=== PATIENT | male | born 1960 | race Caucasian/White ===

== ENCOUNTER 2016-08-26 02:27 | Emergency (ER) | payer BC ==
[~2016-08-26] VITALS: Ht 167.6 cm; Wt 76.9 kg
[~2016-08-26 02:27] MED LIST: ASPI81TA28 PO; BSP15 PO; CYAN1TAB2 PO; DIPH-416 PO; DTRSR/2 PO; DULO1CAP40 PO; FRCT/ PO; MELO7.5T5 PO; MGCCMP100 MT; MORP30TA PO; NRN800 PO; PRT/40 PO; RIZA1TAB11 PO; SRQ100 PO; SUCR1TAB29 PO; TADA5TAB11 PO; TEST1INJ2 INJ; WLLSR/200 PO
[2016-08-26 02:35] VITALS: TEMP 36.7; Ht 167.6 cm; Wt 76.9 kg
[2016-08-26] MEDS ORDERED: IBUPROFEN 600 MG TAB PO STA (03:01)
[2016-08-26] MEDS ORDERED: ACETAMINOPHEN 500 MG TAB PO STA (03:01)
[2016-08-26] MEDS ORDERED: BUPR200T2 PO (04:06)
[2016-08-26] MEDS ORDERED: AMPH20TA2 PO (04:07)
[2016-08-26] MEDS ORDERED: PRED20TA2 PO (04:14)
[2016-08-26] MEDS ORDERED: CYCL10TA6 PO (04:14)
[2016-08-26] MEDS ORDERED: FLEXERIL HOME PACK 10 MG VIAL PO ONE (04:15)
[2016-08-26 04:30] VITALS: BP 112/82; PULSE 67; O2SAT 97
--- NOTE | 2016-08-26 07:15 | DIAGNOSTIC IMAGING REPORT ---
C-SPINE ROUTINE 4 OR 5 VIEWS CLINICAL HISTORY: Fall. Neck pain. COMPARISON STUDY: Cervical spine radiographs June 19, [address] of the cervical spine March 29, 2016. FINDINGS: Visualization of the cervical spine is adequate. There is no acute fracture. Alignment is anatomic. Moderate multilevel degenerative disc disease and facet arthrosis is present. There is multilevel bony neural foraminal narrowing. Prevertebral soft tissues are unremarkable. IMPRESSION: 1. No acute cervical spine fracture or subluxation. 2. Moderate multilevel degenerative disc disease and facet arthrosis of the cervical spine. Electronically signed by: Brian Zepeda M.D. 08/26/2016 7:14 AM Dictated Date/Time: 08/26/2016 7:11 AM
--- NOTE | 2016-08-27 06:02 | EMERGENCY ROOM VISIT NOTE ---
History First contact with patient: 02:44 Chief Complaint: NECK PAIN Stated Complaint: NECK,SHOULDER AND BACK PAIN History of Present Illness The patient is a 56 year old male who presents to the Emergency Room with complaints of slowly worsening neck pain after a fall that occurred 3 days ago. The patient is well-known to the emergency department and today is the patient 's 24th visit in the past 12 months. He is typically seen for various pain related complaints after falling at home. The patient has chronic pain and takes daily morphine and oxycodone. He states that he was walking in his kitchen when he slipped on a fur rug, falling, and injuring himself. He was able to get up following the event without significant difficulty. He states that he had been doing well until this evening when he started to have more tightness in his neck. He does not have fever or chills. He is without lightheadedness or dizziness. He rates his discomfort a 9/10 and his at home medications are not helping his pain. Review of Systems More than 10 systems were reviewed and otherwise negative with the exception of history of present illness. Past Medical/Surgical History Medical Problems: (1) Altered mental status (2) Anemia (3) ANXIETY STATE NOS (4) Asthma (5) ATTN DEFIC NONHYPERACT (6) BENIGN HYPERTENSION (7) BIPOLAR DISORDER, UNSPECIFIED (8) Chronic back pain (9) Chronic low back pain (10) Chronic lumbar pain (11) Chronic pain syndrome (12) CHRONIC PEPTIC ULCER NOS (13) DEPRESSIVE DISORDER NEC (14) DIVERTICULOSIS COLON (W/O MENT OF HEMORRHAGE) (15) Elevated CPK (16) ESOPHAGEAL REFLUX (17) IDIOPATHIC TRANSVERSE MYELITIS (18) Low testosterone (19) MIGRAINE UNSPECIFIED W/O INTRACT MGRN W/O STATUS MIGRAINOSUS (20) Neuropathy (21) Tobacco abuse (22) Transverse myelitis (23) Urinary retention Surgical Problems: (1) S/P decompression of ulnar nerve at elbow Family History Anxiety disorder MOTHER Cancer Diabetes mellitus MOTHER FH: CAD (coronary artery disease) FATHER BROTHER FH: CHF (congestive heart failure) FATHER FH: HTN (hypertension) FH: dementia FATHER FH: diabetes mellitus FH: kidney failure Heart disease Hypertension MOTHER Kidney disease SISTER Social History Smoking Status: Current Every Day Smoker Alcohol Use: none Drug Use: none Marital Status: Housing Status: lives with significant other Occupation Status: disabled Current/Historical Medications Scheduled Amphetamine-Dextroamphetamine 20MG (Adderall 20MG), 20 MG PO BID Aspirin (Aspirin Ec), 81 MG PO DAILY Bupropion (Wellbutrin Sr), 200 MG PO BID Buspirone HCl (Buspirone HCl), 15 MG PO TID Cyanocobalamin (B-12), 100 MCG PO DAILY Cyclobenzaprine Hcl (Flexeril), 10 MG PO TID Duloxetine HCl (Duloxetine HCl), 60 MG PO DAILY Gabapentin (Gabapentin), 800 MG PO QID Meloxicam (Mobic), 7.5 MG PO BID Pantoprazole (Pantoprazole Sodium), 40 MG PO DAILY Prednisone (Prednisone Tab), 2 TAB PO DAILY Quetiapine Fumarate (Quetiapine Fumarate), 200 MG PO HS Sucralfate (Carafate), 1 GM PO ACHS Testosterone Cypionate (Testosterone Cypionate), 100 MG INJ 2XWK Tolterodine Tartrate (Detrol LA), 2 MG PO BID Scheduled PRN Acetamin/Butalbital/Caffeine (Fioricet), 1-2 TABS PO BID PRN for Headache Diphenoxylate/Atropine (Lomotil), 1 TAB PO UD PRN for Diarrhea Quetiapine Fumarate (Quetiapine Fumarate), 100 MG PO Q6 PRN for insomnia Rizatriptan Benzoate (Rizatriptan Benzoate), 10 MG PO UD PRN for Headache Tadalafil (Cialis), 5 MG PO UD PRN for erectile dysfunction Allergies Coded Allergies: Ciprofloxacin (Verified Allergy, Intermediate, RASH, 07/21/16) rash / urticaria proximal to IV site after infusion 04/07/15 Penicillins (Verified Allergy, Intermediate, RASH, 07/21/16) Physical Exam Vital Signs Date Time Temp Pulse Resp B/P Pulse Ox O2 Delivery O2 Flow Rate FiO2 08/26/16 04:30 67 20 112/82 97 08/26/16 02:35 36.7 86 20 127/75 96 Room Air Pain Rating (0-10): 10.0 Physical Exam VITALS: Vitals are noted on the nurse's note and reviewed by myself. Vital signs stable. GENERAL: Well-developed, well-nourished, white male, who is in no acute distress and resting comfortably. Patient is cooperative with the examination. HEAD: Normocephalic atraumatic. EARS: External ear normal. External auditory canals clear, tympanic membranes pearly chandler without erythema or effusion bilaterally. EYES: Pupils equal round and reactive to light and accommodation. Conjunctivae without injection, sclerae without icterus. Extraocular movements intact. NOSE: Patent, turbinates without inflammation or discharge. MOUTH: Mucous membranes moist. Tonsils are not enlarged. Pharynx without erythema, blood, or exudate. Uvula midline. Airway patent. NECK: Supple without nuchal rigidity. No lymphadenopathy. No thyromegaly. Cervical spine is nontender. HEART: Regular rate and rhythm without murmurs gallops or rubs. LUNGS: Clear to auscultation bilaterally without wheezes, rales or rhonchi. No retractions or accessory muscle use. ABDOMEN: Positive normal bowel sounds x 4. Soft, nontender, without masses or organomegaly. No guarding or rebound tenderness. MUSCULOSKELETAL: No muscle atrophy, erythema, or edema noted. Full range of motion without joint tenderness in all extremities. Medical Decision & Procedures ER Provider Diagnostic Interpretation: C-SPINE ROUTINE 4 OR 5 VIEWS CLINICAL HISTORY: Fall. Neck pain. COMPARISON STUDY: Cervical spine radiographs June 19, [address] of the cervical spine March 29, 2016. FINDINGS: Visualization of the cervical spine is adequate. There is no acute fracture. Alignment is anatomic. Moderate multilevel degenerative disc disease and facet arthrosis is present. There is multilevel bony neural foraminal narrowing. Prevertebral soft tissues are unremarkable. IMPRESSION: 1. No acute cervical spine fracture or subluxation. 2. Moderate multilevel degenerative disc disease and facet arthrosis of the cervical spine. Medications Administered Medications (Trade) Dose Ordered Sig/Gurpreet Route Start Time Stop Time Status Last Admin Dose Admin Acetaminophen (Tylenol Tab) 1,000 mg NOW STAT PO 08/26/16 03:01 08/26/16 03:02 DC 08/26/16 03:08 1,000 MG Ibuprofen (Motrin Tab) 600 mg NOW STAT PO 08/26/16 03:01 08/26/16 03:02 DC 08/26/16 03:09 600 MG Cyclobenzaprine HCl (FLEXERIL 10MG Home Pack) 1 homepack UD ONCE PO 08/26/16 04:15 08/26/16 04:16 DC 1/27/17 04:24 1 HOMEPACK Prednisone (PredniSONE TAB) 40 mg NOW STAT PO 08/26/16 04:12 08/26/16 04:13 DC 08/26/16 04:24 40 MG ED Course Physical exam and history were performed. Nursing notes and EMR were reviewed. Patient appears to have neck pain after falling a few days ago. He does not have distinct tenderness on palpation or significant physical exam findings. When questioned where his pain was, he replied "I guess on the left". The patient requested pain medication here in the department and was given ibuprofen and Tylenol. Plain films of the neck were performed, and do not show acute fracture or dislocation. Overall the patient does appear stable for discharge home. The case was discussed with my attending physician, Dr. Burton, who also independently evaluated the patient. I did not feel comfortable providing the patient additional pain medication as he has significant medication at home. I do have ongoing concerns that he has drug seeking behavior, and that he abuses his home medications. I will provide the patient a course of Flexeril and prednisone. He must follow with his primary care physician or painter foreman for ongoing care and evaluation. He was otherwise invited back to the ER with any new, worsening, or concerning symptoms. The chart was completed utilizing [employer] Speech Voice Recognition Software. Grammatical errors, random word insertions, pronoun errors, and incomplete sentences are an occasional consequence of this system due to software limitations, ambient noise, and hardware issues. Any formal questions or concerns about the content, text, or information contained within the body of this dictation should be directly addressed to the provider for clarification. . Medical Decision Differential diagnosis includes, but is not limited to: Sprain, strain, fracture , dislocation, subluxation, contusion, and others [place] Drug Monitoring [place] Search Results: patient reviewed within database, see additional documentation Impression Primary Impression: Fall Additional Impression: Neck pain Departure Information Dispostion Home / Self-Care Condition GOOD Prescriptions Cyclobenzaprine Hcl (FLEXERIL) 10 Mg Tab 10 MG PO TID for 5 Days, #15 TAB Prov: Alen Puga PA-C 08/26/16 Prednisone (Prednisone Tab) 20 Mg Tab 2 TAB PO DAILY for 4 Days, #8 TAB Prov: Alen Puga PA-C 08/26/16 Forms HOME CARE DOCUMENTATION FORM, IMPORTANT VISIT INFORMATION Patient Instructions My [facility] Additional Instructions You were seen and evaluated today on an emergency basis only. This is not a substitute for, or an effort to provide, complete comprehensive medical care. It is not possible to recognize and treat all injuries or illnesses in a single emergency department visit. For this reason it is recommended that you followup with your primary care physician in the next 2-3 days for recheck of your condition. For baseline pain relief you may alternate ibuprofen and acetaminophen every 4 hours for pain control. Take 600 mg ibuprofen (Advil) and then 4 hours later take 1000 mg acetaminophen (Tylenol). Do not take more than 3000 mg acetaminophen in a single day. Take prednisone 40 mg daily for the next 5 days. Flexeril 1 tablet up to 3 times a day as needed for muscle spasms. No driving, working, or alcohol use with Flexeril. Continue your other medications as prescribed You are welcome to return to the emergency department anytime with new, worsening, or concerning symptoms. Problem Qualifiers
[2016-11-24] MEDS ORDERED: CYCL10TA6 PO (22:37)
[2016-12-12] MEDS ORDERED: DXY100 PO (08:59)
[2016-12-12] MEDS ORDERED: NICO14DI9 TD (08:59)
[2017-04-07] MEDS ORDERED: PRED20TA2 PO ×2 (15:31→15:40)
[2017-04-07] MEDS ORDERED: ZTHM250 PO (15:31)
== END 2016-08-26 04:31 | disposition home or self-care (01) ==
LOC: C.EDB 02:30
DX: M54.2 Cervicalgia (principal); G89.29 Other chronic pain; J45.909 Unspecified asthma, uncomplicated; F31.9 Bipolar disorder, unspecified; K21.9 Gastro-esophageal reflux disease without esophagitis; I10 Essential (primary) hypertension; Z83.3 Family history of diabetes mellitus; Z82.49 Family history of ischemic heart disease and other diseases of the circulatory system; Z84.1 Family history of disorders of kidney and ureter; F17.200 Nicotine dependence, unspecified, uncomplicated; Z79.82 Long term (current) use of aspirin; W18.09XA Striking against other object with subsequent fall, initial encounter; Y93.01 Activity, walking, marching and hiking; Y92.010 Kitchen of single-family (private) house as the place of occurrence of the external cause; Y99.8 Other external cause status

== ENCOUNTER 2016-09-20 21:30 | Emergency (ER) | payer BC ==
[~2016-09-20] VITALS: Ht 167.6 cm; Wt 75.3 kg
[~2016-09-20 21:30] MED LIST changes: +AMPH20TA2 PO; +BUPR200T2 PO; -MGCCMP100 MT; -MORP30TA PO; -WLLSR/200 PO
[2016-09-20 21:41] VITALS: TEMP 37.3; Ht 167.6 cm; Wt 75.3 kg
[2016-09-20] MEDS ORDERED: WLLSR/200 PO (23:36)
[2016-09-20] MEDS ORDERED: KETOROLAC TROMETHAMINE 60 MG/2 ML VIAL IM STA (23:38)
--- NOTE | 2016-09-21 00:09 | EMERGENCY ROOM VISIT NOTE ---
History Report prepared by Brendan: Kenia Brink Under the Supervision of: Dr. Dayana Cha D.O. First contact with patient: 23:05 Chief Complaint: BACK PAIN Stated Complaint: SEVERE BACK PAIN, LOWER LEFT AND LOWER RIGHT History of Present Illness The patient is a 56 year old male who presents to the Emergency Room with complaints of persistent left low back pain that began two-three days ago. He currently rates his discomfort as a 10/10 in severity and describes his discomfort as a sharp pain. The patient states that he has chronic back pain, and states that he previously has been on oxycodone daily for his discomfort. He states that he has a diagnosis of lumbar stenosis. The patient states that today he is also experiencing intermittent sharp pain in the right side of his back today, but is not as concerned about that today. He states that three weeks ago he was prescribed 50 mg oxycodone tablets to take four times a day. The patient notes that his prescription is down from 180 mg tablets four times a day. He states that his doctor is in the process of transitioning to [facility]. The patient states that Dr. Gonzalez set up an appointment for the patient at [facility], but the patient states that he missed his initial appointment because he is lazy. Source of History: patient Onset: 2-3 days ago Position: back (lower, left) Symptom Intensity: 10/10 Quality: sharp Timing: other (persistent) Review of Systems See HPI for pertinent positives & negatives. A total of 10 systems reviewed and were otherwise negative. Past Medical & Surgical Medical Problems: (1) Altered mental status (2) Anemia (3) ANXIETY STATE NOS (4) Asthma (5) ATTN DEFIC NONHYPERACT (6) BENIGN HYPERTENSION (7) BIPOLAR DISORDER, UNSPECIFIED (8) Chronic back pain (9) Chronic low back pain (10) Chronic lumbar pain (11) Chronic pain syndrome (12) CHRONIC PEPTIC ULCER NOS (13) DEPRESSIVE DISORDER NEC (14) DIVERTICULOSIS COLON (W/O MENT OF HEMORRHAGE) (15) Elevated CPK (16) ESOPHAGEAL REFLUX (17) IDIOPATHIC TRANSVERSE MYELITIS (18) Low testosterone (19) MIGRAINE UNSPECIFIED W/O INTRACT MGRN W/O STATUS MIGRAINOSUS (20) Neuropathy (21) Tobacco abuse (22) Transverse myelitis (23) Urinary retention Surgical Problems: (1) S/P decompression of ulnar nerve at elbow Family History Anxiety disorder MOTHER Cancer Diabetes mellitus MOTHER FH: CAD (coronary artery disease) FATHER BROTHER FH: CHF (congestive heart failure) FATHER FH: HTN (hypertension) FH: dementia FATHER FH: diabetes mellitus FH: kidney failure Heart disease Hypertension MOTHER Kidney disease SISTER Social History Smoking Status: Current Every Day Smoker Alcohol Use: none Drug Use: none Marital Status: Housing Status: lives with significant other Occupation Status: disabled Current/Historical Medications Scheduled Amphetamine-Dextroamphetamine 20MG (Adderall 20MG), 20 MG PO BID Aspirin (Aspirin Ec), 81 MG PO DAILY Bupropion (Wellbutrin Sr), 200 MG PO BID Buspirone HCl (Buspirone HCl), 15 MG PO TID Cyanocobalamin (B-12), 100 MCG PO DAILY Duloxetine HCl (Duloxetine HCl), 60 MG PO DAILY Gabapentin (Gabapentin), 800 MG PO QID Meloxicam (Mobic), 7.5 MG PO BID Pantoprazole (Pantoprazole Sodium), 40 MG PO DAILY Quetiapine Fumarate (Quetiapine Fumarate), 200 MG PO HS Sucralfate (Carafate), 1 GM PO ACHS Testosterone Cypionate (Testosterone Cypionate), 100 MG INJ 2XWK Tolterodine Tartrate (Detrol LA), 2 MG PO BID Scheduled PRN Acetamin/Butalbital/Caffeine (Fioricet), 1-2 TABS PO BID PRN for Headache Diphenoxylate/Atropine (Lomotil), 1 TAB PO UD PRN for Diarrhea Quetiapine Fumarate (Quetiapine Fumarate), 100 MG PO Q6 PRN for insomnia Rizatriptan Benzoate (Rizatriptan Benzoate), 10 MG PO UD PRN for Headache Tadalafil (Cialis), 5 MG PO UD PRN for erectile dysfunction Allergies Coded Allergies: Ciprofloxacin (Verified Allergy, Intermediate, RASH, 09/20/16) rash / urticaria proximal to IV site after infusion 04/07/15 Penicillins (Verified Allergy, Intermediate, RASH, 09/20/16) Physical Exam Vital Signs Date Time Temp Pulse Resp B/P Pulse Ox O2 Delivery O2 Flow Rate FiO2 09/21/16 01:39 71 16 137/86 99 09/21/16 00:21 79 20 138/93 98 Room Air 09/20/16 21:41 37.3 78 18 145/93 99 Room Air Physical Exam HEENT: Head - normocephalic and atraumatic Pupils are equal, round, and reactive to light. Extraocular eye muscles are intact, and sclera are anicteric. Nose - moist nasal mucosa without discharge. Mouth - moist buccal mucosa. Oropharynx is nonerythematous and there is no tonsillar exudate or edema noted. Neck: Supple; no JVD, nuchal rigidity, cervical lymphadenopathy. Heart: Regular rate and rhythm. There is a normal S1 and S2 with no murmurs, clicks, or gallops appreciated. Lungs: Clear to auscultation bilaterally with no wheezes, rales, or rhonchi. Abdomen: Soft, completely nontender, nondistended, with good bowel sounds. There are no palpable pulsatile masses or hepatosplenomegaly. There is no guarding, rigidity, or rebound noted. Extremities: No evidence of cyanosis, clubbing, or edema. There are easily palpable peripheral pulses. Skin: warm and dry with good turgor and no rashes. Medical Decision & Procedures Medications Administered Medications (Trade) Dose Ordered Sig/Gurpreet Route Start Time Stop Time Status Last Admin Dose Admin Ketorolac Tromethamine (Toradol Inj) 60 mg NOW STAT IM 09/20/16 23:38 09/20/16 23:39 DC 09/20/16 23:44 60 MG Morphine Sulfate (MoRPHine SULFATE INJ) 6 mg NOW STAT IM 09/21/16 00:45 09/21/16 00:46 DC 09/21/16 00:53 6 MG Procedure The patient was treated with 60 mg IM Toradol Inj, 6 mg IM Morphine Sulfate. ED Course 2333: Past medical records reviewed. The patient was evaluated in room B10. A complete history and physical exam was performed. The PADMP was reviewed with regards to his narcotic prescriptions. 2338: Ordered Toradol Inj 60 mg IM. 0040: I reevaluated the patient and he is still in pain. 0045: Ordered Morphine Sulfate 6 mg IM. 0128: I reevaluated the patient and he states that his pain is a little bit better. He states that he typically receives 10 mg of Morphine instead of 6 mg. I discussed the treatment plan with him and he verbalized complete understanding and agreement. He is ready to go home. Medical Decision The patient is a 56 year old male who presents to the ED with back pain. Differential diagnosis includes exacerbation of low back pain, narcotic withdrawal, sciatica. The patient has a history of long-standing back pain for which he is followed by Dr. Gonzalez. The patient explains that he is being weaned off of his oxycodone. In fact, he believes that he ran out of them approximately 3-5 days ago. He was scheduled to see pain management but missed the appointment. I have provided the patient some pain medication here in the emergency department but did not feel comfortable prescribing anything outpatient. I have suggested that he contact Dr. Gonzalez to let him know that he missed the arranged [facility]. I have suggested that the patient go back to his PCP with regards to his chronic pain. I also recommended that he take every effort to avoid additional falls. [place] Drug [place] Search Results: patient reviewed within database, see additional documentation Drug Monitoring Findings: The patient was prescribed 165 30 mg tablets on the 23 of August. Impression Primary Impression: Low back pain Scribe Attestation The scribe's documentation has been prepared under my direction and personally reviewed by me in its entirety. I confirm that the note above accurately reflects all work, treatment, procedures, and medical decision making performed by me. Departure Information Dispostion Home / Self-Care Referrals Darren Flores M.D. (PCP) Forms HOME CARE DOCUMENTATION FORM, IMPORTANT VISIT INFORMATION Patient Instructions Back Pain - [facility], [facility] Additional Instructions Follow up with Dr. Gonzalez for referral to Pain Management Problem Qualifiers Primary Impression: Low back pain Chronicity: chronic
[2016-09-21] MEDS ORDERED: HYDROmorphone INJ 2 MG/ML SYR/VIAL IM STA (00:40)
[2016-09-21] MEDS ORDERED: MoRPHine SULFATE 10 MG/ML CARP/VIAL IM STA (00:45)
[2016-09-21 01:39] VITALS: BP 137/86; PULSE 71; O2SAT 99
[2016-11-24] MEDS ORDERED: CYCL10TA6 PO (22:37)
[2016-12-12] MEDS ORDERED: DXY100 PO (08:59)
[2016-12-12] MEDS ORDERED: NICO14DI9 TD (08:59)
[2017-04-07] MEDS ORDERED: ZTHM250 PO (15:31)
[2017-04-07] MEDS ORDERED: PRED20TA2 PO ×2 (15:31→15:40)
== END 2016-09-21 01:40 | disposition home or self-care (01) ==
LOC: C.EDB 21:31
DX: M54.5 Low back pain (principal); G89.29 Other chronic pain; I10 Essential (primary) hypertension; F32.9 Major depressive disorder, single episode, unspecified; K57.30 Diverticulosis of large intestine without perforation or abscess without bleeding; K21.9 Gastro-esophageal reflux disease without esophagitis; F31.9 Bipolar disorder, unspecified; J45.909 Unspecified asthma, uncomplicated; F90.9 Attention-deficit hyperactivity disorder, unspecified type; F41.9 Anxiety disorder, unspecified; F17.200 Nicotine dependence, unspecified, uncomplicated; Z87.11 Personal history of peptic ulcer disease; Z98.890 Other specified postprocedural states; Z79.82 Long term (current) use of aspirin; Z79.899 Other long term (current) drug therapy; Z88.0 Allergy status to penicillin; Z88.2 Allergy status to sulfonamides; Z83.3 Family history of diabetes mellitus; Z82.49 Family history of ischemic heart disease and other diseases of the circulatory system; Z84.1 Family history of disorders of kidney and ureter; Z80.9 Family history of malignant neoplasm, unspecified

== ENCOUNTER 2016-09-23 00:25 | Emergency (ER) | payer BC ==
[~2016-09-23] VITALS: Ht 167.6 cm; Wt 77.2 kg
[2016-09-23 00:35] VITALS: TEMP 37.3; Ht 167.6 cm; Wt 77.2 kg
[2016-09-23] MEDS ORDERED: SODIUM CHLORIDE 0.9% 1000ML 1,000 ML IV STA (01:04)
[2016-09-23] MEDS ORDERED: QUET1TAB10 PO (01:09)
[2016-09-23] MEDS ORDERED: CLIN150C PO (01:11)
[2016-09-23 01:36] LABS: BASO % 0.9 %; BASO ABS # 0.06 K/uL (0-0.2); COMPLETE YES; EOS % 2.2 %; HEMATOCRIT 36.9 % (42-52); IG% 0.2 %; LYMPH ABS # 2.42 K/uL (1.2-3.4); MEAN CELL VOLUME 86.6 fL (80-100); MEAN CORPUSCULAR HEMOGLOBIN 28.4 pg (25-34); MEAN CORPUSCULAR HGB CONC 32.8 g/dl (32-36); MEAN PLATELET VOLUME 10.4 fL (7.4-10.4); MONO % 8.6 %; NEUT % 50.1 %; PLATELET COUNT 294 K/uL (130-400); RED BLOOD COUNT 4.26 M/uL (4.7-6.1); WHITE BLOOD COUNT 6.37 K/uL (4.8-10.8)
[2016-09-23 01:53] LABS: ALT/SGPT 23 U/L (12-78); AST/SGOT 13 U/L (15-37); BLOOD UREA NITROGEN 17 mg/dl (7-18); BUN/CREATININE RATIO 15.7 (10-20); CARBON DIOXIDE 29 mmol/L (21-32); CHLORIDE 107 mmol/L (98-107); GLUCOSE 80 mg/dl (70-99); POTASSIUM 3.5 mmol/L (3.5-5.1); SODIUM 143 mmol/L (136-145)
[2016-09-23 01:56] LABS: ALKALINE PHOSPHATASE 80 U/L (45-117)
[2016-09-23] MEDS ORDERED: MoRPHine SULFATE 10 MG/ML CARP/VIAL IV STA (02:02)
[2016-09-23] MEDS ORDERED: PROCHLORPERAZINE 5 MG/ML 2 ML VIAL IV STA (02:02)
[2016-09-23 03:44] VITALS: BP 129/86; PULSE 71; O2SAT 95
[2016-09-23 03:59] LABS: URINE APPEARANCE CLEAR (CLEAR); URINE BILIRUBIN NEG (NEG); URINE COLOR YELLOW; URINE NITRITE NEG (NEG); URINE PH 6.5 (4.5-7.5); URINE SPECIFIC GRAVITY 1.017 (1.000-1.030); UROBILINOGEN NEG (NEG); ZZUR CULT IF INDIC CLEAN CATCH NO
[2016-09-23 04:00] LABS: MANUAL MICROSCOPIC REQUIRED? NO; REVIEW REQ? NO
--- NOTE | 2016-09-23 08:08 | EMERGENCY ROOM VISIT NOTE ---
History Report prepared by Brendan: Tita Bernal Under the Supervision of: Dr. Bakari Walker M.D. First contact with patient: 01:03 Chief Complaint: OTHER COMPLAINT Stated Complaint: RABOMYOLISIS SYMPTOMS History of Present Illness The patient is a 56 year old male who presents to the Emergency Room with complaints of worsened lower back pain over the past few days. He also complains of worsened lower extremity neuropathy, right worse than left. He states that his right leg also feels numb. His current overall discomfort is a 10/10 in severity. The patient has a history of rhabdomyolysis and believes that he is having a flare up. He has been hospitalized for rhabdomyolysis in the past, most recently this past May. He is unsure of the cause of his rhabdomyolysis. The patient was in the emergency room 3 days ago for back pain and was discharged feeling better after receiving a dose of pain medication. He denies any recent falls or injuries recently other than stumbling a few times yesterday. The patient is prescribed oxycodone from Dr. Gonzalez of Neurology, although he notes that he is being weaned off of the pain medication and he is currently out of pain medication. He notes that he is on Clindamycin for dental issues. Pt denies LOC, headache, fevers, chills, diaphoresis, visual changes, neck pain, chest pain, breathing difficulties, nausea, vomiting, abdominal pain , melena, hematochezia, urinary symptoms, weakness, lymphadenopathy, rash, or other complaints. Source of History: patient Onset: a few days ago Position: back (lower) Symptom Intensity: 10/10 Timing: worsening Associated Symptoms: + numbness (right leg) Note: Other symptoms: leg pain (neuropathy) Review of Systems See HPI for pertinent positives and negatives. A total of ten systems were reviewed and were otherwise negative. Past Medical & Surgical Medical Problems: (1) Altered mental status (2) Anemia (3) ANXIETY STATE NOS (4) Asthma (5) ATTN DEFIC NONHYPERACT (6) BENIGN HYPERTENSION (7) BIPOLAR DISORDER, UNSPECIFIED (8) Chronic back pain (9) Chronic low back pain (10) Chronic lumbar pain (11) Chronic pain syndrome (12) CHRONIC PEPTIC ULCER NOS (13) DEPRESSIVE DISORDER NEC (14) DIVERTICULOSIS COLON (W/O MENT OF HEMORRHAGE) (15) Elevated CPK (16) ESOPHAGEAL REFLUX (17) IDIOPATHIC TRANSVERSE MYELITIS (18) Low testosterone (19) MIGRAINE UNSPECIFIED W/O INTRACT MGRN W/O STATUS MIGRAINOSUS (20) Neuropathy (21) Tobacco abuse (22) Transverse myelitis (23) Urinary retention Surgical Problems: (1) S/P decompression of ulnar nerve at elbow Family History Anxiety disorder MOTHER Cancer Diabetes mellitus MOTHER FH: CAD (coronary artery disease) FATHER BROTHER FH: CHF (congestive heart failure) FATHER FH: HTN (hypertension) FH: dementia FATHER FH: diabetes mellitus FH: kidney failure Heart disease Hypertension MOTHER Kidney disease SISTER Social History Smoking Status: Current Every Day Smoker Alcohol Use: none Drug Use: none Marital Status: Housing Status: lives with significant other Occupation Status: disabled Current/Historical Medications Scheduled Amphetamine-Dextroamphetamine 20MG (Adderall 20MG), 20 MG PO BID Aspirin (Aspirin Ec), 81 MG PO DAILY Bupropion (Wellbutrin Sr), 200 MG PO BID Buspirone HCl (Buspirone HCl), 15 MG PO TID Clindamycin Hcl (Cleocin), 150 MG PO BID Duloxetine HCl (Duloxetine HCl), 60 MG PO DAILY Gabapentin (Gabapentin), 800 MG PO QID Pantoprazole (Pantoprazole Sodium), 40 MG PO DAILY Quetiapine Fumarate (Seroquel), 200 MG PO HS Sucralfate (Carafate), 1 GM PO ACHS Testosterone Cypionate (Testosterone Cypionate), 100 MG INJ 2XWK Tolterodine Tartrate (Detrol LA), 2 MG PO BID Scheduled PRN Acetamin/Butalbital/Caffeine (Fioricet), 1-2 TABS PO BID PRN for Headache Diphenoxylate/Atropine (Lomotil), 1 TAB PO UD PRN for Diarrhea Rizatriptan Benzoate (Rizatriptan Benzoate), 10 MG PO UD PRN for Headache Tadalafil (Cialis), 5 MG PO UD PRN for erectile dysfunction Allergies Coded Allergies: Ciprofloxacin (Verified Allergy, Intermediate, RASH, 09/23/16) rash / urticaria proximal to IV site after infusion 04/07/15 Penicillins (Verified Allergy, Intermediate, RASH, 09/23/16) Physical Exam Vital Signs Date Time Temp Pulse Resp B/P Pulse Ox O2 Delivery O2 Flow Rate FiO2 09/23/16 03:44 71 20 129/86 95 09/23/16 02:26 78 16 147/96 97 Room Air 09/23/16 01:29 78 09/23/16 00:35 37.3 83 18 161/92 100 Room Air Physical Exam GENERAL: Awake, alert, uncomfortable-appearing, in no distress HENT: Normocephalic, atraumatic. Oropharynx unremarkable. EYES: Normal conjunctiva. Sclera non-icteric. NECK: Supple. No nuchal rigidity. FROM. No JVD. RESPIRATORY: Clear to auscultation. CARDIAC: Regular rate, normal rhythm. Extremities warm and well perfused. Pulses equal. ABDOMEN: Soft, non-distended. No tenderness to palpation. No rebound or guarding. No masses. RECTAL: Deferred. MUSCULOSKELETAL: Chest examination reveals no tenderness. The back is symmetrical on inspection without obvious abnormality. There is no CVA tenderness to palpation. No joint edema. LOWER EXTREMITIES: Calves are equal size bilaterally and non-tender. No edema. No discoloration. NEURO: Normal sensorium. No sensory or motor deficits noted. Difficulty testing strength in the legs secondary to pain. No saddle anesthesias. Symmetric 2+ reflexes bilaterally. SKIN: No rash or jaundice noted. Medical Decision & Procedures Laboratory Results 09/23/16 01:21 Red Blood Count 4.26, Mean Corpuscular Volume 86.6, Mean Corpuscular Hemoglobin 28.4, Mean Corpuscular Hemoglobin Concent 32.8, Mean Platelet Volume 10.4, Neutrophils (%) (Auto) 50.1, Lymphocytes (%) (Auto) 38.0, Monocytes (%) (Auto) 8.6, Eosinophils (%) (Auto) 2.2, Basophils (%) (Auto) 0.9, Neutrophils # (Auto) 3.19, Lymphocytes # (Auto) 2.42, Monocytes # (Auto) 0.55, Eosinophils # (Auto) 0.14, Basophils # (Auto) 0.06 09/23/16 01:21 Test 09/23/16 01:21 09/23/16 03:30 White Blood Count 6.37 K/uL (4.8-10.8) Red Blood Count 4.26 M/uL (4.7-6.1) Hemoglobin 12.1 g/dL (14.0-18.0) Hematocrit 36.9 % (42-52) Mean Corpuscular Volume 86.6 fL (80-100) Mean Corpuscular Hemoglobin 28.4 pg (25-34) Mean Corpuscular Hemoglobin Concent 32.8 g/dl (32-36) Platelet Count 294 K/uL (130-400) Mean Platelet Volume 10.4 fL (7.4-10.4) Neutrophils (%) (Auto) 50.1 % Lymphocytes (%) (Auto) 38.0 % Monocytes (%) (Auto) 8.6 % Eosinophils (%) (Auto) 2.2 % Basophils (%) (Auto) 0.9 % Neutrophils # (Auto) 3.19 K/uL (1.4-6.5) Lymphocytes # (Auto) 2.42 K/uL (1.2-3.4) Monocytes # (Auto) 0.55 K/uL (0.11-0.59) Eosinophils # (Auto) 0.14 K/uL (0-0.5) Basophils # (Auto) 0.06 K/uL (0-0.2) RDW Standard Deviation 59.3 fL (36.4-46.3) RDW Coefficient of Variation 18.6 % (11.5-14.5) Immature Granulocyte % (Auto) 0.2 % Immature Granulocyte # (Auto) 0.01 K/uL (0.00-0.02) Anion Gap 7.0 mmol/L (3-11) Est Creatinine Clear Calc Drug Dose 75.1 ml/min Estimated GFR () 87.7 Estimated GFR (Non- 75.7 BUN/Creatinine Ratio 15.7 (10-20) Calcium Level 8.0 mg/dl (8.5-10.1) Total Bilirubin 0.1 mg/dl (0.2-1) Direct Bilirubin < 0.1 mg/dl (0-0.2) Aspartate Amino Transf (AST/SGOT) 13 U/L (15-37) Alanine Aminotransferase (ALT/SGPT) 23 U/L (12-78) Alkaline Phosphatase 80 U/L (45-117) Total Creatine Kinase 285 U/L (39-308) Total Protein 6.9 gm/dl (6.4-8.2) Albumin 4.0 gm/dl (3.4-5.0) Lipase 189 U/L (73-393) Urine Color YELLOW Urine Appearance CLEAR (CLEAR) Urine pH 6.5 (4.5-7.5) Urine Specific [place] 1.017 (1.000-1.030) Urine Protein NEG (NEG) Urine Glucose (UA) NEG (NEG) Urine Ketones NEG (NEG) Urine Occult Blood NEG (NEG) Urine Nitrite NEG (NEG) Urine Bilirubin NEG (NEG) Urine Urobilinogen NEG (NEG) Urine Leukocyte Esterase NEG (NEG) Laboratory results reviewed by me Medications Administered Medications (Trade) Dose Ordered Sig/Gurpreet Route Start Time Stop Time Status Last Admin Dose Admin Sodium Chloride (Nss 1000ml) 1,000 ml @ 999 mls/hr Q1H1M STAT IV 09/23/16 01:04 09/23/16 02:04 DC 09/23/16 01:26 999 MLS/HR Morphine Sulfate (MoRPHine SULFATE INJ) 8 mg NOW STAT IV 09/23/16 02:02 09/23/16 02:04 DC 09/23/16 02:26 8 MG Prochlorperazine Edisylate (Compazine Inj) 10 mg NOW STAT IV 09/23/16 02:02 09/23/16 02:04 DC 09/23/16 02:25 10 MG ED Course 0104: Ordered NSS 1000 ml @ 999 mls/hr IV. 0113: The patient was evaluated in room C3. A complete history and physical exam was performed. 0202: Ordered Compazine Inj 10 mg IV, Morphine Sulfate 8 mg IV. 0334: I reevaluated the patient. He was feeling better. Discussed results and discharge instructions: He verbalized understanding and agreement. The patient is ready for discharge. Medical Decision Triage Nursing notes reviewed. The patient's presentation and history were concerning for myalgias and back pain. Etiologies such as myalgias and myositis, rhabdomyolysis, narcotic withdrawal, lumbago, sciatica, cauda equina, epidural abscess, osteomyelitis, fracture, aortic disease, metastatic disease, infection, renal colic, gastrointestinal, as well as others were entertained. The patient was evaluated. He had no significant neurologic findings on examination. The patient has had numerous visits for similar complaints. Record review indicates he has had significant narcotic prescriptions recently. The patient is on a treatment plan here. Blood work was obtained. He had an unremarkable CBC and chemistry panel. His total CK was normal. The patient was hydrated. He was given morphine and Compazine 1. On reassessment he did feel better. I did outline the findings. He has myalgias but no evidence of rhabdomyolysis. The patient had an unremarkable urinalysis. I discussed conservative management with him. He has a pending appointment for follow-up regarding his pain prescriptions. Given the amount of pain medications he was producing taking anything there is a component of withdrawal. I did discuss this with him. Patient has had no new trauma to warrant imaging. By the evaluation outlined above other emergent etiologies such as those listed in the differential, as well as others, were deemed relatively unlikely. The patient was informed about the findings as listed above. All questions were answered and he was pleased with the treatment. Return instructions were outlined and the patient was discharged in stable condition. The patient was referred to his PCP and neurologist for follow-up for a recheck of the current condition. The chart was completed utilizing [employer] Speech voice recognition software. Grammatical errors, random word insertions, pronoun errors, and incomplete sentences are an occasional consequence of this system due to software limitations, ambient noise, and hardware issues. Any formal questions or concerns about the content, text, or information contained within the body of this dictation should be directly addressed to the physician for clarification. [place] Drug Monitoring Program Search Results: patient reviewed within database Impression Primary Impression: Myalgia Additional Impressions: Right leg numbness Back pain Scribe Attestation The scribe's documentation has been prepared under my direction and personally reviewed by me in its entirety. I confirm that the note above accurately reflects all work, treatment, procedures, and medical decision making performed by me. Departure Information Dispostion Home / Self-Care Referrals Darren Flores M.D. (PCP) Patient Instructions [facility] Additional Instructions DO NOT drive, drink alcohol, operate machinery, or perform dangerous activities today. You were given medications in the ER that can affect your ability to safely function or operate a vehicle. Follow-up with pain management as discussed. Ibuprofen(Motrin, Advil) may be used for fever or pain. Use 600mg every six hours as needed. Take with food. Avoid using more than 2400mg in a 24 hour period. Do not use 2400mg per day for more than three consecutive days without physician direction. Prolonged inappropriate use can lead to stomach upset or ulcers. This medication can be taken if you need to drive, work, or perform activities which may be dangerous when taking narcotic pain medication. (AND/OR) Acetaminophen(Tylenol) may be used for fever or pain. Use 1000mg every six hours as needed. Avoid using more than 4000mg in a 24 hour period. This medication can be taken if you need to drive, work, or perform activities which may be dangerous when taking narcotic pain medication. Rest and avoid heavy lifting until your symptoms resolve and then gradually return to full activity. A good rule of thumb is if it hurts your back to perform a certain activity, then it should be avoided until you are healthy again. A heating pad, warm compresses, or a hot shower may help with tight muscles and can be done several times a day as needed. Continue current medications. Return to the ER immediately for any numbness, tingling, severe pain, loss of control of your bowels or bladder, inability to walk, or as needed. Follow up with your primary care physician within one to 2 days for a recheck of your current condition. Problem Qualifiers
[2016-11-24] MEDS ORDERED: CYCL10TA6 PO (22:37)
[2016-12-12] MEDS ORDERED: NICO14DI9 TD (08:59)
[2016-12-12] MEDS ORDERED: DXY100 PO (08:59)
[2017-04-07] MEDS ORDERED: PRED20TA2 PO ×2 (15:31→15:40)
[2017-04-07] MEDS ORDERED: ZTHM250 PO (15:31)
== END 2016-09-23 03:45 | disposition home or self-care (01) ==
LOC: C.EDB 00:26 → C.EDC 03:45
DX: M79.1 Myalgia (principal); R20.0 Anesthesia of skin; M54.9 Dorsalgia, unspecified; J45.909 Unspecified asthma, uncomplicated; I10 Essential (primary) hypertension; F17.200 Nicotine dependence, unspecified, uncomplicated; F32.9 Major depressive disorder, single episode, unspecified; K21.9 Gastro-esophageal reflux disease without esophagitis; Z79.82 Long term (current) use of aspirin; Z88.0 Allergy status to penicillin; Z88.1 Allergy status to other antibiotic agents; Z84.1 Family history of disorders of kidney and ureter; Z81.8 Family history of other mental and behavioral disorders; Z83.3 Family history of diabetes mellitus; Z82.49 Family history of ischemic heart disease and other diseases of the circulatory system; Z80.9 Family history of malignant neoplasm, unspecified

== ENCOUNTER 2016-10-04 22:47 | Emergency (ER) | payer BC ==
[~2016-10-04] VITALS: Ht 167.6 cm; Wt 76.0 kg
[~2016-10-04 22:47] MED LIST changes: +CLIN150C PO; -CYAN1TAB2 PO; -MELO7.5T5 PO; +QUET1TAB10 PO; -SRQ100 PO
[2016-10-04 22:52] VITALS: TEMP 37.3; Ht 167.6 cm; Wt 76.0 kg
--- NOTE | 2016-10-04 23:15 | EMERGENCY ROOM VISIT NOTE ---
History Report prepared by Deborahibe: Gabriela Huang Under the Supervision of: Dr. Remigio Solis M.D. First contact with patient: 23:06 Chief Complaint: FALL Stated Complaint: FELL BACKWARDS INTO TUB, HIT HEAD AND BACK History of Present Illness The patient is a 56 year old male who presents to the Emergency Room with complaints of a fall that occurred approximately 2 hours prior to arrival. He is accompanied by his . He reports he was in the bathtub this evening when he lost his balance and fell backwards, hitting the back of his head and lower back. He rates his pain as a 10/10 in intensity. He reports Tylenol and Motrin have provided no relief. He denies any loss of consciousness after the fall. The patient is scheduled to see [facility] next week, as he has a history of chronic back and neck pain. He admits to numbness and tingling in his legs, but states this is chronic for him. 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 A total of 10 systems reviewed and were otherwise negative. Past Medical & Surgical Medical Problems: (1) Altered mental status (2) Anemia (3) ANXIETY STATE NOS (4) Asthma (5) ATTN DEFIC NONHYPERACT (6) BENIGN HYPERTENSION (7) BIPOLAR DISORDER, UNSPECIFIED (8) Chronic back pain (9) Chronic low back pain (10) Chronic lumbar pain (11) Chronic pain syndrome (12) CHRONIC PEPTIC ULCER NOS (13) DEPRESSIVE DISORDER NEC (14) DIVERTICULOSIS COLON (W/O MENT OF HEMORRHAGE) (15) Elevated CPK (16) ESOPHAGEAL REFLUX (17) IDIOPATHIC TRANSVERSE MYELITIS (18) Low testosterone (19) MIGRAINE UNSPECIFIED W/O INTRACT MGRN W/O STATUS MIGRAINOSUS (20) Neuropathy (21) Tobacco abuse (22) Transverse myelitis (23) Urinary retention Surgical Problems: (1) S/P decompression of ulnar nerve at elbow Family History Anxiety disorder MOTHER Cancer Diabetes mellitus MOTHER FH: CAD (coronary artery disease) FATHER BROTHER FH: CHF (congestive heart failure) FATHER FH: HTN (hypertension) FH: dementia FATHER FH: diabetes mellitus FH: kidney failure Heart disease Hypertension MOTHER Kidney disease SISTER Social History Smoking Status: Never Smoker Alcohol Use: none Drug Use: none Marital Status: Housing Status: lives with significant other Occupation Status: disabled Current/Historical Medications Scheduled Amphetamine-Dextroamphetamine 20MG (Adderall 20MG), 20 MG PO BID Aspirin (Aspirin Ec), 81 MG PO DAILY Bupropion (Wellbutrin Sr), 200 MG PO BID Buspirone HCl (Buspirone HCl), 15 MG PO TID Clindamycin Hcl (Cleocin), 150 MG PO BID Duloxetine HCl (Duloxetine HCl), 60 MG PO DAILY Gabapentin (Gabapentin), 800 MG PO QID Pantoprazole (Pantoprazole Sodium), 40 MG PO DAILY Quetiapine Fumarate (Seroquel), 200 MG PO HS Sucralfate (Carafate), 1 GM PO ACHS Testosterone Cypionate (Testosterone Cypionate), 100 MG INJ 2XWK Tolterodine Tartrate (Detrol LA), 2 MG PO BID Scheduled PRN Acetamin/Butalbital/Caffeine (Fioricet), 1-2 TABS PO BID PRN for Headache Diphenoxylate/Atropine (Lomotil), 1 TAB PO UD PRN for Diarrhea Rizatriptan Benzoate (Rizatriptan Benzoate), 10 MG PO UD PRN for Headache Tadalafil (Cialis), 5 MG PO UD PRN for erectile dysfunction Allergies Coded Allergies: Ciprofloxacin (Verified Allergy, Intermediate, RASH, 10/04/16) rash / urticaria proximal to IV site after infusion 04/07/15 Penicillins (Verified Allergy, Intermediate, RASH, 10/04/16) Physical Exam Vital Signs Date Time Temp Pulse Resp B/P Pulse Ox O2 Delivery O2 Flow Rate FiO2 10/05/16 01:13 77 18 140/93 99 10/05/16 00:27 80 18 158/101 97 Room Air 10/04/16 22:52 37.3 92 20 161/90 100 Room Air Physical Exam GENERAL: Patient is a healthy-appearing well-nourished 56 year old male. He can walk on his feet. HEAD: Normocephalic atraumatic EYES: Ocular movements intact pupils equal and react to light OROPHARYNX mucous membranes are moist no exudates present no erythema or edema present NECK: Supple no nuchal rigidity CHEST: Good equal expansion LUNGS: Clear and equal to auscultation CARDIAC: Normal S1 and S2 ABDOMEN: Soft nontender no guarding BACK: No CVA tenderness EXTREMITIES: No pain upon palpation normal muscle strength in all groups no clubbing cyanosis or edema. No evidence of saddle anesthesia. NEURO: Patient is following commands is answering questions appropriately. Alert and oriented x3 Cranial Nerves 2-12 grossly intact. Patient appears neurologically intact. Medical Decision & Procedures ER Provider Diagnostic Interpretation: This X-Ray was reviewed and interpreted by myself as we do not have a radiologist on staff overnight. X-RAY, L-SPINE, 4 VIEWS This X-Ray shows no evidence of fracture, dislocation or subluxation. Large amount of stool present. This CT scan was reviewed and interpreted by the radiologist and reviewed by myself. CT head No ICH, mass effect or edema. No skull fracture. Radiologist: Dr. Catrachito Ledesma MD Medications Administered Medications (Trade) Dose Ordered Sig/Gurpreet Route Start Time Stop Time Status Last Admin Dose Admin Morphine Sulfate (MoRPHine SULFATE INJ) 10 mg NOW STAT IM 10/04/16 23:16 10/04/16 23:18 DC 10/04/16 23:23 10 MG Ketorolac Tromethamine (Toradol Inj) 60 mg NOW STAT IM 10/04/16 23:16 10/04/16 23:18 DC 10/04/16 23:23 60 MG Morphine Sulfate (MoRPHine SULFATE INJ) 10 mg NOW STAT IM 10/05/16 00:54 10/05/16 00:55 DC 10/05/16 01:03 10 MG ED Course 2308: Past medical records reviewed. The patient was evaluated in room B12. A complete history and physical examination was performed. 2316: Toradol 60 mg IM, Morphine Sulfate 10 mg IM. 0052: I reevaluated the patient. He is feeling better. I discussed his results and discharge instructions and he verbalized complete understanding and agreement. 0054: Morphine Sulfate 10 mg IM. Medical Decision Prior records/ancillary studies reviewed. Triage Nursing notes reviewed. The patient's history was concerning for back pain. Differential diagnosis: Etiologies such as musculoskeletal, disc herniation, fracture, aortic disease, metastatic disease, cord compression, discitis, infection, renal colic, gastrointestinal, acute exacerbation of chronic back pain, sciatica, cauda equina, as well as others were entertained. This is a 56-year-old male who presents emergency department complaining of fall at home. Using shared medical decision making patient wishes that CAT scan of his head as well as x-rays of his lower back. He is requesting pain medication. He is on the narcotic treatment plan and has not had his shots yet this month. For this reason the patient was given both morphine and Toradol. I will note that the patient is able to walk normally and has not lost control of his bowel or his bladder. CAT scan does not show any evidence of acute fracture dislocation. X-rays were interpreted by me do not show any evidence of acute fracture dislocation or subluxation. I believe based on these findings at the patient is safe enough to be discharged home for follow-up with his orthopedic surgeon. He is to see pain management on Monday. Patient was in agreement with the treatment plan. Impression Primary Impression: Fall Additional Impressions: Head injury Back pain Scribe Attestation The scribe's documentation has been prepared under my direction and personally reviewed by me in its entirety. I confirm that the note above accurately reflects all work, treatment, procedures, and medical decision making performed by me. Departure Information Dispostion Home / Self-Care Referrals Darren Flores M.D. (PCP) Patient Instructions ED Back Care Tips, ED Head Injury Closed, ED Sprain Strain Lumbar, [facility] Additional Instructions Follow up with DR Gonzalez and Dr Ngo You received narcotic or benzodiazepene medication while in the emergency room today. Do not drive, operate heavy machinery, or drink alcohol under the influence of this medication. Radiographs and CTs will be reread by a radiologist in the morning. You have been examined and treated today on an emergency basis only. This is not a substitute for, or an effort to provide, complete comprehensive medical care. It is impossible to recognize and treat all injuries or illnesses in a single emergency department visit. It is therefore important that you follow up closely with Mark. Call as soon as possible for an appointment. Thank you for your time and consideration. I look forward to speaking with you again soon. Please don't hesitate to call us if you have any questions. Problem Qualifiers Primary Impression: Fall Encounter type: initial encounter Qualified Codes: W19.XXXA - Unspecified fall, initial encounter Additional Impressions: Head injury Encounter type: initial encounter Qualified Codes: S09.90XA - Unspecified injury of head, initial encounter Back pain Back pain location: low back pain Chronicity: acute Back pain laterality: midline Sciatica presence: without sciatica Qualified Codes: M54.5 - Low back pain
[2016-10-04] MEDS ORDERED: KETOROLAC TROMETHAMINE 60 MG/2 ML VIAL IM STA (23:16)
[2016-10-04] MEDS ORDERED: MoRPHine SULFATE 10 MG/ML CARP/VIAL IM STA (23:16)
[2016-10-05] MEDS ORDERED: MoRPHine SULFATE 10 MG/ML CARP/VIAL IM STA (00:54)
[2016-10-05 01:13] VITALS: BP 140/93; PULSE 77; O2SAT 99
--- NOTE | 2016-10-05 06:49 | DIAGNOSTIC IMAGING REPORT ---
L-SPINE MIN 4 VIEWS ROUTINE CLINICAL HISTORY: Low back pain COMPARISON STUDY: 06/19/2016 FINDINGS: There is a moderate amount stool within the colon. There is a mild L1 compression deformity which is likely old. There are degenerative changes with disc space narrowing most pronounced at the L2-3 level. IMPRESSION: 1. Old mild L1 compression deformity 2. No acute fractures or subluxations 3. Moderate fecal retention Electronically signed by: Dann Dalal M.D. 10/05/2016 6:47 AM Dictated Date/Time: 10/05/2016 6:45 AM
--- NOTE | 2016-10-05 07:13 | DIAGNOSTIC IMAGING REPORT ---
HEAD CT NONCONTRAST CT DOSE: 537.48 mGy.cm HISTORY: Pt c/o head injury TECHNIQUE: Multiaxial CT images of the head were performed without the use of intravenous contrast. Automated exposure control was utilized for this study. Comparison: Head CT 07/11/2016. Findings: The paranasal sinuses and mastoid air cells are clear. The calvarium and skull base are intact. The ventricles and sulci are within normal limits. There is no mass, hematoma, midline shift, or acute infarct. Age-indeterminate nasal bone fracture. Impression: No acute intracranial abnormality. Age-indeterminate nasal bone fracture. Electronically signed by: Liban Boyle M.D. 10/05/2016 7:12 AM Dictated Date/Time: 10/05/2016 7:09 AM
[2016-11-24] MEDS ORDERED: CYCL10TA6 PO (22:37)
[2016-12-12] MEDS ORDERED: NICO14DI9 TD (08:59)
[2016-12-12] MEDS ORDERED: DXY100 PO (08:59)
[2017-04-07] MEDS ORDERED: PRED20TA2 PO ×2 (15:31→15:40)
[2017-04-07] MEDS ORDERED: ZTHM250 PO (15:31)
== END 2016-10-05 01:15 | disposition home or self-care (01) ==
LOC: C.EDB 22:49
DX: S09.90XA Unspecified injury of head, initial encounter (principal); W19.XXXA Unspecified fall, initial encounter; Y92.019 Unspecified place in single-family (private) house as the place of occurrence of the external cause; J45.909 Unspecified asthma, uncomplicated; F31.9 Bipolar disorder, unspecified; I10 Essential (primary) hypertension; K57.30 Diverticulosis of large intestine without perforation or abscess without bleeding; G89.29 Other chronic pain; F41.9 Anxiety disorder, unspecified; F90.9 Attention-deficit hyperactivity disorder, unspecified type; K21.9 Gastro-esophageal reflux disease without esophagitis; D64.9 Anemia, unspecified; Z87.11 Personal history of peptic ulcer disease; Z79.82 Long term (current) use of aspirin; Z79.899 Other long term (current) drug therapy; Z88.0 Allergy status to penicillin; Z88.2 Allergy status to sulfonamides; Z82.49 Family history of ischemic heart disease and other diseases of the circulatory system; Z83.3 Family history of diabetes mellitus; Z84.1 Family history of disorders of kidney and ureter

== ENCOUNTER 2016-10-21 13:10 | Emergency (ER) | payer BC ==
[~2016-10-21] VITALS: Ht 167.6 cm; Wt 74.0 kg
[2016-10-21 13:16] VITALS: Ht 167.6 cm; Wt 74.0 kg
[2016-10-21] MEDS ORDERED: KETOROLAC TROMETHAMINE 60 MG/2 ML VIAL IM STA (14:02)
--- NOTE | 2016-10-21 14:10 | EMERGENCY ROOM VISIT NOTE ---
ED Visit Note First contact with patient: 13:23 I have seen and examined this patient with Jameson Avina and generally agree with the treatment plan as discussed. Problem List Medical Problems: (1) Anemia Status: Chronic (2) ANXIETY STATE NOS Status: Chronic (3) Asthma Status: Chronic (4) ATTN DEFIC NONHYPERACT Status: Chronic (5) BENIGN HYPERTENSION Status: Chronic (6) BIPOLAR DISORDER, UNSPECIFIED Status: Chronic (7) Chronic back pain Status: Chronic (8) Chronic low back pain Status: Chronic (9) Chronic lumbar pain Status: Chronic (10) Chronic pain syndrome Status: Chronic (11) CHRONIC PEPTIC ULCER NOS Status: Chronic (12) DEPRESSIVE DISORDER NEC Status: Chronic (13) DIVERTICULOSIS COLON (W/O MENT OF HEMORRHAGE) Status: Chronic (14) ESOPHAGEAL REFLUX Status: Chronic (15) IDIOPATHIC TRANSVERSE MYELITIS Status: Chronic (16) Low testosterone Status: Chronic (17) MIGRAINE UNSPECIFIED W/O INTRACT MGRN W/O STATUS MIGRAINOSUS Status: Chronic (18) Neuropathy Status: Chronic (19) Tobacco abuse Status: Chronic (20) Transverse myelitis Status: Chronic (21) Urinary retention Status: Chronic Surgical Problems: (1) S/P decompression of ulnar nerve at elbow Status: Resolved Current/Historical Medications Scheduled Amphetamine-Dextroamphetamine 20MG (Adderall 20MG), 20 MG PO BID Aspirin (Aspirin Ec), 81 MG PO DAILY Bupropion (Wellbutrin Sr), 200 MG PO BID Buspirone HCl (Buspirone HCl), 15 MG PO TID Clindamycin Hcl (Cleocin), 150 MG PO BID Duloxetine HCl (Duloxetine HCl), 60 MG PO DAILY Gabapentin (Gabapentin), 800 MG PO QID Pantoprazole (Pantoprazole Sodium), 40 MG PO DAILY Quetiapine Fumarate (Seroquel), 200 MG PO HS Sucralfate (Carafate), 1 GM PO ACHS Testosterone Cypionate (Testosterone Cypionate), 100 MG INJ 2XWK Tolterodine Tartrate (Detrol LA), 2 MG PO BID Scheduled PRN Acetamin/Butalbital/Caffeine (Fioricet), 1-2 TABS PO BID PRN for Headache Diphenoxylate/Atropine (Lomotil), 1 TAB PO UD PRN for Diarrhea Rizatriptan Benzoate (Rizatriptan Benzoate), 10 MG PO UD PRN for Headache Tadalafil (Cialis), 5 MG PO UD PRN for erectile dysfunction Allergies Coded Allergies: Ciprofloxacin (Verified Allergy, Intermediate, RASH, 10/04/16) rash / urticaria proximal to IV site after infusion 04/07/15 Penicillins (Verified Allergy, Intermediate, RASH, 10/04/16) Vital Signs Date Time Temp Pulse Resp B/P Pulse Ox O2 Delivery O2 Flow Rate FiO2 10/21/16 13:16 109 16 166/98 98 Laboratory Results Test 10/21/16 13:55 Departure Information Referrals Darren Flores M.D. (PCP) Patient Instructions [facility]
[2016-10-21 15:20] VITALS: BP 157/99; PULSE 88; O2SAT 98
--- NOTE | 2016-10-21 15:20 | EMERGENCY ROOM VISIT NOTE ---
History First contact with patient: 13:23 Chief Complaint: FALL Stated Complaint: FALL YESTERDAY; URINE GETTING DARKER, SENT [facility] PCP History of Present Illness Patient is a 56-year-old white male who presents to the emergency department for evaluation of possible rhabdo. He reports "my urine is dark and my doctor sent he be here for a total CK and a urinalysis." He reports that he has a history of rhabdomyolysis. He then also notes that he had a mechanical fall last evening. He has a history of frequent falls. He states that he slipped on dog hair on his hardwood floor and struck the left side of his head on the table, then fell to the ground landing on his left hand side. His fall has exacerbated his chronic neck, back and shoulder pain. He has oxycodone which is prescribed by his pain management physician, Dr. Ayon at [facility], which he states that he took. He reports that he was asked his endocrinology appointment this morning and mentioned to them that his urine was getting darker. He reports that the media arts professor spoke with his PCP, Dr. Flores, who directed him to the emergency department for the laboratory studies. The patient presently rates his pain a 10/10. He did not lose consciousness associated with the fall. He states that he was able to get up without difficulty, and other than being in increased pain, had no other complaints or concerns. He denies any vomiting. He has chronic difficulty with balance and coordination due to his chronic back pain and cord injury. He was seen here just a few weeks ago for a fall as well. Review of Systems Review of systems as per HPI. All other systems reviewed were negative. 10 systems reviewed. Past Medical/Surgical History Medical Problems: (1) Altered mental status (2) Anemia (3) ANXIETY STATE NOS (4) Asthma (5) ATTN DEFIC NONHYPERACT (6) BENIGN HYPERTENSION (7) BIPOLAR DISORDER, UNSPECIFIED (8) Chronic back pain (9) Chronic low back pain (10) Chronic lumbar pain (11) Chronic pain syndrome (12) CHRONIC PEPTIC ULCER NOS (13) DEPRESSIVE DISORDER NEC (14) DIVERTICULOSIS COLON (W/O MENT OF HEMORRHAGE) (15) Elevated CPK (16) ESOPHAGEAL REFLUX (17) IDIOPATHIC TRANSVERSE MYELITIS (18) Low testosterone (19) MIGRAINE UNSPECIFIED W/O INTRACT MGRN W/O STATUS MIGRAINOSUS (20) Neuropathy (21) Tobacco abuse (22) Transverse myelitis (23) Urinary retention Surgical Problems: (1) S/P decompression of ulnar nerve at elbow Electronic medical records are reviewed and summarized as above/below. See Problem List. Family History Anxiety disorder MOTHER Cancer Diabetes mellitus MOTHER FH: CAD (coronary artery disease) FATHER BROTHER FH: CHF (congestive heart failure) FATHER FH: HTN (hypertension) FH: dementia FATHER FH: diabetes mellitus FH: kidney failure Heart disease Hypertension MOTHER Kidney disease SISTER Social History Smoking Status: Current Every Day Smoker Alcohol Use: none Drug Use: none Marital Status: Housing Status: lives with significant other Occupation Status: disabled Current/Historical Medications Scheduled Amphetamine-Dextroamphetamine 20MG (Adderall 20MG), 20 MG PO BID Aspirin (Aspirin Ec), 81 MG PO DAILY Bupropion (Wellbutrin Sr), 200 MG PO BID Buspirone HCl (Buspirone HCl), 15 MG PO TID Clindamycin Hcl (Cleocin), 150 MG PO BID Duloxetine HCl (Duloxetine HCl), 60 MG PO DAILY Gabapentin (Gabapentin), 800 MG PO QID Pantoprazole (Pantoprazole Sodium), 40 MG PO DAILY Quetiapine Fumarate (Seroquel), 200 MG PO HS Sucralfate (Carafate), 1 GM PO ACHS Testosterone Cypionate (Testosterone Cypionate), 100 MG INJ 2XWK Tolterodine Tartrate (Detrol LA), 2 MG PO BID Scheduled PRN Acetamin/Butalbital/Caffeine (Fioricet), 1-2 TABS PO BID PRN for Headache Diphenoxylate/Atropine (Lomotil), 1 TAB PO UD PRN for Diarrhea Rizatriptan Benzoate (Rizatriptan Benzoate), 10 MG PO UD PRN for Headache Tadalafil (Cialis), 5 MG PO UD PRN for erectile dysfunction Allergies Coded Allergies: Ciprofloxacin (Verified Allergy, Intermediate, RASH, 10/04/16) rash / urticaria proximal to IV site after infusion 04/07/15 Penicillins (Verified Allergy, Intermediate, RASH, 10/04/16) Physical Exam Vital Signs Date Time Temp Pulse Resp B/P Pulse Ox O2 Delivery O2 Flow Rate FiO2 10/21/16 15:20 88 16 157/99 98 Room Air 10/21/16 13:16 109 16 166/98 98 Physical Exam GENERAL: Patient is a chronically ill-appearing 56-year-old white male who is awake and alert and laying on the gurney in mild distress due to his pain. He appears older than his stated age. HEENT: Head -left frontotemporal scalp swelling. No hematoma. No step-off deformity. Pupils are equal, round, and reactive to light. Extraocular eye muscles are intact and sclera are anicteric. Ears - bilaterally patent canals with no evidence of hemotympanum. Nose - moist nasal mucosa without evidence of trauma or discharge. Mouth - moist buccal mucosa with no trauma to the teeth or signs of malocclusion. Neck: The neck is supple and there is no pain to palpation over the posterior cervical spine and no obvious step-offs or deformities. There is no JVD or tracheal deviation. Chest: There are no signs of deformities, contusions or abrasions to the chest wall. There is no obvious crepitus or paradoxical chest rise. Heart: Regular rate, and regular rhythm. There is a normal S1 and S2 with no murmurs, clicks, or gallops appreciated. Lungs: Breath sounds equal and clear to auscultation without wheezes, rales, or rhonchi heard. Abdomen: Soft, completely nontender, nondistended, with good bowel sounds. There is no sign of trauma such as contusions, abrasions or penetrations. There are no palpable pulsatile masses or hepatosplenomegaly. There is no guarding, rigidity, or rebound noted. Pelvis: Stable to rock and compression. Extremities: No obvious trauma, deformities, contusions, or edema. There are easily palpable peripheral pulses. Examination of the left shoulder does not demonstrate obvious deformity. The patient has exquisite tenderness to just the slightest touch over the left shoulder, pain is generalized. Range of motion is diminished secondary to discomfort. Neuro: The patient is awake and alert and easily able to follow commands. Muscle strength is 5 out of 5 in all 4 extremities. Otherwise, neuro exam is unremarkable. Back: The entire thoracic, lumbar, and sacral spine were palpated. No discomfort over the thoracic spine, there is pain to palpation over the low lumbar spine. There are no obvious step-offs or deformities noted. There are no obvious signs of trauma such as contusions abrasions penetrations noted to the back. Medical Decision & Procedures Laboratory Results Test 10/21/16 13:55 Total Creatine Kinase 423 U/L (39-308) Medications Administered Medications (Trade) Dose Ordered Sig/Gurpreet Route Start Time Stop Time Status Last Admin Dose Admin Ketorolac Tromethamine (Toradol Inj) 60 mg NOW STAT IM 10/21/16 14:02 10/21/16 14:03 DC 10/21/16 14:17 60 MG ED Course The patient was seen and evaluated as above. His old records are reviewed. He is on a 2 narcotic injection per month restriction due to his chronic pain related complaints. When he was here on October 04 for a fall, he received 2 separate injections of IM morphine. The patient was reminded of this, and it was discussed that he could not receive any additional narcotics while in the emergency department as he previously had received both his injections for the month of September. The patient was offered Toradol which he agreed to. I did call and speak with Dr. Saldaña who was covering for Dr. Flores. She reports that he is out of town and has been out of town since yesterday. She did not find any documentation that the patient was directed to the emergency department for these laboratory studies. The endocrinology note from this morning was not completed. Total CK was drawn and was 423, which was slightly elevated, but certainly not consistent with rhabdo. Regarding the patient's fall, he has a slight left- sided scalp hematoma. He denies any loss of consciousness. He has a benign neurologic exam otherwise and appears at his baseline. His old records are reviewed and he has had 5 head CTs in the last year. Given this, and his lack of worrisome physical exam findings, I discussed with him that I did not feel that it was appropriate, nor necessary to perform a new head CT at this time. The patient expressed understanding of this and was agreeable. Worsening signs or symptoms of a head injury were reviewed with him at length prior to discharge. His physical exam is otherwise benign. The fall has exacerbated his chronic underlying pain, but he does not appear to have sustained any acute fracture and it was not felt that any plain radiographs would be of benefit. The patient expressed understanding of this. He was medicated with Toradol 60 mg IM. Patient history and presentation and ED workup were reviewed with attending physician. The patient was unable to provide a urine sample while in the emergency department. He was not concerned that he had a UTI as he reports that he was recently treated for 1 and therefore felt comfortable leaving without having the urinalysis performed. The patient was discharged to home. He rated his discomfort and 8/10 at discharge. Medical Decision See ED course. [place] Drug Monitoring Program Search Results: patient reviewed within database Drug Monitoring Findings: Patient was previously receiving regular narcotic prescriptions from neurology, most recently received an oxycodone prescription from Dr. Ayon as he admitted. Impression Primary Impression: Head injury Additional Impressions: History of rhabdomyolysis Chronic low back pain Departure Information Referrals Darren Flores M.D. (PCP) Patient Instructions My [facility] Additional Instructions Follow-up with your doctors as scheduled. Return to the emergency department as needed. Problem Qualifiers Primary Impression: Head injury Encounter type: initial encounter Qualified Codes: S09.90XA - Unspecified injury of head, initial encounter Additional Impressions: Chronic low back pain Back pain laterality: unspecified Sciatica presence: without sciatica Qualified Codes: M54.5 - Low back pain; G89.29 - Other chronic pain
[2016-11-24] MEDS ORDERED: CYCL10TA6 PO (22:37)
[2016-12-12] MEDS ORDERED: NICO14DI9 TD (08:59)
[2016-12-12] MEDS ORDERED: DXY100 PO (08:59)
[2017-04-07] MEDS ORDERED: ZTHM250 PO (15:31)
[2017-04-07] MEDS ORDERED: PRED20TA2 PO ×2 (15:31→15:40)
== END 2016-10-21 15:25 | disposition home or self-care (01) ==
LOC: C.EDB 13:12 → C.EDD 15:25
DX: S09.90XA Unspecified injury of head, initial encounter (principal); W01.0XXA Fall on same level from slipping, tripping and stumbling without subsequent striking against object, initial encounter; M54.5 Low back pain; G89.29 Other chronic pain; J45.909 Unspecified asthma, uncomplicated; F32.9 Major depressive disorder, single episode, unspecified; F41.9 Anxiety disorder, unspecified; K21.9 Gastro-esophageal reflux disease without esophagitis; F31.9 Bipolar disorder, unspecified; Z98.890 Other specified postprocedural states; F17.200 Nicotine dependence, unspecified, uncomplicated; Z79.82 Long term (current) use of aspirin; Z88.0 Allergy status to penicillin; Z88.1 Allergy status to other antibiotic agents; Z81.8 Family history of other mental and behavioral disorders; Z83.3 Family history of diabetes mellitus; Z82.49 Family history of ischemic heart disease and other diseases of the circulatory system; Z82.0 Family history of epilepsy and other diseases of the nervous system; Z84.1 Family history of disorders of kidney and ureter

== ENCOUNTER 2016-11-22 22:42 | Emergency (ER) | payer BC ==
[~2016-11-22] VITALS: Ht 167.6 cm; Wt 68.8 kg
[~2016-11-22 22:42] MED LIST changes: +PANT40TA2 PO; -PRT/40 PO
[2016-11-22 22:52] VITALS: TEMP 37.3; Ht 167.6 cm; Wt 68.8 kg
[2016-11-22] MEDS ORDERED: LORAZEPAM 2 MG/ML 1 ML VIAL IV STA (22:57)
[2016-11-22] MEDS ORDERED: KETOROLAC TROMETHAMINE 30 MG/ML VIAL IV STA (22:57)
[2016-11-22] MEDS ORDERED: ALBUT/IPRATROP 3MG/0.5MG NEB 3 ML VIAL INH ONE (23:00)
[2016-11-22] MEDS ORDERED: SODIUM CHLORIDE 0.9% 1000ML 1,000 ML IV ONE (23:00)
[2016-11-22] MEDS ORDERED: NITROGLYCERIN OINT 2% 1GM PACKET EXT ONE (23:00)
[2016-11-22 23:06] LABS: BASO ABS # 0.08 K/uL (0-0.2); COMPLETE YES; EOS % 1.8 %; HEMATOCRIT 39.8 % (42-52); IG% 0.3 %; LYMPH % 36.6 %; LYMPH ABS # 2.88 K/uL (1.2-3.4); MEAN CORPUSCULAR HEMOGLOBIN 28.1 pg (25-34); MEAN CORPUSCULAR HGB CONC 32.7 g/dl (32-36); MEAN PLATELET VOLUME 10.6 fL (7.4-10.4); MONO % 8.9 %; NEUT % 51.4 %; PLATELET COUNT 284 K/uL (130-400); RED BLOOD COUNT 4.63 M/uL (4.7-6.1); WHITE BLOOD COUNT 7.87 K/uL (4.8-10.8)
[2016-11-22] MEDS ORDERED: RXC30 PO (23:06)
[2016-11-22] MEDS ORDERED: VST25HP PO (23:07)
[2016-11-22 23:27] LABS: BUN/CREATININE RATIO 7.9 (10-20); CALCIUM 8.9 mg/dl (8.5-10.1); CREATININE 1.2 mg/dl (0.60-1.40); POTASSIUM 3.6 mmol/L (3.5-5.1)
[2016-11-22] MEDS ORDERED: OPTIRAY 320 IV PRN (23:30)
[2016-11-22 23:37] LABS: ALB/GLOB RATIO 1.3 (0.9-2); CKMB/CK RATIO 2.1 (0-3.0); THYROID STIMULATING HORMONE 1.14 uIu/ml (0.300-4.500)
--- NOTE | 2016-11-23 01:38 | EMERGENCY ROOM VISIT NOTE ---
ED Visit Note First contact with patient: 22:45 Patient evaluated by myself in conjunction with Alen Robles physician claims assistant. Patient's cardiac evaluation was essentially negative patient also received a CT angiogram was negative for pulmonary embolism repeat examination the patient 137 the patient's resting in no distress. I agree with the evaluation the patient will be discharged for follow-up Problem List Medical Problems: (1) Anemia Status: Chronic (2) ANXIETY STATE NOS Status: Chronic (3) Asthma Status: Chronic (4) ATTN DEFIC NONHYPERACT Status: Chronic (5) BENIGN HYPERTENSION Status: Chronic (6) BIPOLAR DISORDER, UNSPECIFIED Status: Chronic (7) Chronic back pain Status: Chronic (8) Chronic low back pain Status: Chronic (9) Chronic lumbar pain Status: Chronic (10) Chronic pain syndrome Status: Chronic (11) CHRONIC PEPTIC ULCER NOS Status: Chronic (12) DEPRESSIVE DISORDER NEC Status: Chronic (13) DIVERTICULOSIS COLON (W/O MENT OF HEMORRHAGE) Status: Chronic (14) ESOPHAGEAL REFLUX Status: Chronic (15) IDIOPATHIC TRANSVERSE MYELITIS Status: Chronic (16) Low testosterone Status: Chronic (17) MIGRAINE UNSPECIFIED W/O INTRACT MGRN W/O STATUS MIGRAINOSUS Status: Chronic (18) Neuropathy Status: Chronic (19) Tobacco abuse Status: Chronic (20) Transverse myelitis Status: Chronic (21) Urinary retention Status: Chronic Surgical Problems: (1) S/P decompression of ulnar nerve at elbow Status: Resolved Current/Historical Medications Scheduled Aspirin (Aspirin Ec), 81 MG PO DAILY Bupropion (Wellbutrin Sr), 200 MG PO BID Buspirone HCl (Buspirone HCl), 15 MG PO TID Clindamycin Hcl (Cleocin), 150 MG PO BID Duloxetine HCl (Duloxetine HCl), 60 MG PO DAILY Gabapentin (Gabapentin), 800 MG PO QID Pantoprazole (Pantoprazole Sodium), 40 MG PO DAILY Quetiapine Fumarate (Seroquel), 200 MG PO HS Sucralfate (Carafate), 1 GM PO ACHS Testosterone Cypionate (Testosterone Cypionate), 100 MG INJ 2XWK Tolterodine Tartrate (Detrol LA), 2 MG PO BID Scheduled PRN Acetamin/Butalbital/Caffeine (Fioricet), 1-2 TABS PO BID PRN for Headache Diphenoxylate/Atropine (Lomotil), 1 TAB PO UD PRN for Diarrhea Hydroxyzine HCl (Hydroxyzine Pamoate), 25 MG PO Q8 PRN for Anxiety Oxycodone HCl (Oxycodone HCl), 30 MG PO QID PRN for Pain Rizatriptan Benzoate (Rizatriptan Benzoate), 10 MG PO UD PRN for Headache Tadalafil (Cialis), 5 MG PO UD PRN for erectile dysfunction Allergies Coded Allergies: Ciprofloxacin (Verified Allergy, Intermediate, RASH, 11/22/16) rash / urticaria proximal to IV site after infusion 04/07/15 Penicillins (Verified Allergy, Intermediate, RASH, 11/22/16) Vital Signs Date Time Temp Pulse Resp B/P Pulse Ox O2 Delivery O2 Flow Rate FiO2 11/22/16 23:42 69 18 11/22/16 23:12 86 15 97 11/22/16 23:01 80 11/22/16 23:00 125/92 11/22/16 22:57 Room Air 11/22/16 22:52 37.3 81 24 120/83 100 Room Air 11/22/16 22:52 Room Air 11/22/16 22:48 120/83 Laboratory Results 11/22/16 22:47 Red Blood Count 4.63, Mean Corpuscular Volume 86.0, Mean Corpuscular Hemoglobin 28.1, Mean Corpuscular Hemoglobin Concent 32.7, Mean Platelet Volume 10.6, Neutrophils (%) (Auto) 51.4, Lymphocytes (%) (Auto) 36.6, Monocytes (%) (Auto) 8.9, Eosinophils (%) (Auto) 1.8, Basophils (%) (Auto) 1.0, Neutrophils # (Auto) 4.05, Lymphocytes # (Auto) 2.88, Monocytes # (Auto) 0.70, Eosinophils # (Auto) 0.14, Basophils # (Auto) 0.08 11/22/16 22:47 Test 11/22/16 22:47 11/22/16 22:52 11/23/16 01:13 White Blood Count 7.87 K/uL (4.8-10.8) Red Blood Count 4.63 M/uL (4.7-6.1) Hemoglobin 13.0 g/dL (14.0-18.0) Hematocrit 39.8 % (42-52) Mean Corpuscular Volume 86.0 fL (80-100) Mean Corpuscular Hemoglobin 28.1 pg (25-34) Mean Corpuscular Hemoglobin Concent 32.7 g/dl (32-36) Platelet Count 284 K/uL (130-400) Mean Platelet Volume 10.6 fL (7.4-10.4) Neutrophils (%) (Auto) 51.4 % Lymphocytes (%) (Auto) 36.6 % Monocytes (%) (Auto) 8.9 % Eosinophils (%) (Auto) 1.8 % Basophils (%) (Auto) 1.0 % Neutrophils # (Auto) 4.05 K/uL (1.4-6.5) Lymphocytes # (Auto) 2.88 K/uL (1.2-3.4) Monocytes # (Auto) 0.70 K/uL (0.11-0.59) Eosinophils # (Auto) 0.14 K/uL (0-0.5) Basophils # (Auto) 0.08 K/uL (0-0.2) RDW Standard Deviation 50.1 fL (36.4-46.3) RDW Coefficient of Variation 15.9 % (11.5-14.5) Immature Granulocyte % (Auto) 0.3 % Immature Granulocyte # (Auto) 0.02 K/uL (0.00-0.02) Anion Gap 8.0 mmol/L (3-11) Est Creatinine Clear Calc Drug Dose 63.5 ml/min Estimated GFR () 79.0 Estimated GFR (Non- 68.1 BUN/Creatinine Ratio 7.9 (10-20) Calcium Level 8.9 mg/dl (8.5-10.1) Total Bilirubin 0.4 mg/dl (0.2-1) Aspartate Amino Transf (AST/SGOT) 24 U/L (15-37) Alanine Aminotransferase (ALT/SGPT) 35 U/L (12-78) Alkaline Phosphatase 88 U/L (45-117) Total Creatine Kinase 459 U/L (39-308) Creatine Kinase MB 9.6 ng/ml (0.5-3.6) Creatine Kinase MB Ratio 2.1 (0-3.0) Total Protein 7.5 gm/dl (6.4-8.2) Albumin 4.3 gm/dl (3.4-5.0) Globulin 3.2 gm/dl (2.5-4.0) Albumin/Globulin Ratio 1.3 (0.9-2) Lipase 145 U/L (73-393) Thyroid Stimulating Hormone (TSH) 1.140 uIu/ml (0.300-4.500) Bedside D-Dimer > 450 ng/mlFEU (0-450) Bedside Troponin I 0.000 ng/ml (0-0.045) Medications Administered Medications (Trade) Dose Ordered Sig/Gurpreet Route Start Time Stop Time Status Last Admin Dose Admin Sodium Chloride (Nss 1000ml) 1,000 ml @ 999 mls/hr Q1H1M ONCE IV 11/22/16 23:00 11/23/16 00:00 DC 11/22/16 23:00 999 MLS/HR Nitroglycerin (Nitroglycerin 2% Oint) 1 inch NOW ONCE EXT 11/22/16 23:00 11/22/16 23:01 DC 11/22/16 23:00 1 INCH Albuterol/ Ipratropium (Duoneb) 3 ml NOW ONCE INH 11/22/16 23:00 11/22/16 23:01 DC 11/22/16 23:12 3 ML Lorazepam (Ativan Inj) 1 mg NOW STAT IV 11/22/16 22:57 11/22/16 22:59 DC 11/22/16 23:13 1 MG Ketorolac Tromethamine (Toradol Inj) 30 mg NOW STAT IV 11/22/16 22:57 11/22/16 22:59 DC 11/22/16 23:13 30 MG Departure Information Referrals Darren Flores M.D. (PCP) Patient Instructions My [facility]
[2016-11-23 01:59] VITALS: BP 121/86; PULSE 73; O2SAT 99
--- NOTE | 2016-11-23 04:49 | EMERGENCY ROOM VISIT NOTE ---
History First contact with patient: 22:45 Chief Complaint: CHEST PAIN Stated Complaint: CHEST PAIN, SOB Nursing Triage Summary: chest pain while sitting in the kitchen. 1 SL nitro given by EMS. Had adult aspirin today History of Present Illness The patient is a 56 year old male who presents to the Emergency Room with complaints of central chest pain that feels like a band across his chest that began about 1 hour prior to arrival. The patient states that he was standing in his kitchen when his symptoms began. He contacted EMS and was given 1 sublingual nitroglycerin without improvement of his discomfort. The patient does take aspirin on a daily basis. He does not report a personal history of cardiac disease, but states that his father from heart failure symptoms. The patient has not had recent fever or chills. He is without shortness of breath or dyspnea on exertion. The patient is well-known to the emergency department and today's 24th visit in the past 12 months for various complaints. He is on chronic high-dose narcotics for chronic back pain. He states he is taking these as prescribed. He does not have new medications or recent travel history. He does not have extremity pain or swelling. He was not doing anything abnormal at the time of onset of symptoms. He rates his discomfort a 9/10. Review of Systems More than 10 systems were reviewed and otherwise negative with the exception of history of present illness. Past Medical/Surgical History Medical Problems: (1) Altered mental status (2) Anemia (3) ANXIETY STATE NOS (4) Asthma (5) ATTN DEFIC NONHYPERACT (6) BENIGN HYPERTENSION (7) BIPOLAR DISORDER, UNSPECIFIED (8) Chronic back pain (9) Chronic low back pain (10) Chronic lumbar pain (11) Chronic pain syndrome (12) CHRONIC PEPTIC ULCER NOS (13) DEPRESSIVE DISORDER NEC (14) DIVERTICULOSIS COLON (W/O MENT OF HEMORRHAGE) (15) Elevated CPK (16) ESOPHAGEAL REFLUX (17) IDIOPATHIC TRANSVERSE MYELITIS (18) Low testosterone (19) MIGRAINE UNSPECIFIED W/O INTRACT MGRN W/O STATUS MIGRAINOSUS (20) Neuropathy (21) Tobacco abuse (22) Transverse myelitis (23) Urinary retention Surgical Problems: (1) S/P decompression of ulnar nerve at elbow Family History Anxiety disorder MOTHER Cancer Diabetes mellitus MOTHER FH: CAD (coronary artery disease) FATHER BROTHER FH: CHF (congestive heart failure) FATHER FH: HTN (hypertension) FH: dementia FATHER FH: diabetes mellitus FH: kidney failure Heart disease Hypertension MOTHER Kidney disease SISTER Social History Smoking Status: Current Every Day Smoker Alcohol Use: none Drug Use: none Marital Status: Housing Status: lives with significant other Occupation Status: disabled Current/Historical Medications Scheduled Aspirin (Aspirin Ec), 81 MG PO DAILY Bupropion (Wellbutrin Sr), 200 MG PO BID Buspirone HCl (Buspirone HCl), 15 MG PO TID Clindamycin Hcl (Cleocin), 150 MG PO BID Duloxetine HCl (Duloxetine HCl), 60 MG PO DAILY Gabapentin (Gabapentin), 800 MG PO QID Pantoprazole (Pantoprazole Sodium), 40 MG PO DAILY Quetiapine Fumarate (Seroquel), 200 MG PO HS Sucralfate (Carafate), 1 GM PO ACHS Testosterone Cypionate (Testosterone Cypionate), 100 MG INJ 2XWK Tolterodine Tartrate (Detrol LA), 2 MG PO BID Scheduled PRN Acetamin/Butalbital/Caffeine (Fioricet), 1-2 TABS PO BID PRN for Headache Diphenoxylate/Atropine (Lomotil), 1 TAB PO UD PRN for Diarrhea Hydroxyzine HCl (Hydroxyzine Pamoate), 25 MG PO Q8 PRN for Anxiety Oxycodone HCl (Oxycodone HCl), 30 MG PO QID PRN for Pain Rizatriptan Benzoate (Rizatriptan Benzoate), 10 MG PO UD PRN for Headache Tadalafil (Cialis), 5 MG PO UD PRN for erectile dysfunction Allergies Coded Allergies: Ciprofloxacin (Verified Allergy, Intermediate, RASH, 11/22/16) rash / urticaria proximal to IV site after infusion 04/07/15 Penicillins (Verified Allergy, Intermediate, RASH, 11/22/16) Physical Exam Vital Signs Date Time Temp Pulse Resp B/P Pulse Ox O2 Delivery O2 Flow Rate FiO2 11/23/16 01:59 73 16 121/86 99 11/22/16 23:42 69 18 11/22/16 23:12 86 15 97 11/22/16 23:01 80 11/22/16 23:00 125/92 11/22/16 22:57 Room Air 11/22/16 22:52 37.3 81 24 120/83 100 Room Air 11/22/16 22:52 Room Air 11/22/16 22:48 120/83 Pain Rating (0-10): 0 Physical Exam VITALS: Vitals are noted on the nurse's note and reviewed by myself. Vital signs stable. GENERAL: Well-developed, well-nourished, white male, who appears in no acute distress and is cooperative with the examination. HEAD: Normocephalic atraumatic. HEART: Regular rate and rhythm without murmurs gallops or rubs. LUNGS: Clear to auscultation bilaterally without wheezes, rales or rhonchi. No retractions or accessory muscle use. ABDOMEN: Positive normal bowel sounds x 4. Soft, nontender, without masses or organomegaly. No guarding or rebound tenderness. MUSCULOSKELETAL: No muscle atrophy, erythema, or edema noted. Full range of motion without joint tenderness in all extremities. NEURO: Patient was alert and oriented to person place and time. CN II through XII grossly intact. Medical Decision & Procedures Laboratory Results 11/22/16 22:47 Red Blood Count 4.63, Mean Corpuscular Volume 86.0, Mean Corpuscular Hemoglobin 28.1, Mean Corpuscular Hemoglobin Concent 32.7, Mean Platelet Volume 10.6, Neutrophils (%) (Auto) 51.4, Lymphocytes (%) (Auto) 36.6, Monocytes (%) (Auto) 8.9, Eosinophils (%) (Auto) 1.8, Basophils (%) (Auto) 1.0, Neutrophils # (Auto) 4.05, Lymphocytes # (Auto) 2.88, Monocytes # (Auto) 0.70, Eosinophils # (Auto) 0.14, Basophils # (Auto) 0.08 11/22/16 22:47 Test 11/22/16 22:47 11/22/16 22:52 11/23/16 01:13 White Blood Count 7.87 K/uL (4.8-10.8) Red Blood Count 4.63 M/uL (4.7-6.1) Hemoglobin 13.0 g/dL (14.0-18.0) Hematocrit 39.8 % (42-52) Mean Corpuscular Volume 86.0 fL (80-100) Mean Corpuscular Hemoglobin 28.1 pg (25-34) Mean Corpuscular Hemoglobin Concent 32.7 g/dl (32-36) Platelet Count 284 K/uL (130-400) Mean Platelet Volume 10.6 fL (7.4-10.4) Neutrophils (%) (Auto) 51.4 % Lymphocytes (%) (Auto) 36.6 % Monocytes (%) (Auto) 8.9 % Eosinophils (%) (Auto) 1.8 % Basophils (%) (Auto) 1.0 % Neutrophils # (Auto) 4.05 K/uL (1.4-6.5) Lymphocytes # (Auto) 2.88 K/uL (1.2-3.4) Monocytes # (Auto) 0.70 K/uL (0.11-0.59) Eosinophils # (Auto) 0.14 K/uL (0-0.5) Basophils # (Auto) 0.08 K/uL (0-0.2) RDW Standard Deviation 50.1 fL (36.4-46.3) RDW Coefficient of Variation 15.9 % (11.5-14.5) Immature Granulocyte % (Auto) 0.3 % Immature Granulocyte # (Auto) 0.02 K/uL (0.00-0.02) Anion Gap 8.0 mmol/L (3-11) Est Creatinine Clear Calc Drug Dose 63.5 ml/min Estimated GFR () 79.0 Estimated GFR (Non- 68.1 BUN/Creatinine Ratio 7.9 (10-20) Calcium Level 8.9 mg/dl (8.5-10.1) Total Bilirubin 0.4 mg/dl (0.2-1) Aspartate Amino Transf (AST/SGOT) 24 U/L (15-37) Alanine Aminotransferase (ALT/SGPT) 35 U/L (12-78) Alkaline Phosphatase 88 U/L (45-117) Total Creatine Kinase 459 U/L (39-308) Creatine Kinase MB 9.6 ng/ml (0.5-3.6) Creatine Kinase MB Ratio 2.1 (0-3.0) Total Protein 7.5 gm/dl (6.4-8.2) Albumin 4.3 gm/dl (3.4-5.0) Globulin 3.2 gm/dl (2.5-4.0) Albumin/Globulin Ratio 1.3 (0.9-2) Lipase 145 U/L (73-393) Thyroid Stimulating Hormone (TSH) 1.140 uIu/ml (0.300-4.500) Bedside D-Dimer > 450 ng/mlFEU (0-450) Bedside Troponin I 0.000 ng/ml (0-0.045) Medications Administered Medications (Trade) Dose Ordered Sig/Gurpreet Route Start Time Stop Time Status Last Admin Dose Admin Sodium Chloride (Nss 1000ml) 1,000 ml @ 999 mls/hr Q1H1M ONCE IV 11/22/16 23:00 11/23/16 00:00 DC 11/22/16 23:00 999 MLS/HR Nitroglycerin (Nitroglycerin 2% Oint) 1 inch NOW ONCE EXT 11/22/16 23:00 11/22/16 23:01 DC 11/22/16 23:00 1 INCH Albuterol/ Ipratropium (Duoneb) 3 ml NOW ONCE INH 11/22/16 23:00 11/22/16 23:01 DC 11/22/16 23:12 3 ML Lorazepam (Ativan Inj) 1 mg NOW STAT IV 11/22/16 22:57 11/22/16 22:59 DC 11/22/16 23:13 1 MG Ketorolac Tromethamine (Toradol Inj) 30 mg NOW STAT IV 11/22/16 22:57 11/22/16 22:59 DC 11/22/16 23:13 30 MG ED Course Physical exam and history were performed. Nursing notes and EMR were reviewed. Patient appears to have chest pain that began about 1 hour prior to arrival. EKG was performed and was normal sinus rhythm at 86 beats per minute without acute ST elevation or ectopy. EKG was unchanged from 07/04/2016. IV access was established and labs were obtained. The patient requested pain medication multiple times for his symptoms. He was treated here in the department with 1 inch Nitropaste, 30 mg IV Toradol, and 1 mg IV Ativan. He was placed on a playground monitor. Chest x-ray was performed. The patient's blood work is as above and was reviewed. The patient does not have a significantly elevated white blood cell count. He has some very mild anemia which appears chronic. He does not have a gross electrolyte imbalance. Chest x-ray was without obvious acute findings. His d-dimer was elevated and CT angiogram was performed and was negative for pulmonary embolism. Troponin 2 was negative. The patient did not have significant changes while on the playground monitor. On multiple re-evaluations the patient was found to be sleeping and difficult to arouse. When he was awoken he did request pain medication, but this did not appear reasonable as the patient is quite sedated. The case was discussed with my attending physician, Dr Kamara, who also independently evaluated the patient. Overall we feel the patient is stable for discharge home. He does not appear to have an acute cardiopulmonary process such as RI, PE, dissection, or other life-threatening etiology of his symptoms. The patient is to follow-up with his primary care physician in the next 1-2 days for recheck of his condition. He is to continue his home medications as prescribed. The patient will be discharged home under the care of his and was invited back to the ER anytime with any new, worsening, or concerning symptoms. The chart was completed utilizing [employer] Speech Voice Recognition Software. Grammatical errors, random word insertions, pronoun errors, and incomplete sentences are an occasional consequence of this system due to software limitations, ambient noise, and hardware issues. Any formal questions or concerns about the content, text, or information contained within the body of this dictation should be directly addressed to the provider for clarification. . Medical Decision Differential diagnosis includes, but is not limited to: Myocardial infarction, dysrhythmia, pericarditis, pneumothorax, aortic aneurysm/dissection, DVT/PE, anxiety, GERD, PUD, electrolyte imbalance, thyroid disorder, pneumonia, bronchitis, pancreatitis, and others Impression Primary Impression: Central chest pain Departure Information Dispostion Home / Self-Care Condition GOOD Forms HOME CARE DOCUMENTATION FORM, IMPORTANT VISIT INFORMATION Patient Instructions My [facility] Additional Instructions You were seen and evaluated today on an emergency basis only. This is not a substitute for, or an effort to provide, complete comprehensive medical care. It is not possible to recognize and treat all injuries or illnesses in a single emergency department visit. For this reason it is recommended that you followup with your primary care physician in the next 1-2 days for recheck. Continue your medications as prescribed. You are welcome to return to the emergency department anytime with new, worsening, or concerning symptoms.
--- NOTE | 2016-11-23 06:53 | DIAGNOSTIC IMAGING REPORT ---
CT ANGIOGRAM OF THE CHEST CLINICAL HISTORY: Atypical chest pain with elevated d-dimer COMPARISON STUDY: 08/25/2015 TECHNIQUE: Following the IV administration of 92 mL of Optiray-320, CT angiogram of the thorax was performed from the thoracic inlet to the lung bases utilizing the pulmonary embolus protocol. Images are reviewed in the axial, sagittal, and coronal planes. IV contrast was administered without complication. MIP imaging was performed. CT DOSE: 230.37 mGy.cm FINDINGS: No pathologically enlarged axillary mediastinal or hilar lymph nodes were visualized. There was no evidence of thoracic aortic dilatation. There were no pulmonary artery filling defects to indicate acute pulmonary embolism. No pleural effusions are visualized. Mildly limited secondary to respiratory motion artifact. There are bilateral dependent groundglass opacities. There is borderline esophageal wall thickening. The heart is mildly enlarged IMPRESSION: 1. No CT evidence of acute pulmonary embolism 2. Dependent groundglass opacities, likely atelectatic 3. Borderline esophageal wall thickening Electronically signed by: Dann Dalal M.D. 11/23/2016 6:51 AM Dictated Date/Time: 11/23/2016 6:48 AM
--- NOTE | 2016-11-23 07:16 | DIAGNOSTIC IMAGING REPORT ---
CHEST 2 VIEWS ROUTINE CLINICAL HISTORY: Atypical chest pain COMPARISON STUDY: No previous studies for comparison. FINDINGS: The cardiac and mediastinal contours are normal. There is no evidence of focal pulmonary consolidation. There is no evidence of failure. No pleural effusions are visualized.[ There is slight thickening of the basal interstitial markings. IMPRESSION: Subtle interstitial thickening. No evidence of focal pulmonary consolidation. No evidence of failure. Electronically signed by: Dann Dalal M.D. 11/23/2016 7:14 AM Dictated Date/Time: 11/23/2016 7:13 AM
[2016-11-24] MEDS ORDERED: CYCL10TA6 PO (22:37)
[2016-12-12] MEDS ORDERED: NICO14DI9 TD (08:59)
[2016-12-12] MEDS ORDERED: DXY100 PO (08:59)
[2017-04-07] MEDS ORDERED: PRED20TA2 PO ×2 (15:31→15:40)
[2017-04-07] MEDS ORDERED: AZIT-57 PO (15:31)
== END 2016-11-23 01:59 | disposition home or self-care (01) ==
LOC: EDBD 22:42 → C.EDC 22:43
DX: R07.9 Chest pain, unspecified (principal); F41.9 Anxiety disorder, unspecified; J45.909 Unspecified asthma, uncomplicated; F98.8 Other specified behavioral and emotional disorders with onset usually occurring in childhood and adolescence; I10 Essential (primary) hypertension; F31.9 Bipolar disorder, unspecified; K27.7 Chronic peptic ulcer, site unspecified, without hemorrhage or perforation; K21.9 Gastro-esophageal reflux disease without esophagitis; G37.3 Acute transverse myelitis in demyelinating disease of central nervous system; G43.909 Migraine, unspecified, not intractable, without status migrainosus; F17.210 Nicotine dependence, cigarettes, uncomplicated; Z80.9 Family history of malignant neoplasm, unspecified; Z83.3 Family history of diabetes mellitus; Z82.49 Family history of ischemic heart disease and other diseases of the circulatory system; Z84.1 Family history of disorders of kidney and ureter; Z79.82 Long term (current) use of aspirin; Z79.899 Other long term (current) drug therapy

== ENCOUNTER 2016-11-23 04:19 | Emergency (ER) | payer BC ==
[~2016-11-23] VITALS: Ht 167.6 cm; Wt 77.0 kg
[~2016-11-23 04:19] MED LIST changes: +RXC30 PO; +VST25HP PO
[2016-11-23 04:28] VITALS: BP 112/70; TEMP 36.8; O2SAT 100; Ht 167.6 cm; Wt 77.0 kg
[2016-11-23 04:33] VITALS: PULSE 88
[2016-11-23] MEDS ORDERED: ALBUT/IPRATROP 3MG/0.5MG NEB 3 ML VIAL INH ONE (05:00)
--- NOTE | 2016-11-23 05:20 | EMERGENCY ROOM VISIT NOTE ---
ED Visit Note First contact with patient: 04:29 Patient seen for the second emergency department visit this evening. Patient was evaluated by myself and physician clinical data assistant. I agree with his workup of repeating a troponin and EKG which both show no evidence of ischemia. Reexamination of this patient he is concerned about insomnia as well as his pain. We've discussed the evaluation with him and his at bedside. Patient has essentially been ruled out for cardiac as he's had 3 negative troponins over the course of 6 hours this evening. Problem List Medical Problems: (1) Anemia Status: Chronic (2) ANXIETY STATE NOS Status: Chronic (3) Asthma Status: Chronic (4) ATTN DEFIC NONHYPERACT Status: Chronic (5) BENIGN HYPERTENSION Status: Chronic (6) BIPOLAR DISORDER, UNSPECIFIED Status: Chronic (7) Chronic back pain Status: Chronic (8) Chronic low back pain Status: Chronic (9) Chronic lumbar pain Status: Chronic (10) Chronic pain syndrome Status: Chronic (11) CHRONIC PEPTIC ULCER NOS Status: Chronic (12) DEPRESSIVE DISORDER NEC Status: Chronic (13) DIVERTICULOSIS COLON (W/O MENT OF HEMORRHAGE) Status: Chronic (14) ESOPHAGEAL REFLUX Status: Chronic (15) IDIOPATHIC TRANSVERSE MYELITIS Status: Chronic (16) Low testosterone Status: Chronic (17) MIGRAINE UNSPECIFIED W/O INTRACT MGRN W/O STATUS MIGRAINOSUS Status: Chronic (18) Neuropathy Status: Chronic (19) Tobacco abuse Status: Chronic (20) Transverse myelitis Status: Chronic (21) Urinary retention Status: Chronic Surgical Problems: (1) S/P decompression of ulnar nerve at elbow Status: Resolved Current/Historical Medications Scheduled Aspirin (Aspirin Ec), 81 MG PO DAILY Bupropion (Wellbutrin Sr), 200 MG PO BID Buspirone HCl (Buspirone HCl), 15 MG PO TID Clindamycin Hcl (Cleocin), 150 MG PO BID Duloxetine HCl (Duloxetine HCl), 60 MG PO DAILY Gabapentin (Gabapentin), 800 MG PO QID Pantoprazole (Pantoprazole Sodium), 40 MG PO DAILY Quetiapine Fumarate (Seroquel), 200 MG PO HS Sucralfate (Carafate), 1 GM PO ACHS Testosterone Cypionate (Testosterone Cypionate), 100 MG INJ 2XWK Tolterodine Tartrate (Detrol LA), 2 MG PO BID Scheduled PRN Acetamin/Butalbital/Caffeine (Fioricet), 1-2 TABS PO BID PRN for Headache Diphenoxylate/Atropine (Lomotil), 1 TAB PO UD PRN for Diarrhea Hydroxyzine HCl (Hydroxyzine Pamoate), 25 MG PO Q8 PRN for Anxiety Oxycodone HCl (Oxycodone HCl), 30 MG PO QID PRN for Pain Rizatriptan Benzoate (Rizatriptan Benzoate), 10 MG PO UD PRN for Headache Tadalafil (Cialis), 5 MG PO UD PRN for erectile dysfunction Allergies Coded Allergies: Ciprofloxacin (Verified Allergy, Intermediate, RASH, 11/23/16) rash / urticaria proximal to IV site after infusion 04/07/15 Penicillins (Verified Allergy, Intermediate, RASH, 11/23/16) Vital Signs Date Time Temp Pulse Resp B/P Pulse Ox O2 Delivery O2 Flow Rate FiO2 11/23/16 04:33 88 11/23/16 04:28 100 Room Air 11/23/16 04:28 36.8 86 16 112/70 100 Room Air 11/23/16 04:28 100 Room Air Laboratory Results Test 11/23/16 04:47 Bedside Troponin I 0.000 ng/ml (0-0.045) Medications Administered Medications (Trade) Dose Ordered Sig/Gurpreet Route Start Time Stop Time Status Last Admin Dose Admin Albuterol/ Ipratropium (Duoneb) 3 ml NOW ONCE INH 11/23/16 05:00 11/23/16 05:01 DC 11/23/16 04:51 3 ML Departure Information Referrals Darren Flores M.D. (PCP) Patient Instructions My [facility]
--- NOTE | 2016-11-23 07:55 | EMERGENCY ROOM VISIT NOTE ---
History First contact with patient: 04:29 Chief Complaint: CARDIAC ASSESSMENT Stated Complaint: CHEST PAIN/SHORT OF BREATH Nursing Triage Summary: Patient arrived via ALS. EMS reports patient was discharged from the hospital ~90 minute prior to ems being called. Patient went home and ate, and developed 10/10 chest pain and sob. Patient reports increased pain on palpation and pain going into his right neck. History of Present Illness The patient is a 56 year old male who presents to the Emergency Room with complaints of chest pain and shortness of breath. The patient was seen and evaluated by myself at this facility approximately 2 hours ago for this identical complaint. The patient was feeling well at the time of discharge, but states that when he got home, he ate food, and developed 10/10 chest pain and shortness of breath. He does not have abdominal pain. The patient indicates his pain is identical to the pain he was experiencing a few hours ago. His pain from before was not relieved with aspirin or nitroglycerin. He was given IV Toradol at the last visit as well as 1 mg IV Ativan. The patient was very sedated following these interventions and ultimately felt much better. Patient has not had injury or fall. He is requesting pain medication and something to help him sleep. Review of Systems More than 10 systems were reviewed and otherwise negative with the exception of history of present illness. Past Medical/Surgical History Medical Problems: (1) Altered mental status (2) Anemia (3) ANXIETY STATE NOS (4) Asthma (5) ATTN DEFIC NONHYPERACT (6) BENIGN HYPERTENSION (7) BIPOLAR DISORDER, UNSPECIFIED (8) Chronic back pain (9) Chronic low back pain (10) Chronic lumbar pain (11) Chronic pain syndrome (12) CHRONIC PEPTIC ULCER NOS (13) DEPRESSIVE DISORDER NEC (14) DIVERTICULOSIS COLON (W/O MENT OF HEMORRHAGE) (15) Elevated CPK (16) ESOPHAGEAL REFLUX (17) IDIOPATHIC TRANSVERSE MYELITIS (18) Low testosterone (19) MIGRAINE UNSPECIFIED W/O INTRACT MGRN W/O STATUS MIGRAINOSUS (20) Neuropathy (21) Tobacco abuse (22) Transverse myelitis (23) Urinary retention Surgical Problems: (1) S/P decompression of ulnar nerve at elbow Family History Anxiety disorder MOTHER Cancer Diabetes mellitus MOTHER FH: CAD (coronary artery disease) FATHER BROTHER FH: CHF (congestive heart failure) FATHER FH: HTN (hypertension) FH: dementia FATHER FH: diabetes mellitus FH: kidney failure Heart disease Hypertension MOTHER Kidney disease SISTER Social History Smoking Status: Former Smoker Alcohol Use: none Drug Use: none Marital Status: Housing Status: lives with significant other Occupation Status: disabled Current/Historical Medications Scheduled Aspirin (Aspirin Ec), 81 MG PO DAILY Bupropion (Wellbutrin Sr), 200 MG PO BID Buspirone HCl (Buspirone HCl), 15 MG PO TID Clindamycin Hcl (Cleocin), 150 MG PO BID Duloxetine HCl (Duloxetine HCl), 60 MG PO DAILY Gabapentin (Gabapentin), 800 MG PO QID Pantoprazole (Pantoprazole Sodium), 40 MG PO DAILY Quetiapine Fumarate (Seroquel), 200 MG PO HS Sucralfate (Carafate), 1 GM PO ACHS Testosterone Cypionate (Testosterone Cypionate), 100 MG INJ 2XWK Tolterodine Tartrate (Detrol LA), 2 MG PO BID Scheduled PRN Acetamin/Butalbital/Caffeine (Fioricet), 1-2 TABS PO BID PRN for Headache Diphenoxylate/Atropine (Lomotil), 1 TAB PO UD PRN for Diarrhea Hydroxyzine HCl (Hydroxyzine Pamoate), 25 MG PO Q8 PRN for Anxiety Oxycodone HCl (Oxycodone HCl), 30 MG PO QID PRN for Pain Rizatriptan Benzoate (Rizatriptan Benzoate), 10 MG PO UD PRN for Headache Tadalafil (Cialis), 5 MG PO UD PRN for erectile dysfunction Allergies Coded Allergies: Ciprofloxacin (Verified Allergy, Intermediate, RASH, 11/23/16) rash / urticaria proximal to IV site after infusion 04/07/15 Penicillins (Verified Allergy, Intermediate, RASH, 11/23/16) Physical Exam Vital Signs Date Time Temp Pulse Resp B/P Pulse Ox O2 Delivery O2 Flow Rate FiO2 11/23/16 04:33 88 11/23/16 04:28 100 Room Air 11/23/16 04:28 36.8 86 16 112/70 100 Room Air 11/23/16 04:28 100 Room Air Pain Rating (0-10): 0 Physical Exam VITALS: Vitals are noted on the nurse's note and reviewed by myself. Vital signs stable. GENERAL: Well-developed, well-nourished, white male, who is in no acute distress and resting comfortably. Patient is cooperative with the examination. HEAD: Normocephalic atraumatic. HEART: Regular rate and rhythm without murmurs gallops or rubs. LUNGS: Clear to auscultation bilaterally without wheezes, rales or rhonchi. No retractions or accessory muscle use. ABDOMEN: Positive normal bowel sounds x 4. Soft, nontender, without masses or organomegaly. No guarding or rebound tenderness. MUSCULOSKELETAL: No muscle atrophy, erythema, or edema noted. Full range of motion without joint tenderness in all extremities. Medical Decision & Procedures Laboratory Results Test 11/23/16 04:47 Bedside Troponin I 0.000 ng/ml (0-0.045) Medications Administered Medications (Trade) Dose Ordered Sig/Gurpreet Route Start Time Stop Time Status Last Admin Dose Admin Albuterol/ Ipratropium (Duoneb) 3 ml NOW ONCE INH 11/23/16 05:00 11/23/16 05:01 DC 11/23/16 04:51 3 ML ED Course Physical exam and history were performed. Nursing notes and EMR were reviewed. Patient appears to have persistent chest pain and shortness of breath over the course of the past several hours. The patient was just discharged from this facility and now arrives again via ambulance. EKG was performed and was normal sinus rhythm at 86 beats per minute without ischemia or ectopy. EKG is unchanged from several hours ago. The case was discussed with my attending physician, Dr. Kamara, who remained closely involved in patient care and decision making. I had a very lengthy discussion with the patient regarding his return visit. He has had 2 negative troponins as well as a normal CT angiogram of his chest within the last several hours. The patient is very concerned about pain control and difficulty sleeping. At his last visit the patient was able to sleep comfortably here in the ER for several hours. He did receive IV Toradol at that visit, and it is too early to provide him an additional dose of Toradol. Review of the PDMP shows the patient is on 30 mg OxyIR four times daily. He has filled prescriptions for #185 30 mg oxycodone tablets in the past 29 days. He has been on chronic narcotics for years, and there has been concern in the past for medication abuse/misuse from providers at this facility. Because of this Dr Kamara and I do not feel comfortable providing the patient additional pain medication. The patient did consent to straight lab draw and a troponin was gathered. The troponin was 0, and this is the patient's third negative troponin over the course of 6 hours. The patient was also provided a DuoNeb here in the department, which did not significantly improve his symptoms. At this point the patient has had 2 negative EKGs, 3 negative troponins, and a normal CT angiogram of his chest. He does not appear to have an acute life- threatening process. Dr. Kamara and I spent a significant amount of time educating the patient regarding his symptoms and findings over the past 6 hours. The patient will be discharged home to follow up with his primary care physician. The patient was very dissatisfied with this decision and lack of pain medication. He began to express his displeasure in a very profane and inappropriate manner. The patient was very upset that we were not treating his pain, and felt that we were not doing anything for him. The patient began to act in an escalating fashion, and tore off his monitor leads as well as his blood pressure cuff. He dressed himself and left the emergency department prior to formal discharge. Overall I have considerable concern for the patient's visits today. I feel that he is exhibiting drug-seeking behavior. He is currently on a 2 shot treatment plan at this facility, and I feel this should be escalated to a no narcotic plan. The chart was completed utilizing [employer] Speech Voice Recognition Software. Grammatical errors, random word insertions, pronoun errors, and incomplete sentences are an occasional consequence of this system due to software limitations, ambient noise, and hardware issues. Any formal questions or concerns about the content, text, or information contained within the body of this dictation should be directly addressed to the provider for clarification. . Medical Decision Differential diagnosis includes, but is not limited to: Myocardial infarction, dysrhythmia, pericarditis, pneumothorax, aortic aneurysm/dissection, DVT/PE, anxiety, GERD, PUD, electrolyte imbalance, thyroid disorder, pneumonia, bronchitis, pancreatitis, and others [place] Drug Monitoring Program Search Results: patient reviewed within database Impression Primary Impression: Central chest pain Additional Impression: Drug-seeking behavior Departure Information Dispostion Home / Self-Care Condition GOOD Forms IMPORTANT VISIT INFORMATION Patient Instructions [facility] Additional Instructions You were seen and evaluated today on an emergency basis only. This is not a substitute for, or an effort to provide, complete comprehensive medical care. It is not possible to recognize and treat all injuries or illnesses in a single emergency department visit. For this reason it is recommended that you followup with your primary care physician in the next 1-2 days for recheck of your condition. You have had 3 normal troponins and 2 normal EKG's (heart tests) over 6 hours. The emergency department is not able to treat your pain. You have significant pain medication at home that you should be taking as prescribed. You are welcome to return to the emergency department anytime with new, worsening, or concerning symptoms. Problem Qualifiers
[2016-11-24] MEDS ORDERED: CYCL10TA6 PO (22:37)
[2016-12-12] MEDS ORDERED: NICO14DI9 TD (08:59)
[2016-12-12] MEDS ORDERED: DXY100 PO (08:59)
[2017-04-07] MEDS ORDERED: AZIT-57 PO (15:31)
[2017-04-07] MEDS ORDERED: PRED20TA2 PO ×2 (15:31→15:40)
== END 2016-11-23 05:24 | disposition home or self-care (01) ==
LOC: EDBD 04:19 → C.EDB 04:20
DX: R07.9 Chest pain, unspecified (principal); Z76.5 Malingerer [conscious simulation]; F41.9 Anxiety disorder, unspecified; J45.909 Unspecified asthma, uncomplicated; I10 Essential (primary) hypertension; F98.8 Other specified behavioral and emotional disorders with onset usually occurring in childhood and adolescence; F31.9 Bipolar disorder, unspecified; M54.9 Dorsalgia, unspecified; G89.4 Chronic pain syndrome; K27.7 Chronic peptic ulcer, site unspecified, without hemorrhage or perforation; F32.9 Major depressive disorder, single episode, unspecified; K57.90 Diverticulosis of intestine, part unspecified, without perforation or abscess without bleeding; K21.9 Gastro-esophageal reflux disease without esophagitis; G37.3 Acute transverse myelitis in demyelinating disease of central nervous system; G62.9 Polyneuropathy, unspecified; G43.909 Migraine, unspecified, not intractable, without status migrainosus; Z80.9 Family history of malignant neoplasm, unspecified; Z83.3 Family history of diabetes mellitus; Z82.49 Family history of ischemic heart disease and other diseases of the circulatory system; Z84.1 Family history of disorders of kidney and ureter; Z87.891 Personal history of nicotine dependence; Z79.82 Long term (current) use of aspirin; Z79.899 Other long term (current) drug therapy

== ENCOUNTER 2016-11-23 12:57 | Emergency (ER) | payer BC ==
[~2016-11-23] VITALS: Ht 167.6 cm; Wt 75.0 kg
[2016-11-23 13:00] VITALS: TEMP 36.6; Ht 167.6 cm; Wt 75.0 kg
[2016-11-23] MEDS ORDERED: ALBUT/IPRATROP 3MG/0.5MG NEB 3 ML VIAL INH STA (13:55)
[2016-11-23] MEDS ORDERED: KETOROLAC TROMETHAMINE 30 MG/ML VIAL IV STA (13:55)
[2016-11-23 14:09] LABS: BASO % 0.4 %; BASO ABS # 0.05 K/uL (0-0.2); COMPLETE YES; HEMATOCRIT 33.5 % (42-52); IG% 0.3 %; LYMPH % 16.2 %; LYMPH ABS # 1.92 K/uL (1.2-3.4); MEAN CELL VOLUME 85.7 fL (80-100); MEAN CORPUSCULAR HEMOGLOBIN 28.1 pg (25-34); MEAN CORPUSCULAR HGB CONC 32.8 g/dl (32-36); MEAN PLATELET VOLUME 11.1 fL (7.4-10.4); MONO % 6.7 %; NEUT % 75.4 %; PLATELET COUNT 250 K/uL (130-400); RED BLOOD COUNT 3.91 M/uL (4.7-6.1); WHITE BLOOD COUNT 11.88 K/uL (4.8-10.8)
[2016-11-23 14:18] LABS: ALT/SGPT 26 U/L (12-78); BLOOD UREA NITROGEN 12 mg/dl (7-18); CARBON DIOXIDE 22 mmol/L (21-32); CHLORIDE 108 mmol/L (98-107); GLUCOSE 100 mg/dl (70-99); POTASSIUM 3.3 mmol/L (3.5-5.1); SODIUM 141 mmol/L (136-145)
[2016-11-23 14:20] LABS: CALCIUM 8.5 mg/dl (8.5-10.1)
[2016-11-23 14:23] LABS: ALB/GLOB RATIO 1.4 (0.9-2); ALKALINE PHOSPHATASE 76 U/L (45-117); AST/SGOT 22 U/L (15-37); CKMB/CK RATIO 1.4 (0-3.0)
--- NOTE | 2016-11-23 15:05 | EMERGENCY ROOM VISIT NOTE ---
ED Visit Note First contact with patient: 13:23 I have personally seen and evaluated the patient with the physician resident assistant. I agree with the diagnostic/management decisions and have personally been involved in these decisions and agree with the diagnosis.
--- NOTE | 2016-11-23 16:28 | EMERGENCY ROOM VISIT NOTE ---
History First contact with patient: 13:23 Chief Complaint: SHORTNESS OF BREATH Stated Complaint: CHEST PAIN History of Present Illness The patient is a 56 year old male who presents to the Emergency Room with complaints of persistent chest pain and shortness of breath. The patient reports he has a pain across his chest and under the left breast. He states that he does not feel like he is taking a full inspiration. The pain started last night around 11 PM. He was seen here twice for the pain. He reports that he has not received any relief from previous treatments. He reports a dull ache in his left shoulder. He denies any cardiac history. The patient states he has taken his oxycodone at home without relief. He denies any fevers/chills or cough. Review of Systems A complete 10-point Review of Systems was discussed with the patient, with pertinent positives and negatives listed in the History of Present Illness. All remaining Review of Systems questions can be considered negative unless otherwise specified. Past Medical/Surgical History Medical Problems: (1) Altered mental status (2) Anemia (3) ANXIETY STATE NOS (4) Asthma (5) ATTN DEFIC NONHYPERACT (6) BENIGN HYPERTENSION (7) BIPOLAR DISORDER, UNSPECIFIED (8) Chronic back pain (9) Chronic low back pain (10) Chronic lumbar pain (11) Chronic pain syndrome (12) CHRONIC PEPTIC ULCER NOS (13) DEPRESSIVE DISORDER NEC (14) DIVERTICULOSIS COLON (W/O MENT OF HEMORRHAGE) (15) Elevated CPK (16) ESOPHAGEAL REFLUX (17) IDIOPATHIC TRANSVERSE MYELITIS (18) Low testosterone (19) MIGRAINE UNSPECIFIED W/O INTRACT MGRN W/O STATUS MIGRAINOSUS (20) Neuropathy (21) Tobacco abuse (22) Transverse myelitis (23) Urinary retention Surgical Problems: (1) S/P decompression of ulnar nerve at elbow Family History Anxiety disorder MOTHER Cancer Diabetes mellitus MOTHER FH: CAD (coronary artery disease) FATHER BROTHER FH: CHF (congestive heart failure) FATHER FH: HTN (hypertension) FH: dementia FATHER FH: diabetes mellitus FH: kidney failure Heart disease Hypertension MOTHER Kidney disease SISTER Social History Smoking Status: Current Every Day Smoker Alcohol Use: none Drug Use: none Marital Status: Housing Status: lives with significant other Occupation Status: disabled Current/Historical Medications Scheduled Aspirin (Aspirin Ec), 81 MG PO DAILY Bupropion (Wellbutrin Sr), 200 MG PO BID Buspirone HCl (Buspirone HCl), 15 MG PO TID Duloxetine HCl (Duloxetine HCl), 60 MG PO DAILY Gabapentin (Gabapentin), 800 MG PO QID Pantoprazole (Pantoprazole Sodium), 40 MG PO BID Sucralfate (Carafate), 1 GM PO ACHS Testosterone Cypionate (Testosterone Cypionate), 100 MG INJ 2XWK Tolterodine Tartrate (Detrol LA), 2 MG PO BID Scheduled PRN Acetamin/Butalbital/Caffeine (Fioricet), 1-2 TABS PO BID PRN for Headache Diphenoxylate/Atropine (Lomotil), 1 TAB PO UD PRN for Diarrhea Hydroxyzine HCl (Hydroxyzine Pamoate), 25 MG PO Q8 PRN for Anxiety Oxycodone HCl (Oxycodone HCl), 30 MG PO QID PRN for Pain Rizatriptan Benzoate (Rizatriptan Benzoate), 10 MG PO UD PRN for Headache Tadalafil (Cialis), 5 MG PO UD PRN for erectile dysfunction Allergies Coded Allergies: Ciprofloxacin (Verified Allergy, Intermediate, RASH, 11/23/16) rash / urticaria proximal to IV site after infusion 04/07/15 Penicillins (Verified Allergy, Intermediate, RASH, 11/23/16) Physical Exam Vital Signs Date Time Temp Pulse Resp B/P Pulse Ox O2 Delivery O2 Flow Rate FiO2 11/23/16 17:04 87 16 109/68 96 11/23/16 15:16 88 16 117/66 97 Room Air 11/23/16 14:52 90 20 116/64 95 Room Air 11/23/16 14:08 95 Room Air 11/23/16 13:00 36.6 99 18 111/65 98 Room Air Physical Exam VITALS: Vitals are noted on the nurse's note and reviewed by myself. Vital signs stable. GENERAL: This is a 56-year-old male, in no acute distress, nondiaphoretic, well- developed well-nourished. SKIN: Capillary reflex less than 2 seconds. HEENT: Normocephalic. PERRLA. EOMI. Nares patent. Mucous membranes moist. Neck is supple without nuchal rigidity. HEART: Regular rate and rhythm without murmurs gallops or rubs. LUNGS: Clear to auscultation bilaterally without wheezes, rales or rhonchi. No retractions or accessory muscle use. ABDOMEN: Positive bowel sounds x 4. Soft, nontender to palpation. MUSCULOSKELETAL: Reproducible tenderness to palpation just under the left breast. NEURO: Patient was alert and oriented to person place and time. Medical Decision & Procedures Laboratory Results 11/23/16 13:10 Red Blood Count 3.91, Mean Corpuscular Volume 85.7, Mean Corpuscular Hemoglobin 28.1, Mean Corpuscular Hemoglobin Concent 32.8, Mean Platelet Volume 11.1, Neutrophils (%) (Auto) 75.4, Lymphocytes (%) (Auto) 16.2, Monocytes (%) (Auto) 6.7, Eosinophils (%) (Auto) 1.0, Basophils (%) (Auto) 0.4, Neutrophils # (Auto) 8.96, Lymphocytes # (Auto) 1.92, Monocytes # (Auto) 0.80, Eosinophils # (Auto) 0.12, Basophils # (Auto) 0.05 11/23/16 13:10 Test 11/23/16 13:10 White Blood Count 11.88 K/uL (4.8-10.8) Red Blood Count 3.91 M/uL (4.7-6.1) Hemoglobin 11.0 g/dL (14.0-18.0) Hematocrit 33.5 % (42-52) Mean Corpuscular Volume 85.7 fL (80-100) Mean Corpuscular Hemoglobin 28.1 pg (25-34) Mean Corpuscular Hemoglobin Concent 32.8 g/dl (32-36) Platelet Count 250 K/uL (130-400) Mean Platelet Volume 11.1 fL (7.4-10.4) Neutrophils (%) (Auto) 75.4 % Lymphocytes (%) (Auto) 16.2 % Monocytes (%) (Auto) 6.7 % Eosinophils (%) (Auto) 1.0 % Basophils (%) (Auto) 0.4 % Neutrophils # (Auto) 8.96 K/uL (1.4-6.5) Lymphocytes # (Auto) 1.92 K/uL (1.2-3.4) Monocytes # (Auto) 0.80 K/uL (0.11-0.59) Eosinophils # (Auto) 0.12 K/uL (0-0.5) Basophils # (Auto) 0.05 K/uL (0-0.2) RDW Standard Deviation 51.1 fL (36.4-46.3) RDW Coefficient of Variation 16.1 % (11.5-14.5) Immature Granulocyte % (Auto) 0.3 % Immature Granulocyte # (Auto) 0.03 K/uL (0.00-0.02) Anion Gap 11.0 mmol/L (3-11) Est Creatinine Clear Calc Drug Dose 69.2 ml/min Estimated GFR () 87.7 Estimated GFR (Non- 75.7 BUN/Creatinine Ratio 11.0 (10-20) Calcium Level 8.5 mg/dl (8.5-10.1) Total Bilirubin 0.2 mg/dl (0.2-1) Aspartate Amino Transf (AST/SGOT) 22 U/L (15-37) Alanine Aminotransferase (ALT/SGPT) 26 U/L (12-78) Alkaline Phosphatase 76 U/L (45-117) Total Creatine Kinase 552 U/L (39-308) Creatine Kinase MB 7.8 ng/ml (0.5-3.6) Creatine Kinase MB Ratio 1.4 (0-3.0) Troponin I < 0.015 ng/ml (0-0.045) Total Protein 6.4 gm/dl (6.4-8.2) Albumin 3.7 gm/dl (3.4-5.0) Globulin 2.7 gm/dl (2.5-4.0) Albumin/Globulin Ratio 1.4 (0.9-2) Medications Administered Medications (Trade) Dose Ordered Sig/Gurpreet Route Start Time Stop Time Status Last Admin Dose Admin Albuterol/ Ipratropium (Duoneb) 3 ml NOW STAT INH 11/23/16 13:55 11/23/16 13:57 DC 11/23/16 14:15 3 ML Ketorolac Tromethamine (Toradol Inj) 30 mg NOW STAT IV 11/23/16 13:55 11/23/16 13:57 DC 11/23/16 14:16 30 MG Albuterol (Ventolin Hfa Inhaler) 2 puffs NOW ONCE INH 11/23/16 16:30 11/23/16 16:31 DC 11/23/16 16:57 2 PUFFS ECG Rate (beats per minute): 89 Rhythm: normal sinus Findings: RBBB (incomplete) Change: no significant change ED Course The patient was evaluated as above. Labs were drawn and IV access was obtained. Patient was medicated with 30 g Toradol IV and a DuoNeb treatment. Chest x-ray was performed and read by radiology as above. Patient was reevaluated and was asleep. I woke up the patient and he stated that he felt better. Findings were discussed with the patient. Patient's case was discussed with Dr. Flores's office. They will see him in follow-up this coming Monday. Discharge instructions were reviewed with the patient. The patient verbalized understanding of my assessment and treatment plan and was discharged home in good condition. Medical Decision Differential diagnosis includes acute coronary syndrome, pulmonary embolism, pneumothorax, pericarditis, myocarditis, endocarditis, anxiety, musculoskeletal pain, GERD, costochondritis, pneumonia, among others. The patient is a 56-year-old male who presents today complaining of chest pain or shortness of breath. Labs revealed and mild leukocytosis. There is a mild anemia which appears to be chronic for the patient. Troponin was not elevated. EKG was unchanged from previous. Previous records were reviewed. The patient was seen here twice overnight for the same symptoms. At this point, he has had 4 negative troponins, 3 negative EKGs and a negative CT angiogram of the chest. His vital signs are completely within normal limits and he is in no distress on examination. The patient stated that he felt better after Toradol. His chest pain was reproducible and I do not feel that it is cardiac in nature. Additionally, the patient did request morphine and was told that this is a respiratory depressant and will certainly not helping his shortness of breath. I did speak with the office of the patient's primary care provider and informed them of the extensive workup this patient has had. They agreed that the patient is stable for outpatient follow-up and scheduled him an appointment this coming Monday. I had a lengthy discussion with patient regarding his negative testing and my reasoning for his treatment today. He was concerned about what he should do if his symptoms returned and I instructed him to continue ibuprofen at home, as the Toradol gave him relief in the emergency department. The patient was independently evaluated by Dr. Sparrow, ED attending physician, who agreed with my assessment and treatment plan. Based on the patient's presentation and work up, I feel the patient is stable for outpatient treatment. The patient was educated to the emergency department for any worsening of their current condition or new/concerning symptoms. He will follow up with Dr. Flores. Impression Primary Impression: Left-sided chest wall pain Departure Information Dispostion Home / Self-Care Condition GOOD Referrals Darren Flores M.D. (PCP) Patient Instructions My [facility] Additional Instructions Continue the ibuprofen on a regular basis. Continue your own pain medication at home. Follow-up with Dr. Flores on Monday at 2:45 pm. Return for worsening pain or any other new/concerning symptoms.
[2016-11-23] MEDS ORDERED: ALBUTEROL HFA 8 GM INHALER INH ONE (16:30)
[2016-11-23 17:04] VITALS: BP 109/68; PULSE 87; O2SAT 96
[2016-11-24] MEDS ORDERED: CYCL10TA6 PO (22:37)
[2016-12-12] MEDS ORDERED: NICO14DI9 TD (08:59)
[2016-12-12] MEDS ORDERED: DXY100 PO (08:59)
[2017-04-07] MEDS ORDERED: AZIT-57 PO (15:31)
[2017-04-07] MEDS ORDERED: PRED20TA2 PO ×2 (15:31→15:40)
== END 2016-11-23 17:05 | disposition home or self-care (01) ==
LOC: C.EDB 12:59 → C.EDC 17:05
DX: R07.89 Other chest pain (principal); F41.9 Anxiety disorder, unspecified; J45.909 Unspecified asthma, uncomplicated; I10 Essential (primary) hypertension; F98.8 Other specified behavioral and emotional disorders with onset usually occurring in childhood and adolescence; F31.9 Bipolar disorder, unspecified; M54.5 Low back pain; G89.4 Chronic pain syndrome; K27.7 Chronic peptic ulcer, site unspecified, without hemorrhage or perforation; F32.9 Major depressive disorder, single episode, unspecified; K57.30 Diverticulosis of large intestine without perforation or abscess without bleeding; K21.9 Gastro-esophageal reflux disease without esophagitis; G37.3 Acute transverse myelitis in demyelinating disease of central nervous system; G43.909 Migraine, unspecified, not intractable, without status migrainosus; G62.9 Polyneuropathy, unspecified; Z80.9 Family history of malignant neoplasm, unspecified; Z83.3 Family history of diabetes mellitus; Z82.49 Family history of ischemic heart disease and other diseases of the circulatory system; Z84.1 Family history of disorders of kidney and ureter; F17.210 Nicotine dependence, cigarettes, uncomplicated; Z79.82 Long term (current) use of aspirin; Z79.899 Other long term (current) drug therapy

== ENCOUNTER 2016-11-25 23:25 | Emergency (ER) | payer BC ==
[~2016-11-25] VITALS: Ht 167.6 cm; Wt 75.5 kg
[~2016-11-25 23:25] MED LIST changes: -AMPH20TA2 PO; -CLIN150C PO; +CYCL10TA6 PO; -QUET1TAB10 PO
[2016-11-25 23:42] VITALS: BP 99/62; PULSE 79; TEMP 36.7; O2SAT 98; Ht 167.6 cm; Wt 75.5 kg
--- NOTE | 2016-11-26 00:56 | EMERGENCY ROOM VISIT NOTE ---
ED Visit Note First contact with patient: 00:21 Patient not seen by me as he had left the facility prior to my evaluation. Patient has been evaluated by myself and the physician assistant chief nursing officer over the past 2 nights. I've discussed the workup with the physician assistant chief nursing officer and agree with his assessment of the patient and current treatment
--- NOTE | 2016-11-26 02:28 | EMERGENCY ROOM VISIT NOTE ---
History First contact with patient: 00:21 Chief Complaint: RIB PAIN Stated Complaint: SHORTNESS OF BREATH, BRUISED RIBS History of Present Illness The patient is a 56 year old male who presents to the Emergency Room with complaints of persistent left-sided chest/rib pain for the past 4 or 5 days. The patient has been seen and evaluated several times this week with this complaint, and he states his pain is exactly as it has been on each of those visits. He rates the pain a 10/10 that worsens with deep inspiration. He has not had fever or chills. No nausea, vomiting, or abdominal pain. The patient has had several negative sets of cardiac enzymes as well as a negative CT angiogram of his chest this week. He has also followed with his primary care physician, who started him on steroids. The patient takes chronic narcotics for pain, and is prescribed 30 mg oxycodone 4 times daily. The patient states that he has had falls this week. He states that his last fall was "I don't know...one...maybe two or three days ago". The patient is accompanied by his who is acting as the shag truck driver. Review of Systems More than 10 systems were reviewed and otherwise negative with the exception of history of present illness. Past Medical/Surgical History Medical Problems: (1) Altered mental status (2) Anemia (3) ANXIETY STATE NOS (4) Asthma (5) ATTN DEFIC NONHYPERACT (6) BENIGN HYPERTENSION (7) BIPOLAR DISORDER, UNSPECIFIED (8) Chronic back pain (9) Chronic low back pain (10) Chronic lumbar pain (11) Chronic pain syndrome (12) CHRONIC PEPTIC ULCER NOS (13) DEPRESSIVE DISORDER NEC (14) DIVERTICULOSIS COLON (W/O MENT OF HEMORRHAGE) (15) Elevated CPK (16) ESOPHAGEAL REFLUX (17) IDIOPATHIC TRANSVERSE MYELITIS (18) Low testosterone (19) MIGRAINE UNSPECIFIED W/O INTRACT MGRN W/O STATUS MIGRAINOSUS (20) Neuropathy (21) Tobacco abuse (22) Transverse myelitis (23) Urinary retention Surgical Problems: (1) S/P decompression of ulnar nerve at elbow Family History Anxiety disorder MOTHER Cancer Diabetes mellitus MOTHER FH: CAD (coronary artery disease) FATHER BROTHER FH: CHF (congestive heart failure) FATHER FH: HTN (hypertension) FH: dementia FATHER FH: diabetes mellitus FH: kidney failure Heart disease Hypertension MOTHER Kidney disease SISTER Social History Smoking Status: Current Every Day Smoker Alcohol Use: none Drug Use: none Marital Status: Housing Status: lives with significant other Occupation Status: disabled Current/Historical Medications Scheduled Aspirin (Aspirin Ec), 81 MG PO DAILY Bupropion (Wellbutrin Sr), 200 MG PO BID Buspirone HCl (Buspirone HCl), 15 MG PO TID Duloxetine HCl (Duloxetine HCl), 60 MG PO DAILY Gabapentin (Gabapentin), 800 MG PO QID Pantoprazole (Pantoprazole Sodium), 40 MG PO BID Sucralfate (Carafate), 1 GM PO ACHS Testosterone Cypionate (Testosterone Cypionate), 100 MG INJ 2XWK Tolterodine Tartrate (Detrol LA), 2 MG PO BID Scheduled PRN Acetamin/Butalbital/Caffeine (Fioricet), 1-2 TABS PO BID PRN for Headache Cyclobenzaprine Hcl (Flexeril), 10 MG PO TID PRN for Muscle Spasms Diphenoxylate/Atropine (Lomotil), 1 TAB PO UD PRN for Diarrhea Hydroxyzine HCl (Hydroxyzine Pamoate), 25 MG PO Q8 PRN for Anxiety Oxycodone HCl (Oxycodone HCl), 30 MG PO QID PRN for Pain Rizatriptan Benzoate (Rizatriptan Benzoate), 10 MG PO UD PRN for Headache Tadalafil (Cialis), 5 MG PO UD PRN for erectile dysfunction Allergies Coded Allergies: Ciprofloxacin (Verified Allergy, Intermediate, RASH, 11/24/16) rash / urticaria proximal to IV site after infusion 04/07/15 Penicillins (Verified Allergy, Intermediate, RASH, 11/24/16) Physical Exam Vital Signs Date Time Temp Pulse Resp B/P Pulse Ox O2 Delivery O2 Flow Rate FiO2 11/25/16 23:42 36.7 79 20 99/62 98 Room Air Pain Rating (0-10): 0 Physical Exam VITALS: Vitals are noted on the nurse's note and reviewed by myself. Vital signs stable. GENERAL: White male who is in no acute distress and resting comfortably. Patient is cooperative with the examination. HEAD: Normocephalic atraumatic. EARS: External ear normal. External auditory canals clear, tympanic membranes pearly chandler without erythema or effusion bilaterally. EYES: Pupils equal round and reactive to light and accommodation. Conjunctivae without injection, sclerae without icterus. Extraocular movements intact. NOSE: Patent, turbinates without inflammation or discharge. MOUTH: Mucous membranes moist. Tonsils are not enlarged. Pharynx without erythema, blood, or exudate. Uvula midline. Airway patent. NECK: Supple without nuchal rigidity. No lymphadenopathy. No thyromegaly. Cervical spine is nontender. HEART: Regular rate and rhythm without murmurs gallops or rubs. LUNGS: Clear to auscultation bilaterally without wheezes, rales or rhonchi. No retractions or accessory muscle use. CHEST WALL: Mild left sided chest wall discomfort without rash or lesion. No obvious ecchymosis or bruising. No evidence of trauma. ABDOMEN: Positive normal bowel sounds x 4. Soft, nontender, without masses or organomegaly. No guarding or rebound tenderness. Medical Decision & Procedures ED Course Physical exam and history were performed. Nursing notes and EMR were reviewed. Patient appears to have ongoing left-sided chest wall pain for the past several days. This is the patient's fifth visit to the emergency department in 4 days with this complaint. I have seen him several times during this interval, and the patient admits that his pain today is no different from previous visits. He is unable to distinctly answer if he has a new fall, injury, or trauma. I discussed options of care at length with the patient. I did offer cardiac and pulmonary testing modalities to better rule out an acute life-threatening process. Throughout this conversation the patient was very fixated on receiving pain medication, specifically wanting narcotics and Toradol. I did explained to the patient that he would not be receiving narcotics at this facility, and that I was wary to give him Toradol as he has had several doses of this over the past few days. The patient was fixiated on this and would not further discuss his presenting complaint until he got pain medication. He further would deny any and all intervention to evaluate his symptoms until he was assured that he would be getting narcotics. I had a very martina conversation with the patient and his , and expressed my concern for opioid dependence, abuse, and drug seeking behavior. I offered health social work professor and mental health services to the patient. I feel the patient is abusing his medication at home, but he denies this. The patient does not feel that he is dependent on opiates despite being on them for greater than 12 years. He denies that he is drug seeking. The patient declines all interventions unless he will be offered opioids, which again I stated is not appropriate. The case was discussed with my attending physician, Dr. Kamara, who also has seen the patient several times this week independently and in conjunction with myself. After discussing the case feel the patient is stable for discharge to follow with his primary care physician and specialists. The patient and were thoroughly educated they are welcome to return to the ER with concerning symptoms. I did give verbal discharge instructions, however the patient eloped from the department prior to receiving written instructions. The chart was completed utilizing [employer] Speech Voice Recognition Software. Grammatical errors, random word insertions, pronoun errors, and incomplete sentences are an occasional consequence of this system due to software limitations, ambient noise, and hardware issues. Any formal questions or concerns about the content, text, or information contained within the body of this dictation should be directly addressed to the provider for clarification. . Medical Decision Differential diagnosis includes, but is not limited to: Drug seeking behavior, myocardial infarction, dysrhythmia, pericarditis, pneumothorax, aortic aneurysm/ dissection, DVT/PE, anxiety, GERD, PUD, electrolyte imbalance, thyroid disorder , pneumonia, bronchitis, pancreatitis, and others Impression Primary Impression: Drug-seeking behavior Additional Impression: Left-sided chest wall pain Departure Information Dispostion Home / Self-Care Condition GOOD Referrals Darren Flores M.D. (PCP) Forms HOME CARE DOCUMENTATION FORM, IMPORTANT VISIT INFORMATION Patient Instructions My [facility] Additional Instructions You were seen and evaluated today on an emergency basis only. This is not a substitute for, or an effort to provide, complete comprehensive medical care. It is not possible to recognize and treat all injuries or illnesses in a single emergency department visit. For this reason it is recommended that you followup with your primary care physician for ongoing care and evaluation. The emergency department is unable to provide treatment for ongoing and chronic pain. These services are provided through your specialists or your primary care physician. We have concern for your opioid dependence. We have offered you health social work professor , which you have declined. If you change your mind you are invited back to establish these in the future. You are welcome to return to the emergency department anytime with new, worsening, or concerning symptoms. Problem Qualifiers
[2016-12-12] MEDS ORDERED: NICO14DI9 TD (08:59)
[2016-12-12] MEDS ORDERED: DXY100 PO (08:59)
[2017-04-07] MEDS ORDERED: PRED20TA2 PO ×2 (15:31→15:40)
[2017-04-07] MEDS ORDERED: AZIT-57 PO (15:31)
== END 2016-11-26 00:56 | disposition home or self-care (01) ==
LOC: C.EDB 23:27 → C.EDA 11-26 00:56
DX: Z76.5 Malingerer [conscious simulation] (principal); R07.89 Other chest pain; Z91.81 History of falling; J45.909 Unspecified asthma, uncomplicated; I10 Essential (primary) hypertension; Z98.890 Other specified postprocedural states; F32.9 Major depressive disorder, single episode, unspecified; F41.9 Anxiety disorder, unspecified; K27.7 Chronic peptic ulcer, site unspecified, without hemorrhage or perforation; K21.9 Gastro-esophageal reflux disease without esophagitis; F17.200 Nicotine dependence, unspecified, uncomplicated; Z81.8 Family history of other mental and behavioral disorders; Z82.49 Family history of ischemic heart disease and other diseases of the circulatory system; Z83.3 Family history of diabetes mellitus; Z84.2 Family history of other diseases of the genitourinary system; Z79.82 Long term (current) use of aspirin; Z79.899 Other long term (current) drug therapy

== ENCOUNTER 2016-12-09 07:37 | Inpatient (IN) | payer BC, OTHER ==
[2016-12-09] VITALS (7 sets, daily range): BP systolic 100–123; BP diastolic 64–81; PULSE 70–90; TEMP 36.4–36.9; O2SAT 93–97; Ht 167.6 cm; Wt 72.7 kg
[~2016-12-09] VITALS: Ht 167.6 cm; Wt 72.7 kg
[~2016-12-09 07:37] MED LIST changes: -CYCL10TA6 PO
[2016-12-09] MEDS ORDERED: SODIUM CHLORIDE 0.9% 1000ML 1,000 ML IV STA (07:58)
[2016-12-09] MEDS ORDERED: ACETAMINOPHEN 500 MG TAB PO STA (07:58)
[2016-12-09 08:39] LABS: BASO % 0.2 %; BASO ABS # 0.03 K/uL (0-0.2); COMPLETE YES; EOS % 0.4 %; HEMATOCRIT 30.2 % (42-52); IG% 0.3 %; LYMPH % 4.6 %; LYMPH ABS # 0.72 K/uL (1.2-3.4); MEAN CELL VOLUME 85.1 fL (80-100); MEAN CORPUSCULAR HEMOGLOBIN 28.2 pg (25-34); MEAN CORPUSCULAR HGB CONC 33.1 g/dl (32-36); MEAN PLATELET VOLUME 9.6 fL (7.4-10.4); MONO % 7.2 %; NEUT % 87.3 %; PLATELET COUNT 276 K/uL (130-400); RED BLOOD COUNT 3.55 M/uL (4.7-6.1)
[2016-12-09 08:47] LABS: PARTIAL THROMBOPLASTIN RATIO 1.4; PROTHROMBIN TIME (PATIENT) 10.7 SECONDS (9.0-12.0)
[2016-12-09 08:57] LABS: BLOOD UREA NITROGEN 13 mg/dl (7-18); BUN/CREATININE RATIO 14.6 (10-20); CARBON DIOXIDE 28 mmol/L (21-32); CHLORIDE 98 mmol/L (98-107); CREATININE 0.91 mg/dl (0.60-1.40); GLUCOSE 128 mg/dl (70-99); POTASSIUM 3.6 mmol/L (3.5-5.1); SODIUM 133 mmol/L (136-145)
[2016-12-09] MEDS ORDERED: IBUPROFEN 600 MG TAB PO STA (09:04)
--- NOTE | 2016-12-09 09:06 | DIAGNOSTIC IMAGING REPORT ---
CHEST 2 VIEWS ROUTINE CLINICAL HISTORY: couth, fever dyspnea COMPARISON STUDY: 11/22/2016 FINDINGS: Bibasilar parenchymal infiltrates versus atypical pulmonary edema. Pulmonary apices are clear. Diaphragms are smooth. IMPRESSION: Bilateral parenchymal infiltrates versus atypical pulmonary edema. Electronically signed by: Augustin Peres M.D. 12/09/2016 9:05 AM Dictated Date/Time: 12/09/2016 9:04 AM
[2016-12-09] MEDS ORDERED: AZTREONAM IV 2,000 MG in DEXTROSE 5% 100ML 100 ML IV SCH (09:15)
[2016-12-09 09:35] LABS: CALCIUM 8.9 mg/dl (8.5-10.1)
[2016-12-09] MEDS ORDERED: ONDANSETRON INJ 2 MG/ML 2 ML VIAL IV PRN (09:45)
[2016-12-09] MEDS ORDERED: ACETAMINOPHEN 325 MG TAB PO PRN (09:45)
--- NOTE | 2016-12-09 09:55 | History and Physical ---
History & Physical Date & Time of Service: December 09, 2016 at 09:55 Chief Complaint: Fever, Can't Breathe, Can't Stop Coughing Primary Care Physician: Darren Flores M.D. History of Present Illness Source: patient, family, clinic records, hospital records Patient seen and examined. 56 year old male with PMHx of transverse myelitis, multiple episodes of rhabdomyolysis, Anxiety, depression, urinary retention, and tobacco abuse presents to the ED complaining of fever since last night. Patient reports he has felt feverish, and has had a dry nonproductive cough. He reports associated mild SOB. He states his chest hurts when he coughs. He reports his throat feels "scratchy." Prior to last evening he reports he has been feeling at baseline. He states he has recently been smoking more than normal for no particular reason. He denies sick contacts and has not been taking anything for his symptoms. He denies chest pain, palpitations, nausea, vomiting, diarrhea, dysuria, calf pain and edema. In the ED patient is febrile and tachycardic. WBC count is 15K, lactate is normal. CXR shows bilateral infiltrates. He received aztreonam. He will be admitted for further workup and treatment. Past Medical/Surgical History Medical Problems: (1) Anemia Status: Chronic (2) ANXIETY STATE NOS Status: Chronic (3) Asthma Status: Chronic (4) BENIGN HYPERTENSION Status: Chronic (5) BIPOLAR DISORDER, UNSPECIFIED Status: Chronic (6) Chronic back pain Status: Chronic (7) Chronic low back pain Status: Chronic (8) CHRONIC PEPTIC ULCER NOS Status: Chronic (9) DEPRESSIVE DISORDER NEC Status: Chronic (10) DIVERTICULOSIS COLON (W/O MENT OF HEMORRHAGE) Status: Chronic (11) ESOPHAGEAL REFLUX Status: Chronic (12) IDIOPATHIC TRANSVERSE MYELITIS Status: Chronic (13) Low testosterone Status: Chronic (14) MIGRAINE UNSPECIFIED W/O INTRACT MGRN W/O STATUS MIGRAINOSUS Status: Chronic (15) Neuropathy Status: Chronic (16) Tobacco abuse Status: Chronic (17) Urinary retention Status: Chronic Surgical Problems: (1) S/P decompression of ulnar nerve at elbow Status: Resolved Family History Anxiety disorder MOTHER Cancer Diabetes mellitus MOTHER FH: CAD (coronary artery disease) FATHER BROTHER FH: CHF (congestive heart failure) FATHER FH: HTN (hypertension) FH: dementia FATHER FH: diabetes mellitus FH: kidney failure Heart disease Hypertension MOTHER Kidney disease SISTER Social History Smoking Status: Current Every Day Smoker Alcohol Use: none Drug Use: none Marital Status: Housing status: lives with family Occupational Status: disabled Immunizations History of Influenza Vaccine: No History of Tetanus Vaccine?: Yes History of Pneumococcal: No History of Hepatitis B Vaccine: No Multi-Drug Resistant Organisms History of MDRO: No Allergies Coded Allergies: Ciprofloxacin (Verified Allergy, Intermediate, RASH, 12/09/16) rash / urticaria proximal to IV site after infusion 04/07/15 Penicillins (Verified Allergy, Intermediate, RASH, 12/09/16) Home Medications Scheduled Aspirin (Aspirin Ec), 81 MG PO DAILY Bupropion (Wellbutrin Sr), 200 MG PO BID Buspirone HCl (Buspirone HCl), 15 MG PO TID Duloxetine HCl (Duloxetine HCl), 60 MG PO DAILY Gabapentin (Gabapentin), 800 MG PO QID Pantoprazole (Pantoprazole Sodium), 40 MG PO BID Sucralfate (Carafate), 1 GM PO ACHS Testosterone Cypionate (Testosterone Cypionate), 100 MG INJ 2XWK Tolterodine Tartrate (Detrol LA), 2 MG PO BID Scheduled PRN Acetamin/Butalbital/Caffeine (Fioricet), 1-2 TABS PO BID PRN for Headache Diphenoxylate/Atropine (Lomotil), 1 TAB PO UD PRN for Diarrhea Hydroxyzine HCl (Hydroxyzine Pamoate), 25 MG PO Q8 PRN for Anxiety Oxycodone HCl (Oxycodone HCl), 30 MG PO QID PRN for Pain Rizatriptan Benzoate (Rizatriptan Benzoate), 10 MG PO UD PRN for Headache Tadalafil (Cialis), 5 MG PO UD PRN for erectile dysfunction Review of Systems Constitutional: + chills, + fever Eyes: No worsening of vision ENT: + sore throat, No nasal symptoms Respiratory: + cough, + shortness of breath, No sputum Cardiovascular: No chest pain, No edema, No palpitations Abdomen: No GI bleeding, No constipation, No diarrhea, No nausea, No pain, No vomiting Musculoskeletal: No calf pain, No swelling Genitourinary - Male: No dysuria Neurologic: No numbness/tingling, No vertigo Psychiatric: No anxiety Endocrine: No fatigue Hematologic / Lymphatic: No abnormal bleeding/bruising, No clotting problems Integumentary: No itch, No rash Allergic / Immunologic: No environmental allergies Physical Exam Vital Signs Date Time Temp Pulse Resp B/P Pulse Ox O2 Delivery O2 Flow Rate FiO2 12/09/16 09:05 39.0 112 24 128/72 95 Room Air 12/09/16 07:57 116 12/09/16 07:52 94 Room Air 12/09/16 07:45 38.3 118 20 101/61 92 Room Air General Appearance: + pertinent finding (WD/WN 56 year old male nontoxic appearing, sitting in bed in NAD with at bedside ) Head: normocephalic, atraumatic Eyes: PERRL, EOMI, sclerae normal ENT: hearing grossly normal, pharynx normal Neck: supple, no JVD, trachea midline Respiratory/Chest: normal breath sounds, no respiratory distress, no accessory muscle use, + crackles (BL bases ), + pertinent finding (chest tender to palpation ) Cardiovascular: no edema, no gallop, no JVD, no murmur, normal peripheral pulses, + tachycardia (110s, regular ) Abdomen/GI: normal bowel sounds, non tender, soft Back: normal inspection, no muscle spasm Extremities/Musculoskelatal: no calf tenderness, normal capillary refill, no pedal edema Neurologic/Psych: alert, oriented x 3, + pertinent finding (nonfocal on gross exam ) Skin: normal color, warm/dry, no rash Lymphatic: no adenopathy Diagnostics Laboratory Results Results Past 24 Hours Test 12/09/16 08:10 12/09/16 08:25 12/09/16 08:34 Range/Units Influenza Type A Antigen Neg for Influ A NEG Influenza Type B Antigen Neg for Influ B NEG White Blood Count 15.70 4.8-10.8 K/uL Red Blood Count 3.55 4.7-6.1 M/uL Hemoglobin 10.0 14.0-18.0 g/dL Hematocrit 30.2 42-52 % Mean Corpuscular Volume 85.1 80-100 fL Mean Corpuscular Hemoglobin 28.2 25-34 pg Mean Corpuscular Hemoglobin Concent 33.1 32-36 g/dl Platelet Count 276 130-400 K/uL Mean Platelet Volume 9.6 7.4-10.4 fL Neutrophils (%) (Auto) 87.3 % Lymphocytes (%) (Auto) 4.6 % Monocytes (%) (Auto) 7.2 % Eosinophils (%) (Auto) 0.4 % Basophils (%) (Auto) 0.2 % Neutrophils # (Auto) 13.71 1.4-6.5 K/uL Lymphocytes # (Auto) 0.72 1.2-3.4 K/uL Monocytes # (Auto) 1.13 0.11-0.59 K/uL Eosinophils # (Auto) 0.07 0-0.5 K/uL Basophils # (Auto) 0.03 0-0.2 K/uL RDW Standard Deviation 49.8 36.4-46.3 fL RDW Coefficient of Variation 16.1 11.5-14.5 % Immature Granulocyte % (Auto) 0.3 % Immature Granulocyte # (Auto) 0.04 0.00-0.02 K/uL Prothrombin Time 10.7 9.0-12.0 SECONDS Prothromb Time International Ratio 1.0 0.9-1.1 Activated Partial Thromboplast Time 35.2 21.0-31.0 SECONDS Partial Thromboplastin Ratio 1.4 Sodium Level 133 136-145 mmol/L Potassium Level 3.6 3.5-5.1 mmol/L Chloride Level 98 98-107 mmol/L Carbon Dioxide Level 28 21-32 mmol/L Anion Gap 7.0 3-11 mmol/L Blood Urea Nitrogen 13 7-18 mg/dl Creatinine 0.91 0.60-1.40 mg/dl Estimated GFR () 110.3 Estimated GFR (Non- 95.2 BUN/Creatinine Ratio 14.6 10-20 Random Glucose 128 70-99 mg/dl Lactic Acid Level 0.8 0.4-2.0 mmol/L Calcium Level 8.9 8.5-10.1 mg/dl Bedside D-Dimer 313 0-450 ng/mlFEU Microbiology Results 12/09/16 Blood Culture, Received Pending 12/09/16 Blood Culture, Received Pending Diagnostic Radiology CXR Per radiologist read: IMPRESSION: Bilateral parenchymal infiltrates versus atypical pulmonary edema. EKG Sinus Tachycardia 112 BPM, Qtc 431 Impression Assessment and Plan 56 year old male presents to the ED complaining of fever, and cough since last night. CXR with BL infiltrates. Reports he has been smoking "a lot" lately COMMUNITY ACQUIRED PNEUMONIA -Admit to tele -Presents with fever 39, WBC 15K, tachycardia, Lactate <2, flu negative, Ddimer negative -Blood cultures obtained -Empirically started on Aztreonam in ED secondary to allergies, will change to Azithromycin and Rocephin - discussed with pharmacy risk of penicillin cross reaction is low in 3rd generation cephalosporins -IVF hydration -Tylenol prn fever, will try to avoid NSAIDs if possible as patient has history of PUD -sputum cultures if cough becomes productive -CBC, PRP, Mg in AM SYSTEMIC INFLAMMATORY RESPONSE SYNDROME -Presents with Fever, Tachycardia, Leukocytosis -Likely secondary to pneumonia -management as above -will monitor in tele for now H/O RHABDOMYOLYSIS -multiple admission for this -check CK -IVF hydration ANXIETY/DEPRESSION -follows with Dr. Diaz -continue Buspirone, Wellbutrin, Cymbalta CHRONIC LEFT SHOULDER PAIN -continue Oxycodone, Gabapentin H/O MIGRAINES -continue Fioricet H/O TRANSVERSE MYELITIS URINARY RETENTION -continue Detrol ANEMIA - chronic -Hgb 10 today -follow H&H TOBACCO ABUSE -Cessation counseling given -Nicotine patch ordered GERD/PUD -continue PPI, Carafate DVT PROPHYLAXIS: Sq Lovenox CODE STATUS: FULL CODE DISPO:In my clinical judgment this beneficiary meets acute admission criteria, established by [facility], that includes being hospitalized through two midnights. Patient seen in collaboration with Dr. Lamar Attending Addendum: The patient was seen and examined Has been having respiratory symptoms for a few weeks Condition got worse today with fever and chills O/E Minimal SOB at rest Sweating a lot Chest:bilateral Basal coarse crackles ,right >>left Heart-regular,no murmur Abdomen-benign,no masses, Extremities: Multiple injuries especially around right knee of deferent ages Labs and Imaging studies were reviewed Has CAP Agree with the assessment and plan. Dr Ronaldo Lamar VTE Prophylaxis VTE Risk Assessment Done? Y/N: Yes Risk Level: Moderate
[2016-12-09] MEDS ORDERED: BUTALBITAL/ACETAMIN/CAFFEINE TAB PO PRN (10:00)
[2016-12-09] MEDS ORDERED: hydrOXYzine HCL 25 MG TAB PO PRN (10:00)
[2016-12-09] MEDS: SODIUM CHLORIDE 0.9% 1000ML 1,000 ML IV SCH ×2 (11:48→20:16)
[2016-12-09] MEDS: ENOXAPARIN 40 MG/0.4 ML SYR SC SCH (12:30)
[2016-12-09] MEDS: CEFTRIAXONE SOD INJ 1 GM in DEXTROSE 5% ADD-VANTAGE 50ML 50 ML IV SCH (12:30)
[2016-12-09] MEDS: AZITHROMYCIN IV 500 MG in DEXTROSE 5% 250ML 250 ML IV SCH (12:30)
[2016-12-09] MEDS: BusPIRone 15 MG TAB PO SCH ×2 (12:31→20:17)
[2016-12-09] MEDS: GABAPENTIN 800 MG TAB PO SCH ×3 (12:31→20:20)
[2016-12-09] MEDS: OXYCODONE HCL IR 30 MG TAB (IMMEDIATE RELEASE) PO PRN ×2 (14:00→20:16)
[2016-12-09 15:20] LABS: URINE APPEARANCE CLEAR (CLEAR); URINE COLOR DK YELLOW; URINE EPITHELIAL CELL AUTO >30 /lpf (0-5); URINE NITRITE NEG (NEG); URINE SPECIFIC GRAVITY 1.025 (1.000-1.030); UROBILINOGEN NEG (NEG); ZZUR CULT IF INDIC CLEAN CATCH NO
[2016-12-09 15:57] LABS: MANUAL MICROSCOPIC REQUIRED? NO; REVIEW REQ? YES; URINE BILIRUBIN NEG (NEG)
[2016-12-09 16:15] LABS: URINE MUCUS PRESENT (NONE PRSENT)
[2016-12-09] MEDS: SUCRALFATE 1 GM TAB PO SCH ×2 (17:38→20:20)
[2016-12-09] MEDS: BuPROPion SR 100 MG TABCR PO SCH (20:17)
[2016-12-09] MEDS: PANTOprazole SOD 40 MG TAB PO SCH (20:18)
[2016-12-09] MEDS: TOLTERODINE TARTRATE LA 2 MG CAPCR PO SCH (20:19)
[2016-12-10] VITALS (8 sets, daily range): BP systolic 105–128; BP diastolic 55–78; PULSE 65–87; TEMP 36.7–37.2; O2SAT 95–99
[2016-12-10] MEDS: SODIUM CHLORIDE 0.9% 1000ML 1,000 ML IV SCH ×3 (02:51→21:19)
[2016-12-10] MEDS: OXYCODONE HCL IR 30 MG TAB (IMMEDIATE RELEASE) PO PRN ×4 (03:35→21:49)
[2016-12-10 06:13] LABS: HEMATOCRIT 29.6 % (42-52); MEAN CELL VOLUME 87.1 fL (80-100); MEAN CORPUSCULAR HEMOGLOBIN 27.9 pg (25-34); MEAN CORPUSCULAR HGB CONC 32.1 g/dl (32-36); MEAN PLATELET VOLUME 9.9 fL (7.4-10.4); PLATELET COUNT 271 K/uL (130-400); WHITE BLOOD COUNT 8.58 K/uL (4.8-10.8)
[2016-12-10] MEDS: SUCRALFATE 1 GM TAB PO SCH ×4 (06:14→21:20)
[2016-12-10 06:48] LABS: BUN/CREATININE RATIO 12.1 (10-20); CREATININE 0.72 mg/dl (0.60-1.40); MAGNESIUM 2.7 mg/dl (1.8-2.4)
[2016-12-10] MEDS: NICOTINE 14 MG/24 HR TDSY TD SCH (08:05)
[2016-12-10] MEDS: BusPIRone 15 MG TAB PO SCH ×3 (08:06→21:21)
[2016-12-10] MEDS: ENOXAPARIN 40 MG/0.4 ML SYR SC SCH (08:06)
[2016-12-10] MEDS: DULOXETINE HCL 60 MG CAP PO SCH (08:06)
[2016-12-10] MEDS: ASPIRIN 81 MG ECTAB PO SCH (08:06)
[2016-12-10] MEDS: BuPROPion SR 100 MG TABCR PO SCH ×2 (08:06→21:21)
[2016-12-10] MEDS: PANTOprazole SOD 40 MG TAB PO SCH ×2 (08:07→21:21)
[2016-12-10] MEDS: TOLTERODINE TARTRATE LA 2 MG CAPCR PO SCH ×2 (08:07→21:21)
[2016-12-10] MEDS: GABAPENTIN 800 MG TAB PO SCH ×4 (08:07→21:20)
[2016-12-10] MEDS: AZITHROMYCIN IV 500 MG in DEXTROSE 5% 250ML 250 ML IV SCH (08:11)
[2016-12-10] MEDS: CEFTRIAXONE SOD INJ 1 GM in DEXTROSE 5% ADD-VANTAGE 50ML 50 ML IV SCH (12:23)
--- NOTE | 2016-12-10 15:39 | Progress Note ---
Subjective Date of Service: December 10, 2016. Subjective Pt evaluation today including: conversation w/ patient, conversation w/ family , physical exam, lab review, review of studies, review of inpatient medication list Saw/examined the patient in room 286 He presented to the ER with fever, cough, shortness of breath, weakness States he feels slightly better today, though cough is bothering him Problem List Medical Problems: (1) Acute delirium Status: Acute (2) Back pain Status: Acute (3) Back pain Status: Acute (4) Back pain Status: Acute (5) Central chest pain Status: Acute (6) Change in mental status Status: Acute (7) Chronic back pain Status: Chronic (8) Chronic back pain Status: Acute (9) Chronic low back pain Status: Acute (10) Contusion of multiple sites Status: Acute (11) Dehydration Status: Acute (12) Dehydration Status: Acute (13) Dehydration Status: Acute (14) Dehydration Status: Acute (15) Fall Status: Acute (16) Fall Status: Acute (17) Frequent falls Status: Acute (18) Headache Status: Acute (19) History of rhabdomyolysis Status: Acute (20) Hypoglycemia Status: Acute (21) Left hip pain Status: Acute (22) Left shoulder pain Status: Acute (23) Leg weakness Status: Acute (24) Low back pain Status: Acute (25) Lower back pain Status: Acute (26) Neck pain Status: Acute (27) Rhabdomyolysis Status: Acute (28) Rhabdomyolysis Status: Acute (29) Rib pain on left side Status: Acute (30) Tachycardia Status: Acute Review of Systems Constitutional: + fever, + weakness, No chills, No weight loss Respiratory: + cough, + shortness of breath (improving), + sputum Cardiac: No chest pain Abdomen: No diarrhea, No nausea, No pain, No vomiting Musculoskeletal: + joint pain (chronic) Heme: No abnormal bleeding/bruising Medications Current Inpatient Medications Medications (Trade) Dose Ordered Sig/Gurpreet Route Start Time Stop Time Status Last Admin Dose Admin Enoxaparin Sodium (Lovenox Inj) 40 mg QAM SC 12/09/16 12:30 01/08/17 12:29 12/10/16 08:06 40 MG Acetaminophen (Tylenol Tab) 650 mg Q4H PRN PO 12/09/16 09:45 01/08/17 09:44 Ondansetron HCl 4 mg 4 mg Q6H PRN IV 12/09/16 09:45 01/08/17 09:44 Sodium Chloride (Nss 1000ml) 1,000 ml @ 125 mls/hr Q8H IV 12/09/16 12:00 01/08/17 11:59 12/10/16 12:25 125 MLS/HR Acetaminophen/ Butalbital/ Caffeine (Fioricet Tab) 1 tab BID PRN PO 12/09/16 10:00 01/08/17 09:59 12/10/16 09:07 1 TAB Aspirin (Ecotrin Tab) 81 mg DAILY PO 12/10/16 09:00 01/09/17 08:59 12/10/16 08:06 81 MG Bupropion HCl (Wellbutrin-Sr Tab) 200 mg BID PO 12/09/16 21:00 01/08/17 20:59 12/10/16 08:06 200 MG Buspirone HCl (BusPAR TAB) 15 mg TID PO 12/09/16 14:00 01/08/17 13:59 12/10/16 12:25 15 MG Duloxetine HCl (Cymbalta Cap) 60 mg DAILY PO 12/10/16 09:00 01/09/17 08:59 12/10/16 08:06 60 MG Gabapentin (Neurontin Tab) 800 mg QID PO 12/09/16 13:00 01/08/17 12:59 12/10/16 12:25 800 MG Oxycodone HCl (Roxicodone Immediate Rel Tab) 30 mg QID PRN PO 12/09/16 10:00 12/23/16 09:59 12/10/16 10:48 30 MG Pantoprazole Sodium (Protonix Tab) 40 mg BID PO 12/09/16 21:00 01/08/17 20:59 12/10/16 08:07 40 MG Sucralfate (Carafate Tab) 1 gm ACHS PO 12/09/16 16:30 01/08/17 16:29 12/10/16 10:48 1 GM Tolterodine Tartrate (Detrol LA Cap) 2 mg BID PO 12/09/16 21:00 01/08/17 20:59 12/10/16 08:07 2 MG Hydroxyzine HCl 25 mg 25 mg Q8 PRN PO 12/09/16 10:00 01/08/17 09:59 Ceftriaxone Sodium 1 gm/ Dextrose 50 ml @ 100 mls/hr Q24H IV 12/09/16 12:00 12/16/16 11:59 12/10/16 12:23 100 MLS/HR Azithromycin/ Dextrose (Zithromax IV/D5 250ml) 255 ml @ 125 mls/hr DAILY IV 12/09/16 12:00 12/16/16 11:59 12/10/16 08:11 125 MLS/HR Nicotine (Nicoderm Cq 14MG Patch) 1 patch QAM TD 12/10/16 09:00 01/09/17 08:59 12/10/16 08:05 1 PATCH Miscellaneous (Remove Nicoderm Patch) 1 ea HS N/A 12/10/16 21:00 01/09/17 20:59 Objective Vital Signs Date Time Temp Pulse Resp B/P Pulse Ox O2 Delivery O2 Flow Rate FiO2 12/10/16 12:09 37.0 87 18 128/55 95 12/10/16 12:01 97 Nasal Cannula 2.0 12/10/16 08:33 36.8 71 18 111/73 97 12/10/16 08:00 97 Nasal Cannula 2.0 12/10/16 04:34 37.2 87 20 121/78 97 2.0 12/10/16 04:00 Nasal Cannula 2.0 12/10/16 00:00 Nasal Cannula 2.0 12/09/16 23:25 36.7 79 20 110/68 93 Room Air 12/09/16 20:01 97 Nasal Cannula 2.0 12/09/16 19:27 36.4 70 18 123/81 95 Room Air 12/09/16 16:10 97 Nasal Cannula 2.0 Physical Exam General Appearance: no apparent distress Respiratory/Chest: chest non-tender, no respiratory distress, no accessory muscle use, + decreased breath sounds Cardiovascular: regular rate, rhythm, no edema, no murmur Extremities: normal inspection, no pedal edema Neurologic/Psychiatric: no motor/sensory deficits, alert, normal mood/affect Laboratory Results Last 24 Hours Test 12/10/16 05:54 White Blood Count 8.58 K/uL Red Blood Count 3.40 M/uL Hemoglobin 9.5 g/dL Hematocrit 29.6 % Mean Corpuscular Volume 87.1 fL Mean Corpuscular Hemoglobin 27.9 pg Mean Corpuscular Hemoglobin Concent 32.1 g/dl RDW Standard Deviation 52.7 fL RDW Coefficient of Variation 16.7 % Platelet Count 271 K/uL Mean Platelet Volume 9.9 fL Sodium Level 139 mmol/L Potassium Level 4.0 mmol/L Chloride Level 106 mmol/L Carbon Dioxide Level 28 mmol/L Anion Gap 5.0 mmol/L Blood Urea Nitrogen 9 mg/dl Creatinine 0.72 mg/dl Est Creatinine Clear Calc Drug Dose 105.8 ml/min Estimated GFR () 122.6 Estimated GFR (Non- 105.8 BUN/Creatinine Ratio 12.1 Random Glucose 107 mg/dl Calcium Level 8.0 mg/dl Magnesium Level 2.7 mg/dl Total Creatine Kinase 484 U/L Assessment and Plan This is a 56 year old male with a PMH of transverse myelitis, depression/anxiety , recurrent rhabdomyolysis, long-term narcotic use, urinary retention presents with fever, cough, shortness of breath - found to have bilateral pneumonia Community Acquired Pneumonia CXR shows bilateral parenchymal infiltrates he presented with cough, shortness of breath +fever, mild leukocytosis, no lactic acid elevation started on Rocephin + Azithromycin WBC has normalized continue IV abx for 1-2 days and then transition to PO prior to discharge 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 of Migraines Fioricet as needed Urinary Retention cont. Detrol Chronic Anemia H/H stable Tobacco Use Disorder nicotine patch counseled patient to stop smoking GERD/PUD continue PPI and Carafate DVT ppx Lovenox FULL CODE
[2016-12-10] MEDS: BENZONATATE 100MG CAP PO SCH (21:20)
[2016-12-11] VITALS (10 sets, daily range): BP systolic 96–135; BP diastolic 62–85; PULSE 52–72; TEMP 36.4–37.2; O2SAT 94–99
[2016-12-11] MEDS: SODIUM CHLORIDE 0.9% 1000ML 1,000 ML IV SCH (03:17)
[2016-12-11 05:54] LABS: HEMATOCRIT 30.4 % (42-52); MEAN CELL VOLUME 87.6 fL (80-100); MEAN CORPUSCULAR HEMOGLOBIN 27.7 pg (25-34); MEAN CORPUSCULAR HGB CONC 31.6 g/dl (32-36); MEAN PLATELET VOLUME 9.6 fL (7.4-10.4); PLATELET COUNT 289 K/uL (130-400); RED BLOOD COUNT 3.47 M/uL (4.7-6.1); WHITE BLOOD COUNT 5.65 K/uL (4.8-10.8)
[2016-12-11] MEDS: SUCRALFATE 1 GM TAB PO SCH ×4 (06:01→21:42)
[2016-12-11 06:45] LABS: BUN/CREATININE RATIO 9.2 (10-20); CALCIUM 8.4 mg/dl (8.5-10.1); CREATININE 0.73 mg/dl (0.60-1.40); MAGNESIUM 2.6 mg/dl (1.8-2.4); POTASSIUM 4.1 mmol/L (3.5-5.1)
[2016-12-11] MEDS: TOLTERODINE TARTRATE LA 2 MG CAPCR PO SCH ×2 (07:53→21:42)
[2016-12-11] MEDS: PANTOprazole SOD 40 MG TAB PO SCH ×2 (07:53→21:41)
[2016-12-11] MEDS: GABAPENTIN 800 MG TAB PO SCH ×4 (07:53→21:42)
[2016-12-11] MEDS: NICOTINE 14 MG/24 HR TDSY TD SCH (07:53)
[2016-12-11] MEDS: ASPIRIN 81 MG ECTAB PO SCH (07:53)
[2016-12-11] MEDS: BusPIRone 15 MG TAB PO SCH ×3 (07:54→21:41)
[2016-12-11] MEDS: BuPROPion SR 100 MG TABCR PO SCH ×2 (07:54→21:40)
[2016-12-11] MEDS: DULOXETINE HCL 60 MG CAP PO SCH (07:54)
[2016-12-11] MEDS: ENOXAPARIN 40 MG/0.4 ML SYR SC SCH (07:55)
[2016-12-11] MEDS: BENZONATATE 100MG CAP PO SCH ×3 (07:55→21:43)
[2016-12-11] MEDS: OXYCODONE HCL IR 30 MG TAB (IMMEDIATE RELEASE) PO PRN ×3 (08:00→21:40)
--- NOTE | 2016-12-11 08:48 | Progress Note ---
Subjective Date of Service: December 11, 2016. Subjective Pt evaluation today including: conversation w/ patient, physical exam, lab review, review of studies, review of inpatient medication list Saw/examined the patient in room 286 Doing much better today, cough is improving No significant shortness of breath, denies chest pain; no fevers/chills, no nausea/vomiting Problem List Medical Problems: (1) Acute delirium Status: Acute (2) Back pain Status: Acute (3) Back pain Status: Acute (4) Back pain Status: Acute (5) Central chest pain Status: Acute (6) Change in mental status Status: Acute (7) Chronic back pain Status: Chronic (8) Chronic back pain Status: Acute (9) Chronic low back pain Status: Acute (10) Contusion of multiple sites Status: Acute (11) Dehydration Status: Acute (12) Dehydration Status: Acute (13) Dehydration Status: Acute (14) Dehydration Status: Acute (15) Fall Status: Acute (16) Fall Status: Acute (17) Frequent falls Status: Acute (18) Headache Status: Acute (19) History of rhabdomyolysis Status: Acute (20) Hypoglycemia Status: Acute (21) Left hip pain Status: Acute (22) Left shoulder pain Status: Acute (23) Leg weakness Status: Acute (24) Low back pain Status: Acute (25) Lower back pain Status: Acute (26) Neck pain Status: Acute (27) Rhabdomyolysis Status: Acute (28) Rhabdomyolysis Status: Acute (29) Rib pain on left side Status: Acute (30) Tachycardia Status: Acute Review of Systems Constitutional: No chills, No fever Respiratory: + cough, + sputum, No dyspnea on exertion, No shortness of breath , No wheezing Cardiac: No chest pain, No edema, No palpitations Abdomen: No diarrhea, No nausea, No pain, No vomiting Medications Current Inpatient Medications Medications (Trade) Dose Ordered Sig/Gurpreet Route Start Time Stop Time Status Last Admin Dose Admin Enoxaparin Sodium (Lovenox Inj) 40 mg QAM SC 12/09/16 12:30 01/08/17 12:29 12/11/16 07:55 40 MG Acetaminophen (Tylenol Tab) 650 mg Q4H PRN PO 12/09/16 09:45 01/08/17 09:44 Ondansetron HCl (Zofran Inj) 4 mg Q6H PRN IV 12/09/16 09:45 01/08/17 09:44 Acetaminophen/ Butalbital/ Caffeine (Fioricet Tab) 1 tab BID PRN PO 12/09/16 10:00 01/08/17 09:59 12/10/16 09:07 1 TAB Aspirin (Ecotrin Tab) 81 mg DAILY PO 12/10/16 09:00 01/09/17 08:59 12/11/16 07:53 81 MG Bupropion HCl (Wellbutrin-Sr Tab) 200 mg BID PO 12/09/16 21:00 01/08/17 20:59 12/11/16 07:54 200 MG Buspirone HCl (BusPAR TAB) 15 mg TID PO 12/09/16 14:00 01/08/17 13:59 12/11/16 07:54 15 MG Duloxetine HCl (Cymbalta Cap) 60 mg DAILY PO 12/10/16 09:00 01/09/17 08:59 12/11/16 07:54 60 MG Gabapentin (Neurontin Tab) 800 mg QID PO 12/09/16 13:00 01/08/17 12:59 12/11/16 07:53 800 MG Oxycodone HCl (Roxicodone Immediate Rel Tab) 30 mg QID PRN PO 12/09/16 10:00 12/23/16 09:59 12/11/16 08:00 30 MG Pantoprazole Sodium (Protonix Tab) 40 mg BID PO 12/09/16 21:00 01/08/17 20:59 12/11/16 07:53 40 MG Sucralfate (Carafate Tab) 1 gm ACHS PO 12/09/16 16:30 01/08/17 16:29 12/11/16 06:01 1 GM Tolterodine Tartrate (Detrol LA Cap) 2 mg BID PO 12/09/16 21:00 01/08/17 20:59 12/11/16 07:53 2 MG Hydroxyzine HCl (Vistaril Tab) 25 mg Q8 PRN PO 12/09/16 10:00 01/08/17 09:59 Nicotine (Nicoderm Cq 14MG Patch) 1 patch QAM TD 12/10/16 09:00 01/09/17 08:59 12/11/16 07:53 1 PATCH Miscellaneous (Remove Nicoderm Patch) 1 ea HS N/A 12/10/16 21:00 01/09/17 20:59 12/10/16 21:19 1 EA Benzonatate (Tessalon Perles Cap) 100 mg TID PO 12/10/16 21:00 01/09/17 20:59 12/11/16 07:55 100 MG Doxycycline Hyclate (Vibramycin Cap) 100 mg BID PO 12/11/16 09:00 12/16/16 08:59 Objective Vital Signs Date Time Temp Pulse Resp B/P Pulse Ox O2 Delivery O2 Flow Rate FiO2 12/11/16 08:01 97 Room Air 12/11/16 07:28 36.7 52 22 103/67 Room Air 97.0 12/11/16 04:46 Nasal Cannula 2.0 12/11/16 00:12 36.4 66 18 96/62 97 2.0 12/11/16 00:00 Nasal Cannula 2.0 12/10/16 20:09 37.0 70 18 105/67 99 Room Air 12/10/16 20:09 97 Nasal Cannula 2.0 12/10/16 16:10 97 Nasal Cannula 2.0 12/10/16 15:31 36.7 65 18 118/76 99 12/10/16 12:09 37.0 87 18 128/55 95 12/10/16 12:01 97 Nasal Cannula 2.0 Physical Exam General Appearance: no apparent distress Respiratory/Chest: lungs clear, normal breath sounds, no respiratory distress, no accessory muscle use Cardiovascular: regular rate, rhythm, no edema, no murmur Extremities: normal inspection, no pedal edema Laboratory Results Last 24 Hours Test 12/11/16 05:45 White Blood Count 5.65 K/uL Red Blood Count 3.47 M/uL Hemoglobin 9.6 g/dL Hematocrit 30.4 % Mean Corpuscular Volume 87.6 fL Mean Corpuscular Hemoglobin 27.7 pg Mean Corpuscular Hemoglobin Concent 31.6 g/dl RDW Standard Deviation 53.9 fL RDW Coefficient of Variation 17.1 % Platelet Count 289 K/uL Mean Platelet Volume 9.6 fL Sodium Level 146 mmol/L Potassium Level 4.1 mmol/L Chloride Level 112 mmol/L Carbon Dioxide Level 27 mmol/L Anion Gap 7.0 mmol/L Blood Urea Nitrogen 7 mg/dl Creatinine 0.73 mg/dl Est Creatinine Clear Calc Drug Dose 104.3 ml/min Estimated GFR () 121.9 Estimated GFR (Non- 105.2 BUN/Creatinine Ratio 9.2 Random Glucose 104 mg/dl Calcium Level 8.4 mg/dl Magnesium Level 2.6 mg/dl Assessment and Plan This is a 56 year old male with a PMH of transverse myelitis, depression/anxiety , recurrent rhabdomyolysis, long-term narcotic use, urinary retention presents with fever, cough, shortness of breath - found to have bilateral pneumonia Community Acquired Pneumonia 12/11 patient is doing better clinically afebrile, leukocytosis resolved will switch from IV Rocephin and Azithro to PO Doxycycline 100mg BID x5 days tentative discharge plan for 12/12 12/10 CXR shows bilateral parenchymal infiltrates he presented with cough, shortness of breath +fever, mild leukocytosis, no lactic acid elevation started on Rocephin + Azithromycin WBC has normalized continue IV abx for 1-2 days and then transition to PO prior to discharge 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 of Migraines Fioricet as needed Urinary Retention cont. Detrol Chronic Anemia H/H stable Tobacco Use Disorder nicotine patch counseled patient to stop smoking GERD/PUD continue PPI and Carafate DVT ppx Lovenox FULL CODE
[2016-12-11] MEDS: DOXYCYCLINE HYCLATE 100 MG CAP PO SCH ×2 (09:14→21:43)
[2016-12-12 04:03] VITALS: BP 110/74; PULSE 67; TEMP 36.9; O2SAT 96
[2016-12-12 06:01] LABS: HEMATOCRIT 31.1 % (42-52); MEAN CELL VOLUME 89.4 fL (80-100); MEAN CORPUSCULAR HEMOGLOBIN 28.4 pg (25-34); MEAN CORPUSCULAR HGB CONC 31.8 g/dl (32-36); MEAN PLATELET VOLUME 10.3 fL (7.4-10.4); PLATELET COUNT 304 K/uL (130-400); RED BLOOD COUNT 3.48 M/uL (4.7-6.1); WHITE BLOOD COUNT 9.24 K/uL (4.8-10.8)
[2016-12-12 06:28] LABS: BUN/CREATININE RATIO 8.4 (10-20); CALCIUM 8.3 mg/dl (8.5-10.1); CREATININE 0.93 mg/dl (0.60-1.40); POTASSIUM 3.8 mmol/L (3.5-5.1)
[2016-12-12 06:55] VITALS: BP 91/63; PULSE 67; TEMP 36.8; O2SAT 94
[2016-12-12] MEDS: BusPIRone 15 MG TAB PO SCH (07:45)
[2016-12-12] MEDS: TOLTERODINE TARTRATE LA 2 MG CAPCR PO SCH (07:45)
[2016-12-12] MEDS: PANTOprazole SOD 40 MG TAB PO SCH (07:45)
[2016-12-12] MEDS: ASPIRIN 81 MG ECTAB PO SCH (07:45)
[2016-12-12] MEDS: DOXYCYCLINE HYCLATE 100 MG CAP PO SCH (07:46)
[2016-12-12] MEDS: BuPROPion SR 100 MG TABCR PO SCH (07:46)
[2016-12-12] MEDS: GABAPENTIN 800 MG TAB PO SCH (07:46)
[2016-12-12] MEDS: DULOXETINE HCL 60 MG CAP PO SCH (07:46)
[2016-12-12] MEDS: BENZONATATE 100MG CAP PO SCH (07:47)
[2016-12-12] MEDS: SUCRALFATE 1 GM TAB PO SCH (07:47)
[2016-12-12] MEDS: ENOXAPARIN 40 MG/0.4 ML SYR SC SCH (07:48)
[2016-12-12] MEDS: NICOTINE 14 MG/24 HR TDSY TD SCH (07:48)
[2016-12-12] MEDS: OXYCODONE HCL IR 30 MG TAB (IMMEDIATE RELEASE) PO PRN (08:11)
--- NOTE | 2016-12-12 08:56 | Progress Note ---
Subjective Date of Service: December 12, 2016. Subjective Pt evaluation today including: conversation w/ patient, physical exam, lab review, review of studies, review of inpatient medication list Saw/examined the patient in room 286 Cough is much improved, no shortness of breath, no chest pain back pain persists, which is chronic Problem List Medical Problems: (1) Acute delirium Status: Acute (2) Back pain Status: Acute (3) Back pain Status: Acute (4) Back pain Status: Acute (5) Central chest pain Status: Acute (6) Change in mental status Status: Acute (7) Chronic back pain Status: Chronic (8) Chronic back pain Status: Acute (9) Chronic low back pain Status: Acute (10) Contusion of multiple sites Status: Acute (11) Dehydration Status: Acute (12) Dehydration Status: Acute (13) Dehydration Status: Acute (14) Dehydration Status: Acute (15) Fall Status: Acute (16) Fall Status: Acute (17) Frequent falls Status: Acute (18) Headache Status: Acute (19) History of rhabdomyolysis Status: Acute (20) Hypoglycemia Status: Acute (21) Left hip pain Status: Acute (22) Left shoulder pain Status: Acute (23) Leg weakness Status: Acute (24) Low back pain Status: Acute (25) Lower back pain Status: Acute (26) Neck pain Status: Acute (27) Rhabdomyolysis Status: Acute (28) Rhabdomyolysis Status: Acute (29) Rib pain on left side Status: Acute (30) Tachycardia Status: Acute Review of Systems Constitutional: No chills, No fever Respiratory: + cough (improving), + sputum, No dyspnea at rest, No dyspnea on exertion, No hemoptysis, No shortness of breath, No wheezing Cardiac: No chest pain, No edema, No palpitations Medications Current Inpatient Medications Medications (Trade) Dose Ordered Sig/Gurpreet Route Start Time Stop Time Status Last Admin Dose Admin Enoxaparin Sodium (Lovenox Inj) 40 mg QAM SC 12/09/16 12:30 01/08/17 12:29 12/12/16 07:48 40 MG Acetaminophen (Tylenol Tab) 650 mg Q4H PRN PO 12/09/16 09:45 01/08/17 09:44 Ondansetron HCl (Zofran Inj) 4 mg Q6H PRN IV 12/09/16 09:45 01/08/17 09:44 Acetaminophen/ Butalbital/ Caffeine (Fioricet Tab) 1 tab BID PRN PO 12/09/16 10:00 01/08/17 09:59 12/10/16 09:07 1 TAB Aspirin (Ecotrin Tab) 81 mg DAILY PO 12/10/16 09:00 01/09/17 08:59 12/12/16 07:45 81 MG Bupropion HCl (Wellbutrin-Sr Tab) 200 mg BID PO 12/09/16 21:00 01/08/17 20:59 12/12/16 07:46 200 MG Buspirone HCl (BusPAR TAB) 15 mg TID PO 12/09/16 14:00 01/08/17 13:59 12/12/16 07:45 15 MG Duloxetine HCl (Cymbalta Cap) 60 mg DAILY PO 12/10/16 09:00 01/09/17 08:59 12/12/16 07:46 60 MG Gabapentin (Neurontin Tab) 800 mg QID PO 12/09/16 13:00 01/08/17 12:59 12/12/16 07:46 800 MG Oxycodone HCl (Roxicodone Immediate Rel Tab) 30 mg QID PRN PO 12/09/16 10:00 12/23/16 09:59 12/12/16 08:11 30 MG Pantoprazole Sodium (Protonix Tab) 40 mg BID PO 12/09/16 21:00 01/08/17 20:59 12/12/16 07:45 40 MG Sucralfate (Carafate Tab) 1 gm ACHS PO 12/09/16 16:30 01/08/17 16:29 12/12/16 07:47 1 GM Tolterodine Tartrate (Detrol LA Cap) 2 mg BID PO 12/09/16 21:00 01/08/17 20:59 12/12/16 07:45 2 MG Hydroxyzine HCl (Vistaril Tab) 25 mg Q8 PRN PO 12/09/16 10:00 01/08/17 09:59 Nicotine (Nicoderm Cq 14MG Patch) 1 patch QAM TD 12/10/16 09:00 01/09/17 08:59 12/12/16 07:48 1 PATCH Miscellaneous (Remove Nicoderm Patch) 1 ea HS N/A 12/10/16 21:00 01/09/17 20:59 12/11/16 21:40 1 EA Benzonatate (Tessalon Perles Cap) 100 mg TID PO 12/10/16 21:00 01/09/17 20:59 12/12/16 07:47 100 MG Doxycycline Hyclate (Vibramycin Cap) 100 mg BID PO 12/11/16 09:00 12/16/16 08:59 12/12/16 07:46 100 MG Objective Vital Signs Date Time Temp Pulse Resp B/P Pulse Ox O2 Delivery O2 Flow Rate FiO2 12/12/16 06:55 36.8 67 18 91/63 94 Room Air 12/12/16 04:03 36.9 67 16 110/74 96 Room Air 12/12/16 04:00 Room Air 12/11/16 23:59 Room Air 12/11/16 23:51 37.2 72 20 129/85 96 Room Air 12/11/16 20:02 97 Room Air 12/11/16 19:12 36.7 68 18 125/78 98 Room Air 12/11/16 16:10 97 Room Air 12/11/16 15:00 36.6 62 20 135/82 99 Room Air 12/11/16 12:01 97 Room Air 12/11/16 11:48 36.5 65 16 106/66 94 Room Air Physical Exam General Appearance: no apparent distress Respiratory/Chest: lungs clear, normal breath sounds, no respiratory distress, no accessory muscle use Cardiovascular: regular rate, rhythm, no edema, no murmur Laboratory Results Last 24 Hours Test 12/12/16 05:16 White Blood Count 9.24 K/uL Red Blood Count 3.48 M/uL Hemoglobin 9.9 g/dL Hematocrit 31.1 % Mean Corpuscular Volume 89.4 fL Mean Corpuscular Hemoglobin 28.4 pg Mean Corpuscular Hemoglobin Concent 31.8 g/dl RDW Standard Deviation 56.8 fL RDW Coefficient of Variation 17.4 % Platelet Count 304 K/uL Mean Platelet Volume 10.3 fL Sodium Level 142 mmol/L Potassium Level 3.8 mmol/L Chloride Level 108 mmol/L Carbon Dioxide Level 31 mmol/L Anion Gap 3.0 mmol/L Blood Urea Nitrogen 8 mg/dl Creatinine 0.93 mg/dl Est Creatinine Clear Calc Drug Dose 81.9 ml/min Estimated GFR () 107.5 Estimated GFR (Non- 92.7 BUN/Creatinine Ratio 8.4 Random Glucose 110 mg/dl Calcium Level 8.3 mg/dl Assessment and Plan This is a 56 year old male with a PMH of transverse myelitis, depression/anxiety , recurrent rhabdomyolysis, long-term narcotic use, urinary retention presents with fever, cough, shortness of breath - found to have bilateral pneumonia Community Acquired Pneumonia 12/12 plan is to discharge patient home today I'll discharge with Doxycycline 100mg BID for 4 more days outpatient PCP follow-up 12/11 patient is doing better clinically afebrile, leukocytosis resolved will switch from IV Rocephin and Azithro to PO Doxycycline 100mg BID x5 days tentative discharge plan for 12/12 12/10 CXR shows bilateral parenchymal infiltrates he presented with cough, shortness of breath +fever, mild leukocytosis, no lactic acid elevation started on Rocephin + Azithromycin WBC has normalized continue IV abx for 1-2 days and then transition to PO prior to discharge 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 of Migraines Fioricet as needed Urinary Retention cont. Detrol Chronic Anemia H/H stable Tobacco Use Disorder nicotine patch counseled patient to stop smoking GERD/PUD continue PPI and Carafate DVT ppx Lovenox FULL CODE
[2016-12-12] MEDS ORDERED: NICO14DI9 TD (08:59)
[2016-12-12] MEDS ORDERED: DXY100 PO (08:59)
--- NOTE | 2016-12-12 09:14 | Discharge Instructions ---
Discharge Instructions Date of Service December 12, 2016. Admission Reason for Admission: Community Acquired Pneumonia Discharge Discharge Diagnosis / Problem: Community Acquired Pneumonia Discharge Goals Goal(s): Decrease discomfort, Improve function Activity Recommendations Activity Limitations: resume your previous activity . Instructions / Follow-Up Instructions / Follow-Up Please follow-up with Dr. Huang (covering for Dr. Flores) on December 14 @ 10:45AM * You will be given doxycycline (antibiotic) - take this twice a day for the next four days * You will be prescribed nicotine patches - please speak to primary care doctor about tobacco cessation Current Hospital Diet Patient's current hospital diet: AHA Diet (Heart Healthy) Discharge Diet Recommended Diet: AHA Diet (Heart Healthy) Pending Studies Studies pending at discharge: no Medical Emergencies . Who to Call and When: Medical Emergencies: If at any time you feel your situation is an emergency, please call 911 immediately. . Non-Emergent Contact Non-Emergency issues call your: Primary Care Provider . . "Provider Documentation" section prepared by Tulio Noyola. . VTE Core Measure Inpt VTE Proph given/why not?: Enoxaparin (Lovenox)SQ
--- NOTE | 2016-12-12 09:15 | Discharge Summary ---
Discharge Summary Date of Service December 12, 2016. Discharge Summary Admission Date: December 09, 2016 at 09:47 Discharge Date: December 12, 2016 Discharge Disposition: Home Principal Diagnosis: Community Acquired Pneumonia Medication Reconciliation New Medications: Doxycycline Hyclate (Doxycycline Hyclate) 100 Mg Cap 100 MG PO BID for 4 Days, #8 CAP Nicotine (Nicotine) 14 Mg/24 Hr Dis 14 MG TD QAM for 30 Days, #1 BOX Continued Medications: Acetamin/Butalbital/Caffeine (Fioricet) 1 Ea Tab 1-2 TABS PO BID PRN for Headache Aspirin (Aspirin Ec) 81 Mg Tab 81 MG PO DAILY Bupropion (Wellbutrin Sr) 200 Mg Ertab 200 MG PO BID, TAB Buspirone HCl (Buspirone HCl) 15 Mg Tab 15 MG PO TID Diphenoxylate/Atropine (Lomotil) Tab 1 TAB PO UD PRN for Diarrhea, TAB TAKE 2 TABLETS AT ONSET OF DIARRHEA THEN 1 TABLET AFTER EACH EPISODE. MAXIMUM 8 TABLETS PER DAY. Duloxetine HCl (Duloxetine HCl) 60 Mg Cap 60 MG PO DAILY Gabapentin (Gabapentin) 800 Mg Tab 800 MG PO QID Hydroxyzine HCl (Hydroxyzine Pamoate) 25 Mg Tab 25 MG PO Q8 PRN for Anxiety, #90 Oxycodone HCl (Oxycodone HCl) 30 Mg Tab 30 MG PO QID PRN for Pain Pantoprazole (Pantoprazole Sodium) 40 Mg Tab 40 MG PO BID Rizatriptan Benzoate (Rizatriptan Benzoate) 10 Mg Tab 10 MG PO UD PRN for Headache TAKE 1 TABLET AT ONSET OF HEADACHE MAY REPEAT EVERY 2 HOURS IF NEEDED, MAXIMUM 2 TABLETS IN 24 HOURS Sucralfate (Carafate) 1 Gm Tab 1 GM PO ACHS, TAB Tadalafil (Cialis) 5 Mg Tab 5 MG PO UD PRN for erectile dysfunction, TAB Testosterone Cypionate (Testosterone Cypionate) 200 Mg/Ml Inj 100 MG INJ 2XWK Tolterodine Tartrate (Detrol LA) 2 Mg Capcr 2 MG PO BID, CAP Admission Information HPI (per Admitting provider): Patient seen and examined. 56 year old male with PMHx of transverse myelitis, multiple episodes of rhabdomyolysis, Anxiety, depression, urinary retention, and tobacco abuse presents to the ED complaining of fever since last night. Patient reports he has felt feverish, and has had a dry nonproductive cough. He reports associated mild SOB. He states his chest hurts when he coughs. He reports his throat feels "scratchy." Prior to last evening he reports he has been feeling at baseline. He states he has recently been smoking more than normal for no particular reason. He denies sick contacts and has not been taking anything for his symptoms. He denies chest pain, palpitations, nausea, vomiting, diarrhea, dysuria, calf pain and edema. In the ED patient is febrile and tachycardic. WBC count is 15K, lactate is normal. CXR shows bilateral infiltrates. He received aztreonam. He will be admitted for further workup and treatment. Physical Exam (per Admitting): General Appearance: + pertinent finding (WD/WN 56 year old male nontoxic appearing, sitting in bed in NAD with at bedside ) Head: normocephalic, atraumatic Eyes: PERRL, EOMI, sclerae normal ENT: hearing grossly normal, pharynx normal Neck: supple, no JVD, trachea midline Respiratory/Chest: normal breath sounds, no respiratory distress, no accessory muscle use, + crackles (BL bases ), + pertinent finding (chest tender to palpation ) Cardiovascular: no edema, no gallop, no JVD, no murmur, normal peripheral pulses, + tachycardia (110s, regular ) Abdomen/GI: normal bowel sounds, non tender, soft Back: normal inspection, no muscle spasm Extremities/Musculoskelatal: no calf tenderness, normal capillary refill, no pedal edema Neurologic/Psych: alert, oriented x 3, + pertinent finding (nonfocal on gross exam ) Skin: normal color, warm/dry, no rash Lymphatic: no adenopathy Hospital Course This is a 56 year old male with a PMH of transverse myelitis, depression/anxiety , recurrent rhabdomyolysis, long-term narcotic use, urinary retention presents with fever, cough, shortness of breath - found to have bilateral pneumonia Community Acquired Pneumonia 12/12 plan is to discharge patient home today I'll discharge with Doxycycline 100mg BID for 4 more days outpatient PCP follow-up 12/11 patient is doing better clinically afebrile, leukocytosis resolved will switch from IV Rocephin and Azithro to PO Doxycycline 100mg BID x5 days tentative discharge plan for 12/12 12/10 CXR shows bilateral parenchymal infiltrates he presented with cough, shortness of breath +fever, mild leukocytosis, no lactic acid elevation started on Rocephin + Azithromycin WBC has normalized continue IV abx for 1-2 days and then transition to PO prior to discharge 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 of Migraines Fioricet as needed Urinary Retention cont. Detrol Chronic Anemia H/H stable Tobacco Use Disorder nicotine patch counseled patient to stop smoking GERD/PUD continue PPI and Carafate DVT ppx Lovenox FULL CODE Total time spent on discharge = 40 minutes This includes examination of the patient, discharge planning, medication reconciliation, and communication with other providers. Discharge Instructions Please follow-up with Dr. Huang (covering for Dr. Flores) on December 14 @ 10:45AM * You will be given doxycycline (antibiotic) - take this twice a day for the next four days * You will be prescribed nicotine patches - please speak to primary care doctor about tobacco cessation
[2016-12-12 10:14] VITALS: BP 91/63; PULSE 67; TEMP 36.8; O2SAT 94
[2016-12-12 11:46] VITALS: BP 108/63; PULSE 59; TEMP 36.9; O2SAT 95
[2017-04-07] MEDS ORDERED: PRED20TA2 PO ×2 (15:31→15:40)
[2017-04-07] MEDS ORDERED: AZIT-57 PO (15:31)
== END 2016-12-12 11:16 | disposition home or self-care (01) | DRG 195 ==
LOC: ENRESERVDT → ENRESERVTM → C.EDB 07:41 → C.MED 09:47
PROVIDERS: ADMIT Family Medicine; ATTEND Family Medicine
DX: J18.9 Pneumonia, unspecified organism (principal); F41.9 Anxiety disorder, unspecified; J45.909 Unspecified asthma, uncomplicated; I10 Essential (primary) hypertension; G89.29 Other chronic pain; M54.9 Dorsalgia, unspecified; K21.9 Gastro-esophageal reflux disease without esophagitis; M25.512 Pain in left shoulder; R33.9 Retention of urine, unspecified; D64.9 Anemia, unspecified; F17.200 Nicotine dependence, unspecified, uncomplicated; F32.9 Major depressive disorder, single episode, unspecified; Z79.82 Long term (current) use of aspirin; Z87.11 Personal history of peptic ulcer disease

== ENCOUNTER 2016-12-21 02:46 | Emergency (ER) | payer BC, OTHER ==
[~2016-12-21] VITALS: Ht 167.6 cm; Wt 72.4 kg
[~2016-12-21 02:46] MED LIST changes: +DXY100 PO; +NICO14DI9 TD
[2016-12-21 02:52] VITALS: TEMP 36.8; Ht 167.6 cm; Wt 72.4 kg
[2016-12-21] MEDS ORDERED: SODIUM CHLORIDE 0.9% 1000ML 1,000 ML IV ONE ×2 (03:15)
[2016-12-21 03:50] LABS: BASO % 1.3 %; BASO ABS # 0.08 K/uL (0-0.2); COMPLETE YES; EOS % 3.1 %; HEMATOCRIT 35.8 % (42-52); IG% 0.2 %; LYMPH % 36.7 %; LYMPH ABS # 2.26 K/uL (1.2-3.4); MEAN CELL VOLUME 85.6 fL (80-100); MEAN CORPUSCULAR HEMOGLOBIN 27.3 pg (25-34); MEAN CORPUSCULAR HGB CONC 31.8 g/dl (32-36); MEAN PLATELET VOLUME 10.1 fL (7.4-10.4); MONO % 6.7 %; PLATELET COUNT 345 K/uL (130-400); RED BLOOD COUNT 4.18 M/uL (4.7-6.1); WHITE BLOOD COUNT 6.15 K/uL (4.8-10.8)
[2016-12-21 04:08] LABS: BUN/CREATININE RATIO 17.1 (10-20); CALCIUM 7.9 mg/dl (8.5-10.1); CREATININE 0.97 mg/dl (0.60-1.40); POTASSIUM 3.6 mmol/L (3.5-5.1)
[2016-12-21 04:10] LABS: ALB/GLOB RATIO 1.2 (0.9-2)
[2016-12-21 05:09] VITALS: BP 132/87; PULSE 73; O2SAT 99
[2016-12-21 05:26] LABS: URINE APPEARANCE CLEAR (CLEAR); URINE BILIRUBIN NEG (NEG); URINE COLOR YELLOW; URINE EPITHELIAL CELL AUTO 0-5 /lpf (0-5); URINE NITRITE NEG (NEG); URINE PH 6.5 (4.5-7.5); URINE SPECIFIC GRAVITY 1.012 (1.000-1.030); UROBILINOGEN NEG (NEG); ZZURINE CULT IF INDIC CATH NO
[2016-12-21 05:28] LABS: MANUAL MICROSCOPIC REQUIRED? NO; REVIEW REQ? NO
--- NOTE | 2016-12-21 05:53 | EMERGENCY ROOM VISIT NOTE ---
History First contact with patient: 02:56 Chief Complaint: URINARY SYMPTOMS Stated Complaint: DARK URINE, TROUBLE WALKING, POSSIBLE RABDOMIOLISI Nursing Triage Summary: "I think I'm in rhabdo." "I woke up with a full bladder, cathed myself and my urine was really dark." Denies pain or discomfort related to complaint. Denies fever, n/v/d. Reports food & fluid intake are WNL. Unable to provide estimates on PO intake. Baseline the patient has difficulty voiding with dribbling & occasional incontinence. Self caths prn. Patient is drowsy & speech is slow. History of Present Illness The patient is a 56 year old male who presents to the Emergency Room with complaints of dark urine times one episode tonight. The patient is concerned for rhabdomyolysis. He has a history of this in the past. He does not report recent fall or injury. No fever, chills, nausea, vomiting, or diarrhea. He has been eating and drinking as normal. He rates his discomfort an 8/10. Review of Systems More than 10 systems were reviewed and otherwise negative with the exception of history of present illness. 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 (14) Low testosterone (15) MIGRAINE UNSPECIFIED W/O INTRACT MGRN W/O STATUS MIGRAINOSUS (16) Neuropathy (17) Tobacco abuse (18) Urinary retention Surgical Problems: (1) S/P decompression of ulnar nerve at elbow Family History Anxiety disorder MOTHER Cancer Diabetes mellitus MOTHER FH: CAD (coronary artery disease) FATHER BROTHER FH: CHF (congestive heart failure) FATHER FH: HTN (hypertension) FH: dementia FATHER FH: diabetes mellitus FH: kidney failure Heart disease Hypertension MOTHER Kidney disease SISTER Social History Smoking Status: Current Every Day Smoker Alcohol Use: none Drug Use: none Marital Status: Housing Status: lives with significant other Occupation Status: disabled Current/Historical Medications Scheduled Aspirin (Aspirin Ec), 81 MG PO DAILY Bupropion (Wellbutrin Sr), 200 MG PO BID Buspirone HCl (Buspirone HCl), 15 MG PO TID Doxycycline Hyclate (Doxycycline Hyclate), 100 MG PO BID Duloxetine HCl (Duloxetine HCl), 60 MG PO DAILY Gabapentin (Gabapentin), 800 MG PO QID Nicotine (Nicotine), 14 MG TD QAM Pantoprazole (Pantoprazole Sodium), 40 MG PO BID Sucralfate (Carafate), 1 GM PO ACHS Testosterone Cypionate (Testosterone Cypionate), 100 MG INJ 2XWK Tolterodine Tartrate (Detrol LA), 2 MG PO BID Scheduled PRN Acetamin/Butalbital/Caffeine (Fioricet), 1-2 TABS PO BID PRN for Headache Diphenoxylate/Atropine (Lomotil), 1 TAB PO UD PRN for Diarrhea Hydroxyzine HCl (Hydroxyzine Pamoate), 25 MG PO Q8 PRN for Anxiety Oxycodone HCl (Oxycodone HCl), 30 MG PO QID PRN for Pain Rizatriptan Benzoate (Rizatriptan Benzoate), 10 MG PO UD PRN for Headache Tadalafil (Cialis), 5 MG PO UD PRN for erectile dysfunction Allergies Coded Allergies: Ciprofloxacin (Verified Allergy, Intermediate, RASH, 12/21/16) rash / urticaria proximal to IV site after infusion 04/07/15 Penicillins (Verified Allergy, Intermediate, RASH, 12/21/16) Physical Exam Vital Signs Date Time Temp Pulse Resp B/P Pulse Ox O2 Delivery O2 Flow Rate FiO2 12/21/16 05:09 73 16 132/87 99 Room Air 12/21/16 02:52 36.8 88 19 119/72 99 Room Air Pain Rating (0-10): 8.0 Physical Exam VITALS: Vitals are noted on the nurse's note and reviewed by myself. Vital signs stable. GENERAL: Well-developed, well-nourished, white male, who is in no acute distress and resting comfortably. Patient is cooperative with the examination. HEAD: Normocephalic atraumatic. HEART: Regular rate and rhythm without murmurs gallops or rubs. LUNGS: Clear to auscultation bilaterally without wheezes, rales or rhonchi. No retractions or accessory muscle use. ABDOMEN: Positive normal bowel sounds x 4. Soft, nontender, without masses or organomegaly. No guarding or rebound tenderness. No CVA tenderness. MUSCULOSKELETAL: No muscle atrophy, erythema, or edema noted. Full range of motion without joint tenderness in all extremities. Medical Decision & Procedures Laboratory Results 12/21/16 03:35 Red Blood Count 4.18, Mean Corpuscular Volume 85.6, Mean Corpuscular Hemoglobin 27.3, Mean Corpuscular Hemoglobin Concent 31.8, Mean Platelet Volume 10.1, Neutrophils (%) (Auto) 52.0, Lymphocytes (%) (Auto) 36.7, Monocytes (%) (Auto) 6.7, Eosinophils (%) (Auto) 3.1, Basophils (%) (Auto) 1.3, Neutrophils # (Auto) 3.20, Lymphocytes # (Auto) 2.26, Monocytes # (Auto) 0.41, Eosinophils # (Auto) 0.19, Basophils # (Auto) 0.08 12/21/16 03:35 Test 12/21/16 03:35 12/21/16 05:02 White Blood Count 6.15 K/uL (4.8-10.8) Red Blood Count 4.18 M/uL (4.7-6.1) Hemoglobin 11.4 g/dL (14.0-18.0) Hematocrit 35.8 % (42-52) Mean Corpuscular Volume 85.6 fL (80-100) Mean Corpuscular Hemoglobin 27.3 pg (25-34) Mean Corpuscular Hemoglobin Concent 31.8 g/dl (32-36) Platelet Count 345 K/uL (130-400) Mean Platelet Volume 10.1 fL (7.4-10.4) Neutrophils (%) (Auto) 52.0 % Lymphocytes (%) (Auto) 36.7 % Monocytes (%) (Auto) 6.7 % Eosinophils (%) (Auto) 3.1 % Basophils (%) (Auto) 1.3 % Neutrophils # (Auto) 3.20 K/uL (1.4-6.5) Lymphocytes # (Auto) 2.26 K/uL (1.2-3.4) Monocytes # (Auto) 0.41 K/uL (0.11-0.59) Eosinophils # (Auto) 0.19 K/uL (0-0.5) Basophils # (Auto) 0.08 K/uL (0-0.2) RDW Standard Deviation 50.0 fL (36.4-46.3) RDW Coefficient of Variation 16.0 % (11.5-14.5) Immature Granulocyte % (Auto) 0.2 % Immature Granulocyte # (Auto) 0.01 K/uL (0.00-0.02) Erythrocyte Sedimentation Rate 14 mm/hr (0-14) Anion Gap 8.0 mmol/L (3-11) Est Creatinine Clear Calc Drug Dose 78.5 ml/min Estimated GFR () 102.2 Estimated GFR (Non- 88.1 BUN/Creatinine Ratio 17.1 (10-20) Calcium Level 7.9 mg/dl (8.5-10.1) Total Bilirubin 0.2 mg/dl (0.2-1) Aspartate Amino Transf (AST/SGOT) 12 U/L (15-37) Alanine Aminotransferase (ALT/SGPT) 29 U/L (12-78) Alkaline Phosphatase 141 U/L (45-117) Total Creatine Kinase 176 U/L (39-308) Total Protein 6.5 gm/dl (6.4-8.2) Albumin 3.5 gm/dl (3.4-5.0) Globulin 3.0 gm/dl (2.5-4.0) Albumin/Globulin Ratio 1.2 (0.9-2) Urine Color YELLOW Urine Appearance CLEAR (CLEAR) Urine pH 6.5 (4.5-7.5) Urine Specific Lillian 1.012 (1.000-1.030) Urine Protein NEG (NEG) Urine Glucose (UA) NEG (NEG) Urine Ketones NEG (NEG) Urine Occult Blood NEG (NEG) Urine Nitrite NEG (NEG) Urine Bilirubin NEG (NEG) Urine Urobilinogen NEG (NEG) Urine Leukocyte Esterase NEG (NEG) Urine WBC (Auto) 0 /hpf (0-5) Urine RBC (Auto) 0-4 /hpf (0-4) Urine Hyaline Casts (Auto) 0 /lpf (0-5) Urine Epithelial Cells (Auto) 0-5 /lpf (0-5) Urine Bacteria (Auto) NEG (NEG) Medications Administered Medications (Trade) Dose Ordered Sig/Gurpreet Route Start Time Stop Time Status Last Admin Dose Admin Sodium Chloride 1,000 ml @ 999 mls/hr Q1H1M ONCE IV 12/21/16 03:15 12/21/16 04:15 DC 12/21/16 03:30 999 MLS/HR Sodium Chloride (Nss 1000ml) 1,000 ml @ 999 mls/hr Q1H1M ONCE IV 12/21/16 03:15 12/21/16 04:15 DC 12/21/16 03:30 999 MLS/HR ED Course Physical exam and history were performed. Nursing notes and EMR were reviewed. Patient appears to have complaints of possible rhabdomyolysis. He has an extensive history of this in the past. The patient is well-known to the emergency department and this is his seventh visit to the ER in the past 30 days. IV access was established and labs were obtained. He was hydrated with 2 L normal saline. The patient's blood work is as above and was reviewed. He does not have a significantly elevated white blood cell count, significant anemia, bandemia, or gross electrolyte imbalance. Lipase and transaminases are nondiagnostic. The patient's CK level was normal. Urine is without evidence of infection. Overall the patient appears stable for discharge home. He does not appear to have a UTI or rhabdomyolysis as was his primary concern. At the end of his visit the patient requested pain medication. I reminded the patient that he is on a no narcotic treatment plan at this facility. He is to follow with his primary care physician for ongoing care and evaluation and was otherwise invited back to the ER with any new, worsening, or concerning symptoms. The chart was completed utilizing [employer] Voice Recognition Software. Grammatical errors, random word insertions, pronoun errors, and incomplete sentences are an occasional consequence of this system due to software limitations, ambient noise, and hardware issues. Any formal questions or concerns about the content, text, or information contained within the body of this dictation should be directly addressed to the provider for clarification. . Medical Decision Differential diagnosis includes, but is not limited to: Urinary tract infection , rhabdomyolysis, electrolyte imbalance, drug-seeking, and others Impression Primary Impression: Symptoms involving urinary system Departure Information Dispostion Home / Self-Care Condition GOOD Referrals Darren Flores M.D. (PCP) Forms HOME CARE DOCUMENTATION FORM, IMPORTANT VISIT INFORMATION Patient Instructions My [facility] Additional Instructions You were seen and evaluated today on an emergency basis only. This is not a substitute for, or an effort to provide, complete comprehensive medical care. It is not possible to recognize and treat all injuries or illnesses in a single emergency department visit. For this reason it is recommended that you followup with your primary care physician for ongoing care and evaluation. You are welcome to return to the emergency department anytime with new, worsening, or concerning symptoms.
--- NOTE | 2016-12-21 06:24 | EMERGENCY ROOM VISIT NOTE ---
ED Visit Note First contact with patient: 02:56 I have personally evaluated and examined this patient. I agree with assessment and plan of Alen Puga PA-C. 56 yr old male feels that he has rhabdo. GIOVANI craig.
[2017-04-07] MEDS ORDERED: AZIT-57 PO (15:31)
[2017-04-07] MEDS ORDERED: PRED20TA2 PO ×2 (15:31→15:40)
== END 2016-12-21 05:19 | disposition home or self-care (01) ==
LOC: C.EDB 02:48
DX: R82.90 Unspecified abnormal findings in urine (principal); I10 Essential (primary) hypertension; F41.9 Anxiety disorder, unspecified; F31.9 Bipolar disorder, unspecified; K21.9 Gastro-esophageal reflux disease without esophagitis; K57.30 Diverticulosis of large intestine without perforation or abscess without bleeding; D64.9 Anemia, unspecified; G89.29 Other chronic pain; F17.200 Nicotine dependence, unspecified, uncomplicated; Z87.11 Personal history of peptic ulcer disease; Z79.82 Long term (current) use of aspirin; Z79.899 Other long term (current) drug therapy; Z80.9 Family history of malignant neoplasm, unspecified; Z83.3 Family history of diabetes mellitus; Z82.49 Family history of ischemic heart disease and other diseases of the circulatory system; Z84.1 Family history of disorders of kidney and ureter; Z88.0 Allergy status to penicillin; Z88.2 Allergy status to sulfonamides

== ENCOUNTER 2017-01-09 21:41 | Emergency (ER) | payer BC ==
[~2017-01-09] VITALS: Ht 167.6 cm; Wt 75.6 kg
[2017-01-09 21:44] VITALS: TEMP 37; Ht 167.6 cm; Wt 75.6 kg
[2017-01-09] MEDS ORDERED: SODIUM CHLORIDE 0.9% 500ML 500 ML IV STA (21:58)
[2017-01-09] MEDS ORDERED: ONDANSETRON INJ 2 MG/ML 2 ML VIAL IV STA (21:58)
[2017-01-09] MEDS ORDERED: ONDA4TAB46 PO (22:30)
[2017-01-09] MEDS ORDERED: SULF800T23 PO (22:32)
[2017-01-09] MEDS ORDERED: OXYM1TAB PO (22:35)
[2017-01-09 22:40] LABS: BASO % 0.8 %; BASO ABS # 0.08 K/uL (0-0.2); COMPLETE YES; EOS % 3.5 %; HEMATOCRIT 35.7 % (42-52); IG% 0.4 %; LYMPH % 25.2 %; LYMPH ABS # 2.37 K/uL (1.2-3.4); MEAN CELL VOLUME 81.5 fL (80-100); MEAN CORPUSCULAR HEMOGLOBIN 28.5 pg (25-34); MEAN PLATELET VOLUME 9.5 fL (7.4-10.4); MONO % 7.2 %; NEUT % 62.9 %; PLATELET COUNT 243 K/uL (130-400); RED BLOOD COUNT 4.38 M/uL (4.7-6.1); WHITE BLOOD COUNT 9.42 K/uL (4.8-10.8)
[2017-01-09 22:43] LABS: ISTAT CREATININE 1.1 mg/dl (0.6-1.3); ISTAT IONIZED CALCIUM 1.14 mmol/l (1.12-1.32)
[2017-01-09] MEDS ORDERED: OPTIRAY 320 IV PRN (23:00)
[2017-01-09 23:04] LABS: BUN/CREATININE RATIO 14.2 (10-20); CREATININE 1.3 mg/dl (0.60-1.40); POTASSIUM 4.1 mmol/L (3.5-5.1)
--- NOTE | 2017-01-09 23:09 | DIAGNOSTIC IMAGING REPORT ---
ADDENDUM Addendum: A 1.1 cm hypervascular right hepatic dome lesion has been shown on prior imaging studies and is suggestive of a hemangioma. This is benign given stability. Electronically signed by: Brian Zepeda M.D. 01/09/2017 11:14 PM Dictated Date/Time: 01/09/2017 11:[address] OF THE ABDOMEN AND PELVIS WITH CONTRAST CLINICAL HISTORY: Right lower quadrant abdominal pain. COMPARISON STUDY: CT of the abdomen and pelvis June 01, 2016. TECHNIQUE: Following IV administration of 115 mL of Optiray-320, axial images of the abdomen and pelvis were obtained from the lung bases to the proximal femurs. Images were reviewed in the axial, sagittal, and coronal planes. IV contrast was administered without complication. CT DOSE: 348.05 mGy.cm FINDINGS: Visualized portions of the lower chest demonstrate multiple subacute to chronic rib fractures. Diffuse tiny hypodense hepatic lesions are too small to characterize. These are subcentimeter. These are likely benign given stability. The spleen, adrenal glands, kidneys and pancreas are normal. There is no hydronephrosis. The caliber and wall thickness of small and large bowel are normal. The appendix is normal. There is a moderate amount of stool within the colon. No pneumatosis, free air or portal venous gas is present. No suspicious osseous lesions are identified. There is mild distention of the bladder. IMPRESSION: 1. No acute process within the abdomen or pelvis. Normal appendix. 2. Moderate to large amount of stool within the colon. 3. Numerous subacute to chronic healing bilateral rib fractures. Electronically signed by: Brian Zepeda M.D. 01/09/2017 11:08 PM Dictated Date/Time: 01/09/2017 11:02 PM
[2017-01-09 23:52] LABS: URINE APPEARANCE CLEAR (CLEAR); URINE BILIRUBIN NEG (NEG); URINE COLOR DK YELLOW; URINE EPITHELIAL CELL AUTO 20-30 /lpf (0-5); URINE NITRITE POS (NEG); URINE PH 7.5 (4.5-7.5); UROBILINOGEN NEG (NEG); ZZURINE CULT IF INDIC CATH NO
[2017-01-09 23:53] LABS: MANUAL MICROSCOPIC REQUIRED? NO; REVIEW REQ? NO
[2017-01-10 00:17] VITALS: BP 116/85; PULSE 91; O2SAT 95
--- NOTE | 2017-01-10 01:08 | EMERGENCY ROOM VISIT NOTE ---
History Report prepared by Brendan: Rosemary Brunner Under the Supervision of: Dr. Vincent Fowler D.O. First contact with patient: 21:52 Chief Complaint: ABDOMINAL PAIN Stated Complaint: LOWER RIGHT ABD. PAIN. DR SAID TO COME TO ER History of Present Illness The patient is a 56 year old male who presents to the Emergency Room with complaints of worsening right lower abdominal pain starting 2 hours ago. He reports that he was trying to insert his catheter today and had some difficulty. He had to use more force than usual to get it in. 2 hours ago, he started having a dull pain in his right lower abdomen. It has been worsening since then. He intermittently gets a sharp pain up into his abdomen. He is concerned about appendicitis. He denies any nausea, vomiting, or fever. He denies any bladder discomfort. His last bowel movement was earlier today and it was normal. He has been on Bactrim for UTI since 3 days ago. He denies any history of abdominal surgeries. He still has his gallbladder and appendix. Source of History: patient Onset: 2 hours ago Position: abdomen (RLQ) Quality: dull Timing: worsening Associated Symptoms: No fevers, No nausea, No vomiting Review of Systems See HPI for pertinent positives & negatives. A total of 10 systems reviewed and were otherwise negative. 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 (14) Low testosterone (15) MIGRAINE UNSPECIFIED W/O INTRACT MGRN W/O STATUS MIGRAINOSUS (16) Neuropathy (17) Tobacco abuse (18) Urinary retention Surgical Problems: (1) S/P decompression of ulnar nerve at elbow Family History Anxiety disorder MOTHER Cancer Diabetes mellitus MOTHER FH: CAD (coronary artery disease) FATHER BROTHER FH: CHF (congestive heart failure) FATHER FH: HTN (hypertension) FH: dementia FATHER FH: diabetes mellitus FH: kidney failure Heart disease Hypertension MOTHER Kidney disease SISTER Social History Smoking Status: Current Every Day Smoker Alcohol Use: none Drug Use: none Marital Status: Housing Status: lives with significant other Occupation Status: disabled Current/Historical Medications Scheduled Aspirin (Aspirin Ec), 81 MG PO DAILY Bupropion (Wellbutrin Sr), 200 MG PO BID Buspirone HCl (Buspirone HCl), 15 MG PO TID Doxycycline Hyclate (Doxycycline Hyclate), 100 MG PO BID Duloxetine HCl (Duloxetine HCl), 60 MG PO DAILY Gabapentin (Gabapentin), 800 MG PO QID Nicotine (Nicotine), 14 MG TD QAM Pantoprazole (Pantoprazole Sodium), 40 MG PO BID Sucralfate (Carafate), 1 GM PO ACHS Sulfa/Trimethoprim (Bactrim Ds 800MG/160MG), 1 TAB PO BID Testosterone Cypionate (Testosterone Cypionate), 100 MG INJ 2XWK Tolterodine Tartrate (Detrol LA), 2 MG PO BID Scheduled PRN Acetamin/Butalbital/Caffeine (Fioricet), 1-2 TABS PO BID PRN for Headache Diphenoxylate/Atropine (Lomotil), 1 TAB PO UD PRN for Diarrhea Hydroxyzine HCl (Hydroxyzine Pamoate), 25 MG PO Q8 PRN for Anxiety Ondansetron Hcl (Zofran), 4 MG PO Q8 PRN for Nausea Oxycodone HCl (Oxycodone HCl), 30 MG PO QID PRN for Pain Oxymorphone Hcl (Oxymorphone Hydrochloride), 15 MG PO QID PRN for Pain Rizatriptan Benzoate (Rizatriptan Benzoate), 10 MG PO UD PRN for Headache Tadalafil (Cialis), 5 MG PO UD PRN for erectile dysfunction Allergies Coded Allergies: Ciprofloxacin (Verified Allergy, Intermediate, RASH, 12/21/16) rash / urticaria proximal to IV site after infusion 04/07/15 Penicillins (Verified Allergy, Intermediate, RASH, 12/21/16) Physical Exam Vital Signs Date Time Temp Pulse Resp B/P (MAP) Pulse Ox O2 Delivery O2 Flow Rate FiO2 01/10/17 00:17 91 18 116/85 95 01/09/17 23:44 88 18 137/88 96 Room Air 01/09/17 21:44 37.0 108 18 166/84 98 Room Air Physical Exam GENERAL: sitting up in bed, disheveled, no acute distress, nontoxic EYE EXAM: normal conjunctiva OROPHARYNX: no exudate, no erythema, lips, buccal mucosa, and tongue normal and mucous membranes are moist NECK: supple, no nuchal rigidity, no adenopathy, non-tender LUNGS: Clear to auscultation. Normal chest wall mechanics HEART: no murmurs, S1 normal and S2 normal ABDOMEN: abdomen soft, faint diffuse tenderness slightly worse in the RLQ, normo -active bowel sounds, no masses, no rebound or guarding. BACK: Back is symmetrical on inspection and there is no deformity, no midline tenderness, no CVA tenderness. SKIN: no rashes and no bruising UPPER EXTREMITIES: upper extremities are grossly normal. LOWER EXTREMITIES: No pitting edema. NEURO EXAM: Normal sensorium Medical Decision & Procedures ER Provider Diagnostic Interpretation: Radiology results as stated below per my review and the radiologist's interpretation: ADDENDUM Addendum: A 1.1 cm hypervascular right hepatic dome lesion has been shown on prior imaging studies and is suggestive of a hemangioma. This is benign given stability. Electronically signed by: Brian Zepeda M.D. 01/09/2017 11:14 PM Dictated Date/Time: 01/09/2017 11:[address] OF THE ABDOMEN AND PELVIS WITH CONTRAST CLINICAL HISTORY: Right lower quadrant abdominal pain. COMPARISON STUDY: CT of the abdomen and pelvis June 01, 2016. TECHNIQUE: Following IV administration of 115 mL of Optiray-320, axial images of the abdomen and pelvis were obtained from the lung bases to the proximal femurs. Images were reviewed in the axial, sagittal, and coronal planes. IV contrast was administered without complication. CT DOSE: 348.05 mGy.cm FINDINGS: Visualized portions of the lower chest demonstrate multiple subacute to chronic rib fractures. Diffuse tiny hypodense hepatic lesions are too small to characterize. These are subcentimeter. These are likely benign given stability. The spleen, adrenal glands, kidneys and pancreas are normal. There is no hydronephrosis. The caliber and wall thickness of small and large bowel are normal. The appendix is normal. There is a moderate amount of stool within the colon. No pneumatosis, free air or portal venous gas is present. No suspicious osseous lesions are identified. There is mild distention of the bladder. IMPRESSION: 1. No acute process within the abdomen or pelvis. Normal appendix. 2. Moderate to large amount of stool within the colon. 3. Numerous subacute to chronic healing bilateral rib fractures. Electronically signed by: Brian Zepeda M.D. 01/09/2017 11:08 PM Dictated Date/Time: 01/09/2017 11:02 PM Laboratory Results 01/09/17 22:20 Red Blood Count 4.38, Mean Corpuscular Volume 81.5, Mean Corpuscular Hemoglobin 28.5, Mean Corpuscular Hemoglobin Concent 35.0, Mean Platelet Volume 9.5, Neutrophils (%) (Auto) 62.9, Lymphocytes (%) (Auto) 25.2, Monocytes (%) (Auto) 7.2, Eosinophils (%) (Auto) 3.5, Basophils (%) (Auto) 0.8, Neutrophils # (Auto) 5.92, Lymphocytes # (Auto) 2.37, Monocytes # (Auto) 0.68, Eosinophils # (Auto) 0.33, Basophils # (Auto) 0.08 01/09/17 22:20 Test 01/09/17 22:20 01/09/17 22:29 01/09/17 23:36 White Blood Count 9.42 K/uL (4.8-10.8) Red Blood Count 4.38 M/uL (4.7-6.1) Hemoglobin 12.5 g/dL (14.0-18.0) Hematocrit 35.7 % (42-52) Mean Corpuscular Volume 81.5 fL (80-100) Mean Corpuscular Hemoglobin 28.5 pg (25-34) Mean Corpuscular Hemoglobin Concent 35.0 g/dl (32-36) Platelet Count 243 K/uL (130-400) Mean Platelet Volume 9.5 fL (7.4-10.4) Neutrophils (%) (Auto) 62.9 % Lymphocytes (%) (Auto) 25.2 % Monocytes (%) (Auto) 7.2 % Eosinophils (%) (Auto) 3.5 % Basophils (%) (Auto) 0.8 % Neutrophils # (Auto) 5.92 K/uL (1.4-6.5) Lymphocytes # (Auto) 2.37 K/uL (1.2-3.4) Monocytes # (Auto) 0.68 K/uL (0.11-0.59) Eosinophils # (Auto) 0.33 K/uL (0-0.5) Basophils # (Auto) 0.08 K/uL (0-0.2) RDW Standard Deviation 48.1 fL (36.4-46.3) RDW Coefficient of Variation 16.1 % (11.5-14.5) Immature Granulocyte % (Auto) 0.4 % Immature Granulocyte # (Auto) 0.04 K/uL (0.00-0.02) Est Creatinine Clear Calc Drug Dose 58.6 ml/min Estimated GFR () 71.7 Estimated GFR (Non- 61.9 BUN/Creatinine Ratio 14.2 (10-20) Calcium Level 9.0 mg/dl (8.5-10.1) Total Bilirubin 0.2 mg/dl (0.2-1) Direct Bilirubin 0.1 mg/dl (0-0.2) Aspartate Amino Transf (AST/SGOT) 24 U/L (15-37) Alanine Aminotransferase (ALT/SGPT) 34 U/L (12-78) Alkaline Phosphatase 119 U/L (45-117) Total Protein 7.4 gm/dl (6.4-8.2) Albumin 4.4 gm/dl (3.4-5.0) Lipase 264 U/L (73-393) Bedside Hemoglobin 15.0 g/dl (14.0-18.0) Bedside Hematocrit 44 % (42-52) Bedside Sodium 132 mEq/L (135-144) Bedside Potassium 4.2 mEq/L (3.3-5.0) Bedside Chloride 95 mEq/L (101-112) Bedside Total CO2 25 mEq/l (24-31) Anion Gap 18.0 mmol/L (16-25) Bedside Blood Urea Nitrogen 20 mg/dl (7-18) Bedside Creatinine 1.1 mg/dl (0.6-1.3) Bedside Glucose (other) 96 mg/dl (70-99) Bedside Ionized Calcium (Jasiel) 1.14 mmol/l (1.12-1.32) Urine Color DK YELLOW Urine Appearance CLEAR (CLEAR) Urine pH 7.5 (4.5-7.5) Urine Specific [place] 1.040 (1.000-1.030) Urine Protein NEG (NEG) Urine Glucose (UA) NEG (NEG) Urine Ketones NEG (NEG) Urine Occult Blood NEG (NEG) Urine Nitrite POS (NEG) Urine Bilirubin NEG (NEG) Urine Urobilinogen NEG (NEG) Urine Leukocyte Esterase SMALL (NEG) Urine WBC (Auto) 1-5 /hpf (0-5) Urine RBC (Auto) 0-4 /hpf (0-4) Urine Hyaline Casts (Auto) 0 /lpf (0-5) Urine Epithelial Cells (Auto) 20-30 /lpf (0-5) Urine Bacteria (Auto) NEG (NEG) Laboratory results per my review. Medications Administered Medications (Trade) Dose Ordered Sig/Gurpreet Route Start Time Stop Time Status Last Admin Dose Admin Sodium Chloride 500 ml @ 999 mls/hr Q31M STAT IV 01/09/17 21:58 01/09/17 22:28 DC 01/09/17 22:37 999 MLS/HR ED Course ED COURSE: Vital signs were reviewed and showed hypertension, tachycardia. The patients medical record was reviewed The above diagnostic studies were performed and reviewed. ED treatments and interventions as stated above. 2154: The patient was evaluated in room B10. A complete history and physical examination was performed. 2158: Zofran Inj 4 mg IV, NSS 500 ml @ 999 mls/hr IV. 2334: I reevaluated the patient. I updated him on the results. 0006: Upon reevaluation, the patient is resting comfortably.I discussed my findings with the patient and he understands and agrees with the treatment plan. Based on the patients age, coexisting illnesses, exam and lab findings the decision to treat as an outpatient was made. The patient remained stable while under my care. The patient appeared well at the time of discharge. Medical Decision Differential diagnoses includes but is not limited to gastritis, peptic ulcer disease, GERD, gallbladder disease, pancreatitis, small bowel obstruction, acute coronary syndrome, pericarditis, ischemic bowel, irritable bowel disease, irritable bowel syndrome, appendicitis, diverticulitis, malignancy, hernia, urinary tract infection, torsion, perforation, trauma, infectious. Medication Reconciliation: I attest that I have personally reviewed the patient' s current medication list. Blood pressure screening: Patient was found to have an elevated blood pressure and was referred to their primary doctor for recheck and further treatment. Patient is a 56-year-old male who presents the ER for right lower quadrant abdominal pain which started earlier today. Labs show no significant leukocytosis or anemia. BMP along with LFTs, bilirubin and lipase are unremarkable. UA has nitrates, leuks and 30 epithelial cells. Patient is currently on Bactrim and Pyridium. CT of abdomen and pelvis was negative. Stable hemangioma. Patient was discharged follow with his PCP and continue Bactrim for his UTI. Discussed with Pt concerning signs and symptoms to watch out for. Pt was instructed to follow up with their PCP and discussed with the patient their option to return to the ED at anytime for persistent or worsening symptoms. The appropriate anticipatory guidance and out-patient management, including indications for return to the emergency department, were explained at length to the patient and understood. Impression Primary Impression: RLQ abdominal pain Additional Impression: UTI (urinary tract infection) Scribe Attestation The scribe's documentation has been prepared under my direction and personally reviewed by me in its entirety. I confirm that the note above accurately reflects all work, treatment, procedures, and medical decision making performed by me. Departure Information Dispostion Home / Self-Care Referrals Darren Flores M.D. (PCP) Forms Call Back Authorization, HOME CARE DOCUMENTATION FORM, IMPORTANT VISIT INFORMATION Patient Instructions Abdominal Pain - [facility], [facility] Additional Instructions Please follow up with your primary care doctor with in the next 24 hours. Any worsening of your symptoms, please return to the ED immediately. This includes fevers greater than 100.4, worsening pain, passing out, bloody stool, vomiting blood, or any other concerning signs or symptoms from your standpoint. Please take antibiotic as previously prescribed. Problem Qualifiers Additional Impression: UTI (urinary tract infection) Urinary tract infection type: site unspecified Hematuria presence: with hematuria Qualified Codes: N39.0 - Urinary tract infection, site not specified ; R31.9 - Hematuria, unspecified
[2017-04-07] MEDS ORDERED: PRED20TA2 PO ×2 (15:31→15:40)
[2017-04-07] MEDS ORDERED: AZIT-57 PO (15:31)
== END 2017-01-10 00:17 | disposition home or self-care (01) ==
LOC: C.EDB 21:42
DX: R10.31 Right lower quadrant pain (principal); N39.0 Urinary tract infection, site not specified; R31.9 Hematuria, unspecified; F32.9 Major depressive disorder, single episode, unspecified; J45.909 Unspecified asthma, uncomplicated; F41.9 Anxiety disorder, unspecified; I10 Essential (primary) hypertension; K27.7 Chronic peptic ulcer, site unspecified, without hemorrhage or perforation; K21.9 Gastro-esophageal reflux disease without esophagitis; F17.200 Nicotine dependence, unspecified, uncomplicated; Z87.01 Personal history of pneumonia (recurrent); Z98.890 Other specified postprocedural states; Z81.8 Family history of other mental and behavioral disorders; Z83.3 Family history of diabetes mellitus; Z82.49 Family history of ischemic heart disease and other diseases of the circulatory system; Z84.1 Family history of disorders of kidney and ureter; Z79.82 Long term (current) use of aspirin; Z79.899 Other long term (current) drug therapy

== ENCOUNTER 2017-01-28 00:37 | Emergency (ER) | payer BC ==
[~2017-01-28] VITALS: Ht 167.6 cm; Wt 76.1 kg
[~2017-01-28 00:37] MED LIST changes: +ONDA4TAB46 PO; +OXYM1TAB PO; -PANT40TA2 PO; +PRT/40 PO; +SULF800T23 PO
[2017-01-28 00:40] VITALS: TEMP 36.9; Ht 167.6 cm; Wt 76.1 kg
[2017-01-28] MEDS ORDERED: SODIUM CHLORIDE 0.9% 1000ML 1,000 ML IV STA (00:54)
--- NOTE | 2017-01-28 01:07 | EMERGENCY ROOM VISIT NOTE ---
History Report prepared by Brendan: Celso Manzo Under the Supervision of: Dr. Dayana Cha D.O. First contact with patient: 00:46 Chief Complaint: WEAKNESS Stated Complaint: DARK URINE,TROUBLE WALKING History of Present Illness The patient is a 56 year old male who presents to the Emergency Room with complaints of dark urine and weakness that the patient first started to notice a few days ago. He denies any burning with urination or abdominal pain. The patient notes that he also started to experience severe left sided lower back pain a few days ago and is concerned that he currently has Rhabdo. He states that his Rhabdo commonly onsets with severe lower back pain. He also complains of having a poor appetite lately, but notes that he is taking Zofran. He has also been prescribed Oxycodone 4 times per day and was recently switched from Oxymorphone. Source of History: patient Onset: A few days [employer] Position: other (Genitourinary) Quality: other (Dark urine) Associated Symptoms: + back pain, + weakness, No abdominal pain Review of Systems See HPI for pertinent positives & negatives. A total of 10 systems reviewed and were otherwise negative. 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 (14) Low testosterone (15) MIGRAINE UNSPECIFIED W/O INTRACT MGRN W/O STATUS MIGRAINOSUS (16) Neuropathy (17) Tobacco abuse (18) Urinary retention Surgical Problems: (1) S/P decompression of ulnar nerve at elbow Family History Anxiety disorder MOTHER Cancer Diabetes mellitus MOTHER FH: CAD (coronary artery disease) FATHER BROTHER FH: CHF (congestive heart failure) FATHER FH: HTN (hypertension) FH: dementia FATHER FH: diabetes mellitus FH: kidney failure Heart disease Hypertension MOTHER Kidney disease SISTER Social History Smoking Status: Current Every Day Smoker Alcohol Use: none Drug Use: none Marital Status: Housing Status: lives with significant other Occupation Status: disabled Current/Historical Medications Scheduled Aspirin (Aspirin Ec), 81 MG PO DAILY Bupropion (Wellbutrin Sr), 200 MG PO BID Buspirone Hcl (Buspirone Hcl), 30 MG PO TID Duloxetine HCl (Duloxetine HCl), 60 MG PO DAILY Gabapentin (Gabapentin), 800 MG PO QID Meloxicam (Mobic), 7.5 MG PO BID Pantoprazole (Pantoprazole Sodium), 40 MG PO BID Sucralfate (Carafate), 1 GM PO ACHS Testosterone Cypionate (Testosterone Cypionate), 100 MG INJ 2XWK Tolterodine Tartrate (Detrol LA), 2 MG PO BID Scheduled PRN Acetamin/Butalbital/Caffeine (Fioricet), 1-2 TABS PO BID PRN for Headache Cyclobenzaprine HCl (Cyclobenzaprine HCl), 10 MG PO TID PRN for Muscle Spasms Diphenoxylate/Atropine (Lomotil), 1 TAB PO UD PRN for Diarrhea Hydroxyzine HCl (Hydroxyzine Pamoate), 25 MG PO Q8 PRN for Anxiety Ondansetron Hcl (Zofran), 4 MG PO Q8 PRN for Nausea Oxycodone Hcl (Oxycodone Hcl), 20 MG PO QID PRN for Pain Rizatriptan Benzoate (Rizatriptan Benzoate), 10 MG PO UD PRN for Headache Tadalafil (Cialis), 5 MG PO UD PRN for erectile dysfunction Allergies Coded Allergies: Ciprofloxacin (Verified Allergy, Intermediate, RASH, 01/28/17) rash / urticaria proximal to IV site after infusion 04/07/15 Penicillins (Verified Allergy, Intermediate, RASH, 01/28/17) Physical Exam Vital Signs Date Time Temp Pulse Resp B/P (MAP) Pulse Ox O2 Delivery O2 Flow Rate FiO2 01/28/17 02:15 82 18 111/65 95 01/28/17 00:40 36.9 107 18 111/71 96 Room Air Physical Exam General: The patient appears uncomfortable on exam. He kept his eyes closed during my questioning. HEENT: Head - normocephalic and atraumatic Pupils are equal, round, and reactive to light. Extraocular eye muscles are intact, and sclera are anicteric. Nose - moist nasal mucosa without discharge. Mouth - moist buccal mucosa. Oropharynx is nonerythematous and there is no tonsillar exudate or edema noted. Neck: Supple; no JVD, nuchal rigidity, cervical lymphadenopathy. Heart: Regular rate and rhythm. There is a normal S1 and S2 with no murmurs, clicks, or gallops appreciated. Lungs: Clear to auscultation bilaterally with no wheezes, rales, or rhonchi. Abdomen: Soft, completely nontender, nondistended, with good bowel sounds. There are no palpable pulsatile masses or hepatosplenomegaly. There is no guarding, rigidity, or rebound noted. Extremities: There is a skin abrasion to the left elbow. No evidence of cyanosis , clubbing, or edema. There are easily palpable peripheral pulses. Skin: warm and dry. Poor turgor and no rashes. There is an abrasion to the left elbow. Medical Decision & Procedures Laboratory Results 01/28/17 01:09 Red Blood Count 4.20, Mean Corpuscular Volume 83.1, Mean Corpuscular Hemoglobin 27.1, Mean Corpuscular Hemoglobin Concent 32.7, Mean Platelet Volume 10.2, Neutrophils (%) (Auto) 49.6, Lymphocytes (%) (Auto) 36.6, Monocytes (%) (Auto) 10.6, Eosinophils (%) (Auto) 2.3, Basophils (%) (Auto) 0.6, Neutrophils # (Auto ) 3.22, Lymphocytes # (Auto) 2.38, Monocytes # (Auto) 0.69, Eosinophils # (Auto ) 0.15, Basophils # (Auto) 0.04 01/28/17 01:09 Test 01/28/17 01:09 White Blood Count 6.50 K/uL (4.8-10.8) Red Blood Count 4.20 M/uL (4.7-6.1) Hemoglobin 11.4 g/dL (14.0-18.0) Hematocrit 34.9 % (42-52) Mean Corpuscular Volume 83.1 fL (80-100) Mean Corpuscular Hemoglobin 27.1 pg (25-34) Mean Corpuscular Hemoglobin Concent 32.7 g/dl (32-36) Platelet Count 300 K/uL (130-400) Mean Platelet Volume 10.2 fL (7.4-10.4) Neutrophils (%) (Auto) 49.6 % Lymphocytes (%) (Auto) 36.6 % Monocytes (%) (Auto) 10.6 % Eosinophils (%) (Auto) 2.3 % Basophils (%) (Auto) 0.6 % Neutrophils # (Auto) 3.22 K/uL (1.4-6.5) Lymphocytes # (Auto) 2.38 K/uL (1.2-3.4) Monocytes # (Auto) 0.69 K/uL (0.11-0.59) Eosinophils # (Auto) 0.15 K/uL (0-0.5) Basophils # (Auto) 0.04 K/uL (0-0.2) RDW Standard Deviation 49.5 fL (36.4-46.3) RDW Coefficient of Variation 16.4 % (11.5-14.5) Immature Granulocyte % (Auto) 0.3 % Immature Granulocyte # (Auto) 0.02 K/uL (0.00-0.02) Anion Gap 6.0 mmol/L (3-11) Est Creatinine Clear Calc Drug Dose 69.2 ml/min Estimated GFR () 87.7 Estimated GFR (Non- 75.7 BUN/Creatinine Ratio 12.3 (10-20) Calcium Level 8.6 mg/dl (8.5-10.1) Total Bilirubin 0.3 mg/dl (0.2-1) Direct Bilirubin 0.1 mg/dl (0-0.2) Aspartate Amino Transf (AST/SGOT) 16 U/L (15-37) Alanine Aminotransferase (ALT/SGPT) 22 U/L (12-78) Alkaline Phosphatase 80 U/L (45-117) Total Creatine Kinase 383 U/L (39-308) Total Protein 6.7 gm/dl (6.4-8.2) Albumin 3.7 gm/dl (3.4-5.0) Laboratory results per my review. Medications Administered Medications (Trade) Dose Ordered Sig/Gurpreet Route Start Time Stop Time Status Last Admin Dose Admin Sodium Chloride 1,000 ml @ 999 mls/hr Q1H1M STAT IV 01/28/17 00:54 01/28/17 01:54 DC 01/28/17 01:12 999 MLS/HR Procedure Medications Ordered: Sodium Chloride. ED Course 0049: Past medical records reviewed. The patient was evaluated in room B7. A complete history and physical exam was performed. An IV lock was initiated and labs were drawn as above. 0054: Ordered Sodium Chloride 1000 mL @ 999 mL/hr IV. 0155: I reevaluated the patient at this time and discussed his results. The patient is in agreement with the treatment plan and is ready to be discharged home. Medical Decision The patient is a 56 year old male who presents to the Emergency Department for dark urine, weakness, and back pain. Differential Diagnosis include; rhabdomyolysis, dehydration, trauma secondary to falls. Laboratory Studies were reviewed and show; No leukocytosis, mild anemia with hemoglobin of 11.4, normal renal function, Glucose of 101, LFTs normal, Total CKA is slightly elevated at 383. I attest that I have personally reviewed the patient's current medication list. Patient was found to have normal blood pressure on screening and does not require follow-up. The patient presented here with left-sided low back pain, weakness and dark urine. He was concerned for the possibility of rhabdomyolysis as he has a history of this. His rhabdo often times presents with low back pain. Total CPK was only slightly elevated. Certainly not concerning for rhabdomyolysis. The patient was satisfied with his results and insisted on discharge home. I encouraged him to keep himself well-hydrated and avoid falls as much as possible. Impression Primary Impression: Low back pain Additional Impression: Weakness Scribe Attestation The scribe's documentation has been prepared under my direction and personally reviewed by me in its entirety. I confirm that the note above accurately reflects all work, treatment, procedures, and medical decision making performed by me. Departure Information Dispostion Home / Self-Care Referrals Darren Flores M.D. (PCP) Forms HOME CARE DOCUMENTATION FORM, IMPORTANT VISIT INFORMATION Patient Instructions My [facility] Additional Instructions Rest. Increase your fluid intake Problem Qualifiers Primary Impression: Low back pain Chronicity: acute Back pain laterality: left
[2017-01-28 01:19] LABS: BASO % 0.6 %; BASO ABS # 0.04 K/uL (0-0.2); COMPLETE YES; EOS % 2.3 %; HEMATOCRIT 34.9 % (42-52); IG% 0.3 %; LYMPH % 36.6 %; LYMPH ABS # 2.38 K/uL (1.2-3.4); MEAN CELL VOLUME 83.1 fL (80-100); MEAN CORPUSCULAR HEMOGLOBIN 27.1 pg (25-34); MEAN CORPUSCULAR HGB CONC 32.7 g/dl (32-36); MEAN PLATELET VOLUME 10.2 fL (7.4-10.4); MONO % 10.6 %; NEUT % 49.6 %; PLATELET COUNT 300 K/uL (130-400)
[2017-01-28 01:39] LABS: BUN/CREATININE RATIO 12.3 (10-20); CALCIUM 8.6 mg/dl (8.5-10.1); CREATININE 1.1 mg/dl (0.60-1.40); POTASSIUM 3.9 mmol/L (3.5-5.1)
[2017-01-28] MEDS ORDERED: CYCL10TA7 PO (01:50)
[2017-01-28] MEDS ORDERED: OXYC20TA32 PO (01:50)
[2017-01-28] MEDS ORDERED: BUSP30TA2 PO (01:50)
[2017-01-28] MEDS ORDERED: MELO7.5T5 PO (01:50)
[2017-01-28 02:15] VITALS: BP 111/65; PULSE 82; O2SAT 95
[2017-04-07] MEDS ORDERED: PRED20TA2 PO ×2 (15:31→15:40)
[2017-04-07] MEDS ORDERED: ZTHM250 PO (15:31)
== END 2017-01-28 02:09 | disposition home or self-care (01) ==
LOC: C.EDB 00:39
DX: M54.5 Low back pain (principal); R53.1 Weakness; D64.9 Anemia, unspecified; J45.909 Unspecified asthma, uncomplicated; I10 Essential (primary) hypertension; F31.9 Bipolar disorder, unspecified; K57.90 Diverticulosis of intestine, part unspecified, without perforation or abscess without bleeding; K21.9 Gastro-esophageal reflux disease without esophagitis; Z83.3 Family history of diabetes mellitus; Z82.49 Family history of ischemic heart disease and other diseases of the circulatory system; F17.200 Nicotine dependence, unspecified, uncomplicated; Z79.82 Long term (current) use of aspirin

== ENCOUNTER 2017-04-01 15:10 | Inpatient (IN) | payer BC, OTHER ==
[~2017-04-01] VITALS: Ht 167.6 cm; Wt 76.7 kg
[~2017-04-01 15:10] MED LIST changes: -BSP15 PO; +BUSP30TA2 PO; +CYCL10TA7 PO; -DXY100 PO; +MELO7.5T5 PO; -NICO14DI9 TD; +OXYC20TA32 PO; -OXYM1TAB PO; -RXC30 PO; -SULF800T23 PO
[2017-04-01] MEDS ORDERED: SODIUM CHLORIDE 0.9% 1000ML 1,000 ML IV SCH (15:30)
[2017-04-01 15:39] LABS: BASO % 0.2 %; BASO ABS # 0.02 K/uL (0-0.2); COMPLETE YES; EOS % 0.4 %; HEMATOCRIT 31.5 % (42-52); IG% 0.2 %; LYMPH % 6.5 %; LYMPH ABS # 0.85 K/uL (1.2-3.4); MEAN CELL VOLUME 85.1 fL (80-100); MEAN CORPUSCULAR HEMOGLOBIN 27.6 pg (25-34); MEAN CORPUSCULAR HGB CONC 32.4 g/dl (32-36); MEAN PLATELET VOLUME 10.2 fL (7.4-10.4); MONO % 7.5 %; NEUT % 85.2 %; PLATELET COUNT 239 K/uL (130-400); WHITE BLOOD COUNT 13.16 K/uL (4.8-10.8)
[2017-04-01 15:51] LABS: ALT/SGPT 58 U/L (12-78); BLOOD UREA NITROGEN 16 mg/dl (7-18); BUN/CREATININE RATIO 16.4 (10-20); CALCIUM 8.6 mg/dl (8.5-10.1); CARBON DIOXIDE 26 mmol/L (21-32); CHLORIDE 96 mmol/L (98-107); GLUCOSE 109 mg/dl (70-99); POTASSIUM 3.9 mmol/L (3.5-5.1); SODIUM 131 mmol/L (136-145)
[2017-04-01 15:53] LABS: PARTIAL THROMBOPLASTIN RATIO 1.2; PROTHROMBIN TIME (PATIENT) 10.4 SECONDS (9.0-12.0)
[2017-04-01] MEDS ORDERED: SULF1TAB92 PO (15:58)
[2017-04-01] MEDS ORDERED: AMPH20TA2 PO (15:58)
[2017-04-01] MEDS ORDERED: METH500T37 PO (15:58)
[2017-04-01] MEDS ORDERED: MIRT15TA2 PO (15:58)
[2017-04-01 16:06] LABS: ALB/GLOB RATIO 0.8 (0.9-2); ALKALINE PHOSPHATASE 123 U/L (45-117); AST/SGOT 82 U/L (15-37)
--- NOTE | 2017-04-01 16:06 | DIAGNOSTIC IMAGING REPORT ---
CHEST ONE VIEW PORTABLE HISTORY: 57 years-old Male cough, fever acute cough and fever COMPARISON: Chest radiographs 12/09/2016 and 11/22/2016. TECHNIQUE: Portable upright AP view of the chest FINDINGS: Cardiac silhouette is within normal limits. Multifocal mixed interstitial and alveolar opacities are present within the bilateral lungs with focus of alveolar opacities within the left lower lobe. No pneumothorax or pleural effusion. There is also mild bronchial wall thickening suggesting a component of bronchitis. The bones are grossly intact. IMPRESSION: Multifocal multilobar mixed interstitial and alveolar opacities with airspace consolidation greatest at the left lower lobe suggests pneumonia. The above report was generated using voice recognition software. It may contain grammatical, syntax or spelling errors. Electronically signed by: Alfie Petty M.D. 04/01/2017 4:04 PM Dictated Date/Time: 04/01/2017 4:02 PM
[2017-04-01] MEDS ORDERED: CEFTRIAXONE SOD INJ 1 GM ADDVIAL IV STA (16:12)
[2017-04-01] MEDS ORDERED: DOXYCYCLINE IV 100 MG in DEXTROSE 5% 100ML 100 ML IV STA (16:12)
[2017-04-01 17:00] LABS: URINE APPEARANCE CLEAR (CLEAR); URINE COLOR DK YELLOW; URINE EPITHELIAL CELL AUTO 20-30 /lpf (0-5); URINE NITRITE NEG (NEG); URINE SPECIFIC GRAVITY 1.027 (1.000-1.030); UROBILINOGEN NEG (NEG)
[2017-04-01 17:01] LABS: MANUAL MICROSCOPIC REQUIRED? NO; REVIEW REQ? NO
[2017-04-01 17:02] LABS: URINE BILIRUBIN NEG (NEG)
--- NOTE | 2017-04-01 17:08 | EMERGENCY ROOM VISIT NOTE ---
ED Visit Note First contact with patient: 15:12 Resident Physician Supervision Note: I interviewed and examined the patient. Discussed with Dr. Tolentino and agree with findings and plan as documented in the note. Documented By: Remigio Solis Problem List Medical Problems: (1) Anemia Status: Chronic (2) ANXIETY STATE NOS Status: Chronic (3) Asthma Status: Chronic (4) BENIGN HYPERTENSION Status: Chronic (5) BIPOLAR DISORDER, UNSPECIFIED Status: Chronic (6) Chronic back pain Status: Chronic (7) Chronic low back pain Status: Chronic (8) CHRONIC PEPTIC ULCER NOS Status: Chronic (9) DEPRESSIVE DISORDER NEC Status: Chronic (10) DIVERTICULOSIS COLON (W/O MENT OF HEMORRHAGE) Status: Chronic (11) ESOPHAGEAL REFLUX Status: Chronic (12) IDIOPATHIC TRANSVERSE MYELITIS Status: Chronic (13) Low testosterone Status: Chronic (14) MIGRAINE UNSPECIFIED W/O INTRACT MGRN W/O STATUS MIGRAINOSUS Status: Chronic (15) Neuropathy Status: Chronic (16) Tobacco abuse Status: Chronic (17) Urinary retention Status: Chronic Surgical Problems: (1) S/P decompression of ulnar nerve at elbow Status: Resolved Current/Historical Medications Scheduled Amphetamine-Dextroamphetamine 20MG (Adderall 20MG), 20 MG PO DAILY Aspirin (Aspirin Ec), 81 MG PO DAILY Bupropion (Wellbutrin Sr), 200 MG PO BID Buspirone Hcl (Buspirone Hcl), 30 MG PO TID Duloxetine HCl (Duloxetine HCl), 60 MG PO DAILY Gabapentin (Gabapentin), 800 MG PO QID Meloxicam (Mobic), 7.5 MG PO BID Methocarbamol (Robaxin), 500 MG PO TID Mirtazapine Soltab (Remeron Soltab), 15 MG PO HS Pantoprazole (Pantoprazole Sodium), 40 MG PO BID Testosterone Cypionate (Testosterone Cypionate), 100 MG INJ WK Tolterodine Tartrate (Detrol LA), 2 MG PO BID Trimethoprim/Sulfamethoxazole (Bactrim 400MG/80MG), Unknown Dose PO Q12H Scheduled PRN Acetamin/Butalbital/Caffeine (Fioricet), 1-2 TABS PO BID PRN for Headache Diphenoxylate/Atropine (Lomotil), 1 TAB PO UD PRN for Diarrhea Hydroxyzine HCl (Hydroxyzine Pamoate), 25 MG PO Q8 PRN for Anxiety Ondansetron Hcl (Zofran), 4 MG PO Q8 PRN for Nausea Oxycodone Hcl (Oxycodone Hcl), 20 MG PO QID PRN for Pain Rizatriptan Benzoate (Rizatriptan Benzoate), 10 MG PO UD PRN for Headache Tadalafil (Cialis), 5 MG PO UD PRN for erectile dysfunction Allergies Coded Allergies: Ciprofloxacin (Verified Allergy, Intermediate, RASH, 04/01/17) rash / urticaria proximal to IV site after infusion 04/07/15 Penicillins (Verified Allergy, Intermediate, RASH, 04/01/17) Vital Signs Date Time Temp Pulse Resp B/P (MAP) Pulse Ox O2 Delivery O2 Flow Rate FiO2 04/01/17 16:41 78 20 116/71 96 Nasal Cannula 2.0 04/01/17 15:21 106 04/01/17 15:15 97 Nasal Cannula 2.0 04/01/17 15:15 97 Nasal Cannula 2.0 04/01/17 15:15 37.6 109 20 130/76 89 Room Air 04/01/17 15:15 89 Room Air Laboratory Results 04/01/17 15:20 Red Blood Count 3.70, Mean Corpuscular Volume 85.1, Mean Corpuscular Hemoglobin 27.6, Mean Corpuscular Hemoglobin Concent 32.4, Mean Platelet Volume 10.2, Neutrophils (%) (Auto) 85.2, Lymphocytes (%) (Auto) 6.5, Monocytes (%) (Auto) 7.5, Eosinophils (%) (Auto) 0.4, Basophils (%) (Auto) 0.2, Neutrophils # (Auto) 11.22, Lymphocytes # (Auto) 0.85, Monocytes # (Auto) 0.99, Eosinophils # (Auto) 0.05, Basophils # (Auto) 0.02 04/01/17 15:20 Test 04/01/17 15:20 04/01/17 16:50 White Blood Count 13.16 K/uL (4.8-10.8) Red Blood Count 3.70 M/uL (4.7-6.1) Hemoglobin 10.2 g/dL (14.0-18.0) Hematocrit 31.5 % (42-52) Mean Corpuscular Volume 85.1 fL (80-100) Mean Corpuscular Hemoglobin 27.6 pg (25-34) Mean Corpuscular Hemoglobin Concent 32.4 g/dl (32-36) Platelet Count 239 K/uL (130-400) Mean Platelet Volume 10.2 fL (7.4-10.4) Neutrophils (%) (Auto) 85.2 % Lymphocytes (%) (Auto) 6.5 % Monocytes (%) (Auto) 7.5 % Eosinophils (%) (Auto) 0.4 % Basophils (%) (Auto) 0.2 % Neutrophils # (Auto) 11.22 K/uL (1.4-6.5) Lymphocytes # (Auto) 0.85 K/uL (1.2-3.4) Monocytes # (Auto) 0.99 K/uL (0.11-0.59) Eosinophils # (Auto) 0.05 K/uL (0-0.5) Basophils # (Auto) 0.02 K/uL (0-0.2) RDW Standard Deviation 49.5 fL (36.4-46.3) RDW Coefficient of Variation 15.9 % (11.5-14.5) Immature Granulocyte % (Auto) 0.2 % Immature Granulocyte # (Auto) 0.03 K/uL (0.00-0.02) Prothrombin Time 10.4 SECONDS (9.0-12.0) Prothromb Time International Ratio 1.0 (0.9-1.1) Activated Partial Thromboplast Time 32.3 SECONDS (21.0-31.0) Partial Thromboplastin Ratio 1.2 Anion Gap 9.0 mmol/L (3-11) Est Creatinine Clear Calc Drug Dose 82.3 ml/min Estimated GFR () 97.8 Estimated GFR (Non- 84.4 BUN/Creatinine Ratio 16.4 (10-20) Calcium Level 8.6 mg/dl (8.5-10.1) Total Bilirubin 0.6 mg/dl (0.2-1) Aspartate Amino Transf (AST/SGOT) 82 U/L (15-37) Alanine Aminotransferase (ALT/SGPT) 58 U/L (12-78) Alkaline Phosphatase 123 U/L (45-117) Total Creatine Kinase 1516 U/L (39-308) Troponin I < 0.015 ng/ml (0-0.045) Total Protein 7.4 gm/dl (6.4-8.2) Albumin 3.3 gm/dl (3.4-5.0) Globulin 4.1 gm/dl (2.5-4.0) Albumin/Globulin Ratio 0.8 (0.9-2) Urine Color DK YELLOW Urine Appearance CLEAR (CLEAR) Urine pH 6.0 (4.5-7.5) Urine Specific [place] 1.027 (1.000-1.030) Urine Protein 2+ (NEG) Urine Glucose (UA) NEG (NEG) Urine Ketones 2+ (NEG) Urine Occult Blood NEG (NEG) Urine Nitrite NEG (NEG) Urine Bilirubin NEG (NEG) Urine Urobilinogen NEG (NEG) Urine Leukocyte Esterase NEG (NEG) Urine WBC (Auto) 1-5 /hpf (0-5) Urine RBC (Auto) 5-10 /hpf (0-4) Urine Hyaline Casts (Auto) 5-10 /lpf (0-5) Urine Epithelial Cells (Auto) 20-30 /lpf (0-5) Urine Bacteria (Auto) NEG (NEG) Medications Administered Medications (Trade) Dose Ordered Sig/Gurpreet Route Start Time Stop Time Status Last Admin Dose Admin Sodium Chloride 1,000 ml @ 999 mls/hr Q1H1M IV 04/01/17 15:30 05/01/17 15:29 04/01/17 15:46 999 MLS/HR Ceftriaxone Sodium (Rocephin Inj) 1 gm NOW STAT IV 04/01/17 16:12 04/01/17 16:17 DC 04/01/17 16:24 1 GM Departure Information Referrals Darren Flores M.D. (PCP) Patient Instructions My [facility]
[2017-04-01 17:40] VITALS: O2SAT 96; Ht 167.6 cm; Wt 76.7 kg
[2017-04-01] MEDS ORDERED: ONDANSETRON INJ 2 MG/ML 2 ML VIAL IV PRN (18:30)
[2017-04-01] MEDS ORDERED: POLYETHYLENE (MIRALAX) 17 GM PACK PO PRN (18:30)
[2017-04-01] MEDS ORDERED: ACETAMINOPHEN 325 MG TAB PO PRN (18:30)
[2017-04-01] MEDS ORDERED: BUTALBITAL/ACETAMIN/CAFFEINE TAB PO PRN (19:00)
[2017-04-01] MEDS ORDERED: hydrOXYzine HCL 25 MG TAB PO PRN (19:00)
[2017-04-01] MEDS ORDERED: ONDANSETRON 4 MG TAB PO PRN (19:00)
[2017-04-01] MEDS ORDERED: RIZATRIPTAN BENZ (MAXALT-MLT) 10 MG TAB PO PRN (19:00)
--- NOTE | 2017-04-01 19:04 | EMERGENCY ROOM VISIT NOTE ---
History First contact with patient: 15:12 Chief Complaint: COUGH Stated Complaint: SOB Nursing Triage Summary: Patient arrived to [facility] via ALS from home. Patient states "Since last night, I have had a cough, shortness of breath with exertion, pain in the center of my back, achiness in the center of my chest and a low grade fever. I am occassionally coughing stuff up but haven't looked at the color of it." Patient is 89% on room air upon arrival to the ED. Patient uses a cane for ambulation at home. History of Present Illness The patient is a 57 year old male who presents to the Emergency Room with complaints of cough, shortness of breath, low grade fever and back pain. His symptoms started last night. He has some back and chest pain worse on palpation and coughing. His cough is non productive. He was brought in by EMS and desaturated to 88% on ambulation. He was recently admitted in November 2016 for community acquired pneumonia. He has had multiple ER admissions since then. 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) Integumentary: No rash, No itch 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 (14) Low testosterone (15) MIGRAINE UNSPECIFIED W/O INTRACT MGRN W/O STATUS MIGRAINOSUS (16) Neuropathy (17) Tobacco abuse (18) Urinary retention Surgical Problems: (1) S/P decompression of ulnar nerve at elbow Family History Anxiety disorder MOTHER Cancer Diabetes mellitus MOTHER FH: CAD (coronary artery disease) FATHER BROTHER FH: CHF (congestive heart failure) FATHER FH: HTN (hypertension) FH: dementia FATHER FH: diabetes mellitus FH: kidney failure Heart disease Hypertension MOTHER Kidney disease SISTER Social History Smoking Status: Current Every Day Smoker Alcohol Use: none Drug Use: none Marital Status: Housing Status: lives with significant other Occupation Status: disabled Current/Historical Medications Scheduled Amphetamine-Dextroamphetamine 20MG (Adderall 20MG), 20 MG PO DAILY Aspirin (Aspirin Ec), 81 MG PO DAILY Bupropion (Wellbutrin Sr), 200 MG PO BID Buspirone Hcl (Buspirone Hcl), 30 MG PO TID Duloxetine HCl (Duloxetine HCl), 60 MG PO DAILY Gabapentin (Gabapentin), 800 MG PO QID Meloxicam (Mobic), 7.5 MG PO BID Methocarbamol (Robaxin), 500 MG PO TID Mirtazapine Soltab (Remeron Soltab), 15 MG PO HS Pantoprazole (Pantoprazole Sodium), 40 MG PO BID Testosterone Cypionate (Testosterone Cypionate), 100 MG INJ WK Tolterodine Tartrate (Detrol LA), 2 MG PO BID Trimethoprim/Sulfamethoxazole (Bactrim 400MG/80MG), Unknown Dose PO Q12H Scheduled PRN Acetamin/Butalbital/Caffeine (Fioricet), 1-2 TABS PO BID PRN for Headache Diphenoxylate/Atropine (Lomotil), 1 TAB PO UD PRN for Diarrhea Hydroxyzine HCl (Hydroxyzine Pamoate), 25 MG PO Q8 PRN for Anxiety Ondansetron Hcl (Zofran), 4 MG PO Q8 PRN for Nausea Oxycodone Hcl (Oxycodone Hcl), 20 MG PO QID PRN for Pain Rizatriptan Benzoate (Rizatriptan Benzoate), 10 MG PO UD PRN for Headache Tadalafil (Cialis), 5 MG PO UD PRN for erectile dysfunction Physical Exam Vital Signs Date Time Temp Pulse Resp B/P (MAP) Pulse Ox O2 Delivery O2 Flow Rate FiO2 04/01/17 17:59 100 20 103/62 96 Nasal Cannula 2.0 04/01/17 17:40 96 Nasal Cannula 2.0 04/01/17 16:41 78 20 116/71 96 Nasal Cannula 2.0 04/01/17 15:21 106 04/01/17 15:15 97 Nasal Cannula 2.0 04/01/17 15:15 97 Nasal Cannula 2.0 04/01/17 15:15 37.6 109 20 130/76 89 Room Air 04/01/17 15:15 89 Room Air Physical Exam General Appearance: no apparent distress, + pertinent finding (well developed) Eyes: normal inspection (pupils equal) Neck: supple, no JVD, trachea midline Respiratory/Chest: chest non-tender, no respiratory distress, no accessory muscle use, + crackles (bilateral faint crackles posteriorly, clear anteriorly) Cardiovascular: regular rate, rhythm, no edema, no murmur, normal peripheral pulses Abdomen / GI: normal bowel sounds, soft, + tenderness (mild generalized tenderness only on palpation) Back: no CVA tenderness Extremities: normal capillary refill, + calf tenderness (bilateral -> patient reports chronic, no worse than usual, reduced sensation on right leg) Neurologic/Psych: alert, oriented x 3 Medical Decision & Procedures ER Provider Diagnostic Interpretation: CHEST ONE VIEW PORTABLE HISTORY: 57 years-old Male cough, fever acute cough and fever COMPARISON: Chest radiographs 12/09/2016 and 11/22/2016. TECHNIQUE: Portable upright AP view of the chest FINDINGS: Cardiac silhouette is within normal limits. Multifocal mixed interstitial and alveolar opacities are present within the bilateral lungs with focus of alveolar opacities within the left lower lobe. No pneumothorax or pleural effusion. There is also mild bronchial wall thickening suggesting a component of bronchitis. The bones are grossly intact. IMPRESSION: Multifocal multilobar mixed interstitial and alveolar opacities with airspace consolidation greatest at the left lower lobe suggests pneumonia. The above report was generated using voice recognition software. It may contain grammatical, syntax or spelling errors. Electronically signed by: Alfie Petty M.D. 04/01/2017 4:04 PM Dictated Date/Time: 04/01/2017 4:02 PM Laboratory Results 04/01/17 15:20 Red Blood Count 3.70, Mean Corpuscular Volume 85.1, Mean Corpuscular Hemoglobin 27.6, Mean Corpuscular Hemoglobin Concent 32.4, Mean Platelet Volume 10.2, Neutrophils (%) (Auto) 85.2, Lymphocytes (%) (Auto) 6.5, Monocytes (%) (Auto) 7.5, Eosinophils (%) (Auto) 0.4, Basophils (%) (Auto) 0.2, Neutrophils # (Auto) 11.22, Lymphocytes # (Auto) 0.85, Monocytes # (Auto) 0.99, Eosinophils # (Auto) 0.05, Basophils # (Auto) 0.02 04/01/17 15:20 Test 04/01/17 15:20 04/01/17 16:50 White Blood Count 13.16 K/uL (4.8-10.8) Red Blood Count 3.70 M/uL (4.7-6.1) Hemoglobin 10.2 g/dL (14.0-18.0) Hematocrit 31.5 % (42-52) Mean Corpuscular Volume 85.1 fL (80-100) Mean Corpuscular Hemoglobin 27.6 pg (25-34) Mean Corpuscular Hemoglobin Concent 32.4 g/dl (32-36) Platelet Count 239 K/uL (130-400) Mean Platelet Volume 10.2 fL (7.4-10.4) Neutrophils (%) (Auto) 85.2 % Lymphocytes (%) (Auto) 6.5 % Monocytes (%) (Auto) 7.5 % Eosinophils (%) (Auto) 0.4 % Basophils (%) (Auto) 0.2 % Neutrophils # (Auto) 11.22 K/uL (1.4-6.5) Lymphocytes # (Auto) 0.85 K/uL (1.2-3.4) Monocytes # (Auto) 0.99 K/uL (0.11-0.59) Eosinophils # (Auto) 0.05 K/uL (0-0.5) Basophils # (Auto) 0.02 K/uL (0-0.2) RDW Standard Deviation 49.5 fL (36.4-46.3) RDW Coefficient of Variation 15.9 % (11.5-14.5) Immature Granulocyte % (Auto) 0.2 % Immature Granulocyte # (Auto) 0.03 K/uL (0.00-0.02) Prothrombin Time 10.4 SECONDS (9.0-12.0) Prothromb Time International Ratio 1.0 (0.9-1.1) Activated Partial Thromboplast Time 32.3 SECONDS (21.0-31.0) Partial Thromboplastin Ratio 1.2 Anion Gap 9.0 mmol/L (3-11) Est Creatinine Clear Calc Drug Dose 82.3 ml/min Estimated GFR () 97.8 Estimated GFR (Non- 84.4 BUN/Creatinine Ratio 16.4 (10-20) Calcium Level 8.6 mg/dl (8.5-10.1) Total Bilirubin 0.6 mg/dl (0.2-1) Aspartate Amino Transf (AST/SGOT) 82 U/L (15-37) Alanine Aminotransferase (ALT/SGPT) 58 U/L (12-78) Alkaline Phosphatase 123 U/L (45-117) Total Creatine Kinase 1516 U/L (39-308) Troponin I < 0.015 ng/ml (0-0.045) Total Protein 7.4 gm/dl (6.4-8.2) Albumin 3.3 gm/dl (3.4-5.0) Globulin 4.1 gm/dl (2.5-4.0) Albumin/Globulin Ratio 0.8 (0.9-2) Urine Color DK YELLOW Urine Appearance CLEAR (CLEAR) Urine pH 6.0 (4.5-7.5) Urine Specific [place] 1.027 (1.000-1.030) Urine Protein 2+ (NEG) Urine Glucose (UA) NEG (NEG) Urine Ketones 2+ (NEG) Urine Occult Blood NEG (NEG) Urine Nitrite NEG (NEG) Urine Bilirubin NEG (NEG) Urine Urobilinogen NEG (NEG) Urine Leukocyte Esterase NEG (NEG) Urine WBC (Auto) 1-5 /hpf (0-5) Urine RBC (Auto) 5-10 /hpf (0-4) Urine Hyaline Casts (Auto) 5-10 /lpf (0-5) Urine Epithelial Cells (Auto) 20-30 /lpf (0-5) Urine Bacteria (Auto) NEG (NEG) Medications Administered Medications (Trade) Dose Ordered Sig/Gurpreet Route Start Time Stop Time Status Last Admin Dose Admin Sodium Chloride 1,000 ml @ 999 mls/hr Q1H1M IV 04/01/17 15:30 05/01/17 15:29 04/01/17 15:46 999 MLS/HR Ceftriaxone Sodium (Rocephin Inj) 1 gm NOW STAT IV 04/01/17 16:12 04/01/17 16:17 DC 04/01/17 16:24 1 GM Doxycycline Hyclate 100 mg/ Dextrose 110 ml @ 50 mls/hr ONE STAT IV 04/01/17 16:12 04/01/17 18:23 DC 04/01/17 17:13 50 MLS/HR ECG Indication: chest pain, back/shoulder pain Rhythm: sinus tachycardia Findings: no acute ischemic change Change: no significant change (09 Dec 2016) ED Course 15:25 Complete history and physical was performed by myself 15:35 Patient was discussed with Dr Solis who added blood culture to labs 16:10 Reviewed labs and CXR with the patient, discussed with the [facility] Hospitalist to evaluate patient for admission to hospital. Medical Decision Prior records/ancillary studies reviewed. Triage Nursing notes reviewed. Additional history obtained from patient. The patient's history was concerning for pneumonia. Differential diagnosis: Etiologies such as cardiac ischemia, aortic dissection, pulmonary embolism, pneumonia, pneumothorax, musculoskeletal, infections, pericarditis, myocarditis , esophageal rupture, gastrointestinal, as well as others were entertained. Physical examination: As above. bilateral faint crackles ER treatment provided: Ceftriaxone 1g IV Doxycycline 100mg IV NSS 1L bolus On reassessment the patient felt better. Diagnostic interpretation by me: The electrocardiogram was negative for pathologic change. The labs revealed elevated WBC Imaging studies: Chest x-ray as above He was diagnosed with multifocal pneumonia and hypoxia. Consultation: A consultation was placed with the [facility] hospitalist. The case was discussed and diagnostics were reviewed. The patient was evaluated in the ER for further treatment. By the evaluation outlined above emergent etiologies such as cardiac ischemia, aortic dissection, pulmonary embolism, pneumothorax, infections, pericarditis, myocarditis, gastrointestinal, as well as others were deemed relatively unlikely. The patient informed about the findings as listed above. All questions were answered and he pleased with the treatment. Return instructions were outlined and the patient was discharged in stable condition. Medication Reconcilliation Current Medication List: was personally reviewed by me Impression Primary Impression: Multifocal pneumonia Additional Impression: Hypoxia Departure Information Dispostion Being Evaluated By Hospitalist Condition GOOD Referrals Darren Flores M.D. (PCP) Patient Instructions My [facility] Resident Tracking Resident Involvement: Resident Care Provided Care Provided: Adult ED Problem Qualifiers
[2017-04-01] MEDS: SODIUM CHLORIDE 0.9% 1000ML 1,000 ML IV SCH (19:47)
[2017-04-01 20:13] VITALS: BP 114/73; PULSE 94; TEMP 36.7; O2SAT 94
--- NOTE | 2017-04-01 20:35 | History and Physical ---
History & Physical Date & Time of Service: Apr 01, 2017 at 19:02 Chief Complaint: SOB Primary Care Physician: Darren Flores M.D. History of Present Illness Source: patient, spouse, clinic records, hospital records Patient is a 57 yo male who presented to the ER today for complaints of SOB, malaise, and coughing since last night. He is accompanied by his who is able to provide much of the information as the patient states he is having some difficulty recalling things and cannot find the words he wants to say to answer questions. They patient was also said to be confused yesterday but that has improved today per the and patient. The patient reports his cough is semi- productive but does not know what it looks like. He also reports that he was on bactrim for a urinary tract infection and took the last dose yesterday. He complains of pain in his upper back related to coughing as well. He had fevers overnight and this morning his temp was ~101 F. He denies any urinary symptoms, denies blood in the stool or urine, denies diarrhea, but complains of some mild abdominal discomfort and constipation for 3 days which is not uncommon for him. He is diaphoretic during the interview. He denies feeling SOB but his oxygen saturation drops into the high 80's when he takes his nasal cannula off. He denies any CP or palpitations. He denies any fall today but states he does fall on occasion due to pain and also his LLE. He denies any PIERRE, dizziness, lightheadedness, or ENT symptoms. No recent medication changes noted. No recent travel. No sick contacts. Past Medical/Surgical History Medical Problems: (1) Anemia Status: Chronic (2) ANXIETY STATE NOS Status: Chronic (3) Asthma Status: Chronic (4) BENIGN HYPERTENSION Status: Chronic (5) BIPOLAR DISORDER, UNSPECIFIED Status: Chronic (6) Chronic back pain Status: Chronic (7) Chronic low back pain Status: Chronic (8) CHRONIC PEPTIC ULCER NOS Status: Chronic (9) DEPRESSIVE DISORDER NEC Status: Chronic (10) DIVERTICULOSIS COLON (W/O MENT OF HEMORRHAGE) Status: Chronic (11) ESOPHAGEAL REFLUX Status: Chronic (12) IDIOPATHIC TRANSVERSE MYELITIS Status: Chronic (13) Low testosterone Status: Chronic (14) MIGRAINE UNSPECIFIED W/O INTRACT MGRN W/O STATUS MIGRAINOSUS Status: Chronic (15) Neuropathy Status: Chronic (16) Tobacco abuse Status: Chronic (17) Urinary retention Status: Chronic Surgical Problems: (1) S/P decompression of ulnar nerve at elbow Status: Resolved Family History Anxiety disorder MOTHER Cancer Diabetes mellitus MOTHER FH: CAD (coronary artery disease) FATHER BROTHER FH: CHF (congestive heart failure) FATHER FH: HTN (hypertension) FH: dementia FATHER FH: diabetes mellitus FH: kidney failure Heart disease Hypertension MOTHER Kidney disease SISTER Social History Smoking Status: Current Every Day Smoker (upwards of 1 ppd) Alcohol Use: none Drug Use: none Marital Status: Housing status: lives with family Occupational Status: disabled Immunizations History of Influenza Vaccine: No History of Tetanus Vaccine?: Yes History of Pneumococcal: No History of Hepatitis B Vaccine: No Multi-Drug Resistant Organisms History of MDRO: No Allergies Coded Allergies: Ciprofloxacin (Verified Allergy, Intermediate, RASH, 04/01/17) rash / urticaria proximal to IV site after infusion 04/07/15 Penicillins (Verified Allergy, Intermediate, RASH, 04/01/17) Home Medications Scheduled Amphetamine-Dextroamphetamine 20MG (Adderall 20MG), 20 MG PO DAILY Aspirin (Aspirin Ec), 81 MG PO DAILY Bupropion (Wellbutrin Sr), 200 MG PO BID Buspirone Hcl (Buspirone Hcl), 30 MG PO TID Duloxetine HCl (Duloxetine HCl), 60 MG PO DAILY Gabapentin (Gabapentin), 800 MG PO QID Meloxicam (Mobic), 7.5 MG PO BID Methocarbamol (Robaxin), 500 MG PO TID Mirtazapine Soltab (Remeron Soltab), 15 MG PO HS Pantoprazole (Pantoprazole Sodium), 40 MG PO BID Testosterone Cypionate (Testosterone Cypionate), 100 MG INJ WK Tolterodine Tartrate (Detrol LA), 2 MG PO BID Trimethoprim/Sulfamethoxazole (Bactrim 400MG/80MG), Unknown Dose PO Q12H Scheduled PRN Acetamin/Butalbital/Caffeine (Fioricet), 1-2 TABS PO BID PRN for Headache Diphenoxylate/Atropine (Lomotil), 1 TAB PO UD PRN for Diarrhea Hydroxyzine HCl (Hydroxyzine Pamoate), 25 MG PO Q8 PRN for Anxiety Ondansetron Hcl (Zofran), 4 MG PO Q8 PRN for Nausea Oxycodone Hcl (Oxycodone Hcl), 20 MG PO QID PRN for Pain Rizatriptan Benzoate (Rizatriptan Benzoate), 10 MG PO UD PRN for Headache Tadalafil (Cialis), 5 MG PO UD PRN for erectile dysfunction Review of Systems ROS as per HPI above; all other ROS reviewed and were negative. Physical Exam Vital Signs Date Time Temp Pulse Resp B/P (MAP) Pulse Ox O2 Delivery O2 Flow Rate FiO2 04/01/17 18:51 100 20 96 04/01/17 17:59 100 20 103/62 96 Nasal Cannula 2.0 04/01/17 17:40 96 Nasal Cannula 2.0 04/01/17 16:41 78 20 116/71 96 Nasal Cannula 2.0 04/01/17 15:21 106 04/01/17 15:15 97 Nasal Cannula 2.0 04/01/17 15:15 97 Nasal Cannula 2.0 04/01/17 15:15 37.6 109 20 130/76 89 Room Air 04/01/17 15:15 89 Room Air General Appearance: WD/WN, no apparent distress, + pertinent finding ( diaphoretic) Head: normocephalic, atraumatic Eyes: PERRL, EOMI, sclerae normal ENT: hearing grossly normal, pharynx normal Neck: supple, no JVD, no carotid bruits, trachea midline Respiratory/Chest: chest non-tender, no respiratory distress, no accessory muscle use Cardiovascular: no edema, no gallop, no JVD Abdomen/GI: normal bowel sounds, non tender, no organomegaly, + distended Back: no CVA tenderness, + decreased range of motion Extremities/Musculoskelatal: no calf tenderness, normal capillary refill, + pedal edema Neurologic/Psych: no motor/sensory deficits, alert, normal mood/affect Skin: normal color, warm/dry, no rash Diagnostics Laboratory Results Results Past 24 Hours Test 04/01/17 15:20 04/01/17 16:50 Range/Units White Blood Count 13.16 4.8-10.8 K/uL Red Blood Count 3.70 4.7-6.1 M/uL Hemoglobin 10.2 14.0-18.0 g/dL Hematocrit 31.5 42-52 % Mean Corpuscular Volume 85.1 80-100 fL Mean Corpuscular Hemoglobin 27.6 25-34 pg Mean Corpuscular Hemoglobin Concent 32.4 32-36 g/dl Platelet Count 239 130-400 K/uL Mean Platelet Volume 10.2 7.4-10.4 fL Neutrophils (%) (Auto) 85.2 % Lymphocytes (%) (Auto) 6.5 % Monocytes (%) (Auto) 7.5 % Eosinophils (%) (Auto) 0.4 % Basophils (%) (Auto) 0.2 % Neutrophils # (Auto) 11.22 1.4-6.5 K/uL Lymphocytes # (Auto) 0.85 1.2-3.4 K/uL Monocytes # (Auto) 0.99 0.11-0.59 K/uL Eosinophils # (Auto) 0.05 0-0.5 K/uL Basophils # (Auto) 0.02 0-0.2 K/uL RDW Standard Deviation 49.5 36.4-46.3 fL RDW Coefficient of Variation 15.9 11.5-14.5 % Immature Granulocyte % (Auto) 0.2 % Immature Granulocyte # (Auto) 0.03 0.00-0.02 K/uL Prothrombin Time 10.4 9.0-12.0 SECONDS Prothromb Time International Ratio 1.0 0.9-1.1 Activated Partial Thromboplast Time 32.3 21.0-31.0 SECONDS Partial Thromboplastin Ratio 1.2 Sodium Level 131 136-145 mmol/L Potassium Level 3.9 3.5-5.1 mmol/L Chloride Level 96 98-107 mmol/L Carbon Dioxide Level 26 21-32 mmol/L Anion Gap 9.0 3-11 mmol/L Blood Urea Nitrogen 16 7-18 mg/dl Creatinine 1.00 0.60-1.40 mg/dl Est Creatinine Clear Calc Drug Dose 82.3 ml/min Estimated GFR () 97.8 Estimated GFR (Non- 84.4 BUN/Creatinine Ratio 16.4 10-20 Random Glucose 109 70-99 mg/dl Calcium Level 8.6 8.5-10.1 mg/dl Total Bilirubin 0.6 0.2-1 mg/dl Aspartate Amino Transf (AST/SGOT) 82 15-37 U/L Alanine Aminotransferase (ALT/SGPT) 58 12-78 U/L Alkaline Phosphatase 123 45-117 U/L Total Creatine Kinase 1516 39-308 U/L Troponin I < 0.015 0-0.045 ng/ml Total Protein 7.4 6.4-8.2 gm/dl Albumin 3.3 3.4-5.0 gm/dl Globulin 4.1 2.5-4.0 gm/dl Albumin/Globulin Ratio 0.8 0.9-2 Urine Color DK YELLOW Urine Appearance CLEAR CLEAR Urine pH 6.0 4.5-7.5 Urine Specific [place] 1.027 1.000-1.030 Urine Protein 2+ NEG Urine Glucose (UA) NEG NEG Urine Ketones 2+ NEG Urine Occult Blood NEG NEG Urine Nitrite NEG NEG Urine Bilirubin NEG NEG Urine Urobilinogen NEG NEG Urine Leukocyte Esterase NEG NEG Urine WBC (Auto) 1-5 0-5 /hpf Urine RBC (Auto) 5-10 0-4 /hpf Urine Hyaline Casts (Auto) 5-10 0-5 /lpf Urine Epithelial Cells (Auto) 20-30 0-5 /lpf Urine Bacteria (Auto) NEG NEG Microbiology Results 04/01/17 Blood Culture, Received Pending 04/01/17 Blood Culture, Received Pending Impression Assessment and Plan PNEUMONIA: likely CAP -meets some SIRS criteria with mild fever 37.6, WBC 13, tachycardia -lactate ordered -Blood cultures obtained -sputum cultures ordered -empirically started on ceftriaxone and doxycycline which will be continued ( patient tolerated cephalosporins previously despite PCN allergy) -IVF hydration -tessalon perles PRN cough -CXR: reports mentions multifocal multilobar mixed interstitial and alveolar opacities, and airspace consolidation greatest at the LLL suggests pneumonia. MILD HYPONATREMIA: -repeat labs in AM after hydration with IV fluids RHABDOMYOLYSIS: -has a history of multiple admissions for this in the past -CPK 1500's -recheck after IV fluid hydration ANXIETY/DEPRESSION/BIPOLAR: -follows with Psych as outpatient -stable -continue Buspirone, Wellbutrin, Cymbalta, and Remeron CHRONIC PAIN: -left shoulder and back -continue Oxycodone, Gabapentin MIGRAINES: -continue Fioricet PRN -rizatriptan PRN Hx of TRANSVERSE MYELITIS: -no new complaints related to this -on methocarbamol for muscle spasms; will continue this URINARY RETENTION: -straight caths -continue Detrol CHRONIC ANEMIA: -Hb 10.2, at baseline -monitor TOBACCO ABUSE -smoking cessation counseling -Nicotine patch GERD/PUD -continue PPI Advanced Directives Existing Living Will: No Existing Power of Apprentice Lineman Third Step: No VTE Prophylaxis VTE Risk Assessment Done? Y/N: Yes Risk Level: Moderate
[2017-04-01] MEDS: NICOTINE 21 MG/24 HR TDSY TD SCH (20:38)
[2017-04-01] MEDS: BuPROPion SR 100 MG TABCR PO SCH (20:42)
[2017-04-01] MEDS: GABAPENTIN 800 MG TAB PO SCH (20:42)
[2017-04-01] MEDS: PANTOprazole SOD 40 MG TAB PO SCH (20:44)
[2017-04-01] MEDS: MELOXICAM 7.5 MG TAB PO SCH (20:44)
[2017-04-01] MEDS: TOLTERODINE TARTRATE LA 2 MG CAPCR PO SCH (20:44)
[2017-04-01] MEDS: METHOCARBAMOL 500 MG TAB PO SCH (20:45)
[2017-04-01] MEDS: MIRTAZAPINE TAB 15 MG TAB PO SCH (20:46)
[2017-04-01] MEDS: HEPARIN SOD 5000 UNIT/0.5 ML CARP SQ SCH (20:49)
[2017-04-01] MEDS: BusPIRone 15 MG TAB PO SCH (20:52)
[2017-04-01] MEDS ORDERED: SODIUM CHLORIDE 0.65% NA SOLN 45 ML (OCEAN) PRN (21:45)
[2017-04-01 23:08] LABS: BENZODIAZEPINE, URINE POS (NEG); COCAINE,URINE NEG (NEG); PHENCYCLIDINE, URINE NEG (NEG)
[2017-04-01 23:36] VITALS: BP 110/72; PULSE 100; TEMP 36.6; O2SAT 91
[2017-04-01] MEDS: OXYCODONE HCL IR 5 MG TAB (IMMEDIATE RELEASE) PO PRN (23:44)
[2017-04-02] VITALS (10 sets, daily range): BP systolic 108–159; BP diastolic 66–84; PULSE 98–109; TEMP 36.9–37.6; O2SAT 76–98
[2017-04-02] MEDS: SODIUM CHLORIDE 0.9% 1000ML 1,000 ML IV SCH (05:14)
[2017-04-02] MEDS: DOXYCYCLINE IV 100 MG in DEXTROSE 5% 100ML 100 ML IV SCH ×2 (06:11→18:16)
[2017-04-02 07:04] LABS: HEMATOCRIT 28.8 % (42-52); MEAN CORPUSCULAR HEMOGLOBIN 28.3 pg (25-34); MEAN CORPUSCULAR HGB CONC 33.3 g/dl (32-36); MEAN PLATELET VOLUME 9.8 fL (7.4-10.4); PLATELET COUNT 222 K/uL (130-400); RED BLOOD COUNT 3.39 M/uL (4.7-6.1)
[2017-04-02 07:39] LABS: BUN/CREATININE RATIO 14.3 (10-20); CALCIUM 8.2 mg/dl (8.5-10.1); CREATININE 0.9 mg/dl (0.60-1.40); MAGNESIUM 2.2 mg/dl (1.8-2.4); POTASSIUM 3.9 mmol/L (3.5-5.1)
[2017-04-02 07:42] LABS: PHOSPHORUS 1.6 mg/dl (2.5-4.9)
[2017-04-02] MEDS ORDERED: SODIUM PHOSPHATE 3 MMOL/1 ML INFUSION IV STA (07:47)
[2017-04-02] MEDS ORDERED: ASPIRIN 81 MG ECTAB PO SCH (08:00)
[2017-04-02] MEDS ORDERED: SODIUM PHOSPHATE INJ 15 MMOL in SODIUM CHLORIDE 0.9% 250ML 250 ML IV SCH (08:15)
[2017-04-02] MEDS: BusPIRone 15 MG TAB PO SCH ×3 (08:33→21:15)
[2017-04-02] MEDS: OXYCODONE HCL IR 5 MG TAB (IMMEDIATE RELEASE) PO PRN ×2 (08:34→13:40)
[2017-04-02] MEDS: METHOCARBAMOL 500 MG TAB PO SCH ×3 (08:34→21:15)
[2017-04-02] MEDS: NICOTINE 21 MG/24 HR TDSY TD SCH (08:34)
[2017-04-02] MEDS: DULOXETINE HCL 60 MG CAP PO SCH (08:34)
[2017-04-02] MEDS: GABAPENTIN 800 MG TAB PO SCH ×4 (08:35→21:12)
[2017-04-02] MEDS: BuPROPion SR 100 MG TABCR PO SCH ×2 (08:35→21:13)
[2017-04-02] MEDS: MELOXICAM 7.5 MG TAB PO SCH ×2 (08:35→18:15)
[2017-04-02] MEDS: TOLTERODINE TARTRATE LA 2 MG CAPCR PO SCH ×2 (08:35→21:15)
[2017-04-02] MEDS: PANTOprazole SOD 40 MG TAB PO SCH ×2 (08:35→21:13)
[2017-04-02] MEDS: HEPARIN SOD 5000 UNIT/0.5 ML CARP SQ SCH (08:41)
[2017-04-02] MEDS: AMPHETAMINE ASP/SULF/DEXTRAMPH 20 MG TAB PO SCH (08:49)
[2017-04-02] MEDS ORDERED: DOCUSATE SODIUM 100 MG CAP PO ONE (12:30)
[2017-04-02] MEDS: SENNA 8.6 MG TAB PO SCH (13:19)
[2017-04-02] MEDS ORDERED: NURSING VERBAL MED ORDER ONE ×2 (13:30)
--- NOTE | 2017-04-02 13:43 | Progress Note ---
Subjective Date of Service: Apr 02, 2017. Subjective Pt evaluation today including: conversation w/ patient, physical exam, lab review, review of studies, review of inpatient medication list Saw/examined the patient in room 405 +constipation today states he came in due to shortness of breath/cough/fevers c/o pain generalized Problem List Medical Problems: (1) Abdominal pain Status: Acute (2) Acute delirium Status: Acute (3) Back pain Status: Acute (4) Back pain Status: Acute (5) Back pain Status: Acute (6) Central chest pain Status: Acute (7) Change in mental status Status: Acute (8) Chronic back pain Status: Chronic (9) Chronic back pain Status: Acute (10) Chronic low back pain Status: Acute (11) Contusion of multiple sites Status: Acute (12) Dehydration Status: Acute (13) Dehydration Status: Acute (14) Dehydration Status: Acute (15) Dehydration Status: Acute (16) Fall Status: Acute (17) Fall Status: Acute (18) Frequent falls Status: Acute (19) Headache Status: Acute (20) History of rhabdomyolysis Status: Acute (21) Hypoglycemia Status: Acute (22) Hypoxia Status: Acute (23) Left hip pain Status: Acute (24) Left shoulder pain Status: Acute (25) Leg weakness Status: Acute (26) Low back pain Status: Acute (27) Low back pain Status: Acute (28) Lower back pain Status: Acute (29) Multifocal pneumonia Status: Acute (30) Neck pain Status: Acute (31) Rhabdomyolysis Status: Acute (32) Rhabdomyolysis Status: Acute (33) Rib pain on left side Status: Acute (34) Symptoms involving urinary system Status: Acute (35) Tachycardia Status: Acute (36) Weakness Status: Acute Review of Systems Constitutional: + fever, + chills, + weakness Respiratory: + cough, + sputum, + shortness of breath, No wheezing, No dyspnea on exertion, No dyspnea at rest, No hemoptysis Abdomen: + constipation, No pain, No nausea, No vomiting, No diarrhea Medications Current Inpatient Medications Medications (Trade) Dose Ordered Sig/Gurpreet Route Start Time Stop Time Status Last Admin Dose Admin Acetaminophen (Tylenol Tab) 650 mg Q4H PRN PO 04/01/17 18:30 05/01/17 18:29 Polyethylene (Miralax Powder Packet) 17 gm DAILY PRN PO 04/01/17 18:30 10/2/17 18:29 04/02/17 10:37 17 GM Ondansetron HCl (Zofran Inj) 4 mg Q6H PRN IV 04/01/17 18:30 05/01/17 18:29 Heparin Sodium (Porcine) (Heparin Sq 5000 Unit/0.5ml) 5,000 unit Q12 SQ 04/01/17 21:00 05/01/17 20:59 04/02/17 08:41 5,000 UNIT Ceftriaxone Sodium 1 gm/ Dextrose 50 ml @ 100 mls/hr DAILY@1600 IV 04/02/17 16:00 04/08/17 15:59 Doxycycline Hyclate 100 mg/ Dextrose 110 ml @ 50 mls/hr Q12H IV 04/02/17 06:00 04/08/17 05:59 04/02/17 06:11 50 MLS/HR Nicotine (Nicoderm Cq 21MG Patch) 1 patch DAILY TD 04/01/17 18:45 05/01/17 18:44 04/02/17 08:34 1 PATCH Sodium Chloride 1,000 ml @ 100 mls/hr Q10H IV 04/01/17 18:45 04/02/17 18:44 04/02/17 05:14 100 MLS/HR Acetaminophen/ Butalbital/ Caffeine (Fioricet Tab) 1 tab BID PRN PO 04/01/17 19:00 05/01/17 18:59 Amphetamine Aspartate/ Amphetam Sulf (Amphetamine Aspartate/Amph Sulf/Dextramphet) 20 mg DAILY PO 04/02/17 08:00 04/16/17 08:59 04/02/17 08:49 20 MG Aspirin (Ecotrin Tab) 81 mg DAILY PO 04/02/17 08:00 05/02/17 08:59 04/02/17 08:34 81 MG Bupropion HCl (Wellbutrin-Sr Tab) 200 mg BID PO 04/01/17 20:00 05/01/17 20:59 04/02/17 08:35 200 MG Diphenoxylate HCl/ Atropine (Lomotil Tab) 1 tab UD PRN PO 04/01/17 19:00 05/01/17 18:59 Duloxetine HCl (Cymbalta Cap) 60 mg DAILY PO 04/02/17 08:00 05/02/17 08:59 04/02/17 08:34 60 MG Gabapentin (Neurontin Tab) 800 mg QID PO 04/01/17 20:00 05/01/17 20:59 04/02/17 11:58 800 MG Meloxicam (Mobic Tab) 7.5 mg BIDM PO 04/01/17 20:00 05/01/17 19:59 04/02/17 08:35 7.5 MG Methocarbamol (Robaxin Tab) 500 mg TID PO 04/01/17 20:00 05/01/17 20:59 04/02/17 13:19 500 MG Ondansetron HCl (Zofran Tab) 4 mg Q8 PRN PO 04/01/17 19:00 05/01/17 18:59 Pantoprazole Sodium (Protonix Tab) 40 mg BID PO 04/01/17 20:00 05/01/17 20:59 04/02/17 08:35 40 MG Tolterodine Tartrate (Detrol LA Cap) 2 mg BID PO 04/01/17 20:00 05/01/17 20:59 04/02/17 08:35 2 MG Buspirone HCl (BusPAR TAB) 30 mg TID PO 04/01/17 20:00 05/01/17 20:59 04/02/17 13:19 30 MG Mirtazapine (Remeron Tab) 15 mg HS PO 04/01/17 21:00 05/01/17 20:59 04/01/17 20:46 15 MG Rizatriptan Benzoate (Rizatriptan Benzoate Odt) 10 mg UD PRN PO 04/01/17 19:00 05/01/17 18:59 Hydroxyzine HCl (Vistaril Tab) 25 mg Q8 PRN PO 04/01/17 19:00 05/01/17 18:59 Oxycodone HCl (Roxicodone Immediate Rel Tab) 20 mg QID PRN PO 04/01/17 19:00 04/15/17 18:59 04/02/17 08:34 20 MG Sodium Chloride ([place] Nasal [place]) 1 sprays PRN PRN NA 04/01/17 21:45 05/01/17 21:44 04/02/17 00:50 1 SPRAYS Senna (Senokot Tab) 8.6 mg QAM PO 04/02/17 13:00 05/02/17 12:59 04/02/17 13:19 8.6 MG Docusate Sodium (coLACE CAP) 100 mg BID PO 04/02/17 20:00 05/02/17 19:59 Miscellaneous Information (Nursing Verbal Med Order) 1 ea ONE ONCE N/A 04/02/17 13:30 04/02/17 13:31 UNV Miscellaneous Information (Nursing Verbal Med Order) 1 ea ONE ONCE N/A 04/02/17 13:30 04/02/17 13:31 UNV Objective Vital Signs Date Time Temp Pulse Resp B/P (MAP) Pulse Ox O2 Delivery O2 Flow Rate FiO2 04/02/17 10:30 98 Nasal Cannula 2.0 04/02/17 10:01 37.5 04/02/17 08:14 37.6 109 20 125/74 (91) 97 Nasal Cannula 2.0 04/02/17 08:00 97 Nasal Cannula 2.0 04/02/17 00:00 Nasal Cannula 2.0 04/01/17 23:36 36.6 100 20 110/72 (85) 91 04/01/17 20:13 36.7 94 20 114/73 (87) 94 Nasal Cannula 2.0 04/01/17 18:51 100 20 96 04/01/17 17:59 100 20 103/62 96 Nasal Cannula 2.0 04/01/17 17:40 96 Nasal Cannula 2.0 04/01/17 16:41 78 20 116/71 96 Nasal Cannula 2.0 04/01/17 15:21 106 04/01/17 15:15 97 Nasal Cannula 2.0 04/01/17 15:15 97 Nasal Cannula 2.0 04/01/17 15:15 37.6 109 20 130/76 89 Room Air 04/01/17 15:15 89 Room Air Physical Exam General Appearance: + mild distress Respiratory/Chest: no respiratory distress, no accessory muscle use, + decreased breath sounds, + crackles Abdomen: + abnormal bowel sounds (hypoactive bowel sounds), + distended Extremities: normal inspection, no pedal edema Laboratory Results Last 24 Hours Test 04/01/17 15:20 04/01/17 16:50 04/01/17 20:44 04/02/17 06:39 White Blood Count 13.16 K/uL 12.50 K/uL Red Blood Count 3.70 M/uL 3.39 M/uL Hemoglobin 10.2 g/dL 9.6 g/dL Hematocrit 31.5 % 28.8 % Mean Corpuscular Volume 85.1 fL 85.0 fL Mean Corpuscular Hemoglobin 27.6 pg 28.3 pg Mean Corpuscular Hemoglobin Concent 32.4 g/dl 33.3 g/dl Platelet Count 239 K/uL 222 K/uL Mean Platelet Volume 10.2 fL 9.8 fL Neutrophils (%) (Auto) 85.2 % Lymphocytes (%) (Auto) 6.5 % Monocytes (%) (Auto) 7.5 % Eosinophils (%) (Auto) 0.4 % Basophils (%) (Auto) 0.2 % Neutrophils # (Auto) 11.22 K/uL Lymphocytes # (Auto) 0.85 K/uL Monocytes # (Auto) 0.99 K/uL Eosinophils # (Auto) 0.05 K/uL Basophils # (Auto) 0.02 K/uL RDW Standard Deviation 49.5 fL 50.1 fL RDW Coefficient of Variation 15.9 % 16.1 % Immature Granulocyte % (Auto) 0.2 % Immature Granulocyte # (Auto) 0.03 K/uL Prothrombin Time 10.4 SECONDS Prothromb Time International Ratio 1.0 Activated Partial Thromboplast Time 32.3 SECONDS Partial Thromboplastin Ratio 1.2 Sodium Level 131 mmol/L 134 mmol/L Potassium Level 3.9 mmol/L 3.9 mmol/L Chloride Level 96 mmol/L 100 mmol/L Carbon Dioxide Level 26 mmol/L 23 mmol/L Anion Gap 9.0 mmol/L 11.0 mmol/L Blood Urea Nitrogen 16 mg/dl 13 mg/dl Creatinine 1.00 mg/dl 0.90 mg/dl Est Creatinine Clear Calc Drug Dose 82.3 ml/min 83.6 ml/min Estimated GFR () 97.8 111.0 Estimated GFR (Non- 84.4 95.8 BUN/Creatinine Ratio 16.4 14.3 Random Glucose 109 mg/dl 99 mg/dl Calcium Level 8.6 mg/dl 8.2 mg/dl Total Bilirubin 0.6 mg/dl Aspartate Amino Transf (AST/SGOT) 82 U/L Alanine Aminotransferase (ALT/SGPT) 58 U/L Alkaline Phosphatase 123 U/L Total Creatine Kinase 1516 U/L 991 U/L Troponin I < 0.015 ng/ml Total Protein 7.4 gm/dl Albumin 3.3 gm/dl Globulin 4.1 gm/dl Albumin/Globulin Ratio 0.8 Urine Color DK YELLOW Urine Appearance CLEAR Urine pH 6.0 Urine Specific [place] 1.027 Urine Protein 2+ Urine Glucose (UA) NEG Urine Ketones 2+ Urine Occult Blood NEG Urine Nitrite NEG Urine Bilirubin NEG Urine Urobilinogen NEG Urine Leukocyte Esterase NEG Urine WBC (Auto) 1-5 /hpf Urine RBC (Auto) 5-10 /hpf Urine Hyaline Casts (Auto) 5-10 /lpf Urine Epithelial Cells (Auto) 20-30 /lpf Urine Bacteria (Auto) NEG Urine Opiates Screen POS Urine Methadone, Qualitative NEG Urine Barbiturates NEG Urine Phencyclidine (PCP) Level NEG Ur Amphetamine/Methamphetamine NEG MDMA (Ecstasy) Screen POS Urine Benzodiazepines Screen POS Urine Cocaine Metabolite NEG Urine Marijuana (THC) NEG Lactic Acid Level 1.1 mmol/L Phosphorus Level 1.6 mg/dl Magnesium Level 2.2 mg/dl Assessment and Plan This is a 57 year old male with a PMH of transverse myelitis, depression/anxiety , recurrent rhabdomyolysis, long-term narcotic use, urinary retention presents with fever, cough, shortness of breath - found to have pneumonia Sepsis secondary to CAP patient presented with WBC and fevers as well as tachycardia CXR suggests LL lobe Pneumonia started on Rocephin and Doxycycline white count is improving, he feels slightly better still has some shortness of breath today will stop IVFs Constipation patient's abdomen is distended decreased bowel sounds will give senna, Colace and Miralax patient has had issues with this in the past due to narcotic use Transverse Myelitis Chronic Narcotic Use continue home narcotic use at this point, patient is requesting stronger medications, but I do not believe we should change it Depression/Anxiety continue home medications DVT ppx subq heparin FULL CODE
[2017-04-02] MEDS ORDERED: CEFTRIAXONE SOD INJ 1 GM in DEXTROSE 5% ADD-VANTAGE 50ML 50 ML IV SCH (16:00)
[2017-04-02] MEDS ORDERED: hydrOXYzine HCL 25 MG TAB PO STA (20:01)
[2017-04-02] MEDS ORDERED: LEVALBUTEROL/IPRATROPIUM NEB INH STA (20:05)
[2017-04-02] MEDS ORDERED: BENZONATATE 100MG CAP PO PRN (20:15)
[2017-04-02] MEDS ORDERED: POTASSIUM PHOS 3 MMOL/1 ML INFUSION IV ONE (20:15)
[2017-04-02] MEDS ORDERED: LEVALBUTEROL/IPRATROPIUM NEB INH PRN (20:15)
[2017-04-02 20:25] LABS: HEMATOCRIT 30.1 % (42-52); MEAN CELL VOLUME 84.8 fL (80-100); MEAN CORPUSCULAR HEMOGLOBIN 28.7 pg (25-34); MEAN PLATELET VOLUME 9.8 fL (7.4-10.4); PLATELET COUNT 247 K/uL (130-400); RED BLOOD COUNT 3.55 M/uL (4.7-6.1); WHITE BLOOD COUNT 14.53 K/uL (4.8-10.8)
[2017-04-02 20:26] LABS: MEAN CORPUSCULAR HGB CONC 33.9 g/dl (32-36)
[2017-04-02] MEDS ORDERED: METHYLPREDNISOLONE IV 20 MG in SYRINGE 0 ML IV STA (20:27)
[2017-04-02] MEDS ORDERED: POTASSIUM PHOSPHATE INJ 30 MMOL in SODIUM CHLORIDE 0.9% 500ML 500 ML IV ONE (20:30)
[2017-04-02 20:44] LABS: ARTERIAL BLD GAS O2 SATURATION 89.2 % (90-95); ARTERIAL BLOOD GAS BASE EXCESS -0.1 mEq/L (-9-1.8); ARTERIAL BLOOD GAS HCO3 24 mmol/L (19-24); ARTERIAL BLOOD GAS PO2 59 mm/Hg (80-95); ARTERIAL BLOOD GAS pH 7.46 (7.35-7.45)
[2017-04-02 20:45] LABS: ALLEN TEST POS (POS); O2 ADMINISTRATION 3.5L
--- NOTE | 2017-04-02 20:56 | DIAGNOSTIC IMAGING REPORT ---
CHEST ONE VIEW PORTABLE HISTORY: hemoptysis COMPARISON: Chest 04/01/2017. FINDINGS: Progressive bilateral consolidative airspace opacities. This results in near complete opacification of the lungs, left greater than right. The heart remains mildly enlarged. No pneumothorax. No pleural effusions. IMPRESSION: Progressive multifocal bilateral consolidative airspace opacities. Electronically signed by: Liban Boyle M.D. 04/02/2017 8:54 PM Dictated Date/Time: 04/02/2017 8:53 PM
[2017-04-02] MEDS ORDERED: NSS + 20MEQ KCL 1000ML 1,000 ML IV ONE (21:00)
--- NOTE | 2017-04-02 21:12 | Progress Note ---
Internal Med Progress Note Date of Service: Apr 02, 2017. Provider Documentation: SUBJECTIVE: Made aware by RN of patient complaint of increasing shortness of breath. Chest pain from coughing. Patient admits to coughing with meals and water if he is not careful. OBJECTIVE: Vital Signs-as noted below Exam: General- anxious, resp distress SKIN : Pallor HEENT -pale palp conjunctivae, dry buccal mucosa, O2 mask on Neck-supple Lungs-decreased breath sounds, scattered rales Heart- RRR Abdomen-distended , non- tenderness Extremities min LE edema, no tenderness NE coherent CXR : Worsening bilateral pneumonia ABG 7.46/34/59/89 on 3.5L ASSESSMENT & PLAN: Worsening hypoxemic respiratory failure secondary to bilateral pneumonia Possible aspiration Possible ARDS Rule out pulmonary embolism with chest pain and hemoptysis symptoms PCU transfer NRBM, May need BiPAP Broaden antibiotic coverage to Imipenem and Vancomycin Nebs, steroids Aspiration precautions, swallow eval CT chest PE study Pulmo-consult in a.m. RE resp failure Px and updated of plan of care. Total critical care time was 40 minutes. Vital Signs: Date Time Temp Pulse Resp B/P (MAP) Pulse Ox O2 Delivery O2 Flow Rate FiO2 04/03/17 04:00 Non-Rebreather 15.0 04/03/17 03:59 37.8 50 20 119/83 (95) 94 Non-Rebreather 04/03/17 01:48 102 24 93 Non-Rebreather 15.0 04/03/17 00:00 91 Non-Rebreather 15.0 04/02/17 22:24 37.3 106 25 159/84 (109) 76 Nasal Cannula 3.0 04/02/17 22:23 36.9 105 16 93 3.5 04/02/17 21:40 105 16 93 Nasal Cannula 3.5 04/02/17 17:00 97 Nasal Cannula 3.0 98 04/02/17 15:08 36.9 98 20 108/66 (80) 97 Nasal Cannula 3.0 04/02/17 13:25 100 98 04/02/17 10:30 98 Nasal Cannula 2.0 04/02/17 10:01 37.5 04/02/17 08:14 37.6 109 20 125/74 (91) 97 Nasal Cannula 2.0 04/02/17 08:00 97 Nasal Cannula 2.0 Lab Results: Results Past 24 Hours Test 04/02/17 06:39 04/02/17 20:03 04/02/17 20:08 04/02/17 20:20 Range/Units White Blood Count 12.50 14.53 4.8-10.8 K/uL Red Blood Count 3.39 3.55 4.7-6.1 M/uL Hemoglobin 9.6 10.2 14.0-18.0 g/dL Hematocrit 28.8 30.1 42-52 % Mean Corpuscular Volume 85.0 84.8 80-100 fL Mean Corpuscular Hemoglobin 28.3 28.7 25-34 pg Mean Corpuscular Hemoglobin Concent 33.3 33.9 32-36 g/dl RDW Standard Deviation 50.1 49.8 36.4-46.3 fL RDW Coefficient of Variation 16.1 16.1 11.5-14.5 % Platelet Count 222 247 130-400 K/uL Mean Platelet Volume 9.8 9.8 7.4-10.4 fL Sodium Level 134 136-145 mmol/L Potassium Level 3.9 3.5-5.1 mmol/L Chloride Level 100 98-107 mmol/L Carbon Dioxide Level 23 21-32 mmol/L Anion Gap 11.0 3-11 mmol/L Blood Urea Nitrogen 13 7-18 mg/dl Creatinine 0.90 0.60-1.40 mg/dl Est Creatinine Clear Calc Drug Dose 83.6 ml/min Estimated GFR () 111.0 Estimated GFR (Non- 95.8 BUN/Creatinine Ratio 14.3 10-20 Random Glucose 99 70-99 mg/dl Calcium Level 8.2 8.5-10.1 mg/dl Phosphorus Level 1.6 2.5-4.9 mg/dl Magnesium Level 2.2 1.8-2.4 mg/dl Total Creatine Kinase 991 39-308 U/L Troponin I < 0.015 0-0.045 ng/ml Arterial Blood pH 7.46 7.35-7.45 Arterial Blood Partial Pressure CO2 34 35-46 mmHg Arterial Blood Partial Pressure O2 59 80-95 mm/Hg Arterial Blood HCO3 24 19-24 mmol/L Arterial Blood Oxygen Saturation 89.2 90-95 % Arterial Blood Base Excess -0.1 -9-1.8 mEq/L Arterial Blood Gas Delivery 3.5L [place] Test POS POS Test 04/03/17 04:44 04/03/17 04:53 Range/Units
[2017-04-02] MEDS: MIRTAZAPINE TAB 15 MG TAB PO SCH (21:14)
[2017-04-02] MEDS: GUAIFENESIN 600 MG TABCR PO SCH (21:14)
[2017-04-02] MEDS: DOCUSATE SODIUM 100 MG CAP PO SCH (21:14)
[2017-04-02] MEDS ORDERED: ACETAMINOPHEN 325 MG TAB PO PRN (21:15)
[2017-04-02] MEDS ORDERED: METHYLPREDNISOLONE IV 20 MG in SYRINGE 0 ML IV ONE (21:30)
[2017-04-02] MEDS ORDERED: SODIUM CHLORIDE 0.9% IV STA (21:37)
[2017-04-02] MEDS ORDERED: VANCOMYCIN IV STA (21:37)
[2017-04-02] MEDS: IPRATROPIUM BROMIDE NEB SOLN 0.02% 2.5 ML VIAL INH SCH (21:39)
[2017-04-02] MEDS: LEVALBUTEROL 1.25MG/0.5ML NEB INH SCH (21:39)
[2017-04-02] MEDS ORDERED: IMIPENEM/CILASTATIN CONSULT ACTIVE PRN (22:00)
[2017-04-02] MEDS ORDERED: IMIPENEM-CILASTATIN 500 MG in DEXTROSE 5% 100ML 100 ML IV SCH (22:00)
[2017-04-02] MEDS ORDERED: VANCOMYCIN CONSULT ACTIVE PRN (22:00)
[2017-04-02] MEDS: IMIPENEM-CILASTATIN 500 MG in DEXTROSE 5% 100ML 100 ML IV SCH (23:04)
[2017-04-03] VITALS (10 sets, daily range): BP systolic 119–144; BP diastolic 80–84; PULSE 50–103; TEMP 36.4–37.8; O2SAT 90–98
[2017-04-03] MEDS: LEVALBUTEROL 1.25MG/0.5ML NEB INH SCH ×4 (01:48→19:57)
[2017-04-03] MEDS: IPRATROPIUM BROMIDE NEB SOLN 0.02% 2.5 ML VIAL INH SCH ×4 (01:48→19:57)
[2017-04-03] MEDS: OXYCODONE HCL IR 5 MG TAB (IMMEDIATE RELEASE) PO PRN ×3 (02:52→16:11)
[2017-04-03] MEDS ORDERED: LEVALBUTEROL/IPRATROPIUM NEB INH SCH (03:00)
[2017-04-03] MEDS: hydrOXYzine HCL 25 MG TAB PO PRN ×2 (03:05→18:12)
[2017-04-03] MEDS ORDERED: IMIPENEM-CILASTATIN 500 MG in DEXTROSE 5% 100ML 100 ML IV SCH (04:00)
[2017-04-03] MEDS ORDERED: ACETAMINOPHEN 325 MG TAB PO ONE (04:03)
[2017-04-03] MEDS: IMIPENEM-CILASTATIN 500 MG in DEXTROSE 5% 100ML 100 ML IV SCH ×4 (04:55→22:35)
--- NOTE | 2017-04-03 06:12 | Pharmacy Progress Note ---
Pharmacy Abx Initial Consult Date of Service Apr 03, 2017. Pharmacy Dosing Scope Date of Consult: 04/02/17 Consultation requested by: Pharmacy is consulted to initiate Vancomycin and Primixin IV dosing therapy, order appropriate labs and adjust drug dose/frequency. Subjective The patient is a 57 year old male admitted on Apr 01, 2017 at 18:27. Tonight Dr. Sánchez was called for patient complaining of SOB and coughing. He has been coughing when eating and drinking often. He has been on Rocephin and Doxycycline IV. His chest xray showed infiltrates and Dr. Sánchez consulted pharmacy to dose Vancomycin and Primaxin for possible aspiration PNX. Objective Height (Feet): 5 Height (Inches): 6.00 Weight (Kilograms): 75.500 Vital Signs (Past 12Hrs) Vital Signs Past 12 Hours Date Time Temp Pulse Resp B/P (MAP) Pulse Ox O2 Delivery O2 Flow Rate FiO2 04/03/17 04:00 Non-Rebreather 15.0 04/03/17 03:59 37.8 50 20 119/83 (95) 94 Non-Rebreather 04/03/17 01:48 102 24 93 Non-Rebreather 15.0 04/03/17 00:00 91 Non-Rebreather 15.0 04/02/17 22:24 37.3 106 25 159/84 (109) 76 Nasal Cannula 3.0 04/02/17 22:23 36.9 105 16 93 3.5 04/02/17 21:40 105 16 93 Nasal Cannula 3.5 Lab Results (24Hrs) Laboratory Tests (24 Hours) Test 04/03/17 05:55 Micro Results Date/Time Source Procedure Growth Status 04/01/17 15:45 Blood Blood Culture Pending Received 04/01/17 15:45 Blood Blood Culture Pending Received Risk Factors for Resistance * Antimicrobial use within the last 90 days; before this he was on Rocephin and Doxy IV Assessment & Plan Assessment 57 year old male with possible aspiration PNX Plan Vancomycin and Primaxin for treatment of aspiration pnx Vancomycin IV * Loading dose: 1750 mg (23 mg/kg) * Maintenance dose: Vancomyicn 1250mg IV (16.5 mg/kg) every 12 hours * Goal trough level for aspiration pnx : 15-20 mcg/mL * Trough level ordered prior to midnight dose on 04/05/17 * I estimated patients half life at around 9.3 hours and I will order MRSA swab Primaxin 500mg IV q6h ok for CRCL>50ml/min Pharmacy will continue to follow and will adjust dose/frequency as necessary. Thank you.
[2017-04-03 06:24] LABS: HEMATOCRIT 29.8 % (42-52); MEAN CELL VOLUME 84.4 fL (80-100); MEAN CORPUSCULAR HEMOGLOBIN 27.8 pg (25-34); MEAN CORPUSCULAR HGB CONC 32.9 g/dl (32-36); MEAN PLATELET VOLUME 9.7 fL (7.4-10.4); PLATELET COUNT 272 K/uL (130-400); RED BLOOD COUNT 3.53 M/uL (4.7-6.1); WHITE BLOOD COUNT 15.01 K/uL (4.8-10.8)
[2017-04-03 06:52] LABS: BUN/CREATININE RATIO 12.2 (10-20); CREATININE 0.68 mg/dl (0.60-1.40); MAGNESIUM 2.3 mg/dl (1.8-2.4)
[2017-04-03 06:59] LABS: PHOSPHORUS 3.1 mg/dl (2.5-4.9)
[2017-04-03 07:06] LABS: THYROID STIMULATING HORMONE 0.303 uIu/ml (0.300-4.500)
[2017-04-03] MEDS: BuPROPion SR 100 MG TABCR PO SCH ×2 (07:44→21:11)
[2017-04-03] MEDS: METHOCARBAMOL 500 MG TAB PO SCH ×3 (07:44→21:11)
[2017-04-03] MEDS: MELOXICAM 7.5 MG TAB PO SCH ×2 (07:44→16:12)
[2017-04-03] MEDS: PANTOprazole SOD 40 MG TAB PO SCH ×2 (07:44→21:12)
[2017-04-03] MEDS: SENNA 8.6 MG TAB PO SCH (07:44)
[2017-04-03] MEDS: DOCUSATE SODIUM 100 MG CAP PO SCH ×2 (07:45→21:09)
[2017-04-03] MEDS: GUAIFENESIN 600 MG TABCR PO SCH ×2 (07:45→21:18)
[2017-04-03] MEDS: BusPIRone 15 MG TAB PO SCH ×3 (07:45→21:10)
[2017-04-03] MEDS: TOLTERODINE TARTRATE LA 2 MG CAPCR PO SCH ×2 (07:45→21:10)
[2017-04-03] MEDS: GABAPENTIN 800 MG TAB PO SCH ×4 (07:45→21:10)
[2017-04-03] MEDS: NICOTINE 21 MG/24 HR TDSY TD SCH (07:45)
[2017-04-03] MEDS: DULOXETINE HCL 60 MG CAP PO SCH (07:45)
[2017-04-03] MEDS ORDERED: FUROSEMIDE INJ 20 MG in SYRINGE 0 ML IV ONE (08:00)
--- NOTE | 2017-04-03 08:44 | DIAGNOSTIC IMAGING REPORT ---
(CHEST FOR PE) ANGIO WITH CT DOSE: 328.50 mGy.cm HISTORY: 57 years-old Male presents with acute chest pain and hemoptysis. Fever and cough. Follow-up pneumonia. TECHNIQUE: Multiple CTA images of the chest were obtained after the intravenous administration of 93 ml Optiray 320. Coronal and sagittal MIPS were obtained from the axial data set and were submitted for review. A dose lowering technique was utilized adhering to the principles of ALARA. COMPARISON: Chest radiograph 04/02/2017, CTA chest 11/22/2016. FINDINGS: CTA: There is adequate opacification of the pulmonary arteries to the level of the subsegmental branches without convincing evidence of acute pulmonary embolism. No aortic dissection or aneurysm.Heart size is normal. Evaluation of the pulmonary arterial subsegmental branches is mildly limited secondary to respiratory motion. CT CHEST: No dominant thyroid nodule identified. Mild subcarinal, AP window and right hilar adenopathy is noted, likely reactive. Nodes measure up to approximately 1.1 cm in short axis. Small bilateral pleural effusions are present. There is no pneumothorax. Multilobar distribution of bronchial wall thickening is present in conjunction with patchy multifocal multilobar groundglass and consolidative opacities with interlobular septal thickening. Confluent airspace opacities are seen most prominently within the lower lobes. These findings appear stable from comparison chest radiograph. Imaged upper abdominal structures demonstrate no acute abnormality. Bones appear intact. IMPRESSION: 1. No acute pathology or evidence of pulmonary thromboembolic disease. Evaluation of the subsegmental branches however is mildly limited secondary to respiratory motion. 2. Small bilateral pleural effusions with multifocal multilobar distribution of groundglass and consolidative opacities with interlobular septal thickening suggests multifocal pneumonia with recent history of cough and pneumonia. Pulmonary edema however may have a similar appearance. These findings appear stable from comparison chest radiograph. 3. Mild mediastinal and hilar adenopathy, likely reactive. The above report was generated using voice recognition software. It may contain grammatical, syntax or spelling errors. Electronically signed by: Alfie Ptety M.D. 04/03/2017 8:43 AM Dictated Date/Time: 04/03/2017 8:31 AM
[2017-04-03] MEDS ORDERED: LORAZEPAM 2 MG/ML 1 ML VIAL IV STA (09:36)
--- NOTE | 2017-04-03 09:58 | Progress Note ---
Subjective Date of Service: Apr 03, 2017. Subjective Pt evaluation today including: conversation w/ patient, physical exam, lab review, review of studies, review of inpatient medication list Saw/examined the patient in room 241-1 He had a bad night last night; became short of breath - excessive coughing CXR showed worsening multifocal pneumonia ABGs suggested hypoxia even with O2 on was transferred to [facility] and placed on a NRB, abx. expanded for broader coverage I saw him this morning; and he is more concerned about his anxiety and pain medications; would like things through the IV; I let him know that his pain medications should remain the same. He has mild respiratory distress; but denies fevers/chills, states he has pain all over including chest; but when asked further, he states he has some chest tightness when he is coughing, but none when he is not. Problem List Medical Problems: (1) Abdominal pain Status: Acute (2) Acute delirium Status: Acute (3) Back pain Status: Acute (4) Back pain Status: Acute (5) Back pain Status: Acute (6) Central chest pain Status: Acute (7) Change in mental status Status: Acute (8) Chronic back pain Status: Chronic (9) Chronic back pain Status: Acute (10) Chronic low back pain Status: Acute (11) Contusion of multiple sites Status: Acute (12) Dehydration Status: Acute (13) Dehydration Status: Acute (14) Dehydration Status: Acute (15) Dehydration Status: Acute (16) Fall Status: Acute (17) Fall Status: Acute (18) Frequent falls Status: Acute (19) Headache Status: Acute (20) History of rhabdomyolysis Status: Acute (21) Hypoglycemia Status: Acute (22) Hypoxia Status: Acute (23) Left hip pain Status: Acute (24) Left shoulder pain Status: Acute (25) Leg weakness Status: Acute (26) Low back pain Status: Acute (27) Low back pain Status: Acute (28) Lower back pain Status: Acute (29) Multifocal pneumonia Status: Acute (30) Neck pain Status: Acute (31) Rhabdomyolysis Status: Acute (32) Rhabdomyolysis Status: Acute (33) Rib pain on left side Status: Acute (34) Symptoms involving urinary system Status: Acute (35) Tachycardia Status: Acute (36) Weakness Status: Acute Review of Systems Constitutional: No fever, No chills Respiratory: + cough, + sputum, + shortness of breath Cardiac: No chest pain, No edema, No palpitations Psychiatric: + depression symptoms, + anxiety, No insomnia Medications Current Inpatient Medications Medications (Trade) Dose Ordered Sig/Gurpreet Route Start Time Stop Time Status Last Admin Dose Admin Polyethylene (Miralax Powder Packet) 17 gm DAILY PRN PO 04/01/17 18:30 05/01/17 18:29 04/02/17 10:37 17 GM Ondansetron HCl (Zofran Inj) 4 mg Q6H PRN IV 04/01/17 18:30 05/01/17 18:29 Nicotine (Nicoderm Cq 21MG Patch) 1 patch DAILY TD 04/01/17 18:45 05/01/17 18:44 04/03/17 07:45 1 PATCH Acetaminophen/ Butalbital/ Caffeine (Fioricet Tab) 1 tab BID PRN PO 04/01/17 19:00 05/01/17 18:59 Amphetamine Aspartate/ Amphetam Sulf (Amphetamine Aspartate/Amph Sulf/Dextramphet) 20 mg DAILY PO 04/02/17 08:00 04/16/17 08:59 04/02/17 08:49 20 MG Bupropion HCl (Wellbutrin-Sr Tab) 200 mg BID PO 04/01/17 20:00 05/01/17 20:59 04/03/17 07:44 200 MG Diphenoxylate HCl/ Atropine (Lomotil Tab) 1 tab UD PRN PO 04/01/17 19:00 05/01/17 18:59 Duloxetine HCl (Cymbalta Cap) 60 mg DAILY PO 04/02/17 08:00 05/02/17 08:59 04/03/17 07:45 60 MG Gabapentin (Neurontin Tab) 800 mg QID PO 04/01/17 20:00 05/01/17 20:59 04/03/17 07:45 800 MG Meloxicam (Mobic Tab) 7.5 mg BIDM PO 04/01/17 20:00 05/01/17 19:59 04/03/17 07:44 7.5 MG Methocarbamol (Robaxin Tab) 500 mg TID PO 04/01/17 20:00 05/01/17 20:59 04/03/17 07:44 500 MG Ondansetron HCl (Zofran Tab) 4 mg Q8 PRN PO 04/01/17 19:00 05/01/17 18:59 Pantoprazole Sodium (Protonix Tab) 40 mg BID PO 04/01/17 20:00 05/01/17 20:59 04/03/17 07:44 40 MG Tolterodine Tartrate (Detrol LA Cap) 2 mg BID PO 04/01/17 20:00 05/01/17 20:59 04/03/17 07:45 2 MG Buspirone HCl (BusPAR TAB) 30 mg TID PO 04/01/17 20:00 05/01/17 20:59 04/03/17 07:45 30 MG Mirtazapine (Remeron Tab) 15 mg HS PO 04/01/17 21:00 05/01/17 20:59 04/02/17 21:14 15 MG Rizatriptan Benzoate (Rizatriptan Benzoate Odt) 10 mg UD PRN PO 04/01/17 19:00 05/01/17 18:59 Oxycodone HCl (Roxicodone Immediate Rel Tab) 20 mg QID PRN PO 04/01/17 19:00 04/15/17 18:59 04/03/17 07:54 20 MG Sodium Chloride ([place] Nasal [place]) 1 sprays PRN PRN NA 04/01/17 21:45 05/01/17 21:44 04/02/17 00:50 1 SPRAYS Senna (Senokot Tab) 8.6 mg QAM PO 04/02/17 13:00 05/02/17 12:59 04/03/17 07:44 8.6 MG Docusate Sodium (coLACE CAP) 100 mg BID PO 04/02/17 20:00 05/02/17 19:59 04/03/17 07:45 100 MG Hydroxyzine HCl (Vistaril Tab) 25 mg Q6H PRN PO 04/03/17 02:00 05/01/17 18:59 04/03/17 03:05 25 MG Benzonatate (Tessalon Perles Cap) 100 mg TID PRN PO 04/02/17 20:15 05/02/17 20:14 Guaifenesin (Mucinex Contr Rel Tab) 600 mg Q12 PO 04/02/17 21:00 05/02/17 20:59 04/03/17 07:45 600 MG Ipratropium [place] (Atrovent 0.02% 0.5MG/2.5ML Neb) 0.5 mg Q6R INH 04/02/17 21:00 05/02/17 20:59 04/03/17 07:22 0.5 MG Levalbuterol (Xopenex 1.25MG/ 0.5ML Neb) 1.25 mg Q6R INH 04/02/17 21:00 05/02/17 20:59 04/03/17 07:22 1.25 MG Acetaminophen (Tylenol Tab) 650 mg Q4H PRN PO 04/02/17 21:15 05/02/17 21:14 Imipenem/ Cilastatin Sodium (Consult) 1 ea UD PRN N/A 04/02/17 22:00 05/02/17 21:59 Vancomycin HCl (Consult) 1 ea UD PRN N/A 04/02/17 22:00 05/02/17 21:59 Imipenem/ Cilastatin Sodium 500 mg/Dextrose 120 ml @ 100 mls/hr Q6H IV 04/03/17 04:00 04/09/17 21:59 04/03/17 09:19 100 MLS/HR Prednisone (PredniSONE TAB) 40 mg DAILY PO 04/03/17 09:00 04/08/17 08:59 04/03/17 07:45 40 MG Vancomycin HCl 1250 mg/Sodium Chloride 275 ml @ 125 mls/hr Q12H IV 04/03/17 12:00 04/10/17 11:59 Lorazepam (Ativan Inj) 0.5 mg NOW STAT IV 04/03/17 09:36 04/03/17 09:37 UNV Objective Vital Signs Date Time Temp Pulse Resp B/P (MAP) Pulse Ox O2 Delivery O2 Flow Rate FiO2 04/03/17 08:00 Oxymask 6.0 04/03/17 07:47 36.8 98 24 134/81 (98) 98 Non-Rebreather 15.0 04/03/17 07:22 97 22 98 Non-Rebreather 15.0 04/03/17 04:00 Non-Rebreather 15.0 04/03/17 03:59 37.8 50 20 119/83 (95) 94 Non-Rebreather 04/03/17 01:48 102 24 93 Non-Rebreather 15.0 04/03/17 00:00 91 Non-Rebreather 15.0 04/02/17 22:24 37.3 106 25 159/84 (109) 76 Nasal Cannula 3.0 04/02/17 22:23 36.9 105 16 93 3.5 04/02/17 21:40 105 16 93 Nasal Cannula 3.5 04/02/17 17:00 97 Nasal Cannula 3.0 98 04/02/17 15:08 36.9 98 20 108/66 (80) 97 Nasal Cannula 3.0 04/02/17 13:25 100 98 04/02/17 10:30 98 Nasal Cannula 2.0 04/02/17 10:01 37.5 Physical Exam General Appearance: + mild distress (mild respiratory distress) Respiratory/Chest: + respiratory distress, + decreased breath sounds Cardiovascular: no murmur, + tachycardia Abdomen: non tender, soft, + hernia (ventral hernia, reducible) Extremities: normal range of motion, non-tender, normal inspection, no pedal edema, no calf tenderness Neurologic/Psychiatric: alert, + motor weakness (chronic motor weakness) Laboratory Results Last 24 Hours Test 04/02/17 20:03 04/02/17 20:08 04/02/17 20:20 04/03/17 05:55 White Blood Count 14.53 K/uL 15.01 K/uL Red Blood Count 3.55 M/uL 3.53 M/uL Hemoglobin 10.2 g/dL 9.8 g/dL Hematocrit 30.1 % 29.8 % Mean Corpuscular Volume 84.8 fL 84.4 fL Mean Corpuscular Hemoglobin 28.7 pg 27.8 pg Mean Corpuscular Hemoglobin Concent 33.9 g/dl 32.9 g/dl RDW Standard Deviation 49.8 fL 50.7 fL RDW Coefficient of Variation 16.1 % 16.4 % Platelet Count 247 K/uL 272 K/uL Mean Platelet Volume 9.8 fL 9.7 fL Troponin I < 0.015 ng/ml Arterial Blood pH 7.46 Arterial Blood Partial Pressure CO2 34 mmHg Arterial Blood Partial Pressure O2 59 mm/Hg Arterial Blood HCO3 24 mmol/L Arterial Blood Oxygen Saturation 89.2 % Arterial Blood Base Excess -0.1 mEq/L Arterial Blood Gas Delivery 3.5L Crispin Test POS Sodium Level 135 mmol/L Potassium Level 4.0 mmol/L Chloride Level 103 mmol/L Carbon Dioxide Level 24 mmol/L Anion Gap 8.0 mmol/L Blood Urea Nitrogen 8 mg/dl Creatinine 0.68 mg/dl Est Creatinine Clear Calc Drug Dose 122.7 ml/min Estimated GFR () 124.6 Estimated GFR (Non- 107.5 BUN/Creatinine Ratio 12.2 Random Glucose 141 mg/dl Calcium Level 8.0 mg/dl Phosphorus Level 3.1 mg/dl Magnesium Level 2.3 mg/dl Total Creatine Kinase 707 U/L Pro-B-Type Natriuretic Peptide 2831 pg/ml Thyroid Stimulating Hormone (TSH) 0.303 uIu/ml Assessment and Plan This is a 57 year old male with a PMH of transverse myelitis, depression/anxiety , recurrent rhabdomyolysis, long-term narcotic use, urinary retention presents with fever, cough, shortness of breath - found to have pneumonia Sepsis secondary to CAP 04/03 worsening condition overnight CXR suggested worsening multifocal pneumonia ABGs with low PaO2 patient transferred to tele antibiotics expanded to Vanco and Primaxin BNP was elevated, so he was given IV Lasix x1 currently on a NRB - nebs PRN Bipap ordered if condition worsens echo pending pulmonary consultation pending for further input 04/02 patient presented with WBC and fevers as well as tachycardia CXR suggests LL lobe Pneumonia started on Rocephin and Doxycycline white count is improving, he feels slightly better still has some shortness of breath today will stop IVFs Constipation patient's abdomen is distended decreased bowel sounds will give senna, Colace and Miralax patient has had issues with this in the past due to narcotic use Transverse Myelitis Chronic Narcotic Use continue home narcotic use at this point, patient is requesting stronger medications, but I do not believe we should change it Depression/Anxiety continue home medications given one dose of IV Ativan due to anxiety DVT ppx subq heparin FULL CODE
--- NOTE | 2017-04-03 11:36 | ECHOCARDIOGRAM REPORT ---
*NOTICE TO RECEIVING DEMOCRAT AGENCY This information is strictly Confidential and protected under [place] law. [place] law prohibits you from making any further disclosure of this information unless further disclosure is expressly permitted by the written consent of the person to whom it pertains or is authorized by law. A general authorization for the release of medical or other information is not sufficient for this purpose. Hospital accepts no responsibility if the information is made available to any other person, INCLUDING THE PATIENT. Interpretation Summary * Name: ROBYN YODER Study Date: 04/03/2017 10:03 AM BP: 134/81 mmHg * Patient Location: C.2T\S\S241\S\1 HR: 99 * : 1960 (M/d/yyyy) Gender: Male Height: 66 in * Age: 57 yrs Ethnicity: CA Weight: 178 lb * Ordering Physician: Bright Sánchez * Referring Physician: Self, Referred * Performed By: Yessy Lewis RCS * * Reason For Study: SOB * BSA: 1.9 m2 * -- Conclusions -- * The left ventricle is normal in size. * There is borderline concentric left ventricular hypertrophy. * Left ventricular systolic function is normal. * The left ventricular wall motion is normal. * Ejection Fraction = 60-65%. * Grade I diastolic dysfunction, (abnormal relaxation pattern). Procedure Details * A complete two-dimensional transthoracic echocardiogram was performed (2D, M-mode, Doppler and color flow Doppler). Left Ventricle * The left ventricle is normal in size. * There is borderline concentric left ventricular hypertrophy. * Left ventricular systolic function is normal. * Ejection Fraction = 60-65%. * The left ventricular wall motion is normal. Right Ventricle * The right ventricle is normal in size and function. Atria * The left atrial size is normal. * Right atrial size is normal. * No ASD detected; PFO is not assessed. Mitral Valve * The mitral valve is normal. * There is no mitral valve stenosis. * There is trace mitral regurgitation. Tricuspid Valve * The tricuspid valve is normal. * There is no tricuspid stenosis. * There is mild tricuspid regurgitation. Aortic Valve * The aortic valve is trileaflet. * No hemodynamically significant valvular aortic stenosis. * No aortic regurgitation is present. Pulmonic Valve * The pulmonic valve is not well visualized. Great Vessels * The aortic root is normal size. Pericardium/Pleural * There is no pericardial effusion. Great Vessels * Normal inferior vena cava diameter and respiratory variation suggests normal central venous pressure. Left Ventricular Diastolic Function * Grade I diastolic dysfunction, (abnormal relaxation pattern). MMode 2D Measurements and Calculations IVSd 1.2 cm IVSs 1.3 cm LVIDd 3.8 cm LVIDs 2.4 cm LVPWd 1.2 cm LVPWs 1.3 cm IVS/LVPW 0.99 FS 36.8 % EDV(Teich) 62.6 ml ESV(Teich) 20.4 ml EF(Teich) 67.4 % EDV(cubed) 55.6 ml ESV(cubed) 14.1 ml EF(cubed) 74.7 % % IVS thick 16.0 % % LVPW thick 12.9 % LV mass(C)d 147.2 grams LV mass(C)dI 77.3 grams/m\S\2 LV mass(C)s 97.7 grams LV mass(C)sI 51.3 grams/m\S\2 SV(Teich) 42.2 ml SI(Teich) 22.2 ml/m\S\2 SV(cubed) 41.6 ml SI(cubed) 21.8 ml/m\S\2 Ao root diam 3.0 cm Ao root area 7.0 cm\S\2 LA dimension 3.6 cm LA/Ao 1.2 LVOT diam 2.0 cm LVOT area 3.2 cm\S\2 Doppler Measurements and Calculations MV E max palmira 77.6 cm/sec MV A max palmira 106.2 cm/sec MV E/A 0.73 MV P1/2t max palmira 97.7 cm/sec MV P1/2t 57.6 msec MVA(P1/2t) 3.8 cm\S\2 MV dec slope 496.4 cm/sec\S\2 MV dec time 0.25 sec Ao V2 max 158.8 cm/sec Ao max PG 10.1 mmHg Ao max PG (full) 3.8 mmHg LETY(V,A) 2.5 cm\S\2 LETY(V,D) 2.5 cm\S\2 LV V1 max PG 6.3 mmHg LV V1 max 125.6 cm/sec PA V2 max 116.5 cm/sec PA max PG 5.4 mmHg PI max palmira 186.0 cm/sec PI max PG 13.8 mmHg PI dec slope 326.9 cm/sec\S\2 PI P1/2t 166.6 msec TR max palmira 263.7 cm/sec
[2017-04-03] MEDS: AMPHETAMINE ASP/SULF/DEXTRAMPH 20 MG TAB PO SCH ×2 (12:16→12:18)
[2017-04-03] MEDS: VANCOMYCIN INJ 1,250 MG in SODIUM CHLORIDE 0.9% 250ML 250 ML IV SCH (12:21)
--- NOTE | 2017-04-03 12:30 | Pulmonary Consultation ---
History General Date of Service: Apr 03, 2017. Stated Complaint: CC: Hypoxemia/SOB, Cough< Abnormal CT Thorax HPI The patient is a 57 year old male who presents to [facility] with complaints of Community Acquired Pneumonia. The patient's primary care provider is Darren Flores M.D.. HPI: 57-year-old male admitted through the [facility] Emergency room for shortness of breath, abnormal chest x-ray, semi- productive cough and altered mental status. Patient has past medical history significant for: Transverse myelitis (chronic spasticity/quadriparesis), chronic tobacco use, ADD, chronic pain, peptic ulcer/ GERD, Prior to his admission the patient was treated for urinary tract infection with Bactrim ending the day prior to his admission. During today's examination the patient still notes dyspnea at rest. Denies: Chest pain, palpitation, headache, dizziness, lightheadedness, recent travel, sick contacts, productive cough, classic cardiac chest pain Current workup: EKG: Sinus rhythm rate of 96 in no signs of acute ischemia WBC: 13K15K H/H: 05/29 PLT: [id number] INR: 1.0 aPTT: 32.3 Na: 970164 Ca: 8.68.0 CK: 7684344 Phos: 1.63.1 BNP: 2831 (H) ABG( 04/02/17) 7.46/34/59/24 (3.5L) Aa: 103 PaO2/FiO2: 197 Urine tox: Benzodiazepines, MDMA (Ecstasy), Opiates Pending: Urine Legionella antigen Radiology CXR 04/01/2017 compared to 12/09/2016 RUL infiltrate and LLL with peribronchial cuffing, cephalization Improvement of the right lower lobe and left lower lobe infiltrate CXR 017 compared to 04/01/2017 Increased RLL, RUL, left hemithorax opacifications Lucency in the left lower lobe CTA 04/03/[address] angiogram 11/22/2016 Mediastinal and hilar adenopathy Increased Mosaic attenuation greatest in the lower and mid lobe Cardiac Echo 04/03/17) LV: EF=60-65%, grade 1 diastolic dysfunction RV: WNL Atria: WNL No ASD noted Valves: IVC: Normal sniff variation Current treatment: 1. Vancomycin 2. Prednisone 40 milligrams daily 3. Imipenem/cilastatin 4. Guaifenesin 5. Xopenex/ipratropium Previous Work-Up: PFT (05/18/2009) Spirometry: WNL Bronchodilator: No significant response Lung volumes: Within normal limits Diffusion: Within normal limits Interpretation: Normal pulmonary function studies Microbiology: Right arm 03/21/2014: MSSA, Corynebacterium Species, Pasteurella Multocida Right elbow 05/02/2014: Corynebacterium x2 species Urine 12/07/2014: Coag-negative staph penicillin sensitive Urine 04/05/2015: Corynebacterium Urine 08/24/2015: Coag-negative staph (oxacillin resistant) Blood 08/25/2015: Coag-negative staph x1 Urine 10/20/2015: Coag-negative staph (oxacillin resistant) Urine 05/10/2016: Enterococcus faecalis Right knee 06/03/2016: MSSA, Corynebacterium Echocardiogram 08/27/2015 LV: EF=60-65%, RV: TAPSE > 1.5cm Atria: WNL Valves: trace TR Historian: patient, EMS Review of Systems Constitutional: reports: malaise, weakness Eyes: reports: no symptoms ENT: reports: no symptoms Cardiovascular: reports: as stated in HPI Respiratory: reports: as stated in HPI Gastrointestinal: reports: constipation Genitourinary - Male: reports: no symptoms Musculoskeletal: reports: no symptoms Integumentary: reports: no symptoms Neurologic: reports: paresthesia Psychiatric: reports: no symptoms Endocrine: no symptoms Hematologic / Lymphatic: no symptoms Allergic / Immunologic: poor healing Past Medical History Past Medical History: ADD (attention deficit disorder) without hyperactivity Anxiety Asthma Benign hypertension Biceps tendon tear Bipolar disorder Chronic pain Cervical radiculopathy at C8 Chronic pain Chronic peptic ulcer GERD Tobacco abuse Depressive disorder Diverticulosis Esophageal reflux Myositis Neurogenic bladder Neuropathy, ulnar nerve Complete Tear Of Left Rotator Cuff Tendon Polyneuropathy Prepatellar bursitis Quadriplegia, functional Sacral radiculopathy Testicular hypofunction Transverse myelitis (mid cervical spine August 2005) Chronic spasticity Quadriparesis Past Surgical History: Arthrocentesis Injection Of Subacromial Bursa Dental Surgery Decompression of the ulnar nerve at the elbow Family History Anxiety disorder MOTHER Cancer Diabetes mellitus MOTHER FH: CAD (coronary artery disease) FATHER BROTHER FH: CHF (congestive heart failure) FATHER FH: HTN (hypertension) FH: dementia FATHER FH: diabetes mellitus FH: kidney failure Heart disease Hypertension MOTHER Kidney disease SISTER Mother Hypertension Father Heart Disease Sister Allergy kidney disease Brother Allergy Family History Heart Disease Hypertension Social History Current Smoker Denied: History of Drug Use Marital History - Currently Unemployed Previous notes positive history of drug use Hx Tobacco Use In Past Year?: Yes Smoking Status: Current Every Day Smoker (upwards of 1 ppd) Marital status: Housing status: lives with family Occupational Status: disabled Immunizations History of Influenza Vaccine: No History of Tetanus Vaccine?: Yes History of Pneumococcal: No History of Hepatitis B Vaccine: No History of MDRO History of MDRO: No Allergies Coded Allergies: Ciprofloxacin (Verified Allergy, Intermediate, RASH, 04/01/17) rash / urticaria proximal to IV site after infusion 04/07/15 Penicillins (Verified Allergy, Intermediate, RASH, 04/01/17) Current Medications Reported Home Medications Medications Dose Route/Sig Max Daily Dose Days Date Category Dose Instructions Adderall 20MG (Amphetamine-Dextroamphetamine 20MG) 1 Tab Tab 20 Mg PO DAILY 04/01/17 Reported Bactrim 400MG/80MG (Trimethoprim/Sulfamethoxazole) Tab Unknown Dose PO Q12H 04/01/17 Reported Robaxin (Methocarbamol) 500 Mg Tab 500 Mg PO TID 04/01/17 Reported Remeron Soltab (Mirtazapine) 15 Mg Soltab 15 Mg PO HS 04/01/17 Reported Buspirone Hcl 30 Mg Tab 30 Mg PO TID 01/28/17 Reported Mobic (Meloxicam) 7.5 Mg Tab 7.5 Mg PO BID 01/28/17 Reported Oxycodone Hcl 20 Mg Tab 20 Mg PO QID PRN 01/28/17 Reported Zofran (Ondansetron HCl) 4 Mg Tab 4 Mg PO Q8 PRN 01/09/17 Reported Hydroxyzine Pamoate (Hydroxyzine HCl) 25 Mg Tab 25 Mg PO Q8 PRN 11/22/16 Reported Wellbutrin Sr (Bupropion HCl) 200 Mg Ertab 200 Mg PO BID 08/26/16 Reported Aspirin Ec (Aspirin) 81 Mg Tab 81 Mg PO DAILY 05/26/16 Reported Testosterone Cypionate 200 Mg/Ml Inj 100 Mg INJ WK 05/26/16 Reported Rizatriptan Benzoate 10 Mg Tab 10 Mg PO UD PRN 05/26/16 Reported TAKE 1 TABLET AT ONSET OF HEADACHE MAY REPEAT EVERY 2 HOURS IF NEEDED, MAXIMUM 2 TABLETS IN 24 HOURS Detrol LA (Tolterodine Tartrate) 2 Mg Capcr 2 Mg PO BID 02/08/16 Reported Cialis (Tadalafil) 5 Mg Tab 5 Mg PO UD PRN 02/08/16 Reported Lomotil (Diphenoxylate HCl/Atropine) Tab 1 Tab PO UD PRN 07/14/15 Reported TAKE 2 TABLETS AT ONSET OF DIARRHEA THEN 1 TABLET AFTER EACH EPISODE. MAXIMUM 8 TABLETS PER DAY. Duloxetine HCl 60 Mg Cap 60 Mg PO DAILY 02/05/15 Reported Pantoprazole Sodium (Pantoprazole) 40 Mg Tab 40 Mg PO BID 05/02/14 Reported Gabapentin 800 Mg Tab 800 Mg PO QID 05/02/14 Reported Fioricet (Acetaminophen/Butalbital/Caffeine) 1 Ea Tab 1-2 Tabs PO BID PRN 02/16/14 Reported Physical Physical Exam Vital Signs: Date Time Temp Pulse Resp B/P (MAP) Pulse Ox O2 Delivery O2 Flow Rate FiO2 04/03/17 12:04 37.0 94 20 135/84 (101) 90 Oxymask 9.0 04/03/17 08:00 Oxymask 6.0 04/03/17 07:47 36.8 98 24 134/81 (98) 98 Non-Rebreather 15.0 04/03/17 07:22 97 22 98 Non-Rebreather 15.0 04/03/17 04:00 Non-Rebreather 15.0 04/03/17 03:59 37.8 50 20 119/83 (95) 94 Non-Rebreather 04/03/17 01:48 102 24 93 Non-Rebreather 15.0 04/03/17 00:00 91 Non-Rebreather 15.0 04/02/17 22:24 37.3 106 25 159/84 (109) 76 Nasal Cannula 3.0 04/02/17 22:23 36.9 105 16 93 3.5 04/02/17 21:40 105 16 93 Nasal Cannula 3.5 04/02/17 17:00 97 Nasal Cannula 3.0 98 04/02/17 15:08 36.9 98 20 108/66 (80) 97 Nasal Cannula 3.0 04/02/17 13:25 100 98 General Appearance: moderate distress Head: NORMOCEPHALIC, ATRAUMATIC Eyes: PERRLA, NO DISCHARGE, EOMI, other ENT: NORMAL EAR EXAM, NORMAL NASAL EXAM, NORMAL MOUTH EXAM, other (Dry mucous membranes) Neck: NORMAL RANGE OF MOTION, NO TENDERNESS, TRACHEA MIDLINE, NO STRIDOR Respiratory: other (Rhonchi bilaterally greatest in the anterior left upper and middle right lower hemithoraces) Cardiovasular: REGULAR RATE/RHYTHM, NORMAL S1S2, NO M/G/R, NO MURMUR, NO GALLOP Abdomen: NON TENDER, NORMAL BOWEL SOUNDS, NO REBOUND, NO MASSES, NO GUARDING Genitourinary - Male: EXTERNAL GENITALIA NORMAL Back: NORMAL INSPECTION, NO MIDLINE TENDERNESS, NO CVA TENDERNESS, NO PARAVERTEBRAL TTP Upper Extremities: other (Bilateral upper extremity healing scars with right index finger and left index finger small ulcerations) Lower Extremities: other (Bilateral lower extremities healing scars with healing wound over the right tibial tuberosity) Pulses: carotid (R) (2+), carotid (L) (2+), posterior tibial (R), posterior tibial (L) (2+) Neuro: ALERT, ORIENTED x 3, global weakness, other (Notable decreased strength especially in the left upper extremity at 4-5) Reflexes: biceps (R) (1+), bicpes (L) (2+), achilles (R) (1+), achilles (L) (1+ ) Babinski Testing: right (downgoing), left (equivocal) Psychiatric: flat affect Diagnostics Labs Results Past 24 Hours Test 04/02/17 20:03 04/02/17 20:08 04/02/17 20:20 04/03/17 05:55 Range/Units White Blood Count 14.53 15.01 4.8-10.8 K/uL Red Blood Count 3.55 3.53 4.7-6.1 M/uL Hemoglobin 10.2 9.8 14.0-18.0 g/dL Hematocrit 30.1 29.8 42-52 % Mean Corpuscular Volume 84.8 84.4 80-100 fL Mean Corpuscular Hemoglobin 28.7 27.8 25-34 pg Mean Corpuscular Hemoglobin Concent 33.9 32.9 32-36 g/dl RDW Standard Deviation 49.8 50.7 36.4-46.3 fL RDW Coefficient of Variation 16.1 16.4 11.5-14.5 % Platelet Count 247 272 130-400 K/uL Mean Platelet Volume 9.8 9.7 7.4-10.4 fL Troponin I < 0.015 0-0.045 ng/ml Arterial Blood pH 7.46 7.35-7.45 Arterial Blood Partial Pressure CO2 34 35-46 mmHg Arterial Blood Partial Pressure O2 59 80-95 mm/Hg Arterial Blood HCO3 24 19-24 mmol/L Arterial Blood Oxygen Saturation 89.2 90-95 % Arterial Blood Base Excess -0.1 -9-1.8 mEq/L Arterial Blood Gas Delivery 3.5L Crispin Test POS POS Sodium Level 135 136-145 mmol/L Potassium Level 4.0 3.5-5.1 mmol/L Chloride Level 103 98-107 mmol/L Carbon Dioxide Level 24 21-32 mmol/L Anion Gap 8.0 3-11 mmol/L Blood Urea Nitrogen 8 7-18 mg/dl Creatinine 0.68 0.60-1.40 mg/dl Est Creatinine Clear Calc Drug Dose 122.7 ml/min Estimated GFR () 124.6 Estimated GFR (Non- 107.5 BUN/Creatinine Ratio 12.2 10-20 Random Glucose 141 70-99 mg/dl Calcium Level 8.0 8.5-10.1 mg/dl Phosphorus Level 3.1 2.5-4.9 mg/dl Magnesium Level 2.3 1.8-2.4 mg/dl Total Creatine Kinase 707 39-308 U/L Pro-B-Type Natriuretic Peptide 2831 0-900 pg/ml Thyroid Stimulating Hormone (TSH) 0.303 0.300-4.500 uIu/ml Microbiology Results 04/03/17 MRSA DNA Surveillance Screen - Final, Complete Specimen Negative for MRSA by DNA Probe Diagnostic Radiology CXR 04/01/2017 compared to 12/09/2016 RUL infiltrate and LLL with peribronchial cuffing, cephalization Improvement of the right lower lobe and left lower lobe infiltrate CXR 017 compared to 04/01/2017 Increased RLL, RUL, left hemithorax opacifications Lucency in the left lower lobe CTA 04/03/[address] angiogram 11/22/2016 Mediastinal and hilar adenopathy Increased Mosaic attenuation greatest in the lower and mid lobe EKG Sinus rhythm rate of 96 in no signs of acute ischemia Impression Assessment and Plan 57-year-old gentleman consult on for abnormal CT of the thorax with hypoxemia associated shortness breath: 1. Shortness of breath: At this time will switch the patient over to a high- flow system to increase his oxygen delivery as he is showing no signs of CO2 retention initiation of BiPAP is not warranted at this time. 2. Abnormal CT/Hypoxia: Patient's CT scan is a diffuse mosaic pattern bilaterally with no signs of vascular oligemia suggesting chronic thromboembolic pulmonary hypertension. At this time the most likely diagnosis would be bronchiolitis obliterans, chronic eosinophilic pneumonitis, hypersensitivity pneumonitis or cryptogenic organizing pneumonia. Due to this we will send off a rheumatologic and vascular workup along with EDILMA studies for Strongyloides in paragon my executive assistant coccidioidomycosis evaluation. As this patient is not showing any signs of acute infection I do believe continuation of his current prednisone dose at 0.5 mg/kg is appropriate. The patient does require a bronchoscopy for evaluation of BAL eosinophils as well as transbronchial biopsy at this time but is too hypoxic to undergo this procedure. 3. ID: I agree with current antibiotic treatment with vancomycin as well as Imipenem/cilastatin S he has had multiple atypical infections with pasteurella, corynebacterium, MSSA, coag-negative staph and Enterococcus faecalis for multiple different origins. Echocardiogram performed today showed no signs of valvular involvement but if this patient does not showed improvement with current therapy suggest we perform transesophageal echocardiogram for definitive rule out. Also patient has agreed to perform HIV study.
[2017-04-03] MEDS: AZITHROMYCIN IV 500 MG in DEXTROSE 5% 250ML 250 ML IV SCH (16:53)
[2017-04-03] MEDS ORDERED: NURSING VERBAL MED ORDER ONE (18:30)
[2017-04-03] MEDS ORDERED: LORAZEPAM 2 MG/ML 1 ML VIAL IV ONE (19:00)
--- NOTE | 2017-04-03 19:09 | Medical Consult ---
Consultation Date of Consultation: Apr 03, 2017. 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 He came to the emergency department worries found to have bilateral infiltrates on chest x-ray, as well as elevated CPK and liver enzyme levels. He has been started empirically on combination of vancomycin and imipenem. Cultures thus far are pending. Patient was hospitalized in November for pneumonia, without obvious pathogen identified, and has had several admissions for altered mental status as well as elevations of CPK. No other significant travel or exposure history. Past Medical/Surgical History Medical Problems: (1) Abdominal pain Status: Acute (2) Acute delirium Status: Acute (3) Back pain Status: Acute (4) Back pain Status: Acute (5) Back pain Status: Acute (6) Central chest pain Status: Acute (7) Change in mental status Status: Acute (8) Chronic back pain Status: Chronic (9) Chronic back pain Status: Acute (10) Chronic low back pain Status: Acute (11) Contusion of multiple sites Status: Acute (12) Dehydration Status: Acute (13) Dehydration Status: Acute (14) Dehydration Status: Acute (15) Dehydration Status: Acute (16) Fall Status: Acute (17) Fall Status: Acute (18) Frequent falls Status: Acute (19) Headache Status: Acute (20) History of rhabdomyolysis Status: Acute (21) Hypoglycemia Status: Acute (22) Hypoxia Status: Acute (23) Left hip pain Status: Acute (24) Left shoulder pain Status: Acute (25) Leg weakness Status: Acute (26) Low back pain Status: Acute (27) Low back pain Status: Acute (28) Lower back pain Status: Acute (29) Multifocal pneumonia Status: Acute (30) Neck pain Status: Acute (31) Rhabdomyolysis Status: Acute (32) Rhabdomyolysis Status: Acute (33) Rib pain on left side Status: Acute (34) Symptoms involving urinary system Status: Acute (35) Tachycardia Status: Acute (36) Weakness Status: Acute Medical Problems: (1) Anemia (2) ANXIETY STATE NOS (3) Asthma (4) BENIGN HYPERTENSION (5) BIPOLAR DISORDER, UNSPECIFIED (6) Chronic back pain (7) Chronic low back pain (8) CHRONIC PEPTIC ULCER NOS (9) Community acquired pneumonia (10) DEPRESSIVE DISORDER NEC (11) DIVERTICULOSIS COLON (W/O MENT OF HEMORRHAGE) (12) ESOPHAGEAL REFLUX (13) IDIOPATHIC TRANSVERSE MYELITIS (14) Low testosterone (15) MIGRAINE UNSPECIFIED W/O INTRACT MGRN W/O STATUS MIGRAINOSUS (16) Neuropathy (17) Tobacco abuse (18) Urinary retention Surgical Problems: (1) S/P decompression of ulnar nerve at elbow Family History Anxiety disorder MOTHER Cancer Diabetes mellitus MOTHER FH: CAD (coronary artery disease) FATHER BROTHER FH: CHF (congestive heart failure) FATHER FH: HTN (hypertension) FH: dementia FATHER FH: diabetes mellitus FH: kidney failure Heart disease Hypertension MOTHER Kidney disease SISTER Social History Smoking Status: Current Every Day Smoker (upwards of 1 ppd) Alcohol Use: none Drug Use: none Marital Status: Housing Status: lives with significant other Occupation Status: disabled Allergies Coded Allergies: Ciprofloxacin (Verified Allergy, Intermediate, RASH, 04/01/17) rash / urticaria proximal to IV site after infusion 04/07/15 Penicillins (Verified Allergy, Intermediate, RASH, 04/01/17) Current Inpatient Medications Current Inpatient Medications Medications (Trade) Dose Ordered Sig/Gurpreet Route Start Time Stop Time Status Last Admin Dose Admin Polyethylene (Miralax Powder Packet) 17 gm DAILY PRN PO 04/01/17 18:30 05/01/17 18:29 04/02/17 10:37 17 GM Ondansetron HCl (Zofran Inj) 4 mg Q6H PRN IV 04/01/17 18:30 05/01/17 18:29 Nicotine (Nicoderm Cq 21MG Patch) 1 patch DAILY TD 04/01/17 18:45 05/01/17 18:44 04/03/17 07:45 1 PATCH Acetaminophen/ Butalbital/ Caffeine (Fioricet Tab) 1 tab BID PRN PO 04/01/17 19:00 05/01/17 18:59 Amphetamine Aspartate/ Amphetam Sulf (Amphetamine Aspartate/Amph Sulf/Dextramphet) 20 mg DAILY PO 04/02/17 08:00 04/16/17 08:59 04/02/17 08:49 20 MG Bupropion HCl (Wellbutrin-Sr Tab) 200 mg BID PO 04/01/17 20:00 05/01/17 20:59 04/03/17 07:44 200 MG Diphenoxylate HCl/ Atropine (Lomotil Tab) 1 tab UD PRN PO 04/01/17 19:00 05/01/17 18:59 Duloxetine HCl (Cymbalta Cap) 60 mg DAILY PO 04/02/17 08:00 05/02/17 08:59 04/03/17 07:45 60 MG Gabapentin (Neurontin Tab) 800 mg QID PO 04/01/17 20:00 05/01/17 20:59 04/03/17 16:13 800 MG Meloxicam (Mobic Tab) 7.5 mg BIDM PO 04/01/17 20:00 05/01/17 19:59 04/03/17 16:12 7.5 MG Methocarbamol (Robaxin Tab) 500 mg TID PO 04/01/17 20:00 05/01/17 20:59 04/03/17 12:16 500 MG Ondansetron HCl (Zofran Tab) 4 mg Q8 PRN PO 04/01/17 19:00 05/01/17 18:59 Pantoprazole Sodium (Protonix Tab) 40 mg BID PO 04/01/17 20:00 05/01/17 20:59 04/03/17 07:44 40 MG Tolterodine Tartrate (Detrol LA Cap) 2 mg BID PO 04/01/17 20:00 05/01/17 20:59 04/03/17 07:45 2 MG Buspirone HCl (BusPAR TAB) 30 mg TID PO 04/01/17 20:00 05/01/17 20:59 04/03/17 12:16 30 MG Mirtazapine (Remeron Tab) 15 mg HS PO 04/01/17 21:00 05/01/17 20:59 04/02/17 21:14 15 MG Rizatriptan Benzoate (Rizatriptan Benzoate Odt) 10 mg UD PRN PO 04/01/17 19:00 05/01/17 18:59 Oxycodone HCl (Roxicodone Immediate Rel Tab) 20 mg QID PRN PO 04/01/17 19:00 04/15/17 18:59 04/03/17 16:11 20 MG Sodium Chloride ([place] Nasal Vader) 1 sprays PRN PRN NA 04/01/17 21:45 05/01/17 21:44 04/02/17 00:50 1 SPRAYS Senna (Senokot Tab) 8.6 mg QAM PO 04/02/17 13:00 05/02/17 12:59 04/03/17 07:44 8.6 MG Docusate Sodium (coLACE CAP) 100 mg BID PO 04/02/17 20:00 05/02/17 19:59 04/03/17 07:45 100 MG Hydroxyzine HCl (Vistaril Tab) 25 mg Q6H PRN PO 04/03/17 02:00 05/01/17 18:59 04/03/17 18:12 25 MG Benzonatate (Tessalon Perles Cap) 100 mg TID PRN PO 04/02/17 20:15 05/02/17 20:14 Guaifenesin (Mucinex Contr Rel Tab) 600 mg Q12 PO 04/02/17 21:00 05/02/17 20:59 04/03/17 07:45 600 MG Ipratropium [place] (Atrovent 0.02% 0.5MG/2.5ML Neb) 0.5 mg Q6R INH 04/02/17 21:00 05/02/17 20:59 04/03/17 14:22 0.5 MG Levalbuterol (Xopenex 1.25MG/ 0.5ML Neb) 1.25 mg Q6R INH 04/02/17 21:00 05/02/17 20:59 04/03/17 14:22 1.25 MG Acetaminophen (Tylenol Tab) 650 mg Q4H PRN PO 04/02/17 21:15 05/02/17 21:14 Imipenem/ Cilastatin Sodium (Consult) 1 ea UD PRN N/A 04/02/17 22:00 05/02/17 21:59 Vancomycin HCl (Consult) 1 ea UD PRN N/A 04/02/17 22:00 05/02/17 21:59 Imipenem/ Cilastatin Sodium 500 mg/Dextrose 120 ml @ 100 mls/hr Q6H IV 04/03/17 04:00 04/09/17 21:59 04/03/17 16:13 100 MLS/HR Prednisone (PredniSONE TAB) 40 mg DAILY PO 04/03/17 09:00 04/08/17 08:59 04/03/17 07:45 40 MG Vancomycin HCl 1250 mg/Sodium Chloride 275 ml @ 125 mls/hr Q12H IV 04/03/17 12:00 04/10/17 11:59 04/03/17 12:21 125 MLS/HR Azithromycin 500 mg/Dextrose 255 ml @ 125 mls/hr Q24H IV 04/03/17 18:00 04/10/17 17:59 04/03/17 16:53 125 MLS/HR Lorazepam (Ativan Inj) 0.5 mg 1900 ONCE IV 04/03/17 19:00 04/03/17 19:01 Review of Systems Constitutional: + fever, + weakness Eyes: No problem reported ENT: No problem reported Respiratory: + cough, + sputum, + shortness of breath Cardiovascular: No problem reported Abdomen: No problem reported Musculoskeletal: + joint pain, + muscle pain, + problem reported Genitourinary - Male: + problem reported ( See HPI) Neurologic: + problem reported ( see H) Psychiatric: No problem reported Endocrine: No problem reported Hematologic / Lymphatic: No problem reported Integumentary: No problem reported Allergic / Immunologic: No problem reported Physical Exam Date Time Temp Pulse Resp B/P (MAP) Pulse Ox O2 Delivery O2 Flow Rate FiO2 04/03/17 16:00 Oxymask 6.0 04/03/17 15:22 36.4 103 22 144/81 (102) 91 Nasal Cannula 6.0 04/03/17 14:22 97 18 97 Mask 13.0 04/03/17 12:04 37.0 94 20 135/84 (101) 90 Oxymask 9.0 04/03/17 12:00 Oxymask 6.0 04/03/17 08:00 Oxymask 6.0 04/03/17 07:47 36.8 98 24 134/81 (98) 98 Non-Rebreather 15.0 04/03/17 07:22 97 22 98 Non-Rebreather 15.0 04/03/17 04:00 Non-Rebreather 15.0 04/03/17 03:59 37.8 50 20 119/83 (95) 94 Non-Rebreather 04/03/17 01:48 102 24 93 Non-Rebreather 15.0 04/03/17 00:00 91 Non-Rebreather 15.0 04/02/17 22:24 37.3 106 25 159/84 (109) 76 Nasal Cannula 3.0 04/02/17 22:23 36.9 105 16 93 3.5 04/02/17 21:40 105 16 93 Nasal Cannula 3.5 General Appearance: WD/WN, + moderate distress Head: normocephalic, atraumatic Eyes: normal inspection, EOMI ENT: normal ENT inspection, pharynx normal Neck: supple, no adenopathy, thyroid normal Respiratory/Chest: chest non-tender, + respiratory distress, + accessory muscle use, + rhonchi Cardiovascular: regular rate, rhythm, no gallop, no murmur Abdomen/GI: normal bowel sounds, non tender, soft, no organomegaly Back: normal inspection, no CVA tenderness Extremities/Musculoskelatal: normal inspection, no calf tenderness, non-tender Neurologic/Psych: alert, oriented x 3 Skin: normal color, no rash ( the) Lymphatic: no adenopathy Laboratory Results a Date/Time Source Procedure Growth Status 04/03/17 00:00 Nasal MRSA DNA Surveillance Screen - Final Specimen Negative for MRSA by DNA Probe Complete Last 24 Hours Test 04/02/17 20:03 04/02/17 20:08 04/02/17 20:20 04/03/17 05:55 White Blood Count 14.53 K/uL 15.01 K/uL Red Blood Count 3.55 M/uL 3.53 M/uL Hemoglobin 10.2 g/dL 9.8 g/dL Hematocrit 30.1 % 29.8 % Mean Corpuscular Volume 84.8 fL 84.4 fL Mean Corpuscular Hemoglobin 28.7 pg 27.8 pg Mean Corpuscular Hemoglobin Concent 33.9 g/dl 32.9 g/dl RDW Standard Deviation 49.8 fL 50.7 fL RDW Coefficient of Variation 16.1 % 16.4 % Platelet Count 247 K/uL 272 K/uL Mean Platelet Volume 9.8 fL 9.7 fL Troponin I < 0.015 ng/ml Arterial Blood pH 7.46 Arterial Blood Partial Pressure CO2 34 mmHg Arterial Blood Partial Pressure O2 59 mm/Hg Arterial Blood HCO3 24 mmol/L Arterial Blood Oxygen Saturation 89.2 % Arterial Blood Base Excess -0.1 mEq/L Arterial Blood Gas Delivery 3.5L [place] Test POS Sodium Level 135 mmol/L Potassium Level 4.0 mmol/L Chloride Level 103 mmol/L Carbon Dioxide Level 24 mmol/L Anion Gap 8.0 mmol/L Blood Urea Nitrogen 8 mg/dl Creatinine 0.68 mg/dl Est Creatinine Clear Calc Drug Dose 122.7 ml/min Estimated GFR () 124.6 Estimated GFR (Non- 107.5 BUN/Creatinine Ratio 12.2 Random Glucose 141 mg/dl Calcium Level 8.0 mg/dl Phosphorus Level 3.1 mg/dl Magnesium Level 2.3 mg/dl Total Creatine Kinase 707 U/L Pro-B-Type Natriuretic Peptide 2831 pg/ml Thyroid Stimulating Hormone (TSH) 0.303 uIu/ml Test 04/03/17 13:34 04/03/17 13:44 Erythrocyte Sedimentation Rate > 90 mm/hr Rheumatoid Factor < 10.0 U/mL Cyclic Citrullinated Peptide IgG Ab < 0.40 U/mL Patient Name: ROBYN YODER Unit Number: [id number] Dictated: 04/03/17830 Transcribed: 04/03/17830 [facility] Printed Date/Time: [~ rep prt dt]/[~ rep prt tm] [~ rep ct labl] - [~ rep ct ivnm] [facility] Radiology Department [place], [place] [id number] Dictated: 04/03/17830 Transcribed: 04/03/17830 [facility] Printed Date/Time: [~ rep prt dt]/[~ rep prt tm] [~ rep ct labl] - [~ rep ct ivnm] [~ rep ct add3]] (CHEST FOR PE) ANGIO WITH CT DOSE: 328.50 mGy.cm HISTORY: 57 years-old Male presents with acute chest pain and hemoptysis. Fever and cough. Follow-up pneumonia. TECHNIQUE: Multiple CTA images of the chest were obtained after the intravenous administration of 93 ml Optiray 320. Coronal and sagittal MIPS were obtained from the axial data set and were submitted for review. A dose lowering technique was utilized adhering to the principles of ALARA. COMPARISON: Chest radiograph 04/02/2017, CTA chest 11/22/2016. FINDINGS: CTA: There is adequate opacification of the pulmonary arteries to the level of the subsegmental branches without convincing evidence of acute pulmonary embolism. No aortic dissection or aneurysm.Heart size is normal. Evaluation of the pulmonary arterial subsegmental branches is mildly limited secondary to respiratory motion. CT CHEST: No dominant thyroid nodule identified. Mild subcarinal, AP window and right hilar adenopathy is noted, likely reactive. Nodes measure up to approximately 1.1 cm in short axis. Small bilateral pleural effusions are present. There is no pneumothorax. Multilobar distribution of bronchial wall thickening is present in conjunction with patchy multifocal multilobar groundglass and consolidative opacities with interlobular septal thickening. Confluent airspace opacities are seen most prominently within the lower lobes. These findings appear stable from comparison chest radiograph. Imaged upper abdominal structures demonstrate no acute abnormality. Bones appear intact. IMPRESSION: 1. No acute pathology or evidence of pulmonary thromboembolic disease. Evaluation of the subsegmental branches however is mildly limited secondary to respiratory motion. 2. Small bilateral pleural effusions with multifocal multilobar distribution of groundglass and consolidative opacities with interlobular septal thickening suggests multifocal pneumonia with recent history of cough and pneumonia. Pulmonary edema however may have a similar appearance. These findings appear stable from comparison chest radiograph. 3. Mild mediastinal and hilar adenopathy, likely reactive. The above report was generated using voice recognition software. It may contain grammatical, syntax or spelling errors. Electronically signed by: Alfie Petty M.D. 04/03/2017 8:43 AM Dictated Date/Time: 04/03/2017 8:31 AM The status of this report is Signed. Draft = Not yet reviewed or approved by Radiologist. Signed = Reviewed and approved by Radiologist. <AttendingPhy>Tulio Noyola DO</AttendingPhy> <FamilyPhy>Darren Flores M.D. </FamilyPhy> <PrimaryPhy>Darren Flores M.D.</PrimaryPhy> <UnitNumber>[id number]< /UnitNumber> <VisitNumber>[id number]</VisitNumber> <PatientName>ROBYN YODER</PatientName> <DateOfBirth>1960</DateOfBirth> <Location>C.[facility]</Location> <ServiceDate>04/01/17</ServiceDate> <MNE>ESINDI</MNE> <OrderingPhy>Bright Sánchez M.D.</OrderingPhy> <OrderingPhyMNE>f rep ord dr calvin</OrderingPhyMNE> < DictatingPhyMNE>f rep dict dr calvin</DictatingPhyMNE> <CCListMNE>f rep ct mne</ CCListMNE> <AdmittingPhyMNE>f pt admit dr calvin</AdmittingPhyMNE> <AttendingPhyMNE >f pt attend dr calvin</AttendingPhyMNE> <ConsultingPhyMNE>f pt consult dr calvin</ConsultingPhyMNE> <FamilyPhyMNE>f pt fam dr calvin</FamilyPhyMNE> <OtherPhyMNE>f pt other dr calvin</OtherPhyMNE> < PrimaryPhyMNE>f pt prim care dr calvin</PrimaryPhyMNE> <ReferringPhyMNE>f pt referring dr calvin</ReferringPhyMNE> Assessment & Plan 57-year-old male with history of elevations of CPK in the past, hospitalization for pneumonia in November, now presents with relatively acute onset of respiratory distress with chest x-ray showing bilateral pulmonary infiltrates. I agree with pulmonary that this could be secondary to noninfectious process, but pending further culture results and studies, would continue patient on broad-spectrum antibiotic therapy with vancomycin and imipenem, and I have added azithromycin for possibility of atypical process, especially legionnaires disease given elevations of CPK level. Agree that bronchoscopy may be needed for definitive diagnosis. HIV studies are pending. Will follow.
[2017-04-03] MEDS: MIRTAZAPINE TAB 15 MG TAB PO SCH (21:12)
[2017-04-03] MEDS ORDERED: LORAZEPAM 2 MG/ML 1 ML VIAL ONE (22:30)
[2017-04-04] VITALS (14 sets, daily range): BP systolic 122–138; BP diastolic 72–83; PULSE 83–108; TEMP 36.5–37.9; O2SAT 92–100
[2017-04-04] MEDS: LEVALBUTEROL 1.25MG/0.5ML NEB INH SCH ×4 (01:46→19:36)
[2017-04-04] MEDS: IPRATROPIUM BROMIDE NEB SOLN 0.02% 2.5 ML VIAL INH SCH ×4 (01:46→19:36)
[2017-04-04] MEDS: hydrOXYzine HCL 25 MG TAB PO PRN ×2 (03:21→22:30)
[2017-04-04] MEDS: IMIPENEM-CILASTATIN 500 MG in DEXTROSE 5% 100ML 100 ML IV SCH ×4 (03:22→22:13)
[2017-04-04] MEDS ORDERED: LEVALBUTEROL/IPRATROPIUM NEB INH STA (04:42)
[2017-04-04] MEDS ORDERED: METHYLPREDNISOLONE IV 40 MG in SYRINGE 0 ML IV STA (04:49)
[2017-04-04] MEDS ORDERED: IPRATROPIUM BROMIDE NEB SOLN 0.02% 2.5 ML VIAL INH STA (04:50)
[2017-04-04] MEDS ORDERED: LEVALBUTEROL 1.25MG/0.5ML NEB INH STA (04:50)
[2017-04-04] MEDS ORDERED: FUROSEMIDE INJ 20 MG in SYRINGE 0 ML IV STA (04:53)
[2017-04-04 05:02] LABS: ARTERIAL BLOOD GAS HCO3 23 mmol/L (19-24); ARTERIAL BLOOD GAS PO2 64 mm/Hg (80-95)
[2017-04-04 05:03] LABS: ALLEN TEST POS (POS)
[2017-04-04 05:11] LABS: BASO % 0.1 %; BASO ABS # 0.01 K/uL (0-0.2); COMPLETE YES; EOS % 0.6 %; HEMATOCRIT 28.1 % (42-52); IG% 0.4 %; LYMPH % 3.4 %; LYMPH ABS # 0.65 K/uL (1.2-3.4); MEAN CELL VOLUME 82.6 fL (80-100); MEAN CORPUSCULAR HEMOGLOBIN 27.9 pg (25-34); MEAN CORPUSCULAR HGB CONC 33.8 g/dl (32-36); MEAN PLATELET VOLUME 9.7 fL (7.4-10.4); NEUT % 90.5 %; PLATELET COUNT 282 K/uL (130-400)
[2017-04-04 05:31] LABS: CREATININE 0.8 mg/dl (0.60-1.40); MAGNESIUM 2.4 mg/dl (1.8-2.4); POTASSIUM 3.2 mmol/L (3.5-5.1)
[2017-04-04] MEDS ORDERED: POTASSIUM CHLORIDE 10 MEQ TABCR PO STA (05:49)
[2017-04-04] MEDS: OXYCODONE HCL IR 5 MG TAB (IMMEDIATE RELEASE) PO PRN ×3 (05:58→20:48)
[2017-04-04] MEDS ORDERED: hydrOXYzine HCL 25 MG TAB PO STA (06:37)
--- NOTE | 2017-04-04 07:37 | DIAGNOSTIC IMAGING REPORT ---
CHEST ONE VIEW PORTABLE CLINICAL HISTORY: Shortness of breath. COMPARISON STUDY: Chest radiograph April 02, [address] April 03, 2017. FINDINGS: There is no pneumothorax. There are trace bilateral pleural effusions. Extensive bilateral airspace opacities persist. Cardiomediastinal silhouette is stable. IMPRESSION: 1. No significant change in extensive bilateral airspace opacities. Extensive pneumonia is favored however pulmonary edema or ARDS could appear similar. 2. Trace bilateral pleural effusions. Electronically signed by: Brian Zepeda M.D. 04/04/2017 7:35 AM Dictated Date/Time: 04/04/2017 7:33 AM
[2017-04-04] MEDS: AMPHETAMINE ASP/SULF/DEXTRAMPH 20 MG TAB PO SCH (08:14)
[2017-04-04] MEDS: GABAPENTIN 800 MG TAB PO SCH ×4 (08:16→20:49)
[2017-04-04] MEDS: METHOCARBAMOL 500 MG TAB PO SCH ×3 (08:16→20:49)
[2017-04-04] MEDS: PANTOprazole SOD 40 MG TAB PO SCH ×2 (08:17→20:51)
[2017-04-04] MEDS: GUAIFENESIN 600 MG TABCR PO SCH ×2 (08:17→20:51)
[2017-04-04] MEDS: BuPROPion SR 100 MG TABCR PO SCH ×2 (08:17→20:51)
[2017-04-04] MEDS: DOCUSATE SODIUM 100 MG CAP PO SCH ×2 (08:18→20:51)
[2017-04-04] MEDS: MELOXICAM 7.5 MG TAB PO SCH ×2 (08:18→16:40)
[2017-04-04] MEDS: NICOTINE 21 MG/24 HR TDSY TD SCH (08:18)
[2017-04-04] MEDS: BusPIRone 15 MG TAB PO SCH ×3 (08:18→20:50)
[2017-04-04] MEDS: TOLTERODINE TARTRATE LA 2 MG CAPCR PO SCH ×2 (08:18→20:49)
[2017-04-04] MEDS: DULOXETINE HCL 60 MG CAP PO SCH (08:18)
[2017-04-04] MEDS: SENNA 8.6 MG TAB PO SCH (08:19)
[2017-04-04] MEDS: VANCOMYCIN INJ 1,250 MG in SODIUM CHLORIDE 0.9% 250ML 250 ML IV SCH ×3 (11:02)
--- NOTE | 2017-04-04 12:46 | PULMONARY PROGRESS NOTE ---
DATE: 04/04/2017 TIME: 12:00 noon. SUBJECTIVE: The patient is sitting on his bed. He is wearing high flow nasal oxygen at 50%. He was difficult to get a history from. He states he thinks he might feel a little better. He indicates that he has no appetite at all. He states he is coughing some green sputum, but he has not been able to put any in a cup. The cup is available at his bedside. The patient has been having intermittent fevers since admission. He relates that he was hospitalized in November of this year with pneumonia. Indeed, he was hospitalized from December 09 through December 12. During that stay, he was found to have fairly significant bilateral lung infiltrates at that time. I did not find evidence of a followup chest x-ray being done. However, he had a CAT scan of the abdomen done 01/09/2017 that showed the lower lung abarca at least to be clear, but multiple rib fractures were seen. OBJECTIVE: GENERAL: The patient did not look in acute distress. VITAL SIGNS: His temperature is 37.9. HEENT: His pupils were somewhat dilated. They did react. He has high flow nasal in place. Mouth exam was unremarkable. NECK: No lymphadenopathy was palpable. HEART: Rate was 108 per minute. The rhythm was regular. The blood pressure is 133/78. LUNGS: Auscultation of his lung abarca revealed diminished breath sounds. Mild rales were heard bilaterally. His oxygen saturation is 100%, currently on the high flow nasal. There was no accessory muscle use. ABDOMEN: Soft and nontender. Bowel sounds were present. EXTREMITIES: Showed no cyanosis, clubbing or edema. LABORATORY AND IMAGING DATA: White count today is elevated at 18.9. Hemoglobin is 9.5. Platelets are 282,000. Blood gas done this morning showed a pH of 7.50 with a pCO2 of 30 and a pO2 of 64. Apparently that was on 57% oxygen. The patient was found to be desaturating during the night. Nursing reported he was taking his oxygen off. He was tried on BiPAP, which he did not tolerate at all. Electrolytes show sodium 136, potassium 3.2, chloride 104, bicarb 25. BUN 11 with a creatinine of 0.8. Blood sugar is 155. Calcium is 8. The ProBNP was elevated at 2831. Rheumatoid factor was negative. Cyclic citrullinated peptide IgG was normal. The ANCA levels are pending. Echo done yesterday reports grade 1 diastolic dysfunction with an abnormal relaxation pattern. ASSESSMENT: 1. Acute hypoxic respiratory failure. 2. Diffuse bilateral lung infiltrates, uncertain etiology. COMMENTS AND RECOMMENDATIONS: The patient did have a markedly abnormal back in November. It appears to have likely cleared after treatment. It seems unusual that he now have such diffuse bilateral infiltrates that is more progressive than before. This makes me less likely to think this is an acute bacterial infection, but more likely noninfectious causes. I agree with Dr. Lim's consult, stating that ideally bronchoscopy should be done. However, he is too hypoxic to do this at the present time. He is currently on azithromycin, vancomycin, imipenem/cilastatin. He is also on prednisone 40 mg daily. Would continue the supportive care for now. If the patient worsens, he would need to go to the ICU.
[2017-04-04] MEDS: AZITHROMYCIN IV 500 MG in DEXTROSE 5% 250ML 250 ML IV SCH (17:47)
--- NOTE | 2017-04-04 18:49 | Progress Note ---
Internal Med Progress Note Date of Service: Apr 04, 2017. Provider Documentation: SUBJECTIVE: remains SOB with ongoing respiratory distress requiring high flow 02 Fo02 80 % OBJECTIVE: Vital Signs-as noted below Exam: General-chronically ill appearing Eyes-sclera non icteric Neck-no JVD Lungs-diminished , + wheeze Heart-regular Abdomen-soft, Extremities-no edema Neuro- no focal deficit Lab data as noted below. ASSESSMENT & PLAN: Sepsis secondary to Pneumonia /acute respiratory failure : CXR suggested worsening multifocal pneumonia/bilateral diffuse infiltrate / edema concern for ARDS pulmonology consulted ,appreciate input will possible need bronchoscopy for further eval at present too hypoxic for the procedure patient presented with WBC and fevers as well as tachycardia CXR suggests LL lobe Pneumonia antibiotics expanded to Vanco and Primaxin for worsening of respiratory status ID following HX of Transverse Myelitis Chronic Narcotic Use continue home narcotic use hold for sedation Depression/Anxiety continue home medications DVT ppx subq heparin FULL CODE DISPOSITION to be determined monitor in tele for ongoing respiratory distress low threshold to transfer to ICU for any change in status , Vital Signs: Date Time Temp Pulse Resp B/P (MAP) Pulse Ox O2 Delivery O2 Flow Rate FiO2 04/05/17 08:01 96 High Flow Oxygen 50.0 50 04/05/17 07:47 37.0 84 28 136/79 (98) 96 High Flow Oxygen 50.0 50 84 04/05/17 06:57 83 15 98 Nasal Cannula 50.0 70 04/05/17 04:07 37.3 91 20 142/80 (100) 96 High Flow Oxygen 91 04/05/17 04:00 95 High Flow Oxygen 50.0 60 04/05/17 02:27 88 18 100 Nasal Cannula 50.0 70 04/05/17 00:04 37.2 83 21 123/76 (92) 97 High Flow Oxygen 83 04/05/17 00:00 95 High Flow Oxygen 50.0 70 04/04/17 20:00 95 High Flow Oxygen 50.0 80 04/04/17 19:50 36.8 101 20 122/72 (89) 92 High Flow Oxygen 04/04/17 19:36 91 18 95 Nasal Cannula 50.0 80 04/04/17 16:11 37.0 83 20 132/78 (96) 99 High Flow Oxygen 04/04/17 16:00 99 Nasal Cannula 50.0 80 04/04/17 14:13 86 20 95 Nasal Cannula 50.0 80 04/04/17 12:41 37.5 86 28 132/82 (99) 100 High Flow Oxygen 50.0 50 86 04/04/17 12:00 High Flow Oxygen 50.0 80 Lab Results: Results Past 24 Hours Test 04/04/17 23:05 Range/Units Vancomycin Level Trough 10.5 SEE COMMENT mcg/ml
[2017-04-04] MEDS: MIRTAZAPINE TAB 15 MG TAB PO SCH (20:48)
[2017-04-04] MEDS ORDERED: VANCOMYCIN TROUGH SCH (23:30)
[2017-04-05] VITALS (21 sets, daily range): BP systolic 111–142; BP diastolic 50–86; PULSE 67–91; TEMP 36.5–37.3; O2SAT 89–100
[2017-04-05] MEDS: VANCOMYCIN INJ 1,250 MG in SODIUM CHLORIDE 0.9% 250ML 250 ML IV SCH (00:04)
[2017-04-05] MEDS: IPRATROPIUM BROMIDE NEB SOLN 0.02% 2.5 ML VIAL INH SCH ×4 (02:08→19:43)
[2017-04-05] MEDS: LEVALBUTEROL 1.25MG/0.5ML NEB INH SCH ×4 (02:08→19:43)
[2017-04-05] MEDS: OXYCODONE HCL IR 5 MG TAB (IMMEDIATE RELEASE) PO PRN ×4 (03:09→23:39)
[2017-04-05] MEDS: IMIPENEM-CILASTATIN 500 MG in DEXTROSE 5% 100ML 100 ML IV SCH ×4 (04:17→22:12)
[2017-04-05] MEDS: DOCUSATE SODIUM 100 MG CAP PO SCH ×2 (07:22→20:24)
[2017-04-05] MEDS: GUAIFENESIN 600 MG TABCR PO SCH ×2 (07:22→20:24)
[2017-04-05] MEDS: MELOXICAM 7.5 MG TAB PO SCH ×2 (07:22→16:33)
[2017-04-05] MEDS: BuPROPion SR 100 MG TABCR PO SCH ×2 (07:22→20:24)
[2017-04-05] MEDS: BusPIRone 15 MG TAB PO SCH ×3 (07:22→20:24)
[2017-04-05] MEDS: DULOXETINE HCL 60 MG CAP PO SCH (07:22)
[2017-04-05] MEDS: TOLTERODINE TARTRATE LA 2 MG CAPCR PO SCH ×2 (07:22→20:24)
[2017-04-05] MEDS: PANTOprazole SOD 40 MG TAB PO SCH ×2 (07:22→20:24)
[2017-04-05] MEDS: METHOCARBAMOL 500 MG TAB PO SCH ×3 (07:22→20:24)
[2017-04-05] MEDS: SENNA 8.6 MG TAB PO SCH (07:22)
[2017-04-05] MEDS: NICOTINE 21 MG/24 HR TDSY TD SCH (07:23)
[2017-04-05] MEDS: hydrOXYzine HCL 25 MG TAB PO PRN (07:25)
[2017-04-05] MEDS: GABAPENTIN 800 MG TAB PO SCH ×4 (07:29→20:22)
--- NOTE | 2017-04-05 08:37 | Pharmacy Progress Note ---
Pharmacy Abx Dose Short Note Date of Service Apr 05, 2017. Assessment & Plan Assessment 57 year old male receiving vancomycin/primaxin/azithromycin for treatment of pneumonia Day # 4 of antimicrobial therapy. Discussed with Dr. Richey on 04/04- MRSA swab negative, continuing vancomycin as patient still requiring high FiO2, mild fever. Plan Vancomycin * Trough level of 10.5 mcg/mL is subtherapeutic * Change to 1000 mg IV every 8 hours * Goal trough level for pna :15-20 mcg/mL * Trough level ordered for 04/06 @ 0730 Primaxin: Continue current dose of 500 mg q6H Pharmacy will continue to follow and will adjust dose/frequency as necessary. Thank you.
[2017-04-05] MEDS: AMPHETAMINE ASP/SULF/DEXTRAMPH 20 MG TAB PO SCH (09:00)
[2017-04-05] MEDS ORDERED: VANCOMYCIN INJ 1,000 MG in SODIUM CHLORIDE 0.9% 250ML 250 ML IV SCH (09:00)
--- NOTE | 2017-04-05 12:39 | DIAGNOSTIC IMAGING REPORT ---
CHEST ONE VIEW PORTABLE HISTORY: 57 years-old Male SOB /pneumonia acute shortness of breath with clinical concern for pneumonia. COMPARISON: Chest radiograph 04/04/2017 TECHNIQUE: Portable upright AP view of the chest FINDINGS: Cardiac silhouette is moderately enlarged, unchanged. There is no pneumothorax. Trace bilateral pleural effusions persist. Extensive bilateral mixed interstitial and alveolar opacities are again seen without significant change from comparison. Bones are grossly intact. IMPRESSION: 1. Stable appearance of the extensive bilateral mixed interstitial and alveolar opacities suggesting multifocal pneumonia or pulmonary edema from cardiogenic or noncardiogenic source. 2. Trace bilateral pleural effusions. The above report was generated using voice recognition software. It may contain grammatical, syntax or spelling errors. Electronically signed by: Alfie Petty M.D. 04/05/2017 12:38 PM Dictated Date/Time: 04/05/2017 12:37 PM
[2017-04-05 12:41] LABS: HEMATOCRIT 29.4 % (42-52); MEAN CELL VOLUME 83.5 fL (80-100); MEAN PLATELET VOLUME 9.7 fL (7.4-10.4); PLATELET COUNT 261 K/uL (130-400); RED BLOOD COUNT 3.52 M/uL (4.7-6.1); WHITE BLOOD COUNT 12.55 K/uL (4.8-10.8)
[2017-04-05 12:45] LABS: MEAN CORPUSCULAR HGB CONC 34.7 g/dl (32-36)
--- NOTE | 2017-04-05 13:46 | PROGRESS NOTE ---
DATE: 04/05/2017 DATE: 04/05/2017 He is seen in room 241, bed 1. PROBLEM LIST: Includes: 1. Acute hypoxic respiratory failure. 2. Diffuse bilateral lung infiltrates of uncertain etiology. SUBJECTIVE: The patient reports that he is feeling much better today. He is actually on nasal cannula at 2 liters and is saturating in the low 90% range. He states that he feels better today. He states that his breathing is easier He states that he did provide a sputum sample, but he is not sure what happened to it. He reports that he still is coughing, a little bit less than before. He states his chest feels heavy. He denies any chest pain. He has not had any palpitations. He has not had any other significant breathing problems. No significant wheezing. No other difficulties. He has been on the oxygen at 2 liters most of the morning. He states his abdomen is doing okay. He has not had any abdominal pain. No nausea or vomiting. He still has some lack of appetite. He was diuresed significantly and has had a negative 2400 mL balance since April 04. No swelling in his legs. He is voiding well. OBJECTIVE: GENERAL: The patient is a 57-year-old male lying in bed in no acute distress, no respiratory distress. No accessory muscle use. He is interactive and cooperative. VITAL SIGNS: Temp 36.9, pulse 78, respiration 20, blood pressure is 137/86, pulse ox when I was in the room was about 92-94% on 2 liters via nasal cannula. HEAD, EYES, EARS, NOSE, AND THROAT: Normocephalic, atraumatic. Pupils equal, round and reactive to light and accommodation. Extraocular movements are intact. [place] moist gingival and buccal mucosa. NECK: Supple. No mass. No adenopathy. No bruits noted. CHEST: Diminished breath sounds bilaterally. No appreciated wheezing at this time. No rale or rhonchi noted. CARDIOVASCULAR: Regular rate and rhythm. No murmurs, gallops or rubs. ABDOMEN: Bowel sounds present. Abdomen soft, nontender. No guarding, rigidity or organomegaly. EXTREMITIES: No erythema or edema. LABORATORY DATA: Shows white count down to 12,000, H&H 10.2 and 29.4, platelet count 261,000. ANCA is pending. Urine legionella is pending. Chest x-ray showed continued interstitial aveolar opacities. Chest x-ray was done on 04/05/2017. IMPRESSION: The patient is a 57-year-old male who presented with acute hypoxic respiratory failure, diffuse bilateral lung infiltrates, unsure of the etiology at this time. Clinically the patient is showing improvement. His oxygen demand has decreased, he is on 2 liters via nasal cannula and saturating in the low 90% range. At this point recommend to continue supportive care. He is showing slow improvement, see if we can get a sputum culture. Continue prednisone 40 mg. Continue current antibiotic and will see how he does over the next 24 hours.
--- NOTE | 2017-04-05 14:13 | Infectious Disease Progress Nt ---
Progress Note Date of Service Apr 05, 2017. Subjective Pt evaluation today including: conversation w/ patient, physical exam, chart review, lab review, review of studies, conversation w/ sap portal consultant, review of inpatient medication list Patient feeling better today with less shortness of breath and cough. No fever. No new complaints. All Other Systems: Reviewed and Negative Medications Current Inpatient Medications Medications (Trade) Dose Ordered Sig/Gurpreet Route Start Time Stop Time Status Last Admin Dose Admin Polyethylene (Miralax Powder Packet) 17 gm DAILY PRN PO 04/01/17 18:30 05/01/17 18:29 04/02/17 10:37 17 GM Ondansetron HCl (Zofran Inj) 4 mg Q6H PRN IV 04/01/17 18:30 05/01/17 18:29 Nicotine (Nicoderm Cq 21MG Patch) 1 patch DAILY TD 04/01/17 18:45 05/01/17 18:44 04/05/17 07:23 1 PATCH Acetaminophen/ Butalbital/ Caffeine (Fioricet Tab) 1 tab BID PRN PO 04/01/17 19:00 05/01/17 18:59 04/04/17 16:39 1 TAB Amphetamine Aspartate/ Amphetam Sulf (Amphetamine Aspartate/Amph Sulf/Dextramphet) 20 mg DAILY PO 04/02/17 08:00 04/16/17 08:59 04/02/17 08:49 20 MG Bupropion HCl (Wellbutrin-Sr Tab) 200 mg BID PO 04/01/17 20:00 05/01/17 20:59 04/05/17 07:22 200 MG Diphenoxylate HCl/ Atropine (Lomotil Tab) 1 tab UD PRN PO 04/01/17 19:00 05/01/17 18:59 Duloxetine HCl (Cymbalta Cap) 60 mg DAILY PO 04/02/17 08:00 05/02/17 08:59 04/05/17 07:22 60 MG Gabapentin (Neurontin Tab) 800 mg QID PO 04/01/17 20:00 05/01/17 20:59 04/05/17 11:49 800 MG Meloxicam (Mobic Tab) 7.5 mg BIDM PO 04/01/17 20:00 05/01/17 19:59 04/05/17 07:22 7.5 MG Methocarbamol (Robaxin Tab) 500 mg TID PO 04/01/17 20:00 05/01/17 20:59 04/05/17 11:49 500 MG Ondansetron HCl (Zofran Tab) 4 mg Q8 PRN PO 04/01/17 19:00 05/01/17 18:59 04/05/17 02:15 4 MG Pantoprazole Sodium (Protonix Tab) 40 mg BID PO 04/01/17 20:00 05/01/17 20:59 04/05/17 07:22 40 MG Tolterodine Tartrate (Detrol LA Cap) 2 mg BID PO 04/01/17 20:00 05/01/17 20:59 04/05/17 07:22 2 MG Buspirone HCl (BusPAR TAB) 30 mg TID PO 04/01/17 20:00 05/01/17 20:59 04/05/17 11:49 30 MG Mirtazapine (Remeron Tab) 15 mg HS PO 04/01/17 21:00 05/01/17 20:59 04/04/17 20:48 15 MG Rizatriptan Benzoate (Rizatriptan Benzoate Odt) 10 mg UD PRN PO 04/01/17 19:00 05/01/17 18:59 Oxycodone HCl (Roxicodone Immediate Rel Tab) 20 mg QID PRN PO 04/01/17 19:00 04/15/17 18:59 04/05/17 10:09 20 MG Sodium Chloride (Combined [place] Nasal [place]) 1 sprays PRN PRN NA 04/01/17 21:45 05/01/17 21:44 04/02/17 00:50 1 SPRAYS Senna (Senokot Tab) 8.6 mg QAM PO 04/02/17 13:00 05/02/17 12:59 04/05/17 07:22 8.6 MG Docusate Sodium (coLACE CAP) 100 mg BID PO 04/02/17 20:00 05/02/17 19:59 04/05/17 07:22 100 MG Hydroxyzine HCl (Vistaril Tab) 25 mg Q6H PRN PO 04/03/17 02:00 05/01/17 18:59 04/05/17 07:25 25 MG Benzonatate (Tessalon Perles Cap) 100 mg TID PRN PO 04/02/17 20:15 05/02/17 20:14 Guaifenesin (Mucinex Contr Rel Tab) 600 mg Q12 PO 04/02/17 21:00 05/02/17 20:59 04/05/17 07:22 600 MG Ipratropium [place] (Atrovent 0.02% 0.5MG/2.5ML Neb) 0.5 mg Q6R INH 04/02/17 21:00 05/02/17 20:59 04/05/17 06:57 0.5 MG Levalbuterol (Xopenex 1.25MG/ 0.5ML Neb) 1.25 mg Q6R INH 04/02/17 21:00 05/02/17 20:59 04/05/17 06:57 1.25 MG Acetaminophen (Tylenol Tab) 650 mg Q4H PRN PO 04/02/17 21:15 05/02/17 21:14 04/04/17 08:21 650 MG Imipenem/ Cilastatin Sodium (Consult) 1 ea UD PRN N/A 04/02/17 22:00 05/02/17 21:59 Imipenem/ Cilastatin Sodium 500 mg/Dextrose 120 ml @ 100 mls/hr Q6H IV 04/03/17 04:00 04/09/17 21:59 04/05/17 11:49 100 MLS/HR Prednisone (PredniSONE TAB) 40 mg DAILY PO 04/05/17 09:00 04/10/17 08:59 04/05/17 07:29 40 MG Azithromycin (Zithromax Tab) 500 mg QAM PO 04/05/17 15:00 04/10/17 08:59 Objective Vital Signs Date Time Temp Pulse Resp B/P (MAP) Pulse Ox O2 Delivery O2 Flow Rate FiO2 04/05/17 12:22 36.9 78 20 137/86 (103) 100 High Flow Oxygen 50.0 50 78 04/05/17 12:16 99 Nasal Cannula 3.0 04/05/17 08:01 96 High Flow Oxygen 50.0 50 04/05/17 07:47 37.0 84 28 136/79 (98) 96 High Flow Oxygen 50.0 50 84 04/05/17 06:57 83 15 98 Nasal Cannula 50.0 70 04/05/17 04:07 37.3 91 20 142/80 (100) 96 High Flow Oxygen 91 04/05/17 04:00 95 High Flow Oxygen 50.0 60 04/05/17 02:27 88 18 100 Nasal Cannula 50.0 70 04/05/17 00:04 37.2 83 21 123/76 (92) 97 High Flow Oxygen 83 04/05/17 00:00 95 High Flow Oxygen 50.0 70 04/04/17 20:00 95 High Flow Oxygen 50.0 80 04/04/17 19:50 36.8 101 20 122/72 (89) 92 High Flow Oxygen 04/04/17 19:36 91 18 95 Nasal Cannula 50.0 80 04/04/17 16:11 37.0 83 20 132/78 (96) 99 High Flow Oxygen 04/04/17 16:00 99 Nasal Cannula 50.0 80 04/04/17 14:13 86 20 95 Nasal Cannula 50.0 80 Physical Exam General Appearance: WD/WN, no apparent distress Eyes: normal inspection, sclerae normal ENT: hearing grossly normal, pharynx normal Neck: supple, no adenopathy, trachea midline Respiratory/Chest: chest non-tender, lungs clear, normal breath sounds, no respiratory distress Cardiovascular: regular rate, rhythm, no gallop, no murmur Abdomen: normal bowel sounds, non tender, soft, no organomegaly Extremities: non-tender, no calf tenderness Neurologic/Psychiatric: alert, oriented x 3 Skin: normal color, no rash Lymphatic: no adenopathy Laboratory Results RUN DATE: 04/03/[address] [facility] LAB PAGE 1 RUN TIME: 708 Specimen Inquiry PATIENT: ROBYN YODER LOC: [facility] U # : [id number] AGE/SX: 57/M ROOM: [facility] REG : 04/01/[address]: Tulio Noyola DO : 1960 BED: 1 DIS : STATUS: ADM IN TLOC: SPEC #: [id number] QUYEN: 04/01/17 STATUS: RES REQ #: [id number] RECD: 04/01/17-[address]: Remigio Solis MD SOURCE: BLOOD ENTR: 04/01/17-[address]: Darren Flores M.D. [facility]: ORDERED: BLOOD CULTURE Procedure Result Verified Site BLD CULT Preliminary 04/03/17 NO GROWTH TO DATE. Last 24 Hours Test 04/04/17 23:05 04/05/17 12:28 Vancomycin Level Trough 10.5 mcg/ml White Blood Count 12.55 K/uL Red Blood Count 3.52 M/uL Hemoglobin 10.2 g/dL Hematocrit 29.4 % Mean Corpuscular Volume 83.5 fL Mean Corpuscular Hemoglobin 29.0 pg Mean Corpuscular Hemoglobin Concent 34.7 g/dl RDW Standard Deviation 51.7 fL RDW Coefficient of Variation 17.0 % Platelet Count 261 K/uL Mean Platelet Volume 9.7 fL Patient Name: ROBYN YODER Unit Number: [id number] Dictated: 04/05/[id number] Transcribed: 04/05/17 123 JRB Printed Date/Time: [~ rep prt dt]/[~ rep prt tm] [~ rep ct labl] - [~ rep ct ivnm] [facility] Radiology [place] [address] Dictated: 04/05/[id number] Transcribed: 04/05/17 1237 JRB Printed Date/Time: [~ rep prt dt]/[~ rep prt tm] [~ rep ct labl] - [~ rep ct ivnm] CHEST ONE VIEW PORTABLE HISTORY: 57 years-old Male SOB /pneumonia acute shortness of breath with clinical concern for pneumonia. COMPARISON: Chest radiograph 04/04/2017 TECHNIQUE: Portable upright AP view of the chest FINDINGS: Cardiac silhouette is moderately enlarged, unchanged. There is no pneumothorax. Trace bilateral pleural effusions persist. Extensive bilateral mixed interstitial and alveolar opacities are again seen without significant change from comparison. Bones are grossly intact. IMPRESSION: 1. Stable appearance of the extensive bilateral mixed interstitial and alveolar opacities suggesting multifocal pneumonia or pulmonary edema from cardiogenic or noncardiogenic source. 2. Trace bilateral pleural effusions. The above report was generated using voice recognition software. It may contain grammatical, syntax or spelling errors. Electronically signed by: Alfie Petty M.D. 04/05/2017 12:38 PM Dictated Date/Time: 04/05/2017 12:37 PM The status of this report is Signed. Draft = Not yet reviewed or approved by Radiologist. Signed = Reviewed and approved by Radiologist. <AttendingPhy>Lucy Richey M.D.</AttendingPhy> <FamilyPhy>Darren Flores M.D. </FamilyPhy> <PrimaryPhy>Darren Flores M.D.</PrimaryPhy> <UnitNumber>[id number]< /UnitNumber> <VisitNumber>[id number]</VisitNumber> <PatientName>BEBA,ROBYN Genevieve</PatientName> <DateOfBirth>1960</DateOfBirth> <Location>C.2T</Location> <ServiceDate>04/01/17</ServiceDate> <MNE>ESINDI</MNE> <OrderingPhy>Lucy Richey MD</OrderingPhy> <OrderingPhyMNE>f rep ord dr calvin</OrderingPhyMNE> < DictatingPhyMNE>f rep dict dr calvin</DictatingPhyMNE> <CCListMNE>f rep ct aminahe</ CCListMNE> <AdmittingPhyMNE>f pt admit dr calvin</AdmittingPhyMNE> <AttendingPhyMNE >f pt attend dr calvin</AttendingPhyMNE> <ConsultingPhyMNE>f pt consult dr calvin</ConsultingPhyMNE> <FamilyPhyMNE>f pt fam dr calvin</FamilyPhyMNE> <OtherPhyMNE>f pt other dr calvin</OtherPhyMNE> < PrimaryPhyMNE>f pt prim care dr calvin</PrimaryPhyMNE> <ReferringPhyMNE>f pt referring dr calvin</ReferringPhyMNE> Assessment and Plan 57-year-old male with history of elevations of CPK in the past, hospitalization for pneumonia in November, now presents with relatively acute onset of respiratory distress with chest x-ray showing bilateral pulmonary infiltrates. Differential diagnosis is diffuse infectious process including atypical infection versus autoimmune/vasculitic process. Studies for legionnaires disease and autoimmune disease are pending. Continue antibiotics for now. Will follow.
[2017-04-05] MEDS: AZITHROMYCIN 250 MG TAB PO SCH (15:15)
--- NOTE | 2017-04-05 16:16 | Progress Note ---
Internal Med Progress Note Date of Service: Apr 05, 2017. Provider Documentation: SUBJECTIVE: breathing much improved today weaned off High flow 02 remain in High 90's Spo2 with 2 L 02 via nasal canula denies of any SOB still having cough with sputum no fever or chills OBJECTIVE: Vital Signs-as noted below Exam: General-chronically ill appearing Eyes-sclera non icteric Neck-no JVD Lungs-diminished , no audible wheeze Heart-regular Abdomen-soft, Extremities-no edema Neuro- no focal deficit Lab data as noted below. ASSESSMENT & PLAN: Sepsis secondary to Pneumonia /acute respiratory failure : CXR suggested worsening multifocal pneumonia/bilateral diffuse infiltrate / edema concern for ARDS clinically improving , transitioned to 2 L 02 via nasal canula today maintaining adequate 02 saturation cont broad spectrum Abx and respiratory support with Neb tx pulmonology consulted ,appreciate input Iv Vancomycin D/jeevan ( MRSA screen negative ; respiratory status improving ) on Primaxin , Zithromax ( changed to oral ) will continue to de escalate Abx as pt continued to improve HX of Transverse Myelitis Chronic Narcotic Use continue home narcotic use hold for sedation Depression/Anxiety continue home medications DVT ppx subq heparin FULL CODE DISPOSITION clinically improved cont tele monitoring PT/OT eval requested plan to discharge home when medically stable Medicine follow up with Dr Padilla will need out pt pulmonology follow up , Vital Signs: Date Time Temp Pulse Resp B/P (MAP) Pulse Ox O2 Delivery O2 Flow Rate FiO2 04/05/17 18:25 98 Nasal Cannula 4.0 04/05/17 17:15 98 Nasal Cannula 4.0 04/05/17 16:17 96 Nasal Cannula 4.0 04/05/17 16:15 89 Nasal Cannula 4.0 04/05/17 15:35 100 Nasal Cannula 4.0 04/05/17 15:32 36.8 74 18 130/81 (97) 100 High Flow Oxygen 04/05/17 14:35 67 18 95 Nasal Cannula 3.5 04/05/17 12:22 36.9 78 20 137/86 (103) 100 High Flow Oxygen 50.0 50 78 04/05/17 12:16 99 Nasal Cannula 3.0 04/05/17 08:01 96 High Flow Oxygen 50.0 50 04/05/17 07:47 37.0 84 28 136/79 (98) 96 High Flow Oxygen 50.0 50 84 04/05/17 06:57 83 15 98 Nasal Cannula 50.0 70 04/05/17 04:07 37.3 91 20 142/80 (100) 96 High Flow Oxygen 91 04/05/17 04:00 95 High Flow Oxygen 50.0 60 04/05/17 02:27 88 18 100 Nasal Cannula 50.0 70 04/05/17 00:04 37.2 83 21 123/76 (92) 97 High Flow Oxygen 83 04/05/17 00:00 95 High Flow Oxygen 50.0 70 04/04/17 20:00 95 High Flow Oxygen 50.0 80 04/04/17 19:50 36.8 101 20 122/72 (89) 92 High Flow Oxygen 04/04/17 19:36 91 18 95 Nasal Cannula 50.0 80 Lab Results: Results Past 24 Hours Test 04/04/17 23:05 04/05/17 12:28 Range/Units Vancomycin Level Trough 10.5 SEE COMMENT mcg/ml White Blood Count 12.55 4.8-10.8 K/uL Red Blood Count 3.52 4.7-6.1 M/uL Hemoglobin 10.2 14.0-18.0 g/dL Hematocrit 29.4 42-52 % Mean Corpuscular Volume 83.5 80-100 fL Mean Corpuscular Hemoglobin 29.0 25-34 pg Mean Corpuscular Hemoglobin Concent 34.7 32-36 g/dl RDW Standard Deviation 51.7 36.4-46.3 fL RDW Coefficient of Variation 17.0 11.5-14.5 % Platelet Count 261 130-400 K/uL Mean Platelet Volume 9.7 7.4-10.4 fL
[2017-04-05] MEDS: MIRTAZAPINE TAB 15 MG TAB PO SCH (20:24)
[2017-04-06] VITALS (9 sets, daily range): BP systolic 138–149; BP diastolic 81–89; PULSE 70–83; TEMP 36.5–37.4; O2SAT 96–100
[2017-04-06] MEDS: LEVALBUTEROL 1.25MG/0.5ML NEB INH SCH ×3 (02:23→14:17)
[2017-04-06] MEDS: IPRATROPIUM BROMIDE NEB SOLN 0.02% 2.5 ML VIAL INH SCH ×3 (02:23→14:17)
[2017-04-06] MEDS: IMIPENEM-CILASTATIN 500 MG in DEXTROSE 5% 100ML 100 ML IV SCH ×3 (04:01→15:57)
[2017-04-06] MEDS: OXYCODONE HCL IR 5 MG TAB (IMMEDIATE RELEASE) PO PRN ×3 (06:27→19:16)
[2017-04-06 07:14] LABS: HEMATOCRIT 28.3 % (42-52); MEAN CELL VOLUME 83.2 fL (80-100); MEAN CORPUSCULAR HEMOGLOBIN 27.1 pg (25-34); MEAN CORPUSCULAR HGB CONC 32.5 g/dl (32-36); MEAN PLATELET VOLUME 10.2 fL (7.4-10.4); PLATELET COUNT 295 K/uL (130-400); WHITE BLOOD COUNT 13.27 K/uL (4.8-10.8)
[2017-04-06] MEDS ORDERED: VANCOMYCIN TROUGH ONE (07:30)
[2017-04-06 07:49] LABS: BUN/CREATININE RATIO 13.7 (10-20); CALCIUM 8.5 mg/dl (8.5-10.1); CREATININE 0.81 mg/dl (0.60-1.40); POTASSIUM 3.3 mmol/L (3.5-5.1)
[2017-04-06] MEDS: AMPHETAMINE ASP/SULF/DEXTRAMPH 20 MG TAB PO SCH (08:44)
[2017-04-06] MEDS: PANTOprazole SOD 40 MG TAB PO SCH ×2 (08:44→20:47)
[2017-04-06] MEDS: DULOXETINE HCL 60 MG CAP PO SCH (08:45)
[2017-04-06] MEDS: AZITHROMYCIN 250 MG TAB PO SCH (08:45)
[2017-04-06] MEDS: DOCUSATE SODIUM 100 MG CAP PO SCH (08:45)
[2017-04-06] MEDS: BuPROPion SR 100 MG TABCR PO SCH ×2 (08:45→20:45)
[2017-04-06] MEDS: GUAIFENESIN 600 MG TABCR PO SCH ×2 (08:45→20:38)
[2017-04-06] MEDS: METHOCARBAMOL 500 MG TAB PO SCH ×3 (08:45→20:46)
[2017-04-06] MEDS: SENNA 8.6 MG TAB PO SCH (08:46)
[2017-04-06] MEDS: TOLTERODINE TARTRATE LA 2 MG CAPCR PO SCH ×2 (08:46→20:45)
[2017-04-06] MEDS: BusPIRone 15 MG TAB PO SCH ×3 (08:46→20:45)
[2017-04-06] MEDS: NICOTINE 21 MG/24 HR TDSY TD SCH (08:47)
[2017-04-06] MEDS: MELOXICAM 7.5 MG TAB PO SCH ×2 (08:47→15:58)
[2017-04-06] MEDS: GABAPENTIN 800 MG TAB PO SCH ×4 (08:47→20:46)
[2017-04-06 12:12] LABS: LEGIONELLA ANTIGEN NOT DETECTED (NOT DETECTED)
--- NOTE | 2017-04-06 12:33 | PROGRESS NOTE ---
DATE: 04/06/2017 DATE: 04/06/2017 PROBLEM LIST: Includes: 1. Acute hypoxic respiratory failure. 2. Diffuse bilateral lung infiltrates of uncertain etiology. SUBJECTIVE: The patient reports again today that he is doing better. Still has oxygen on ranged from 2-4 liters per minute. He states that the cough may be slightly improved as well. He has not noted any wheezing, no chest congestion or tightness. No chest heaviness. He states that he is not bringing up as much mucus when he coughs. No chest pain, no painful respirations. No fever or chills, no sweats. He has not had any GI symptoms. No nausea or vomiting, no abdominal pain, no difficulty with his bowels. No difficulty voiding. He does have catheter in place. He had a negative balance of 1499 yesterday and negative balance of 900 today so far. OBJECTIVE: GENERAL: The patient is a 57-year-old male sitting in bed in no acute distress. Mood and affect are flat. VITAL SIGNS: Temperature 37.4, pulse 76, respirations 20, blood pressure is 143/85, pulse ox 97%. Chart has room air listed but patient was on nasal cannula at 2 liters. HEAD, EYES, EARS, NOSE, AND THROAT: Normocephalic, atraumatic. Pupils equal, round and react to light and accommodation. Extraocular movements are intact. [place] and moist gingival and buccal mucosa. NECK: Supple. There is no mass. No adenopathy, no bruit. CHEST: Diminished breath sounds bilaterally. I do not appreciate any wheeze, rales or rhonchi at this time. CARDIOVASCULAR: Regular rate and rhythm. No murmurs, gallops or rubs. ABDOMEN: Obese, soft, nondistended, no tenderness to palpation. EXTREMITIES: No erythema, no edema. NEUROLOGIC: Cranial nerves II through XII are intact. No focal deficit noted. LABORATORY DATA: Show white count 13,000 and H&H 9.2 and 28.3, platelet count 295,000. No new imaging data. IMPRESSION: This is a 57-year-old male with an acute hypoxic respiratory failure, diffuse bilateral lung infiltrates. Unfortunately we are unsure of the etiology. Infectious disease is seeing him and recommending continued antibiotics. The patient has been on steroids during hospitalization. We did discuss the case with Dr. Lim yesterday. In his previous note he mentioned about the possibility of doing a bronchoscopic evaluation; however, with the patient showing improvement and being on the steroids the testing that he was planning on doing would be altered by the steroids that he was on. So at this point, it does not appear that we will be doing bronchoscopic evaluation as an inpatient. We will need to follow up with the patient as an outpatient and consider down the road. Currently recommend to continue prednisone 40 mg daily. Continue current antibiotic as recommended by infectious disease. Will continue to follow through hospitalization.
[2017-04-06] MEDS: DIPHENOXYLATE/ATROPINE 2.5/0.025MG TAB PO PRN ×2 (13:03→13:04)
[2017-04-06] MEDS ORDERED: POTASSIUM CHLORIDE 10 MEQ TABCR PO STA (18:15)
--- NOTE | 2017-04-06 18:38 | Progress Note ---
Internal Med Progress Note Date of Service: Apr 06, 2017. Provider Documentation: SUBJECTIVE: breathing much better on 2 L 02 via nasal canula Spo2 > 95 % no complain of SOB , has non productive cough OBJECTIVE: Vital Signs-as noted below Exam: General-chronically ill appearing Eyes-sclera non icteric Neck-no JVD Lungs-diminished , no audible wheeze Heart-regular Abdomen-soft, Extremities-no edema Neuro- no focal deficit Lab data as noted below. ASSESSMENT & PLAN: Sepsis secondary to Pneumonia /acute respiratory failure : resolved respiratory status improved markedly on 02 via nasal canula leukocytosis has improved will D/c Primaxin cont oral Zithromax for total 10 days tx pulmonology consulted ,appreciate input will need out pt pulmonology follow up 2 step pulse oximetry prior to discharge home HX of Transverse Myelitis Chronic Narcotic Use continue home narcotic use hold for sedation Depression/Anxiety continue home medications DVT ppx subq heparin FULL CODE DISPOSITION stable to transfer to medical floor Medicine follow up with Dr Padilla will need out pt pulmonology follow up , Vital Signs: Date Time Temp Pulse Resp B/P (MAP) Pulse Ox O2 Delivery O2 Flow Rate FiO2 04/06/17 16:03 36.5 81 16 142/81 (101) 96 Nasal Cannula 4.0 04/06/17 16:00 Nasal Cannula 4.0 04/06/17 14:18 71 14 99 Nasal Cannula 4.0 04/06/17 12:00 Nasal Cannula 4.0 04/06/17 11:54 37.2 71 22 144/86 (105) 97 Nasal Cannula 4.0 04/06/17 08:13 37.4 76 20 143/85 (104) 97 Room Air 04/06/17 08:00 Nasal Cannula 3.0 04/06/17 07:22 70 14 100 Nasal Cannula 4.0 04/06/17 04:00 36.8 76 18 138/81 (100) 98 Nasal Cannula 4.0 04/06/17 04:00 96 Nasal Cannula 4.0 04/06/17 02:23 78 14 98 Nasal Cannula 4.0 04/06/17 00:00 96 Nasal Cannula 4.0 04/05/17 23:27 36.9 77 18 121/50 (73) 96 Nasal Cannula 4.0 04/05/17 20:13 36.5 73 20 111/68 (82) 94 Room Air 9/6/17 20:00 96 Nasal Cannula 4.0 04/05/17 19:44 67 16 96 Nasal Cannula 4.0 Lab Results: Results Past 24 Hours Test 04/06/17 06:56 Range/Units White Blood Count 13.27 4.8-10.8 K/uL Red Blood Count 3.40 4.7-6.1 M/uL Hemoglobin 9.2 14.0-18.0 g/dL Hematocrit 28.3 42-52 % Mean Corpuscular Volume 83.2 80-100 fL Mean Corpuscular Hemoglobin 27.1 25-34 pg Mean Corpuscular Hemoglobin Concent 32.5 32-36 g/dl RDW Standard Deviation 50.7 36.4-46.3 fL RDW Coefficient of Variation 16.9 11.5-14.5 % Platelet Count 295 130-400 K/uL Mean Platelet Volume 10.2 7.4-10.4 fL Sodium Level 136 136-145 mmol/L Potassium Level 3.3 3.5-5.1 mmol/L Chloride Level 103 98-107 mmol/L Carbon Dioxide Level 26 21-32 mmol/L Anion Gap 7.0 3-11 mmol/L Blood Urea Nitrogen 11 7-18 mg/dl Creatinine 0.81 0.60-1.40 mg/dl Est Creatinine Clear Calc Drug Dose 100.5 ml/min Estimated GFR () 116.0 Estimated GFR (Non- 100.1 BUN/Creatinine Ratio 13.7 10-20 Random Glucose 119 70-99 mg/dl Calcium Level 8.5 8.5-10.1 mg/dl
--- NOTE | 2017-04-06 19:40 | Infectious Disease Progress Nt ---
Progress Note Date of Service Apr 06, 2017. Subjective Pt evaluation today including: conversation w/ patient, physical exam, chart review, lab review, review of studies, conversation w/ hearing consultant, review of inpatient medication list Patient continues to improve with less shortness of breath and cough. No fever. Continues to tolerate antibiotics without apparent difficulty. All Other Systems: Reviewed and Negative Medications Current Inpatient Medications Medications (Trade) Dose Ordered Sig/Gurpreet Route Start Time Stop Time Status Last Admin Dose Admin Polyethylene (Miralax Powder Packet) 17 gm DAILY PRN PO 04/01/17 18:30 05/01/17 18:29 04/02/17 10:37 17 GM Ondansetron HCl (Zofran Inj) 4 mg Q6H PRN IV 04/01/17 18:30 05/01/17 18:29 Nicotine (Nicoderm Cq 21MG Patch) 1 patch DAILY TD 04/01/17 18:45 05/01/17 18:44 04/06/17 08:47 1 PATCH Acetaminophen/ Butalbital/ Caffeine (Fioricet Tab) 1 tab BID PRN PO 04/01/17 19:00 05/01/17 18:59 04/04/17 16:39 1 TAB Amphetamine Aspartate/ Amphetam Sulf (Amphetamine Aspartate/Amph Sulf/Dextramphet) 20 mg DAILY PO 04/02/17 08:00 04/16/17 08:59 04/06/17 08:44 20 MG Bupropion HCl (Wellbutrin-Sr Tab) 200 mg BID PO 04/01/17 20:00 05/01/17 20:59 04/06/17 08:45 200 MG Diphenoxylate HCl/ Atropine (Lomotil Tab) 1 tab UD PRN PO 04/01/17 19:00 05/01/17 18:59 04/06/17 13:04 1 TAB Duloxetine HCl (Cymbalta Cap) 60 mg DAILY PO 04/02/17 08:00 05/02/17 08:59 04/06/17 08:45 60 MG Gabapentin (Neurontin Tab) 800 mg QID PO 04/01/17 20:00 05/01/17 20:59 04/06/17 15:58 800 MG Meloxicam (Mobic Tab) 7.5 mg BIDM PO 04/01/17 20:00 05/01/17 19:59 04/06/17 15:58 7.5 MG Methocarbamol (Robaxin Tab) 500 mg TID PO 04/01/17 20:00 05/01/17 20:59 04/06/17 13:04 500 MG Ondansetron HCl (Zofran Tab) 4 mg Q8 PRN PO 04/01/17 19:00 05/01/17 18:59 04/05/17 02:15 4 MG Pantoprazole Sodium (Protonix Tab) 40 mg BID PO 04/01/17 20:00 05/01/17 20:59 04/06/17 08:44 40 MG Tolterodine Tartrate (Detrol LA Cap) 2 mg BID PO 04/01/17 20:00 05/01/17 20:59 04/06/17 08:46 2 MG Buspirone HCl (BusPAR TAB) 30 mg TID PO 04/01/17 20:00 05/01/17 20:59 04/06/17 13:04 30 MG Mirtazapine (Remeron Tab) 15 mg HS PO 04/01/17 21:00 05/01/17 20:59 04/05/17 20:24 15 MG Rizatriptan Benzoate (Rizatriptan Benzoate Odt) 10 mg UD PRN PO 04/01/17 19:00 05/01/17 18:59 Oxycodone HCl (Roxicodone Immediate Rel Tab) 20 mg QID PRN PO 04/01/17 19:00 04/15/17 18:59 04/06/17 19:16 20 MG Sodium Chloride ([place] Nasal [place]) 1 sprays PRN PRN NA 04/01/17 21:45 05/01/17 21:44 04/02/17 00:50 1 SPRAYS Senna (Senokot Tab) 8.6 mg QAM PO 04/02/17 13:00 05/02/17 12:59 04/06/17 08:46 8.6 MG Docusate Sodium (coLACE CAP) 100 mg BID PO 04/02/17 20:00 05/02/17 19:59 04/06/17 08:45 100 MG Hydroxyzine HCl (Vistaril Tab) 25 mg Q6H PRN PO 04/03/17 02:00 05/01/17 18:59 04/05/17 07:25 25 MG Benzonatate (Tessalon Perles Cap) 100 mg TID PRN PO 04/02/17 20:15 05/02/17 20:14 Guaifenesin (Mucinex Contr Rel Tab) 600 mg Q12 PO 04/02/17 21:00 05/02/17 20:59 04/06/17 08:45 600 MG Acetaminophen (Tylenol Tab) 650 mg Q4H PRN PO 04/02/17 21:15 05/02/17 21:14 04/04/17 08:21 650 MG Prednisone (PredniSONE TAB) 40 mg DAILY PO 04/05/17 09:00 04/10/17 08:59 04/06/17 08:44 40 MG Azithromycin (Zithromax Tab) 500 mg QAM PO 04/05/17 15:00 04/10/17 08:59 04/06/17 08:45 500 MG Ipratropium [place] (Atrovent 0.02% 0.5MG/2.5ML Neb) 0.5 mg Q6R PRN INH 04/06/17 21:00 05/02/17 20:59 Levalbuterol (Xopenex 1.25MG/ 0.5ML Neb) 1.25 mg Q6R PRN INH 04/06/17 21:00 05/02/17 20:59 Objective Vital Signs Date Time Temp Pulse Resp B/P (MAP) Pulse Ox O2 Delivery O2 Flow Rate FiO2 04/06/17 16:03 36.5 81 16 142/81 (101) 96 Nasal Cannula 4.0 04/06/17 16:00 Nasal Cannula 4.0 04/06/17 14:18 71 14 99 Nasal Cannula 4.0 04/06/17 12:00 Nasal Cannula 4.0 04/06/17 11:54 37.2 71 22 144/86 (105) 97 Nasal Cannula 4.0 04/06/17 08:13 37.4 76 20 143/85 (104) 97 Room Air 04/06/17 08:00 Nasal Cannula 3.0 04/06/17 07:22 70 14 100 Nasal Cannula 4.0 04/06/17 04:00 36.8 76 18 138/81 (100) 98 Nasal Cannula 4.0 04/06/17 04:00 96 Nasal Cannula 4.0 04/06/17 02:23 78 14 98 Nasal Cannula 4.0 04/06/17 00:00 96 Nasal Cannula 4.0 04/05/17 23:27 36.9 77 18 121/50 (73) 96 Nasal Cannula 4.0 04/05/17 20:13 36.5 73 20 111/68 (82) 94 Room Air 04/05/17 20:00 96 Nasal Cannula 4.0 04/05/17 19:44 67 16 96 Nasal Cannula 4.0 Physical Exam General Appearance: WD/WN, no apparent distress Eyes: normal inspection, sclerae normal ENT: normal ENT inspection, pharynx normal Neck: supple, no adenopathy, trachea midline Respiratory/Chest: chest non-tender, lungs clear, normal breath sounds, no respiratory distress Cardiovascular: regular rate, rhythm, no gallop, no murmur Abdomen: normal bowel sounds, non tender, soft, no organomegaly Extremities: non-tender, no calf tenderness Neurologic/Psychiatric: alert, oriented x 3 Skin: normal color, no rash Lymphatic: no adenopathy Laboratory Results Last 24 Hours Test 04/06/17 06:56 White Blood Count 13.27 K/uL Red Blood Count 3.40 M/uL Hemoglobin 9.2 g/dL Hematocrit 28.3 % Mean Corpuscular Volume 83.2 fL Mean Corpuscular Hemoglobin 27.1 pg Mean Corpuscular Hemoglobin Concent 32.5 g/dl RDW Standard Deviation 50.7 fL RDW Coefficient of Variation 16.9 % Platelet Count 295 K/uL Mean Platelet Volume 10.2 fL Sodium Level 136 mmol/L Potassium Level 3.3 mmol/L Chloride Level 103 mmol/L Carbon Dioxide Level 26 mmol/L Anion Gap 7.0 mmol/L Blood Urea Nitrogen 11 mg/dl Creatinine 0.81 mg/dl Est Creatinine Clear Calc Drug Dose 100.5 ml/min Estimated GFR () 116.0 Estimated GFR (Non- 100.1 BUN/Creatinine Ratio 13.7 Random Glucose 119 mg/dl Calcium Level 8.5 mg/dl Assessment and Plan 57-year-old male with history of elevations of CPK in the past, hospitalization for pneumonia in November, now presents with relatively acute onset of respiratory distress with chest x-ray showing bilateral pulmonary infiltrates. Differential diagnosis is diffuse infectious process including atypical infection versus autoimmune/vasculitic process. Studies for legionnaires disease and autoimmune disease are pending. Patient will be continued on azithromycin pending final culture and serology results.
[2017-04-06] MEDS: MIRTAZAPINE TAB 15 MG TAB PO SCH (20:38)
[2017-04-06] MEDS ORDERED: LEVALBUTEROL 1.25MG/0.5ML NEB INH PRN (21:00)
[2017-04-06] MEDS ORDERED: IPRATROPIUM BROMIDE NEB SOLN 0.02% 2.5 ML VIAL INH PRN (21:00)
[2017-04-07 00:18] VITALS: BP 117/71; PULSE 76; TEMP 36.9; O2SAT 95
[2017-04-07] MEDS: OXYCODONE HCL IR 5 MG TAB (IMMEDIATE RELEASE) PO PRN (04:42)
[2017-04-07 07:31] VITALS: BP 112/66; PULSE 80; TEMP 36.8; O2SAT 98
[2017-04-07 07:35] LABS: COD UR NEGATIVE NG/ML (CUTOFF=50); HYDROCOD UR NEGATIVE NG/ML (CUTOFF=50); HYDROMOR UR NEGATIVE NG/ML (CUTOFF=50); HYDROXYETHYLFLURAZEPAM CONF NEGATIVE NG/ML (CUTOFF=50); HYDROXYMIDAZOLAM NEGATIVE NG/ML (CUTOFF=50); HYDROXYTRIAZOLAM CONF NEGATIVE NG/ML (CUTOFF=50); MORPHINE UR NEGATIVE NG/ML (CUTOFF=50); NORHYDROCODONE CONF UR NEGATIVE NG/ML (CUTOFF=50); OXYMORPH UR 2350 NG/ML (CUTOFF=50); TEMAZEPAM CONF NEGATIVE NG/ML (CUTOFF=50)
[2017-04-07 07:37] LABS: HEMATOCRIT 30.1 % (42-52); MEAN CELL VOLUME 84.1 fL (80-100); MEAN CORPUSCULAR HEMOGLOBIN 27.7 pg (25-34); MEAN CORPUSCULAR HGB CONC 32.9 g/dl (32-36); MEAN PLATELET VOLUME 9.5 fL (7.4-10.4); PLATELET COUNT 262 K/uL (130-400); RED BLOOD COUNT 3.58 M/uL (4.7-6.1); WHITE BLOOD COUNT 13.19 K/uL (4.8-10.8)
[2017-04-07] MEDS: MELOXICAM 7.5 MG TAB PO SCH ×2 (07:44→17:10)
[2017-04-07 08:12] LABS: CREATININE 0.84 mg/dl (0.60-1.40)
[2017-04-07] MEDS: GUAIFENESIN 600 MG TABCR PO SCH (09:21)
[2017-04-07] MEDS: AZITHROMYCIN 250 MG TAB PO SCH (09:21)
[2017-04-07] MEDS: BuPROPion SR 100 MG TABCR PO SCH (09:22)
[2017-04-07] MEDS: DULOXETINE HCL 60 MG CAP PO SCH (09:22)
[2017-04-07] MEDS: DOCUSATE SODIUM 100 MG CAP PO SCH (09:22)
[2017-04-07] MEDS: SENNA 8.6 MG TAB PO SCH (09:22)
[2017-04-07] MEDS: TOLTERODINE TARTRATE LA 2 MG CAPCR PO SCH (09:23)
[2017-04-07] MEDS: PANTOprazole SOD 40 MG TAB PO SCH (09:23)
[2017-04-07] MEDS: METHOCARBAMOL 500 MG TAB PO SCH ×2 (09:23→14:10)
[2017-04-07] MEDS: NICOTINE 21 MG/24 HR TDSY TD SCH (09:24)
[2017-04-07] MEDS: BusPIRone 15 MG TAB PO SCH ×2 (09:24→14:10)
[2017-04-07] MEDS: AMPHETAMINE ASP/SULF/DEXTRAMPH 20 MG TAB PO SCH ×2 (09:51→09:52)
[2017-04-07] MEDS: GABAPENTIN 800 MG TAB PO SCH ×2 (12:59→17:09)
--- NOTE | 2017-04-07 13:41 | PROGRESS NOTE ---
DATE: 04/07/2017 DATE: 04/07/2017 PROBLEM LIST: Includes: 1. Acute hypoxic respiratory failure. 2. Diffuse bilateral lung infiltrates of uncertain etiology. SUBJECTIVE: The patient reports that he is doing well today. He was actually off oxygen for a while this morning. He was up to the bathroom and did not really have any difficulty. States that he put the oxygen back on more for comfort than anything else. He states that he feels more comfortable and can rest a little bit easier when he has the oxygen on. He states that he is not really having much cough at this time. He is not having any mucus production when he does cough. No wheezing, no chest heaviness or tightness. Denies any fever or chills, no sweats. No GI symptoms. No difficulty with his bowels. He reports that he would like to go home today. He states he feels well and feels that he will be able to rest a little bit easier at home than he does here in the hospital. He denies any other concerns. OBJECTIVE: GENERAL: The patient is a 57-year-old male, sitting in bed in no acute distress. He is alert and oriented x3. Mood and affect are actually a little bit brighter today. He is a little bit more conversant today. Did not exhibit any signs of respiratory difficulty with conversation. VITAL SIGNS: Temp 36.8, pulse 80, respirations 20, blood pressure 112/66, pulse ox 98% on 3 liters. HEAD, EYES, EARS, NOSE, AND THROAT: Normocephalic, atraumatic. Pupils equal, round, reactive to light and accommodation. Extraocular movements are intact. [place] moist gingival and buccal mucosa. NECK: Supple. There is no mass. No adenopathy. No bruit. CHEST: Diminished. There is no wheeze, rale or rhonchi noted. CARDIOVASCULAR: Regular rate and rhythm. No murmurs, gallops or rubs. ABDOMEN: Slightly obese. Bowel sounds present. Abdomen soft, nontender. No guarding, rigidity or organomegaly. EXTREMITIES: No erythema or edema. NEUROLOGIC: Cranial nerves II through XII are intact. No focal deficit noted. LABORATORY DATA: Shows a white count down to 13,000, H&H 9.9 and 30.1, platelet count 262,000. Creatinine 0.84, legionella antigens are negative. ANCA is still pending. No new imaging data. IMPRESSION: The patient is a 57-year-old male who presented with acute hypoxic respiratory failure as well as some diffuse bilateral lung infiltrates. At this time still unsure of the etiology, although patient is showing clinical and radiological evidence of improvement. His oxygen demand is diminished and he is actually having periods of time where he is off oxygen. At this time. I would recommend 2-step to be done to see if he qualifies for oxygen at home. If he does not qualify on a 2-step he may benefit from a nocturnal oximeter at home. At this point in regards to patient's request to be discharged today from a pulmonary standpoint I do not see that that would be a problem. The patient is doing well. His lung sounds are improved. I did discuss with him the need for close pulmonary followup and that he would need an appointment in 1-2 weeks. He was agreeable to this. Would recommend that he stay on 40 mg of prednisone until he comes into the office and then we can discuss tapering, otherwise everything the same at this point. Continue antibiotics as per infectious disease. We will continue to follow patient though hospitalization.
[2017-04-07 14:08] VITALS: PULSE 75; O2SAT 96
[2017-04-07] MEDS ORDERED: ZTHM250 PO (15:31)
[2017-04-07] MEDS ORDERED: PRED20TA2 PO ×2 (15:31→15:40)
--- NOTE | 2017-04-07 15:32 | Discharge Instructions ---
Discharge Instructions Date of Service Apr 07, 2017. Admission Reason for Admission: Community Acquired Pneumonia Discharge Discharge Diagnosis / Problem: SEPSIS /PNEUMONIA Discharge Goals Goal(s): Decrease discomfort, Improve disease control, Diagnostic testing, Therapeutic intervention Activity Recommendations Activity Limitations: resume your previous activity Driving or Machine Use: no limitations . Instructions / Follow-Up Instructions / Follow-Up HOSPITAL FOLLOW UP :04/11/2017 10:30 AM Katelynn Cain DO [facility] NEED CHEST XRAY TO ASSESS BILATERAL INFILTRATION IN 1 WEEK PULMONOLOGY FOLLOW UP WITH DANIELLA TREVINO PA-C IN 1-2 WEEKS Current Hospital Diet Patient's current hospital diet: Regular Diet Discharge Diet Recommended Diet: Regular Diet Pending Studies Studies pending at discharge: no Medical Emergencies . Who to Call and When: Medical Emergencies: If at any time you feel your situation is an emergency, please call 911 immediately. . Non-Emergent Contact Non-Emergency issues call your: Primary Care Provider . . "Provider Documentation" section prepared by Lucy Richey. . VTE Core Measure Inpt VTE Proph given/why not?: Unfractionated heparin SQ
--- NOTE | 2017-04-07 16:19 | Progress Note ---
Internal Med Progress Note Date of Service: Apr 07, 2017. Provider Documentation: SUBJECTIVE: no complain of SOB or chest discomfort spo2 96 % in RA having hypoxia /desaturation on walking 2 step exercise shows pt requiring 3 L 02 via nasal canula on ambulation , no 02 requirement at rest evaluated by pulmonology this AM stable to be discharged home OBJECTIVE: Vital Signs-as noted below Exam: General-chronically ill appearing Eyes-sclera non icteric Neck-no JVD Lungs-diminished , no audible wheeze Heart-regular Abdomen-soft, Extremities-no edema Neuro- no focal deficit Lab data as noted below. ASSESSMENT & PLAN: Sepsis secondary to Pneumonia /acute respiratory failure : resolved ; no fever or chills , vital remains stable respiratory status improved markedly no 02 requirement at rest cont oral Zithromax for total 10 days tx pulmonology consulted ,appreciate input will need out pt pulmonology follow up in 1-2 weeks cont Prednisone 40 mg daily till seen by Pulmonology 2 step pulse oximetry done -pt requires 3 L 02 on ambulation script given to CM , arrangements made for home 02 HX of Transverse Myelitis Chronic Narcotic Use continue home narcotic use Depression/Anxiety continue home medications DVT ppx subq heparin FULL CODE DISPOSITION stable to be discharged pt home today Vital Signs: Date Time Temp Pulse Resp B/P (MAP) Pulse Ox O2 Delivery O2 Flow Rate FiO2 04/07/17 14:08 75 96 Room Air 04/07/17 12:24 Nasal Cannula 3.0 04/07/17 07:31 36.8 80 20 112/66 (81) 98 4.0 04/07/17 00:18 36.9 76 18 117/71 (86) 95 Nasal Cannula 4.0 04/07/17 00:10 Nasal Cannula 4.0 04/06/17 20:52 36.5 83 20 149/89 (109) 96 Nasal Cannula 4.0 Lab Results: Results Past 24 Hours Test 04/07/17 07:13 Range/Units White Blood Count 13.19 4.8-10.8 K/uL Red Blood Count 3.58 4.7-6.1 M/uL Hemoglobin 9.9 14.0-18.0 g/dL Hematocrit 30.1 42-52 % Mean Corpuscular Volume 84.1 80-100 fL Mean Corpuscular Hemoglobin 27.7 25-34 pg Mean Corpuscular Hemoglobin Concent 32.9 32-36 g/dl RDW Standard Deviation 52.8 36.4-46.3 fL RDW Coefficient of Variation 17.2 11.5-14.5 % Platelet Count 262 130-400 K/uL Mean Platelet Volume 9.5 7.4-10.4 fL Creatinine 0.84 0.60-1.40 mg/dl Est Creatinine Clear Calc Drug Dose 96.9 ml/min Estimated GFR () 114.2 Estimated GFR (Non- 98.6
--- NOTE | 2017-04-07 16:21 | Discharge Summary ---
Discharge Summary Date of Service Apr 07, 2017. Discharge Summary Admission Date: Apr 01, 2017 at 18:27 Discharge Date: Apr 07, 2017 Discharge Disposition: Home Principal Diagnosis: SEPSIS /PNEUMONIA Procedures: ECHO : Left Ventricle The left ventricle is normal in size. There is borderline concentric left ventricular hypertrophy. Left ventricular systolic function is normal. Ejection Fraction = 60-65%. The left ventricular wall motion is normal. CTA OF CHEST: IMPRESSION: 1. No acute pathology or evidence of pulmonary thromboembolic disease. Evaluation of the subsegmental branches however is mildly limited secondary to respiratory motion. 2. Small bilateral pleural effusions with multifocal multilobar distribution of groundglass and consolidative opacities with interlobular septal thickening suggests multifocal pneumonia with recent history of cough and pneumonia. Pulmonary edema however may have a similar appearance. These findings appear stable from comparison chest radiograph. 3. Mild mediastinal and hilar adenopathy, likely reactive. Consultations: PULMONOLOGY Medication Reconciliation New Medications: Prednisone (Prednisone Tab) 20 Mg Tab 40 MG PO DAILY for 14 Days, #30 TAB 2 Refills Azithromycin (Azithromycin) 250 Mg Tab 500 MG PO QAM for 4 Days, #4 TAB Continued Medications: Acetamin/Butalbital/Caffeine (Fioricet) 1 Ea Tab 1-2 TABS PO BID PRN for Headache Amphetamine-Dextroamphetamine 20MG (Adderall 20MG) 1 Tab Tab 20 MG PO DAILY, TAB Aspirin (Aspirin Ec) 81 Mg Tab 81 MG PO DAILY Bupropion (Wellbutrin Sr) 200 Mg Ertab 200 MG PO BID, TAB Buspirone Hcl (Buspirone Hcl) 30 Mg Tab 30 MG PO TID Diphenoxylate/Atropine (Lomotil) Tab 1 TAB PO UD PRN for Diarrhea, TAB TAKE 2 TABLETS AT ONSET OF DIARRHEA THEN 1 TABLET AFTER EACH EPISODE. MAXIMUM 8 TABLETS PER DAY. Duloxetine HCl (Duloxetine HCl) 60 Mg Cap 60 MG PO DAILY Gabapentin (Gabapentin) 800 Mg Tab 800 MG PO QID Hydroxyzine HCl (Hydroxyzine Pamoate) 25 Mg Tab 25 MG PO Q8 PRN for Anxiety, #90 Meloxicam (Mobic) 7.5 Mg Tab 7.5 MG PO BID Methocarbamol (Robaxin) 500 Mg Tab 500 MG PO TID, TAB Mirtazapine Soltab (Remeron Soltab) 15 Mg Soltab 15 MG PO HS, TAB Ondansetron Hcl (Zofran) 4 Mg Tab 4 MG PO Q8 PRN for Nausea, TAB Oxycodone Hcl (Oxycodone Hcl) 20 Mg Tab 20 MG PO QID PRN for Pain Pantoprazole (Pantoprazole Sodium) 40 Mg Tab 40 MG PO BID Rizatriptan Benzoate (Rizatriptan Benzoate) 10 Mg Tab 10 MG PO UD PRN for Headache TAKE 1 TABLET AT ONSET OF HEADACHE MAY REPEAT EVERY 2 HOURS IF NEEDED, MAXIMUM 2 TABLETS IN 24 HOURS Tadalafil (Cialis) 5 Mg Tab 5 MG PO UD PRN for erectile dysfunction, TAB Testosterone Cypionate (Testosterone Cypionate) 200 Mg/Ml Inj 100 MG INJ WK Tolterodine Tartrate (Detrol LA) 2 Mg Capcr 2 MG PO BID, CAP Discontinued Medications: Trimethoprim/Sulfamethoxazole (Bactrim 400MG/80MG) Tab Unknown Dose PO Q12H, TAB Referrals At Discharge Follow up Referrals: Web Operations Specialist Referral - Within 1-2 Weeks with Daniella Lewis PA-C Admission Information HPI (per Admitting provider): Patient is a 57 yo male who presented to the ER today for complaints of SOB, malaise, and coughing since last night. He is accompanied by his who is able to provide much of the information as the patient states he is having some difficulty recalling things and cannot find the words he wants to say to answer questions. They patient was also said to be confused yesterday but that has improved today per the and patient. The patient reports his cough is semi- productive but does not know what it looks like. He also reports that he was on bactrim for a urinary tract infection and took the last dose yesterday. He complains of pain in his upper back related to coughing as well. He had fevers overnight and this morning his temp was ~101 F. He denies any urinary symptoms, denies blood in the stool or urine, denies diarrhea, but complains of some mild abdominal discomfort and constipation for 3 days which is not uncommon for him. He is diaphoretic during the interview. He denies feeling SOB but his oxygen saturation drops into the high 80's when he takes his nasal cannula off. He denies any CP or palpitations. He denies any fall today but states he does fall on occasion due to pain and also his LLE. He denies any PIERRE, dizziness, lightheadedness, or ENT symptoms. No recent medication changes noted. No recent travel. No sick contacts. Physical Exam (per Admitting): General Appearance: WD/WN, no apparent distress, + pertinent finding ( diaphoretic) Head: normocephalic, atraumatic Eyes: PERRL, EOMI, sclerae normal ENT: hearing grossly normal, pharynx normal Neck: supple, no JVD, no carotid bruits, trachea midline Respiratory/Chest: chest non-tender, no respiratory distress, no accessory muscle use Cardiovascular: no edema, no gallop, no JVD Abdomen/GI: normal bowel sounds, non tender, no organomegaly, + distended Back: no CVA tenderness, + decreased range of motion Extremities/Musculoskelatal: no calf tenderness, normal capillary refill, + pedal edema Neurologic/Psych: no motor/sensory deficits, alert, normal mood/affect Skin: normal color, warm/dry, no rash Hospital Course Sepsis secondary to Pneumonia /acute respiratory failure : resolved ; no fever or chills , vital remains stable respiratory status improved markedly no 02 requirement at rest cont oral Zithromax for total 10 days tx pulmonology consulted ,appreciate input will need out pt pulmonology follow up in 1-2 weeks cont Prednisone 40 mg daily till seen by Pulmonology 2 step pulse oximetry done -pt requires 3 L 02 on ambulation script given to CM , arrangements made for home 02 HX of Transverse Myelitis Chronic Narcotic Use continue home narcotic use Depression/Anxiety continue home medications DVT ppx subq heparin FULL CODE DISPOSITION stable to be discharged pt home today Total time spent on discharge = 40 MINS This includes examination of the patient, discharge planning, medication reconciliation, and communication with other providers. Discharge Instructions Discharge Instructions Date of Service Apr 07, 2017. Admission Reason for Admission: Community Acquired Pneumonia Discharge Discharge Diagnosis / Problem: SEPSIS /PNEUMONIA Discharge Goals Goal(s): Decrease discomfort, Improve disease control, Diagnostic testing, Therapeutic intervention Activity Recommendations Activity Limitations: resume your previous activity Driving or Machine Use: no limitations . Instructions / Follow-Up Instructions / Follow-Up HOSPITAL FOLLOW UP :04/11/2017 10:30 AM Katelynn Cain DO [facility] NEED CHEST XRAY TO ASSESS BILATERAL INFILTRATION IN 1 WEEK PULMONOLOGY FOLLOW UP WITH DANIELLA LEWIS PA-C IN 1-2 WEEKS Current Hospital Diet Patient's current hospital diet: Regular Diet Discharge Diet Recommended Diet: Regular Diet Pending Studies Studies pending at discharge: no Medical Emergencies . Who to Call and When: Medical Emergencies: If at any time you feel your situation is an emergency, please call 911 immediately. . Non-Emergent Contact Non-Emergency issues call your: Primary Care Provider . . "Provider Documentation" section prepared by Lucy Richey. . VTE Core Measure Inpt VTE Proph given/why not?: Unfractionated heparin SQ Additional Copies To Darren Flores M.D.
[2017-04-07 17:24] VITALS: BP 112/66; PULSE 75; TEMP 36.8; O2SAT 96
[2017-04-08 18:10] LABS: REFERENCE QUEST TEST REPORT
[2017-04-09 22:31] LABS: MYELOPEROXIDASE AB <1.0 AI (<1.0)
== END 2017-04-07 18:42 | disposition home or self-care (01) | DRG 871 ==
LOC: EDBD 15:10 → C.EDC 15:12 → C.4E 18:27 → ENRESERV 18:42 → C.2T 04-02 22:17 → ENRESERV 04-06 19:12 → C.MS4W 04-06 20:02
PROVIDERS: ADMIT Internal Medicine; ATTEND Hospitalist
DX: A41.9 Sepsis, unspecified organism (principal); J18.9 Pneumonia, unspecified organism; J96.01 Acute respiratory failure with hypoxia; E87.1 Hypo-osmolality and hyponatremia; M62.82 Rhabdomyolysis; G37.3 Acute transverse myelitis in demyelinating disease of central nervous system; K59.00 Constipation, unspecified; J45.909 Unspecified asthma, uncomplicated; F41.9 Anxiety disorder, unspecified; I10 Essential (primary) hypertension; F31.9 Bipolar disorder, unspecified; R33.9 Retention of urine, unspecified; D64.9 Anemia, unspecified; K21.9 Gastro-esophageal reflux disease without esophagitis; G89.29 Other chronic pain; M54.5 Low back pain; M25.512 Pain in left shoulder; G43.909 Migraine, unspecified, not intractable, without status migrainosus; G62.9 Polyneuropathy, unspecified; F17.200 Nicotine dependence, unspecified, uncomplicated; Z51.81 Encounter for therapeutic drug level monitoring; Z79.899 Other long term (current) drug therapy; Z79.82 Long term (current) use of aspirin; Z79.1 Long term (current) use of non-steroidal anti-inflammatories (NSAID); Z87.440 Personal history of urinary (tract) infections; Z83.3 Family history of diabetes mellitus; Z82.49 Family history of ischemic heart disease and other diseases of the circulatory system; Z81.8 Family history of other mental and behavioral disorders; Z84.1 Family history of disorders of kidney and ureter

== ENCOUNTER 2017-04-13 20:58 | Emergency (ER) | payer BC, OTHER ==
[~2017-04-13] VITALS: Ht 167.6 cm; Wt 72.2 kg
[~2017-04-13 20:58] MED LIST changes: +AMPH20TA2 PO; -CYCL10TA7 PO; +METH500T37 PO; +MIRT15TA2 PO; +PRED20TA2 PO; -SUCR1TAB29 PO; +ZTHM250 PO
[2017-04-13 21:02] VITALS: TEMP 37; Ht 167.6 cm; Wt 72.2 kg
[2017-04-13 21:18] VITALS: O2SAT 95
--- NOTE | 2017-04-13 21:42 | DIAGNOSTIC IMAGING REPORT ---
CHEST ONE VIEW PORTABLE CLINICAL HISTORY: Left-sided chest pain COMPARISON STUDY: 04/05/2017 FINDINGS: The heart appears smaller than the prior study. There are resolving bilateral airspace opacities. There is been resolution of the trace pleural effusions. There is no focal pulmonary consolidation.[ IMPRESSION: Resolving bilateral airspace opacities, likely secondary to resolving pulmonary edema Electronically signed by: Dann Dalal M.D. 04/13/2017 9:41 PM Dictated Date/Time: 04/13/2017 9:40 PM
--- NOTE | 2017-04-13 21:54 | EMERGENCY ROOM VISIT NOTE ---
History Report prepared by Brendan: Bob yang Under the Supervision of: Dr. Remigio Solis M.D. First contact with patient: 21:26 Chief Complaint: CHEST PAIN Stated Complaint: CHEST PAIN ON LEFT SIDE Nursing Triage Summary: Pt had pnx and was to go for a f/u cxr. Pt missied appt for xray. Pt developed some mild left sided cp with mild sob. Pt states he needs a new cxr for his appt tomorrow. History of Present Illness The patient is a 57 year old male who presents to the Emergency Room with complaints of constant chest pain that started a couple of days ago. He rates his pain as an 8/10 in severity. The patient states that the pain is located on the left side of his chest. The patient also reports that he has been fatigued recently. He admits that he was recently here in the ED and diagnosed with pneumonia. The patient states that he was supposed go to his appointment two days ago for a follow up x-ray. He reports that he missed his appointment because "I did not know it was so soon". The patient states that he has an appointment tomorrow with Dr. Lim and would like an x-ray to give them. Source of History: patient Onset: a couple of days ago Position: chest (left) Symptom Intensity: 8/10 Timing: constant Associated Symptoms: + fatigue Review of Systems See HPI for pertinent positives & negatives. A total of 10 systems reviewed and were otherwise negative. 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 (14) Low testosterone (15) MIGRAINE UNSPECIFIED W/O INTRACT MGRN W/O STATUS MIGRAINOSUS (16) Neuropathy (17) Tobacco abuse (18) Urinary retention Surgical Problems: (1) S/P decompression of ulnar nerve at elbow Family History Anxiety disorder MOTHER Cancer Diabetes mellitus MOTHER FH: CAD (coronary artery disease) FATHER BROTHER FH: CHF (congestive heart failure) FATHER FH: HTN (hypertension) FH: dementia FATHER FH: diabetes mellitus FH: kidney failure Heart disease Hypertension MOTHER Kidney disease SISTER Social History Smoking Status: Former Smoker Alcohol Use: none Drug Use: none Marital Status: Housing Status: lives with significant other Occupation Status: disabled Current/Historical Medications Scheduled Amphetamine-Dextroamphetamine 20MG (Adderall 20MG), 20 MG PO DAILY Aspirin (Aspirin Ec), 81 MG PO DAILY Bupropion (Wellbutrin Sr), 200 MG PO BID Buspirone Hcl (Buspirone Hcl), 30 MG PO TID Duloxetine HCl (Duloxetine HCl), 60 MG PO DAILY Gabapentin (Gabapentin), 800 MG PO QID Meloxicam (Mobic), 7.5 MG PO BID Methocarbamol (Robaxin), 500 MG PO TID Mirtazapine Soltab (Remeron Soltab), 15 MG PO HS Pantoprazole (Pantoprazole Sodium), 40 MG PO BID Prednisone (Prednisone Tab), 40 MG PO DAILY Testosterone Cypionate (Testosterone Cypionate), 100 MG INJ WK Tolterodine Tartrate (Detrol LA), 2 MG PO BID Scheduled PRN Acetamin/Butalbital/Caffeine (Fioricet), 1-2 TABS PO BID PRN for Headache Diphenoxylate/Atropine (Lomotil), 1 TAB PO UD PRN for Diarrhea Hydroxyzine HCl (Hydroxyzine Pamoate), 50 MG PO Q8 PRN for Anxiety Ondansetron Hcl (Zofran), 4 MG PO Q8 PRN for Nausea Oxycodone Hcl (Oxycodone Hcl), 20 MG PO QID PRN for Pain Rizatriptan Benzoate (Rizatriptan Benzoate), 10 MG PO UD PRN for Headache Tadalafil (Cialis), 5 MG PO UD PRN for erectile dysfunction Allergies Coded Allergies: Ciprofloxacin (Verified Allergy, Intermediate, RASH, 04/13/17) rash / urticaria proximal to IV site after infusion 04/07/15 Penicillins (Verified Allergy, Intermediate, RASH, 04/13/17) Physical Exam Vital Signs Date Time Temp Pulse Resp B/P (MAP) Pulse Ox O2 Delivery O2 Flow Rate FiO2 04/13/17 22:31 94 18 110/74 97 Room Air 04/13/17 21:19 99 04/13/17 21:18 95 Room Air 04/13/17 21:16 Room Air 04/13/17 21:02 37.0 114 18 131/86 97 Room Air Physical Exam GENERAL: Patient is a healthy-appearing well-nourished 57 year old male. HEAD: Normocephalic atraumatic EYES: Ocular movements intact pupils equal and react to light OROPHARYNX mucous membranes are moist no exudates present no erythema or edema present NECK: Supple no nuchal rigidity CHEST: Good equal expansion LUNGS: Clear and equal to auscultation CARDIAC: Normal S1 and S2 ABDOMEN: Soft nontender no guarding BACK: No CVA tenderness EXTREMITIES: No pain upon palpation normal muscle strength in all groups no clubbing cyanosis or edema NEURO: Patient is following commands and answering questions appropriately. Alert and oriented x3 Cranial Nerves 2-12 grossly intact Medical Decision & Procedures ER Provider Diagnostic Interpretation: X-ray results as stated below per interpretation by me and the radiologist: CHEST ONE VIEW PORTABLE CLINICAL HISTORY: Left-sided chest pain COMPARISON STUDY: 04/05/2017 FINDINGS: The heart appears smaller than the prior study. There are resolving bilateral airspace opacities. There is been resolution of the trace pleural effusions. There is no focal pulmonary consolidation.[ IMPRESSION: Resolving bilateral airspace opacities, likely secondary to resolving pulmonary edema Electronically signed by: Dann Dalal M.D. 04/13/2017 9:41 PM Dictated Date/Time: 04/13/2017 9:40 PM ED Course 2226: Past medical records reviewed. The patient was evaluated in room B02. A complete history and physical examination was performed. 2235: Upon reexamination the patient is doing well. I discussed results and treatment plan with the patient. He verbalizes agreement and understanding. The patient is ready for discharge. Medical Decision The differential diagnosis includes etiologies such as cardiac ischemia, aortic dissection, pulmonary embolism, pneumonia, pneumothorax, musculoskeletal, infections, pericarditis, myocarditis, esophageal rupture, gastrointestinal, as well as others were entertained. This is a 57-year-old male who presents emergency department for a repeat chest x-ray. The patient missed his appointment over repeat chest x-ray on Monday therefore he is here for a chest x-ray. The chest x-ray shows improvement in the patient. He does have a follow -up appointment with Dr. Lim tomorrow which I stressed he should not miss. Medication Reconcilliation Current Medication List: was personally reviewed by me Blood Pressure Screening Patient's blood pressure: Elevated blood pressure Blood pressure disposition: Elevated BP felt to be situational Impression Primary Impression: Normal chest x-ray Scribe Attestation The scribe's documentation has been prepared under my direction and personally reviewed by me in its entirety. I confirm that the note above accurately reflects all work, treatment, procedures, and medical decision making performed by me. Departure Information Dispostion Home / Self-Care Referrals Darren Flores M.D. (PCP) Forms Call Back Authorization, HOME CARE DOCUMENTATION FORM, IMPORTANT VISIT INFORMATION Patient Instructions My [facility] Additional Instructions Follow up with Dr Lim's office You have been examined and treated today on an emergency basis only. This is not a substitute for, or an effort to provide, complete comprehensive medical care. It is impossible to recognize and treat all injuries or illnesses in a single emergency department visit. It is therefore important that you follow up closely with Dr Flores. Call as soon as possible for an appointment. Thank you for your time and consideration. I look forward to speaking with you again soon. Please don't hesitate to call us if you have any questions.
[2017-04-13 22:31] VITALS: BP 110/74; PULSE 94; O2SAT 97
== END 2017-04-13 22:38 | disposition home or self-care (01) ==
LOC: C.EDB 21:01
DX: R07.89 Other chest pain (principal); I10 Essential (primary) hypertension; F31.9 Bipolar disorder, unspecified; J45.909 Unspecified asthma, uncomplicated; F41.9 Anxiety disorder, unspecified; K57.30 Diverticulosis of large intestine without perforation or abscess without bleeding; K21.9 Gastro-esophageal reflux disease without esophagitis; G89.29 Other chronic pain; M54.5 Low back pain; Z87.11 Personal history of peptic ulcer disease; Z87.891 Personal history of nicotine dependence; Z79.82 Long term (current) use of aspirin; Z79.899 Other long term (current) drug therapy; Z88.0 Allergy status to penicillin; Z88.2 Allergy status to sulfonamides; Z83.3 Family history of diabetes mellitus; Z82.49 Family history of ischemic heart disease and other diseases of the circulatory system; Z84.1 Family history of disorders of kidney and ureter; Z80.9 Family history of malignant neoplasm, unspecified; Z81.8 Family history of other mental and behavioral disorders

== ENCOUNTER 2017-04-21 00:52 | Emergency (ER) | payer BC ==
[~2017-04-21] VITALS: Ht 167.6 cm; Wt 75.9 kg
[~2017-04-21 00:52] MED LIST changes: -ZTHM250 PO
[2017-04-21 01:00] VITALS: TEMP 37.3; Ht 167.6 cm; Wt 75.9 kg
[2017-04-21] MEDS ORDERED: SODIUM CHLORIDE 0.9% 1000ML 1,000 ML IV STA (02:21)
[2017-04-21 02:47] LABS: BASO % 0.3 %; BASO ABS # 0.03 K/uL (0-0.2); COMPLETE YES; EOS % 1.1 %; HEMATOCRIT 30.4 % (42-52); IG% 0.4 %; LYMPH % 34.7 %; LYMPH ABS # 3.43 K/uL (1.2-3.4); MEAN CELL VOLUME 86.9 fL (80-100); MEAN CORPUSCULAR HGB CONC 32.2 g/dl (32-36); MEAN PLATELET VOLUME 8.7 fL (7.4-10.4); MONO % 6.7 %; NEUT % 56.8 %; PLATELET COUNT 520 K/uL (130-400); WHITE BLOOD COUNT 9.88 K/uL (4.8-10.8)
[2017-04-21 03:05] LABS: CREATININE 1.1 mg/dl (0.60-1.40)
[2017-04-21 03:06] LABS: BUN/CREATININE RATIO 20.6 (10-20); CALCIUM 8.2 mg/dl (8.5-10.1); POTASSIUM 3.7 mmol/L (3.5-5.1)
[2017-04-21 03:08] LABS: ALB/GLOB RATIO 1.1 (0.9-2)
[2017-04-21 04:29] LABS: URINE APPEARANCE CLEAR (CLEAR); URINE BILIRUBIN NEG (NEG); URINE COLOR DK YELLOW; URINE EPITHELIAL CELL AUTO >30 /lpf (0-5); URINE NITRITE NEG (NEG); URINE SPECIFIC GRAVITY 1.038 (1.000-1.030); UROBILINOGEN NEG (NEG); ZZURINE CULT IF INDIC CATH NO
[2017-04-21 04:48] LABS: MANUAL MICROSCOPIC REQUIRED? NO; REVIEW REQ? YES; SULFASALICYLIC ACID NEG (NEG)
[2017-04-21 05:08] LABS: BENZODIAZEPINE, URINE POS (NEG); COCAINE,URINE NEG (NEG); PHENCYCLIDINE, URINE NEG (NEG)
--- NOTE | 2017-04-21 05:27 | EMERGENCY ROOM VISIT NOTE ---
ED Visit Note First contact with patient: 02:05 I saw this patient in conjunction with Aishwarya Tavarez PA-C. I agree with her decision making and treatment plan. The patient appears to be significantly lethargic during my interaction with him. We discussed his current medications and his tox screen.
--- NOTE | 2017-04-21 06:34 | EMERGENCY ROOM VISIT NOTE ---
History First contact with patient: 02:05 Chief Complaint: URINARY SYMPTOMS Stated Complaint: BROWN URINE,NEED TO BE CHECKED FOR RABDO Nursing Triage Summary: pt c/o brown urine that "I just noticed tonight." is concerned about rhabdo. denies pain. pt self caths. abd soft, non tender. bowel sounds WNL. History of Present Illness The patient is a 57 year old male who presents to the Emergency Room with complaints of brown urine. The patient states that he noticed that his urine was brown when he was cathing himself tonight. He would like to be checked for rhabdomyolysis. He states he has had rhabdo in the past. He does have some muscle aches but states this is chronic for the patient. The patient was recently in the hospital for pneumonia. He has been wearing 3 L of oxygen at home at all times since then. He denies any recent drug use. He denies chest pain, shortness of breath, fevers/chills or abdominal pain. Review of Systems A complete 10 point review of systems was reviewed with the patient with pertinent positives and negatives as per history of present illness. All else were negative. 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 (14) Low testosterone (15) MIGRAINE UNSPECIFIED W/O INTRACT MGRN W/O STATUS MIGRAINOSUS (16) Neuropathy (17) Tobacco abuse (18) Urinary retention Surgical Problems: (1) S/P decompression of ulnar nerve at elbow Family History Anxiety disorder MOTHER Cancer Diabetes mellitus MOTHER FH: CAD (coronary artery disease) FATHER BROTHER FH: CHF (congestive heart failure) FATHER FH: HTN (hypertension) FH: dementia FATHER FH: diabetes mellitus FH: kidney failure Heart disease Hypertension MOTHER Kidney disease SISTER Social History Smoking Status: Current Every Day Smoker Alcohol Use: none Drug Use: none Marital Status: Housing Status: lives with significant other Occupation Status: disabled Current/Historical Medications Scheduled Amphetamine-Dextroamphetamine 20MG (Adderall 20MG), 20 MG PO DAILY Aspirin (Aspirin Ec), 81 MG PO DAILY Bupropion (Wellbutrin Sr), 200 MG PO BID Buspirone Hcl (Buspirone Hcl), 30 MG PO TID Duloxetine HCl (Duloxetine HCl), 60 MG PO DAILY Gabapentin (Gabapentin), 800 MG PO QID Meloxicam (Mobic), 7.5 MG PO BID Methocarbamol (Robaxin), 500 MG PO TID Mirtazapine Soltab (Remeron Soltab), 15 MG PO HS Pantoprazole (Pantoprazole Sodium), 40 MG PO BID Prednisone (Prednisone Tab), 40 MG PO DAILY Testosterone Cypionate (Testosterone Cypionate), 100 MG INJ WK Tolterodine Tartrate (Detrol LA), 2 MG PO BID Scheduled PRN Acetamin/Butalbital/Caffeine (Fioricet), 1-2 TABS PO BID PRN for Headache Diphenoxylate/Atropine (Lomotil), 1 TAB PO UD PRN for Diarrhea Hydroxyzine HCl (Hydroxyzine Pamoate), 50 MG PO Q8 PRN for Anxiety Ondansetron Hcl (Zofran), 4 MG PO Q8 PRN for Nausea Oxycodone Hcl (Oxycodone Hcl), 20 MG PO 5XD PRN for Pain Rizatriptan Benzoate (Rizatriptan Benzoate), 10 MG PO UD PRN for Headache Tadalafil (Cialis), 5 MG PO UD PRN for erectile dysfunction Physical Exam Vital Signs Date Time Temp Pulse Resp B/P (MAP) Pulse Ox O2 Delivery O2 Flow Rate FiO2 04/21/17 09:07 68 18 127/82 100 Room Air 04/21/17 08:28 66 22 106/72 99 Nasal Cannula 4.0 04/21/17 07:10 69 20 111/71 99 Nasal Cannula 4.0 04/21/17 05:46 74 18 107/75 98 Nasal Cannula 3.0 04/21/17 04:16 71 18 109/69 99 Nasal Cannula 3.0 04/21/17 02:46 83 18 101/54 98 Nasal Cannula 3.0 04/21/17 01:00 37.3 97 18 121/66 97 Room Air Physical Exam VITALS: Vitals are noted on the nurse's note and reviewed by myself. Vital signs stable. GENERAL: This is a 57-year-old male, in no acute distress, nondiaphoretic, well- developed well-nourished. SKIN: The skin was without rashes, erythema, edema, or bruising. HEAD: Normocephalic atraumatic. EARS: External auditory canals clear, tympanic membranes pearly chandler without erythema or effusion bilaterally. EYES: Pupils equal round and reactive to light and accommodation. Conjunctivae without injection, sclerae without icterus. MOUTH: Mucous membranes moist. Tonsils are not enlarged. Pharynx without erythema or exudate. NECK: Supple without nuchal rigidity. No lymphadenopathy. HEART: Regular rate and rhythm without murmurs gallops or rubs. LUNGS: Clear to auscultation bilaterally without wheezes, rales or rhonchi. ABDOMEN: Soft, nontender to palpation. NEURO: Patient's speech is slurred and he falls asleep easily. Patient is arousable to verbal stimuli. Medical Decision & Procedures ER Provider Diagnostic Interpretation: CHEST X-RAY: No acute process. Laboratory Results 04/21/17 02:28 Red Blood Count 3.50, Mean Corpuscular Volume 86.9, Mean Corpuscular Hemoglobin 28.0, Mean Corpuscular Hemoglobin Concent 32.2, Mean Platelet Volume 8.7, Neutrophils (%) (Auto) 56.8, Lymphocytes (%) (Auto) 34.7, Monocytes (%) (Auto) 6.7, Eosinophils (%) (Auto) 1.1, Basophils (%) (Auto) 0.3, Neutrophils # (Auto) 5.61, Lymphocytes # (Auto) 3.43, Monocytes # (Auto) 0.66, Eosinophils # (Auto) 0.11, Basophils # (Auto) 0.03 04/21/17 02:28 Test 04/21/17 02:28 04/21/17 04:10 White Blood Count 9.88 K/uL (4.8-10.8) Red Blood Count 3.50 M/uL (4.7-6.1) Hemoglobin 9.8 g/dL (14.0-18.0) Hematocrit 30.4 % (42-52) Mean Corpuscular Volume 86.9 fL (80-100) Mean Corpuscular Hemoglobin 28.0 pg (25-34) Mean Corpuscular Hemoglobin Concent 32.2 g/dl (32-36) Platelet Count 520 K/uL (130-400) Mean Platelet Volume 8.7 fL (7.4-10.4) Neutrophils (%) (Auto) 56.8 % Lymphocytes (%) (Auto) 34.7 % Monocytes (%) (Auto) 6.7 % Eosinophils (%) (Auto) 1.1 % Basophils (%) (Auto) 0.3 % Neutrophils # (Auto) 5.61 K/uL (1.4-6.5) Lymphocytes # (Auto) 3.43 K/uL (1.2-3.4) Monocytes # (Auto) 0.66 K/uL (0.11-0.59) Eosinophils # (Auto) 0.11 K/uL (0-0.5) Basophils # (Auto) 0.03 K/uL (0-0.2) RDW Standard Deviation 54.4 fL (36.4-46.3) RDW Coefficient of Variation 17.2 % (11.5-14.5) Immature Granulocyte % (Auto) 0.4 % Immature Granulocyte # (Auto) 0.04 K/uL (0.00-0.02) Anion Gap 5.0 mmol/L (3-11) Est Creatinine Clear Calc Drug Dose 68.4 ml/min Estimated GFR () 87.1 Estimated GFR (Non- 75.2 BUN/Creatinine Ratio 20.6 (10-20) Calcium Level 8.2 mg/dl (8.5-10.1) Total Bilirubin 0.2 mg/dl (0.2-1) Aspartate Amino Transf (AST/SGOT) 18 U/L (15-37) Alanine Aminotransferase (ALT/SGPT) 39 U/L (12-78) Alkaline Phosphatase 94 U/L (45-117) Total Creatine Kinase 193 U/L (39-308) Total Protein 5.9 gm/dl (6.4-8.2) Albumin 3.1 gm/dl (3.4-5.0) Globulin 2.8 gm/dl (2.5-4.0) Albumin/Globulin Ratio 1.1 (0.9-2) Urine Color DK YELLOW Urine Appearance CLEAR (CLEAR) Urine pH 8.0 (4.5-7.5) Urine Specific Lexa 1.038 (1.000-1.030) Urine Protein NEG (NEG) Urine Glucose (UA) NEG (NEG) Urine Ketones TRACE (NEG) Urine Occult Blood NEG (NEG) Urine Nitrite NEG (NEG) Urine Bilirubin NEG (NEG) Urine Urobilinogen NEG (NEG) Urine Leukocyte Esterase TRACE (NEG) Urine WBC (Auto) 1-5 /hpf (0-5) Urine RBC (Auto) 0-4 /hpf (0-4) Urine Hyaline Casts (Auto) 1-5 /lpf (0-5) Urine Epithelial Cells (Auto) >30 /lpf (0-5) Urine Bacteria (Auto) NEG (NEG) Urine Renal Epithelial Cells /lpf (0-5) Urine Opiates Screen NEG (NEG) Urine Methadone, Qualitative NEG (NEG) Urine Barbiturates POS (NEG) Urine Phencyclidine (PCP) Level NEG (NEG) Ur Amphetamine/Methamphetamine NEG (NEG) MDMA (Ecstasy) Screen POS (NEG) Urine Benzodiazepines Screen POS (NEG) Urine Cocaine Metabolite NEG (NEG) Urine Marijuana (THC) NEG (NEG) Medications Administered Medications (Trade) Dose Ordered Sig/Gurpreet Route Start Time Stop Time Status Last Admin Dose Admin Sodium Chloride 1,000 ml @ 999 mls/hr Q1H1M STAT IV 04/21/17 02:21 04/21/17 03:21 DC 04/21/17 02:46 999 MLS/HR ED Course The patient was evaluated as above. Labs were drawn and IV access was obtained. Patient was medicated with 1 L normal saline solution. Patient was reevaluated and findings were discussed with the patient. At this time, the patient appeared to be very sedated and had trouble staying awake while talking to me. The patient was advised that he will need to find a ride or someone to ride home with him in a taxi before he is discharged. The patient did become slightly agitated and security was called to the room. Patient was agreeable to lay back in bed and rested for a few hours until he was less sedated. Discharge instructions were reviewed with the patient. The patient verbalized understanding of my assessment and treatment plan and was discharged home in good condition. Medical Decision Differential diagnosis includes rhabdomyolysis, urinary tract infection, drug intoxication, among others. The patient is a 57-year-old male who presents today complaining of dark- colored urine. The patient does have a history of rhabdomyolysis. CK was elevated and was found to be within normal limits. Labs were otherwise unremarkable. Patient has a stable anemia. Urinalysis was not suggestive of infection. Chest x-ray was obtained due to recent history of pneumonia and appears unchanged from previous. The patient is well-known to this emergency department and appears to be more sedated than usual on today's visit. A urine drug screen was obtained and was positive for barbiturates, benzodiazepines and MDMA. Of note, urine drug screen is not positive for opioids, which the patient is prescribed. I questioned the patient regarding this and he stated that he does take Valium and is prescribed this. I informed him that he had not received a prescription for Valium in over one year. He states that he was prescribed a long time ago and still has some left. I was not comfortable with the patient being discharged home with this amount of sedation. He was monitored in the emergency room for several hours until he was awake, alert and able to be discharged safely. The patient was independently evaluated by Dr. Cha, ED attending physician, who agreed with my assessment and treatment plan. Medication Reconcilliation Current Medication List: was personally reviewed by me Blood Pressure Screening Patient's blood pressure: Normal blood pressure Impression Primary Impression: Symptoms involving urinary system Departure Information Dispostion Home / Self-Care Condition FAIR Referrals Darren Flores M.D. (PCP) Patient Instructions My [facility] Additional Instructions Rest and drink fluids. Follow-up with your primary care provider. Call them today for appointment. Return to the emergency department with any worsening or new/concerning symptoms.
--- NOTE | 2017-04-21 07:20 | DIAGNOSTIC IMAGING REPORT ---
CHEST ONE VIEW PORTABLE CLINICAL HISTORY: Recent pneumonia. COMPARISON STUDY: Chest CT April 03, 2017 and chest radiograph April 13, 2017. FINDINGS: No pneumothorax or pleural effusion is present. Cardiomediastinal silhouette is normal. Mild interstitial thickening and bilateral opacities has slightly increased. IMPRESSION: Slight increase in interstitial thickening and bilateral opacities, greater within the right lung. The findings may reflect an infectious process or pulmonary edema. Electronically signed by: Brian Zepeda M.D. 04/21/2017 7:19 AM Dictated Date/Time: 04/21/2017 7:15 AM
[2017-04-21 09:07] VITALS: BP 127/82; PULSE 68; O2SAT 100
[2017-04-27 09:31] LABS: HYDROXYETHYLFLURAZEPAM CONF NEGATIVE NG/ML (CUTOFF=50); HYDROXYMIDAZOLAM NEGATIVE NG/ML (CUTOFF=50); HYDROXYTRIAZOLAM CONF NEGATIVE NG/ML (CUTOFF=50); TEMAZEPAM CONF NEGATIVE NG/ML (CUTOFF=50)
== END 2017-04-21 09:30 | disposition home or self-care (01) ==
LOC: C.EDB 00:55
DX: R39.89 Other symptoms and signs involving the genitourinary system (principal); J45.909 Unspecified asthma, uncomplicated; I10 Essential (primary) hypertension; K21.9 Gastro-esophageal reflux disease without esophagitis; F17.200 Nicotine dependence, unspecified, uncomplicated; F32.9 Major depressive disorder, single episode, unspecified; Z87.01 Personal history of pneumonia (recurrent); Z98.890 Other specified postprocedural states; Z81.8 Family history of other mental and behavioral disorders; Z83.3 Family history of diabetes mellitus; Z82.49 Family history of ischemic heart disease and other diseases of the circulatory system; Z84.2 Family history of other diseases of the genitourinary system; Z79.82 Long term (current) use of aspirin; Z79.899 Other long term (current) drug therapy

== ENCOUNTER 2017-04-26 00:29 | Emergency (ER) | payer BC ==
[~2017-04-26] VITALS: Ht 167.6 cm; Wt 75.9 kg
[2017-04-26 00:40] VITALS: TEMP 36.6; Ht 167.6 cm; Wt 75.9 kg
[2017-04-26 00:52] VITALS: O2SAT 95
[2017-04-26] MEDS ORDERED: AZIT250T PO (01:43)
[2017-04-26] MEDS ORDERED: AZITHROMYCIN 250 MG TAB PO ONE (01:45)
[2017-04-26 01:48] VITALS: BP 122/83; PULSE 93; O2SAT 95
--- NOTE | 2017-04-26 06:37 | DIAGNOSTIC IMAGING REPORT ---
CHEST 2 VIEWS ROUTINE HISTORY: 57 years-old Male Cough. Chest discomfort. Acute cough. Initial exam. COMPARISON: Chest radiograph 04/21/2017 and 04/13/2017. TECHNIQUE: Frontal and lateral views of the chest. FINDINGS: Cardiac silhouette is within normal limits. There is no pneumothorax or pleural effusion. Minimal background interstitial opacities are again noted without focal lobar airspace consolidation. There is improved aeration in the lung bases. The bones are grossly intact. IMPRESSION: Improved aeration of the lung bases with persistent mild background interstitial coarsening favoring chronic changes. No lobar airspace consolidation. The above report was generated using voice recognition software. It may contain grammatical, syntax or spelling errors. Electronically signed by: Alfie Petty M.D. 04/26/2017 6:35 AM Dictated Date/Time: 04/26/2017 6:33 AM
--- NOTE | 2017-04-26 22:33 | EMERGENCY ROOM VISIT NOTE ---
History First contact with patient: 00:44 Chief Complaint: CHEST PAIN Stated Complaint: CHEST DISCOMFORT AND TIGHTNESS, FRONT AND REAR LEF Nursing Triage Summary: c/o left sided chest soreness started tonight. History of Present Illness The patient is a 57 year old male who presents to the Emergency Room with complaints of bilateral chest pain for the past several hours. The patient has a history of chronic chest discomfort and is well-known to the emergency department. He states that he is concerned that he may have pneumonia, as he was diagnosed with this earlier in the month and admitted for sepsis. The patient has not had fever or chills. He has an intermittent cough. He does not report other symptoms and rates his discomfort an 8/10. Review of Systems More than 10 systems were reviewed and otherwise negative with the exception of history of present illness. 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 (14) Low testosterone (15) MIGRAINE UNSPECIFIED W/O INTRACT MGRN W/O STATUS MIGRAINOSUS (16) Neuropathy (17) Tobacco abuse (18) Urinary retention Surgical Problems: (1) S/P decompression of ulnar nerve at elbow Family History Anxiety disorder MOTHER Cancer Diabetes mellitus MOTHER FH: CAD (coronary artery disease) FATHER BROTHER FH: CHF (congestive heart failure) FATHER FH: HTN (hypertension) FH: dementia FATHER FH: diabetes mellitus FH: kidney failure Heart disease Hypertension MOTHER Kidney disease SISTER Social History Smoking Status: Current Every Day Smoker Alcohol Use: none Drug Use: none Marital Status: Housing Status: lives with significant other Occupation Status: disabled Current/Historical Medications Scheduled Amphetamine-Dextroamphetamine 20MG (Adderall 20MG), 20 MG PO DAILY Aspirin (Aspirin Ec), 81 MG PO DAILY Azithromycin (Zithromax), 250 MG PO DAILY Bupropion (Wellbutrin Sr), 200 MG PO BID Buspirone Hcl (Buspirone Hcl), 30 MG PO TID Duloxetine HCl (Duloxetine HCl), 60 MG PO DAILY Gabapentin (Gabapentin), 800 MG PO QID Meloxicam (Mobic), 7.5 MG PO BID Methocarbamol (Robaxin), 500 MG PO TID Mirtazapine Soltab (Remeron Soltab), 15 MG PO HS Pantoprazole (Pantoprazole Sodium), 40 MG PO BID Testosterone Cypionate (Testosterone Cypionate), 100 MG INJ WK Tolterodine Tartrate (Detrol LA), 2 MG PO BID Scheduled PRN Acetamin/Butalbital/Caffeine (Fioricet), 1-2 TABS PO BID PRN for Headache Diphenoxylate/Atropine (Lomotil), 1 TAB PO UD PRN for Diarrhea Hydroxyzine HCl (Hydroxyzine Pamoate), 50 MG PO Q8 PRN for Anxiety Ondansetron Hcl (Zofran), 4 MG PO Q8 PRN for Nausea Oxycodone Hcl (Oxycodone Hcl), 20 MG PO 5XD PRN for Pain Rizatriptan Benzoate (Rizatriptan Benzoate), 10 MG PO UD PRN for Headache Tadalafil (Cialis), 5 MG PO UD PRN for erectile dysfunction Physical Exam Vital Signs Date Time Temp Pulse Resp B/P (MAP) Pulse Ox O2 Delivery O2 Flow Rate FiO2 04/26/17 01:48 93 18 122/83 95 Room Air 04/26/17 00:53 93 04/26/17 00:52 103 18 142/91 95 Room Air 04/26/17 00:52 95 Room Air 04/26/17 00:50 95 Room Air 04/26/17 00:40 36.6 99 20 132/83 96 Room Air Physical Exam VITALS: Vitals are noted on the nurse's note and reviewed by myself. Vital signs stable. GENERAL: Well-developed, well-nourished, white male, who is in no acute distress and resting comfortably. Patient is cooperative with the examination. HEAD: Normocephalic atraumatic. HEART: Regular rate and rhythm without murmurs gallops or rubs. LUNGS: Clear to auscultation bilaterally without wheezes, rales or rhonchi. No retractions or accessory muscle use. CHEST WALL: Mild tenderness appreciated throughout the anterior chest wall and right lateral chest wall. No crepitus or flail chest. No significant rash or lesion. ABDOMEN: Positive normal bowel sounds x 4. Soft, nontender, without masses or organomegaly. No guarding or rebound tenderness. MUSCULOSKELETAL: No muscle atrophy, erythema, or edema noted. Full range of motion without joint tenderness in all extremities. Medical Decision & Procedures ER Provider Diagnostic Interpretation: CHEST 2 VIEWS ROUTINE HISTORY: 57 years-old Male Cough. Chest discomfort. Acute cough. Initial exam. COMPARISON: Chest radiograph 04/21/2017 and 04/13/2017. TECHNIQUE: Frontal and lateral views of the chest. FINDINGS: Cardiac silhouette is within normal limits. There is no pneumothorax or pleural effusion. Minimal background interstitial opacities are again noted without focal lobar airspace consolidation. There is improved aeration in the lung bases. The bones are grossly intact. IMPRESSION: Improved aeration of the lung bases with persistent mild background interstitial coarsening favoring chronic changes. No lobar airspace consolidation. Medications Administered Medications (Trade) Dose Ordered Sig/Gurpreet Route Start Time Stop Time Status Last Admin Dose Admin Azithromycin (Zithromax Tab) 500 mg NOW ONCE PO 04/26/17 01:45 04/26/17 01:46 DC 04/26/17 01:39 500 MG ECG Change: Poor data quality, interpretation may be adversely affected Normal sinus rhythm Possible Left atrial enlargement Borderline ECG When compared with ECG of 13-APR-2017 21:13, No significant change was found Confirmed by SUSANNE HURT ([id number]) on 04/26/2017 2:20:42 PM ED Course Physical exam and history were performed. Nursing notes, EMR, and Medication List were personally reviewed. Patient appears to have vague chest pain for the past half day. The patient is well-known to the emergency department. He believes that he has a pneumonia causing his symptoms. EKG was performed and is unchanged from previous. Chest x-ray did not show significant findings to suggest a distinct infectious process. I discussed options of care with the patient, and after reviewing his admission earlier this month will start him on Zithromax as this was recommended by infectious disease. The patient is to have close follow-up with his primary care physician for further management. He was otherwise invited back to the ER with any new, worsening, or concerning symptoms. The chart was completed utilizing [employer] Voice Recognition Software. Grammatical errors, random word insertions, pronoun errors, and incomplete sentences are an occasional consequence of this system due to software limitations, ambient noise, and hardware issues. Any formal questions or concerns about the content, text, or information contained within the body of this dictation should be directly addressed to the provider for clarification. . Medical Decision Differential diagnosis includes, but is not limited to: Myocardial infarction, dysrhythmia, pericarditis, pneumothorax, aortic aneurysm/dissection, DVT/PE, anxiety, GERD, PUD, electrolyte imbalance, thyroid disorder, pneumonia, bronchitis, pancreatitis, and others Impression Primary Impression: Nonspecific chest pain Departure Information Dispostion Home / Self-Care Condition GOOD Prescriptions Azithromycin (Zithromax) 250 Mg Tab 250 MG PO DAILY for 4 Days, #4 TAB Prov: Alen Puga PA-C 04/26/17 Forms Call Back Authorization, HOME CARE DOCUMENTATION FORM, IMPORTANT VISIT INFORMATION Patient Instructions My [facility] Additional Instructions You were seen and evaluated today on an emergency basis only. This is not a substitute for, or an effort to provide, complete comprehensive medical care. It is not possible to recognize and treat all injuries or illnesses in a single emergency department visit. For this reason it is recommended that you followup with your primary care physician this week for ongoing care and evaluation. Take Zithromax 200 mg daily for the next 4 days. You are welcome to return to the emergency department anytime with new, worsening, or concerning symptoms.
== END 2017-04-26 01:55 | disposition home or self-care (01) ==
LOC: C.EDB 00:31
DX: R07.9 Chest pain, unspecified (principal); I10 Essential (primary) hypertension; F41.9 Anxiety disorder, unspecified; F31.9 Bipolar disorder, unspecified; K57.30 Diverticulosis of large intestine without perforation or abscess without bleeding; K21.9 Gastro-esophageal reflux disease without esophagitis; G89.29 Other chronic pain; J45.909 Unspecified asthma, uncomplicated; D64.9 Anemia, unspecified; F17.200 Nicotine dependence, unspecified, uncomplicated; Z87.11 Personal history of peptic ulcer disease; Z87.01 Personal history of pneumonia (recurrent); Z98.890 Other specified postprocedural states; Z79.82 Long term (current) use of aspirin; Z79.899 Other long term (current) drug therapy; Z83.3 Family history of diabetes mellitus; Z82.49 Family history of ischemic heart disease and other diseases of the circulatory system; Z84.1 Family history of disorders of kidney and ureter; Z81.8 Family history of other mental and behavioral disorders

== ENCOUNTER → 2017-05-03 | Outpatient (CLI) | payer BC ==
[~2017-05-03] MED LIST changes: -PRED20TA2 PO; -VST25HP PO
[2017-05-03 19:16] LABS: INR 0.9 (0.9-1.1); PARTIAL THROMBOPLASTIN RATIO 1.2; PROTHROMBIN TIME (PATIENT) 9.6 SECONDS (9.0-12.0)
[2017-05-03 19:23] LABS: BASO % 0.3 %; BASO ABS # 0.03 K/uL (0-0.2); COMPLETE YES; EOS % 2.7 %; HEMATOCRIT 37.9 % (42-52); IG% 0.2 %; LYMPH % 23.1 %; LYMPH ABS # 2.45 K/uL (1.2-3.4); MEAN CELL VOLUME 87.9 fL (80-100); MEAN CORPUSCULAR HEMOGLOBIN 28.3 pg (25-34); MEAN CORPUSCULAR HGB CONC 32.2 g/dl (32-36); MEAN PLATELET VOLUME 9.8 fL (7.4-10.4); NEUT % 63.7 %; PLATELET COUNT 269 K/uL (130-400); RED BLOOD COUNT 4.31 M/uL (4.7-6.1); WHITE BLOOD COUNT 10.61 K/uL (4.8-10.8)
[2017-05-03 19:30] LABS: ALT/SGPT 51 U/L (12-78); AST/SGOT 58 U/L (15-37); BLOOD UREA NITROGEN 21 mg/dl (7-18); BUN/CREATININE RATIO 16.1 (10-20); CALCIUM 9.3 mg/dl (8.5-10.1); CARBON DIOXIDE 29 mmol/L (21-32); CHLORIDE 102 mmol/L (98-107); GLUCOSE 94 mg/dl (70-99); SODIUM 139 mmol/L (136-145)
[2017-05-03 19:33] LABS: ALB/GLOB RATIO 1.2 (0.9-2); ALKALINE PHOSPHATASE 140 U/L (45-117)
== END | disposition home or self-care (01) ==
LOC: C.LAB 18:24
PROVIDERS: ATTEND Internal Medicine Critical Care Medicine
DX: J45.909 Unspecified asthma, uncomplicated (principal); R91.8 Other nonspecific abnormal finding of lung field

== ENCOUNTER 2017-05-09 10:54 | Day surgery (SDC) | payer BC ==
[2017-05-02 15:23] VITALS: BMI 26.0
[2017-05-04 09:05] VITALS: BMI 26.0
[~2017-05-09] VITALS: Ht 167.6 cm; Wt 72.7 kg
--- NOTE | 2017-05-09 06:58 | History and Physical ---
History & Physical Date May 09, 2017. Chief Complaint Abnormal CT with diffuse bilateral infiltrative changes and mediastinal fullness History of Present Illness The patient is a 57 year old male with complaints of Abnormal CT with diffuse bilateral infiltrative changes and mediastinal fullness: 57-year-old male here for EBUS and flexible bronchoscopy Patient was admitted to the [facility] between April 01 and April 07, 2017 for pneumonia with associated sepsis. He has a PmHx: Significant for transverse myelitis with associated neurological dysfunction. He was initially worked up by myself the hospital and thought to have diffuse inflammation secondary to atypical infection but on reviewing his records it did note a diffuse bilateral infiltrative change seen on a CT angio 08/25/2015. Going further back a CT of the abdomen and pelvis performed 12/07/2014 showed the lower lobes within normal limits. The patient presents today notes he is back to his baseline pulmonary status in no longer requires oxygen supplementation. He currently denies: Fever, chills, productive cough, hemoptysis, pleurisy or classic cardiac chest pain. Serum studies Legionella antigen: not detected Rheumatoid factor: within normal limits CCP: Within normal limits GERARDO screen: Negative Anti proteinase 3: Undetected Anti myeloperoxidase: Detected ANCA: Negative Tox screen: Positive: Opiate, MDMA, alprazolam, benzodiazepine, nor oxycodone, oxycodone, Oxy more phone ProBNP: 2831 Radiology CXR 04/01/2017 compared to 12/09/2016 o RUL infiltrate and LLL with peribronchial cuffing, cephalization o Improvement of the right lower lobe and left lower lobe infiltrate CXR 017 compared to 04/01/2017 o Increased RLL, RUL, left hemithorax opacifications o Lucency in the left lower lobe CTA 04/03/[address] angiogram 11/22/2016 o Mediastinal and hilar adenopathy o Increased Mosaic attenuation greatest in the lower and mid lobe CTA 08/25/2015 o Diffuse bilateral patchy infiltrate CT abdomen pelvis 12/07/2014 o The visualized lung windows within normal limits Cardiac Echo (04/03/17) LV: EF=60-65%, grade 1 diastolic dysfunction RV: WNL Atria: WNL No ASD noted Valves: IVC: Normal sniff variation Previous Work-Up: PFT (05/18/2009) Spirometry: WNL Bronchodilator: No significant response Lung volumes: Within normal limits Diffusion: Within normal limits Interpretation: Normal pulmonary function studies Microbiology: Right arm 03/21/2014: MSSA, Corynebacterium Species, Pasteurella Multocida Right elbow 05/02/2014: Corynebacterium x2 species Urine 12/07/2014: Coag-negative staph penicillin sensitive Urine 04/05/2015: Corynebacterium Urine 08/24/2015: Coag-negative staph (oxacillin resistant) Blood 08/25/2015: Coag-negative staph x1 Urine 10/20/2015: Coag-negative staph (oxacillin resistant) Urine 05/10/2016: Enterococcus faecalis Right knee 06/03/2016: MSSA, Corynebacterium Echocardiogram 08/27/2015 LV: EF=60-65%, RV: TAPSE > 1.5cm Atria: WNL Valves: trace TR [id number] PmHx: 1. ADD (attention deficit disorder) without hyperactivity 2. Anxiety 3. Asthma 4. Benign hypertension 5. Biceps tendon tear 6. Bipolar disorder 7. Cervical radiculopathy at C8 8. Chronic pain 9. Chronic peptic ulcer 10. Depressive disorder 11. Diverticulosis 12. Esophageal reflux 13. Left arm weakness 14. Lesion of brachial plexus 15. Myositis 16. Neurogenic bladder 17. Neuropathy, ulnar nerve 18. Polyneuropathy 19. Prepatellar bursitis 20. Quadriplegia, functional 21. Right leg weakness 22. Sacral radiculopathy 23. Spastic gait 24. Testicular hypofunction 25. Left rotator cuff tendon tear 26. Transverse myelitis Surgical History 1. History of Arthrocentesis Injection Of Subacromial Bursa 2. History of Dental Surgery Family History 1. Family history of Hypertension 2. Family history of Heart Disease 3. Family history of Allergy 4. Family history of kidney disease 5. Family history of Allergy 6. Family history of Heart Disease 7. Family history of Hypertension Social History Current Smoker Denied: History of Drug Use Marital History - Currently Unemployed Current Meds 1. DULoxetine HCl - 60 MG Oral Capsule Delayed Release Particles; TAKE 1 CAPSULE Daily 2. Gabapentin 800 MG Oral Tablet; TAKE 1 TABLET BY MOUTH 4 TIMES A DAY 3. OxyCODONE HCl - 30 MG Oral Tablet; TAKE 1 TABLET 4 TIMES DAILY 4. [id number] 50-325-40 MG Oral Tablet; TAKE 1 TO 2 TABLETS BY MOUTH TWICE A DAY NEEDED 5. Rizatriptan Benzoate 10 MG Oral Tablet Disintegrating; TAKE 1 TABLET AT ONSET OF HEADACHE. MAY REPEAT EVERY 2 HOURS NEEDED. MAXIMUM 3 TABLETS IN 24 HOURS 6. Aspirin Low Dose 81 MG TABS; one tab PO QD 7. BusPIRone HCl - 15 MG Oral Tablet; TAKE 1 TABLET Every twelve hours 8. Tolterodine Tartrate 2 MG Oral Tablet; Take 1 tablet twice daily 9. Adderall 20 MG Oral Tablet; TAKE 1 TABLET Twice daily PRN 10. Arginine 500 MG Oral Tablet; 500-1000 mg PO Q DAY 11. BuPROPion HCl - 100 MG Oral Tablet; TAKE 1 TABLET TWICE DAILY 12. Cialis 5 MG Oral Tablet; TAKE 1 TABLET DAILY 1 HOUR BEFORE NEEDED 13. Cyclobenzaprine HCl - 10 MG Oral Tablet; TAKE 1 TABLET 3 times daily 14. DHEA CAPS; 50mg per day 15. Lomotil TABS; 1 tab PO UD PRN diarrhea 2 tabs at onset 16. Protonix 40 MG Oral Tablet Delayed Release; Take 1 tablet twice daily 17. Remeron 15 MG Oral Tablet; TAKE 1 TABLET AT BEDTIME 18. Testosterone Propionate 3% in petrolatum(compounded at pharmacy); 1 ml every week 19. Vitamin D TABS; TAKE 5000 UNIT Daily Allergies 1. Penicillins 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 (14) Low testosterone (15) MIGRAINE UNSPECIFIED W/O INTRACT MGRN W/O STATUS MIGRAINOSUS (16) Neuropathy (17) Tobacco abuse (18) Urinary retention Surgical Problems: (1) S/P decompression of ulnar nerve at elbow Additional History Hepatic Disease: No Endocrine Disorder: No Kidney Disease: No Hypertension: No Heart Disease: No Bleeding Tendencies: No Infectious Diseases: No Allergies Coded Allergies: Ciprofloxacin (Verified Allergy, Intermediate, RASH, 05/04/17) rash / urticaria proximal to IV site after infusion 04/07/15 Penicillins (Verified Allergy, Intermediate, RASH, 05/04/17) Home Medications Scheduled Aspirin (Aspirin Ec), 81 MG PO QAM Bupropion (Wellbutrin Sr), 200 MG PO BID Buspirone Hcl (Buspirone Hcl), 30 MG PO TID Duloxetine HCl (Duloxetine HCl), 60 MG PO QAM Gabapentin (Gabapentin), 800 MG PO QID Meloxicam (Mobic), 7.5 MG PO BID Mirtazapine Soltab (Remeron Soltab), 30 MG PO HS Pantoprazole (Pantoprazole Sodium), 40 MG PO BID Testosterone Cypionate (Testosterone Cypionate), 100 MG INJ WK Tolterodine Tartrate (Detrol LA), 2 MG PO BID Scheduled PRN Acetamin/Butalbital/Caffeine (Fioricet), 1-2 TABS PO BID PRN for Headache Amphetamine-Dextroamphetamine 20MG (Adderall 20MG), 20 MG PO BID PRN for ADHD Diphenoxylate/Atropine (Lomotil), 1 TAB PO UD PRN for Diarrhea Methocarbamol (Robaxin), 500 MG PO TID PRN for MUSCLE SPASMS Ondansetron Hcl (Zofran), 4 MG PO Q8 PRN for Nausea Oxycodone Hcl (Oxycodone Hcl), 20 MG PO 5XD PRN for Pain Rizatriptan Benzoate (Rizatriptan Benzoate), 10 MG PO UD PRN for Headache Tadalafil (Cialis), 5 MG PO UD PRN for erectile dysfunction Physical Examination Skin: warm/dry, no rash Eyes: normal inspection, EOMI, sclerae normal ENT: normal ENT inspection, pharynx normal Head: normocephalic, atraumatic Neck: supple, no adenopathy, trachea midline Respiratory/Chest: lungs clear, normal breath sounds, no respiratory distress Cardiovascular: regular rate, rhythm, no edema, no murmur Abdomen / GI: normal bowel sounds, non tender Back: normal inspection Extremities: normal inspection, normal range of motion Neurologic/Psych: no motor/sensory deficits, alert, normal reflexes, oriented x [address] with diffuse bilateral infiltrative changes and mediastinal fullness ASA Classification: ASA Class III Plan of Treatment EBUS,Flexible bronchoscopy with TTNA, TBNA, BAL and Tbbx
[~2017-05-09 10:54] MED LIST changes: +ATROPINE SULFATE 0.1 MG/ML 5ML SYR IV PRN; +EpHEDrine SULFATE INJ 50 MG/ML AMP IV PRN; +FENTANYL CITRATE INJ 50 MCG/1 ML 2 ML VIAL IV PRN; +HYDROmorphone INJ 1 MG/ML SYR IV PRN; +LABETALOL HCL IV 5 MG/ML 20ML IV PRN; +LACTATED RINGER'S 1000ML 1,000 ML IV SCH; +MEPERIDINE HCL 25 MG/ML CARP IV PRN; +ONDANSETRON INJ 2 MG/ML 2 ML VIAL IV PRN
[2017-05-09 11:16] VITALS: BP 134/77; PULSE 100; TEMP 37.1; O2SAT 96; Ht 167.6 cm; Wt 72.7 kg
[2017-05-09] MEDS ORDERED: MIDAZOLAM HCL 1 MG/ML 2ML VIAL ONE (12:05)
[2017-05-09] MEDS ORDERED: PROPOFOL IV EMULSION 10 MG/ML 20 ML VIAL IV ONE (12:05)
[2017-05-09] MEDS ORDERED: LIDOCAINE HCL 2% 2 ML VIAL (20MG/ML) ONE (12:05)
[2017-05-09] MEDS ORDERED: ONDANSETRON INJ 2 MG/ML 2 ML VIAL ONE (12:05)
[2017-05-09] MEDS ORDERED: DEXAMETHASONE SOD INJ 4 MG/ML VIAL ONE (12:05)
[2017-05-09] MEDS ORDERED: FENTANYL CITRATE INJ 50 MCG/1 ML 2 ML VIAL ONE (12:05)
--- NOTE | 2017-05-09 12:19 | History & Physical Bridge Note ---
H&P Re-Evaluation Bridge Note: I have examined the patient, reviewed the History & Physical and in the interval since the performance of the History & Physical I have noted the following changes of clinical significance: No changes noted
--- NOTE | 2017-05-09 14:33 | Bronchoscopy Procedure Note ---
Bronchoscopy Procedure Note Procedure: Flexible-Bronchoscopy, EBUS, Tbbx, GETA Consent: Obtained through the patient placed into the chart Pre-Procedural Dx: Diffuse alveolar changes, abnormal CT of the chest, mediastinal adenopathy Post-Procedural Dx: Diffuse alveolar changes, mediastinal adenopathy Analgesia: GETA Sedation: GETA Procedure: The Olympus video bronchoscope and EBUS scope were used for this procedure Initially the flexible bronchoscope was used for evaluation of the airways. The ET tube was notably cm above the level of the lisa. Trachea: Visualized portion of the trachea was anatomically within normal limits Lisa: Anatomically within normal limits Right bronchial tree: Right mainstem bronchus: Anatomically within normal limits Right upper lobe: Anatomically within normal limits Bronchus intermedius: Anatomically within normal limits Right middle lobe: Anatomically within normal limits Right lower lobe: Anatomically within normal limits Findings: No significant findings noted Left bronchial tree: Left mainstem bronchus: Anatomically within normal limits Left upper lobe: Anatomically within normal limits Lingula: Anatomically within normal limits Left lower lobe: Anatomically within normal limits Findings: No significant findings noted EBUS/ANTONI: Tbbx Emily Stations: 7: # of passes 3 4R: # of passes 3 10R: # of passes 3 BAL: Left lower lobe EBL: 2 cc Complications: None Follow-up: [facility]
--- NOTE | 2017-05-09 14:37 | Discharge Instructions ---
Discharge Instructions Date of Service May 09, 2017. Admission Reason for Admission: Abnormal Ct Scan, Asthma Discharge Discharge Diagnosis / Problem: diffuse alveolar changes of mediastinal lymphadenopathy Discharge Goals Goal(s): Diagnostic testing Activity Recommendations Activity Limitations: resume your previous activity . Instructions / Follow-Up Instructions / Follow-Up Follow-up amount [facility] Current Hospital Diet Patient's current hospital diet: Discharge Diet Recommended Diet: Regular Diet Procedures Procedures Performed: Flexible bronchoscopy, Endobronchial Ultrasound Guided Biopsy, Fine needle aspiration, Bronchial/alveolar lavage Pending Studies Studies pending at discharge: no Medical Emergencies . Who to Call and When: Medical Emergencies: If at any time you feel your situation is an emergency, please call 911 immediately. . Non-Emergent Contact Non-Emergency issues call your: Ultrasound Tester . . "Provider Documentation" section prepared by Erik Lim. . VTE Core Measure Inpt VTE Proph given/why not?: Treatment not indicated
--- NOTE | 2017-05-09 15:07 | Anesthesiology Progress Note ---
Anesthesia Post Op Note Date & Time May 09, 2017 at 15:07 Vital Signs Pain Intensity: 0 Vital Signs Past 12 Hours Date Time Temp Pulse Resp B/P (MAP) Pulse Ox O2 Delivery O2 Flow Rate FiO2 05/09/17 15:00 91 16 121/75 96 Oxymask 10 05/09/17 14:50 84 16 123/80 96 Oxymask 10 05/09/17 14:42 36.5 85 16 131/82 96 Oxymask 10 05/09/17 11:16 37.1 100 18 134/77 (96) 96 Room Air Notes Mental Status: alert / awake / arousable, participated in evaluation Pt Amnestic to Procedure: Yes Nausea / Vomiting: adequately controlled Pain: adequately controlled Airway Patency, RR, SpO2: stable & adequate BP & HR: stable & adequate Hydration State: stable & adequate Anesthetic Complications: no major complications apparent
[2017-05-09 15:25] VITALS: BP 113/70; PULSE 87; TEMP 37.2; O2SAT 93; O2SAT 98
[2017-05-09 15:55] VITALS: BP 131/77; PULSE 85; TEMP 37.3; O2SAT 97
[2017-05-09 16:25] VITALS: BP 138/74; PULSE 85; TEMP 37.2; O2SAT 97
== END 2017-05-09 16:53 | disposition home or self-care (01) ==
LOC: C.ACU 10:54
PROVIDERS: ATTEND Internal Medicine Critical Care Medicine
DX: R59.0 Localized enlarged lymph nodes (principal); R94.2 Abnormal results of pulmonary function studies; J45.909 Unspecified asthma, uncomplicated; I10 Essential (primary) hypertension; K21.9 Gastro-esophageal reflux disease without esophagitis; F17.200 Nicotine dependence, unspecified, uncomplicated; M60.9 Myositis, unspecified; G82.50 Quadriplegia, unspecified; G37.3 Acute transverse myelitis in demyelinating disease of central nervous system; F90.9 Attention-deficit hyperactivity disorder, unspecified type; F31.9 Bipolar disorder, unspecified; N31.9 Neuromuscular dysfunction of bladder, unspecified; G62.9 Polyneuropathy, unspecified; Z87.01 Personal history of pneumonia (recurrent); Z82.49 Family history of ischemic heart disease and other diseases of the circulatory system; Z84.1 Family history of disorders of kidney and ureter

== ENCOUNTER 2017-06-24 01:43 | Emergency (ER) | payer BC ==
[~2017-06-24] VITALS: Ht 167.6 cm; Wt 81.5 kg
[~2017-06-24 01:43] MED LIST changes: -ATROPINE SULFATE 0.1 MG/ML 5ML SYR IV PRN; -EpHEDrine SULFATE INJ 50 MG/ML AMP IV PRN; -FENTANYL CITRATE INJ 50 MCG/1 ML 2 ML VIAL IV PRN; -HYDROmorphone INJ 1 MG/ML SYR IV PRN; -LABETALOL HCL IV 5 MG/ML 20ML IV PRN; -LACTATED RINGER'S 1000ML 1,000 ML IV SCH; -MEPERIDINE HCL 25 MG/ML CARP IV PRN; -ONDANSETRON INJ 2 MG/ML 2 ML VIAL IV PRN; +PANT40TA2 PO; -PRT/40 PO
[2017-06-24 01:51] VITALS: TEMP 37.3; Ht 167.6 cm; Wt 81.5 kg
[2017-06-24] MEDS ORDERED: SULF800T23 PO (02:17)
[2017-06-24] MEDS ORDERED: ALPR1TAB3 PO (02:17)
--- NOTE | 2017-06-24 05:27 | EMERGENCY ROOM VISIT NOTE ---
History First contact with patient: 02:29 Chief Complaint: FALL Stated Complaint: FELL DOWN CONCRETE STEPS,RT SHOULDER,CATHETER History of Present Illness The patient is a 57 year old male who presents to the Emergency Room with complaints of right shoulder pain after a fall. The patient states that he tripped and fell down a few steps this evening. He states that he landed onto his right shoulder. He reports pain from his right shoulder radiating down the arm. He believes he may have bumped his head, but denies any headache or neck pain. He does not take any anticoagulants. The patient denies any other injuries. He does report he has had some leg weakness recently but this has resolved. He attributes this to taking Flexeril, as when he stopped taking this his leg weakness resolved. The patient states that he self catheterizes and he had difficulty cathing himself tonight. He denies any other urinary symptoms. Review of Systems A complete 10 point review of systems was reviewed with the patient with pertinent positives and negatives as per history of present illness. All else were negative. 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 (14) Low testosterone (15) MIGRAINE UNSPECIFIED W/O INTRACT MGRN W/O STATUS MIGRAINOSUS (16) Neuropathy (17) Tobacco abuse (18) Urinary retention Surgical Problems: (1) S/P decompression of ulnar nerve at elbow Family History Anxiety disorder MOTHER Cancer Diabetes mellitus MOTHER FH: CAD (coronary artery disease) FATHER BROTHER FH: CHF (congestive heart failure) FATHER FH: HTN (hypertension) FH: dementia FATHER FH: diabetes mellitus FH: kidney failure Heart disease Hypertension MOTHER Kidney disease SISTER Social History Smoking Status: Current Every Day Smoker Alcohol Use: none Drug Use: none Marital Status: Housing Status: lives with significant other Occupation Status: disabled Current/Historical Medications Scheduled Aspirin (Aspirin Ec), 81 MG PO QAM Bupropion (Wellbutrin Sr), 200 MG PO BID Buspirone Hcl (Buspirone Hcl), 30 MG PO TID Duloxetine HCl (Duloxetine HCl), 60 MG PO QAM Gabapentin (Gabapentin), 800 MG PO QID Meloxicam (Mobic), 7.5 MG PO BID Mirtazapine Soltab (Remeron Soltab), 30 MG PO HS Pantoprazole (Pantoprazole Sodium), 40 MG PO BID Sulfa/Trimethoprim (Bactrim Ds 800MG/160MG), 1 TAB PO BID Testosterone Cypionate (Testosterone Cypionate), 100 MG INJ WK Tolterodine Tartrate (Detrol LA), 2 MG PO BID Scheduled PRN Acetamin/Butalbital/Caffeine (Fioricet), 1-2 TABS PO BID PRN for Headache Alprazolam (Xanax), 1 MG PO TID PRN for Anxiety/Agitation Amphetamine-Dextroamphetamine 20MG (Adderall 20MG), 20 MG PO BID PRN for ADHD Diphenoxylate/Atropine (Lomotil), 1 TAB PO UD PRN for Diarrhea Ondansetron Hcl (Zofran), 4 MG PO Q8 PRN for Nausea Rizatriptan Benzoate (Rizatriptan Benzoate), 10 MG PO UD PRN for Headache Tadalafil (Cialis), 5 MG PO UD PRN for erectile dysfunction Physical Exam Vital Signs Date Time Temp Pulse Resp B/P (MAP) Pulse Ox O2 Delivery O2 Flow Rate FiO2 06/24/17 05:58 94 18 136/81 95 06/24/17 01:51 37.3 119 20 145/81 95 Room Air Physical Exam VITALS: Vitals are noted on the nurse's note and reviewed by myself. Vital signs stable. GENERAL: This is a 57-year-old male, in no acute distress, nondiaphoretic, well- developed well-nourished. SKIN: The skin was without erythema, edema, or bruising. HEAD: Normocephalic atraumatic. EARS: External auditory canals clear, tympanic membranes pearly chandler without erythema or effusion bilaterally. EYES: Pupils equal round and reactive to light and accommodation. Extraocular movements intact. MOUTH: Mucous membranes moist. NECK: Supple without nuchal rigidity. Cervical spine is nontender. HEART: Regular rate and rhythm without murmurs gallops or rubs. LUNGS: Clear to auscultation bilaterally without wheezes, rales or rhonchi. MUSCULOSKELETAL: Patient has no significant tenderness to the right shoulder, however does report pain with active and passive range of motion. Limited active range of motion of the shoulder. No deformities noted. There is also mild tenderness of the distal right forearm and right thumb. Netsuite Developer strength 5/5. NEURO: Patient was alert and oriented to person place and time. Normal sensation to light and sharp touch. Medical Decision & Procedures ER Provider Diagnostic Interpretation: RIGHT SHOULDER: Arthritis without acute fracture or dislocation. RIGHT FOREARM: No acute fractures or dislocations. FINGER: No fracture or dislocation. Medical Decision Differential diagnosis includes fracture, contusion, dislocation, among others. The patient was evaluated as above. He had a mechanical fall this morning. He complains of right shoulder and forearm pain. X-rays were reviewed by myself and do not show any acute fractures or dislocations. Bladder scan was performed , however patient refused catheterization here and prefers to cath himself. He was advised to follow up with his PCP. He verbalized understanding of my assessment and treatment plan and was discharged home in good condition. Medication Reconcilliation Current Medication List: was personally reviewed by me Blood Pressure Screening Patient's blood pressure: Elevated blood pressure Blood pressure disposition: Elevated BP felt to be situational Impression Primary Impression: Fall Additional Impression: Contusion of multiple sites Departure Information Dispostion Home / Self-Care Condition GOOD Referrals Darren Flores M.D. (PCP) Patient Instructions My [facility] Additional Instructions For pain control, you can use the following [id number] medicines (if >12 yo): - Regular strength (325mg/tab) Tylenol (acetaminophen) 2 tabs every 4-6 hours as needed. Do not exceed 12 tablets in a 24 hour period. Avoid taking more than 4 grams (4000 mg) of Tylenol per day. This includes any other sources of acetaminophen you may take on a regular basis. - Regular strength (200 mg/tab) Advil (ibuprofen) 1-2 tabs every 4-6 hours as needed. Do not exceed a dose of 3200 mg per day. Follow-up with your primary care provider and orthopedist this week for further evaluation. Return to the emergency department with any worsening or new/concerning symptoms. Problem Qualifiers Primary Impression: Fall Encounter type: initial encounter Qualified Codes: W19.XXXA - Unspecified fall, initial encounter
[2017-06-24 05:58] VITALS: BP 136/81; PULSE 94; O2SAT 95
--- NOTE | 2017-06-24 09:52 | DIAGNOSTIC IMAGING REPORT ---
R SHOULDER MIN 2 VIEWS ROUTINE CLINICAL HISTORY: Right shoulder pain following fall. COMPARISON: Right shoulder radiographs November 01, 2014. FINDINGS: Alignment of the right shoulder is anatomic. No acute fracture is identified. An elliptical 2.6 cm ossific/calcific density along the medial proximal shaft of the right humerus is unchanged since exam of November 01, 2014. Mild to moderate osteoarthritis of the acromioclavicular and glenohumeral joints is noted. IMPRESSION: 1. No acute fracture or dislocation of the right shoulder. 2. Mild to moderate osteoarthritis of the right acromioclavicular and glenohumeral joints. Electronically signed by: Brian Zepeda M.D. 06/24/2017 9:51 AM Dictated Date/Time: 06/24/2017 9:49 AM
--- NOTE | 2017-06-24 09:54 | DIAGNOSTIC IMAGING REPORT ---
R FOREARM 2 VIEWS ROUTINE CLINICAL HISTORY: Right arm pain following fall to COMPARISON: Right forearm radiographs July 20, 2015. FINDINGS: A tiny ossific density along the ulnar styloid is unchanged since exam of July 20, 2015. There is no acute fracture of the right radius or ulna. IMPRESSION: No acute fracture of the right radius or ulna. Electronically signed by: Brian Zepeda M.D. 06/24/2017 9:52 AM Dictated Date/Time: 06/24/2017 9:51 AM
--- NOTE | 2017-06-24 10:00 | DIAGNOSTIC IMAGING REPORT ---
R HAND MIN 3 VIEWS ROUTINE CLINICAL HISTORY: Right hand pain following fall. COMPARISON: Right hand radiographs July 20, 2015. FINDINGS: Evaluation was somewhat difficult due to difficulty positioning. However, no acute fracture is identified. A tiny ossific density along the ulnar styloid is unchanged. IMPRESSION: No acute fracture or dislocation within the right hand. Electronically signed by: Brian Zepeda M.D. 06/24/2017 9:59 AM Dictated Date/Time: 06/24/2017 9:58 AM
== END 2017-06-24 06:05 | disposition home or self-care (01) ==
LOC: C.EDB 01:45
DX: T14.8XXA Other injury of unspecified body region, initial encounter (principal); W10.9XXA Fall (on) (from) unspecified stairs and steps, initial encounter; W22.8XXA Striking against or struck by other objects, initial encounter; J45.909 Unspecified asthma, uncomplicated; I10 Essential (primary) hypertension; F32.9 Major depressive disorder, single episode, unspecified; F41.9 Anxiety disorder, unspecified; K21.9 Gastro-esophageal reflux disease without esophagitis; F17.200 Nicotine dependence, unspecified, uncomplicated; Z87.01 Personal history of pneumonia (recurrent); Z98.890 Other specified postprocedural states; Z81.8 Family history of other mental and behavioral disorders; Z83.3 Family history of diabetes mellitus; Z82.49 Family history of ischemic heart disease and other diseases of the circulatory system; Z79.82 Long term (current) use of aspirin; Z79.899 Other long term (current) drug therapy

== ENCOUNTER 2017-07-27 20:14 | Emergency (ER) | payer BC ==
[~2017-07-27] VITALS: Ht 167.6 cm; Wt 82.3 kg
[~2017-07-27 20:14] MED LIST changes: -AMPH20TA2 PO; -ASPI81TA28 PO; -BUPR200T2 PO; -BUSP30TA2 PO; -DIPH-416 PO; -DTRSR/2 PO; -DULO1CAP40 PO; -FRCT/ PO; -METH500T37 PO; -NRN800 PO; -ONDA4TAB46 PO; -OXYC20TA32 PO; -PANT40TA2 PO; -RIZA1TAB11 PO; +SULF800T23 PO; -TADA5TAB11 PO; -TEST1INJ2 INJ
[2017-07-27 20:17] VITALS: TEMP 36.8; Ht 167.6 cm; Wt 82.3 kg
--- NOTE | 2017-07-27 20:43 | EMERGENCY ROOM VISIT NOTE ---
ED Visit Note First contact with patient: 20:26 Chief Complaint: Right thumb Laceration History of Present Illness: This patient is a 57-year-old male who presents to the Emergency Department for evaluation of their right thumb laceration. Patient sustained the laceration while sharpening a knife, states he slipped and caught the top of his thumb. They report a moderate amount of bleeding initially. They deny any numbness or tingling into the distal extremity. They report no decreased range of motion of the affected digit. They have tried nothing for the pain. Patient rates his current discomfort as a 3/10. Patient denies any other injury. Patient's Tetanus status is currently up-to-date. He is right-hand dominant Medications: Reviewed in chart Allergies: Reviewed in chart PMH: Reviewed in chart SHx: Lives at home. Current every day smoker. ROS: All pertinent positive and negative review of systems are appropriately documented in the History of Present Illness. Physical Exam: VITAL SIGNS - Vital signs and nursing notes were reviewed. GENERAL - Pleasant and cooperative, in no acute distress. Communicates well with provider and answers questions appropriately. SKIN - There is a 1 cm long laceration noted on the dorsal aspect of the right thumb, superficial. The edges do not gape apart with traction. No foreign bodies appreciated. Upon further examination there are no deep structures including vessel, tendon, or bony structures appreciated. There is no active bleeding noted. MUSCULOSKELETAL - Laceration as described above. +5/5 strength appreciated of the affected digit. Full range of motion of the affected digit. NEUROLOGIC - No sensory defects of the right thumb were appreciated utilizing light touch for evaluation. VASCULAR - Capillary refill was brisk. ED Course: I examined the patient. Verbal consent was obtained to perform the procedure. The right thumb laceration was copiously irrigated with sterile saline, and cleaned with Betadine and sterile saline. There was no bleeding. The edges of the laceration were approximated and secured with 3 layers of Dermabond glue with good wound approximation. The patient tolerated the procedure well. The patient was placed in a metal splint for immobilization and comfort, neurovascularly intact after splint placement. The patient was instructed wound care, as well as worrisome symptoms for follow up/return precautions, he verbalized understanding. The patient was discharged home in stable condition and ambulatory. Problem List Medical Problems: (1) Anemia Status: Chronic (2) ANXIETY STATE NOS Status: Chronic (3) Asthma Status: Chronic (4) BENIGN HYPERTENSION Status: Chronic (5) BIPOLAR DISORDER, UNSPECIFIED Status: Chronic (6) Chronic back pain Status: Chronic (7) Chronic low back pain Status: Chronic (8) CHRONIC PEPTIC ULCER NOS Status: Chronic (9) DEPRESSIVE DISORDER NEC Status: Chronic (10) DIVERTICULOSIS COLON (W/O MENT OF HEMORRHAGE) Status: Chronic (11) ESOPHAGEAL REFLUX Status: Chronic (12) IDIOPATHIC TRANSVERSE MYELITIS Status: Chronic (13) Low testosterone Status: Chronic (14) MIGRAINE UNSPECIFIED W/O INTRACT MGRN W/O STATUS MIGRAINOSUS Status: Chronic (15) Neuropathy Status: Chronic (16) Tobacco abuse Status: Chronic (17) Urinary retention Status: Chronic Surgical Problems: (1) S/P decompression of ulnar nerve at elbow Status: Resolved Current/Historical Medications Scheduled Aripiprazole (Abilify), 5 MG PO DAILY Aspirin (Aspirin Ec), 81 MG PO QAM Bupropion (Wellbutrin Sr), 200 MG PO BID Buspirone Hcl (Buspirone Hcl), 30 MG PO TID Duloxetine HCl (Duloxetine HCl), 60 MG PO QAM Gabapentin (Gabapentin), 800 MG PO QID Meloxicam (Mobic), 7.5 MG PO BID Mirtazapine Soltab (Remeron Soltab), 30 MG PO HS Pantoprazole (Pantoprazole Sodium), 40 MG PO BID Sucralfate (Carafate), 1 GM PO QID Testosterone Cypionate (Testosterone Cypionate), 100 MG INJ WK Tolterodine Tartrate (Detrol LA), 2 MG PO BID Scheduled PRN Acetamin/Butalbital/Caffeine (Fioricet), 1-2 TABS PO BID PRN for Headache Alprazolam (Xanax), 1 MG PO TID PRN for Anxiety/Agitation Amphetamine-Dextroamphetamine 20MG (Adderall 20MG), 20 MG PO BID PRN for ADHD Gbzlqkb-Kcumzibdsmvbb-Dpeyqwvk (Excedrin Migraine), 2 TAB PO DAILY PRN for Migraine Diphenoxylate/Atropine (Lomotil), 1 TAB PO UD PRN for Diarrhea Ibuprofen (Advil), 800 MG PO TID PRN for Pain or Fever Ondansetron Hcl (Zofran), 4 MG PO Q8 PRN for Nausea Rizatriptan Benzoate (Rizatriptan Benzoate), 10 MG PO UD PRN for Headache Tadalafil (Cialis), 5 MG PO UD PRN for erectile dysfunction Allergies Coded Allergies: Ciprofloxacin (Verified Allergy, Intermediate, RASH, 07/27/17) rash / urticaria proximal to IV site after infusion 04/07/15 Penicillins (Verified Allergy, Intermediate, RASH, 07/27/17) Vital Signs Date Time Temp Pulse Resp B/P (MAP) Pulse Ox O2 Delivery O2 Flow Rate FiO2 07/27/17 22:00 97 16 141/82 98 07/27/17 20:17 36.8 95 18 163/92 99 Room Air Departure Information Impression Primary Impression: Laceration of right thumb Dispostion Home / Self-Care Condition GOOD Referrals Darren Flores M.D. (PCP) Patient Instructions ED Laceration Ext Skin Glue, ED Laceration Hand, [facility] Additional Instructions Keep the wound clean and dry. Do not apply lotion or ointment over the glue, as this may cause it to dissolve too early. The glue should fall off naturally in 5-7 days as the wound heals. Please wear the splint for comfort until the wound is fully healed (in about a week). You may take Ibuprofen 600 mg and/or Tylenol 1000 mg every 8 hours as needed for pain. As with any laceration you may have received nerve damage to the surrounding tissues. This damage may or may not be permanent. Please follow up with your primary care provider in the next week for follow up. Look for signs of infection of the wound including: increased pain, swelling, foul discharge, streaking, or increased temperature. If any of these are noticed you should return to the Emergency Department for further assessment and treatment. Work Instructions Return To Work: 1 day Problem Qualifiers Primary Impression: Laceration of right thumb Encounter type: initial encounter Damage to nail status: without damage Foreign body presence: without foreign body Qualified Codes: S61.011A - Laceration without foreign body of right thumb without damage to nail, initial encounter
[2017-07-27] MEDS ORDERED: LIDOCAINE 1% BUFFERED INJ 20 ML VIAL INFIL ONE (20:45)
[2017-07-27] MEDS ORDERED: SUCR1TAB29 PO (20:50)
[2017-07-27 22:00] VITALS: BP 141/82; PULSE 97; O2SAT 98
[2017-11-16] MEDS ORDERED: BUSP30TA2 PO (01:50)
[2017-11-16] MEDS ORDERED: ALPR1TAB3 PO (02:17)
[2017-11-16] MEDS ORDERED: BUPR200T2 PO (04:06)
[2017-11-16] MEDS ORDERED: TADA5TAB11 PO (06:21)
[2017-11-16] MEDS ORDERED: DTRSR/2 PO (06:25)
[2018-01-05] MEDS ORDERED: NITR-5 PO (13:13)
[2018-01-27] MEDS ORDERED: OXYC-57 PO (09:04)
== END 2017-07-27 22:02 | disposition home or self-care (01) ==
LOC: C.EDB 20:15 → C.EDD 22:02
DX: S61.011A Laceration without foreign body of right thumb without damage to nail, initial encounter (principal); W26.0XXA Contact with knife, initial encounter; D64.9 Anemia, unspecified; F41.9 Anxiety disorder, unspecified; J45.909 Unspecified asthma, uncomplicated; I10 Essential (primary) hypertension; F32.9 Major depressive disorder, single episode, unspecified; K57.90 Diverticulosis of intestine, part unspecified, without perforation or abscess without bleeding; K21.9 Gastro-esophageal reflux disease without esophagitis; Z79.82 Long term (current) use of aspirin

== ENCOUNTER → 2017-08-08 | Outpatient (CLI) | payer BC ==
[~2017-08-08] MED LIST changes: +ABL/5 PO; +ALPR1TAB3 PO; +AMPH20TA2 PO; +ASPI-390 PO; +ASPI81TA28 PO; +BUPR200T2 PO; +BUSP30TA2 PO; +DIPH-416 PO; +DTRSR/2 PO; +DULO1CAP40 PO; +FRCT/ PO; +IBUP-1050 PO; +NRN800 PO; +ONDA4TAB46 PO; +PANT40TA2 PO; +RIZA1TAB11 PO; +SUCR1TAB29 PO; -SULF800T23 PO; +TADA5TAB11 PO; +TEST1INJ2 INJ
--- NOTE | 2017-08-08 15:33 | DIAGNOSTIC IMAGING REPORT ---
(CHEST) THORAX WITHOUT CT DOSE: 378.95 mGy.cm HISTORY: Dyspnea R91.8 Nonspecific abnormal findings on radiological and other ex TECHNIQUE: Multiaxial CT images of the chest were performed without contrast. A dose lowering technique was utilized adhering to the principles of ALARA. COMPARISON: Chest series 04/26/2017 CT chest 04/03/2017 FINDINGS: Study is acquired with patient in the prone as well as supine position. Lungs currently are considered clear. The interstitial changes described previously. However as well. Minimal basilar dependent atelectatic changes present. There are no focal infiltrative changes. There is no significant hilar or mediastinal adenopathy of significance. Minimal apical fibrotic change. IMPRESSION: 1. Improved exam with the lungs now considered clear. 2. Minimal dependent basilar atelectatic change with minimal apical chronic fibrotic change. 3. Interstitial changes described previously have resolved. 4. No evidence currently for significant mediastinal or hilar adenopathy. The above report was generated using voice recognition software. It may contain grammatical, syntax or spelling errors. Electronically signed by: Augustin Peres M.D. 08/08/2017 3:32 PM Dictated Date/Time: 08/08/2017 3:28 PM
== END | disposition home or self-care (01) ==
LOC: C.CTS 15:00
PROVIDERS: ATTEND Internal Medicine Critical Care Medicine
DX: R91.8 Other nonspecific abnormal finding of lung field (principal)

== ENCOUNTER → 2017-08-22 | Outpatient (CLI) | payer BC | END | disposition home or self-care (01) | LOC: C.LAB1850 14:13 | PROVIDERS: ATTEND Urology | DX: N40.0 Benign prostatic hyperplasia without lower urinary tract symptoms (principal) ==

== ENCOUNTER 2017-11-16 14:42 | Emergency (ER) | payer BC ==
[~2017-11-16] VITALS: Ht 170.2 cm; Wt 86.6 kg
[~2017-11-16 14:42] MED LIST changes: -ABL/5 PO; -AMPH20TA2 PO; -ASPI-390 PO; -ASPI81TA28 PO; -DIPH-416 PO; -DULO1CAP40 PO; -FRCT/ PO; -IBUP-1050 PO; -NRN800 PO; -ONDA4TAB46 PO; -PANT40TA2 PO; -RIZA1TAB11 PO; -TEST1INJ2 INJ
[2017-11-16 14:50] VITALS: TEMP 36.6; Ht 170.2 cm; Wt 86.6 kg
[2017-11-16] MEDS ORDERED: FRCT/ PO (15:46)
[2017-11-16] MEDS ORDERED: AMPH20TA2 PO (15:58)
[2017-11-16] MEDS ORDERED: SODIUM CHLORIDE 0.9% 1000ML 1,000 ML IV STA (16:46)
[2017-11-16] MEDS ORDERED: DULO1CAP40 PO (17:05)
[2017-11-16] MEDS ORDERED: NRN800 PO (17:16)
[2017-11-16] MEDS ORDERED: PANT40TA2 PO (17:21)
[2017-11-16] MEDS ORDERED: VALA1TAB31 PO (17:35)
[2017-11-16] MEDS ORDERED: MELO-83 PO (17:35)
[2017-11-16 17:59] LABS: BASO % 0.5 %; BASO ABS # 0.04 K/uL (0-0.2); EOS % 3.1 %; EOS ABS # 0.26 K/uL (0-0.5); HEMATOCRIT 35.7 % (42-52); HEMOGLOBIN 11.3 g/dL (14.0-18.0); IG# 0.02 K/uL (0.00-0.02); LYMPH % 24.7 %; LYMPH ABS # 2.06 K/uL (1.2-3.4); MEAN CELL VOLUME 79.7 fL (80-100); MEAN CORPUSCULAR HEMOGLOBIN 25.2 pg (25-34); MEAN CORPUSCULAR HGB CONC 31.7 g/dl (32-36); MEAN PLATELET VOLUME 9.9 fL (7.4-10.4); MONO % 7.8 %; MONO ABS # 0.65 K/uL (0.11-0.59); NEUT % 63.7 %; NEUT ABS # 5.32 K/uL (1.4-6.5); PLATELET COUNT 302 K/uL (130-400); RED CELL DISTRIBUTION WIDTH CV 18.8 % (11.5-14.5); RED CELL DISTRIBUTION WIDTH SD 54.6 fL (36.4-46.3); WHITE BLOOD COUNT 8.35 K/uL (4.8-10.8)
[2017-11-16 18:17] LABS: AST/SGOT 25 U/L (15-37); BLOOD UREA NITROGEN 20 mg/dl (7-18); CALCIUM 8.8 mg/dl (8.5-10.1); CARBON DIOXIDE 25 mmol/L (21-32); CREATININE 1.32 mg/dl (0.60-1.40); GLUCOSE 92 mg/dl (70-99); LIPASE 136 U/L (73-393); POTASSIUM 3.9 mmol/L (3.5-5.1); SODIUM 137 mmol/L (136-145)
[2017-11-16 18:20] LABS: ALKALINE PHOSPHATASE 83 U/L (45-117); ALT/SGPT 35 U/L (12-78); TOTAL PROTEIN 7.1 gm/dl (6.4-8.2)
--- NOTE | 2017-11-16 19:25 | DIAGNOSTIC IMAGING REPORT ---
(RENAL)RETROPERITON COMP HISTORY: 57 years-old Male hematuria acute hematuria COMPARISON: CT abdomen and pelvis 01/09/2017 TECHNIQUE: Multiple real-time sonographic images of the kidneys and urinary bladder were obtained assessing grayscale appearance and color flow FINDINGS: The right kidney measures 10.9 x 5.8 x 5.8 cm and is unremarkable without renal calculi, hydronephrosis or focal renal mass lesions. Left kidney measures 11.4 x 5.7 x 6.0 cm and is also unremarkable without hydronephrosis, renal calculi or focal renal mass lesions. Urinary bladder is mostly decompressed with ureteral jets not identified. IMPRESSION: 1. Unremarkable sonographic appearance of the bilateral kidneys without renal calculi or hydronephrosis. 2. Decompressed urinary bladder lumen. The above report was generated using voice recognition software. It may contain grammatical, syntax or spelling errors. Electronically signed by: Alfie Petty M.D. 11/16/2017 7:24 PM Dictated Date/Time: 11/16/2017 7:22 PM
[2017-11-16] MEDS ORDERED: SULFAMETHOXAZOLE/TRIMETHOPRIM DS 800/160MG TAB PO STA (19:32)
[2017-11-16] MEDS ORDERED: SULF800T23 PO (19:34)
[2017-11-16 19:40] VITALS: BP 125/78; PULSE 71; O2SAT 95
[2017-11-16] MEDS ORDERED: ASPI-390 PO (20:42)
[2017-11-16] MEDS ORDERED: ABL/5 PO (20:48)
[2017-11-16] MEDS ORDERED: IBUP-1050 PO (20:52)
[2017-11-16] MEDS ORDERED: DIPH-416 PO (21:27)
--- NOTE | 2017-11-16 21:54 | EMERGENCY ROOM VISIT NOTE ---
History Report prepared by Brendan: Celso Manzo Under the Supervision of: Dr. Vincent Fowler D.O. First contact with patient: 16:39 Chief Complaint: HEMATURIA Stated Complaint: BLOOD IN URINE, A LOT Nursing Triage Summary: Pt ambulatory to triage with cane for eval of hematuria that started last night. Denies pain. Reports dark blood. Pt states self-cath. Pt states, "I think it started because I have the catheter with the bent tip. It's happened before, but never this bad." History of Present Illness The patient is a 57 year old male who presents to the Emergency Room with complaints of blood in his urine that he first noticed last night. The patient states that he has to self-catheter at baseline, secondary to a spinal injury. The patient denies any penile pain, but does feel some "pressure" and "irritation" in his bladder. The patient notes that he has had the catheter go in "sideways" in the past which has caused hematuria, but he has never had this much "dark red" blood. He is not on any blood thinners. He denies headache, change in vision, fevers, chest pain, shortness of breath, nausea, vomiting, diarrhea, and melena. Source of History: patient Onset: Last night Position: other (Genitourinary) Quality: other (Hematuria) Timing: other (Hematuria with intermittent catheterization) Associated Symptoms: + urinary symptoms, No chest pain, No SOB, No nausea Note: No penile pain. Review of Systems See HPI for pertinent positives & negatives. A total of 10 systems reviewed and were otherwise negative. 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 (14) Low testosterone (15) MIGRAINE UNSPECIFIED W/O INTRACT MGRN W/O STATUS MIGRAINOSUS (16) Neuropathy (17) Tobacco abuse (18) Urinary retention Surgical Problems: (1) S/P decompression of ulnar nerve at elbow Family History Anxiety disorder MOTHER Cancer Diabetes mellitus MOTHER FH: CAD (coronary artery disease) FATHER BROTHER FH: CHF (congestive heart failure) FATHER FH: HTN (hypertension) FH: dementia FATHER FH: diabetes mellitus FH: kidney failure Heart disease Hypertension MOTHER Kidney disease SISTER Social History Smoking Status: Current Every Day Smoker Alcohol Use: none Drug Use: none Marital Status: Housing Status: lives with significant other Occupation Status: disabled Current/Historical Medications Scheduled Aripiprazole (Abilify), 5 MG PO DAILY Aspirin (Aspirin Ec), 81 MG PO QAM Bupropion (Wellbutrin Sr), 200 MG PO BID Buspirone Hcl (Buspirone Hcl), 30 MG PO TID Duloxetine HCl (Duloxetine HCl), 60 MG PO QAM Gabapentin (Gabapentin), 800 MG PO QID Meloxicam (Meloxicam), 15 MG PO DAILY Pantoprazole (Pantoprazole Sodium), 40 MG PO BID Sulfa/Trimethoprim (Bactrim Ds 800MG/160MG), 1 TAB PO BID Testosterone Cypionate (Testosterone Cypionate), 100 MG INJ WK Tolterodine Tartrate (Detrol LA), 2 MG PO BID Valacyclovir Hcl (Valtrex), 1 TAB PO TID Scheduled PRN Acetamin/Butalbital/Caffeine (Fioricet), 1-2 TABS PO BID PRN for Headache Alprazolam (Xanax), 1 MG PO TID PRN for Anxiety/Agitation Amphetamine-Dextroamphetamine 20MG (Adderall 20MG), 20 MG PO BID PRN for ADHD Qzawfht-Zguwqrknpqbge-Exkglyhk (Excedrin Migraine), 2 TAB PO DAILY PRN for Migraine Diphenoxylate/Atropine (Lomotil), 1 TAB PO UD PRN for Diarrhea Ibuprofen (Advil), 800 MG PO TID PRN for Pain or Fever Ondansetron Hcl (Zofran), 4 MG PO Q8 PRN for Nausea Rizatriptan Benzoate (Rizatriptan Benzoate), 10 MG PO UD PRN for Headache Tadalafil (Cialis), 5 MG PO UD PRN for erectile dysfunction Allergies Coded Allergies: Ciprofloxacin (Verified Allergy, Intermediate, RASH, 07/27/17) rash / urticaria proximal to IV site after infusion 04/07/15 Penicillins (Verified Allergy, Intermediate, RASH, 07/27/17) Physical Exam Vital Signs Date Time Temp Pulse Resp B/P (MAP) Pulse Ox O2 Delivery O2 Flow Rate FiO2 11/16/17 19:40 71 18 125/78 95 Room Air 11/16/17 18:09 76 20 117/71 98 Room Air 11/16/17 16:39 89 16 97/61 95 Room Air 11/16/17 14:50 36.6 88 18 144/87 96 Room Air Physical Exam GENERAL: Sitting up in bed, alert, well appearing, well nourished, no distress, non-toxic EYE EXAM: normal conjunctiva. OROPHARYNX: no exudate, no erythema, lips, buccal mucosa, and tongue normal and mucous membranes are moist NECK: supple, no nuchal rigidity, no adenopathy, non-tender LUNGS: Clear to auscultation. Normal chest wall mechanics HEART: no murmurs, S1 normal and S2 normal ABDOMEN: abdomen soft, non-tender, normo-active bowel sounds, no masses, no rebound or guarding. BACK: Back is symmetrical on inspection and there is no deformity, no midline tenderness, no CVA tenderness. SKIN: no rashes and no bruising UPPER EXTREMITIES: upper extremities are grossly normal. LOWER EXTREMITIES: No pitting edema. NEURO EXAM: Normal sensorium, cranial nerves II-XII grossly intact, normal speech, no gross weakness of arms. Medical Decision & Procedures ER Provider Diagnostic Interpretation: Radiology results as stated below per my review and the radiologist's interpretation: (RENAL)RETROPERITON COMP HISTORY: 57 years-old Male hematuria acute hematuria COMPARISON: CT abdomen and pelvis 01/09/2017 TECHNIQUE: Multiple real-time sonographic images of the kidneys and urinary bladder were obtained assessing grayscale appearance and color flow FINDINGS: The right kidney measures 10.9 x 5.8 x 5.8 cm and is unremarkable without renal calculi, hydronephrosis or focal renal mass lesions. Left kidney measures 11.4 x 5.7 x 6.0 cm and is also unremarkable without hydronephrosis, renal calculi or focal renal mass lesions. Urinary bladder is mostly decompressed with ureteral jets not identified. IMPRESSION: 1. Unremarkable sonographic appearance of the bilateral kidneys without renal calculi or hydronephrosis. 2. Decompressed urinary bladder lumen. The above report was generated using voice recognition software. It may contain grammatical, syntax or spelling errors. Electronically signed by: Alfie Petty M.D. 11/16/2017 7:24 PM Dictated Date/Time: 11/16/2017 7:22 PM Laboratory Results 11/16/17 17:40 Red Blood Count 4.48, Mean Corpuscular Volume 79.7, Mean Corpuscular Hemoglobin 25.2, Mean Corpuscular Hemoglobin Concent 31.7, Mean Platelet Volume 9.9, Neutrophils (%) (Auto) 63.7, Lymphocytes (%) (Auto) 24.7, Monocytes (%) (Auto) 7.8, Eosinophils (%) (Auto) 3.1, Basophils (%) (Auto) 0.5, Neutrophils # (Auto) 5.32, Lymphocytes # (Auto) 2.06, Monocytes # (Auto) 0.65, Eosinophils # (Auto) 0.26, Basophils # (Auto) 0.04 11/16/17 17:40 Test 11/16/17 17:15 11/16/17 17:40 Urine Color BROWN Urine Appearance CLOUDY (CLEAR) Urine pH (4.5-7.5) Urine Specific Rock 1.034 (1.000-1.030) Urine Protein (NEG) Urine Glucose (UA) (NEG) Urine Ketones (NEG) Urine Occult Blood (NEG) Urine Nitrite (NEG) Urine Bilirubin (NEG) Urine Urobilinogen (NEG) Urine Leukocyte Esterase (NEG) Urine RBC >30 /hpf (0-4) Urine WBC >30 /hpf (0-5) Urine Epithelial Cells 0-5 /lpf (0-5) Urine Amorphous Sediment PRESENT (NONE PRSENT) Urine Bacteria 2+ (NEG) White Blood Count 8.35 K/uL (4.8-10.8) Red Blood Count 4.48 M/uL (4.7-6.1) Hemoglobin 11.3 g/dL (14.0-18.0) Hematocrit 35.7 % (42-52) Mean Corpuscular Volume 79.7 fL (80-100) Mean Corpuscular Hemoglobin 25.2 pg (25-34) Mean Corpuscular Hemoglobin Concent 31.7 g/dl (32-36) Platelet Count 302 K/uL (130-400) Mean Platelet Volume 9.9 fL (7.4-10.4) Neutrophils (%) (Auto) 63.7 % Lymphocytes (%) (Auto) 24.7 % Monocytes (%) (Auto) 7.8 % Eosinophils (%) (Auto) 3.1 % Basophils (%) (Auto) 0.5 % Neutrophils # (Auto) 5.32 K/uL (1.4-6.5) Lymphocytes # (Auto) 2.06 K/uL (1.2-3.4) Monocytes # (Auto) 0.65 K/uL (0.11-0.59) Eosinophils # (Auto) 0.26 K/uL (0-0.5) Basophils # (Auto) 0.04 K/uL (0-0.2) RDW Standard Deviation 54.6 fL (36.4-46.3) RDW Coefficient of Variation 18.8 % (11.5-14.5) Immature Granulocyte % (Auto) 0.2 % Immature Granulocyte # (Auto) 0.02 K/uL (0.00-0.02) Anion Gap 7.0 mmol/L (3-11) Est Creatinine Clear Calc Drug Dose 66.5 ml/min Estimated GFR () 69.9 Estimated GFR (Non- 60.3 BUN/Creatinine Ratio 15.2 (10-20) Calcium Level 8.8 mg/dl (8.5-10.1) Total Bilirubin 0.3 mg/dl (0.2-1) Direct Bilirubin < 0.1 mg/dl (0-0.2) Aspartate Amino Transf (AST/SGOT) 25 U/L (15-37) Alanine Aminotransferase (ALT/SGPT) 35 U/L (12-78) Alkaline Phosphatase 83 U/L (45-117) Total Protein 7.1 gm/dl (6.4-8.2) Albumin 4.0 gm/dl (3.4-5.0) Lipase 136 U/L (73-393) Laboratory results per my review. Medications Administered Medications (Trade) Dose Ordered Sig/Gurpreet Route Start Time Stop Time Status Last Admin Dose Admin Sodium Chloride 1,000 ml @ 999 mls/hr Q1H1M STAT IV 11/16/17 16:46 11/16/17 17:46 DC 11/16/17 16:46 999 MLS/HR Trimethoprim/ Sulfamethoxazole (Septra Ds 800/ 160MG Tab) 1 tab NOW STAT PO 11/16/17 19:32 11/16/17 19:33 DC 11/16/17 19:40 1 TAB ED Course ED COURSE: Vital signs were reviewed and showed situationally hypertensive vitals. The patients medical record was reviewed The above diagnostic studies were performed and reviewed. ED treatments and interventions as stated above. 1642: The patient was evaluated in room C4. A complete history and physical examination was performed. 1645: Ordered Sodium Chloride 1000 mL @ 999 mL/hr IV. 1821: The patient was over at [facility]. 1931: Ordered Trimethoprim/Sulfamethoxazole 1 tablet PO. 1934: Upon reevaluation, the patient is sleeping in bed.I woke him up and discussed my findings with the patient and he understands and agrees with the treatment plan. Based on the patients age, coexisting illnesses, exam and lab findings the decision to treat as an outpatient was made. The patient remained stable while under my care. The patient appeared well at the time of discharge. Medical Decision Differential Diagnosis includes but is not limited to dehydration, stroke, anemia, hypoglycemia, hyponatremia, hypernatremia, urinary tract infection, pneumonia, bronchitis, sepsis, gastroenteritis, additional abdominal pathology, metabolic abnormalities and infections. Patient is a 57-year-old male who presents the ER for hematuria. He self caths and thinks that he inserted properly and since then has had bleeding. CBC along with BMP, LFTs, bilirubin and lipase was remarkable for a mild anemia. UA did show weights and bacteria without epithelial cells. Based on this with him cathing I did elect to treat with Bactrim after review of previous cultures. Patient has no fevers. No leukocytosis. Not tachycardic. Ultrasound of the kidney was unremarkable. Patient was given a dose of Bactrim and discharged follow-up with PCP as an outpatient. Discussed with Pt concerning signs and symptoms to watch out for. Pt was instructed to follow up with their PCP and discussed with the patient their option to return to the ED at anytime for persistent or worsening symptoms. The appropriate anticipatory guidance and out-patient management, including indications for return to the emergency department, were explained at length to the patient and understood. Medication Reconcilliation Current Medication List: was personally reviewed by me Blood Pressure Screening Patient's blood pressure: Elevated blood pressure Blood pressure disposition: Elevated BP felt to be situational Impression Primary Impression: Hematuria Additional Impression: UTI (urinary tract infection) Scribe Attestation The scribe's documentation has been prepared under my direction and personally reviewed by me in its entirety. I confirm that the note above accurately reflects all work, treatment, procedures, and medical decision making performed by me. Departure Information Dispostion Home / Self-Care Prescriptions Sulfa/Trimethoprim (Bactrim Ds 800MG/160MG) Tab 1 TAB PO BID, #20 TAB Prov: Vincent Fowler, DO 11/16/17 Referrals Darren Flores M.D. (PCP) Forms HOME CARE DOCUMENTATION FORM, IMPORTANT VISIT INFORMATION, WORK / SCHOOL INSTRUCTIONS Patient Instructions My [facility] Additional Instructions Please follow up with your primary care doctor with in the next 24 hours. Any worsening of your symptoms, please return to the ED immediately. This includes any fevers greater than 100.4, worsening pain, chest pain, shortness breath, persistent nausea, vomiting, unable to eat or drink, or any other concerning signs or symptoms from your standpoint. Please take antibiotics as prescribed. Problem Qualifiers Primary Impression: Hematuria Hematuria type: unspecified type Qualified Codes: R31.9 - Hematuria, unspecified Additional Impression: UTI (urinary tract infection) Urinary tract infection type: acute cystitis Hematuria presence: with hematuria Qualified Codes: N30.01 - Acute cystitis with hematuria
[2017-11-16] MEDS ORDERED: ONDA4TAB46 PO (22:30)
[2017-11-16] MEDS ORDERED: ASPI81TA28 PO (23:03)
[2017-11-16] MEDS ORDERED: RIZA1TAB11 PO (23:03)
[2017-11-16] MEDS ORDERED: TEST1INJ2 INJ (23:03)
== END 2017-11-16 19:47 | disposition home or self-care (01) ==
LOC: C.EDB 14:43 → C.EDC 19:47
DX: N39.0 Urinary tract infection, site not specified (principal); J45.909 Unspecified asthma, uncomplicated; I10 Essential (primary) hypertension; F41.8 Other specified anxiety disorders; M54.9 Dorsalgia, unspecified; G89.29 Other chronic pain; F17.200 Nicotine dependence, unspecified, uncomplicated; Z96.0 Presence of urogenital implants; Z79.82 Long term (current) use of aspirin; Z79.899 Other long term (current) drug therapy; Z88.1 Allergy status to other antibiotic agents; Z88.0 Allergy status to penicillin; Z81.8 Family history of other mental and behavioral disorders; Z83.3 Family history of diabetes mellitus; Z82.49 Family history of ischemic heart disease and other diseases of the circulatory system; Z82.0 Family history of epilepsy and other diseases of the nervous system; Z84.1 Family history of disorders of kidney and ureter

== ENCOUNTER → 2017-11-27 | Outpatient (CLI) | payer BC ==
[~2017-11-27] MED LIST changes: +ABL/5 PO; +AMPH20TA2 PO; +ASPI-390 PO; +ASPI81TA28 PO; +DIPH-416 PO; +DULO1CAP40 PO; +FRCT/ PO; +IBUP-1050 PO; +MELO-83 PO; -MELO7.5T5 PO; -MIRT15TA2 PO; +NRN800 PO; +ONDA4TAB46 PO; +PANT40TA2 PO; +RIZA1TAB11 PO; -SUCR1TAB29 PO; +SULF800T23 PO; +TEST1INJ2 INJ; +VALA1TAB31 PO
--- NOTE | 2017-11-27 16:47 | DIAGNOSTIC IMAGING REPORT ---
THORACIC SPINE WITHOUT CT DOSE: HISTORY: Pain. Neuropathy. NEUROGENIC BLADDER,SPASTIC GAIT,SACRAL RADICU TECHNIQUE: Multiaxial CT images of the thoracic spine were performed and reformatted in the sagittal and coronal plane without the use of contrast. A dose lowering technique was utilized adhering to the principles of ALARA. COMPARISON: None. FINDINGS: No fractures. No subluxation. Paraspinal soft tissues are unremarkable. There are findings of mild degenerative disc change throughout. There are findings of mild osteophytic narrowing of the bulk of the neuroforamina bilaterally. The study specifically negative for significant component of spinal or foraminal stenosis. There are no abnormal paravertebral soft tissue masses. IMPRESSION: Mild/moderate degenerative disc change throughout the entire thoracic region. 2. Mild narrowing of multiple neural foramina bilaterally. 3. No evidence for a significant component of spinal or foraminal stenosis. The above report was generated using voice recognition software. It may contain grammatical, syntax or spelling errors. Electronically signed by: Augustin Peres M.D. 11/27/2017 4:46 PM Dictated Date/Time: 11/27/2017 4:42 PM
--- NOTE | 2017-11-27 17:51 | DIAGNOSTIC IMAGING REPORT ---
CT SCAN OF THE LUMBAR SPINE WITHOUT IV CONTRAST CLINICAL HISTORY: Neurogenic bladder. Spastic gait. Reported history of transverse myelitis. COMPARISON STUDY: CT scan of the lumbar spine dated 03/29/2016. TECHNIQUE: CT scan of the lumbar spine is performed from the lower thoracic spine to the sacrum. Images were reviewed in the axial, sagittal, and coronal planes. IV contrast was not administered for this examination. A dose lowering technique was utilized adhering to the principles of ALARA. CT DOSE: 1548.80 mGy.cm FINDINGS: The skeletal structures are well mineralized. There is no evidence of fracture or malalignment. Tiny anterior osteophytes are seen throughout. There is a minimal chronic compression deformity of L1 with a Schmorl's node seen in the superior endplate of L1. Vertebral body height is otherwise maintained throughout the lumbar spine. Alignment is preserved. The transverse and spinous processes are intact. There is no spondylolysis. No lytic or blastic lesion is identified. There is no significant facet arthropathy. The intervertebral disc spaces are preserved. There is no evidence of large disc herniation or acquired compromise of the central canal. Tiny posterior disc bulges are noted at L2-L3, L4-L5, and L5-S1. There is a right lateral disc bulge at L3-L4 which may impinge on the exiting right L3 nerve root. The remaining neural foramina are clear as visualized. The visualized sacrum and bony pelvis are intact. The paraspinous soft tissues are normal as imaged. The visualized retroperitoneal structures are grossly unremarkable but incompletely evaluated. IMPRESSION: 1. No acute bony abnormality is identified involving the lumbar spine. 2. There is no evidence of large disc herniation or high-grade central canal stenosis by CT. 3. A right lateral disc bulge at L3-L4 may impinge on the exiting right L3 nerve root. Dictated: 11/27/2017 4:36 PM Transcribed: 11/27/2017 5:51 PM [email or web address] Electronically signed by: Esau Ybarra M.D. 11/27/2017 5:52 PM Dictated Date/Time: 11/27/2017 4:36 PM
== END | disposition home or self-care (01) ==
LOC: C.CTS 16:14
PROVIDERS: ATTEND Psychiatry & Neurology Neurology
DX: N31.9 Neuromuscular dysfunction of bladder, unspecified (principal); R26.1 Paralytic gait; G37.3 Acute transverse myelitis in demyelinating disease of central nervous system; M54.18 Radiculopathy, sacral and sacrococcygeal region

== ENCOUNTER 2018-12-02 15:37 | Inpatient (IN) ==
[2018-12-02 16:18] LABS: Basophils # (auto) 0.04 K/uL (0-0.2); Basophils % (auto) 0.3 %; Eosinophils # (auto) 0.05 K/uL (0-0.5); Eosinophils % (auto) 0.4 %; Hematocrit (blood only) 40.3 % (42-52); Hemoglobin 13.7 g/dL (14.0-18.0); Immature Granulocytes # (auto) 0.03 K/uL (0.00-0.02); Immature Granulocytes % (auto) 0.3 %; Lymphocytes # (auto) 1.58 K/uL (1.2-3.4); Lymphocytes % (auto) 13.7 %; Mean Corpuscular Volume 82.4 fL (80-100); Mean Platelet Volume 10.2 fL (7.4-10.4); Monocytes # (auto) 0.93 K/uL (0.11-0.59); Monocytes % (auto) 8.1 %; Neutrophils % (auto) 77.2 %; Platelet Count 268 K/uL (130-400); RDW Coefficient of Variation 16.3 % (11.5-14.5); RDW Standard Deviation 48.1 fL (36.4-46.3); Red Blood Count 4.89 M/uL (4.7-6.1); White Blood Count 11.53 K/uL (4.8-10.8)
[2018-12-02 16:34] LABS: Blood Urea Nitrogen 20 mg/dl (7-18); Carbon Dioxide 20 mmol/L (21-32); Chloride 105 mmol/L (98-107); Est GFR (African American) 60.9; Est GFR (Non-African American) 52.6; Potassium 3.7 mmol/L (3.5-5.1); Sodium 140 mmol/L (136-145)
[2018-12-02 16:35] LABS: Alanine Aminotransferase 65 U/L (12-78); Albumin Level 4.6 gm/dl (3.4-5.0); Aspartate Aminotransferase 93 U/L (15-37); BUN Creatinine Ratio 13.4 (10-20); Calcium 9.3 mg/dl (8.5-10.1); Glucose 81 mg/dl (70-99)
[2018-12-02 16:46] LABS: Acetaminophen < 2 ug/ml (10-30)
[2018-12-02 16:47] LABS: Albumin Globulin Ratio 1.3 (0.9-2); Alkaline Phosphatase 107 U/L (45-117); Bilirubin,Total 0.7 mg/dl (0.2-1); Globulin 3.5 gm/dl (2.5-4.0); Salicylate 3.2 mg/dl (2.8-20); Total Protein 8.1 gm/dl (6.4-8.2)
[2018-12-02 16:53] LABS: Appearance Urine Clear (Clear); Bilirubin Urine Negative (Negative); Blood Urine Negative (Negative); Color Urine Yellow; Glucose Urine UA Negative (Negative); Ketones Urine 1+ (Negative); Leukocyte Esterase Urine Negative (Negative); Nitrite Urine Negative (Negative); Protein Urine Negative (Negative); Specific Gravity Urine 1.017 (1.000-1.030); Urobilinogen Urine Negative (Negative); pH Urine 5.5 (4.5-7.5)
[2018-12-02] MEDS ORDERED: LORazepam 1 MG TAB SL STA (17:20)
[2018-12-02 17:23] LABS: Amphetamines+Metham, Urine Pos (Neg); Barbiturates, Urine Neg (Neg); Benzodiazepine, Urine Neg (Neg); Cocaine, Urine Neg (Neg); MDMA (Ecstacy), Urine Pos (Neg); Methadone, Urine Neg (Neg); Opiate, Urine Neg (Neg); Phencyclidine, Urine Neg (Neg)
--- NOTE | 2018-12-02 17:46 | XRay Report ---
LUMBAR SPINE 3 VIEWS CLINICAL HISTORY: Low back pain. FINDINGS: AP, lateral, and cone-down views of the lumbar spine are compared to study dated 10/04/2016 a nd correlated with lumbar spine CT dated 11/27/2017. The skeletal structures are well mineralized. The re is no radiographic evidence of fracture or malalignment. There is a mild chronic superior endplate compression deformity of L1. Vertebral body height is otherwise maintained. Alignment is preserved. There is straightening of the lumbar lordosis. Small anterior osteophytes are seen throughout. The tr ansverse and spinous processes are intact. Mild multilevel disc space narrowing is noted. The visuali zed bony pelvis appears intact. There is a nonobstructed abdominal bowel gas pattern. Clonic fecal re tention is noted. There is a healed right 11th rib fracture. IMPRESSION: No acute bony abnormality is seen involving the lumbosacral spine. Electronically signed by: Esau Ybarra M.D. 12/02/2018 5:44 PM
--- NOTE | 2018-12-02 17:47 | Emergency Department Note ---
Entered by Gabriela Huang acting as a scribe for History of Present Illness General Chief complaint: Mental Health Evaluation Stated complaint: PYSCH EPISODE Time Seen by Provider: 12/02/18 15:46 Source: patient Mode of arrival: ambulatory Limitations: no limitations History of Present Illness Onset (ago): day(s) 2 Location: head Radiation: non-radiation Pain Consistency: + constant Maximum Pain Intensity: 10 Relieved By: + none Exacerbated By: + none Associated symptoms: + other (+left low back pain, +constipation, -abdominal pain, -pain or swelling in the legs); no nausea/vomiting The patient is a 58 year old white male w/ PMHx of ADHD, anxiety, depression and previous spinal cord injury who presents to the ED w/ CC of needing a mental health evaluation. He states he has experienced disorganized thinking and speech for the past 24 hours. His admits to similar episodes previously. The patient has been taking his medications as prescribed. He denies any SI or HI. He complains of some left lower back pain. He recently started medical marijuana for the pain. He has been urinating normally but admits to some constipation. He denies any recent trauma or injuries to his back. He notes he has not slept in 2 days. The patient denies any alcohol or tobacco use. He denies any recent nausea, vomiting or abdominal pain. He denies any pain or swelling in his legs. Home Medications Home Medications Medication Instructions Recorded Confirmed Type alprazolam 1 mg PO TID PRN 05/25/18 12/02/18 History aripiprazole [Abilify] 15 mg PO QAM 05/25/18 12/02/18 History bupropion HCl [Wellbutrin SR] 200 mg PO BID 05/25/18 12/02/18 History gjjyucptky-kcwdumgbbmcrl-[id number] 1 - 2 tab PO BID PRN 05/25/18 12/02/18 History [Fioricet] dextroamphetamine-amphetamine 20 mg PO BID PRN 05/25/18 12/02/18 History [Adderall] diphenoxylate-atropine [Lomotil] 1 tab PO Q8H PRN 05/25/18 12/02/18 History gabapentin 800 mg PO QID 05/25/18 12/02/18 History pantoprazole 40 mg PO BID 05/25/18 12/02/18 History rizatriptan 10 mg PO DIRECTED PRN 05/25/18 12/02/18 History tadalafil [Cialis] 5 mg PO DAILY PRN 05/25/18 12/02/18 History tolterodine [Detrol] 2 mg PO BID 06/12/18 12/02/18 History aspirin [Ecotrin Low Strength] 81 mg PO BID #84 tab 06/13/18 12/02/18 Rx Allergies Allergy/AdvReac Type Severity Reaction Status Date / Time Cipro Allergy Intermediate RASH Verified 01/05/18 13:07 ciprofloxacin Allergy Intermediate RASH Verified 08/06/18 23:01 Penicillins Allergy Intermediate RASH Verified 08/06/18 23:01 Past Med/Surg History Medical History Hypogonadism BPH (benign prostatic hyperplasia) Sepsis due to pneumonia Admitted @ [facility] 03/2017, had subsequent pulm w/u and f/u for persistently declining diffusion capacity on PFTs Abnormal PFTs "low but consistent decline in his pulmonary function/diffusion capacity since 2008." Transverse myelitis H/O in 2005. 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 Urinary retention (Chronic) Low testosterone (Chronic) Tobacco abuse (Chronic) Anxiety Attention deficit disorder (ADD) Depression GERD (gastroesophageal reflux disease) History of urinary incontinence pt self-caths at home Migraine Need for prophylaxis against urinary tract infection Social History Preferred Language: Senegalese Communication Ability: Effective Visual Impairment: No Limitations Beliefs That Will Affect Care: None Current Living Situation: Spouse Feels Safe at Home: Yes Smoking Status: Never smoker Tobacco Type: cigarettes Cigarettes Per Day: 1 PACK PER DAY x 20+ Hx Alcohol Use: No Hx Substance Use: No Review of Systems See HPI for pertinent positives & negatives. and A total of 10 systems reviewed and were otherwise negative Physical Exam Vital Signs Vital Signs - 24 hr 12/02/18 15:41 12/02/18 17:39 Temperature 36.9 C Temperature Source Oral Sepsis Recent Fever Within 48 Hours No Sepsis New/Unexplained Change in Mental Status No Sepsis Action Taken by Nursing No Action Required Pulse Rate 112 H Pulse Rate [Finger] 96 H Respiratory Rate 20 18 Respiratory Effort / Characteristics Non-Labored Spontaneous Respiratory Depth Normal Blood Pressure 136/77 Blood Pressure [Left Arm] 155/79 H Blood Pressure Mean 96 Blood Pressure Mean [Left Arm] 104 Blood Pressure Position Sitting Pulse Oximetry 95 98 Oxygen Delivery Method Room Air GENERAL: Well appearing, well nourished, wearing glasses, NAD, non-toxic. EYE EXAM: Normal conjunctiva. PERRL, no anisocoria and EOM's grossly intact w/o pain. OROPHARYNX: Moist mucus membranes. Grossly normal dentition. NECK: Supple, no nuchal rigidity, no adenopathy, non-tender. No signs of meningismus. LUNGS: Clear to auscultation. Normal chest wall mechanics. HEART: NSR, no MRG. ABDOMEN: Abdomen soft, non-tender, normo-active bowel sounds, no masses, no rebound or guarding. BACK: No CVA TTP. Mild left paraspinal lumbar pain. No midline step-offs. SKIN: No rashes and no bruising. UPPER EXTREMITIES: Upper extremities are grossly normal. LOWER EXTREMITIES: No pitting edema. No calf pain. NEURO EXAM: A&O x3, cranial nerves II-XII grossly intact, normal speech, moves all 4 extremities on command w/o issue. No saddle anesthesia. PSYCHIATRIC: Patient avoids eye contact, pressured speech, no SI or HI. No AVH. Course 1549: The patient was evaluated in room A6 and a complete history and physical were performed. Administered Medications Discontinued Medications Lorazepam (Ativan) 1 mg SL NOW STA Stop: 12/02/18 17:21 Last Admin: 12/02/18 17:39 Dose: 1 mg Documented by: [id number] Medical Decision Making Medical Records Attestation: I reviewed the patient's medical records. Home Medications Current Medication List: was personally reviewed by nm Laboratory Data Attestation: I reviewed the patient's lab results. Result diagrams: 12/02/18 15:57 12/02/18 15:57 Lab Results 12/02/18 12/02/18 12/02/18 Range/Units 15:57 15:57 15:57 WBC 11.53 H (4.8-10.8) K/uL RBC 4.89 (4.7-6.1) M/uL Hgb 13.7 L (14.0-18.0) g/dL Hct 40.3 L (42-52) % MCV 82.4 (80-100) fL MCH 28.0 (25-34) pg MCHC 34.0 (32-36) g/dL RDW Std Deviation 48.1 H (36.4-46.3) fL RDW Coeff of Regis 16.3 H (11.5-14.5) % Plt Count 268 (130-400) K/uL MPV 10.2 (7.4-10.4) fL Immature Gran % (Auto) 0.3 % Neut % (Auto) 77.2 % Lymph % (Auto) 13.7 % [place] % (Auto) 8.1 % Eos % (Auto) 0.4 % Baso % (Auto) 0.3 % Immature Gran # (Auto) 0.03 H (0.00-0.02) K/uL Neut # (Auto) 8.90 H (1.4-6.5) K/uL Lymph # (Auto) 1.58 (1.2-3.4) K/uL [place] # (Auto) 0.93 H (0.11-0.59) K/uL Eos # (Auto) 0.05 (0-0.5) K/uL Baso # (Auto) 0.04 (0-0.2) K/uL Sodium 140 (136-145) mmol/L Potassium 3.7 (3.5-5.1) mmol/L Chloride 105 (98-107) mmol/L Carbon Dioxide 20 L (21-32) mmol/L Anion Gap 15.0 H (3-11) BUN 20 H (7-18) mg/dl Creatinine 1.47 H (0.6-1.4) mg/dl Est Cr Clr Drug Dosing Not Reportable Est GFR ( Amer) 60.9 Est GFR (Non-Af Amer) 52.6 BUN/Creatinine Ratio 13.4 (10-20) Glucose 81 (70-99) mg/dl Calcium 9.3 (8.5-10.1) mg/dl Total Bilirubin 0.7 (0.2-1) mg/dl AST 93 H (15-37) U/L ALT 65 (12-78) U/L Alkaline Phosphatase 107 (45-117) U/L Total Protein 8.1 (6.4-8.2) gm/dl Albumin 4.6 (3.4-5.0) gm/dl Globulin 3.5 (2.5-4.0) gm/dl Albumin/Globulin Ratio 1.3 (0.9-2) TSH 1.330 (0.300-4.500) uIu/ml Urine Color Urine Appearance (Clear) Urine pH (4.5-7.5) Ur Specific [place] (1.000-1.030) Urine Protein (Negative) Urine Glucose (UA) (Negative) Urine Ketones (Negative) Urine Blood (Negative) Urine Nitrite (Negative) Urine Bilirubin (Negative) Urine Urobilinogen (Negative) Ur Leukocyte Esterase (Negative) Salicylates 3.2 (2.8-20) mg/dl Urine Opiates Screen (Neg) Ur Methadone, Qual (Neg) Acetaminophen < 2 L (10-30) ug/ml Urine Barbiturates (Neg) Ur Phencyclidine (PCP) (Neg) U Amphetamin/Meth Scrn (Neg) MDMA (Ecstasy) Screen (Neg) U Benzodiazepines Scrn (Neg) Ur Cocaine Metabolite (Neg) U Marijuana (THC) Screen (Neg) Ethyl Alcohol mg/dL (0-3) mg/dl 12/02/18 12/02/18 12/02/18 Range/Units 15:57 16:34 16:34 WBC (4.8-10.8) K/uL RBC (4.7-6.1) M/uL Hgb (14.0-18.0) g/dL Hct (42-52) % MCV (80-100) fL MCH (25-34) pg MCHC (32-36) g/dL RDW Std Deviation (36.4-46.3) fL RDW Coeff of Regis (11.5-14.5) % Plt Count (130-400) K/uL MPV (7.4-10.4) fL Immature Gran % (Auto) % Neut % (Auto) % Lymph % (Auto) % [place] % (Auto) % Eos % (Auto) % Baso % (Auto) % Immature Gran # (Auto) (0.00-0.02) K/uL Neut # (Auto) (1.4-6.5) K/uL Lymph # (Auto) (1.2-3.4) K/uL [place] # (Auto) (0.11-0.59) K/uL Eos # (Auto) (0-0.5) K/uL Baso # (Auto) (0-0.2) K/uL Sodium (136-145) mmol/L Potassium (3.5-5.1) mmol/L Chloride (98-107) mmol/L Carbon Dioxide (21-32) mmol/L Anion Gap (3-11) BUN (7-18) mg/dl Creatinine (0.6-1.4) mg/dl Est Cr Clr Drug Dosing Est GFR ( Amer) Est GFR (Non-Af Amer) BUN/Creatinine Ratio (10-20) Glucose (70-99) mg/dl Calcium (8.5-10.1) mg/dl Total Bilirubin (0.2-1) mg/dl AST (15-37) U/L ALT (12-78) U/L Alkaline Phosphatase (45-117) U/L Total Protein (6.4-8.2) gm/dl Albumin (3.4-5.0) gm/dl Globulin (2.5-4.0) gm/dl Albumin/Globulin Ratio (0.9-2) TSH (0.300-4.500) uIu/ml Urine Color Yellow Urine Appearance Clear (Clear) Urine pH 5.5 (4.5-7.5) Ur Specific [place] 1.017 (1.000-1.030) Urine Protein Negative (Negative) Urine Glucose (UA) Negative (Negative) Urine Ketones 1+ H (Negative) Urine Blood Negative (Negative) Urine Nitrite Negative (Negative) Urine Bilirubin Negative (Negative) Urine Urobilinogen Negative (Negative) Ur Leukocyte Esterase Negative (Negative) Salicylates (2.8-20) mg/dl Urine Opiates Screen Neg (Neg) Ur Methadone, Qual Neg (Neg) Acetaminophen (10-30) ug/ml Urine Barbiturates Neg (Neg) Ur Phencyclidine (PCP) Neg (Neg) U Amphetamin/Meth Scrn Pos H (Neg) MDMA (Ecstasy) Screen Pos H (Neg) U Benzodiazepines Scrn Neg (Neg) Ur Cocaine Metabolite Neg (Neg) U Marijuana (THC) Screen Pos H (Neg) Ethyl Alcohol mg/dL < 3.0 (0-3) mg/dl Imaging Data Radiologist's Impression: LUMBAR SPINE 3 VIEWS CLINICAL HISTORY: Low back pain. FINDINGS: AP, lateral, and cone-down views of the lumbar spine are compared to study dated 10/04/2016 and correlated with lumbar spine CT dated 11/27/2017. The skeletal structures are well mineralized. There is no radiographic evidence of fracture or malalignment. There is a mild chronic superior endplate compression deformity of L1. Vertebral body height is otherwise maintained. Alignment is preserved. There is straightening of the lumbar lordosis. Small anterior osteophytes are seen throughout. The transverse and spinous processes are intact. Mild multilevel disc space narrowing is noted. The visualized bony pelvis appears intact. There is a nonobstructed abdominal bowel gas pattern. Clonic fecal retention is noted. There is a healed right 11th rib fracture. IMPRESSION: No acute bony abnormality is seen involving the lumbosacral spine. Electronically signed by: Esau Ybarra M.D. 12/02/2018 5:44 PM Dictated: 12/02/181741 Transcribed: 12/02/181741 ECG Data Attestation: I personally reviewed and interpreted this ECG as follows: Indication: tachycardia Rate (beats per minute): 101 Rhythm: sinus tachycardia Findings: + T-wave inversion (TWI in lead 3, not in contiguous leads) Additional Comments: Normal intervals, normal axis, no STS changes. Blood Pressure Blood Pressure Findings: Elevated blood pressure Blood Pressure Disposition: elevated BP felt to be situational MDM Narrative Ancillary records reviewed/Prior records reviewed. Triage nursing summary reviewed. The patient is a 58 year old white male w/ PMHx of BPH and previous spinal cord injury who presents to the ED w/ CC of needing a mental health evaluation. Differential: Mood Disorder, Overdose, Infectious, Electrolyte Abnormality, Cardiac, Hepatic, Endocrine, Toxicologic, Neurologic, amongst other pathologies Entertained. Patient was seen and evaluated the bedside. The patient was reportedly having some increasing claudia as psychosis and auditory hallucinations. Patient states he has been taking his medications as prescribed. The patient recently had been started on medical marijuana. The patient denies SI or HI. The patient is not willing to stay inpatient. The patient did have blood work completed which is fairly unremarkable. The patient does have a mild elevation in AST which has been somewhat elevated in the past and is nonspecific. The patient does not complain of any right upper quadrant pain. Patient is not acutely intoxicated has a negative tox screen. The patient does have mild change in his kidney function but is not grossly elevated. The patient was given Geodon and Ativan. Did have a conversation with the and the was initially hoping for medical admission but the patient does not meet acute criteria for medical admission if her only concern is his lack of sleep and decreased eating. She states that the patient would not be a voluntary admission and the patient is willing to commit the patient and signed a 302. This was signed. The patient was pending inpatient psychiatric treatment. Patient was medically cleared. Patient was signed out to Dr. Sparrow pending placement. Impression & Plan Acute psychosis, Auditory hallucination Discharge Plan Visit Data Chief Complaint: Mental Health Evaluation Stated Complaint: PYSCH EPISODE ED Provider: Keenan Hung Discharge Problem: Acute psychosis, Auditory hallucination Forms Stand Alone Forms: [facility] Prescriptions Prescriptions: No Action [id number] [Fioricet] 50-300-40 mg Capsule 1 - 2 tab PO BID PRN (Reason: Headache) RF: 0 alprazolam 1 mg Tablet 1 mg PO TID PRN (Reason: Anxiety) RF: 0 dextroamphetamine-amphetamine [Adderall] 20 mg Tablet 20 mg PO BID PRN (Reason: Anxiety) RF: 0 aripiprazole [Abilify] 15 mg Tablet 15 mg PO QAM RF: 0 diphenoxylate-atropine [Lomotil] 2.5-0.025 mg Tablet 1 tab PO Q8H PRN (Reason: Diarrhea) RF: 0 bupropion HCl [Wellbutrin SR] 200 mg Tablet Sustained-Release 12 Hr 200 mg PO BID RF: 0 gabapentin 400 mg Capsule 800 mg PO QID RF: 0 pantoprazole 40 mg Tablet,Delayed Release (Dr/Ec) 40 mg PO BID RF: 0 rizatriptan 10 mg Tablet 10 mg PO DIRECTED PRN (Reason: Headache) RF: 0 tadalafil [Cialis] 5 mg Tablet 5 mg PO DAILY PRN (Reason: SEXUAL DYSFUNCTION) RF: 0 tolterodine [Detrol] 2 mg Tablet 2 mg PO BID RF: 0 aspirin [Ecotrin Low Strength] 81 mg Tablet,Delayed Release (Dr/Ec) 81 mg PO BID Qty: 84 RF: 0 The scribe's documentation has been prepared under my direction and personally reviewed by me in its entirety. I confirm that the note above accurately reflects all work, treatment, procedures, and medical decision making performed by me.
[2018-12-02] MEDS ORDERED: RIZATRIPTAN BENZOATE 10 MG TAB PO PRN (19:32)
[2018-12-02] MEDS ORDERED: ALPRAZolam 0.5 MG TABLET PO PRN (19:32)
[2018-12-02] MEDS ORDERED: NON-FORMULARY MEDICATION (Tadalafil [Cialis] 5 MG) PO PRN (19:32)
[2018-12-02] MEDS ORDERED: BUTALBITAL ACETAMINOPHEN CAFF PO PRN (19:32)
[2018-12-02] MEDS ORDERED: DIPHENOXYLATE/ATROPINE 2.5/0.025MG TAB PO PRN (19:32)
[2018-12-02] MEDS ORDERED: AMPHETAMINE ASP/SULF/DEXTRAMPH 20 MG TAB PO PRN (19:32)
--- NOTE | 2018-12-02 20:55 | CT Scan Report ---
CT SCAN OF THE BRAIN WITHOUT IV CONTRAST CLINICAL HISTORY: Headache. COMPARISON STUDY: CT of the brain dated 10/05/2016. TECHNIQUE: Unenhanced axial CT scan of the brain is performed from the vertex to the skull base. A d ose lowering technique was utilized adhering to the principles of ALARA. CT DOSE: 537.48 mGy.cm FINDINGS: Brain parenchyma: The brain parenchyma is normal in appearance. There is no hemorrhage, mass effect, or evidence of acute territorial ischemia by CT criteria. Mello-white matter differentiation is preser dave. No extra-axial fluid collection is seen. Ventricles, sulci, cisterns: Normal in configuration. Intracranial vasculature: The visualized intracranial vasculature at the skull base is normal in appe arance. Calvarium: Unremarkable. Sinuses and mastoids: The visualized paranasal sinuses are clear. The mastoid air cells are well pneu matized. Orbits: The bony orbits are grossly intact. IMPRESSION: No acute intracranial abnormality. Electronically signed by: Esau Ybarra M.D. 12/02/2018 8:54 PM
[2018-12-02] MEDS ORDERED: PANTOprazole 40 MG TAB PO SCH (21:00)
[2018-12-02] MEDS ORDERED: GABAPENTIN 400 MG CAP PO SCH (21:00)
[2018-12-02] MEDS ORDERED: BuPROPion SR 100 MG TABCR PO SCH (21:00)
[2018-12-02] MEDS ORDERED: TOLTERODINE TARTRATE 2 MG TAB PO SCH (21:00)
[2018-12-02] MEDS ORDERED: ASPIRIN 81 MG ECTAB PO SCH (21:00)
[2018-12-02] MEDS ORDERED: SODIUM CHLORIDE 0.65% NA SOLN 45 ML (OCEAN) PRN (21:57)
[2018-12-02] MEDS ORDERED: BISMUTH SUBSALICYLATE PER ML OMNICELL CHARGE PO PRN (21:57)
[2018-12-02] MEDS ORDERED: ALUMINUM/MAGNESIUM SUSP 30 ML UDC PO PRN (21:57)
[2018-12-02] MEDS ORDERED: MAGNESIUM HYDROXIDE SUSP 30 ML UDC PO PRN (21:57)
[2018-12-02] MEDS ORDERED: ACETAMINOPHEN 325 MG TAB PO PRN (21:57)
--- NOTE | 2018-12-02 22:37 | Emergency Department Note ---
ED Visit Note The patient was admitted to [address] .
[2018-12-03] MEDS: GABAPENTIN 800 MG TAB PO SCH ×2 (08:51→13:26)
[2018-12-03] MEDS ORDERED: TOLTERODINE TARTRATE 1 MG TAB PO SCH (09:00)
[2018-12-03] MEDS ORDERED: PANTOprazole 40 MG TAB PO SCH ×2 (09:00→10:15)
[2018-12-03] MEDS ORDERED: ARIPiprazole 5 MG TAB PO SCH (09:00)
[2018-12-03] MEDS ORDERED: ASPIRIN 81 MG ECTAB PO SCH (09:00)
[2018-12-03] MEDS ORDERED: ARIPiprazole 15 MG TAB PO SCH (09:00)
[2018-12-03] MEDS ORDERED: RIZATRIPTAN BENZOATE 10 MG TAB PO PRN (10:04)
[2018-12-03] MEDS ORDERED: LORazepam 1 MG TAB PO PRN (10:05)
--- NOTE | 2018-12-03 10:05 | History & Physical ---
Date of Service December 03, 2018 Impression / Recommendations Impression 58-year-old white male with a history of transverse myelitis, impaired pulmonary function, migraine, BPH, ADHD, depression or bipolar disorder who presents with acute change in mental status over the 24-48 hours prior to admission, with confusion, disorientation, hallucinations, paranoia, and agitation. His drug screen was positive for amphetamine/methamphetamine, MDMA, and marijuana, and he reported starting medicinal marijuana within the past week for chronic pain. He has been hospitalized multiple times in the past for delirium due to medications, and is prescribed numerous controlled substances, including alprazolam, Adderall, Fioricet, and now medicinal marijuana. The differential includes delirium due to substances/medications, substance-induced psychosis, and psychotic mood disorder. He is admitted on a 302 involuntary commitment. (1) Acute psychosis: 12/03 -patient reports auditory and visual hallucinations and paranoia in the context of starting medicinal marijuana this past week. His psychotic symptoms are largely cleared this morning, and we discussed the risks of cannabis use, including psychosis, and the recommendations that he not use THC products for his chronic pain. -We will need to coordinate care with Dr. Hernandez, his outpatient physician. -Encephalopathy may be multifactorial, as admission labs also show impaired renal function with elevated BUN and creatinine. Will recheck those today, as well as creatinine kinase and AST, which was significantly elevated. AST has gone up further 120, and total creatinine kinase is elevated at 4458. Creatinine has come down and is 1.36, but BUN is 22. Will consult hospitalist service for assistance. Present on Admission?: Yes (2) Mood disorder: 5/6 -historical diagnosis of bipolar disorder, but patient denies a history of manic episodes. He does think aripiprazole is helpful for mood, so will continue his home dose. Bupropion, buspirone, and Adderall are being held due to altered mental status. -Order fasting lipid profile and glucose for monitoring on an atypical antipsychotic. -Coordinate care with outpatient psychiatrist, and send records. -Patient informed that he is admitted on a 302 involuntary commitment, and that that means he cannot legally own, purchase, or possess firearms in the [facility]. We will need to confirm with his that there are no guns in the home. Present on Admission?: Yes (3) Cannabis abuse: 5/6 -patient reports he recently started medicinal marijuana for pain. Will discontinue alprazolam due to potential interactions, hold Fioricet, and coordinate care with his outpatient physician as above. He appears very sensitive to elevate and psychosis from hallucinogens, so would recommend he not use THC products. Present on Admission?: Yes (4) Transverse myelitis: Follow up with outpatient neurologist, send records to coordinate care. Continue gabapentin. Present on Admission?: Yes (5) Urinary retention: Continue self-catheterization. Present on Admission?: Yes (6) Tobacco abuse: 12/03 -offer nicotine gum and patch as needed for cravings, smoking cessation education, and outpatient follow-up with PCP. Present on Admission?: Yes (7) BPH (benign prostatic hyperplasia): Continue home dose of Detrol. Present on Admission?: Yes (8) Migraine: Continue home dose of triptan, and follow-up with neurologist. Hold Fioricet due to altered mental status. Present on Admission?: Yes Inventory Assets Strengths: Stable housing, supportive Needs: Decrease polypharmacy due to risk of delirium, avoidance of hallucinogens Risk Factors Assessment Male: Yes : Yes Do You Have Access To A Gun?: No (Patient denies, but he and previously reported there were guns in the home. ) Health Problems: Yes Mental Health Diagnoses: Yes Substance Use Disorders: No (But on multiple controlled substances) Previous Attempt: No Family History of Suicide: No Previous Psychiatric Hospitalization: No Hopelessness: No Smoker: Yes Protective Factors Assessment : Yes Responsible for Young Children: No Employed: No Supportive Family: Yes Psychiatric History Identifying Data ROBYN YODER is a 58-year-old M who currently lives in [place] with his , has a history of multiple medical problems including transverse myelitis, impaired pulmonary function, migraine, BPH, ADHD, depression or bipolar disorder (both listed in the record), and was admitted on 12/02/18 21:58 on a 302 involuntary commitment for psychosis. Chief Complaint "I was becoming confused". History of Present Illness Information was obtained from the patient, the 302 petition, and the medical r ecord. He has a history of numerous medical hospitalizations, was seen by the psychiatric consult service multiple times in 2015, presented to the emergency room yesterday (12/02/2018) afternoon for mental health evaluation. His reported that he had been disorganized for the past 24 hours, was agitated, and delusional. She completed a 302 petition stating that he had not eaten or slept for almost 2 full days, was becoming increasingly anxious, paranoid, angry, delusional, and agitated. His external medication history also lists alprazolam 1 mg 3 times daily as needed, dextroamphetamine/amphetamine, and Fioricet. He was a limited historian, answering with short, sarcastic statements. His reported he has been disabled since 2005, has chronic neuropathic pain, and recently started vaping marijuana for his back pain. She reported an acute change in mental status over the past 24 hours, stating he was not acting himself, was not making sense, thought they were on a ship, and appeared frightened. He expressed concerns that people not in their house were able to hear them, and worries about his dog's health. He was uncooperative in the ER, at one point shredded his paper scrubs and was sitting in his room naked. He was pulling at tags on the bed mattress. His drug screen was positive for amphetamine/methamphetamine, MDMA, and THC. WBC and AST (93) were mildly eleva lissette, BUN and creatinine were elevated (20 and 1.47), with an increased anion gap. UA showed 1+ ketones and was otherwise normal. Lumbar spine x-ray showed no acute abnormalities, but mild chronic superior endplate compression deformity of L1 and mild multilevel disc space narrowing. Head CT showed no acute abnormalities. EKG showed sinus tachycardia with a rate of 101 and QTC 433. Blood pressure was elevated and has been in the 150s /80s-90s. He reported he had been taking his medication as prescribed, and had recently started medicinal marijuana for chronic pain. He was unwilling for inpatient treatment, so was placed on a 302 involuntary commitment. He received Lorazepam and alprazolam in the ER. On admission he was continued on his reported home doses of aripiprazole 15 mg every morning, aspirin 81 mg twice daily, gabapentin 800 mg 4 times daily, and Detrol 2 mg twice daily. Alprazolam, bupropion, Fioricet, Adderall, and Cialis were held. On the unit, he has been restless, confused, nonsensical in his answers, picking at the bed sheets and said he thought he dropped a pill. He requested a snack, and then tried to drink the banana he was given, and required cues to drink from his cup and eats a banana. He was in and out of his room all night, thought he was leaving the hospital, was disoriented. He was agitated, and entered a female patient's room. He stated that he self caths, and was provided with supplies and was able to void a large quantity of urine, after which he was calmer. On my assessment, the patient states he became acutely confused either yesterday or the day before, stating "information that should have been very easy for me to get was confusing." He struggles to give any examples, stating "that is a hard question." He says he came to the hospital because "my wanted me to get checked out." He denies any recent stressors, states mood has been stable, and his chronic anxiety is unchanged, as he typically worries "about lots of th ings." He also reports chronic episodic insomnia, and admits that he did not sleep 2 nights prior to hospitalization, and denies any trigger for this. He states his confusion occurred shortly after starting medicinal marijuana for pain, stating he uses an unknown preparation via a vape. He does not know the ratio of THC/CBD, but states that within days of starting it, he developed auditory and visual hallucinations and paranoia. These have resolved since he was admitted to the hospital. He states he has not taken Xanax in about a week since he started the medical marijuana, and has not used Fioricet" a long time." He reports taking his scheduled medications as prescribed, and denies any recent changes. He reports poor p.o. intake in his state of confusion, but has been drinking fluids since admission. He reports a history of bipolar diagnosis, but states he has never been manic, then says "maybe I had a manic episode years ago, I don't know, I was really confused, didn't even know what month it was." He has no interest in therapy, stating "I tried it a long time ago, and it did not work out, it is good for some people but not for others." He requests to be moved to the medical floor, and explained that he is hospitalized psychiatrically on a 302 involuntary commitment. He is willing to have a family meeting with his . Past Psychiatric History Previous Psych History: Patient was seen by the psychiatry consult service in May and June 2016 when he had multiple hospitalizations for delirium. At that time, he was prescribed multiple central acting medications including Fioricet, Abilify, Wellbutrin, BuSpar, Cymbalta, gabapentin, and morphine. Records from his outpatient psychiatrist, Dr. Hernandez, indicated a history of bipolar disorder NOS, anxiety NOS, and ADHD unspecified.. The recommendations at that time were to taper and discontinue controlled substances, as it appears medications contributed to delirium, as well as rhabdomyolysis. Previous outpatient records from [facility], initial psychiatric evaluation 01/2016: Patient reported a history of bipolar disorder, with manic episodes where mood is euphoric, high energy/hyper, rapid, pressured speech, flight of ideas, racing thoughts, hypersexuality, excessive spending, and fighting with other people, lasting 2-4 weeks. Also reported a history of depressive episodes lasting 6 months. He also endorsed feeling anxious, excessive worry, impaired focus, restlessness, palpitations, increased heart rate, chest tightness, sweating, and feeling fearful, at times not wanting to leave the house. Current Psychiatric Diagnosis: Unknown Outpatient Services: Psychiatrist Dr. Hernandez No therapist Previous Psych Admissions: None per records. Do You Have Access To A Gun?: No (Patient denies, but he and previously reported there were guns in the home. ) History of Previous Suicide Attempt: No Past Medication Trials: Per records: Duloxetine Buspirone Allergies Allergy/AdvReac Type Severity Reaction Status Date / Time Cipro Allergy Intermediate RASH Verified 01/05/18 13:07 ciprofloxacin Allergy Intermediate RASH Verified 08/06/18 23:01 Penicillins Allergy Intermediate RASH Verified 08/06/18 23:01 Home Medications Home Medications Medication Instructions Recorded Confirmed Type alprazolam 1 mg PO TID PRN 05/25/18 12/02/18 History aripiprazole [Abilify] 15 mg PO QAM 05/25/18 12/02/18 History bupropion HCl [Wellbutrin SR] 200 mg PO BID 05/25/18 12/02/18 History nyxoaaopgt-ilefpfuerdrih-cest 1 - 2 tab PO BID PRN 05/25/18 12/02/18 History [Fioricet] diphenoxylate-atropine [Lomotil] 1 tab PO Q8H PRN 05/25/18 12/02/18 History gabapentin 800 mg PO QID 05/25/18 12/02/18 History pantoprazole 40 mg PO BID 05/25/18 12/02/18 History rizatriptan 10 mg PO DIRECTED PRN 05/25/18 12/02/18 History tadalafil [Cialis] 5 mg PO DAILY PRN 05/25/18 12/02/18 History tolterodine [Detrol] 2 mg PO BID 06/12/18 12/02/18 History aspirin [Ecotrin Low Strength] 81 mg PO BID #84 tab 06/13/18 12/02/18 Rx buspirone 30 mg PO TID 12/03/18 12/03/18 History dextroamphetamine-amphetamine 30 mg PO QAM 12/03/18 12/03/18 History testosterone cypionate 12/03/18 History Family History Family History of: None Alcohol History Hx of Alcohol Use Over the Past 12 Months: No Smoking Use Have You Smoked or Used Tobacco Products in the Last 30 Days: No tobacco type: cigarettes Smoking Status: Former smoker Substance History Hx of Prescription Med Misuse Over the Past 12 Months: No Hx of Over the Counter Med Misuse Over the Past 12 Months: No Hx of Inhalent Misuse Over the Past 12 Months: No Hx of Organic Substance Use Over the Past 12 Months: Yes (prescribed medical marijuana) Hx of Illegal Substances/Street Drug Use Over Past 12 Months: No Problems as a Result of Past Substance Use: None Identified Patient's has consistently denied that he abuses his prescribed medications, alcohol, or illicit drugs. He did recently start using marijuana for pain, and is prescribed multiple controlled substances including a stimulant, benzodiazepine, and butalbital. Personal History Living Arrangements: Home Living Arrangements Comments: With . Previously lived in [place]. Employment Status: Disabled (Since 2005 for transverse myelitis) Number Of Children: 1 daughter from a previous relationship Beliefs That Will Affect Care: None Hx Traumatic Life Events: No (Per records) Patient History Medical History Hypogonadism BPH (benign prostatic hyperplasia) Sepsis due to pneumonia Admitted @ [facility] 03/2017, had subsequent pulm w/u and f/u for persistently declining diffusion capacity on PFTs Abnormal PFTs "low but consistent decline in his pulmonary function/diffusion capacity since 2008." Transverse myelitis H/O in 2005. 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 Urinary retention (Chronic) Low testosterone (Chronic) Tobacco abuse (Chronic) Anxiety Attention deficit disorder (ADD) Depression GERD (gastroesophageal reflux disease) History of urinary incontinence pt self-caths at home Migraine Need for prophylaxis against urinary tract infection Social History Preferred Language: Kenyan Communication Ability: Effective Communication Ability Comment: needs cueing for tasks with some assistance d/t thought process Visual Impairment: No Limitations Factory Clerk Required: No Beliefs That Will Affect Care: None Current Living Situation: Spouse Feels Safe at Home: Yes Smoking Status: Former smoker Tobacco Type: cigarettes Cigarettes Per Day: 1 PACK PER DAY x 20+ Hx Alcohol Use: No Hx Substance Use: No Review of Systems Review of Systems: All systems reviewed & are unremarkable except as noted in HPI & below Chronic pain Physical Exam Vital Signs (Past 24 Hours): Last Vital Signs Temp 36.9 C 12/03/18 01:05 Pulse 109 H 12/03/18 01:05 Resp 16 12/03/18 01:05 BP 155/87 H 12/03/18 01:05 Pulse Ox 97 12/03/18 01:05 Exam Statement: A physical exam was performed in the ER prior to admission to the unit by Dr. Keenan Hung. I accept that physical as correct/medical clearance for the inpatient physical exam. Results & Data Laboratory Results Laboratory Results - last 24 hr 12/02/18 12/02/18 12/02/18 15:57 15:57 15:57 WBC 11.53 H RBC 4.89 Hgb 13.7 L Hct 40.3 L MCV 82.4 MCH 28.0 MCHC 34.0 RDW Std Deviation 48.1 H RDW Coeff of Regis 16.3 H Plt Count 268 MPV 10.2 Immature Gran % (Auto) 0.3 Neut % (Auto) 77.2 Lymph % (Auto) 13.7 Gila % (Auto) 8.1 Eos % (Auto) 0.4 Baso % (Auto) 0.3 Immature Gran # (Auto) 0.03 H Neut # (Auto) 8.90 H Lymph # (Auto) 1.58 Gila # (Auto) 0.93 H Eos # (Auto) 0.05 Baso # (Auto) 0.04 Sodium 140 Potassium 3.7 Chloride 105 Carbon Dioxide 20 L Anion Gap 15.0 H BUN 20 H Creatinine 1.47 H Est Cr Clr Drug Dosing Not Reportable Est GFR ( Amer) 60.9 Est GFR (Non-Af Amer) 52.6 BUN/Creatinine Ratio 13.4 Glucose 81 POC Glucose Calcium 9.3 Total Bilirubin 0.7 AST 93 H ALT 65 Alkaline Phosphatase 107 Total Protein 8.1 Albumin 4.6 Globulin 3.5 Albumin/Globulin Ratio 1.3 TSH 1.330 Urine Color Urine Appearance Urine pH Ur Specific [place] Urine Protein Urine Glucose (UA) Urine Ketones Urine Blood Urine Nitrite Urine Bilirubin Urine Urobilinogen Ur Leukocyte Esterase Salicylates 3.2 Urine Opiates Screen Ur Methadone, Qual Acetaminophen < 2 L Urine Barbiturates Ur Phencyclidine (PCP) U Amphetamin/Meth Scrn MDMA (Ecstasy) Screen U Benzodiazepines Scrn Ur Cocaine Metabolite U Marijuana (THC) Screen Ethyl Alcohol mg/dL 12/02/18 12/02/18 12/02/18 15:57 16:34 16:34 WBC RBC Hgb Hct MCV MCH MCHC RDW Std Deviation RDW Coeff of Regis Plt Count MPV Immature Gran % (Auto) Neut % (Auto) Lymph % (Auto) Gila % (Auto) Eos % (Auto) Baso % (Auto) Immature Gran # (Auto) Neut # (Auto) Lymph # (Auto) Gila # (Auto) Eos # (Auto) Baso # (Auto) Sodium Potassium Chloride Carbon Dioxide Anion Gap BUN Creatinine Est Cr Clr Drug Dosing Est GFR ( Amer) Est GFR (Non-Af Amer) BUN/Creatinine Ratio Glucose POC Glucose Calcium Total Bilirubin AST ALT Alkaline Phosphatase Total Protein Albumin Globulin Albumin/Globulin Ratio TSH Urine Color Yellow Urine Appearance Clear Urine pH 5.5 Ur Specific [place] 1.017 Urine Protein Negative Urine Glucose (UA) Negative Urine Ketones 1+ H Urine Blood Negative Urine Nitrite Negative Urine Bilirubin Negative Urine Urobilinogen Negative Ur Leukocyte Esterase Negative Salicylates Urine Opiates Screen Neg Ur Methadone, Qual Neg Acetaminophen Urine Barbiturates Neg Ur Phencyclidine (PCP) Neg U Amphetamin/Meth Scrn Pos H MDMA (Ecstasy) Screen Pos H U Benzodiazepines Scrn Neg Ur Cocaine Metabolite Neg U Marijuana (THC) Screen Pos H Ethyl Alcohol mg/dL < 3.0 12/03/18 04:18 WBC RBC Hgb Hct MCV MCH MCHC RDW Std Deviation RDW Coeff of Regis Plt Count MPV Immature Gran % (Auto) Neut % (Auto) Lymph % (Auto) Gila % (Auto) Eos % (Auto) Baso % (Auto) Immature Gran # (Auto) Neut # (Auto) Lymph # (Auto) Gila # (Auto) Eos # (Auto) Baso # (Auto) Sodium Potassium Chloride Carbon Dioxide Anion Gap BUN Creatinine Est Cr Clr Drug Dosing Est GFR ( Amer) Est GFR (Non-Af Amer) BUN/Creatinine Ratio Glucose POC Glucose 94 Calcium Total Bilirubin AST ALT Alkaline Phosphatase Total Protein Albumin Globulin Albumin/Globulin Ratio TSH Urine Color Urine Appearance Urine pH Ur Specific [place] Urine Protein Urine Glucose (UA) Urine Ketones Urine Blood Urine Nitrite Urine Bilirubin Urine Urobilinogen Ur Leukocyte Esterase Salicylates Urine Opiates Screen Ur Methadone, Qual Acetaminophen Urine Barbiturates Ur Phencyclidine (PCP) U Amphetamin/Meth Scrn MDMA (Ecstasy) Screen U Benzodiazepines Scrn Ur Cocaine Metabolite U Marijuana (THC) Screen Ethyl Alcohol mg/dL Current Inpatient Medications Current Inpatient Medications: Current Inpatient Medications Acetaminophen (Tylenol) 650 mg PO Q4H PRN PRN Reason: Headache or Minor Fever Stop: 01/01/19 21:56 Al Hydrox/Mg Hydrox/Simethicone (Maalox) 30 ml PO Q4H PRN PRN Reason: GI Upset Stop: 01/01/19 21:56 Aripiprazole (Abilify) 15 mg PO QAM [facility] Stop: 01/02/19 08:59 Last Admin: 12/03/18 08:52 Dose: 15 mg Documented by: Aspirin (Ecotrin Ectab) 81 mg PO BID [facility] Stop: 01/02/19 08:59 Last Admin: 12/03/18 08:51 Dose: 81 mg Documented by: Gabapentin (Neurontin) 800 mg PO QID [facility] Stop: 01/02/19 08:59 Last Admin: 12/03/18 08:51 Dose: 800 mg Documented by: Hydroxyzine HCl (Vistaril) 25 mg PO Q4H PRN PRN Reason: Anxiety Stop: 01/01/19 21:56 Hydroxyzine HCl (Vistaril) 50 mg PO HSZ PRN PRN Reason: Insomnia Stop: 01/01/19 21:56 Magnesium Hydroxide (Milk Of Magnesia) 30 ml PO DAILY PRN PRN Reason: Heartburn Stop: 01/01/19 21:56 Pantoprazole Sodium (Protonix) 40 mg PO BID [facility] Stop: 01/02/19 08:59 Last Admin: 12/03/18 08:51 Dose: 40 mg Documented by: Sodium Chloride (Butler Nasal) 1 - 2 sprays NA PRN PRN PRN Reason: Nasal Dryness/Congestion Stop: 01/01/19 21:56 Tolterodine Tartrate (Detrol) 2 mg PO BID [facility] Stop: 01/02/19 08:59 Last Admin: 12/03/18 08:51 Dose: 2 mg Documented by: CPT Code CPT Code Initial Hospital Care: [id number]
[2018-12-03 11:00] LABS: Albumin Level 4.3 gm/dl (3.4-5.0); BUN Creatinine Ratio 16.4 (10-20); Calcium 9.2 mg/dl (8.5-10.1); Creatinine Clr Calc Pharmacy 63.5 ml/min; Est GFR (African American) 66.9; Est GFR (Non-African American) 57.8; Potassium 3.4 mmol/L (3.5-5.1)
[2018-12-03] MEDS ORDERED: DIPHENOXYLATE/ATROPINE 2.5/0.025MG TAB PO PRN (11:00)
[2018-12-03 11:15] LABS: Albumin Globulin Ratio 1.3 (0.9-2); Bilirubin,Total 0.8 mg/dl (0.2-1); Globulin 3.4 gm/dl (2.5-4.0); Total Protein 7.7 gm/dl (6.4-8.2)
[2018-12-03] MEDS ORDERED: NICOTINE POLACRILEX 2 MG GUM MT PRN (12:04)
--- NOTE | 2018-12-03 14:23 | Progress Note ---
Date of Service December 03, 2018 Subjective Hospitalist consultation ordered and completed due to significantly elevated CK (4458) and elevated AST (120). Pt evaluated on hospitalist consult service and they are recommending transfer to the medical floor for management and IV fluids. We will continue to follow with the patient while on the medical floor. Consider if there is a need for re-admission to the [facility] once medically cleared. Appreciate hospitalist recommendations and ongoing management. Pt discharged from our unit, Dr. Marvin made aware as supervising physician. Results & Data Vital Signs (Past 12 Hours) Vital Signs Temp Pulse Resp BP 12/03/18 12:12 36.7 C 86 14 132/83 Lab Results 12/02/18 12/02/18 12/02/18 Range/Units 15:57 15:57 15:57 WBC 11.53 H (4.8-10.8) K/uL RBC 4.89 (4.7-6.1) M/uL Hgb 13.7 L (14.0-18.0) g/dL Hct 40.3 L (42-52) % MCV 82.4 (80-100) fL MCH 28.0 (25-34) pg MCHC 34.0 (32-36) g/dL RDW Std Deviation 48.1 H (36.4-46.3) fL RDW Coeff of [place] 16.3 H (11.5-14.5) % Plt Count 268 (130-400) K/uL MPV 10.2 (7.4-10.4) fL Immature Gran % (Auto) 0.3 % Neut % (Auto) 77.2 % Lymph % (Auto) 13.7 % [place] % (Auto) 8.1 % Eos % (Auto) 0.4 % Baso % (Auto) 0.3 % Immature Gran # (Auto) 0.03 H (0.00-0.02) K/uL Neut # (Auto) 8.90 H (1.4-6.5) K/uL Lymph # (Auto) 1.58 (1.2-3.4) K/uL [place] # (Auto) 0.93 H (0.11-0.59) K/uL Eos # (Auto) 0.05 (0-0.5) K/uL Baso # (Auto) 0.04 (0-0.2) K/uL Sodium 140 (136-145) mmol/L Potassium 3.7 (3.5-5.1) mmol/L Chloride 105 (98-107) mmol/L Carbon Dioxide 20 L (21-32) mmol/L Anion Gap 15.0 H (3-11) BUN 20 H (7-18) mg/dl Creatinine 1.47 H (0.6-1.4) mg/dl Est Cr Clr Drug Dosing Not Reportable Est GFR ( Amer) 60.9 Est GFR (Non-Af Amer) 52.6 BUN/Creatinine Ratio 13.4 (10-20) Glucose 81 (70-99) mg/dl POC Glucose (70-99) Calcium 9.3 (8.5-10.1) mg/dl Total Bilirubin 0.7 (0.2-1) mg/dl AST 93 H (15-37) U/L ALT 65 (12-78) U/L Alkaline Phosphatase 107 (45-117) U/L Total Creatine Kinase (39-308) U/L Total Protein 8.1 (6.4-8.2) gm/dl Albumin 4.6 (3.4-5.0) gm/dl Globulin 3.5 (2.5-4.0) gm/dl Albumin/Globulin Ratio 1.3 (0.9-2) TSH 1.330 (0.300-4.500) uIu/ml Urine Color Urine Appearance (Clear) Urine pH (4.5-7.5) Ur Specific [place] (1.000-1.030) Urine Protein (Negative) Urine Glucose (UA) (Negative) Urine Ketones (Negative) Urine Blood (Negative) Urine Nitrite (Negative) Urine Bilirubin (Negative) Urine Urobilinogen (Negative) Ur Leukocyte Esterase (Negative) Salicylates 3.2 (2.8-20) mg/dl Urine Opiates Screen (Neg) Ur Methadone, Qual (Neg) Acetaminophen < 2 L (10-30) ug/ml Urine Barbiturates (Neg) Ur Phencyclidine (PCP) (Neg) U Amphetamin/Meth Scrn (Neg) MDMA (Ecstasy) Screen (Neg) U Benzodiazepines Scrn (Neg) Ur Cocaine Metabolite (Neg) U Marijuana (THC) Screen (Neg) Ethyl Alcohol mg/dL (0-3) mg/dl 12/02/18 12/02/18 12/02/18 Range/Units 15:57 16:34 16:34 WBC (4.8-10.8) K/uL RBC (4.7-6.1) M/uL Hgb (14.0-18.0) g/dL Hct (42-52) % MCV (80-100) fL MCH (25-34) pg MCHC (32-36) g/dL RDW Std Deviation (36.4-46.3) fL RDW Coeff of [place] (11.5-14.5) % Plt Count (130-400) K/uL MPV (7.4-10.4) fL Immature Gran % (Auto) % Neut % (Auto) % Lymph % (Auto) % [place] % (Auto) % Eos % (Auto) % Baso % (Auto) % Immature Gran # (Auto) (0.00-0.02) K/uL Neut # (Auto) (1.4-6.5) K/uL Lymph # (Auto) (1.2-3.4) K/uL [place] # (Auto) (0.11-0.59) K/uL Eos # (Auto) (0-0.5) K/uL Baso # (Auto) (0-0.2) K/uL Sodium (136-145) mmol/L Potassium (3.5-5.1) mmol/L Chloride (98-107) mmol/L Carbon Dioxide (21-32) mmol/L Anion Gap (3-11) BUN (7-18) mg/dl Creatinine (0.6-1.4) mg/dl Est Cr Clr Drug Dosing Est GFR ( Amer) Est GFR (Non-Af Amer) BUN/Creatinine Ratio (10-20) Glucose (70-99) mg/dl POC Glucose (70-99) Calcium (8.5-10.1) mg/dl Total Bilirubin (0.2-1) mg/dl AST (15-37) U/L ALT (12-78) U/L Alkaline Phosphatase (45-117) U/L Total Creatine Kinase (39-308) U/L Total Protein (6.4-8.2) gm/dl Albumin (3.4-5.0) gm/dl Globulin (2.5-4.0) gm/dl Albumin/Globulin Ratio (0.9-2) TSH (0.300-4.500) uIu/ml Urine Color Yellow Urine Appearance Clear (Clear) Urine pH 5.5 (4.5-7.5) Ur Specific [place] 1.017 (1.000-1.030) Urine Protein Negative (Negative) Urine Glucose (UA) Negative (Negative) Urine Ketones 1+ H (Negative) Urine Blood Negative (Negative) Urine Nitrite Negative (Negative) Urine Bilirubin Negative (Negative) Urine Urobilinogen Negative (Negative) Ur Leukocyte Esterase Negative (Negative) Salicylates (2.8-20) mg/dl Urine Opiates Screen Neg (Neg) Ur Methadone, Qual Neg (Neg) Acetaminophen (10-30) ug/ml Urine Barbiturates Neg (Neg) Ur Phencyclidine (PCP) Neg (Neg) U Amphetamin/Meth Scrn Pos H (Neg) MDMA (Ecstasy) Screen Pos H (Neg) U Benzodiazepines Scrn Neg (Neg) Ur Cocaine Metabolite Neg (Neg) U Marijuana (THC) Screen Pos H (Neg) Ethyl Alcohol mg/dL < 3.0 (0-3) mg/dl 12/03/18 12/03/18 Range/Units 04:18 10:14 WBC (4.8-10.8) K/uL RBC (4.7-6.1) M/uL Hgb (14.0-18.0) g/dL Hct (42-52) % MCV (80-100) fL MCH (25-34) pg MCHC (32-36) g/dL RDW Std Deviation (36.4-46.3) fL RDW Coeff of Regis (11.5-14.5) % Plt Count (130-400) K/uL MPV (7.4-10.4) fL Immature Gran % (Auto) % Neut % (Auto) % Lymph % (Auto) % [place] % (Auto) % Eos % (Auto) % Baso % (Auto) % Immature Gran # (Auto) (0.00-0.02) K/uL Neut # (Auto) (1.4-6.5) K/uL Lymph # (Auto) (1.2-3.4) K/uL [place] # (Auto) (0.11-0.59) K/uL Eos # (Auto) (0-0.5) K/uL Baso # (Auto) (0-0.2) K/uL Sodium 136 (136-145) mmol/L Potassium 3.4 L (3.5-5.1) mmol/L Chloride 103 (98-107) mmol/L Carbon Dioxide 21 (21-32) mmol/L Anion Gap 11.0 (3-11) BUN 22 H (7-18) mg/dl Creatinine 1.36 (0.6-1.4) mg/dl Est Cr Clr Drug Dosing 63.5 Est GFR ( Amer) 66.9 Est GFR (Non-Af Amer) 57.8 BUN/Creatinine Ratio 16.4 (10-20) Glucose 95 (70-99) mg/dl POC Glucose 94 (70-99) Calcium 9.2 (8.5-10.1) mg/dl Total Bilirubin 0.8 (0.2-1) mg/dl AST 120 H (15-37) U/L ALT 75 (12-78) U/L Alkaline Phosphatase 104 (45-117) U/L Total Creatine Kinase 4458 H (39-308) U/L Total Protein 7.7 (6.4-8.2) gm/dl Albumin 4.3 (3.4-5.0) gm/dl Globulin 3.4 (2.5-4.0) gm/dl Albumin/Globulin Ratio 1.3 (0.9-2) TSH (0.300-4.500) uIu/ml Urine Color Urine Appearance (Clear) Urine pH (4.5-7.5) Ur Specific [place] (1.000-1.030) Urine Protein (Negative) Urine Glucose (UA) (Negative) Urine Ketones (Negative) Urine Blood (Negative) Urine Nitrite (Negative) Urine Bilirubin (Negative) Urine Urobilinogen (Negative) Ur Leukocyte Esterase (Negative) Salicylates (2.8-20) mg/dl Urine Opiates Screen (Neg) Ur Methadone, Qual (Neg) Acetaminophen (10-30) ug/ml Urine Barbiturates (Neg) Ur Phencyclidine (PCP) (Neg) U Amphetamin/Meth Scrn (Neg) MDMA (Ecstasy) Screen (Neg) U Benzodiazepines Scrn (Neg) Ur Cocaine Metabolite (Neg) U Marijuana (THC) Screen (Neg) Ethyl Alcohol mg/dL (0-3) mg/dl
--- NOTE | 2018-12-03 14:47 | Discharge Summary ---
Date of Service December 03, 2018 History of Present Illness Information was obtained from the patient, the 302 petition, and the medical record. He has a history of numerous medical hospitalizations, was seen by the psychiatric consult service multiple times in 2016, presented to the emergency room yesterday (12/02/2018) afternoon for mental health evaluation. His reported that he had been disorganized for the past 24 hours, was agitated, and delusional. She completed a 302 petition stating that he had not eaten or slept for almost 2 full days, was becoming increasingly anxious, paranoid, angry, delusional, and agitated. His external medication history also lists alprazolam 1 mg 3 times daily as needed, dextroamphetamine/amphetamine, and Fioricet. He was a limited historian, answering with short, sarcastic statements. His reported he has been disabled since 2005, has chronic neuropathic pain, and recently started vaping marijuana for his back pain. She reported an acute change in mental status over the past 24 hours, stating he was not acting himself, was not making sense, thought they were on a ship, and appeared frightened. He expressed concerns that people not in their house were able to hear them, and worries about his dog's health. He was uncooperative in the ER, at one point shredded his paper scrubs and was sitting in his room naked. He was pulling at tags on the bed mattress. His drug screen was positive for amphetamine/methamphetamine, MDMA, and THC. WBC and AST (93) were mildly elevated, BUN and creatinine were elevated (20 and 1.47), with an increased anion gap. UA showed 1+ ketones and was otherwise normal. Lumbar spine x-ray showed no acute abnormalities, but mild chronic superior endplate compression deformity of L1 and mild multilevel disc space narrowing. Head CT showed no acute abnormalities. EKG showed sinus tachycardia with a rate of 101 and QTC 433. Blood pressure was elevated and has been in the 150s /80s-90s. He reported he had been taking his medication as prescribed, and had recently started medicinal marijuana for chronic pain. He was unwilling for inpatient treatment, so was placed on a 302 involuntary commitment. He received Lorazepam and alprazolam in the ER. On admission he was continued on his reported home doses of aripiprazole 15 mg every morning, aspirin 81 mg twice daily, gabapentin 800 mg 4 times daily, and Detrol 2 mg twice daily. Alprazolam, bupropion, Fioricet, Adderall, and Cialis were held. On the unit, he has been restless, confused, nonsensical in his answers, picking at the bed sheets and said he thought he dropped a pill. He requested a snack, and then tried to drink the banana he was given, and required cues to drink from his cup and eats a banana. He was in and out of his room all night, thought he was leaving the hospital, was disoriented. He was agitated, and entered a female patient's room. He stated that he self caths, and was provided with supplies and was able to void a large quantity of urine, after which he was calmer. On my assessment, the patient states he became acutely confused either yesterday or the day before, stating "information that should have been very easy for me to get was confusing." He struggles to give any examples, stating "that is a hard question." He says he came to the hospital because "my wanted me to get checked out." He denies any recent stressors, states mood has been stable, and his chronic anxiety is unchanged, as he typically worries "about lots of things." He also reports chronic episodic insomnia, and admits that he did not sleep 2 nights prior to hospitalization, and denies any trigger for this. He states his confusion occurred shortly after starting medicinal marijuana for pain, stating he uses an unknown preparation via a vape. He does not know the ratio of THC/CBD, but states that within days of starting it, he developed auditory and visual hallucinations and paranoia. These have resolved since he was admitted to the hospital. He states he has not taken Xanax in about a week since he started the medical marijuana, and has not used Fioricet" a long time." He reports taking his scheduled medications as prescribed, and denies any recent changes. He reports poor p.o. intake in his state of confusion, but has been drinking fluids since admission. He reports a history of bipolar diagnosis, but states he has never been manic, then says "maybe I had a manic episode years ago, I don't know, I was really confused, didn't even know what month it was." He has no interest in therapy, stating "I tried it a long time ago, and it did not work out, it is good for some people but not for others." He requests to be moved to the medical floor, and explained that he is hospitalized psychiatrically on a 302 involuntary commitment. He is willing to have a family meeting with his . Physical Exam Vital Signs (Past 24 Hours) Last Vital Signs Temp 36.7 C 12/03/18 14:31 Pulse 86 12/03/18 14:31 Resp 14 12/03/18 14:31 BP 132/83 12/03/18 14:31 Pulse Ox 97 12/03/18 14:31 Principal Diagnosis Mood disorder, Altered Mental Status Psychiatric Data 58-year-old male with PMH of transverse myelitis, impaired pulmonary function, migraine, BPH, ADHD, depression or bipolar disorder who was brought to the ED by his due to acute onset of confusion, paranoia, disorganization, hallucinations, and agitation. Onset of symptoms occurred over the course of 24-hours. 302 petitioning statement was completed by due to concern with patient not sleeping and hardly eating for 2 days. 302 was completed, and patient was referred to [address] [place] [address] for inpatient psychiatric admission. Pt seen for initial H&P, in which history suggests AMS with previous episodes of rhabdomyolysis. Symptoms reported were felt to be more suggestive of a delirium than related to a primary mental health condition. Hospitalist consultation was place due to total CK of 4458 and AST of 120. It was determined patient would benefit from transfer to the medical floor for closer observation and IV fluids. Discussed case with MACHINE STRIPER for hospitalist team who will be admitting patient. Will plan to reassess at time of medical clearance if patient requires ongoing inpatient mental health treatment. Dr. Marvin, admitting psychiatrist, was made aware of updates and plan for patient to be transferred from the unit. Day of Discharge Assessment Pt seen for admission H&P by Dr. Marvin, review of labs brought concern for elevated AST and total CK. Hospitalist consultation was requested to determine need for additional intervention, especially given history of altered mental status in the context of previous episodes of rhabdomyolysis. Pt seen by hospitalist, who was recommending transfer to the medical floor for closer observation/management and initiation of IV fluids. Agree with this recommendation, as patient's acute mental status change is concerning for possible delirium, and further medical work-up can further be pursued on the medical floor. Discharge orders placed, and patient transported. Will follow along with case, with readmission to U if necessary after medically cleared. It is more likely that medical treatment may clear what appears to be more suggestive of delirium, and patient may not require readmission for inpatient psychiatric treatment. Transition of Care Transition Of Care Record: was reviewed with the patient Advance Directives Advance Directives Information Provided: Yes Advance Directives: No Mental Health Advance Directive: No Advance Directives on File: No Living Will: No Power of Rehab Rn: No Advance Directives Reason:: Declines as Mental Health Visit. Risk Factors Assessment Male: Yes : Yes Do You Have Access To A Gun?: No (Patient denies, but he and previously reported there were guns in the home. ) Health Problems: Yes Mental Health Diagnoses: Yes Substance Use Disorders: No (But on multiple controlled substances) Previous Attempt: No Family History of Suicide: No Previous Psychiatric Hospitalization: No Hopelessness: No Smoker: Yes Protective Factors Assessment : Yes Responsible for Young Children: No Employed: No Supportive Family: Yes Tobacco Cessation at Discharge Tobacco Cessation Medication Prescribed at Discharge: Offered & Prescribed (available on the medical floor if indicated) Total Time Total Time Spent: Less Than 30 Minutes Total Time Includes: Discharge Planning, Medication Reconciliation and Communication with other providers Discharge Data Consultations 12/03/18 12:24 Consult Hospitalist Routine Lab Results 12/02/18 12/02/18 12/02/18 15:57 15:57 15:57 WBC 11.53 H RBC 4.89 Hgb 13.7 L Hct 40.3 L MCV 82.4 MCH 28.0 MCHC 34.0 RDW Std Deviation 48.1 H RDW Coeff of Regis 16.3 H Plt Count 268 MPV 10.2 Immature Gran % (Auto) 0.3 Neut % (Auto) 77.2 Lymph % (Auto) 13.7 [place] % (Auto) 8.1 Eos % (Auto) 0.4 Baso % (Auto) 0.3 Immature Gran # (Auto) 0.03 H Neut # (Auto) 8.90 H Lymph # (Auto) 1.58 [place] # (Auto) 0.93 H Eos # (Auto) 0.05 Baso # (Auto) 0.04 Sodium 140 Potassium 3.7 Chloride 105 Carbon Dioxide 20 L Anion Gap 15.0 H BUN 20 H Creatinine 1.47 H Est Cr Clr Drug Dosing Not Reportable Est GFR ( Amer) 60.9 Est GFR (Non-Af Amer) 52.6 BUN/Creatinine Ratio 13.4 Glucose 81 POC Glucose Calcium 9.3 Total Bilirubin 0.7 AST 93 H ALT 65 Alkaline Phosphatase 107 Total Creatine Kinase Total Protein 8.1 Albumin 4.6 Globulin 3.5 Albumin/Globulin Ratio 1.3 TSH 1.330 Urine Color Urine Appearance Urine pH Ur Specific [place] Urine Protein Urine Glucose (UA) Urine Ketones Urine Blood Urine Nitrite Urine Bilirubin Urine Urobilinogen Ur Leukocyte Esterase Salicylates 3.2 Urine Opiates Screen Ur Methadone, Qual Acetaminophen < 2 L Urine Barbiturates Ur Phencyclidine (PCP) U Amphetamin/Meth Scrn MDMA (Ecstasy) Screen U Benzodiazepines Scrn Ur Cocaine Metabolite U Marijuana (THC) Screen Ethyl Alcohol mg/dL 12/02/18 12/02/18 12/02/18 15:57 16:34 16:34 WBC RBC Hgb Hct MCV MCH MCHC RDW Std Deviation RDW Coeff of Regis Plt Count MPV Immature Gran % (Auto) Neut % (Auto) Lymph % (Auto) [place] % (Auto) Eos % (Auto) Baso % (Auto) Immature Gran # (Auto) Neut # (Auto) Lymph # (Auto) [place] # (Auto) Eos # (Auto) Baso # (Auto) Sodium Potassium Chloride Carbon Dioxide Anion Gap BUN Creatinine Est Cr Clr Drug Dosing Est GFR ( Amer) Est GFR (Non-Af Amer) BUN/Creatinine Ratio Glucose POC Glucose Calcium Total Bilirubin AST ALT Alkaline Phosphatase Total Creatine Kinase Total Protein Albumin Globulin Albumin/Globulin Ratio TSH Urine Color Yellow Urine Appearance Clear Urine pH 5.5 Ur Specific [place] 1.017 Urine Protein Negative Urine Glucose (UA) Negative Urine Ketones 1+ H Urine Blood Negative Urine Nitrite Negative Urine Bilirubin Negative Urine Urobilinogen Negative Ur Leukocyte Esterase Negative Salicylates Urine Opiates Screen Neg Ur Methadone, Qual Neg Acetaminophen Urine Barbiturates Neg Ur Phencyclidine (PCP) Neg U Amphetamin/Meth Scrn Pos H MDMA (Ecstasy) Screen Pos H U Benzodiazepines Scrn Neg Ur Cocaine Metabolite Neg U Marijuana (THC) Screen Pos H Ethyl Alcohol mg/dL < 3.0 05/06/19 05/06/19 04:18 10:14 WBC RBC Hgb Hct MCV MCH MCHC RDW Std Deviation RDW Coeff of Regis Plt Count MPV Immature Gran % (Auto) Neut % (Auto) Lymph % (Auto) [place] % (Auto) Eos % (Auto) Baso % (Auto) Immature Gran # (Auto) Neut # (Auto) Lymph # (Auto) [place] # (Auto) Eos # (Auto) Baso # (Auto) Sodium 136 Potassium 3.4 L Chloride 103 Carbon Dioxide 21 Anion Gap 11.0 BUN 22 H Creatinine 1.36 Est Cr Clr Drug Dosing 63.5 Est GFR ( Amer) 66.9 Est GFR (Non-Af Amer) 57.8 BUN/Creatinine Ratio 16.4 Glucose 95 POC Glucose 94 Calcium 9.2 Total Bilirubin 0.8 AST 120 H ALT 75 Alkaline Phosphatase 104 Total Creatine Kinase 4458 H Total Protein 7.7 Albumin 4.3 Globulin 3.4 Albumin/Globulin Ratio 1.3 TSH Urine Color Urine Appearance Urine pH Ur Specific [place] Urine Protein Urine Glucose (UA) Urine Ketones Urine Blood Urine Nitrite Urine Bilirubin Urine Urobilinogen Ur Leukocyte Esterase Salicylates Urine Opiates Screen Ur Methadone, Qual Acetaminophen Urine Barbiturates Ur Phencyclidine (PCP) U Amphetamin/Meth Scrn MDMA (Ecstasy) Screen U Benzodiazepines Scrn Ur Cocaine Metabolite U Marijuana (THC) Screen Ethyl Alcohol mg/dL Hospital Course (1) Acute psychosis: 12/03 -patient reports auditory and visual hallucinations and paranoia in the context of starting medicinal marijuana this past week. His psychotic symptoms are largely cleared this morning, and we discussed the risks of cannabis use, including psychosis, and the recommendations that he not use THC products for his chronic pain. -We will need to coordinate care with Dr. Hernandez, his outpatient physician. -Encephalopathy may be multifactorial, as admission labs also show impaired renal function with elevated BUN and creatinine. Will recheck those today, as well as creatinine kinase and AST, which was significantly elevated. AST has gone up further 120, and total creatinine kinase is elevated at 4458. Creatinine has come down and is 1.36, but BUN is 22. Will consult hospitalist service for assistance. (2) Mood disorder: 12/03 -historical diagnosis of bipolar disorder, but patient denies a history of manic episodes. He does think aripiprazole is helpful for mood, so will continue his home dose. Bupropion, buspirone, and Adderall are being held due to altered mental status. -Order fasting lipid profile and glucose for monitoring on an atypical antipsychotic. -Coordinate care with outpatient psychiatrist, and send records. -Patient informed that he is admitted on a 302 involuntary commitment, and that that means he cannot legally own, purchase, or possess firearms in the [facility]. We will need to confirm with his that there are no guns in t he home. (3) Cannabis abuse: 12/03 -patient reports he recently started medicinal marijuana for pain. Will discontinue alprazolam due to potential interactions, hold Fioricet, and coordinate care with his outpatient physician as above. He appears very sensitive to elevate and psychosis from hallucinogens, so would recommend he not use THC products. (4) Transverse myelitis: Follow up with outpatient neurologist, send records to coordinate care. Continue gabapentin. (5) Urinary retention: Continue self-catheterization. (6) Tobacco abuse: 12/03 -offer nicotine gum and patch as needed for cravings, smoking cessation education, and outpatient follow-up with PCP. (7) BPH (benign prostatic hyperplasia): Continue home dose of Detrol. (8) Migraine: Continue home dose of triptan, and follow-up with neurologist. Hold Fioricet due to altered mental status. Post Discharge Appointments Primary Care Physician Name Of Family Doctor: Rupinder Therapist Name of Therapist: Denies Biological Technical Officer Name of Biological Technical Officer: Denies Smoking Cessation Counseling Tobacco Cessation Medication Prescribed at Discharge: Offered & Prescribed (available on the medical floor if indicated) Discharge Plan Discharge Items Patient Disposition: Transfer Acute Care Hospital Reason For Visit: PSYCHOSIS Discharge Diagnosis: Acute Psychosis Condition: Serious Discharge Goals: Decrease discomfort, Diagnostic testing and Improve disease control Activity: As commented below Activity Comment: as per primary medical team Non-emergency contact: Primary Care Provider, Hospitalist, Psychiatrist and Therapist Call non-emergency contact if: you have any medication questions and your symptoms worsen Follow-up/Referrals: Darren Flores MD [Primary Care Provider] - Diet: Regular Addtl Provider Instructions: SPECIAL CARE INSTRUCTIONS: 1. Follow through with your scheduled aftercare appointments. If unable to keep an appointment, please call to reschedule. 2. Take your medication only as prescribed. Medication should not be changed or stopped without the approval of your doctor. In the event of worsening symptoms or concerns about side effects, contact your doctor immediately. 3. Utilize new healthy coping skills, anger management skills, and stress management skills learned during your hospitalization. Journal feelings and process them with a support person. Identify stressors or situations that may result in relapse, deterioration or inappropriate behaviors and develop a plan to deal with those issues. 4. If your coping skills are ineffective and you are in crisis, contact your outpatient providers for direction. If unable to reach your providers, please call the CAN HELP LINE AT or go to the closest Emergency Room. 5. Avoid alcohol and un-prescribed drugs. 6. You have been provided with the Mental Health Advance Directives Pamphlet for your review. AFTERCARE APPOINTMENTS: * Please call your insurance company prior to your scheduled appointment to confirm your aftercare providers are covered. Take your insurance information to your appointments. WHO TO CALL AND WHEN: Medical Emergencies: For questions or emergencies related to your hospital stay, please contact the Inpatient Behavioral Health Unit at [phone]. A produce service team member is on-call 20/02 for the Behavioral Health Unit for emergencies At any time you feel your situation is an emergency, you may also call 911 immediately. Your Doctors Instructions noted above were prepared by provider Kristien Thornton PA-C. Prescriptions: New diphenoxylate-atropine 2.5-0.025 mg Tablet 1 tab PO Q8H PRN (Reason: diarrhea) 30 Days Qty: 30 RF: 0 Continued aripiprazole [Abilify] 15 mg Tablet 15 mg PO QAM RF: 0 gabapentin 400 mg Capsule 800 mg PO QID RF: 0 pantoprazole 40 mg Tablet,Delayed Release (Dr/Ec) 40 mg PO BID RF: 0 rizatriptan 10 mg Tablet 10 mg PO DIRECTED PRN (Reason: Headache) RF: 0 tolterodine [Detrol] 2 mg Tablet 2 mg PO BID RF: 0 aspirin [Ecotrin Low Strength] 81 mg Tablet,Delayed Release (Dr/Ec) 81 mg PO BID Qty: 84 RF: 0 Discontinued [id number]-[id number] [Fioricet] 50-300-40 mg Capsule 1 - 2 tab PO BID PRN (Reason: Headache) RF: 0 alprazolam 1 mg Tablet 1 mg PO TID PRN (Reason: Anxiety) RF: 0 bupropion HCl [Wellbutrin SR] 200 mg Tablet Sustained-Release 12 Hr 200 mg PO BID RF: 0 tadalafil [Cialis] 5 mg Tablet 5 mg PO DAILY PRN (Reason: SEXUAL DYSFUNCTION) RF: 0 dextroamphetamine-amphetamine 30 mg capsule,extended release 24hr 30 mg PO QAM RF: 0 buspirone 30 mg tablet 30 mg PO TID RF: 0 testosterone cypionate 200 mg/mL oil RF: 0 No Action alprazolam 1 mg tablet 1 mg PO TID PRN (Reason: Anxiety) RF: 0 buspirone 30 mg tablet 30 mg PO TID RF: 0 testosterone cypionate 200 mg/mL oil 100 mg IM Q10D RF: 0 dextroamphetamine-amphetamine 30 mg capsule,extended release 24hr 30 mg PO DAILY RF: 0 bupropion HCl 200 mg tablet sustained-release 12 hr 200 mg PO BID RF: 0 tadalafil 5 mg tablet 5 mg PO DAILY PRN (Reason: Sexual Activity) RF: 0 Stand-Alone Forms: [facility] Discharge Orders: Discharge Order (Routine); Ordered 12/03/18 Ordered By: Kristine Thornton Admission Data Admit Date/Time: 12/02/18 21:58 Attending Provider: Roxi Marvin Admit Provider: Lin Deleon Primary Care Provider: Darren Flores Other Providers: Venu Fulton ; Bakari Campbell ; Liam Lamar ; Bree Sellers ; Amanda Michel ; Huma Lawler ; Kristen Ngo ; Pedro Guaman S ; Bright Sánchez ; Chavo Puckett ; Calvin Bass ; Hortencia Downs S ; Lucy Richey H ; Angela Delgado ; Markell Suero ; Juan Carlos Garcia ; Viridiana Morales ; Rehan Madison ; Monet Moreira ; Juan Carlos Brennan ; Manuela Phillips Service: Psychiatry Other Interventions: Discharge Summary Assessment (RN) Last Done: 12/03/18 14:31 PSY Interdisciplinary Discharge Planning Last Done: 12/03/18 14:54 Pending Studies at Discharge: Yes Studies:: Fasting glucose and lipid panel DC Date/Time DO NOT enter until pt leaves facility: 12/03/18 15:02
[2018-12-05 12:15] LABS: Amphetamine Urine, Confirm 1860 NG/ML (CUTOF=250); Marijuana Quant, GCMS Urine 266 NG/ML (CUTOFF=5)
== END 2018-12-03 15:02 | disposition short-term general hospital (02) | DRG 885 ==
LOC: ED 15:37 → 3S 21:58

== ENCOUNTER 2018-12-03 13:52 | Inpatient (IN) ==
--- NOTE | 2018-12-03 15:49 | History & Physical Report ---
Date of Service December 03, 2018 Assessment & Plan (1) Rhabdomyolysis: -Admit to [facility] medicine consulted by Dr. Marvin in mental health unit for evaluation of elevated CK -Patient does have history of elevated CK in the past which was felt to be secondary to transverse myelitis in combination with acute illness -Total CK found to be 4458 today -Possibly secondary to recent medical marijuana use and/or sedentary lifestyle, poor p.o. intake -Renal functions normal -IVF, follow CK levels (2) Elevated AST (SGOT): -AST noted to be 120 -Other LFTs noted to be WNL -No history of alcohol abuse, no new medications aside from medical marijuana -Possibly secondary to dehydration /recent addition of medical marijuana -Reevaluate with a.m. labs, consider GI consult (3) Depression: (4) ADHD: (5) Bipolar disorder: -As per discussion with Kristine Thornton PA-C, will continue Abilify only for now and continue to hold alprazolam, bupropion, buspirone, Adderall as per mental health admission yesterday -Mental health team to follow while inpatient (6) Transverse myelitis: -Continue gabapentin (7) GERD (gastroesophageal reflux disease): -Continue PPI (8) DVT prophylaxis: -SQ heparin History of Present Illness Chief Complaint: Elevated CK Primary Care Provider: Darren Flores MD 58-year-old male who was evaluated in the mental health unit by request of Dr. Marvin for evaluation of elevated total CK. Patient was admitted to their unit on 12/02 under an involuntary 302. When asking patient history, he states, " Don't you have access to all this information? I am tired of time the same story over and over." Per the mental health admission H&P yesterday, patient was started on medical marijuana about 1 week ago. His reported that he had been disorganized, agitated, and delusional for the 24 hours leading up to his ER presentation yesterday. He also had not eaten or slept for almost 2 days. Patient was admitted to the mental health unit for acute psychosis and had marked improvement in his mental status. This morning, labs were checked including a total CK that was found to be 4458. At the time my exam, I observed the patient walking back from the bathroom without any difficulty. When attempting to obtain history from the patient, he was rather short with his answers. He denies chest pain shortness of breath. Reports a poor appetite but denies nausea, vomiting, abdominal pain, diarrhea. No fevers or chills. He denies lightheadedness, dizziness, diaphoresis, syncopal events. He has chronic low back pain which is unchanged from baseline. Reports his urine has been darker in color for the past 1 week but denies dysuria. He does report to being sedentary recently. Allergies Allergy/AdvReac Type Severity Reaction Status Date / Time Cipro Allergy Intermediate RASH Verified 01/05/18 13:07 ciprofloxacin Allergy Intermediate RASH Verified 08/06/18 23:01 Penicillins Allergy Intermediate RASH Verified 08/06/18 23:01 Home Medications Home Medications Medication Instructions Recorded Confirmed Type aripiprazole [Abilify] 15 mg PO QAM 05/25/18 12/03/18 History gabapentin 800 mg PO QID 05/25/18 12/03/18 History pantoprazole 40 mg PO BID 05/25/18 12/03/18 History rizatriptan 10 mg PO DIRECTED PRN 05/25/18 12/03/18 History tolterodine [Detrol] 2 mg PO BID 06/12/18 12/03/18 History aspirin [Ecotrin Low Strength] 81 mg PO BID #84 tab 06/13/18 12/03/18 Rx alprazolam 1 mg PO TID PRN 12/03/18 12/03/18 History bupropion HCl 200 mg PO BID 12/03/18 12/03/18 History buspirone 30 mg PO TID 12/03/18 12/03/18 History dextroamphetamine-amphetamine 30 mg PO DAILY 12/03/18 12/03/18 History diphenoxylate-atropine 1 tab PO Q8H PRN 30 Days #30 tab 12/03/18 12/03/18 Rx tadalafil 5 mg PO DAILY PRN 12/03/18 12/03/18 History testosterone cypionate 100 mg IM Q10D 12/03/18 12/03/18 History Past Med/Surg History Medical History GERD (gastroesophageal reflux disease) (Chronic) Bipolar disorder (Chronic) Depression (Chronic) ADHD (Chronic) Hypogonadism (Chronic) BPH (benign prostatic hyperplasia) (Chronic) Sepsis due to pneumonia (Resolved) Admitted @ [facility] 03/2017, had subsequent pulm w/u and f/u for persistently declining diffusion capacity on PFTs Abnormal PFTs (Chronic) "low but consistent decline in his pulmonary function/diffusion capacity since 2008." Transverse myelitis (Chronic) H/O in 2005. 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 Urinary retention (Chronic) Low testosterone (Chronic) Tobacco abuse (Chronic) Chronic low back pain (Chronic) GERD (gastroesophageal reflux disease) (Chronic) Surgical History History of total right knee replacement (Chronic) S/P decompression of ulnar nerve at elbow (Resolved) Family History Sister Kidney disease Social History Preferred Language: Syrian Communication Ability: Effective Visual Impairment: No Limitations Beliefs That Will Affect Care: None Current Living Situation: Spouse Feels Safe at Home: Yes Smoking Status: Former smoker Tobacco Type: cigarettes Cigarettes Per Day: 1 PACK PER DAY x 20+ Hx Alcohol Use: No Hx Substance Use: No Review of Systems Review of Systems: ROS per HPI, all other systems reviewed and negative Physical Exam Constitutional: WD/WN, vitals as above Eyes: PERRL, conjunctivae normal, anicteric sclerae ENMT: external ear and nose normal, oropharynx normal Respiratory: normal respiratory effort, lungs clear to auscultation Cardiovascular: Rate/Rhythm: regular rate and regular rhythm Vessels: normal peripheral pulses Extremities: no edema Gastrointestinal (Abdomen): normal bowel sounds, soft, nontender, no hepatosplenomegaly Musculoskeletal: Extremities: no cyanosis and no clubbing BLUE strength 5/5; RLE strength 5/5, LLE strength 4/5 (chronic per patient) Skin: no rashes, warm and dry Neurologic: PERRL, EOMI, accommodation nl, no face palsy, no dysarthria Psychiatric: Orientation: alert and oriented x 3 Affect: + flat affect Results & Data Vital Signs (Past 12 Hours) Vital Signs Temp Pulse Resp BP Pulse Ox 12/03/18 15:26 36.6 C 87 20 137/82 95 Laboratory Results Pertinent labs from today's CMP: Na+ 136 K+ 3.4 BUN 22 Creatinine 1.36 Total bilirubin 0.8 AST 120 ALT 75 Alk phos 104 Total CK 4458 Code Status & VTE Plan Code Status Patient is a full code as per my discussion with him. VTE Prophylaxis Plan VTE Prophylaxis will be ordered: Yes Supervising Physician Co-Signing Physician Notes Pt was seen and examined. Agreed with Amanda VO exam, assessment and plan. 58 yo with hx of mood disorder, ADHD, chronic pain was recently starting on medical marijuana about 1 week was admitted to the mental health unit for acute psychosis. [facility]ist was consulted for elevated CK level above the 4K. Pt said that he has not been very active in the past week where he only stayed on his bed. he said that his urine has been dark. Denies any chest pain, palpitation, dizziness and SOB. General- flat affect Head- atraumatic Eyes- PERRL, EOMI, ENT- oropharynx clear Neck- supple, no JVD Lungs- clear to auscultation Heart- regular rhythm; no murmur Abdomen- normal bowel sounds, soft, nontender Extremities- no calf tenderness Neuro- alert, oriented x 3; PERRL, EOMI; no facial palsy; no dysarthria, flat affect Skin- warm & dry A\\P Rhabdomyolysis Possible due to recent medical marijuana use and/or sedentary lifestyle and dehydration CK level above 4458 Will start on IVF fluid Monitor CK level and BMP Elevated Liver Enzymes Possible related to dehydration Avoid hepatotoxic agents Monitor Liver enzymes, if worsening, will consult GI DVT px on heparin subq CODE status Full code
[2018-12-03] MEDS ORDERED: POTASSIUM CHLORIDE 20 MEQ TABCR PO STA (16:00)
[2018-12-03 17:07] LABS: Hematocrit (blood only) 39.1 % (42-52); Hemoglobin 13.7 g/dL (14.0-18.0); Mean Corpuscular Volume 81.8 fL (80-100); Mean Platelet Volume 9.9 fL (7.4-10.4); Platelet Count 256 K/uL (130-400); RDW Coefficient of Variation 16.5 % (11.5-14.5); RDW Standard Deviation 48.8 fL (36.4-46.3); Red Blood Count 4.78 M/uL (4.7-6.1); White Blood Count 11.55 K/uL (4.8-10.8)
[2018-12-03 17:15] LABS: INR 1.1 (0.9-1.1)
[2018-12-03] MEDS: SODIUM CHLORIDE 0.9% 1000ML 1,000 ML IV SCH (17:23)
[2018-12-03] MEDS: GABAPENTIN 400 MG CAP PO SCH ×2 (17:23→21:20)
[2018-12-03] MEDS: ASPIRIN 81 MG ECTAB PO SCH (21:20)
[2018-12-03] MEDS: TOLTERODINE TARTRATE 2 MG TAB PO SCH (21:20)
[2018-12-03] MEDS: PANTOprazole 40 MG TAB PO SCH (21:20)
[2018-12-04] MEDS: SODIUM CHLORIDE 0.9% 1000ML 1,000 ML IV SCH ×4 (00:13→19:33)
[2018-12-04] MEDS: HEPARIN SOD 5,000 UNIT/0.5 ML VIAL SQ SCH ×4 (00:13→21:14)
[2018-12-04] MEDS ORDERED: LOPERAMIDE HCL 2 MG CAP PO STA (04:48)
[2018-12-04] MEDS: ARIPiprazole 15 MG TAB PO SCH (09:04)
[2018-12-04] MEDS: PANTOprazole 40 MG TAB PO SCH ×2 (09:04→21:14)
[2018-12-04] MEDS: GABAPENTIN 400 MG CAP PO SCH ×4 (09:04→21:14)
[2018-12-04] MEDS: ASPIRIN 81 MG ECTAB PO SCH ×2 (09:04→21:14)
[2018-12-04] MEDS: TOLTERODINE TARTRATE 2 MG TAB PO SCH ×2 (09:04→21:14)
[2018-12-04 09:54] LABS: Albumin Level 3.5 gm/dl (3.4-5.0); BUN Creatinine Ratio 15.3 (10-20); Calcium 8.4 mg/dl (8.5-10.1); Est GFR (African American) 81.1
[2018-12-04 09:57] LABS: Bilirubin,Total 0.7 mg/dl (0.2-1); Globulin 3.4 gm/dl (2.5-4.0); Total Protein 6.9 gm/dl (6.4-8.2)
[2018-12-04 10:35] LABS: Potassium 3.7 mmol/L (3.5-5.1)
--- NOTE | 2018-12-04 11:36 | Hospitalist Progress Note ---
Date of Service December 04, 2018 Assessment & Plan (1) Rhabdomyolysis: -Hospital medicine consulted by Dr. Mravin in mental health unit for evaluation of elevated CK -Patient does have history of elevated CK in the past which was felt to be secondary to transverse myelitis in combination with acute illness -Total CK found to be 4458 now 1400 -Possibly secondary to recent medical marijuana use and/or sedentary lifestyle, poor p.o. intake -Renal functions normal -IVF, follow CK levels, renal function improving (2) Elevated AST (SGOT): -No history of alcohol abuse, no new medications aside from medical marijuana -Possibly secondary to dehydration /recent addition of medical marijuana (3) Depression: (4) ADHD: (5) Bipolar disorder: -As per discussion with Kristine Thornton PA-C, will continue Abilify only for now and continue to hold alprazolam, bupropion, buspirone, Adderall as per mental health admission yesterday -Mental health team to follow while inpatient (6) Transverse myelitis: -Continue gabapentin (7) GERD (gastroesophageal reflux disease): -Continue PPI (8) DVT prophylaxis: -SQ heparin DC 1-2 days, monitor CK and Cr ROS-No Headache, No Visual Changes, No Nausea, No Vomiting, No Fever, No Chills, No Neck Pain or Stiffness, No Chest Pain, No Palpitations, No SOB, No DE PAZ, No Cough, No Sputum, No Wheezing, No Abdominal Pain, No Diarrhea, No Hematemesis, No Hemoptysis, No Unexpected Weight Loss, No Flank pain, No Melena, No H ematochezia, No Frequency, No Urgency, No Burning, No Hematuria, No Rashes, No Diaphoresis. Appetite is Normal Physical Exam Gen-AAO x 3, NAD, Afebrile Head-NCAT, EOMI, PERRLA, Anicteric Sclera, No Posterior Pharyngeal Erythema Neck-Supple, No JVD, No Thyromegaly, No Masses, No LAD, No Bruits Lungs-Clear to Auscultation Bilaterally, No Rales, No Rhonchi, No Wheezing, No Crepitus Chest-No S4, +S1, +S2, No S3, No Murmurs, No Rubs, No Gallops, No Ectopy Abdomen-Soft, Bowel Sounds Present, Non Tender, Non Distended, No Hepatomegaly, No Splenomegaly, No Palpable Masses, No Rebound, No Rigidity, No Guarding Musculoskeletal-Full Range of Motion Bilaterally, No CVAT Extremities-No Cyanosis, No Clubbing, No Edema Nuero-Cranial Nerves II-XII grossly intact, Motor WNL, DTRs WNL, Strength WNL, Non Focal Psych-Normal Mood Results & Data Vital Signs (Past 12 Hours) Vital Signs Temp Pulse Resp BP Pulse Ox 12/04/18 07:00 36.6 C 79 18 126/81 95 Current Diagnoses Bipolar disorder, unspecified (12/03/18) Major depressive disorder, single episode, unspecified (12/03/18) Attention-deficit hyperactivity disorder, unspecified type (12/03/18) Acute transverse myelitis in demyelinating disease of central nervous system (12/03/18) Gastro-esophageal reflux disease without esophagitis (12/03/18) Rhabdomyolysis (12/03/18) Nonspecific elevation of levels of transaminase and lactic acid dehydrogenase [LDH] (12/03/18) Allergies Cipro Allergy (Intermediate, Verified 01/05/18 13:07) RASH ciprofloxacin Allergy (Intermediate, Verified 08/06/18 23:01) RASH Penicillins Allergy (Intermediate, Verified 08/06/18 23:01) RASH Height/Weight/Isolation Height 5 ft 6 in Weight 85.8 kg Chemistry 12/04/18 12/04/18 08:43 10:10 Sodium 139 Potassium 3.7 Chloride 108 H Carbon Dioxide 21 Anion Gap 10.0 BUN 18 Creatinine 1.16 Glucose 83
--- NOTE | 2018-12-04 12:37 | Psychiatric Consultation ---
Date of Consultation December 04, 2018 Impression / Recommendations Impression 58-year-old male admitted medically from the behavioral health unit due to elevated CK and AST. He is being treated by the hospitalist service for rhabdomyolysis and his AMS appears to be clearing. He is able to participate in a productive conversation with this provider and denies any mood or anxiety concerns. Patient states that he does not feel confused any longer and denies any auditory or visual hallucinations. He remains on a 302, which was completed prior to his admission to the behavioral health unit. We will follow along for recommendations and observations during his medical stay. It is unclear at this time if patient will require readmission to the behavioral health unit for ongoing inpatient psychiatric treatment, as his altered mental status is improving and he is denying any ongoing psychiatric criteria. Several medications (Adderall, Xanax, buspirone, and bupropion) were discontinued upon initial admission to the psychiatric unit. At this time we are recommending continuation of the only Abilify 15 mg daily as patient had reported this was helpful for mood. We are suggesting the patient follow up with his outpatient psychiatric provider after discharge to discuss the other medications, as well as to discuss his interaction with the addition of medical marijuana. We will attempt to make contact with prescriber of the medical marijuana to ensure they are aware of patient's condition. At this time the patient's altered mental status was likely related to delirium which is suspected to be multifactorial in nature. Differential includes delirium related to medical conditions and rhabdomyolysis, substance-induced psychosis, bipolar disorder, or depressive disorder with psychotic features. At this time patient is reporting stability. We are available for any further needs or recommendations as patient continues his treatment on the hospitalist service. Dr. Roxi Marvin was directly involved in review and discussion of the patient's case and participated in medical decision making regarding treatment recommendations. CPT Code Initial Consultation: 60342 Psych History Identifying Data 58-year-old male admitted medically for rhabdomyolysis and elevated AST. Pt initially admitted to the behavioral health unit on a 302 due to what was believed to be psychosis. His medical concerns led to transfer to hospitalist service. He is being followed on psychiatric consult service for recommendations and to determine if readmission for inpatient psychiatric treatment is necessary after medical clearance. Information is obtained from hospitalist documentation, H&P completed by psychiatrist, and the patient himselfall are considered to be reliable at this time. Chief Complaint "Ok. I feel weak." History of Present Illness Noe Solano is a 58-year-old male admitted to hospital service from a behavioral health unit due to elevated CK and AST. Patient was initially admitted for inpatient psychiatric treatment on an involuntary commitment with petitioning statement completed by his . There was concern regarding patient's acute change in behavior and at the time of presentation to the emergency department it was felt that patient was at risk of harm to himself without psychiatric treatment. He remains on a completed 302, although his psychosis and confusion have been clearing. Please see H&P completed by psych iatrist for further details regarding his brief stay on the behavioral health unit. Patient is seen today on psychiatric consult service as he remains on a 302 involuntary commitment. He appears fatigued today, but is able to participate in a productive conversation with this provider. Patient states that he feels "weak." He denies any ongoing confusion or concerns related to mood or anxiety. Patient denies any active hallucinations, both auditory and visual. He also denies any suicidal or homicidal ideation since his transfer. Patient was continued on aripiprazole only at time of his admission, due to concern other psychiatric medications and the recent addition of medical marijuana may have been contributing to his altered mental status. Patient denies any concerns related to medication adjustments, and denies any needs from her service at this time. Reviewed with patient that we will continue to speak with him during his medical admission, and at time of medical clearance will determine if our recommendation is for discharge to home or ongoing inpatient psychiatric treatment. Patient verbalized understanding of this conversation and denied any further questions. Allergies Allergy/AdvReac Type Severity Reaction Status Date / Time Cipro Allergy Intermediate RASH Verified 01/05/18 13:07 ciprofloxacin Allergy Intermediate RASH Verified 08/06/18 23:01 Penicillins Allergy Intermediate RASH Verified 08/06/18 23:01 Home Medications Home Medications Medication Instructions Recorded Confirmed Type aripiprazole [Abilify] 15 mg PO QAM 05/25/18 12/03/18 History gabapentin 800 mg PO QID 05/25/18 12/03/18 History pantoprazole 40 mg PO BID 05/25/18 12/03/18 History rizatriptan 10 mg PO DIRECTED PRN 05/25/18 12/03/18 History tolterodine [Detrol] 2 mg PO BID 06/12/18 12/03/18 History aspirin [Ecotrin Low Strength] 81 mg PO BID #84 tab 06/13/18 12/03/18 Rx alprazolam 1 mg PO TID PRN 12/03/18 12/03/18 History bupropion HCl 200 mg PO BID 12/03/18 12/03/18 History buspirone 30 mg PO TID 12/03/18 12/03/18 History dextroamphetamine-amphetamine 30 mg PO DAILY 12/03/18 12/03/18 History diphenoxylate-atropine 1 tab PO Q8H PRN 30 Days #30 tab 12/03/18 12/03/18 Rx tadalafil 5 mg PO DAILY PRN 12/03/18 12/03/18 History testosterone cypionate 100 mg IM Q10D 12/03/18 12/03/18 History Personal History Beliefs That Will Affect Care: None Patient History Medical History GERD (gastroesophageal reflux disease) (Chronic) Bipolar disorder (Chronic) Depression (Chronic) ADHD (Chronic) Hypogonadism (Chronic) BPH (benign prostatic hyperplasia) (Chronic) Sepsis due to pneumonia (Resolved) Admitted @ [facility] 03/2017, had subsequent pulm w/u and f/u for persistently declining diffusion capacity on PFTs Abnormal PFTs (Chronic) "low but consistent decline in his pulmonary function/diffusion capacity since 2008." Transverse myelitis (Chronic) H/O in 2005. 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 Urinary retention (Chronic) Low testosterone (Chronic) Tobacco abuse (Chronic) Chronic low back pain (Chronic) GERD (gastroesophageal reflux disease) (Chronic) Surgical History History of total right knee replacement (Chronic) S/P decompression of ulnar nerve at elbow (Resolved) Family History Sister Kidney disease Social History Preferred Language: Angolan Communication Ability: Effective Visual Impairment: No Limitations Chiropractic Care Required: No Beliefs That Will Affect Care: None Current Living Situation: Spouse Other Information That Helps Us Care for You: No Feels Safe at Home: Yes Safety Concerns: Feels Safe At This Time Smoking Status: Former smoker Tobacco Type: cigarettes Cigarettes Per Day: 1 PACK PER DAY x 20+ Do You Dip or Chew Tobacco: No Second Hand Exposure: No Tobacco Cessation Education Requested by Patient: No Hx Alcohol Use: No Hx Substance Use: Yes substance use type: marijuana Substance Use Type Other:: medical marijuana Physical Exam Psychiatric: Orientation: alert (though resting), oriented x 3 and cooperative male, appearing fatigued but in no obvious acute distress. He is resting in bed, keeping eyes closed for the majority of visit. Level of hygiene appears adequate for setting. Eye Contact: + poor eye contact (keeps eyes closed for the majority of visit) Motor Behavior: no abnormal motor movements (Observed while laying in bed) Speech: normal rate/rhythm/volume of speech (Provides brief but appropriate answers to questions) Affect: + blunted affect (Appears fatigued) Mood: no depressed mood and no anxious mood "I'm fine, no issues" Thought Process: goal directed thought process and clear/coherent thought process Thought Content: reality based without delusions Suicidal Thoughts: denies suicidal thoughts Homicidal Thoughts: denies homicidal thoughts Hallucinations: no auditory hallucinations and no visual hallucinations Cognition: remote memory grossly intact, attention grossly intact and language grossly intact Estimated Intelligence: consistent with education level Insight: + limited insight Judgement: + limited judgement Vital Signs (Past 24 Hours): Last Vital Signs Temp 36.6 C 12/04/18 07:00 Pulse 79 12/04/18 07:00 Resp 18 12/04/18 07:00 BP 126/81 12/04/18 07:00 Pulse Ox 95 12/04/18 07:00 Review of Systems Constitutional: reports feeling weak Cardiovascular: denied Respiratory: denied Gastrointestinal: denied Neurological: weakness Psychiatric: denies symptoms other than stated above Total of at least 10 systems reviewed, pertinent positives as above and in HPI. Results & Data Medications Administered Aripiprazole (Abilify) 15 mg PO QAM [facility] Stop: 01/03/19 08:59 Last Admin: 12/04/18 09:04 Dose: 15 mg Documented by: [id number] Aspirin (Ecotrin Ectab) 81 mg PO BID [facility] Stop: 01/02/19 20:59 Last Admin: 12/04/18 09:04 Dose: 81 mg Documented by: [id number] Admin: 12/03/18 21:20 Dose: 81 mg Documented by: [id number] Gabapentin (Neurontin) 800 mg PO QID [facility] Stop: 01/02/19 16:59 Last Admin: 12/04/18 09:04 Dose: 800 mg Documented by: [id number] Admin: 12/03/18 21:20 Dose: 800 mg Documented by: [id number] Admin: 12/03/18 17:23 Dose: 800 mg Documented by: [id number] Heparin Sodium (Porcine) (Heparin Sodium (Porcine)) 5,000 units SQ Q8 [facility] Stop: 01/02/19 22:59 Last Admin: 12/04/18 05:33 Dose: 5,000 units Documented by: [id number] Cosigned by: [id number] Admin: 12/04/18 00:13 Dose: Not Given Documented by: [id number] Sodium Chloride (Nss 1000ml) 1,000 mls @ 150 mls/hr IV .[id number] [facility] Stop: 01/02/19 15:14 Last Admin: 12/04/18 08:03 Dose: 150 mls/hr Documented by: [id number] Infusion: 12/04/18 06:54 Dose: 150 mls/hr Documented by: [id number] Admin: 12/04/18 00:13 Dose: 150 mls/hr Documented by: [id number] Infusion: 12/04/18 00:04 Dose: 150 mls/hr Documented by: [id number] Admin: 12/03/18 17:23 Dose: 150 mls/hr Documented by: [id number] Pantoprazole Sodium (Protonix) 40 mg PO BID [facility] Stop: 01/02/19 20:59 Last Admin: 12/04/18 09:04 Dose: 40 mg Documented by: [id number] Admin: 12/03/18 21:20 Dose: 40 mg Documented by: [id number] Tolterodine Tartrate (Detrol) 2 mg PO BID [facility] Stop: 01/02/19 20:59 Last Admin: 12/04/18 09:04 Dose: 2 mg Documented by: [id number] Admin: 12/03/18 21:20 Dose: 2 mg Documented by: [id number]
[2018-12-05] MEDS: SODIUM CHLORIDE 0.9% 1000ML 1,000 ML IV SCH ×3 (02:08→13:58)
[2018-12-05] MEDS: HEPARIN SOD 5,000 UNIT/0.5 ML VIAL SQ SCH ×2 (05:10→13:52)
[2018-12-05 07:18] LABS: Potassium 3.6 mmol/L (3.5-5.1)
[2018-12-05 07:19] LABS: BUN Creatinine Ratio 9.9 (10-20); Calcium 7.8 mg/dl (8.5-10.1); Creatinine Clr Calc Pharmacy 88.2 ml/min
[2018-12-05] MEDS: ASPIRIN 81 MG ECTAB PO SCH (08:18)
[2018-12-05] MEDS: TOLTERODINE TARTRATE 2 MG TAB PO SCH (08:18)
[2018-12-05] MEDS: ARIPiprazole 15 MG TAB PO SCH (08:19)
[2018-12-05] MEDS: PANTOprazole 40 MG TAB PO SCH (08:19)
[2018-12-05] MEDS: GABAPENTIN 400 MG CAP PO SCH ×2 (08:19→12:58)
--- NOTE | 2018-12-05 14:54 | Hospitalist Progress Note ---
Date of Service December 05, 2018 Assessment & Plan (1) Rhabdomyolysis: Patient does have history of elevated CK in the past which was felt to be secondary to transverse myelitis in combination with acute illness CK levels improved 4458>>>[id number]>>628 Possibly secondary to recent medical marijuana use, in setting of poor oral intake Renal function normalized DC IV fluids Advised not to use Medical Marijuana until further recommendations from his physician (2) Elevated AST (SGOT): No H/O alcohol abuse, no new medications aside from medical marijuana Chronic mild elevation noted on prior studies Further work up as outpatient (3) Depression: (4) ADHD: (5) Bipolar disorder: Resume home medications as per Psychiatry No medication changes as per Psychiatry upon discharge Needs Follow up with Psychiatry upon discharge-- Doesn't meet Psychiatric inpatient criteria as per mental health Patient denies any suicidal thoughts (6) Transverse myelitis: Continue gabapentin Follow with Neurology as outpatient (7) GERD (gastroesophageal reflux disease): Continue PPI (8) DVT prophylaxis: SQ heparin Subjective Patient is seen and examined at bedside Doing well today Offers no complaints Denies suicidal/homicidal thoughts Discussed with Psychiatry JARET Madsen---Ok to discharge from Psychiatry standpoint, Doesn't meet inpatient criteria for psychiatry No med changes, Needs FU with psychiatry as outpatient Review of Systems Review of Systems: All systems reviewed & are unremarkable except as noted in HPI & below Physical Exam Physical Exam: Physical Exam: Vitals signs as noted above General Appearance:Moderately built and nourished, no apparent distress Head: normocephalic, Atraumatic Eyes: normal inspection, EOMI Neck: supple, Trachea midline Respiratory/Chest: Normal breath sounds, CTA Cardiovascular: S1, S2, No murmur Abdomen/GI:Soft, Non tender, Bowel sounds present Extremities/Musculoskelatal:normal inspection, no edema Neurologic/Psych:AAOX3, Chronic LLE weakness--unchanged as per patient Skin: normal color, warm Results & Data Vital Signs (Past 12 Hours) Vital Signs Temp Pulse Resp BP Pulse Ox 12/05/18 07:20 36.6 C 80 18 135/85 97 Laboratory Results BMP 12/05/18 06:35 Sodium 138 Potassium 3.6 Chloride 113 H Carbon Dioxide 20 L BUN 9 D Creatinine 0.96 Glucose 97 Calcium 7.8 L Cardiac Enzymes 12/05/18 Range/Units 06:35 Total Creatine Kinase 628 H (39-308) U/L
--- NOTE | 2018-12-05 15:04 | Discharge Summary ---
Date of Service December 05, 2018 Admission HPI Per Admitting Provider Noe Solano is a 58-year-old male admitted to hospital service from a behavioral health unit due to elevated CK and AST. Patient was initially admitted for inpatient psychiatric treatment on an involuntary commitment with petitioning statement completed by his . There was concern regarding patient's acute change in behavior and at the time of presentation to the emergency department it was felt that patient was at risk of harm to himself without psychiatric treatment. He remains on a completed 302, although his psychosis and confusion have been clearing. Please see H&P completed by psychiatrist for further details regarding his brief stay on the behavioral health unit. Patient is seen today on psychiatric consult service as he remains on a 302 involuntary commitment. He appears fatigued today, but is able to participate in a productive conversation with this provider. Patient states that he feels "weak." He denies any ongoing confusion or concerns related to mood or anxiety. Patient denies any active hallucinations, both auditory and visual. He also denies any suicidal or homicidal ideation since his transfer. Patient was continued on aripiprazole only at time of his admission, due to concern other psychiatric medications and the recent addition of medical marijuana may have been contributing to his altered mental status. Patient denies any concerns related to medication adjustments, and denies any needs from her service at this time. Reviewed with patient that we will continue to speak with him during his medical admission, and at time of medical clearance will determine if our recommendation is for discharge to home or ongoing inpatient psychiatric treatment. Patient verbalized understanding of this conversation and denied any further questions. Admission Exam Per Admitting Provider Constitutional: WD/WN, vitals as above Eyes: PERRL, conjunctivae normal, anicteric sclerae ENMT: external ear and nose normal, oropharynx normal Respiratory: normal respiratory effort, lungs clear to auscultation Cardiovascular: Rate/Rhythm: regular rate and regular rhythm Vessels: normal peripheral pulses Extremities: no edema Gastrointestinal (Abdomen): normal bowel sounds, soft, nontender, no hepatosplenomegaly Musculoskeletal: Extremities: no cyanosis and no clubbing BLUE strength 5/5; RLE strength 5/5, LLE strength 4/5 (chronic per patient) Skin: no rashes, warm and dry Neurologic: PERRL, EOMI, accommodation nl, no face palsy, no dysarthria Psychiatric: Orientation: alert and oriented x 3 Affect: + flat affect Principal Diagnosis Discharge Information Discharge Diagnosis Rhabdomyolysis Possible Substance-induced mood disorder ELIZABETH Discharge Goals Decrease discomfort,Improve disease control, Improve function Discharge Activity Limitations Resume your previous activity Discharge Data Allergies Allergy/AdvReac Type Severity Reaction Status Date / Time Cipro Allergy Intermediate RASH Verified 01/05/18 13:07 ciprofloxacin Allergy Intermediate RASH Verified 08/06/18 23:01 Penicillins Allergy Intermediate RASH Verified 08/06/18 23:01 Consultations 12/03/18 15:07 Consult Case Management - Discharge Planning Routine 12/03/18 15:25 Consult Psychiatry Routine Procedures Performed CT Head: No acute intracranial abnormality. Lumbar X ray: No acute bony abnormality is seen involving the lumbosacral spine. Hospital Course (1) Rhabdomyolysis: Patient does have history of elevated CK in the past which was felt to be secondary to transverse myelitis in combination with acute illness CK levels improved 4458>>>[id number]>>628 Possibly secondary to recent medical marijuana use, in setting of poor oral intake Renal function normalized DC IV fluids Advised not to use Medical Marijuana until further recommendations from his physician ELIZABETH:POA Cr:1.47>>0.96 Resolved with IV fluids (2) Elevated AST (SGOT): No H/O alcohol abuse, no new medications aside from medical marijuana Chronic mild elevation noted on prior studies Further work up as outpatient (3) Depression: (4) ADHD: (5) Bipolar disorder: Possible substance-induced mood disorder--Due to Medical Marijuana H/O Bipolar disorder Resume home medications as per Psychiatry No medication changes as per Psychiatry upon discharge Needs Follow up with Psychiatry upon discharge-- Doesn't meet Psychiatric inpatient criteria as per mental health Patient denies any suicidal thoughts Advised not to use Medical Marijuana until further discussed with his psychiatrist (6) Transverse myelitis: Continue gabapentin Follow with Neurology as outpatient (7) GERD (gastroesophageal reflux disease): Continue PPI (8) DVT prophylaxis: SQ heparin Total Time Total Time Spent Total Time Spent (In Minutes): 41 minutes Total Time Includes: Examination of the Patient, Discharge Planning, Medication Reconciliation, Communication With Other Providers and Other Discharge Plan Discharge Items Patient Disposition: Home - Self-Care Reason For Visit: RHABDOMYOLIS Discharge Diagnosis: Rhabdomyolysis Possible Substance-induced mood disorder ELIZABETH Discharge Goals: Decrease discomfort, Improve disease control and Improve function Activity: Resume your previous activity Exercise/Sports: Gradually increase as tolerated Non-emergency contact: Primary Care Provider and Psychiatrist Call non-emergency contact if: you have any medication questions, your symptoms worsen, your pain is not controlled, your pain is worsening, your pain is unusual for you, your pain is concerning for you and you have a fever Follow-up/Referrals: Darren Flores MD [Primary Care Provider] - Diet: Regular Addtl Provider Instructions: Follow up with your PCP on December 12, 2018 at 10:25AM Follow up with your Psychiatrist in 1 week as advised Seek immediate medical attention if your symptoms reoccur or worsen Prescriptions: Continued aripiprazole [Abilify] 15 mg Tablet 15 mg PO QAM RF: 0 gabapentin 400 mg Capsule 800 mg PO QID RF: 0 pantoprazole 40 mg Tablet,Delayed Release (Dr/Ec) 40 mg PO BID RF: 0 rizatriptan 10 mg Tablet 10 mg PO DIRECTED PRN (Reason: Headache) RF: 0 tolterodine [Detrol] 2 mg Tablet 2 mg PO BID RF: 0 aspirin [Ecotrin Low Strength] 81 mg Tablet,Delayed Release (Dr/Ec) 81 mg PO BID Qty: 84 RF: 0 diphenoxylate-atropine 2.5-0.025 mg Tablet 1 tab PO Q8H PRN (Reason: diarrhea) 30 Days Qty: 30 RF: 0 alprazolam 1 mg tablet 1 mg PO TID PRN (Reason: Anxiety) RF: 0 buspirone 30 mg tablet 30 mg PO TID RF: 0 testosterone cypionate 200 mg/mL oil 100 mg IM Q10D RF: 0 dextroamphetamine-amphetamine 30 mg capsule,extended release 24hr 30 mg PO DAILY RF: 0 bupropion HCl 200 mg tablet sustained-release 12 hr 200 mg PO BID RF: 0 tadalafil 5 mg tablet 5 mg PO DAILY PRN (Reason: Sexual Activity) RF: 0 Stand-Alone Forms: [employer] [facility] Discharge Orders: Discharge Order (Routine); Ordered 12/05/18 Ordered By: Markell Suero Admission Data Admit Date/Time: 12/03/18 14:21 Attending Provider: Markell Suero Admit Provider: Venu Fulton Primary Care Provider: Darren Flores Other Providers: Shavonne,RoxiJuan Carlos Wiseman Service: Medical Other Interventions: Discharge Summary Assessment (RN) Last Done: 12/05/18 15:21 DC Date/Time DO NOT enter until pt leaves facility: 12/05/18 16:48
--- NOTE | 2018-12-10 06:54 | Coding Query ---
CODING QUERY To promote full compliance with coding requirements relating to patient care, provider participation is requested in all cases of test preparer uncertainty. Please assist us with the question(s) below: Coding Question: Please clarify the meaning of ELIZABETH documented in the progress notes and discharge summary. ELIZABETH is not a valid abbreviation. Thank you for your help! ( X ) Acute Kidney Injury ( ) Acute Kidney Insufficiency ( ) Other (Specify): Principal Diagnosis: "that condition established after study, to be chiefly responsible for occasioning the admission of the patient to the hospital for care." Co-Existing Principal Diagnosis: "when two or more diagnoses equally meet the criteria for principal diagnosis as determined by the circumstances of admission, diagnostic work up, and/or therapy provided, and the Alphabetic Index, Tabular List, or another coding guideline does not provide sequencing direction, any one of the diagnoses may be sequenced first." "When the physician has documented what appears to be a current diagnosis in the body of the record, but has not included the diagnosis in the final diagnostic statement, the physician should be asked whether the diagnosis should be added." (Source Coding [facility] 2 QTR90. p3-4) MARKY
== END 2018-12-05 16:48 | disposition home or self-care (01) | DRG 558 ==
LOC: SUATTDRO 14:21 → 4W 14:21

== ENCOUNTER 2022-08-19 10:31 | Observation (INO) ==
--- NOTE | 2022-08-11 16:22 | PAT Medication Instructions ---
Medication Instructions Date of Service August 11, 2022 Home Medications Medication Instructions Recorded nabumetone 500 mg tablet 500 mg PO BID PRN pain #60 tabs 04/20/21 Wheeled Walker #1 ea 11/15/21 gabapentin 800 mg tablet 800 mg PO QID 30 days #120 tabs 03/17/22 tolterodine 2 mg tablet 2 mg PO BID #60 tabs 07/28/22 aripiprazole 15 mg tablet (Abilify) 15 mg PO QAM pantoprazole 40 mg tablet,delayed release 40 mg PO BID alprazolam 1 mg tablet 1 mg PO TID PRN bupropion HCl 200 mg tablet,12 hr sustained-release 200 mg PO BID testosterone cypionate 200 mg/mL intramuscular oil 100 mg IM Q14D diphenoxylate-atropine 2.5 mg-0.025 mg tablet 2 tab PO UD PRN ondansetron HCl 4 mg tablet 4 mg PO Q8 PRN prasterone (dhea) 50 mg tablet 50 mg PO Q OTHER DAY nabumetone 500 mg tablet 500 mg PO BID PRN Wheeled Walker aspirin 81 mg tablet,delayed release (Ecotrin Low Strength) 81 mg PO QAM gabapentin 800 mg tablet 800 mg PO QID tolterodine 2 mg tablet 2 mg PO BID Medical Marijuana Card 1 dose PO UD PRN nitrofurantoin macrocrystal 100 mg capsule 100 mg PO HS oxycodone-acetaminophen 5 mg-325 mg tablet (Percocet) 1 tab PO UD PRN rizatriptan 10 mg tablet 10 mg PO UD PRN tadalafil 5 mg tablet 5 mg PO QAM Continue as directed ondansetron HCl 4 mg tablet 4 mg PO Q8 PRN(if needed) rizatriptan 10 mg tablet 10 mg PO UD PRN(if needed) ASK your surgeon for instructions nabumetone 500 mg tablet 500 mg PO BID PRN ASK your prescriber and surgeon aripiprazole 15 mg tablet (Abilify) 15 mg PO QAM STOP taking 2 weeks before surgery testosterone cypionate 200 mg/mL intramuscular oil 100 mg IM Q14D DO NOT take the morning of surgery diphenoxylate-atropine 2.5 mg-0.025 mg tablet 2 tab PO UD PRN prasterone (dhea) 50 mg tablet 50 mg PO Q OTHER DAY tolterodine 2 mg tablet 2 mg PO BID Medical Marijuana Card 1 dose PO UD PRN tadalafil 5 mg tablet 5 mg PO QAM Take morning of surgery With a small sip of water, OTHERWISE NOTHING TO EAT OR DRINK AFTER MIDNIGHT: pantoprazole 40 mg tablet,delayed release 40 mg PO BID alprazolam 1 mg tablet 1 mg PO TID PRN(if needed) bupropion HCl 200 mg tablet,12 hr sustained-release 200 mg PO BID aspirin 81 mg tablet,delayed release (Ecotrin Low Strength) 81 mg PO QAM (unless directed otherwise by surgeon) gabapentin 800 mg tablet 800 mg PO QID oxycodone-acetaminophen 5 mg-325 mg tablet (Percocet) 1 tab PO UD PRN(if needed) Take evening before surgery pantoprazole 40 mg tablet,delayed release 40 mg PO BID alprazolam 1 mg tablet 1 mg PO TID PRN(if needed) bupropion HCl 200 mg tablet,12 hr sustained-release 200 mg PO BID gabapentin 800 mg tablet 800 mg PO QID tolterodine 2 mg tablet 2 mg PO BID nitrofurantoin macrocrystal 100 mg capsule 100 mg PO HS Other Notes If you have any questions please call us at [phone] or [phone] or [phone] or [phone]
--- NOTE | 2022-08-15 10:37 | Anesthesiology Consultation ---
Date of Service August 15, 2022 Assessment & Plan (1) Encounter for pre-operative examination: - Case discussed with Dr. Birmingham who advised pt is acceptable to proceed, does not need further evaluation from his standpoint. - Outpatient joint assessment: Patient is currently scheduled for inpatient pathway. If re-evaluated pending system levels during current pandemic/surgeon requests outpatient pathway, patient is not acceptable candidate for outpatient joint program from anesthesia standpoint. Chart Review Chart Review: Acceptable Risk for Surgery and Patient seen in Pre Admission Testing Teaching & Discussion Pre-Anesthesia Teaching/Discussion Notes: Instructed NPO after midnight before surgery, except medications with 15 cc of water. Medication instructions provided according to the PAT guidelines. History Surgery Operation Date: 08/19/22 13:50 Proposed Procedures p Revision Unicompartment Right Arthroplasty to Right Total Knee Arthroplasty - Jules Holland, Height/Weight Height: 5 ft 7 in Weight: 81.647 kg Allergies Allergy/AdvReac Type Severity Reaction Status Date / Time ciprofloxacin Allergy Unknown RASH Verified 08/11/22 13:58 Penicillins Allergy Unknown RASH Verified 08/11/22 13:58 Medications Home Medications Medication Instructions Recorded Confirmed Last Taken aripiprazole 15 mg tablet (Abilify) 15 mg PO QAM 05/25/18 08/11/22 07/09/22 pantoprazole 40 mg tablet,delayed 40 mg PO BID 05/25/18 08/11/22 07/09/22 08:00 release alprazolam 1 mg tablet 1 mg PO TID PRN Anxiety 12/03/18 08/11/22 12/20/21 21:00 bupropion HCl 200 mg tablet,12 hr 200 mg PO BID 12/03/18 08/11/22 07/09/22 08:00 sustained-release testosterone cypionate 200 mg/mL 100 mg IM Q14D 12/03/18 08/11/22 12/18/21 intramuscular oil diphenoxylate-atropine 2.5 2 tab PO UD PRN Diarrhea 09/09/19 08/11/22 2 Months Ago mg-0.025 mg tablet ~10/21/21 ondansetron HCl 4 mg tablet 4 mg PO Q8 PRN Nausea And Vomiting 09/09/19 08/11/22 2 Weeks Ago ~12/07/21 prasterone (dhea) 50 mg tablet 50 mg PO Q OTHER DAY 09/09/19 08/11/22 12/20/21 08:00 nabumetone 500 mg tablet 500 mg PO BID PRN pain #60 tabs 04/20/21 08/11/22 1 Month Ago ~11/21/21 Wheeled Walker #1 ea 11/15/21 05/17/22 Unknown aspirin 81 mg tablet,delayed 81 mg PO QAM 12/16/21 08/11/22 2 Months Ago release (Ecotrin Low Strength) ~10/21/21 gabapentin 800 mg tablet 800 mg PO QID 30 days #120 tabs 03/17/22 08/11/22 07/09/22 18:00 tolterodine 2 mg tablet 2 mg PO BID #60 tabs 07/28/22 08/11/22 Unknown Medical Marijuana Card 1 dose PO UD PRN anxiety/pain 08/11/22 08/11/22 Unknown nitrofurantoin macrocrystal 100 mg 100 mg PO HS 08/11/22 08/11/22 Unknown capsule oxycodone-acetaminophen 5 mg-325 1 tab PO UD PRN pain 08/11/22 08/11/22 Unknown mg tablet (Percocet) rizatriptan 10 mg tablet 10 mg PO UD PRN Headache 08/11/22 08/11/22 Unknown tadalafil 5 mg tablet 5 mg PO QAM sexual 08/11/22 08/11/22 Unknown activity/enlarged prostate Additional Notes: Pt was advised to not adjust his Abilify unless directed by prescriber. He verbalized full understanding and agreement, denied questions or concerns. Past Medical History Medical History (Updated 08/15/22 @ 10:48 by Jeri Kumari PA-C) Abnormal PFTs "low but consistent decline in his pulmonary function/diffusion capacity since 2008." ADHD Anxiety Bipolar disorder pt not sure Borderline high blood pressure pt has own cuff to monitor / no medication for BPH (benign prostatic hyperplasia) Chronic low back pain Worsening recently lower Chronic migraine without aura or status migrainosus Depression Gait disturbance uses either cane or walker to ambulate GERD (gastroesophageal reflux disease) controlled, stable per pt History of blood transfusion 5-6 yrs ago, during GI bleed d/t ulcer Hyperlipidemia denies hx high cholesterol Leg weakness, bilateral Medical marijuana use Neurogenic bladder Peptic ulcer disease Peripheral neuropathy Rash RECENT HX JUL 09 2022 - ED EVAL [facility] - UNKNOWN ETIOLOGY. RASH HAS RESOLVED. Sepsis due to pneumonia Admitted @ [facility] 03/2017, had subsequent pulm w/u and f/u for persistently declining diffusion capacity on PFTs Tension headache Transverse myelitis H/O in 2005. 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 Urinary retention Patient denies h/o stroke, seizures, heart attack, heart failure, DM, blood clots or blood transfusions. Exercise / Class Metabolic Activity III < 4 Walking/Shop/Light housework (ambulates with walker, occasional shortness of breath with usual activities ongoing > several months; denies chest discomfort; denies change or worsening) Past Family History Family History Sister Kidney disease Other No family history of adverse response to anesthesia Past Surgical History Surgical History History of arthroscopy of right knee (~2017) x2 History of bronchoscopy (~2016) @ [facility] History of colonoscopy History of esophagogastroduodenoscopy (EGD) History of tooth extraction History of total right knee replacement PARTIAL S/P decompression of ulnar nerve at elbow RT Past Anesthesia History No Hx of Anesthesia Complications and No Family Hx of Anesthesia Complications History of PONV No Hx of PONV and No Hx of Motion Sickness Social History Smoking Status: Former smoker tobacco type: cigarettes Do You Dip or Chew Tobacco: No Smoking End Date: 4 YR AGO Hx Alcohol Use: No Hx Substance Use: No substance use type: does not use and other Substance Use Type Other:: MEDICAL MARIJUANA CARD/INSTRUCTED TO BRING Review of Systems Patient denies chest pain, shortness of breath, dyspnea on exertion, snoring, witnessed apneas, fever, chills, cough, wheezing, or palpitations. Physical Exam Vital Signs Vitals BP 150/92 P 102 TEMP 97.7 SP02 99% on RA RESP 18 Physical Full cervical extension range of motion without pain TMD 3.5 finger breadths Mallampati Score 2 Dentition: broken tooth lower right side, several crowns and several implants- left upper and lower; denies loose teeth or bridges Lungs: normal respiratory effort. Clear throughout to auscultation, no adventitious breath sounds Cardiac: regular rate and rhythm, no murmurs noted Carotid arteries: negative bruit bilat Lab Results Anesthesia Preop Results Results Anesthesia Widget: WBC 6.13 K/ul (4.8-10.8) 08/15/22 Hgb 14.1 g/dl (14.0-18.0) 08/15/22 Hct 41.3 % (40.1-51.0) 08/15/22 Plt 289 K/uL (130-400) 08/15/22 Na 139 mmol/L (136-145) 08/15/22 K 4.2 mmol/L (3.5-5.1) 08/15/22 Cl 104 mmol/L (98-107) 08/15/22 CO2 27 mmol/L (21-32) 08/15/22 BUN 17 mg/dl (6-23) 08/15/22 Creat 1.10 mg/dl (0.6-1.4) 08/15/22 Glucose Level 90 mg/dl (70-99(Fasting)) 08/15/22 PT 10.4 Seconds (9.0-12.0) 08/15/22 PTT 29.1 Seconds (21.0-31.0) 08/15/22 INR 1.0 (0.9-1.1) 08/15/22 COVID-19 PCR NEGATIVE (Negative) 07/09/22 Blood Type O Positive 08/15/22 Antibody Screen NEGATIVE 08/15/22 Testing Electrocardiogram Date: 08/15/22 NSR, rate 92 bpm Chest X-Ray Date: 08/15/22 Cardiomediastinal and hilar silhouettes are within normal limits. No pneumothorax, pleural effusion, airspace consolidation or overt pulmonary edema. Degenerative changes of the shoulders and spine. IMPRESSION: No acute process. Echocardiogram Date: 04/03/17 EF 60-65% Grade I diastolic dysfunction Borderline cLVH Normal LV wall motion Mild tricuspid regurgitation Other Testing Abdomen pelvis CT 03/20/22 No acute abnormality. Degenerative changes are seen lumbar spine. Lumbar spine MRI 12/21/21 Interval mild worsening in disc disease, with progression at L3-L4 and L4-L5. There is up to moderate to severe spinal stenosis (AP diameter 7 mm) and severe bilateral neuroforaminal stenosis. COVID-19 Risk Screen Screening Information COVID-19 Screen Date: 08/15/22 Exposure 21 Days Family/Household +COVID Last 21 Days: No Exposure 10 Days Any COVID Exposure Last 10 Days: No Symptoms Last 10 Days Experienced COVID Sx Last 10 Days: No + COVID 0-90 Days COVID + in Last 0-90 Days: No
[~2022-08-19 10:31] MED LIST changes: -ABL/5 PO; +ACETAMINOPHEN 500 MG TAB PO SCH; -ALPR1TAB3 PO; -AMPH20TA2 PO; -ASPI-390 PO; -ASPI81TA28 PO; +BUPIVACAINE 0.5 % 5 MG/1 ML PF 10ML VIAL ONE; -BUPR200T2 PO; -BUSP30TA2 PO; -DIPH-416 PO; -DTRSR/2 PO; -DULO1CAP40 PO; +FAMOTIDINE 20 MG TAB PO SCH; -FRCT/ PO; +GABAPENTIN 300 MG CAP PO SCH; -IBUP-1050 PO; +LIDOCAINE 2% MPF LOCAL 5 ML VIAL INFIL ONE; +LR 500ML BOLUS, THEN 15ML/HR IV SCH; +LR 60ML/HR IV SCH; -MELO-83 PO; +MIDAZOLAM HCL 1 MG/ML 2ML VIAL ONE; -NRN800 PO; -ONDA4TAB46 PO; +ORTHO JOINT MIX INFIL SCH; -PANT40TA2 PO; +PROPOFOL IV EMULSION 10 MG/ML 20 ML VIAL IV ONE; -RIZA1TAB11 PO; +ROCURONIUM BROMIDE 10 MG/ML 5 ML VIAL IV ONE; +ROPIVACAINE 0.5% 5 MG/ML 30 ML VIAL ONE; -SULF800T23 PO; -TADA5TAB11 PO; -TEST1INJ2 INJ; +TRANEXAMIC ACID 1,000 MG **IV Intra-op IV SCH; +TRANEXAMIC ACID 1,000 MG **IV Pre-op IV SCH; -VALA1TAB31 PO; +ceFAZolin 2000MG 2,000 MG/15 ML SYR IV SCH; +dexAMETHasone 4 MG TAB PO SCH; +fentaNYL citrate 100 MCG/2 ML VIAL ONE
[2022-08-19] MEDS ORDERED: ONDANSETRON INJ 2 MG/ML 2 ML VIAL ONE ×2 (10:33→13:39)
--- NOTE | 2022-08-19 11:08 | History & Physical Bridge Note ---
Date of Service August 19, 2022 History & Physical Bridge Note I have examined the patient, reviewed the History & Physical and in the interval since the performance of the History & Physical I have noted the following changes of clinical significance: no changes noted
[2022-08-19] MEDS ORDERED: ORTHO JOINT ANESTHETIC ONE (11:31)
[2022-08-19] MEDS ORDERED: DexMEDEtomidine HCL IV 100 MCG/ML VIAL IV ONE (11:55)
[2022-08-19] MEDS ORDERED: MIDAZOLAM HCL 1 MG/ML 2ML VIAL ONE (12:17)
--- NOTE | 2022-08-19 13:58 | Operative Report ---
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 The femoral component was grossly loose. The tibial component was well fixed. The polyethylene insert had spun out of the implant and was in the suprapatellar pouch. Implants used: I used a [place] Person[employer] total knee arthroplasty system with a size 7 standard PS femur, D tibia with a 30 mm stem extension, 31 oval patella, and a size 10 CPS polyethylene bearing. All components were cemented in place with Biomet cement. Noe arrived [facility] for the above procedure. He was seen in the preoperative holding area and the operative extremity was identified and signed. He was given a preoperative antibiotic, TXA, and an adductor nerve block. He was taken back to the operating room and laid on the table in supine position. He was given general anesthesia. The operative knee was then prepped and draped in sterile fashion. A timeout was done, and the patient and the operative extremity was properly identified. A midline incision was made directly over the patella. Dissection was taken down to the extensor mechanism. A medial parapatellar arthrotomy was used. There was some scar tissue around the old implant. Time was spent removing all scar tissue. The fat pad was then removed. The medial retinaculum was released. The polyethylene implant had spun out of the knee and was in the suprapatellar pouch. This was removed. The knee was then flexed. The femoral component was grossly loose. The tibial implant was well fixed. There was no signs of infection. A drill was sent down the center of the femoral canal followed by an intramedullary laura. Off that laura a distal femoral cutting block was placed. 9 mm was resected off the distal femur at 5 of valgus. A posterior referencing AP sizing guide was then placed on the distal femur. I used Whitesides line to line up rotation. The femur measured to be a size 7. 2 drill holes were placed. A 4-in-1 cutting block was then impacted into place. Anterior, posterior, and chamfer cuts were then made. The proximal tibia was then exposed. The tibial implant was removed with an osteotome and a bone tamp. An external tibial alignment guide was placed. A tibial cut guide was then anchored in place and the proximal tibia was then resected. The posterior aspect of the knee was then opened up and any additional meniscus fragments and osteophytes were removed. The tibia measured to be a size D. The tibial plate was then placed in the appropriate rotation and the tibia was drilled and punched. There was a small defect medially where the previous implant had been. I felt that this could be filled with some cement. Trial components were then placed. I used a size 10 CPS polyethylene insert. The knee was brought through a full range of motion and felt to be stable. The peg holes for the femoral component were then drilled. The patella was then everted and 9 mm was resected off the posterior aspect of the patella. The patella measured to be a size 31 oval. 3 peg holes were then drilled. A trial patella was placed. The knee was once again brought through a full range of motion and felt to be stable. Trial components were then removed. The surrounding soft tissues were injected with 100 cc of an orthopedic pain control cocktail. All components were then cemented into place with Biomet cement. The final polyethylene insert was then snapped into place. Once cement was dry the tourniquet was deflated. Hemostasis was obtained. A dilute betadyne lavage was then done for 3 minutes. The joint was then irrigated with normal saline solution. The medial parapatellar arthrotomy was then closed with #1 Vicryl suture. The skin was closed with 2-0 Vicryl, 3-0V lock suture, and marcelle. A soft compressive dressing was placed. He was then transferred to a hospital bed and taken to the postanesthesia care unit in stable condition. He tolerated the procedure well. Jules Meyer PA-C, was present for the entire procedure. He was critical for patient positioning, prepping, draping, retraction exposure, wound closure and application of sterile dressing. I attest to the content of the Intraoperative Record and any orders documented therein. Any exceptions are noted below.
[2022-08-19] MEDS ORDERED: fentaNYL citrate 100 MCG/2 ML VIAL ONE (14:18)
[2022-08-19] MEDS ORDERED: ATROPINE SULFATE 0.1 MG/ML 10ML SYR IV PRN (14:19)
[2022-08-19] MEDS ORDERED: ePHEDrine sulfate 50 MG/ML AMP IV PRN (14:19)
[2022-08-19] MEDS ORDERED: ONDANSETRON INJ 2 MG/ML 2 ML VIAL IV PRN ×2 (14:19→15:56)
[2022-08-19] MEDS: fentaNYL citrate 100 MCG/2 ML VIAL IV PRN ×4 (14:20→14:50)
--- NOTE | 2022-08-19 14:38 | XRay Report ---
TWO VIEWS RIGHT KNEE CLINICAL HISTORY: Postoperative examination. FINDINGS: AP and crosstable lateral portable views of the right knee are obtained. A right knee arthr oplasty is in near anatomic alignment. There has been undersurface remodeling of the patella. No acut e fracture is seen. There are expected postoperative changes around the knee including skin clips, so ft tissue edema, and subcutaneous gas. IMPRESSION: Expected postoperative changes status post right knee arthroplasty. No acute fracture is seen. ACT 112: Negative or not required by law. Electronically signed by: Esau Ybarra M.D. 08/19/2022 2:37 PM
--- NOTE | 2022-08-19 15:25 | Anesthesiology Progress Note ---
Date of Service August 19, 2022 Anesthesia Post Procedure Vital Signs Vital Signs: Temp Pulse Pulse Resp BP Pulse Ox O2 Del Method 08/19/22 15:00 36.5 C 69 14 113/69 100 Room Air 08/19/22 14:40 69 21 104/65 98 Oxymask 08/19/22 14:30 55 L 15 89/53 L 99 Oxymask 08/19/22 14:50 68 15 110/72 98 Oxymask 08/19/22 14:20 56 L 17 102/57 L 100 Oxymask 08/19/22 14:10 36.0 C L 74 17 110/78 100 Oxymask 08/19/22 10:51 36.8 C 98 H 18 154/103 H 98 Room Air O2 Flow Rate 08/19/22 15:00 08/19/22 14:40 3 08/19/22 14:30 4 08/19/22 14:50 2 08/19/22 14:20 5 08/19/22 14:10 5 08/19/22 10:51 Pain Intensity Right Knee: Pain Intensity: 4 Transfer of Care Handoff Completed per policy Notes Mental Status: alert / awake / arousable and participated in evaluation Patient Amnestic to Procedure: Yes Nausea / Vomiting: adequately controlled Pain: adequately controlled Airway Patency, RR, SpO2: stable & adequate BP & HR: stable & adequate Hydration State: stable & adequate Anesthetic Complications: no major complications apparent
[2022-08-19] MEDS ORDERED: METOCLOPRAMIDE HCL INJ 5 MG/ML 2 ML VIAL IV PRN (15:56)
[2022-08-19] MEDS ORDERED: NON-FORMULARY MEDICATION (Wheeled Walker misc) SCH (15:56)
[2022-08-19] MEDS ORDERED: SODIUM CHLORIDE 0.9% 1000ML 1,000 ML IV SCH (15:56)
[2022-08-19] MEDS ORDERED: ALPRAZolam 0.5 MG TABLET PO PRN (15:56)
[2022-08-19] MEDS ORDERED: PRASTERONE 50 MG PO SCH (15:56)
[2022-08-19] MEDS ORDERED: MAGNESIUM HYDROXIDE SUSP 30 ML UDC PO PRN (15:56)
[2022-08-19] MEDS ORDERED: bisacodyL 10 MG SUPP PR PRN (15:56)
[2022-08-19] MEDS ORDERED: [UNRECOGNIZED DRUG - OTHER] PO PRN (15:56)
[2022-08-19] MEDS ORDERED: RIZATRIPTAN BENZOATE 10 MG TAB PO PRN (15:56)
[2022-08-19] MEDS ORDERED: NABUMETONE 500 MG TABLET PO PRN (15:56)
[2022-08-19] MEDS ORDERED: NALOXONE HCL 0.4 MG/1 ML VIAL/CARP IV PRN (15:56)
[2022-08-19] MEDS ORDERED: DIPHENOXYLATE/ATROPINE 2.5/0.025MG TAB PO PRN (15:56)
[2022-08-19] MEDS ORDERED: TESTOSTERONE CYPIONATE IM 200 MG/ML VIAL IM SCH (15:56)
[2022-08-19] MEDS ORDERED: ONDANSETRON 4 MG OD TAB PO PRN (16:41)
[2022-08-19] MEDS: KETOROLAC 30 MG/ML VIAL IV SCH ×2 (17:22→22:37)
[2022-08-19] MEDS: HYDROmorphone INJ 0.5 MG/0.5 ML SYR IV PRN ×2 (17:23→23:46)
[2022-08-19] MEDS: GABAPENTIN 800 MG TAB PO SCH ×2 (18:26→21:16)
[2022-08-19] MEDS ORDERED: SENNA 8.6 MG TAB PO SCH (21:00)
[2022-08-19] MEDS ORDERED: nitrofurantoin macrocrystaL 50 MG CAP PO SCH (21:00)
[2022-08-19] MEDS: oxyCODONE HCL IR 5 MG TAB (IMMEDIATE RELEASE) PO PRN (21:02)
[2022-08-19] MEDS: PANTOprazole 40 MG TAB PO SCH (21:15)
[2022-08-19] MEDS: DOCUSATE SODIUM 100 MG CAP PO SCH (21:15)
[2022-08-19] MEDS: buPROPion SR 100 MG TABCR PO SCH (21:15)
[2022-08-19] MEDS: TOLTERODINE TARTRATE 2 MG TAB PO SCH (21:15)
[2022-08-19] MEDS: ASPIRIN 81 MG ECTAB PO SCH (21:17)
[2022-08-19] MEDS: ceFAZolin 2000MG 2,000 MG/15 ML SYR IV SCH (21:18)
[2022-08-19] MEDS: ACETAMINOPHEN 500 MG TAB PO SCH (22:36)
[2022-08-19] MEDS: [UNRECOGNIZED DRUG - OTHER] SCH (23:11)
[2022-08-20] MEDS: oxyCODONE HCL IR 5 MG TAB (IMMEDIATE RELEASE) PO PRN ×3 (04:14→12:49)
[2022-08-20] MEDS: KETOROLAC 30 MG/ML VIAL IV SCH ×2 (04:15→10:07)
[2022-08-20] MEDS: ceFAZolin 2000MG 2,000 MG/15 ML SYR IV SCH (04:16)
[2022-08-20] MEDS: ACETAMINOPHEN 500 MG TAB PO SCH (05:40)
--- NOTE | 2022-08-20 06:45 | Orthopedic Progress Note ---
Date of Service August 20, 2022 Assessment & Plan (1) Status post revision of total replacement of right knee: Overall is doing very well. He is not having much pain in the right knee. He will be seen by physical therapy today for ambulation and range of motion exercises. The nursing staff can change his dressing after physical therapy. He he is on aspirin for DVT prophylaxis. He can be discharged home later today. He will follow with orthopedics in 2 weeks. Janis Villegas was seen and examined at bedside this morning. Overall he is doing very well. He is not having much pain in the right knee. He has been up and standing on it but he has not been ambulating yet. He has no new complaints.. Review of Systems All systems reviewed & are unremarkable except as noted in HPI & below. Physical Exam On physical examination of the right knee, the dressing is clean and dry. His leg is out in full extension. He has active dorsiflexion plantarflexion of the right ankle.. Results & Data Results & Data Laboratory Results . Diagnostic Findings Postoperative x-rays of the right knee show the prosthesis to be in anatomic alignment without any evidence of fracture, desiccation, or loosening. PG Care Time/CCT Total # of Minutes Spent Total Time Spent with Patient: Total time spent is greater than 50% in coordination of care (as documented) at patient's floor/unit and/or counseling patient: Coding Level of Care Code 45434 Post Operative Follow-Up Diagnoses Status post revision of total replacement of right knee Z96.651
--- NOTE | 2022-08-20 06:49 | Discharge Summary ---
Date of Service August 20, 2022 Principal Diagnosis Same as "Discharge Diagnosis" noted below under Discharge Instructions. Discharge Exam On physical examination of the right knee, the dressing is clean and dry. His leg is out in full extension. He has active dorsiflexion plantarflexion of the right ankle.. Discharge Data Procedures Performed Operation Date: 08/19/22 12:50 Actual Procedures p Right Knee, Revision Unicompartment Arthroplasty to Right Total Knee Arthroplasty, Cemented(Right) - Jules Holland DO Ordered Studies 08/19/22 05:00 US - OR guided needle placemen Routine Hospital Course (1) Status post revision of total replacement of right knee: On August 19, 2022 Bakari arrived at [facility] and underwent a right knee replacement without complication. He had a general anesthetic. Posto peratively he was started on aspirin for DVT prophylaxis and transferred to the general orthopedic floors. His hospital course was uneventful. On postop day #1, his vital signs were stable and his pain was well controlled. He was able to participate well with physical therapy doing ambulation and range of motion exercises. He was then discharged home. He will follow-up with orthopedics in 2 weeks. PG Care Time/CCT Total # of Minutes Spent Total Time Spent with Patient: Total time spent is greater than 50% in coordination of care (as documented) at patient's floor/unit and/or counseling patient: Discharge Plan Discharge Items Reason For Visit: Failed Hardware Right Unicompartment Knee Discharge Diagnosis: Right knee replacement Activity: Per Instructions section Non-emergency contact: Surgeon Call non-emergency contact if: your wound has increased redness and your wound has increased drainage Follow-up/Referrals: Darren Flores MD [Primary Care Provider] - Diet: Regular Addtl Attending Provider Instructions: Activity and Therapy Recommendations: * If you are using [facility] then therapy will be provided at your home until they feel you have accomplished all of your goals. * If you are using [facility] then Physical Therapy will be provided until they feel you are ready to start Outpatient Physical Therapy. * If you are not using home therapy then Outpatient Physical Therapy should start about 3-5 days from your day of surgery. Therapy will last about 6-10 weeks * It is important not to put a pillow under your knee when you are relaxing or sleeping. It is just as important to make sure you are getting your knee perfectly straight as it is to regain your knee bend. * You were shown a series of exercises in the hospital. Do these exercises three times each day including the exercises you were shown in physical therapy. * Get up and walk several times each day. For the first four weeks, try not to stand or walk for more than one hour at a time. If you do stand or walk for more than one hour, you will not hurt anything, but your leg will likely swell. * As you feel comfortable, you may change from the walker or crutches to a cane and then to independent walking. Medications: * Narcotic You will likely be sent home from the hospital with a prescription for the narcotic pain medication that worked best throughout your stay. * Aspirin Most patients will be required to take Aspirin 81mg twice a day for 6 weeks after surgery. This is obtained [id number] and a prescription is not necessary. * Other medications may be prescribed for specific circumstances. If you have any questions, please call the office at . * Resume previous home medications unless otherwise instructed TEDs/Elastic Stockings: The white elastic stockings help limit swelling and prevent blood clots from forming in your legs.~ The more you wear them, the more they work. Wear them for six weeks. Dressing Care: The dressing can be changed after physical therapy on postop day #1. Daily dry dressing changes for a few days, especially if the incision is still draining some. If the incision is not draining then you may leave the marcelle open to air. If there is a little bit of drainage or if the marcelle are getting stuck on your clothing then cover the incision with a dry dressing. The marcelle will be removed at your 2 week follow-up appointment. Showering: You may shower 5 days from the day of surgery as long as the incision is no longer draining. You may shower with the marcelle exposed. Let soapy water run over the marcelle and pat them dry. Do not scrub or soak the incision. Things To Watch For: * Drainage from the incision site that occurs more than one week after your surgery. * Increased redness at the incision site. * Fever above 102 degrees Fahrenheit. * Unusual chest pain or shortness of breath. * Call [facility] at with any of the above problems Follow-Up Visit: Follow-up with Dr. Holland's PA (Jules Meyer) 2-3 weeks after your day of surgery . He will remove your marcelle and answer any questions. If you have any additional questions or concerns, Dr Holland is usually in the office at the same time and will be available An appointment was probably scheduled when you signed-up for surgery in the office. If you have any questions call Office Instructions: More detailed instructions as well as Frequently Asked Questions were provided in a folder by our office when you signed-up for surgery. Please review these instructions when you get home. If you have any further questions or concerns, please feel free to call the office at [phone] Pending Studies at Discharge: No Stand-Alone Forms: My [facility] Medications and DC Order Prescriptions: Continued gabapentin 800 mg tablet 800 mg PO QID 30 Days Qty: 120 5RF tolterodine 2 mg tablet 2 mg PO BID Qty: 60 5RF Rx Instructions: TAKE 1 TABLET BY MOUTH TWICE A DAY nabumetone 500 mg tablet 500 mg PO BID PRN (Reason: pain) Qty: 60 3RF Rx Instructions: take with food (DME) [employer] [facility] See Rx Instructions .ROUTE .MEDSUPPLY Qty: 1 0RF Rx Instructions: As directed diphenoxylate-atropine 2.5-0.025 mg tablet 2 tab PO UD PRN (Reason: Diarrhea) ondansetron HCl 4 mg tablet 4 mg PO Q8 PRN (Reason: Nausea And Vomiting) prasterone (dhea) 50 mg tablet 50 mg PO Q OTHER DAY aripiprazole [Abilify] 15 mg Tablet 15 mg PO QAM pantoprazole 40 mg Tablet,Delayed Release (Dr/Ec) 40 mg PO BID alprazolam 1 mg tablet 1 mg PO TID PRN (Reason: Anxiety) testosterone cypionate 200 mg/mL oil 100 mg IM Q14D bupropion HCl 200 mg tablet sustained-release 12 hr 200 mg PO BID rizatriptan 10 mg tablet 10 mg PO UD PRN (Reason: Headache) Rx Instructions: take one at onset of migraine, may repeat in 2hrs prn (verified pat call 08/11/22) nitrofurantoin macrocrystal 100 mg capsule 100 mg PO HS tadalafil 5 mg tablet 5 mg PO QAM Medical Marijuana Card 1 dose PO UD PRN (Reason: anxiety/pain) Changed oxycodone-acetaminophen [Percocet] 5-325 mg tablet 1 tab PO Q4H PRN (Reason: pain) Qty: 60 0RF aspirin [Ecotrin Low Strength] 81 mg tablet,delayed release (DR/EC) 81 mg PO BID 42 Days Qty: 0 0RF Admission Data Admit Date/Time: 08/19/22 14:12 Attending Provider: Jules Holland Admit Provider: Jules Holland Primary Care Provider: Darren Flores
[2022-08-20] MEDS: [UNRECOGNIZED DRUG - OTHER] SCH (07:14)
[2022-08-20] MEDS ORDERED: dexAMETHasone 4 MG TAB PO SCH (08:00)
[2022-08-20] MEDS: TOLTERODINE TARTRATE 2 MG TAB PO SCH (08:46)
[2022-08-20] MEDS: DOCUSATE SODIUM 100 MG CAP PO SCH (08:46)
[2022-08-20] MEDS: PANTOprazole 40 MG TAB PO SCH (08:47)
[2022-08-20] MEDS: ASPIRIN 81 MG ECTAB PO SCH (08:47)
[2022-08-20] MEDS: buPROPion SR 100 MG TABCR PO SCH (08:47)
[2022-08-20] MEDS: GABAPENTIN 800 MG TAB PO SCH ×2 (08:48→14:26)
[2022-08-20] MEDS ORDERED: ARIPiprazole 15 MG TAB PO SCH (09:00)
[2022-08-20] MEDS ORDERED: ASPIRIN 81 MG ECTAB PO SCH (09:00)
[2022-08-20] MEDS ORDERED: MULTIVITAMIN TAB PO SCH (09:00)
== END 2022-08-20 14:57 | disposition home or self-care (01) ==
LOC: ASU 10:31 → PACUINP 10:31 → 3E 16:46

== ENCOUNTER 2023-05-07 16:44 | Observation (INO) ==
--- NOTE | 2023-05-07 16:50 | Emergency Department Note ---
ED Provider Note History of Present Illness Chief Complaint: Wound Stated Complaint: DRAINAGE RIGHT KNEE S/P REPLACEMENT 04/28 Time Seen by Provider: 05/07/23 16:49 This is a 63-year-old male who underwent a right revision knee replacement on 04/28/[address] Holland who presents to the emergency department with clear and yellow drainage from the incision on his right knee. This occurred today. He states over the past 2 hours it swelled up and when he changed position in bed it spontaneously drained from the middle of the incision. He denies any pus drainage. Does not believe any of the bret have dislodged. Has not noticed any skin redness. Does admit that yesterday he was standing and his right knee gave out on him and he hyperflexed the knee when he fell onto his bottom but he protected the knee and did not fall onto it. No other trauma. Since the wound drained today he has had a little bit of increase in aching discomfort. He took his prescribed Dilaudid 1 hour ago.. Does report ongoing pain in the right lower leg region. Patient was seen in this emergency department on 05/04/2023 for right calf pain. Ultrasound was negative for DVT. Patient's hospital course was uneventful. Patient denies any fever, chills, body aches, pain in his groin, leg swelling, skin redness around the incision. No new numbness or tingling in his toes. Home Medications Medication Instructions Recorded Confirmed Type pantoprazole 40 mg tablet,delayed 40 mg PO BID 05/25/18 05/07/23 History release alprazolam 1 mg tablet 1.5 mg PO TID PRN Anxiety 12/03/18 05/07/23 History testosterone cypionate 200 mg/mL 100 mg IM Q14D 12/03/18 05/07/23 History intramuscular oil diphenoxylate-atropine 2.5 2 tab PO UD PRN Diarrhea 09/09/19 05/07/23 History mg-0.025 mg tablet ondansetron HCl 4 mg tablet 4 mg PO Q8H PRN Nausea And Vomiting 09/09/19 05/07/23 History prasterone (dhea) 50 mg tablet 50 mg PO DAILY 09/09/19 05/07/23 History Wheeled Walker #1 ea 11/15/21 05/07/23 Rx Medical Marijuana Card 1 dose PO UD PRN anxiety/pain 08/11/22 05/07/23 History nitrofurantoin macrocrystal 100 mg 100 mg PO QAM 03/29/23 05/07/23 History capsule saw palmetto 1 tab PO DAILY 03/29/23 05/07/23 History sildenafil 50 mg tablet (Viagra) 100 mg PO ONCE PRN sexual activity 03/31/23 05/07/23 Rx #30 tabs rizatriptan 10 mg tablet 10 mg PO .COMPLEX PRN Headache #9 04/18/23 05/07/23 Rx tabs aripiprazole 5 mg tablet (Abilify) 5 mg PO QAM 04/27/23 05/07/23 History diphenhydramine HCl 50 mg capsule 50 mg PO HS PRN Nasal Congestion 04/27/23 05/07/23 History gabapentin 800 mg tablet 800 mg PO QID 04/27/23 05/07/23 History pseudoephedrine HCl 30 mg tablet 30 mg PO Q6H PRN Nasal Congestion 04/27/23 05/07/23 History (Sudafed) tolterodine 2 mg tablet 2 mg PO BID #60 tabs 04/28/23 05/07/23 Rx aspirin 81 mg tablet,delayed 81 mg PO BID 6 weeks #0 tabs 04/30/23 05/07/23 Rx release bupropion HCl 100 mg tablet 150 mg PO TID 05/04/23 05/07/23 History hydromorphone 2 mg tablet 2 mg PO Q4H PRN pain #30 tabs 05/04/23 05/07/23 Rx (Dilaudid) hydromorphone 2 mg tablet 2 mg PO .q2-3hours PRN pain #90 05/08/23 Rx (Dilaudid) tabs hydromorphone 2 mg tablet 2 mg PO Q6H PRN pain #30 tabs 05/08/23 Rx (Dilaudid) Allergies Allergy/AdvReac Type Severity Reaction Status Date / Time ciprofloxacin Allergy Intermediate Rash Verified 04/28/23 09:31 Penicillins Allergy Intermediate Rash Verified 04/28/23 09:31 Past Med/Surg History Medical History Abnormal PFTs "low but consistent decline in his pulmonary function/diffusion capacity since 2008."; pt states "he feels fine, no trouble at this time" ADHD Anxiety Bipolar disorder Per records, patient "not sure" Borderline high blood pressure No meds, monitored at home-elevated 180s systolically per pt BPH (benign prostatic hyperplasia) Hx-recently checked "told it was now small" Chronic low back pain Chronic migraine without aura or status migrainosus Hx Depression Gait disturbance Uses either cane or walker to ambulate GERD (gastroesophageal reflux disease) Controlled, stable per pt History of asthma As a child History of blood transfusion Approximately 5 years ago (GI bleed d/t ulcer) Leg weakness, bilateral Neurogenic bladder Peptic ulcer disease Hx Peripheral neuropathy torso, legs bilat Sepsis due to pneumonia 2016- subsequent pulmonary w/u for persistently declining diffusion capacity on PFTs Tension headache Occasional Tibia fracture 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, RLE and LLE) Urinary retention Self-caths daily ~6 times/day Surgical History History of arthroscopy of right knee x2 History of bronchoscopy History of colonoscopy History of esophagogastroduodenoscopy (EGD) History of knee surgery Right knee revision arthroplasty of partial to full TKA (08/19/22): LMA# igel 5 at [facility] History of partial knee replacement Right History of tooth extraction History of total right knee replacement S/P decompression of ulnar nerve at elbow Right Family History Sister Kidney disease Other No family history of adverse response to anesthesia Social History Smoking Status: Never smoker Tobacco Type: Cigarettes Second Hand Exposure: No; Do You Dip or Chew Tobacco: No; Hx Alcohol Use: No Hx Substance Use: Yes Last Used Substance: Days (ago) Last Used Substance Other:: patient has medical marijuana card, last used about 1 month ago Substance Use Type Other:: MEDICAL MARIJUANA CARD/INSTRUCTED TO BRING-advised Preferred Language: Armenian Communication Ability: Effective Communication Ability Comment: needs cueing for tasks with some assistance d/t thought process Visual Impairment: No Limitations Hearing Ability: Normal Customer Field 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 Required: No Beliefs That Will Affect Care: None Current Living Situation: Spouse Current Living Situation Comment: lives in 2 story home with Feels Safe at Home: Yes Assistive Devices: Cane and Walker Physical Exam Vital Signs Vital Signs - 24 hr 05/07/23 16:46 05/07/23 18:32 Temperature 36.6 C Temperature Source Temporal Artery Scan Pulse Rate 99 H Pulse Rate [Right Finger] 78 Respiratory Rate 20 18 Respiratory Effort / Characteristics Non-Labored Spontaneous Non-Labored Respiratory Depth Normal Normal Respiratory Pattern Regular Blood Pressure 161/93 H Blood Pressure [Right Arm] 166/104 H Blood Pressure Mean 115 Blood Pressure Mean [Right Arm] 124 Pulse Oximetry 98 99 Oxygen Delivery Method Room Air Room Air Sepsis Recent Fever Within 48 Hours No Sepsis New/Unexplained Change in Mental Status No Sepsis Action Taken by Nursing No Action Required CONSTITUTIONAL: Well developed, well nourished, in no acute distress. LYMPHATIC: No inguinal adenopathy RESPIRATORY: Breathing unlabored and symmetric. CARDIOVASCULAR: DP pulses 2+ bilaterally MUSCULOSKELETAL: Right lower extremity: Vertically oriented incision over the anterior knee appea rs to be intact. Bret are intact. There is no surrounding erythema. There is diffuse soft tissue swelling about the knee. Patient able to actively flex the knee without difficulty or pain. There is minimal tenderness over the middle portion of the incision. Moves all toes without difficulty. SKIN: [place], warm, dry. NEUROLOGIC: Awake, alert, oriented. No sensory deficits in bilateral lower extremities. Course Administered Medications Discontinued Medications Aripiprazole (Aripiprazole 5 Mg Tab) 5 mg PO QAM [facility] Stop: 06/07/23 08:59 Last Admin: 05/08/23 08:04 Dose: 5 mg Documented By: TEMI Aspirin (Aspirin 81 Mg Ectab) 81 mg PO BID [facility] Stop: 06/06/23 20:59 Last Admin: 05/08/23 08:04 Dose: 81 mg Documented By: Admin: 05/07/23 20:56 Dose: 81 mg Documented By: DADA Bupropion HCl (Bupropion Hcl 75 Mg Tablet) 150 mg PO TID@0800,1200,2100 [facility] Stop: 06/06/23 20:59 Last Admin: 05/08/23 12:20 Dose: 150 mg Documented By: Admin: 05/08/23 07:06 Dose: 150 mg Documented By: Admin: 05/07/23 20:57 Dose: 150 mg Documented By: DADA Docusate Sodium (Docusate Sodium 100 Mg Cap) 100 mg PO BID [facility] Stop: 06/06/23 20:59 Last Admin: 05/08/23 08:04 Dose: 100 mg Documented By: Admin: 05/07/23 20:56 Dose: 100 mg Documented By: DADA Gabapentin (Gabapentin 800 Mg Tab) 800 mg PO QID [facility] Stop: 06/06/23 20:59 Last Admin: 05/08/23 12:20 Dose: 800 mg Documented By: Admin: 05/08/23 08:04 Dose: 800 mg Documented By: Admin: 05/07/23 21:44 Dose: 800 mg Documented By: DADA Hydromorphone HCl (Hydromorphone Inj 0.5 Mg/0.5 Ml Syr) 0.25 mg IV NOW STA Stop: 05/07/23 19:14 Last Admin: 05/07/23 19:22 Dose: 0.25 mg Documented By: GABBY Hydromorphone HCl (Hydromorphone Hcl 2 Mg Tab) 2 mg PO Q4H PRN PRN Reason: moderate pain Stop: 05/21/23 19:46 Last Admin: 05/08/23 12:20 Dose: 2 mg Documented By: Admin: 05/08/23 08:09 Dose: 2 mg Documented By: Admin: 05/08/23 01:22 Dose: 2 mg Documented By: Admin: 05/07/23 20:47 Dose: 2 mg Documented By: DADA Hydromorphone HCl (Hydromorphone Inj 0.5 Mg/0.5 Ml Syr) 0.5 mg IV NOW STA Stop: 05/07/23 22:33 Last Admin: 05/07/23 22:48 Dose: 0.5 mg Documented By: DADA Hydromorphone HCl (Hydromorphone Inj 0.5 Mg/0.5 Ml Syr) 0.5 mg IV Q4H PRN PRN Reason: Pain severe pain 8-10 Stop: 05/21/23 19:08 Last Admin: 05/08/23 02:55 Dose: 0.5 mg Documented By: DADA Hydromorphone HCl (Hydromorphone Inj 1 Mg/Ml Syringe) 1 mg IV Q4 PRN PRN Reason: Pain Stop: 05/22/23 06:09 Last Admin: 05/08/23 11:13 Dose: 1 mg Documented By: Admin: 05/08/23 07:07 Dose: 1 mg Documented By: DADA Influenza Virus Vaccine Quadrival (Influenza Virus Quadrivalent Vaccine (Iiv4) 0.5 Ml Syr) 0.5 ml IM .ONCE ONE Stop: 05/07/23 21:34 Last Admin: 05/08/23 06:00 Dose: 0.5 ml Documented By: DADA Nitrofurantoin Macrocrystals (Nitrofurantoin Macrocrystal 50 Mg Cap) 100 mg PO QAM [facility] Stop: 06/07/23 08:59 Last Admin: 05/08/23 08:04 Dose: 100 mg Documented By: TEMI Oxybutynin Chloride (Oxybutynin Chloride Xl 5 Mg Tabcr) 10 mg PO QPM [facility] Stop: 06/06/23 20:59 Last Admin: 05/07/23 21:44 Dose: 10 mg Documented By: DADA Pantoprazole Sodium (Pantoprazole 40 Mg Tab) 40 mg PO BID [facility] Stop: 06/06/23 20:59 Last Admin: 05/08/23 08:04 Dose: 40 mg Documented By: Admin: 05/07/23 20:58 Dose: 40 mg Documented By: DADA Medical Decision Making Differential Diagnosis Fracture, dislocation, subluxation, neurovascular injury, hardware disruption, effusion, septic joint, cellulitis, bursitis, among other pathology Medical Records Attestation: I reviewed the patient's medical records. (Reviewed recent or thopedic records and prior ED notes) Laboratory Data 05/07/23 18:47 05/07/23 18:47 Lab Results 05/07/23 05/07/23 Range/Units 18:47 18:47 WBC 7.18 (4.8-10.8) K/ul RBC 3.59 L (4.70-6.10) M/uL Hgb 9.8 L (14.0-18.0) g/dl Hct 30.4 L (42.0-52.0) % MCV 84.7 (80.0-100.0) fL MCH 27.3 (25.0-34.0) pg MCHC 32.2 (32.0-36.0) g/dL RDW Std Deviation 54.4 H (36.4-46.3) fL RDW Coeff of Regis 17.5 H (11.5-14.5) % Plt Count 429 H (130-400) K/uL MPV 9.7 (9.4-12.4) fL Immature Gran % (Auto) 0.4 % Neut % (Auto) 66.4 % Lymph % (Auto) 23.7 % Lewis % (Auto) 7.0 % Eos % (Auto) 1.7 % Baso % (Auto) 0.8 % Neut # (Auto) 4.77 (1.40-6.50) K/uL Lymph # (Auto) 1.70 (1.20-3.40) K/uL Lewis # (Auto) 0.50 (0.11-0.59) K/uL Eos # (Auto) 0.12 (0.00-0.50) K/uL Baso # (Auto) 0.06 (0.00-0.20) K/uL Immature Gran # (Auto) 0.03 (0.01-0.20) K/uL Sodium 136 (136-145) mmol/L Potassium 3.8 (3.5-5.1) mmol/L Chloride 105 (98-107) mmol/L Carbon Dioxide 24 (21-32) mmol/L Anion Gap 7 (3-11) BUN 12 (6-23) mg/dl Creatinine 0.97 (0.6-1.4) mg/dl Est Cr Clr Drug Dosing Not Reportable Est GFR ( Amer) 97.3 ml/min Est GFR (Non-Af Amer) 83.9 ml/min BUN/Creatinine Ratio 12.4 (10-20) Glucose 99 (70-99(Fasting)) mg/dl Calcium 9.3 (8.6-10.3) mg/dl Total Bilirubin 0.3 (0.2-1.0) mg/dl AST 24 (13-39) U/L ALT 33 (7-52) U/L Alkaline Phosphatase 154 H (34-104) U/L Total Protein 7.0 (6.0-8.3) gm/dl Albumin 4.3 (3.4-5.0) gm/dl Globulin 2.7 (2.5-4.0) gm/dl Albumin/Globulin Ratio 1.6 (0.9-2) Imaging Data Attestation: I personally reviewed and interpreted this imaging study as follows: (I agree with the radiologist's interpretation) Radiologist's Impression: Knee X-Ray 05/07/23 17:05 RIGHT KNEE 2 VIEWS CLINICAL HISTORY: Recent hip arthroplasty. Hyperflexion injury. FINDINGS: AP and crosstable lateral views of the right knee are compared to study dated 04/28/2023. The skeletal structures are osteopenic. A hinged right knee arthroplasty is in near anatomic alignment. There are long femoral and ti bial stems. There has been undersurface remodeling of the patella. A periprosthetic spiral fracture of the mid tibial shaft is partially visualized. No additional acute fracture is seen. There is a joint effusion. Soft tissue edema and skin clips around the knee are expected postsurgical changes. IMPRESSION: 1. Periprosthetic spiral fracture of the mid tibial shaft. 2. The right knee arthroplasty is in near anatomic alignment. 3. Joint effusion soft tissue edema around the knee are expected postsurgical changes. Electronically signed by: Esau Ybarra M.D. 05/07/2023 5:44 PM MDM Narrative 63-year-old male presents to the emergency department with an episode of what sounds like serosanguineous drainage from the middle portion of his right knee incision. He had a small fall yesterday because his right leg was feeling weak and he hyperflexed the knee when he fell but did not impact it. See above for further details. Patient well-appearing in no acute distress. He is afebrile. He does have some serosanguineous fluid present on the bandage. There is some minimal tenderness in the central portion of the surgical incision. There is no wound dehiscence. There is no overlying skin erythema. Patient able to actively flex. He is neur ovascularly intact. No inguinal adenopathy. He is afebrile and not tachycardic. Have a very low suspicion for septic joint. Case reviewed with ED attending Dr. Zapata. We decided to obtain an x-ray and consult with orthopedics. X-ray of the knee shows a periprosthetic spiral fracture of the mid tibial shaft. Spoke with Dr. Ngo (orthopedics on-call) who agrees the patient needs to be admitted as he will be unable to remain nonweightbearing at home due to his baseline medical comorbidities and baseline weakness and propensity for falling. He recommends a knee immobilizer, ROCCO stockings, and admission to medicine. Will likely end up requiring a full leg cast, high suspicion he will need rehab. I spoke with Anita Mckeon NP [facility] the patient for management. Patient understanding and agreeable with admission. Attending Attestation: I Nicola Zapata MD independently saw and evaluated this patient and agree with history and physical is otherwise documented by the physician biology laboratory assistant. See their note for full details. Patient with pain to right knee s/p R TKA with xrays reviewed with some fracture around implant in the tibia. Pain control has not been to goal. PA discussed with ortho and he will observe overnight in hospital. Impression Maria Elena-prosthetic fracture of proximal tibia, Problem involving surgical incision Discharge Plan Visit Data Chief Complaint: Wound Stated Complaint: DRAINAGE RIGHT KNEE S/P REPLACEMENT 04/28 ED Provider: Nicola Zapata ED Midlevel Provider: Chemo Brown Discharge Problem: Maria Elena-prosthetic fracture of proximal tibia, Problem involving surgical incision Patient Disposition: Admitted As Inpatient Discharge Instructions Interventions: ED Discharge Assessment Last Done: 05/07/23 20:07 Maria Elena-prosthetic fracture of proximal tibia Qualifiers: Encounter type: initial encounter Qualified Code(s): M97.8XXA - Periprosthetic fracture around other internal prosthetic joint, initial encounter
--- NOTE | 2023-05-07 17:46 | XRay Report ---
RIGHT KNEE 2 VIEWS CLINICAL HISTORY: Recent hip arthroplasty. Hyperflexion injury. FINDINGS: AP and crosstable lateral views of the right knee are compared to study dated 04/28/2023. Th e skeletal structures are osteopenic. A hinged right knee arthroplasty is in near anatomic alignment. There are long femoral and tibial stems. There has been undersurface remodeling of the patella. A pe riprosthetic spiral fracture of the mid tibial shaft is partially visualized. No additional acute fra cture is seen. There is a joint effusion. Soft tissue edema and skin clips around the knee are expect ed postsurgical changes. IMPRESSION: 1. Periprosthetic spiral fracture of the mid tibial shaft. 2. The right knee arthroplasty is in near anatomic alignment. 3. Joint effusion soft tissue edema around the knee are expected postsurgical changes. Electronically signed by: Esau Ybarra M.D. 05/07/2023 5:44 PM
[2023-05-07] MEDS ORDERED: ONDANSETRON INJ 2 MG/ML 2 ML VIAL IV PRN (18:53)
[2023-05-07] MEDS ORDERED: ALUMINUM/MAGNESIUM SUSP 30 ML UDC PO PRN (18:53)
[2023-05-07] MEDS ORDERED: ACETAMINOPHEN 325 MG TAB PO PRN (18:53)
[2023-05-07] MEDS ORDERED: MAGNESIUM HYDROXIDE SUSP 30 ML UDC PO PRN (18:53)
[2023-05-07] MEDS ORDERED: POLYETHYLENE (MIRALAX) 17 GM PACK PO PRN (18:53)
--- NOTE | 2023-05-07 18:59 | History & Physical Report ---
Date of Service May 07, 2023 Assessment & Plan (1) Status post revision of total replacement of right knee: (2) Pain in right leg: (3) Tibia fracture: (4) Transverse myelitis: (5) Depression: Plan: Plan Mr. Solano is a 63 year old that presented to the [facility] [place] today after experiencing an acute onset of pain that caused him to hyperflex his right knee and he fell on his bottom. Today, draining was noted from his surgical site. He underwent a right revision knee replacement on 04/28/2023 under the care of Dr. Holland. He stated that the discomfort occurred over the past few hours with notable spontaneous drainage from the middle of his surgical incision. He denies any purulent drainage. He was given Dilaudid IV in the ED with some relief. He was recently seen in the ER on 05/04/2023 for right calf pain at that time DVT was ruled out. Knee x-ray indicates: 1. Periprosthetic spiral fracture of the mid tibial shaft. 2. The right knee arthroplasty is in near anatomic alignment. 3. Joint effusion soft tissue edema around the knee are expected postsurgical changes.Pt does not appear toxic; hemodynamically stable. Will obtain CBC and BMP now. ED discussed with Orthopedics; for now suspect conservative management with knee immobolizer, pain control, TEDS, and orthopedic consultation. Status post revision of total replacement of right knee: Pain in right leg: Tibia fracture: POD #10 s/p R total knee replacement revision. Today, experienced an acute onset of pain causing hyperflexion; leading to a fall Noticed drainage from surgical incision site; proceeded to ED. R knee x-ray: 1. Periprosthetic spiral fracture of the mid tibial shaft. 2. The right knee arthroplasty is in near anatomic alignment. 3. Joint effusion soft tissue edema around the knee are expected postsurgical changes. Orthopedics discussed with ED; conservative management for now Formal Ortho consult to follow; consult placed and appreciate input Immobilizer placed by ED per recommendation by Ortho Pain control with PO and IV Dilaudid PRN Teds and PT/OT with probable inpatient rehab placement NPO after NH pending ortho eval History of transverse myelitis: Chronic stable follows with Dr. Gonzalez Depression: Chronic stable takes alprazolam, bupropion, and Abilify; continue Disposition: PCP: Dr. Demaske CODE STATUS: Full code VTE prophylaxis: Teds and ambulation once cleared by surgery. I spent a total of 87 minutes coordinating, documenting, and providing care for this patient excluding time spent in the performance of separately billed services. All of the aforementioned completed while collaborating with the assigned attending physician for a full treatment plan. Please see their addendum for further details. History of Present Illness Chief Complaint: tibia fracture Primary Care Provider: Darren Flores MD Mr. Solano is a 63 year old that presented to the [facility] [place] today after experiencing an acute onset of pain that caused him to hyperflex his right knee and he fell on his bottom. Today, draining was noted from his surgical site. He underwent a right revision knee replacement on 04/28/2023 under the care of Dr. Holland. He stated that the discomfort occurred over the past few hours with notable spontaneous drainage from the middle of his surgical incision. He denies any purulent drainage. He was given Dilaudid IV in the ED with some relief. He was recently seen in the ER on 05/04/2023 for right calf pain at that time DVT was ruled out. Knee x-ray indicates: 1. Periprosthetic spiral fracture of the mid tibial shaft. 2. The right knee arthroplasty is in near anatomic alignment. 3. Joint effusion soft tissue edema around the knee are expected postsurgical changes. Pt denies PIERRE, dizziness, SOB, chest pain, palpitations, abdominal pain or tenderness, visual or auditory changes. Pt does not appear toxic; hemodynamically stable. Will obtain CBC and BMP now. ED discussed with Orthopedics; for now suspect conservative management with knee immobolizer, pain control, TEDS, and orthopedic consultation. No other medication changes since his discharge. Patient will be admitted for further evaluation and management. Please see A/P for further details. Allergies Allergy/AdvReac Type Severity Reaction Status Date / Time ciprofloxacin Allergy Intermediate Rash Verified 04/28/23 09:31 Penicillins Allergy Intermediate Rash Verified 04/28/23 09:31 Home Medications Medication Instructions Recorded Confirmed Type pantoprazole 40 mg tablet,delayed 40 mg PO BID 05/25/18 05/07/23 History release alprazolam 1 mg tablet 1.5 mg PO TID PRN Anxiety 12/03/18 05/07/23 History testosterone cypionate 200 mg/mL 100 mg IM Q14D 12/03/18 05/07/23 History intramuscular oil diphenoxylate-atropine 2.5 2 tab PO UD PRN Diarrhea 09/09/19 05/07/23 History mg-0.025 mg tablet ondansetron HCl 4 mg tablet 4 mg PO Q8H PRN Nausea And Vomiting 09/09/19 05/07/23 History prasterone (dhea) 50 mg tablet 50 mg PO DAILY 09/09/19 05/07/23 History Wheeled Walker #1 ea 11/15/21 05/07/23 Rx Medical Marijuana Card 1 dose PO UD PRN anxiety/pain 08/11/22 05/07/23 History nitrofurantoin macrocrystal 100 mg 100 mg PO QAM 03/29/23 05/07/23 History capsule saw palmetto 1 tab PO DAILY 03/29/23 05/07/23 History sildenafil 50 mg tablet (Viagra) 100 mg PO ONCE PRN sexual activity 03/31/23 05/07/23 Rx #30 tabs rizatriptan 10 mg tablet 10 mg PO .COMPLEX PRN Headache #9 04/18/23 05/07/23 Rx tabs aripiprazole 5 mg tablet (Abilify) 5 mg PO QAM 04/27/23 05/07/23 History diphenhydramine HCl 50 mg capsule 50 mg PO HS PRN Nasal Congestion 04/27/23 05/07/23 History gabapentin 800 mg tablet 800 mg PO QID 04/27/23 05/07/23 History pseudoephedrine HCl 30 mg tablet 30 mg PO Q6H PRN Nasal Congestion 04/27/23 05/07/23 History (Sudafed) tolterodine 2 mg tablet 2 mg PO BID #60 tabs 04/28/23 05/07/23 Rx aspirin 81 mg tablet,delayed 81 mg PO BID 6 weeks #0 tabs 04/30/23 05/07/23 Rx release bupropion HCl 100 mg tablet 150 mg PO TID 05/04/23 05/07/23 History hydromorphone 2 mg tablet 2 mg PO .EVERY 2-3 HOURS PRN pain 05/04/23 05/07/23 History (Dilaudid) hydromorphone 2 mg tablet 2 mg PO Q4H PRN pain #30 tabs 05/04/23 05/07/23 Rx (Dilaudid) Past Med/Surg History Medical History Abnormal PFTs "low but consistent decline in his pulmonary function/diffusion capacity since 2008."; pt states "he feels fine, no trouble at this time" ADHD Anxiety Bipolar disorder Per records, patient "not sure" Borderline high blood pressure No meds, monitored at home-elevated 180s systolically per pt BPH (benign prostatic hyperplasia) Hx-recently checked "told it was now small" Chronic low back pain Chronic migraine without aura or status migrainosus Hx Depression Gait disturbance Uses either cane or walker to ambulate GERD (gastroesophageal reflux disease) Controlled, stable per pt History of asthma As a child History of blood transfusion Approximately 5 years ago (GI bleed d/t ulcer) Leg weakness, bilateral Neurogenic bladder Peptic ulcer disease Hx Peripheral neuropathy torso, legs bilat Sepsis due to pneumonia 2016- subsequent pulmonary w/u for persistently declining diffusion capacity on PFTs Tension headache Occasional Tibia fracture 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, RLE and LLE) Urinary retention Self-caths daily ~6 times/day Surgical History History of arthroscopy of right knee x2 History of bronchoscopy History of colonoscopy History of esophagogastroduodenoscopy (EGD) History of knee surgery Right knee revision arthroplasty of partial to full TKA (08/19/22): LMA# igel 5 at [facility] [place] History of partial knee replacement Right History of tooth extraction History of total right knee replacement S/P decompression of ulnar nerve at elbow Right Family History Sister Kidney disease Other No family history of adverse response to anesthesia Social History Smoking Status: Former smoker Tobacco Type: Cigarettes Second Hand Exposure: No; Do You Dip or Chew Tobacco: No; Hx Alcohol Use: No Hx Substance Use: Yes (medical card) Last Used Substance Other:: tried cocaine/crack years ago as a "kid"; medical marijuana used daily Substance Use Type Other:: MEDICAL MARIJUANA CARD/INSTRUCTED TO BRING-advised Preferred Language: French Communication Ability: Effective Communication Ability Comment: needs cueing for tasks with some assistance d/t thought process Visual Impairment: No Limitations Hearing Ability: Normal 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 Ospina's physical examination in his addendum note. Results & Data Results & Data Vital Signs (Past 12 Hours) Vital Signs Temp Pulse Pulse Resp BP BP Pulse Ox 05/07/23 18:32 78 18 166/104 H 99 05/07/23 16:46 36.6 C 99 H 20 161/93 H 98 O2 Del Method 05/07/23 18:32 Room Air 05/07/23 16:46 Room Air Laboratory Results Short CBC 05/07/23 Range/Units 18:47 WBC 7.18 (4.8-10.8) K/ul Hgb 9.8 L (14.0-18.0) g/dl Hct 30.4 L (42.0-52.0) % Plt Count 429 H (130-400) K/uL Diagnostic Findings Short CBC 05/07/23 Range/Units 18:47 WBC 7.18 (4.8-10.8) K/ul Hgb 9.8 L (14.0-18.0) g/dl Hct 30.4 L (42.0-52.0) % Plt Count 429 H (130-400) K/uL Knee X-Ray 05/07/23 17:05 RIGHT KNEE 2 VIEWS CLINICAL HISTORY: Recent hip arthroplasty. Hyperflexion injury. FINDINGS: AP and crosstable lateral views of the right knee are compared to study dated 04/28/2023. The skeletal structures are osteopenic. A hinged right knee arthroplasty is in near anatomic alignment. There are long femoral and tibial stems. There has been undersurface remodeling of the patella. A periprosthetic spiral fracture of the mid tibial shaft is partially visualized. No additional acute fracture is seen. There is a joint effusion. Soft tissue edema and skin clips around the knee are expected postsurgical changes. IMPRESSION: 1. Periprosthetic spiral fracture of the mid tibial shaft. 2. The right knee arthroplasty is in near anatomic alignment. 3. Joint effusion soft tissue edema around the knee are expected postsurgical changes. Electronically signed by: Esau Ybarra M.D. 05/07/2023 5:44 PM Code Status & VTE Plan Code Status Full code in the event of cardiac or respiratory arrest VTE Prophylaxis Plan VTE Prophylaxis will be ordered: Yes Supervising Physician Co-Signing Physician Notes Patient seen and examined Reported falling on his buttock yesterday and hyperflexing his right knee Reports increasing pain in the right knee today with some serosanguinous d rainage earlier today Denied fever, chills or other symptoms General: No acute distress Eyes: PERRL, conjunctivae normal, not pale, anicteric sclerae, EOM intact bilaterally ENMT: External ear and nose normal, oropharynx normal Respiratory: Normal respiratory effort, no respiratory distress, lungs clear to auscultation, no crackles and no wheezes Cardiovascular: RRR S1 S2 Gastrointestinal (Abdomen): Abdomen is not distended, soft, non-tender to palpation, no guarding, no palpable hepatosplenomegaly, normal bowel sounds Musculoskeletal: Right knee in dressing and immobilizer Neurologic: Alert and oriented x 3, No focal weakness, sensation grossly intact Psychiatric: Alert and oriented x 3, euthymic affect, no depressed affect Right knee x-ray noted periprosthetic spiral fracture of the mid tibial shaft. Right knee arthroplasty in near anatomic alignment, joint effusion. Get CBC, BMP Ortho consult Keep NPO PMN in case ortho decides to do a procedure Will need PT/OT eval afterwards. May benefit from rehab Hold off any pharm DVT ppx for now Optimize pain control
[2023-05-07 19:02] LABS: Basophils # (auto) 0.06 K/uL (0.00-0.20); Basophils % (auto) 0.8 %; Eosinophils # (auto) 0.12 K/uL (0.00-0.50); Eosinophils % (auto) 1.7 %; Hematocrit (blood only) 30.4 % (42.0-52.0); Hemoglobin 9.8 g/dl (14.0-18.0); Immature Granulocytes # (auto) 0.03 K/uL (0.01-0.20); Immature Granulocytes % (auto) 0.4 %; Lymphocytes % (auto) 23.7 %; Mean Corpuscular Hemoglobin 27.3 pg (25.0-34.0); Mean Corpuscular Hgb Conc 32.2 g/dL (32.0-36.0); Mean Corpuscular Volume 84.7 fL (80.0-100.0); Mean Platelet Volume 9.7 fL (9.4-12.4); Neutrophils # (auto) 4.77 K/uL (1.40-6.50); Neutrophils % (auto) 66.4 %; Platelet Count 429 K/uL (130-400); RDW Coefficient of Variation 17.5 % (11.5-14.5); RDW Standard Deviation 54.4 fL (36.4-46.3); Red Blood Count 3.59 M/uL (4.70-6.10); White Blood Count 7.18 K/ul (4.8-10.8)
[2023-05-07] MEDS ORDERED: HYDROmorphone INJ 0.5 MG/0.5 ML SYR IV PRN ×2 (19:09→22:32)
[2023-05-07] MEDS ORDERED: HYDROmorphone INJ 0.5 MG/0.5 ML SYR IV STA ×2 (19:13→22:32)
[2023-05-07 19:22] LABS: Alanine Aminotransferase 33 U/L (7-52); Albumin Globulin Ratio 1.6 (0.9-2); Albumin Level 4.3 gm/dl (3.4-5.0); Alkaline Phosphatase 154 U/L (34-104); Anion Gap 7 (3-11); Aspartate Aminotransferase 24 U/L (13-39); BUN Creatinine Ratio 12.4 (10-20); Bilirubin,Total 0.3 mg/dl (0.2-1.0); Blood Urea Nitrogen 12 mg/dl (6-23); Calcium 9.3 mg/dl (8.6-10.3); Carbon Dioxide 24 mmol/L (21-32); Chloride 105 mmol/L (98-107); Est GFR (African American) 97.3 ml/min; Est GFR (Non-African American) 83.9 ml/min; Globulin 2.7 gm/dl (2.5-4.0); Glucose 99 mg/dl (70-99(Fasting)); Potassium 3.8 mmol/L (3.5-5.1); Sodium 136 mmol/L (136-145)
[2023-05-07] MEDS ORDERED: RIZATRIPTAN BENZOATE 10 MG TAB PO PRN (19:47)
[2023-05-07] MEDS ORDERED: ALPRAZolam 0.5 MG TABLET PO PRN (19:47)
[2023-05-07] MEDS: HYDROmorphone HCL 2 MG TAB PO PRN (20:47)
[2023-05-07] MEDS: DOCUSATE SODIUM 100 MG CAP PO SCH (20:56)
[2023-05-07] MEDS: ASPIRIN 81 MG ECTAB PO SCH (20:56)
[2023-05-07] MEDS: buPROPion HCl 75 MG TABLET PO SCH (20:57)
[2023-05-07] MEDS: PANTOprazole 40 MG TAB PO SCH (20:58)
[2023-05-07] MEDS ORDERED: OXYBUTYNIN CHLORIDE XL 5 MG TABCR PO SCH (21:00)
[2023-05-07] MEDS ORDERED: INFLUENZA VIRUS QUADRIVALENT VACCINE (IIV4) 0.5 ML SYR IM ONE (21:33)
[2023-05-07] MEDS: GABAPENTIN 800 MG TAB PO SCH (21:44)
[2023-05-08] MEDS: HYDROmorphone HCL 2 MG TAB PO PRN ×3 (01:22→12:20)
--- NOTE | 2023-05-08 06:20 | Orthopedic Consultation ---
Date of Service May 08, 2023 Assessment & Plan (1) Maria Elena-prosthetic fracture of proximal tibia: Time was spent describing the fracture and expected recovery. Fortunately this can be treated nonoperatively. It is relatively nondisplaced and the fracture should heal on its own. He will be nonweightbearing for 6 weeks. It will take 3 months for the fracture to heal all the way. I explained all this to him. We will have physical therapy see him today. As long as he is able to follow nonweightbearing restrictions then he can be discharged home. I did increase his pain medications to 1 mg of Dilaudid IV every 4 hours. I also did the discharge instructions and gave him his discharge prescriptions. Bakari is well- known to me and I feel comfortable managing his pain. He needs to continue the aspirin 81 mg twice a day for DVT prophylaxis and wears ROCCO hose stockings. He will follow-up with orthopedics next week as previously scheduled. He is stable for discharge today if it is okay with the medical team. History of Present Illness Reason for Consultation: Right periprosthetic tibial fracture. Requesting Physician: . Attending Physician: Shantal Ospina MD Bakari is a pleasant 63-year-old male who is well-known to me. I did a revision right knee replacement on him about a week ago. Yesterday he fell backwards into a seated position and was having increased pain in his right tibia. He came to the emergency room. Radiographs demonstrated a fracture at the tip of the tibial prosthesis. He was admitted to the medical service. Orthopedics was consulted to evaluate and treat.. Allergies Allergy/AdvReac Type Severity Reaction Status Date / Time ciprofloxacin Allergy Intermediate Rash Verified 04/28/23 09:31 Penicillins Allergy Intermediate Rash Verified 04/28/23 09:31 Home Medications Medication Instructions Recorded Confirmed Type pantoprazole 40 mg tablet,delayed 40 mg PO BID 05/25/18 05/07/23 History release alprazolam 1 mg tablet 1.5 mg PO TID PRN Anxiety 12/03/18 05/07/23 History testosterone cypionate 200 mg/mL 100 mg IM Q14D 12/03/18 05/07/23 History intramuscular oil diphenoxylate-atropine 2.5 2 tab PO UD PRN Diarrhea 09/09/19 05/07/23 History mg-0.025 mg tablet ondansetron HCl 4 mg tablet 4 mg PO Q8H PRN Nausea And Vomiting 09/09/19 05/07/23 History prasterone (dhea) 50 mg tablet 50 mg PO DAILY 09/09/19 05/07/23 History Wheeled Walker #1 ea 11/15/21 05/07/23 Rx Medical Marijuana Card 1 dose PO UD PRN anxiety/pain 08/11/22 05/07/23 History nitrofurantoin macrocrystal 100 mg 100 mg PO QAM 03/29/23 05/07/23 History capsule saw palmetto 1 tab PO DAILY 03/29/23 05/07/23 History sildenafil 50 mg tablet (Viagra) 100 mg PO ONCE PRN sexual activity 03/31/23 05/07/23 Rx #30 tabs rizatriptan 10 mg tablet 10 mg PO .COMPLEX PRN Headache #9 04/18/23 05/07/23 Rx tabs aripiprazole 5 mg tablet (Abilify) 5 mg PO QAM 04/27/23 05/07/23 History diphenhydramine HCl 50 mg capsule 50 mg PO HS PRN Nasal Congestion 04/27/23 05/07/23 History gabapentin 800 mg tablet 800 mg PO QID 04/27/23 05/07/23 History pseudoephedrine HCl 30 mg tablet 30 mg PO Q6H PRN Nasal Congestion 04/27/23 05/07/23 History (Sudafed) tolterodine 2 mg tablet 2 mg PO BID #60 tabs 04/28/23 05/07/23 Rx aspirin 81 mg tablet,delayed 81 mg PO BID 6 weeks #0 tabs 04/30/23 05/07/23 Rx release bupropion HCl 100 mg tablet 150 mg PO TID 05/04/23 05/07/23 History hydromorphone 2 mg tablet 2 mg PO Q4H PRN pain #30 tabs 05/04/23 05/07/23 Rx (Dilaudid) hydromorphone 2 mg tablet 2 mg PO .EVERY 2-3 HOURS PRN pain 05/08/23 Rx (Dilaudid) #90 tabs Past Med/Surg History Medical History Abnormal PFTs "low but consistent decline in his pulmonary function/diffusion capacity since 2008."; pt states "he feels fine, no trouble at this time" ADHD Anxiety Bipolar disorder Per records, patient "not sure" Borderline high blood pressure No meds, monitored at home-elevated 180s systolically per pt BPH (benign prostatic hyperplasia) Hx-recently checked "told it was now small" Chronic low back pain Chronic migraine without aura or status migrainosus Hx Depression Gait disturbance Uses either cane or walker to ambulate GERD (gastroesophageal reflux disease) Controlled, stable per pt History of asthma As a child History of blood transfusion Approximately 5 years ago (GI bleed d/t ulcer) Leg weakness, bilateral Neurogenic bladder Peptic ulcer disease Hx Peripheral neuropathy torso, legs bilat Sepsis due to pneumonia 2016- subsequent pulmonary w/u for persistently declining diffusion capacity on PFTs Tension headache Occasional Tibia fracture 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, RLE and LLE) Urinary retention Self-caths daily ~6 times/day Surgical History History of arthroscopy of right knee x2 History of bronchoscopy History of colonoscopy History of esophagogastroduodenoscopy (EGD) History of knee surgery Right knee revision arthroplasty of partial to full TKA (08/19/22): LMA# igel 5 at [facility] History of partial knee replacement Right History of tooth extraction History of total right knee replacement S/P decompression of ulnar nerve at elbow Right Family History Sister Kidney disease Other No family history of adverse response to anesthesia Social History Smoking Status: Never smoker Tobacco Type: Cigarettes Second Hand Exposure: No; Do You Dip or Chew Tobacco: No; Hx Alcohol Use: No Hx Substance Use: Yes Last Used Substance: Days (ago) Last Used Substance Other:: patient has medical marijuana card, last used about 1 month ago Substance Use Type Other:: MEDICAL MARIJUANA CARD/INSTRUCTED TO BRING-advised Preferred Language: [place] Communication Ability: Effective Communication Ability Comment: needs cueing for tasks with some assistance d/t thought process Visual Impairment: No Limitations Hearing Ability: Normal Auto Polisher Required: No Beliefs That Will Affect Care: None Current Living Situation: Spouse Current Living Situation Comment: lives in 2 story home with Other Information That Helps Us Care for You: No Feels Safe at Home: Yes Safety Concerns: Feels Safe At This Time Assistive Devices: Brace/Splint/Immobilizer and Walker Review of Systems All systems reviewed & are unremarkable except as noted in HPI & below. Physical Exam On physical examination of the right leg, there is no deformity. He still has good motion of his knee from 10 to 90 degrees. He is little bit of drainage from the incision but there is no signs of infection. He does have pain down the tibial shaft. He has active dorsiflexion plantarflexion of his right ankle. Constitutional WD/WN, vitals as above Eyes PERRL, conjunctivae normal, anicteric sclerae ENMT external ear and nose normal, oropharynx normal Neck trachea midline, no thyromegaly Respiratory normal respiratory effort, lungs clear to auscultation Cardiovascular RRR, no murmur, no edema Gastrointestinal (Abdomen) normal bowel sounds, soft, nontender, no hepatosplenomegaly Skin no rashes, warm and dry Psychiatric A+Ox3, euthymic affect Results & Data Results & Data Laboratory Results . Diagnostic Findings X-rays of the right tibia show no evidence of fracture on the AP view, however, on the lateral view there is a spiral fracture at the tip of the prosthesis with minimal displacement.. PG Care Time/CCT Total # of Minutes Spent Total Time Spent with Patient: Total time spent is greater than 50% in coordination of care (as documented) at patient's floor/unit and/or counseling patient: Coding Level of Care Code None Diagnoses Maria Elena-prosthetic fracture of proximal tibia M97.8XXA; Z96.659 Encounter type: initial encounter (1) Maria Elena-prosthetic fracture of proximal tibia Encounter type: initial encounter Qualified Code(s): M97.8XXA - Periprosthetic fracture around other internal prosthetic joint, initial encounte r; Z96.659 - Presence of unspecified artificial knee joint
[2023-05-08 07:01] LABS: Hematocrit (blood only) 33.6 % (42.0-52.0); Hemoglobin 10.7 g/dl (14.0-18.0); Mean Corpuscular Hemoglobin 27.2 pg (25.0-34.0); Mean Corpuscular Hgb Conc 31.8 g/dL (32.0-36.0); Mean Corpuscular Volume 85.5 fL (80.0-100.0); Mean Platelet Volume 9.2 fL (9.4-12.4); Platelet Count 425 K/uL (130-400); RDW Coefficient of Variation 17.7 % (11.5-14.5); RDW Standard Deviation 55.6 fL (36.4-46.3); Red Blood Count 3.93 M/uL (4.70-6.10); White Blood Count 7.35 K/ul (4.8-10.8)
[2023-05-08] MEDS: buPROPion HCl 75 MG TABLET PO SCH ×2 (07:06→12:20)
[2023-05-08] MEDS: HYDROmorphone INJ 1 MG/ML SYRINGE IV PRN ×2 (07:07→11:13)
[2023-05-08 07:21] LABS: Albumin Globulin Ratio 1.4 (0.9-2); Albumin Level 4.2 gm/dl (3.4-5.0); BUN Creatinine Ratio 11.3 (10-20); Bilirubin,Total 0.4 mg/dl (0.2-1.0); Calcium 9.1 mg/dl (8.6-10.3); Creatinine Clr Calc Pharmacy 74.8 ml/min; Est GFR (African American) 97.3 ml/min; Est GFR (Non-African American) 83.9 ml/min; Globulin 2.9 gm/dl (2.5-4.0); Potassium 3.7 mmol/L (3.5-5.1); Total Protein 7.1 gm/dl (6.0-8.3)
[2023-05-08] MEDS: PANTOprazole 40 MG TAB PO SCH (08:04)
[2023-05-08] MEDS: DOCUSATE SODIUM 100 MG CAP PO SCH (08:04)
[2023-05-08] MEDS: GABAPENTIN 800 MG TAB PO SCH ×2 (08:04→12:20)
[2023-05-08] MEDS: ASPIRIN 81 MG ECTAB PO SCH (08:04)
[2023-05-08] MEDS ORDERED: ARIPiprazole 5 MG TAB PO SCH (09:00)
[2023-05-08] MEDS ORDERED: nitrofurantoin macrocrystaL 50 MG CAP PO SCH (09:00)
--- NOTE | 2023-05-08 10:51 | Discharge Summary ---
Discharge Summary Date of Service May 08, 2023 Notes For Next Care Provider He is s/p Revision of R total Knee on 04/28/23. He experienced Pain in his Knee along with spontaneous drainage from surgical site which caused his to fall on his bottom. Xray on admission revealed a spiral facture of periprosthetic of mid tibial shaft. He was seen and evaluated by Dr. Holland who performed initial surgery. Plan was made for conservative management and close outpatient orthopedic follow up. Medication Changes From Visit None Admission HPI Per Admitting Provider Mr. Solano is a 63 year old that presented to the [facility] today after experiencing an acute onset of pain that caused him to hyperflex his right knee and he fell on his bottom. Today, draining was noted from his surgical site. He underwent a right revision knee replacement on 04/28/2023 under the care of Dr. Holland. He stated that the discomfort occurred over the past few hours with notable spont aneous drainage from the middle of his surgical incision. He denies any purulent drainage. He was given Dilaudid IV in the ED with some relief. He was recently seen in the ER on 05/04/2023 for right calf pain at that time DVT was ruled out. Knee x-ray indicates: 1. Periprosthetic spiral fracture of the mid tibial shaft. 2. The right knee arthroplasty is in near anatomic alignment. 3. Joint effusion soft tissue edema around the knee are expected postsurgical changes. Pt denies PIERRE, dizziness, SOB, chest pain, palpitations, abdominal pain or tenderness, visual or auditory changes. Pt does not appear toxic; hemodynamically stable. Will obtain CBC and BMP now. ED discussed with Orthopedics; for now suspect conservative management with knee immobolizer, pain control, TEDS, and orthopedic consultation. No other medication changes since his discharge. Patient will be admitted for further evaluation and management. Please see A/P for further details. Admission Exam Per Admitting Provider General: No acute distress Eyes: PERRL, conjunctivae normal, not pale, anicteric sclerae, EOM intact bilaterally ENMT: External ear and nose normal, oropharynx normal Respiratory: Normal respiratory effort, no respiratory distress, lungs clear to auscultation, no crackles and no wheezes Cardiovascular: RRR S1 S2 Gastrointestinal (Abdomen): Abdomen is not distended, soft, non-tender to palpation, no guarding, no palpable hepatosplenomegaly, normal bowel sounds Musculoskeletal: Right knee in dressing and immobilizer Neurologic: Alert and oriented x 3, No focal weakness, sensation grossly intact Psychiatric: Alert and oriented x 3, euthymic affect, no depressed af fect Principal Dx & Hospital Course #1 = Principal Diagnosis (1) Status post revision of total replacement of right knee: (2) Pain in right leg: (3) Tibia fracture: (4) Transverse myelitis: (5) Depression: Plan Mr. Solano is a 63 year old that presented to the [facility] today after experiencing an acute onset of pain that caused him to hyperflex his right knee and he fell on his bottom. Status post revision of total replacement of right knee 04/28/23: Pain in right leg: Tibia fracture: POD #11 s/p R total knee replacement revision. Day of admission, experienced an acute onset of pain causing hyperflexion; leading to a fall Noticed drainage from surgical incision site; proceeded to ED. R knee x-ray: 1. Periprosthetic spiral fracture of the mid tibial shaft. 2. The right knee arthroplasty is in near anatomic alignment. 3. Joint effusion soft tissue edema around the knee are expected postsurgical changes. Seen and evaluated by Dr. Holland: Nonoperative, conservative management, NWB x 6 weeks, it will take at least 3 months for fx to heal on own. Dr Holland will see pt in office next week and is comfortable managing his pain. Immobilizer not required if able to remain NWB Due to NWB status pt cannot use a walker or cane safely and a wheel chair will assist with adl's and he has a caregiver to assist with pushing PT/OT saw patient and cleared for D/C home History of transverse myelitis: Chronic stable follows with Dr. Gonzalez Depression: Chronic stable takes alprazolam, bupropion, and Abilify; continue Disposition: PCP: Dr. Flores CODE STATUS: Full code VTE prophylaxis: ASA BID per Dr. Holland Pt was seen and examined in collaboration with Dr. Bass, please see addendum Discharge Exam Gen: WD/WN, male, sitting up in bed, pleasant and conversing easily NAD, A&O x3 HEENT: Normocephalic, atraumatic, conjunctivae moist, sclerae anicteric, mucous membranes moist. Lung: Clear to Auscultation bilaterally, no wheezes/rales/rhonchi Heart: Regular rate, regular rhythm, no murmurs, rubs, or gallops Abdomen: Soft, NT, ND +BS x 4 Extremities: No edema, right lower extremity dressing/bandage to right knee, CDI, patient with active and full range of motion to upper and lower extremity Skin: Warm, no rash, negative turgor. Updated Medication List Medication Instructions Recorded Confirmed Type pantoprazole 40 mg tablet,delayed 40 mg PO BID 05/25/18 05/07/23 History release alprazolam 1 mg tablet 1.5 mg PO TID PRN Anxiety 12/03/18 05/07/23 History testosterone cypionate 200 mg/mL 100 mg IM Q14D 12/03/18 05/07/23 History intramuscular oil diphenoxylate-atropine 2.5 2 tab PO UD PRN Diarrhea 09/09/19 05/07/23 History mg-0.025 mg tablet ondansetron HCl 4 mg tablet 4 mg PO Q8H PRN Nausea And Vomiting 09/09/19 05/07/23 History prasterone (dhea) 50 mg tablet 50 mg PO DAILY 09/09/19 05/07/23 History Wheeled Walker #1 ea 11/15/21 05/07/23 Rx Medical Marijuana Card 1 dose PO UD PRN anxiety/pain 08/11/22 05/07/23 History nitrofurantoin macrocrystal 100 mg 100 mg PO QAM 03/29/23 05/07/23 History capsule saw palmetto 1 tab PO DAILY 03/29/23 05/07/23 History sildenafil 50 mg tablet (Viagra) 100 mg PO ONCE PRN sexual activity 03/31/23 05/07/23 Rx #30 tabs rizatriptan 10 mg tablet 10 mg PO .COMPLEX PRN Headache #9 04/18/23 05/07/23 Rx tabs aripiprazole 5 mg tablet (Abilify) 5 mg PO QAM 04/27/23 05/07/23 History diphenhydramine HCl 50 mg capsule 50 mg PO HS PRN Nasal Congestion 04/27/23 05/07/23 History gabapentin 800 mg tablet 800 mg PO QID 04/27/23 05/07/23 History pseudoephedrine HCl 30 mg tablet 30 mg PO Q6H PRN Nasal Congestion 04/27/23 05/07/23 History (Sudafed) tolterodine 2 mg tablet 2 mg PO BID #60 tabs 04/28/23 05/07/23 Rx aspirin 81 mg tablet,delayed 81 mg PO BID 6 weeks #0 tabs 04/30/23 05/07/23 Rx release bupropion HCl 100 mg tablet 150 mg PO TID 05/04/23 05/07/23 History hydromorphone 2 mg tablet 2 mg PO Q4H PRN pain #30 tabs 05/04/23 05/07/23 Rx (Dilaudid) hydromorphone 2 mg tablet 2 mg PO .q2-3hours PRN pain #90 05/08/23 Rx (Dilaudid) tabs hydromorphone 2 mg tablet 2 mg PO Q6H PRN pain #30 tabs 05/08/23 Rx (Dilaudid) Hospital Stay Data Consultations 05/07/23 18:57 Consult Orthopedic Surgery Routine Assessment & Plan (1) Maria Elena-prosthetic fracture of proximal tibia: Time was spent describing the fracture and expected recovery. Fortunately this can be treated nonoperatively. It is relatively nondisplaced and the fracture should heal on its own. He will be nonweightbearing for 6 weeks. It will take 3 months for the fracture to heal all the way. I explained all this to him. We will have physical therapy see him today. As long as he is able to follow nonweightbearing restrictions then he can be discharged home. I did increase his pain medications to 1 mg of Dilaudid IV every 4 hours. I also did the discharge instructions and gave him his discharge prescriptions. Bakari is well- known to me and I feel comfortable managing his pain. He needs to continue the aspirin 81 mg twice a day for DVT prophylaxis and wears ROCCO hose stockings. He will follow-up with orthopedics next week as previously scheduled. He is stable for discharge today if it is okay with the medical team. Diagnostic Imagining Performed Knee X-Ray 05/07/23 17:05 RIGHT KNEE 2 VIEWS CLINICAL HISTORY: Recent hip arthroplasty. Hyperflexion injury. FINDINGS: AP and crosstable lateral views of the right knee are compared to study dated 04/28/2023. The skeletal structures are osteopenic. A hinged right knee arthroplasty is in near anatomic alignment. There are long femoral and tibial stems. There has been undersurface remodeling of the patella. A periprosthetic spiral fracture of the mid tibial shaft is partially visualized. No additional acute fracture is seen. There is a joint effusion. Soft tissue edema and skin clips around the knee are expected postsurgical changes. IMPRESSION: 1. Periprosthetic spiral fracture of the mid tibial shaft. 2. The right knee arthroplasty is in near anatomic alignment. 3. Joint effusion soft tissue edema around the knee are expected postsurgical changes. Electronically signed by: Esau Ybarra M.D. 05/07/2023 5:44 PM Pending Results Patient Have Any Pending Studies at Discharge: No Discharge Instructions Given to Patient (Per Discharging Provider) Orthopedic discharge instructions: Nonweightbearing on the right leg for 6 weeks. Knee immobilizer is not needed as long as he is able to stay nonweightbearing. Aspirin 81 mg twice a day for 6 weeks ROCCO hose stockings for 6 weeks Follow-up with Dr. Holland as previously scheduled next week. Medical discharge instructions: Recommend regular stool softener to assist in daily bowel habits while taking pain medications. Follow up with Primary Care Provider as scheduled. Total Time Total Time Spent Total Time Spent (In Minutes): 45 minutes Supervising Physician Co-Signing Physician Notes Attending Addendum: care coordinated with DELANEY Bustos please refer to her notes for full details, I agree with her notes patient seen and examined, records reviewed by myself as well diagnoses and plan of care as per DELANEY Bustos's notes Calvin Bass MD
== END 2023-05-08 14:49 | disposition home or self-care (01) | DRG 560 ==
LOC: ED 16:44 → INTOOBSV 18:55 → SUATTDRO 18:55 → 3N 18:55

== ENCOUNTER 2024-02-06 05:36 | Inpatient (IN) ==
--- NOTE | 2024-01-02 09:02 | PAT Medication Instructions ---
Medication Instructions Date of Service January 02, 2024 Home Medications Medication Instructions Recorded Wheeled Walker #1 ea 11/15/21 3-in-1 Commode #1 ea 05/11/23 Wheelchair (Manual) #1 ea 05/11/23 tolterodine 2 mg tablet 2 mg PO BID #60 tabs 06/06/23 rizatriptan 10 mg tablet 10 mg PO DIRECTED PRN Headache 07/20/23 #9 tabs sildenafil 50 mg tablet (Viagra) 100 mg (2 x 50 mg) PO DIRECTED 10/10/23 PRN sexual activity #30 tabs pantoprazole 40 mg tablet,delayed release 40 mg PO BID diphenoxylate-atropine 2.5 mg-0.025 mg tablet 2 tab PO UD PRN ondansetron HCl 4 mg tablet 4 mg PO Q8H PRN prasterone (dhea) 50 mg tablet 100 mg PO QAM Medical Marijuana Card 1 dose PO UD PRN nitrofurantoin macrocrystal 100 mg capsule 100 mg PO QAM saw palmetto 1 tab PO QAM diphenhydramine HCl 50 mg capsule 50 mg PO HS PRN pseudoephedrine HCl 30 mg tablet (Sudafed) 30 mg PO Q6H PRN bupropion HCl 100 mg tablet 150 mg PO TID tolterodine 2 mg tablet 2 mg PO BID rizatriptan 10 mg tablet 10 mg PO DIRECTED PRN sildenafil 50 mg tablet (Viagra) 100 mg (2 x 50 mg) PO DIRECTED PRN testosterone cypionate 200 mg/mL intramuscular oil 50 mg IM Q14D ziprasidone HCl 20 mg capsule 20 mg PO BID diazepam 10 mg tablet (Valium) 10 mg PO TID PRN ibuprofen 200 mg tablet 300 mg PO Q6H PRN Continue as directed nitrofurantoin macrocrystal 100 mg capsule 100 mg PO QAM rizatriptan 10 mg tablet 10 mg PO DIRECTED PRN(if needed) ASK your surgeon for instructions ibuprofen 200 mg tablet 300 mg PO Q6H PRN ASK your prescriber and surgeon prasterone (dhea) 50 mg tablet 100 mg PO QAM testosterone cypionate 200 mg/mL intramuscular oil 50 mg IM Q14D STOP taking 2 weeks before surgery (or as soon as possible if surgery is within 2 weeks) caroline palmetto 1 tab PO QAM DO NOT take the morning of surgery diphenoxylate-atropine 2.5 mg-0.025 mg tablet 2 tab PO UD PRN Medical Marijuana Card 1 dose PO UD PRN pseudoephedrine HCl 30 mg tablet (Sudafed) 30 mg PO Q6H PRN tolterodine 2 mg tablet 2 mg PO BID sildenafil 50 mg tablet (Viagra) 100 mg (2 x 50 mg) PO DIRECTED PRN Take morning of surgery With a small sip of water, OTHERWISE NOTHING TO EAT OR DRINK AFTER MIDNIGHT: pantoprazole 40 mg tablet,delayed release 40 mg PO BID ondansetron HCl 4 mg tablet 4 mg PO Q8H PRN(if needed) diazepam 10 mg tablet (Valium) 10 mg PO TID PRN(if needed) bupropion HCl 100 mg tablet 150 mg PO TID ziprasidone HCl 20 mg capsule 20 mg PO BID Take evening before surgery pantoprazole 40 mg tablet,delayed release 40 mg PO BID ondansetron HCl 4 mg tablet 4 mg PO Q8H PRN(if needed) diphenhydramine HCl 50 mg capsule 50 mg PO HS PRN(if needed) pseudoephedrine HCl 30 mg tablet (Sudafed) 30 mg PO Q6H PRN(if needed) diazepam 10 mg tablet (Valium) 10 mg PO TID PRN(if needed) tolterodine 2 mg tablet 2 mg PO BID ziprasidone HCl 20 mg capsule 20 mg PO BID Other Notes If you have any questions please call us at [phone] or [phone] or [phone] or [phone]
--- NOTE | 2024-01-15 13:08 | Anesthesiology Consultation ---
Date of Service January 15, 2024 Assessment & Plan (1) Encounter for pre-operative examination: Chart Review Chart Review: Acceptable Risk for Surgery and Patient seen in Pre Admission Testing Patient scheduled for MRI with sedation 02/02/24 (due to hypogonadism in male) Neurogenic bladder- self caths 4-6x daily Per PAT appt on 01/15/24, no recent illness/disease exposures, illness related symptoms, or recent illness/disease positive tests. Will leave to surgeon's discretion if preop Covid testing needed Seen by endocrine 12/19/23= Patient seen for referral for hypogonadism. Present since 2005 after history of transverse myelitis with severe injury both sensory and motor. Patient followed with [facility] endocrinology in the past but due to insurance issues has not followed up in years. Workup in 2020 showed normal prolactin and no other pituitary dysfunction except growth hormone on a borderline low level. MRI was never performed. Would like to start the workup with FSH LH testosterone, IGF-I, morning cortisol, TSH and free T4. Will do both peak and trough level of testosterone to evaluate the right dose. Further discussion will happen after the lab work. Will also schedule MRI for the completion. Elevated PSA. Fatigue- most likely hypogonadism but will rule out other causes. Anemia- received iron transfusion- getting GI work up. Right knee TKA Revision 04/28/23= Done under [facility] with LMA #5. Atraumatic Teaching & Discussion Pre-Anesthesia Teaching/Discussion Notes: Instructed NPO after midnight before surgery,except medications with 15 cc of water. Medication instructions provided according to the PAT guidelines. History Surgery Operation Date: 02/06/24 07:15 Proposed Procedures p T9-T10, T10-T11 Posterior Decompression, Instrumentation and Fusion - Damion Alcantar MD Height/Weight Height: 5 ft 6.7 in Weight: 72.3 kg Allergies Allergy/AdvReac Type Severity Reaction Status Date / Time ciprofloxacin Allergy Intermediate Rash Verified 01/01/24 13:20 Penicillins Allergy Intermediate Rash Verified 01/01/24 13:20 Medications Home Medications Medication Instructions Recorded Confirmed Last Taken pantoprazole 40 mg tablet,delayed 40 mg PO BID 05/25/18 01/01/24 05/29/23 08:00 release diphenoxylate-atropine 2.5 2 tab PO UD PRN Diarrhea 09/09/19 01/01/24 2 Months Ago mg-0.025 mg tablet ~10/21/21 ondansetron HCl 4 mg tablet 4 mg PO Q8H PRN Nausea And Vomiting 09/09/19 01/01/24 04/27/23 07:00 prasterone (dhea) 50 mg tablet 100 mg PO QAM 09/09/19 01/01/24 05/29/23 Wheeled Walker #1 ea 11/15/21 01/01/24 Unknown Medical Marijuana Card 1 dose PO UD PRN anxiety/pain 08/11/22 01/01/24 Unknown nitrofurantoin macrocrystal 100 mg 100 mg PO QAM 03/29/23 01/01/24 05/29/23 capsule saw palmetto 1 tab PO QAM 03/29/23 01/01/24 05/29/23 diphenhydramine HCl 50 mg capsule 50 mg PO HS PRN Nasal Congestion 04/27/23 01/01/24 Unknown pseudoephedrine HCl 30 mg tablet 30 mg PO Q6H PRN Nasal Congestion 04/27/23 01/01/24 Unknown (Sudafed) bupropion HCl 100 mg tablet 150 mg PO TID 05/04/23 01/01/24 05/29/23 12:00 3-in-1 Commode #1 ea 05/11/23 01/01/24 Unknown Wheelchair (Manual) #1 ea 05/11/23 01/01/24 Unknown tolterodine 2 mg tablet 2 mg PO BID #60 tabs 06/06/23 01/01/24 Unknown rizatriptan 10 mg tablet 10 mg PO DIRECTED PRN Headache 07/20/23 01/01/24 Unknown #9 tabs sildenafil 50 mg tablet (Viagra) 100 mg (2 x 50 mg) PO DIRECTED 10/10/23 01/01/24 Unknown PRN sexual activity #30 tabs ziprasidone HCl 20 mg capsule 20 mg PO BID 12/19/23 01/01/24 Unknown diazepam 10 mg tablet (Valium) 10 mg PO TID PRN Anxiety 01/01/24 01/01/24 Unknown ibuprofen 200 mg tablet 300 mg PO Q6H PRN Pain 01/01/24 01/01/24 Unknown testosterone cypionate 200 mg/mL 100 mg IM Q14D 01/03/24 Unknown intramuscular oil Past Medical History Medical History ADHD Anemia Iron deficiency recently had 4 iron infusions at [facility], most recent was 11/13/23 Anxiety Bipolar 1 disorder "not convinced" -follows with psychiatrist [facility] Borderline high blood pressure No meds Usually well controlled BPH (benign prostatic hyperplasia) Chronic low back pain Degenerative thoracic spinal stenosis Depression Difficult intravenous access Disc degeneration, lumbar Gait disturbance Uses either cane or walker to ambulate History of asthma As a child Breathing stable currently History of blood transfusion (2018) (GI bleed d/t ulcer) History of COVID-19 (04/2023) Mild, not hospitalized Symptoms resolved History of peptic ulcer disease Hx of gastroesophageal reflux (GERD) Well controlled and stable - with Tums Hx of migraine headaches several times per month Hx of sinus tachycardia no picker / packer/no current issues Hypogonadism male Since 2005 Following with endocrine- reason for upcoming MRI Low testosterone in male Lumbar stenosis with neurogenic claudication Myelomalacia Neurogenic bladder Self-caths daily ~4-6 times/day Peripheral neuropathy torso, legs bilat, mostly Left side Transverse myelitis 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 (especially in left LE mostly; sensory issues to left and right issue) Urinary retention Self-caths daily ~4-6 times/day Exercise / Class Metabolic Activity III < 4 Walking/Shop/Light housework (no chest pain or SOB flat surface, short distance ambulation- uses walker ) Past Family History Family History Sister Kidney disease Other No family history of adverse response to anesthesia Past Surgical History Surgical History (Updated 01/15/24 @ 13:22 by Lisa Elkins PA-C) History of bronchoscopy Possible - patient unaware but does not deny History of colonoscopy (11/2023) [facility] "all was good" History of esophagogastroduodenoscopy (EGD) History of knee surgery x4 right knee History of tooth extraction History of total right knee replacement Hx of elbow surgery right S/P decompression of ulnar nerve at elbow Right Status post revision of total replacement of right knee (~07/2022) Revision again 03/2023 Past Anesthesia History No Hx of Anesthesia Complications and No Family Hx of Anesthesia Complications History of PONV No Hx of PONV and No Hx of Motion Sickness Social History Smoking Status: Former smoker tobacco type: cigarettes Do You Dip or Chew Tobacco: No Smoking End Date: quit many years ago (approx 1 PPD) Hx Alcohol Use: No Hx Substance Use: Yes substance use type: marijuana Substance Use Type Other:: MEDICAL MARIJUANA CARD/INSTRUCTED TO BRING-advised by nursing Last Used Substance: Days (ago) Last Used Substance Other:: medical Marijuana (advised by nursing) Review of Systems - Cough with marijuana use- chronic and stable Patient denies chest pain, shortness of breath, dyspnea on exertion, wheezing, palpitations. No hx of seizures, stroke, NE, apnea/snoring. No hx of blood clots Physical Exam Vital Signs VITALS BP 121/79 P 93 TEMP 98.1 SP02 95% RESP 16 Constitutional no acute distress ENMT Mouth: no TMJ clicking Thyromental Distance: > or= 3.5 Finger Breadths (4.0) Mallampati Class: III Missing molars and side teeth Permanent implants to side teeth Crowns to side teeth and molars Neck + limited neck extension Respiratory normal respiratory effort; no respiratory distress Auscultation: lungs clear to auscultation bilaterally; no wheezes Cardiovascular Rate/Rhythm: regular rate and regular rhythm Heart Sounds: no murmur Vessels: no carotid bruit Musculoskeletal Spine: + pain with cervical ROM (mild) Extremities: extremities normal to inspection Psychiatric Orientation: alert Lab Results Anesthesia Preop Results Results Anesthesia Widget: WBC 7.04 K/ul (4.8-10.8) 01/15/24 Hgb 13.1 g/dl (14.0-18.0) L 01/15/24 Hct 38.3 % (42.0-52.0) L 01/15/24 Plt 245 K/uL (130-400) 01/15/24 Na 141 mmol/L (136-145) 12/20/23 K 3.6 mmol/L (3.5-5.1) 12/20/23 Cl 106 mmol/L (98-107) 12/20/23 CO2 27 mmol/L (21-32) 12/20/23 BUN 13 mg/dl (6-23) 12/20/23 Creat 1.03 mg/dl (0.6-1.4) 12/27/23 Glucose Level 96 mg/dl (70-99(Fasting)) 12/20/23 PT 10.7 Seconds (9.0-12.0) 01/15/24 PTT 29 Seconds (21-31) 01/15/24 INR 1.0 (0.9-1.1) 01/15/24 TSH 1.230 uIu/ml (0.300-4.500) 12/20/23 Free T4 0.61 ng/dl (0.61-1.60) 12/20/23 Blood Type O Positive 01/15/24 Antibody Screen NEGATIVE 01/15/24 Testing Electrocardiogram Date: 01/15/24 Findings: + NSR @ (83bpm ) Normal EKG per cardio Chest X-Ray Date: 01/15/24 FINDINGS: No lines and tubes are seen. The cardiomediastinal silhouette is normal. The lungs are clear. No evidence of pleural effusion or pneumothorax. IMPRESSION: No acute chest disease. Other Testing Chest CTA 05/24/23= No pulmonary embolism detected. Please note that evaluation of tiny branches is somewhat limited by motion artifact. Lungs: Unremarkable. No mass. No consolidation. Pleural space: Unremarkable. No significant effusion. No pneumothorax. Mild esophageal thickening which may be inflammatory in nature. Left adrenal nodule measuring up to [address] chest August 08, 2017 this was consistent with a lipid rich adenoma. This requires no further follow-up.
[2024-02-06] MEDS: LR 15ML/HR IV SCH (06:13)
[2024-02-06] MEDS ORDERED: ONDANSETRON INJ 2 MG/ML 2 ML VIAL IV PRN ×2 (06:50→13:58)
[2024-02-06] MEDS ORDERED: FLUMAZENIL 0.1 MG/1 ML 10 ML VIAL IV PRN (06:50)
[2024-02-06] MEDS ORDERED: NALOXONE HCL 0.4 MG/1 ML VIAL/CARP IV PRN ×2 (06:50→13:58)
[2024-02-06] MEDS ORDERED: ATROPINE SULFATE 0.1 MG/ML 10ML SYR IV PRN (06:50)
[2024-02-06] MEDS ORDERED: ePHEDrine sulfate 50 MG/ML AMP IV PRN (06:50)
[2024-02-06] MEDS ORDERED: PROMETHAZINE HCL 6.25 MG in SODIUM CHLORIDE 0.9% 50 ML IV PRN (06:50)
[2024-02-06] MEDS ORDERED: LABETALOL HCL IV 5 MG/ML 20ML IV PRN (06:50)
[2024-02-06] MEDS ORDERED: REMIFENTANIL HCL 1 MG VIAL IV ONE (06:55)
[2024-02-06] MEDS ORDERED: MIDAZOLAM HCL 1 MG/ML 2ML VIAL ONE (06:58)
[2024-02-06] MEDS ORDERED: SUCCINYLCHOLINE CHLORIDE 20 MG/ML 10 ML VIAL IV ONE (06:58)
[2024-02-06] MEDS ORDERED: ONDANSETRON INJ 2 MG/ML 2 ML VIAL ONE (06:58)
[2024-02-06] MEDS ORDERED: DEXAMETHASONE SOD INJ 4 MG/ML VIAL ONE ×2 (06:58→08:47)
[2024-02-06] MEDS ORDERED: LIDOCAINE 2% 2 ML VIAL/AMP(20MG/ML) INFIL ONE (06:58)
[2024-02-06] MEDS ORDERED: ROCURONIUM BROMIDE 10 MG/ML 5 ML VIAL IV ONE (06:58)
[2024-02-06] MEDS ORDERED: KETAMINE HCL 10MG/ML SYR ONE (06:59)
[2024-02-06] MEDS ORDERED: fentaNYL citrate PF 100 MCG/2 ML VIAL ONE (06:59)
[2024-02-06] MEDS ORDERED: GLYCOPYRROLATE 0.2 MG/ML VIAL ONE (07:15)
--- NOTE | 2024-02-06 07:44 | History & Physical Bridge Note ---
Date of Service February 06, 2024 History & Physical Bridge Note I have examined the patient, reviewed the History & Physical and in the interval since the performance of the History & Physical I have noted the following changes of clinical significance: no changes noted
[2024-02-06] MEDS: ceFAZolin 2000MG 2,000 MG/15 ML SYR IV SCH (08:40)
[2024-02-06] MEDS ORDERED: PHENYLEPHRINE 100MCG/ML 10ML SYR IV ONE (08:53)
[2024-02-06] MEDS ORDERED: ePHEDrine sulfate 50 MG/5 ML SYR ONE (09:01)
[2024-02-06] MEDS ORDERED: PROPOFOL IV EMULSION 10 MG/ML 20 ML VIAL IV ONE ×3 (10:20→11:35)
[2024-02-06] MEDS: ceFAZolin 2000MG 2,000 MG/15 ML SYR IV ONE (12:40)
[2024-02-06] MEDS: VANCOMYCIN HCL 1000MG/20ML VIAL ONE (13:15)
[2024-02-06] MEDS: FLOSEAL HEMOSTATIC MATRIX 5ML TOP ONE (13:15)
[2024-02-06] MEDS: BUPIVACAINE/EPINEPHRINE 0.5% MPF 1:200,000 30 ML VIAL ONE (13:15)
[2024-02-06] MEDS: THROMBIN 5000 UNITS KIT ONE (13:15)
[2024-02-06] MEDS: GELATIN SPONGE 12-7MM ONE (13:15)
--- NOTE | 2024-02-06 13:30 | Post Operative Brief Note ---
PG Immediate Post Op with CF Date of Surgery February 06, 2024 Pre & Post Diagnosis Operation Date: 02/06/24 07:15 Pre-Op Diagnosis: Leg Weakness Bilateral, Gait Disturbance, Degenerative Thoracic Spinal Stenosis, Myelomalacia Post-Op Diagnosis: Leg Weakness Bilateral, Gait Disturbance, Degenerative Thoracic Spinal Stenosis, Myelomalacia I identified the patient and participated in the time-out.: Yes Procedure Operation Date: 02/06/24 07:15 Actual Procedures p T9-T10, T10-T11 Posterior Decompression, Instrumentation and Fusion, Spinal Cord Monitoring(Not Applicable) - Damion Alcantar MD Surgeon Damion Alcantar MD Cert Occupational Therapy Asst none Estimated Blood Loss 100 Findings Consistent with Post-Op Diagnosis Specimens Specimen Description: none per surgeon Drains Swanson Catheter
[2024-02-06] MEDS: fentaNYL citrate PF 100 MCG/2 ML VIAL IV PRN (13:55)
[2024-02-06] MEDS ORDERED: bisacodyL 10 MG SUPP PR PRN (13:58)
[2024-02-06] MEDS ORDERED: LORazepam 0.5 MG in SYRINGE 0.25 ML IV PRN (13:58)
[2024-02-06] MEDS ORDERED: MAGNESIUM HYDROXIDE SUSP 30 ML UDC PO PRN (13:58)
[2024-02-06] MEDS ORDERED: METOCLOPRAMIDE HCL INJ 5 MG/ML 2 ML VIAL IV PRN (13:58)
[2024-02-06] MEDS ORDERED: hydrOXYzine HCl 25 MG TAB PO PRN (13:58)
[2024-02-06] MEDS ORDERED: ONDANSETRON 4 MG OD TAB PO PRN ×2 (13:58→16:03)
[2024-02-06] MEDS ORDERED: PROMETHAZINE HCL 12.5 MG in SODIUM CHLORIDE 0.9% 50 ML IV PRN (13:58)
[2024-02-06] MEDS ORDERED: diphenhydrAMINE Capsule 25 MG CAP PO PRN ×2 (13:58→16:00)
[2024-02-06] MEDS ORDERED: DO NOT ADMINISTER FLU VACCINE PRN (13:58)
[2024-02-06] MEDS ORDERED: SOD PHOSPHATE/SOD BIPHOSPHATE ENEMA 132 ML BTL PR PRN (13:58)
[2024-02-06] MEDS ORDERED: DO NOT ADMINISTER PNEUMOCOCCAL VACCINE PRN (13:58)
[2024-02-06] MEDS ORDERED: LORazepam 0.5 MG TAB PO PRN (13:58)
[2024-02-06] MEDS: HYDROmorphone INJ 1 MG/ML SYRINGE IV PRN (14:15)
--- NOTE | 2024-02-06 14:25 | Fluoroscopy Report ---
FL thoracic spine 2V CLINICAL HISTORY: T9-T10,T10-T11 DECOMP/FUSION COMPARISON STUDY: MRI 11/06/2023 FLUOROSCOPY TIME: 177.4 seconds FLUOROSCOPY IMAGES: 8 EXPOSURE DOSE: 87.60 mGy FINDINGS: 3 level posterior interbody laura and screw fusion. Exact numbering is not definitive based o n magnification. The hardware appears intact. Retractors are still in place on the last image submitt ed. IMPRESSION: Fluoroscopic assistance as above. ACT 112: Negative or not required by law. Electronically signed by: Jv Petty M.D. 02/06/2024 2:24 PM
[2024-02-06] MEDS: HYDROmorphone INJ 1 MG/ML SYRINGE ONE (14:47)
[2024-02-06] MEDS: HYDROmorphone INJ 0.5 MG/0.5 ML SYR IV SCH (14:50)
--- NOTE | 2024-02-06 15:11 | Anesthesiology Progress Note ---
Date of Service February 06, 2024 Anesthesia Post Procedure Vital Signs Vital Signs: Temp Pulse Pulse Resp BP Pulse Ox O2 Del Method 02/06/24 15:05 95 H 18 135/80 95 Room Air 02/06/24 14:55 37.1 C 97 H 21 123/74 97 Room Air 02/06/24 14:45 95 H 23 107/68 98 Room Air 02/06/24 14:35 100 H 22 113/70 100 Room Air 02/06/24 14:25 96 H 24 137/91 95 Nasal Cannula 02/06/24 14:15 100 H 26 H 133/86 100 Nasal Cannula 02/06/24 14:05 98 H 22 117/87 98 Nasal Cannula 02/06/24 13:55 95 H 21 129/79 97 Nasal Cannula 02/06/24 13:45 36.2 C L 101 H 18 120/82 97 Nasal Cannula 02/06/24 05:40 36.7 C 79 20 127/84 98 Room Air O2 Flow Rate 02/06/24 15:05 02/06/24 14:55 02/06/24 14:45 02/06/24 14:35 02/06/24 14:25 2 02/06/24 14:15 2 02/06/24 14:05 2 02/06/24 13:55 2 02/06/24 13:45 2 02/06/24 05:40 Pain Intensity Back: Pain Intensity: 4 Transfer of Care Handoff Completed per policy Notes Mental Status: alert / awake / arousable Patient Amnestic to Procedure: Yes Nausea / Vomiting: adequately controlled Pain: adequately controlled Airway Patency, RR, SpO2: stable & adequate BP & HR: stable & adequate Hydration State: stable & adequate Anesthetic Complications: no major complications apparent
[2024-02-06] MEDS ORDERED: DIPHENOXYLATE/ATROPINE 2.5/0.025MG TAB PO PRN (15:49)
[2024-02-06] MEDS ORDERED: diazePAM 5 MG TABLET PO PRN (15:49)
[2024-02-06] MEDS ORDERED: RIZATRIPTAN BENZOATE 10 MG TAB PO PRN (15:49)
[2024-02-06] MEDS: LACTATED RINGER'S 1,000 ML IV SCH (15:53)
[2024-02-06] MEDS: HYDROmorphone INJ 0.5 MG/0.5 ML SYR IV PRN (16:16)
--- NOTE | 2024-02-06 16:21 | Hospitalist Consultation ---
Date of Consultation February 06, 2024 Assessment & Plan (1) S/P fusion of thoracic spine: Noe Solano is a 63y/o M with PMHx of transverse myelitis, hypogonadism, bipolar disorder, major depressive disorder, RUTHY, low testosterone, ADD, tobacco use disorder, history of medical marijuana use, urinary retention, history of migraines, lumbar spine stenosis, history of iron deficiency anemia and other problems listed below who was referred to our [facility] for post-operative medical management after undergoing 'T9-T10, T10-T11 posterior decompression, instrumentation and fusion, spinal cord monitoring' by Dr. Alcantar for treatment of degenerative thoracic spinal stenosis and myelomalacia. POD#0 s/p T9-T10, T10-T11 posterior decompression, instrumentation and fusion, spinal cord monitoring w/ Dr. Alcantar. Estimated Blood Loss (EBL): 100mL Pre-Operative Hgb: 13.1 -Per ortho for pain control, wound care, anticoagulation and activities. -Continue incentive spirometry, PT/OT when appropriate per ortho. -Monitor H/H for acute blood loss anemia and transfuse blood products PRN. -CBC and CMP in AM; monitor Hgb closely, address electrolyte abnormalities PRN. 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 Has previously self-catheterized himself at home, has urinal available at bedside. DVT Prophylaxis: SCDs - As per ortho Code Status: FULL CODE PCP: Darren Flores MD Dispo: Admitted in Med/Surg - will coordinate care moving forward with Dr. Alcantar. Discharge preparation when applicable per Dr. Alcantar. Thank you for this consultation. We will follow the patient with you during their hospital stay. You can reach a member of the [facility] Team 20/02 via [employer]. Patient seen in collaboration with Dr. Lamar. Please see addendum. I spent a total of 40 minutes coordinating, documenting, and providing care for this patient excluding time spent in the performance of separately billed services. This included personally reviewing all current laboratories and imaging studies, medical reconciliation, outpatient chart review and discussion with specialists. This chart was completed in part utilizing Speech Voice Recognition Software. Grammatical errors, random word insertions, pronoun errors, and incomplete sentences are an occasional consequence of this system due to software limitations, ambient noise, and hardware issues. Any formal questions or concerns about the content, text, or information contained within the body of this dictation should be directly addressed to the provider for clarification. 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 Alert, awake and oriented x 3 His labs. Medications and imaging studies reviewed Status post T9-T10, T10-T11 posterior decompression and fusion Will continue with IV pain medications and oral narcotic His other significant medical conditions remained stable Remains otherwise medically stable I agree with and take the full responsibility of the assessment and plan as outlined above by Dee Dee Lamar History of Present Illness Reason for Consultation: Post-Operative Medical Management Requesting Physician: Damion Alcantar MD Attending Physician: Damion Alcantar MD History of Present Illness Noe Solano is a 63y/o M with PMHx of transverse myelitis, hypogonadism, bipolar disorder, major depressive disorder, RUTHY, low testosterone, ADD, tobacco use disorder, history of medical marijuana use, urinary retention, history of migraines, lumbar spine stenosis, history of iron deficiency anemia and other problems listed below who was referred to our [facility] for post-operative medical management after undergoing "T9-T10, T10-T11 posterior decompression, instrumentation and fusion, spinal cord monitoring" by Dr. Alcantar. History obtained from patient and associated chart review. Patient seen at bedside; accompanying him in the room. He received 0.5mg of IV Dilaudid before I entered the room - notes minimal improvement in his pain. Does not have a catheter in place; has a urinal at bedside but has yet to urinate. Spoke with nurse, Guero, regarding patient's pain - will be giving a dose of Percocet ordered by Dr. Alcantar. Patient mentioned that he's experienced good pain control with IV Tylenol in the past - already ordered PRN by Dr. Alcantar, will be administered. Patient notes he's not very comfortable, limited movement at this point post-operatively. Patient was having significant ambulatory difficulty at home prior to his operation today. Did not use any assistive devices at home; however, he has to stabilize himself when walking by holding on to nearby furniture when getting around. He denies any fevers, chills, body aches, SOB, chest pain or abdominal pain. Allergies Allergy/AdvReac Type Severity Reaction Status Date / Time ciprofloxacin Allergy Intermediate Rash Verified 02/06/24 05:28 Penicillins Allergy Intermediate Rash Verified 02/06/24 05:28 Home Medications Medication Instructions Recorded Confirmed Type pantoprazole 40 mg tablet,delayed 40 mg PO BID 05/25/18 02/06/24 History release diphenoxylate-atropine 2.5 2 tab PO UD PRN Diarrhea 09/09/19 02/06/24 History mg-0.025 mg tablet ondansetron HCl 4 mg tablet 4 mg PO Q8H PRN Nausea And Vomiting 09/09/19 02/06/24 History prasterone (dhea) 50 mg tablet 100 mg PO QAM 09/09/19 02/06/24 History Wheeled Walker #1 ea 11/15/21 02/06/24 Rx Medical Marijuana Card 1 dose PO UD PRN anxiety/pain 08/11/22 02/06/24 History nitrofurantoin macrocrystal 100 mg 100 mg PO QAM 03/29/23 02/06/24 History capsule saw palmetto 1 tab PO QAM 03/29/23 02/06/24 History diphenhydramine HCl 50 mg capsule 50 mg PO HS PRN Nasal Congestion 04/27/23 02/06/24 History pseudoephedrine HCl 30 mg tablet 30 mg PO Q6H PRN Nasal Congestion 04/27/23 02/06/24 History (Sudafed) bupropion HCl 100 mg tablet 150 mg PO TID 05/04/23 02/06/24 History 3-in-1 Commode #1 ea 05/11/23 02/06/24 Rx Wheelchair (Manual) #1 ea 05/11/23 02/06/24 Rx rizatriptan 10 mg tablet 10 mg PO DIRECTED PRN Headache 07/20/23 02/06/24 Rx #9 tabs sildenafil 50 mg tablet (Viagra) 100 mg (2 x 50 mg) PO DIRECTED 10/10/23 02/06/24 Rx PRN sexual activity #30 tabs ziprasidone HCl 20 mg capsule 20 mg PO BID 12/19/23 02/06/24 History diazepam 10 mg tablet (Valium) 10 mg PO TID PRN Anxiety 01/01/24 02/06/24 History ibuprofen 200 mg tablet 300 mg PO Q6H PRN Pain 01/01/24 02/06/24 History testosterone cypionate 200 mg/mL 100 mg (0.5 mL) IM .Q10 days #10 mL 01/18/24 02/06/24 Rx intramuscular oil tolterodine 2 mg tablet 2 mg PO BID #60 tabs 01/23/24 02/06/24 Rx Patient History Medical History Difficult intravenous access Chronic low back pain Low testosterone in male History of peptic ulcer disease Hx of gastroesophageal reflux (GERD) Well controlled and stable - with Tums Gait disturbance Uses either cane or walker to ambulate Neurogenic bladder Self-caths daily ~4-6 times/day Hx of sinus tachycardia 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 Degenerative thoracic spinal stenosis Myelomalacia Lumbar stenosis with neurogenic claudication Anemia Iron deficiency recently had 4 iron infusions at [facility], most recent was 11/13/23 Hypogonadism male Since 2005 Following with endocrine- reason for upcoming MRI Hx of migraine headaches several times per month Peripheral neuropathy torso, legs bilat, mostly Left side Urinary retention Self-caths daily ~4-6 times/day History of COVID-19 (04/2023) Mild, not hospitalized Symptoms resolved Disc degeneration, lumbar Bipolar 1 disorder "not convinced" -follows with psychiatrist [facility] ADHD Depression BPH (benign prostatic hyperplasia) Transverse myelitis 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 (especially in left LE mostly; sensory issues to left and right issue) History of asthma As a child Breathing stable currently History of blood transfusion (2018) (GI bleed d/t ulcer) Borderline high blood pressure No meds Usually well controlled Anxiety Surgical History Status post revision of total replacement of right knee (~07/2022) Revision again 03/2023 History of total right knee replacement S/P decompression of ulnar nerve at elbow Right Hx of elbow surgery right History of knee surgery x4 right knee History of bronchoscopy Possible - patient unaware but does not deny History of colonoscopy (11/2023) [facility] "all was good" History of esophagogastroduodenoscopy (EGD) History of tooth extraction Family History Sister Kidney disease Other No family history of adverse response to anesthesia Social History Smoking Status: Former smoker Tobacco Type: Cigarettes Smoking End Date: quit many years ago (approx 1 PPD); Second Hand Exposure: No; Do You Dip or Chew Tobacco: No; Tobacco Cessation Education Requested by Patient: No Hx Alcohol Use: No Hx Substance Use: Yes Last Used Substance: Days (ago) Last Used Substance Other:: medical Marijuana (advised by nursing) Substance Use Type Other:: MEDICAL MARIJUANA CARD/INSTRUCTED TO BRING-advised by nursing Preferred Language: German Communication Ability: Effective Communication Ability Comment: needs cueing for tasks with some assistance d/t thought process Visual Impairment: No Limitations Hearing Ability: Normal Appointment Clerk Required: No Beliefs That Will Affect Care: None Current Living Situation: Spouse Current Living Situation Comment: lives in 2 story home with Other Information That Helps Us Care for You: No Feels Safe at Home: Yes Safety Concerns: Feels Safe At This Time Assistive Devices: Cane, Glasses and Walker Review of Systems Review of Systems: At least ten systems reviewed and negative, except as noted in the HPI. Physical Exam Physical Exam: General: Laying down in bed, visibly uncomfortable, conversing appropriately, NAD, A+Ox3. HEENT: Normocephalic, atraumatic. Conjunctivae normal, anicteric sclerae. External ear and nose normal, oropharynx normal. Respiratory: Normal respiratory effort, lungs clear to auscultation, no wheeze, rales, rhonchi. No accessory muscle use. Cardiovascular: Regular rate, rhythm, no murmur, normal peripheral pulses, no BLE edema. Vessels: No JVD. Abdomen/GI: Normal bowel sounds, soft, nontender, no hepatosplenomegaly. Extremities/Musculoskeletal: Able to move b/l UE w/out issue. Pain w/ movement of b/l LE. Neurologic: PERRL, EOMI, accommodation nl, no face palsy, no dysarthria, focally intact. Skin: Was not able to visualize surgical site 2/2 pt's pain not being under control, wanted to limit movement. Results & Data Results & Data Vital Signs (Past 12 Hours) Vital Signs Temp Pulse Pulse Resp BP Pulse Ox O2 Del Method 02/06/24 15:25 101 H 20 133/84 93 Room Air 02/06/24 15:05 95 H 18 135/80 95 Room Air 02/06/24 14:55 37.1 C 97 H 21 123/74 97 Room Air 02/06/24 14:45 95 H 23 107/68 98 Room Air 02/06/24 14:35 100 H 22 113/70 100 Room Air 02/06/24 14:25 96 H 24 137/91 95 Nasal Cannula 02/06/24 14:15 100 H 26 H 133/86 100 Nasal Cannula 02/06/24 14:05 98 H 22 117/87 98 Nasal Cannula 02/06/24 13:55 95 H 21 129/79 97 Nasal Cannula 02/06/24 13:45 36.2 C L 101 H 18 120/82 97 Nasal Cannula 02/06/24 05:40 36.7 C 79 20 127/84 98 Room Air O2 Flow Rate 02/06/24 15:25 02/06/24 15:05 02/06/24 14:55 02/06/24 14:45 02/06/24 14:35 02/06/24 14:25 2 02/06/24 14:15 2 02/06/24 14:05 2 02/06/24 13:55 2 02/06/24 13:45 2 02/06/24 05:40 Diagnostic Findings Thoracic Spine X-Ray 02/06/24 00:00 FL thoracic spine 2V CLINICAL HISTORY: T9-T10,T10-T11 DECOMP/FUSION COMPARISON STUDY: MRI 11/06/2023 FLUOROSCOPY TIME: 177.4 seconds FLUOROSCOPY IMAGES: 8 EXPOSURE DOSE: 87.60 mGy FINDINGS: 3 level posterior interbody laura and screw fusion. Exact numbering is not definitive based on magnification. The hardware appears intact. Retractors are still in place on the last image submitted. IMPRESSION: Fluoroscopic assistance as above. ACT 112: Negative or not required by law. Electronically signed by: Jv Petty M.D. 02/06/2024 2:24 PM Medications Administered Lactated Ringer's (Lr) 1,000 mls @ 15 mls/hr IV .Q24H MALAIKA Stop: 02/07/24 05:59 Last Infusion: 02/06/24 07:56 Dose: Infused Documented By: Admin: 02/06/24 06:13 Dose: 15 mls/hr Documented By: SANDRA Cefazolin Sodium (Ancef 2000mg) 2,000 mg in 15 mls @ 3.75 mls/min IV PREOP MALAIKA; Protocol Stop: 02/06/24 18:00 Last Admin: 02/06/24 08:40 Dose: 3.75 mls/min Documented By: [id number] Lactated Ringer's (Lr) 1,000 mls @ 75 mls/hr IV .[id number] [facility] Stop: 03/07/24 13:59 Last Admin: 02/06/24 15:53 Dose: 75 mls/hr Documented By: EDSON Discontinued Medications Bupivacaine HCl/Epinephrine Bitart (Bupivacaine/Epinephrine 0.5% Mpf 1:200,000 30 Ml Vial) Confirm Administered Dose 30 ml .ROUTE .STK-MED ONE Stop: 02/06/24 06:59 Last Admin: 02/06/24 13:15 Dose: Not Given Documented By: LUCRECIA Fentanyl Citrate (Fentanyl Citrate Pf 100 Mcg/2 Ml Vial) 25 mcg IV Q5M PRN PRN Reason: PACU Use Only-Pain Stop: 02/06/24 14:51 Last Admin: 02/06/24 14:10 Dose: 25 mcg Documented By: Admin: 02/06/24 14:05 Dose: 25 mcg Documented By: Admin: 02/06/24 14:00 Dose: 25 mcg Documented By: Admin: 02/06/24 13:55 Dose: 25 mcg Documented By: ANABEL Gelatin (Gelatin Sponge 12-7mm) Confirm Administered Dose 2 each .ROUTE .STK-MED ONE Stop: 02/06/24 06:58 Last Admin: 02/06/24 13:15 Dose: 1 each Documented By: [id number] Hydromorphone HCl (Hydromorphone Inj 1 Mg/Ml Syringe) 0.25 mg IV Q5M PRN PRN Reason: PACU Use Only-Pain Stop: 02/06/24 14:51 Last Admin: 02/06/24 14:30 Dose: 0.25 mg Documented By: Admin: 02/06/24 14:25 Dose: 0.25 mg Documented By: Admin: 02/06/24 14:20 Dose: 0.25 mg Documented By: Admin: 02/06/24 14:15 Dose: 0.25 mg Documented By: ANABEL Hydromorphone HCl (Hydromorphone Inj 0.5 Mg/0.5 Ml Syr) 0.25 mg IV Q5M [facility] Stop: 02/06/24 15:01 Last Admin: 02/06/24 15:55 Dose: Not Given Documented By: Admin: 02/06/24 15:54 Dose: Not Given Documented By: Admin: 02/06/24 14:55 Dose: 0.25 mg Documented By: Admin: 02/06/24 14:50 Dose: 0.25 mg Documented By: ANABEL Hydromorphone HCl (Hydromorphone Inj 1 Mg/Ml Syringe) Confirm Administered Dose 1 mg .ROUTE .STK-MED ONE Stop: 02/06/24 14:46 Last Admin: 02/06/24 14:47 Dose: Not Given Documented By: ANABEL Cefazolin Sodium (Ancef 2000mg) 2,000 mg in 15 mls @ 3.75 mls/min IV ONCE ONE Stop: 02/06/24 13:31 Last Admin: 02/06/24 12:40 Dose: 3.75 mls/min Documented By: [id number] Miscellaneous ( Floseal Hemostatic Matrix 5ml) 5 ml TOP ONCE ONE Stop: 02/06/24 11:49 Last Admin: 02/06/24 13:15 Dose: 4 ml Documented By: [id number] Thrombin (Thrombin 5000 Units Kit) Confirm Administered Dose 5,000 units .ROUTE .STK-MED ONE Stop: 02/06/24 06:59 Last Admin: 02/06/24 13:15 Dose: Not Given Documented By: LUCRECIA Vancomycin HCl (Vancomycin Hcl 1000mg/20ml Vial) Confirm Administered Dose 50 mg .ROUTE .STK-MED ONE Stop: 02/06/24 06:59 Last Admin: 02/06/24 13:15 Dose: 50 mg Documented By: [id number] (2) Depression Depression Type: unspecified Qualified Code(s): F32.A - Depression, unspecified (3) Bipolar disorder Active/Remission status: remission status unspecified Qualified Code(s): F31.9 - Bipolar disorder, unspecified
[2024-02-06] MEDS: oxyCODONE/ACETAMINOPHEN 5mg/325mg TAB PO PRN (16:53)
[2024-02-06] MEDS: ACETAMINOPHEN 1,000 MG/100 ML VIAL IV PRN (18:04)
[2024-02-06] MEDS: ceFAZolin 1000MG 1,000 MG/7.5 ML SYR IV SCH (19:56)
[2024-02-06] MEDS: buPROPion HCl 75 MG TABLET PO SCH (20:13)
[2024-02-06] MEDS: DOCUSATE SODIUM/SENNA 50/8.6MG TAB PO SCH (20:13)
[2024-02-07] MEDS: HYDROmorphone INJ 0.5 MG/0.5 ML SYR IV STA (02:47)
[2024-02-07] MEDS: POLYETHYLENE (MIRALAX) 17 GM PACK PO SCH (05:07)
[2024-02-07] MEDS ORDERED: oxyCODONE HCL IR 5 MG TAB (IMMEDIATE RELEASE) PO PRN ×2 (07:33→07:36)
[2024-02-07 07:41] LABS: Albumin Globulin Ratio 1.6 (0.9-2); Albumin Level 4.1 gm/dl (3.4-5.0); BUN Creatinine Ratio 9.6 (10-20); Bilirubin,Total 0.5 mg/dl (0.2-1.0); Calcium 8.9 mg/dl (8.6-10.3); Creatinine Clr Calc Pharmacy 67.3 ml/min; Est GFR (African American) 89.4 ml/min; Est GFR (Non-African American) 77.1 ml/min; Globulin 2.5 gm/dl (2.5-4.0); Hematocrit (blood only) 37.2 % (42.0-52.0); Hemoglobin 12.3 g/dl (14.0-18.0); Mean Corpuscular Hemoglobin 30.7 pg (25.0-34.0); Mean Corpuscular Hgb Conc 33.1 g/dL (32.0-36.0); Mean Corpuscular Volume 92.8 fL (80.0-100.0); Mean Platelet Volume 10.7 fL (9.4-12.4); Platelet Count 288 K/uL (130-400); Potassium 3.2 mmol/L (3.5-5.1); RDW Coefficient of Variation 13.8 % (11.5-14.5); RDW Standard Deviation 46.6 fL (36.4-46.3); Red Blood Count 4.01 M/uL (4.70-6.10); Total Protein 6.6 gm/dl (6.0-8.3); White Blood Count 12.35 K/ul (4.8-10.8)
[2024-02-07] MEDS: nitrofurantoin macrocrystaL 50 MG CAP PO SCH (08:18)
[2024-02-07] MEDS: KETOROLAC TROMETHAMINE 15 MG/ML VIAL IV PRN (08:22)
[2024-02-07] MEDS: POTASSIUM CHLORIDE CRTAB 20 MEQ TABCR PO STA (11:37)
[2024-02-07] MEDS: oxyCODONE HCL IR 5 MG TAB (IMMEDIATE RELEASE) PO PRN (11:46)
--- NOTE | 2024-02-07 11:58 | Operative Report ---
[facility] Post Operative Report Pre & Post Diagnosis Operation Date: 02/06/24 07:15 Pre-Op Diagnosis: Leg Weakness Bilateral, Gait Disturbance, Degenerative Thoracic Spinal Stenosis, Myelomalacia Post-Op Diagnosis: Leg Weakness Bilateral, Gait Disturbance, Degenerative Thoracic Spinal Stenosis, Myelomalacia I identified the patient and participated in the time-out.: Yes Procedure Operation Date: 02/06/24 07:15 Actual Procedures p T9-T10, T10-T11 Posterior Decompression, Instrumentation and Fusion, Spinal Cord Monitoring(Not Applicable) - Damion Alcantar MD Surgeon Damion Alcantar MD Form Maker none Estimated Blood Loss 100 Findings Consistent with Post-Op Diagnosis Specimens None Description of Procedure 1. T9-10 laminectomy/decompression. (86079) 2. T10-11 laminectomy/decompression (85169) 3. T9-10 posterior arthrodesis (42882) 4. T10-11 posterior arthrodesis (62714) 5. Posterior segmental instrumentation, [id number] (47998) 6. Utilization of products of decompression for fusion purposes (77584) Patient was taken to the operating room and after adequate anesthesia he was positioned prone on the Erwin frame, the thoracolumbar region was prepared with a preprepped. Fluoroscopy was brought in and careful effort was made to count accurately to the T8-9-10 and T10-11 region, this was marked. Prep and drape was performed, began the procedure with a midline incision carried out over the spinous processes and taken down to the fascial layer on the other side of the spinous processes and then exposing the region to be addressed surgically from T9 down to T11. This was confirmed fluoroscopically, I began the procedure with then clearing off all the appropriate bony surfaces for the 3 levels, after doing so I then used fluoroscopy to make the start point for pedicle screws for starting at the T11 level where I was inserting 6.5 millimeter screws from the [employer] reline set, 45 mm in length. After that, I then inserted screws at T9 and T10 in a similar fashion using high-speed bur to make the start point followed by pedicle gearshift, and tap and then insertion of 5.5 millimeter screws at these 2 other levels 40 mm in length. All these were tested and found to be in normal limits for the testing greater than 20. Laminectomy at T9 was then performed, remove the spinous process down to the interlaminar and posterior thoracic region of T9, this included using a high-speed bur to thin these bony surfaces, a bone industrial energy engineer was utilized and the materials from the decompression and the spinous process were all collected and utilized in the fusion materials at the end of the procedure. Bilateral laminectomy was performed along the medial aspect of the facets down to the medial aspect until the canal was decompressed both laterally and posteriorly, this was to include the stenotic area surrounding the T9-10 disc space. With this completed I then moved to the left T10-11 region and performed a similar decompression along the left side removing the lamina, and along the medial aspect of the facet. With this decompression completed, I then inserted the rods, these were fashioned accordingly and setscrews were torqued, the bony surfaces were had been decorticated for the fusion surfaces. Fusion materials were then placed across T9-10 and T11 posterolaterally to complete the fusion process. The operative site had already been irrigated, I then placed Floseal and some Gelfoam over the areas of decompression followed by then vancomycin powder and closure with 0 Vicryl sutures reattaching the supraspinous ligament were available. 2-0 Vicryl sutures were then utilized all marcelle a sterile dressing was applied, patient was taken recovery room in satisfactory condition. There was no changes in the monitoring during the procedure. I attest to the content of the Intraoperative Record and any orders documented therein. Any exceptions are noted below.
--- NOTE | 2024-02-07 16:00 | Hospitalist Progress Note ---
Date of Service February 07, 2024 Assessment & Plan (1) S/P fusion of thoracic spine: Plan: Noe Solano is a 63y/o M with PMHx of transverse myelitis, hypogonadism, bipolar disorder, major depressive disorder, RUTHY, low testosterone, ADD, tobacco use disorder, history of medical marijuana use, urinary retention, history of migraines, lumbar spine stenosis, history of iron deficiency anemia and other problems listed below [facility] after undergoing 'T9-T10, T10-T11 posterior decompression, instrumentation and fusion, spinal cord monitoring' by Dr. Alcantar for treatment of degenerative thoracic spinal stenosis and myelomalacia. POD#1 s/p T9-T10, T10-T11 posterior decompression, instrumentation and fusion, spinal cord monitoring w/ Dr. Alcantar. Estimated Blood Loss (EBL): 100mL Pre-Operative Hgb: 13.1 -Per ortho for pain control, wound care, anticoagulation and activities. -Continue incentive spirometry, PT/OT when appropriate per ortho. -Monitor H/H for acute blood loss anemia and transfuse blood products PRN. -CBC and CMP in AM; monitor Hgb closely, address electrolyte abnormalities PRN. 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 (5) Neurogenic bladder: Plan: Patient on Macrodantin suppressive therapy FLOWER SHOP MANAGER - can continue. Has previously self-catheterized himself at home, has urinal available at bedside. DVT Prophylaxis: SCDs - As per ortho Code Status: FULL CODE PCP: Darren Flores MD Dispo: Admitted in Med/Surg - will coordinate care moving forward with Dr. Alcantar. Discharge preparation when applicable per Dr. Alcantar. Thank you for this consultation. We will follow the patient with you during their hospital stay. You can [facility] via [employer]. Admission and Anticipated Discharge Date Admission Date: February 06, 2024 Subjective Patient was seen and examined at bedside. patient was lying in bed, on room air, Resting comfortably, not in any acute distress. Patient reports operative site pain with PT/OT, otherwise fairly under control with pain medication. Patient reports eating okay, moving gas, no belly pain, has not moved bowel. Physical Exam Physical Exam: General: Laying down in bed, conversing appropriately, NAD, A+Ox3. HEENT: Normocephalic, atraumatic. Conjunctivae normal, anicteric sclerae. External ear and nose normal, oropharynx normal. Respiratory: Normal respiratory effort, lungs clear to auscultation, no wheeze, rales, rhonchi. No accessory muscle use. Cardiovascular: Regular rate, rhythm, no murmur, normal peripheral pulses, no BLE edema. Vessels: No JVD. Abdomen/GI: Normal bowel sounds, soft, nontender, no hepatosplenomegaly. Extremities/Musculoskeletal: no erythema, no ble edema Neurologic: PERRL, EOMI, accommodation nl, no face palsy, no dysarthria, focally intact. upper back: dressing c/d/i. Results & Data Results & Data Vital Signs (Past 12 Hours) Vital Signs Temp Pulse Pulse Resp BP Pulse Ox O2 Del Method 02/07/24 13:12 36.7 C 109 H 18 122/90 98 Room Air 02/07/24 07:59 36.9 C 99 H 18 120/82 100 Room Air 02/07/24 06:42 37.3 C 113 H 18 125/83 100 Room Air (2) Depression Depression Type: unspecified Qualified Code(s): F32.A - Depression, unspecified (3) Bipolar disorder Active/Remission status: remission status unspecified Qualified Code(s): F31.9 - Bipolar disorder, unspecified
[2024-02-07] MEDS: ACETAMINOPHEN 500 MG TAB PO PRN (17:08)
[2024-02-08] MEDS: POTASSIUM CHLORIDE 20 MEQ in LACTATED RINGER'S 1,000 ML IV ONE (06:24)
[2024-02-08] MEDS: POTASSIUM CHLORIDE CRTAB 20 MEQ TABCR PO STA (06:42)
[2024-02-08 06:54] LABS: Basophils # (auto) 0.05 K/uL (0.00-0.20); Basophils % (auto) 0.4 %; Eosinophils # (auto) 0.02 K/uL (0.00-0.50); Eosinophils % (auto) 0.2 %; Hematocrit (blood only) 31.2 % (42.0-52.0); Hemoglobin 10.6 g/dl (14.0-18.0); Immature Granulocytes # (auto) 0.06 K/uL (0.01-0.20); Immature Granulocytes % (auto) 0.5 %; Lymphocytes # (auto) 0.87 K/uL (1.20-3.40); Lymphocytes % (auto) 7.7 %; Mean Corpuscular Hemoglobin 31.1 pg (25.0-34.0); Mean Corpuscular Volume 91.5 fL (80.0-100.0); Mean Platelet Volume 10.6 fL (9.4-12.4); Monocytes # (auto) 1.25 K/uL (0.11-0.59); Neutrophils # (auto) 9.11 K/uL (1.40-6.50); Neutrophils % (auto) 80.2 %; Platelet Count 202 K/uL (130-400); RDW Coefficient of Variation 13.5 % (11.5-14.5); RDW Standard Deviation 45.4 fL (36.4-46.3); Red Blood Count 3.41 M/uL (4.70-6.10); White Blood Count 11.36 K/ul (4.8-10.8)
[2024-02-08 07:04] LABS: Calcium 8.2 mg/dl (8.6-10.3); Creatinine Clr Calc Pharmacy 65.4 ml/min; Est GFR (African American) 86.4 ml/min; Est GFR (Non-African American) 74.5 ml/min; Magnesium 1.7 mg/dl (1.7-2.4); Phosphorus 1.8 mg/dl (2.5-4.9); Potassium 3.4 mmol/L (3.5-5.1)
--- NOTE | 2024-02-08 08:08 | Communication Note ---
Date of Service: February 08, 2024 Patient noted to be febrile and tachycardic as per RN. No cough, or diarrhea symptoms. Procalcitonin noted to be elevated AP Sepsis Rule out UTI as source CS, check UA IVF, cefepime for now Will relay to AM provider.
[2024-02-08] MEDS: MAGNESIUM SULFATE / D5W 1 GM/100 ML BAG IV SCH ×2 (08:22→10:47)
[2024-02-08] MEDS: CEFEPIME 2,000 MG in SYRINGE 0 ML IV SCH (09:09)
[2024-02-08] MEDS: POT PHOSPHATE MONOBASIC W/ SOD TAB PO SCH (09:37)
[2024-02-08 10:16] LABS: Appearance Urine Clear (Clear); Bacteria Urine Automated None Seen (None Seen); Bilirubin Urine Negative (Negative); Blood Urine 2+ (Negative); Cast Urine Automated 0-2 /lpf (0-2); Color Urine Dark Yellow; Glucose Urine UA Negative (Negative); Ketones Urine Trace (Negative); Leukocyte Esterase Urine 1+ (Negative); Nitrite Urine Negative (Negative); Protein Urine 1+ (Negative); Specific Gravity Urine 1.022 (1.000-1.030); Urobilinogen Urine Negative (Negative); WBC Urine Automated 0-5 /hpf (0-5)
--- NOTE | 2024-02-08 14:06 | Orthopedic Progress Note ---
Date of Service February 08, 2024 Assessment & Plan (1) Myelomalacia: Plan: This time we are going to continue with physical therapy. We have discussed possible home health. He has declined at this time. Most likely be able to discharge home tomorrow. Admission and Anticipated Discharge Date Admission Date: February 07, 2024 Subjective Patient's thoracic pain is improving. He was much more comfortable with physical therapy today. He states his left ribs pain has also improved. Physical Exam Physical Exam: On exam patient is currently in bed. He is alert and oriented. Is good strength testing lower extremities. Results & Data Vital Signs (Past 12 Hours) Vital Signs Temp Pulse Resp BP Pulse Ox O2 Del Method 02/08/24 07:32 36.6 C 94 H 15 102/66 94 Room Air 02/08/24 05:45 37.5 C 106 H 19 90/57 L 94 Room Air 02/08/24 04:58 38.3 C H 116 H 16 119/63 95 Room Air
--- NOTE | 2024-02-08 14:51 | Hospitalist Progress Note ---
Date of Service February 08, 2024 Assessment & Plan (1) S/P fusion of thoracic spine: Plan: Noe Solano is a 63y/o M with PMHx of transverse myelitis, hypogonadism, bipolar disorder, major depressive disorder, RUTHY, low testosterone, ADD, tobacco use disorder, history of medical marijuana use, urinary retention, history of migraines, lumbar spine stenosis, history of iron deficiency anemia and other problems listed below [facility] after undergoing 'T9-T10, T10-T11 posterior decompression, instrumentation and fusion, spinal cord monitoring' by Dr. Alcantar for treatment of degenerative thoracic spinal stenosis and myelomalacia. POD#2 s/p T9-T10, T10-T11 posterior decompression, instrumentation and fusion, spinal cord monitoring w/ Dr. Alcantar. Estimated Blood Loss (EBL): 100mL Pre-Operative Hgb: 13.1 -Per ortho for pain control, wound care, anticoagulation and activities. -Continue incentive spirometry, PT/OT when appropriate per ortho. -Monitor H/H for acute blood loss anemia and transfuse blood products PRN. -CBC and CMP in AM; monitor Hgb closely, address electrolyte abnormalities PRN. Fever: Temp 38.3 C noted early AM of 02/07. Pt denied cough/lower abd pain or sore throat or chest pain or open wound. Pt w/ farias cath in. Upper back dressing c/d/i. Pt infact reports feeling better 02/07. Procal was elevated, could be likely 2/2 to acute stress to the body due to recent Sx. Could be UTI vs post op fever. HR is chronically elevated and is about the baseline today. WBC infact is downtrending. Pt started on cefepime 02/07 for concern of uti, will continue for now. follow blood culture 02/07. 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 Has previously self-catheterized himself at home, has urinal available at bedside. DVT Prophylaxis: SCDs - As per ortho Code Status: FULL CODE PCP: Darren Flores MD Dispo: Admitted in Med/Surg - will coordinate care moving forward with Dr. Alcantar. Discharge preparation once blood culture is neg for 48 hours. Thank you for this consultation. We will follow the patient with you during their hospital stay. You can reach a member [facility] via [employer]. Admission and Anticipated Discharge Date Admission Date: February 07, 2024 Subjective Patient was seen and examined at bedside. patient was lying in bed, on room air, Resting comfortably, not in any acute distress. Patient reports operative site pain getting better, fairly under control with pain medication. Last night he had one time high grade fever, denies cough/pain or burn while passing urine, reports feeling overall better. Patient reports eating okay, moving gas, no belly pain, has not moved bowel. Physical Exam Physical Exam: General: Laying down in bed, conversing appropriately, NAD, A+Ox3. HEENT: Normocephalic, atraumatic. Conjunctivae normal, anicteric sclerae. External ear and nose normal, oropharynx normal. Respiratory: Normal respiratory effort, lungs clear to auscultation, no wheeze, rales, rhonchi. No accessory muscle use. Cardiovascular: Regular rate, rhythm, no murmur, normal peripheral pulses, no BLE edema. Vessels: No JVD. Abdomen/GI: Normal bowel sounds, soft, nontender, no hepatosplenomegaly. Extremities/Musculoskeletal: no erythema, no ble edema Neurologic: PERRL, EOMI, accommodation nl, no face palsy, no dysarthria, focally intact. upper back: dressing c/d/i. Results & Data Results & Data Vital Signs (Past 12 Hours) Vital Signs Temp Pulse Resp BP BP Pulse Ox O2 Del Method 02/08/24 14:40 36.4 C L 85 15 95/63 L 96 Room Air 02/08/24 07:32 36.6 C 94 H 15 102/66 94 Room Air 02/08/24 05:45 37.5 C 106 H 19 90/57 L 94 Room Air 02/08/24 04:58 38.3 C H 116 H 16 119/63 95 Room Air (2) Depression Depression Type: unspecified Qualified Code(s): F32.A - Depression, unspecified (3) Bipolar disorder Active/Remission status: remission status unspecified Qualified Code(s): F31.9 - Bipolar disorder, unspecified
[2024-02-08] MEDS: FAMOTIDINE 20 MG TAB PO PRN (15:47)
[2024-02-08] MEDS: ALUMINUM/MAGNESIUM SUSP 30 ML UDC PO PRN (20:04)
[2024-02-08] MEDS: PANTOprazole 40 MG TAB PO SCH (21:19)
[2024-02-09 08:54] LABS: Hematocrit (blood only) 30.6 % (42.0-52.0); Hemoglobin 10.1 g/dl (14.0-18.0); Mean Corpuscular Hemoglobin 30.8 pg (25.0-34.0); Mean Corpuscular Volume 93.3 fL (80.0-100.0); Mean Platelet Volume 10.5 fL (9.4-12.4); Platelet Count 207 K/uL (130-400); RDW Coefficient of Variation 13.2 % (11.5-14.5); RDW Standard Deviation 45.1 fL (36.4-46.3); Red Blood Count 3.28 M/uL (4.70-6.10); White Blood Count 9.36 K/ul (4.8-10.8)
[2024-02-09 09:17] LABS: BUN Creatinine Ratio 14.4 (10-20); Calcium 8.5 mg/dl (8.6-10.3); Creatinine Clr Calc Pharmacy 72.2 ml/min; Est GFR (African American) 97.3 ml/min; Est GFR (Non-African American) 83.9 ml/min; Magnesium 2.1 mg/dl (1.7-2.4); Phosphorus 2.3 mg/dl (2.5-4.9); Potassium 4.4 mmol/L (3.5-5.1)
--- NOTE | 2024-02-09 11:49 | Orthopedic Progress Note ---
Date of Service February 09, 2024 Assessment & Plan (1) S/P fusion of thoracic spine: Plan: At this time we will have the patient discharged home today. Will follow-up as scheduled. Admission and Anticipated Discharge Date Admission Date: February 07, 2024 Subjective Patient's back symptoms are improving. He is tolerating physical therapy. He is anxious to return home. Physical Exam Physical Exam: On exam patient is up in bed. He is comfortable. Is neurologic intact. Results & Data Vital Signs (Past 12 Hours) Vital Signs Temp Pulse Pulse Resp BP Pulse Ox O2 Del Method 02/09/24 08:13 37.6 C H 100 H 14 124/80 95 Room Air 02/09/24 07:02 37.1 C 93 H 16 118/76 96 Room Air
--- NOTE | 2024-02-09 15:31 | Hospitalist Progress Note ---
Date of Service February 09, 2024 Assessment & Plan (1) S/P fusion of thoracic spine: Plan: Noe Solano is a 63y/o M with PMHx of transverse myelitis, hypogonadism, bipolar disorder, major depressive disorder, RUTHY, low testosterone, ADD, tobacco use disorder, history of medical marijuana use, urinary retention, history of migraines, lumbar spine stenosis, history of iron deficiency anemia and other problems listed below [facility] after undergoing 'T9-T10, T10-T11 posterior decompression, instrumentation and fusion, spinal cord monitoring' by Dr. Alcantar for treatment of degenerative thoracic spinal stenosis and myelomalacia. POD#2 s/p T9-T10, T10-T11 posterior decompression, instrumentation and fusion, spinal cord monitoring w/ Dr. Alcantar. Estimated Blood Loss (EBL): 100mL Pre-Operative Hgb: 13.1 -Per ortho for pain control, wound care, anticoagulation and activities. -Continue incentive spirometry, PT/OT when appropriate per ortho. -Monitor H/H for acute blood loss anemia and transfuse blood products PRN. -CBC and CMP in AM; monitor Hgb closely, address electrolyte abnormalities PRN. Fever: Temp 38.3 C noted early AM of 02/07. Pt denied cough/lower abd pain or sore throat or chest pain or open wound. Pt w/ farias cath in. Upper back dressing c/d/i. Pt infact reported feeling better 02/07. Procal was elevated, could be likely 2/2 to acute stress to the body due to recent Sx. Could be UTI vs post op fever. HR is chronically elevated and is about the baseline today. WBC infact is downtrending. Pt started on cefepime 02/07 for concern of uti, . follow blood culture 02/07 - no growth so far. Will treat in line of uti at DC w/ short course of antibiotic [pt was explained to hold Macrodantin until the cours e of antibiotic is finished, then can resume as prior]. Pt was explained in detail at bedside to have PCP f/u in 3-5 days to f/u on the blood culture obtained during the hospital admission to make sure he doesn't have any infection. 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 Has previously self-catheterized himself at home, has urinal available at bedside. DVT Prophylaxis: SCDs - As per ortho Code Status: FULL CODE PCP: Darren Flores MD Dispo: Admitted in Med/Surg - will coordinate care moving forward with Dr. Alcantar. Discharge preparation once blood culture is neg for 48 hours. Thank you for this consultation. We will follow the patient with you during their hospital stay. You can [facility] via [employer]. Admission and Anticipated Discharge Date Admission Date: February 07, 2024 Subjective Patient was seen and examined at bedside. patient was sitting up in bed, on room air, Resting comfortably, not in any acute distress. Patient reports operative site pain getting better, fairly under control with pain medication. Patient denies any fever, reports feeling better, no cough or other acute medical issues. Patient reports eating okay, moving gas, no belly pain. Physical Exam Physical Exam: General: Laying down in bed, conversing appropriately, NAD, A+Ox3. HEENT: Normocephalic, atraumatic. Conjunctivae normal, anicteric sclerae. External ear and nose normal, oropharynx normal. Respiratory: Normal respiratory effort, lungs clear to auscultation, no wheeze, rales, rhonchi. No accessory muscle use. Cardiovascular: Regular rate, rhythm, no murmur, normal peripheral pulses, no BLE edema. Vessels: No JVD. Abdomen/GI: Normal bowel sounds, soft, nontender, no hepatosplenomegaly. Extremities/Musculoskeletal: no erythema, no ble edema Neurologic: PERRL, EOMI, accommodation nl, no face palsy, no dysarthria, focally intact. upper back: dressing c/d/i. Results & Data Results & Data Vital Signs (Past 12 Hours) Vital Signs Temp Pulse Pulse Resp BP BP Pulse Ox 02/09/24 13:23 36.8 C 82 93 H 16 132/80 102/66 99 02/09/24 13:20 36.8 C 82 16 132/80 99 02/09/24 08:13 37.6 C H 100 H 14 124/80 95 02/09/24 07:02 37.1 C 93 H 16 118/76 96 O2 Del Method 02/09/24 13:23 02/09/24 13:20 Room Air 02/09/24 08:13 Room Air 02/09/24 07:02 Room Air (2) Depression Depression Type: unspecified Qualified Code(s): F32.A - Depression, unspecified (3) Bipolar disorder Active/Remission status: remission status unspecified Qualified Code(s): F31.9 - Bipolar disorder, unspecified
== END 2024-02-09 14:30 | disposition home health service (06) | DRG 460 ==
LOC: 3E 05:36 → ASU 05:36

== ENCOUNTER 2024-08-13 05:59 | Inpatient (IN) ==
--- NOTE | 2024-07-18 15:38 | PAT Medication Instructions ---
Medication Instructions Date of Service July 18, 2024 Home Medications Medication Instructions Recorded Wheeled Walker #1 ea 11/15/21 3-in-1 Commode #1 ea 05/11/23 Wheelchair (Manual) #1 ea 05/11/23 testosterone cypionate 200 mg/mL 100 mg (0.5 mL) IM .Q10 days #10 mL 01/18/24 intramuscular oil sildenafil 50 mg tablet (Viagra) 100 mg (2 x 50 mg) PO DIRECTED 05/27/24 PRN sexual activity #30 tabs nitrofurantoin macrocrystal 100 mg 100 mg PO DAILY #90 caps 06/26/24 capsule (Macrodantin) pantoprazole 40 mg tablet,delayed release 40 mg PO BID diphenoxylate-atropine 2.5 mg-0.025 mg tablet (Lomotil) 2 tab PO UD PRN Diarrhea ondansetron HCl 4 mg tablet 4 mg PO Q8H PRN Nausea And Vomiting Medical Marijuana Card 1 dose PO UD PRN anxiety/pain saw palmetto 2 tab PO QAM 4] diphenhydramine HCl 50 mg capsule 50 mg PO HS PRN Nasal Congestion pseudoephedrine HCl 30 mg tablet (Sudafed) 30 mg PO Q6H PRN Nasal Congestion ziprasidone HCl 20 mg capsule (Geodon) 20 mg PO BID diazepam 10 mg tablet (Valium) 10 mg PO QID PRN Anxiety ibuprofen 200 mg tablet 600 mg PO Q6H PRN Pain testosterone cypionate 200 mg/mL intramuscular oil 100 mg (0.5 mL) IM acetaminophen 500 mg tablet (Acetaminophen Extra Strength) 1,000 mg PO Q6H PRN Pain bupropion HCl 75 mg tablet 150 mg PO TID rizatriptan 10 mg tablet (Maxalt) 10 mg PO DIRECTED PRN Headache tolterodine 2 mg tablet (Detrol) 2 mg PO BID sildenafil 50 mg tablet (Viagra) 100 mg (2 x 50 mg) PO DIRECTED PRN sexual activity nitrofurantoin macrocrystal 100 mg capsule (Macrodantin) 100 mg PO DAILY aspirin 81 mg tablet 81 mg PO QAM Continue as directed nitrofurantoin macrocrystal 100 mg capsule (Macrodantin) 100 mg PO DAILY ASK your surgeon for instructions ibuprofen 200 mg tablet 600 mg PO Q6H PRN Pain ASK your prescriber and surgeon testosterone cypionate 200 mg/mL intramuscular oil 100 mg (0.5 mL) IM aspirin 81 mg tablet 81 mg PO QAM STOP taking 2 weeks before surgery saw palmetto 2 tab PO QAM STOP taking 24 hours before surgery sildenafil 50 mg tablet (Viagra) 100 mg (2 x 50 mg) PO DIRECTED PRN sexual activity DO NOT take the morning of surgery diphenoxylate-atropine 2.5 mg-0.025 mg tablet (Lomotil) 2 tab PO UD PRN Diarrhea Medical Marijuana Card 1 dose PO UD PRN anxiety/pain pseudoephedrine HCl 30 mg tablet (Sudafed) 30 mg PO Q6H PRN Nasal Congestion tolterodine 2 mg tablet (Detrol) 2 mg PO BID Take morning of surgery With a small sip of water, OTHERWISE NOTHING TO EAT OR DRINK AFTER MIDNIGHT: pantoprazole 40 mg tablet,delayed release 40 mg PO BID ondansetron HCl 4 mg tablet 4 mg PO Q8H PRN Nausea And Vomiting (if needed) ziprasidone HCl 20 mg capsule (Geodon) 20 mg PO BID diazepam 10 mg tablet (Valium) 10 mg PO QID PRN Anxiety (if needed) acetaminophen 500 mg tablet (Acetaminophen Extra Strength) 1,000 mg PO Q6H PRN Pain (if needed) bupropion HCl 75 mg tablet 150 mg PO TID rizatriptan 10 mg tablet (Maxalt) 10 mg PO DIRECTED PRN Headache (if needed) Take evening before surgery pantoprazole 40 mg tablet,delayed release 40 mg PO BID diphenoxylate-atropine 2.5 mg-0.025 mg tablet (Lomotil) 2 tab PO UD PRN Diarrhea (if needed) ondansetron HCl 4 mg tablet 4 mg PO Q8H PRN Nausea And Vomiting (if needed) Medical Marijuana Card 1 dose PO UD PRN anxiety/pain (if needed) diphenhydramine HCl 50 mg capsule 50 mg PO HS PRN Nasal Congestion (if needed) pseudoephedrine HCl 30 mg tablet (Sudafed) 30 mg PO Q6H PRN Nasal Congestion (if needed) ziprasidone HCl 20 mg capsule (Geodon) 20 mg PO BID diazepam 10 mg tablet (Valium) 10 mg PO QID PRN Anxiety (if needed) acetaminophen 500 mg tablet (Acetaminophen Extra Strength) 1,000 mg PO Q6H PRN Pain (if needed) bupropion HCl 75 mg tablet 150 mg PO TID rizatriptan 10 mg tablet (Maxalt) 10 mg PO DIRECTED PRN Headache (if needed) tolterodine 2 mg tablet (Detrol) 2 mg PO BID Other Notes If you have any questions please call us at [phone] or [phone] or [phone] or [phone]
--- NOTE | 2024-07-29 13:55 | Anesthesiology Consultation ---
Date of Service July 29, 2024 Assessment & Plan (1) Encounter for pre-operative examination: Chart Review Chart Review: Acceptable Risk for Surgery (pending routine neuro office visit 08/01/24) and Patient seen in Pre Admission Testing - Awaiting routine neuro appt ([place]) 08/01/24 Neurogenic bladder- self caths 4-6x daily Per PAT appt on 07/29/24, no recent illness/disease exposures, illness related symptoms, or recent illness/disease positive tests. Will leave to surgeon's discretion if preop Covid testing needed T9-T11 decompression and fusion 02/06/24= Done under GA with Grade 1 view with MAC #4. ETT #8.0. Teaching & Discussion Pre-Anesthesia Teaching/Discussion Notes: Instructed NPO after midnight before surgery,except medications with 15 cc of water. Medication instructions provided according to the [facility] guidelines. History Surgery Operation Date: 08/13/24 07:15 Proposed Procedures p L2-L3, L3-L4 Lateral Fusion with Interbody Cage and Posterior Instrumentation 3-6 Levels - Damion Alcantar MD Height/Weight Height: 5 ft 7 in Weight: 74.3 kg Allergies Allergy/AdvReac Type Severity Reaction Status Date / Time ciprofloxacin Allergy Intermediate Rash Verified 07/18/24 14:30 Penicillins Allergy Intermediate Hives Verified 07/18/24 14:30 Medications Home Medications Medication Instructions Recorded Confirmed Last Taken pantoprazole 40 mg tablet,delayed 40 mg PO BID 05/25/18 07/18/24 03/27/24 05:15 release diphenoxylate-atropine 2.5 2 tab PO UD PRN Diarrhea 09/09/19 07/18/24 2 Months Ago mg-0.025 mg tablet (Lomotil) ~10/21/21 ondansetron HCl 4 mg tablet 4 mg PO Q8H PRN Nausea And Vomiting 09/09/19 07/18/24 02/05/24 23:00 Wheeled Walker #1 ea 11/15/21 02/14/24 Unknown Medical Marijuana Card 1 dose PO UD PRN anxiety/pain 08/11/22 07/18/24 03/26/24 19:00 saw palmetto 2 tab PO QAM 03/29/23 07/18/24 03/26/24 08:00 diphenhydramine HCl 50 mg capsule 50 mg PO HS PRN Nasal Congestion 04/27/23 07/18/24 Unknown pseudoephedrine HCl 30 mg tablet 30 mg PO Q6H PRN Nasal Congestion 04/27/23 07/18/24 2 Months Ago (Sudafed) ~12/03/23 3-in-1 Commode #1 ea 05/11/23 02/14/24 Unknown Wheelchair (Manual) #1 ea 05/11/23 02/14/24 Unknown ziprasidone HCl 20 mg capsule 20 mg PO BID 12/19/23 07/18/24 03/26/24 11:00 (Geodon) diazepam 10 mg tablet (Valium) 10 mg PO QID PRN Anxiety 01/01/24 07/18/24 03/26/24 23:00 ibuprofen 200 mg tablet 600 mg PO Q6H PRN Pain 01/01/24 07/18/24 02/01/24 testosterone cypionate 200 mg/mL 100 mg (0.5 mL) IM .Q10 days #10 mL 01/18/24 07/18/24 03/21/24 intramuscular oil acetaminophen 500 mg tablet 1,000 mg PO Q6H PRN Pain 03/15/24 07/18/24 03/26/24 23:00 (Acetaminophen Extra Strength) bupropion HCl 75 mg tablet 150 mg PO TID 03/15/24 07/18/24 03/27/24 05:15 rizatriptan 10 mg tablet (Maxalt) 10 mg PO DIRECTED PRN Headache 03/27/24 07/18/24 03/20/24 tolterodine 2 mg tablet (Detrol) 2 mg PO BID 03/27/24 07/18/24 03/27/24 05:15 sildenafil 50 mg tablet (Viagra) 100 mg (2 x 50 mg) PO DIRECTED 05/27/24 07/18/24 Unknown PRN sexual activity #30 tabs nitrofurantoin macrocrystal 100 mg 100 mg PO DAILY #90 caps 06/26/24 07/18/24 Unknown capsule (Macrodantin) aspirin 81 mg tablet 81 mg PO QAM 07/18/24 07/18/24 Unknown Past Medical History Medical History (Updated 07/29/24 @ 16:25 by Lisa Elkins PA-C) ADHD Anemia Iron deficiency recently had 4 iron infusions at [facility], most recent was 11/13/23 Anxiety Bipolar 1 disorder "not convinced" -follows with psychiatrist [facility] Borderline high blood pressure No meds Usually well controlled BPH (benign prostatic hyperplasia) Cervical pain (neck) Chronic low back pain Decreased range of motion of neck causes pain, no significant issues with flexion and extension; does have intermittent issues with turning head side to side Degenerative thoracic spinal stenosis Depression Difficult intravenous access Disc degeneration, lumbar Gait disturbance Due to lumbar issues Uses either cane or walker to ambulate History of asthma As a child Breathing stable currently History of blood transfusion (2018) (GI bleed d/t ulcer) History of COVID-19 (04/2023) Mild, not hospitalized Symptoms resolved History of peptic ulcer disease Hx of gastroesophageal reflux (GERD) On Protonix- GERD aggravated the past several days Hx of migraine headaches several times per month Hypogonadism male Since 2005 Following with endocrine Low testosterone in male Lumbar stenosis with neurogenic claudication Myelomalacia Neurogenic bladder Self-caths daily ~4-6 times/day Peripheral neuropathy torso, legs bilat, mostly Left side Scoliosis of lumbar region due to degenerative disease of spine in adult Transverse myelitis 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 (especially in left LE mostly) Urinary retention Self-caths daily ~4-6 times/day Exercise / Class Metabolic Activity III < 4 Walking/Shop/Light housework (no chest pain or SOB with flat surface ambulation- uses cane to ambulate ) Past Family History Family History Sister Kidney disease Other No family history of adverse response to anesthesia Past Surgical History Surgical History History of bronchoscopy Possible - patient unaware but does not deny History of colonoscopy (11/2023) [facility] "all was good" History of esophagogastroduodenoscopy (EGD) History of knee surgery x3 right knee History of tooth extraction History of total right knee replacement Hx of elbow surgery right S/P decompression of ulnar nerve at elbow Right S/P fusion of thoracic spine Status post revision of total replacement of right knee (~07/2022) Revision again 03/2023 Past Anesthesia History No Hx of Anesthesia Complications and No Family Hx of Anesthesia Complications History of PONV No Hx of PONV Social History Smoking Status: Former smoker tobacco type: cigarettes Do You Dip or Chew Tobacco: No Smoking End Date: quit around 2017 (was 1 PPD x 5-10 years Hx Alcohol Use: No Hx Substance Use: Yes substance use type: marijuana Substance Use Type Other:: medical marijuana only Last Used Substance: Days (ago) Last Used Substance Other:: medical Marijuana (advised on policy) Review of Systems - Reflux - aggravated the past few days - will follow up with PCP and PAT if symptoms persist or get worse (on Protonix) Patient denies chest pain, shortness of breath, dyspnea on exertion, cough, wheezing, palpitations. No hx of seizures, stroke, RI, apnea/snoring. No hx of blood clots Physical Exam Vital Signs VITALS BP 116/74 P 99 TEMP 98.1 SP02 95% RESP 16 Constitutional no acute distress ENMT Mouth: no TMJ clicking Thyromental Distance: > or= 3.5 Finger Breadths (3.5) Mallampati Class: III Partial denture to bottom Crowns and permanent implants to side teeth and molars Dental work 07/29/24- had post put in to hold partial denture in place- currently on oral abx- no current issues - surgeon's office updated and will leave to surgeon's discretion on how to proceed Neck + limited neck extension Respiratory normal respiratory effort; no respiratory distress Auscultation: lungs clear to auscultation bilaterally; no wheezes Cardiovascular Rate/Rhythm: regular rate and regular rhythm Heart Sounds: no murmur Vessels: no carotid bruit Musculoskeletal Spine: + pain with cervical ROM (mild) Extremities: extremities normal to inspection - decreased left hip flexion due to hx of transverse myelitis in the past Psychiatric Orientation: alert Lab Results Anesthesia Preop Results Results Anesthesia Widget: WBC 7.84 K/ul (4.8-10.8) 07/29/24 Hgb 13.7 g/dl (14.0-18.0) L 07/29/24 Hct 39.7 % (42.0-52.0) L 07/29/24 Plt 263 K/uL (130-400) 07/29/24 Na 136 mmol/L (136-145) 07/29/24 K 4.2 mmol/L (3.5-5.1) 07/29/24 Cl 104 mmol/L (98-107) 07/29/24 CO2 25 mmol/L (21-32) 07/29/24 BUN 16 mg/dl (6-23) 07/29/24 Creat 1.12 mg/dl (0.6-1.4) 07/29/24 Glucose Level 108 mg/dl (70-99(Fasting)) H 07/29/24 PT 10.8 Seconds (9.0-12.0) 07/29/24 PTT 29 Seconds (21-31) 07/29/24 INR 1.0 (0.9-1.1) 07/29/24 Blood Type O Positive 07/29/24 Antibody Screen NEGATIVE 07/29/24 Testing Electrocardiogram Date: 01/15/24 Findings: + NSR @ (83bpm ) Normal EKG per cardio Chest X-Ray Date: 01/15/24 FINDINGS: No lines and tubes are seen. The cardiomediastinal silhouette is normal. The lungs are clear. No evidence of pleural effusion or pneumothorax. IMPRESSION: No acute chest disease. Other Testing Pituitary MRI 02/02/24= No acute abnormality is seen in particular there is no evidence of pituitary adenoma.
[2024-08-13] MEDS: ACETAMINOPHEN 500 MG TAB PO SCH (06:47)
[2024-08-13] MEDS: LR 60ML/HR IV SCH (06:47)
[2024-08-13] MEDS: LR 15ML/HR IV SCH (06:47)
[2024-08-13] MEDS: GABAPENTIN 600 MG DOSE PO SCH (06:48)
[2024-08-13] MEDS ORDERED: ROCURONIUM BROMIDE 10 MG/ML 5 ML VIAL IV ONE (07:03)
[2024-08-13] MEDS ORDERED: PROPOFOL IV EMULSION 10 MG/ML 100 ML VIAL IV ONE ×2 (07:03→12:35)
[2024-08-13] MEDS ORDERED: PROPOFOL IV EMULSION 10 MG/ML 20 ML VIAL IV ONE (07:03)
[2024-08-13] MEDS ORDERED: DEXAMETHASONE SOD INJ 4 MG/ML VIAL ONE (07:03)
[2024-08-13] MEDS ORDERED: SUCCINYLCHOLINE CHLORIDE 20 MG/ML 10 ML VIAL IV ONE (07:03)
[2024-08-13] MEDS ORDERED: ONDANSETRON INJ 2 MG/ML 2 ML VIAL ONE (07:03)
[2024-08-13] MEDS ORDERED: MIDAZOLAM HCL 1 MG/ML 2ML VIAL ONE ×2 (07:07→07:40)
[2024-08-13] MEDS ORDERED: fentaNYL citrate PF 100 MCG/2 ML VIAL ONE (07:07)
--- NOTE | 2024-08-13 07:16 | History & Physical Bridge Note ---
Date of Service August 13, 2024 History & Physical Bridge Note I have examined the patient, reviewed the History & Physical and in the interval since the performance of the History & Physical I have noted the following changes of clinical significance: no changes noted
[2024-08-13] MEDS ORDERED: PHENYLEPHRINE HCL 10 MG/ML VIAL ONE (07:18)
[2024-08-13] MEDS ORDERED: REMIFENTANIL HCL 1 MG VIAL IV ONE (07:24)
[2024-08-13] MEDS ORDERED: ePHEDrine sulfate 50 MG/ML AMP IV PRN (08:11)
[2024-08-13] MEDS ORDERED: ATROPINE SULFATE 0.1 MG/ML 10ML SYR IV PRN (08:11)
[2024-08-13] MEDS ORDERED: NALOXONE HCL 0.4 MG/1 ML VIAL/CARP IV PRN ×2 (08:11→14:21)
[2024-08-13] MEDS ORDERED: PROMETHAZINE HCL 6.25 MG in SODIUM CHLORIDE 0.9% 50 ML IV PRN (08:11)
[2024-08-13] MEDS ORDERED: FLUMAZENIL 0.1 MG/1 ML 10 ML VIAL IV PRN (08:11)
[2024-08-13] MEDS ORDERED: ONDANSETRON INJ 2 MG/ML 2 ML VIAL IV PRN ×2 (08:11→14:21)
[2024-08-13] MEDS: ceFAZolin 2000MG 2,000 MG/15 ML SYR IV SCH (08:30)
[2024-08-13] MEDS ORDERED: ePHEDrine sulfate 50 MG/5 ML SYR ONE (09:17)
[2024-08-13] MEDS ORDERED: ceFAZolin 330 MG/ML 1 GM VIAL ONE (12:20)
[2024-08-13] MEDS: ceFAZolin 2000MG 2,000 MG/15 ML SYR IV ONE (12:24)
[2024-08-13] MEDS ORDERED: ceFAZolin 330 MG/ML 1 GM VIAL IM ONE (12:30)
[2024-08-13] MEDS: BUPIVACAINE/EPINEPHRINE 0.5% MPF 1:200,000 30 ML VIAL ONE ×2 (12:47→13:45)
[2024-08-13] MEDS: VANCOMYCIN HCL 1000MG/20ML VIAL ONE (12:47)
[2024-08-13] MEDS: THROMBIN 5000 UNITS KIT ONE (13:45)
[2024-08-13] MEDS: GELATIN SPONGE 12-7MM ONE (13:45)
[2024-08-13] MEDS ORDERED: DexMEDEtomidine HCL IV 100 MCG/ML VIAL IV ONE (13:54)
[2024-08-13] MEDS ORDERED: HYDROmorphone INJ 2 MG/ML SYR/VIAL ONE (13:55)
[2024-08-13] MEDS ORDERED: bisacodyL 10 MG SUPP PR PRN (14:21)
[2024-08-13] MEDS ORDERED: SOD PHOSPHATE/SOD BIPHOSPHATE ENEMA 132 ML BTL PR PRN (14:21)
[2024-08-13] MEDS ORDERED: METOCLOPRAMIDE HCL INJ 5 MG/ML 2 ML VIAL IV PRN (14:21)
[2024-08-13] MEDS ORDERED: FAMOTIDINE 20 MG TAB PO PRN (14:21)
[2024-08-13] MEDS ORDERED: DO NOT ADMINISTER FLU VACCINE PRN (14:21)
[2024-08-13] MEDS ORDERED: ALUMINUM/MAGNESIUM SUSP 30 ML UDC PO PRN (14:21)
[2024-08-13] MEDS ORDERED: MAGNESIUM HYDROXIDE SUSP 30 ML UDC PO PRN (14:21)
[2024-08-13] MEDS ORDERED: DO NOT ADMINISTER PNEUMOCOCCAL VACCINE PRN (14:21)
[2024-08-13] MEDS ORDERED: LORazepam 2 MG/1 ML VIAL IV PRN (14:21)
[2024-08-13] MEDS ORDERED: PROMETHAZINE 12.5 MG/50.5 ML BAG IV PRN (14:21)
[2024-08-13] MEDS ORDERED: diphenhydrAMINE Capsule 25 MG CAP PO PRN (14:21)
[2024-08-13] MEDS ORDERED: LORazepam 0.5 MG TAB PO PRN (14:21)
[2024-08-13] MEDS ORDERED: hydrOXYzine HCl 25 MG TAB PO PRN (14:21)
--- NOTE | 2024-08-13 14:21 | Post Operative Brief Note ---
PG Immediate Post Op with CF Date of Surgery August 13, 2024 Pre & Post Diagnosis Operation Date: 08/13/24 07:30 Pre-Op Diagnosis: (1) Scoliosis of lumbar region due to degenerative disease of spine in adult (2) Disc degeneration, lumber (3) Lumbar stenosis with neurogenic claudication (4) Chronic low back pain Post-Op Diagnosis: (1) Scoliosis of lumbar region due to degenerative disease of spine in adult (2) Disc degeneration, lumber (3) Lumbar stenosis with neurogenic claudication (4) Chronic low back pain I identified the patient and participated in the time-out.: Yes Procedure Operation Date: 08/13/24 07:30 Actual Procedures p L2-L3, L3-L4 Lateral Fusion with Interbody Cage and Posterior Instrumentation 3-6 Levels, Spinal Cord Monitoring(Not Applicable) - Damion Alcantar MD Surgeon Damion Alcantar MD Hat Renovator none Estimated Blood Loss 75 Findings Consistent with Post-Op Diagnosis Specimens Specimen Description: No specimen per surgeon Drains Swanson Catheter (Inserted prior to procedure by MOHINDER Dewey without difficulty. Clear yellow urine noted. To be removed at end of procedure.)
[2024-08-13] MEDS ORDERED: ONDANSETRON 4 MG OD TAB PO PRN (14:35)
--- NOTE | 2024-08-13 14:49 | Fluoroscopy Report ---
FL lumbar spine 2-3V CLINICAL HISTORY: LATERAL FUSION WITH INTERBODYchronic low back pain COMPARISON STUDY: CT 08/13/2024 FLUOROSCOPY TIME: 4.44 minutes FLUOROSCOPY IMAGES: 19 EXPOSURE DOSE: 158.55 mGy FINDINGS: 2 level discectomy changes with posterior interbody laura and screw fusion noted at what appe ars to be the L2-L3 and L3-L4 levels. IMPRESSION: Fluoroscopic assistance as above. ACT 112: Negative or not required by law. Electronically signed by: Jv Petty M.D. 08/13/2024 2:47 PM
[2024-08-13] MEDS: fentaNYL citrate PF 100 MCG/2 ML VIAL IV PRN (14:55)
--- NOTE | 2024-08-13 15:15 | Anesthesiology Progress Note ---
Date of Service August 13, 2024 Anesthesia Post Procedure Vital Signs Vital Signs: Temp Pulse Resp BP Pulse Ox O2 Del Method 08/13/24 06:19 Room Air 08/13/24 06:19 36.7 C 90 20 146/89 H 94 Room Air Pain Intensity Left Lower Back: Pain Intensity: 4 Transfer of Care Handoff Completed per policy Notes Mental Status: alert / awake / arousable Patient Amnestic to Procedure: Yes Nausea / Vomiting: adequately controlled Pain: adequately controlled Airway Patency, RR, SpO2: stable & adequate BP & HR: stable & adequate Hydration State: stable & adequate Anesthetic Complications: no major complications apparent
[2024-08-13] MEDS: HYDROmorphone INJ 2 MG/ML SYR/VIAL ONE (15:20)
[2024-08-13] MEDS ORDERED: HYDROmorphone INJ 0.5 MG/0.5 ML SYR IV PRN (15:22)
[2024-08-13] MEDS: oxyCODONE/ACETAMINOPHEN 5mg/325mg TAB PO PRN (17:03)
[2024-08-13] MEDS: HYDROmorphone INJ 1 MG/ML SYRINGE IV PRN (20:11)
[2024-08-13] MEDS: ceFAZolin 1000MG 1,000 MG/7.5 ML SYR IV SCH (20:12)
[2024-08-13] MEDS: DOCUSATE SODIUM/SENNA 50/8.6MG TAB PO SCH (20:12)
[2024-08-13] MEDS: PANTOprazole 40 MG TAB PO SCH (20:12)
[2024-08-13] MEDS: ACETAMINOPHEN 1,000 MG/100 ML VIAL IV PRN (21:58)
[2024-08-14] MEDS: diazePAM 5 MG TABLET PO PRN (03:20)
[2024-08-14] MEDS: POLYETHYLENE (MIRALAX) 17 GM PACK PO SCH (05:19)
--- NOTE | 2024-08-14 06:21 | Hospitalist Consultation ---
Date of Consultation August 14, 2024 Assessment & Plan (1) Scoliosis of lumbar region due to degenerative disease of spine in adult: Final Assessment and Recommendations as follows : Lumbar scoliosis/lumbar spinal stenosis Status post surgery Postop tachycardia hx transverse myelitis chronic anemia (baseline hemoglobin of 13) hypogonadism on periodic testosterone injections neurogenic bladder/recurrent UTIs on chronic Macrodantin suppression Rx, CIC at home chronic pain ADD, anxiety/mood disorder, at baseline past tobacco abuse Med/tele transfer IVF Follow a.m. electrolytes DVT prophylaxis SCDs as per postop orders Thank you very much for this consultation. Dr. Ma will follow patient's progress. Dr. Alcantar agreeable to med/tele transfer following discussion over the phone. Text document was generated using [employer] voice recognition software. It may contain grammatical or spelling errors. Kindly contact undersigned for clarification of any documentation item in question. History of Present Illness Reason for Consultation: Medical management Requesting Physician: Dr. Alcantar Attending Physician: Damion Alcantar MD History of Present Illness PCP : Dr. Flores History obtained from patient and records. Medical history significant for transverse myelitis, chronic anemia (baseline hemoglobin of 13), hypogonadism, neurogenic bladder, recurrent UTIs on chronic Macrodantin suppression Rx, chronic pain, ADD, anxiety/mood disorder, past tobacco abuse. Last confinement January 2024 under Orthopedics spine service for elective thoracic spine surgery for myelomalacia. Patient underwent elective lumbar surgery yesterday. Patient pain somewhat uncontrolled after procedure. Denies headache, chest pain, SOB. No fever, no chills. Medical History as above Surgical History : Back surgery, knee surgery, Family History : Heart disease Personal/Social history : Past tobacco abuse, no EtOH intake, disabled Allergies Allergy/AdvReac Type Severity Reaction Status Date / Time ciprofloxacin Allergy Intermediate Rash Verified 08/13/24 06:15 Penicillins Allergy Intermediate Hives Verified 08/13/24 06:15 Home Medications Medication Instructions Recorded Confirmed Type pantoprazole 40 mg tablet,delayed 40 mg PO BID 05/25/18 08/13/24 History release ondansetron HCl 4 mg tablet 4 mg PO Q8H PRN Nausea And Vomiting 09/09/19 08/13/24 History Wheeled Walker #1 ea 11/15/21 08/07/24 Rx Medical Marijuana Card 1 dose PO UD PRN anxiety/pain 08/11/22 08/13/24 History saw palmetto 2 tab PO QAM 03/29/23 08/13/24 History 3-in-1 Commode #1 ea 05/11/23 08/07/24 Rx Wheelchair (Manual) #1 ea 05/11/23 08/07/24 Rx ziprasidone HCl 20 mg capsule 20 mg PO BID 12/19/23 08/13/24 History (Geodon) diazepam 10 mg tablet (Valium) 10 mg PO QID PRN Anxiety 01/01/24 08/13/24 History ibuprofen 200 mg tablet 600 mg PO Q8H PRN Pain 01/01/24 08/14/24 History acetaminophen 500 mg tablet 1,000 mg PO Q6H PRN Pain 03/15/24 08/13/24 History (Acetaminophen Extra Strength) bupropion HCl 75 mg tablet 150 mg PO TID 03/15/24 08/13/24 History tolterodine 2 mg tablet (Detrol) 2 mg PO BID 03/27/24 08/13/24 History sildenafil 50 mg tablet (Viagra) 100 mg (2 x 50 mg) PO DIRECTED 05/27/24 08/13/24 Rx PRN sexual activity #30 tabs nitrofurantoin macrocrystal 100 mg 100 mg PO DAILY #90 caps 06/26/24 08/13/24 Rx capsule (Macrodantin) aspirin 81 mg tablet 81 mg PO QAM 07/18/24 08/13/24 History testosterone cypionate 200 mg/mL 100 mg (0.5 mL) IM .Q10 days #10 mL 08/01/24 08/13/24 Rx intramuscular oil rizatriptan 10 mg tablet See Rx Instructions PO .COMPLEX #9 08/02/24 08/13/24 Rx tabs simethicone 250 mg capsule 250 mg PO DAILY PRN Abdominal 08/14/24 08/14/24 History Discomfort triamcinolone acetonide 0.1 % applic topical 2XD 08/14/24 History topical cream vitamin B complex 1 cap PO DAILY 08/14/24 08/14/24 History Patient History Medical History Scoliosis of lumbar region due to degenerative disease of spine in adult Decreased range of motion of neck Cervical pain (neck) Difficult intravenous access Chronic low back pain Low testosterone in male History of peptic ulcer disease Hx of gastroesophageal reflux (GERD) Gait disturbance Neurogenic bladder Degenerative thoracic spinal stenosis Myelomalacia Lumbar stenosis with neurogenic claudication Anemia Hypogonadism male Hx of migraine headaches Peripheral neuropathy Urinary retention History of COVID-19 (04/2023) Disc degeneration, lumbar Bipolar 1 disorder ADHD Depression BPH (benign prostatic hyperplasia) Transverse myelitis History of asthma History of blood transfusion (2018) Borderline high blood pressure Anxiety Surgical History S/P fusion of thoracic spine Status post revision of total replacement of right knee (~07/2022) History of total right knee replacement S/P decompression of ulnar nerve at elbow Hx of elbow surgery History of knee surgery History of bronchoscopy History of colonoscopy (11/2023) History of esophagogastroduodenoscopy (EGD) History of tooth extraction Family History Sister Kidney disease Other No family history of adverse response to anesthesia Social History Smoking Status: Former smoker Tobacco Type: Cigarettes Smoking End Date: 2016; Second Hand Exposure: No; Do You Dip or Chew Tobacco: No; Tobacco Cessation Education Requested by Patient: No Hx Alcohol Use: No Hx Substance Use: Yes Last Used Substance: Days (ago) Last Used Substance Other:: 08/12/2024 Substance Use Type Other:: medical marijuana only Preferred Language: Congolese Communication Ability: Effective Communication Ability Comment: needs cueing for tasks with some assistance d/t thought process Visual Impairment: No Limitations Hearing Ability: Normal Test And Turn Up Technician Required: No Beliefs That Will Affect Care: None Current Living Situation: Spouse Current Living Situation Comment: lives in 2 story home with Other Information That Helps Us Care for You: No Feels Safe at Home: Yes Safety Concerns: Feels Safe At This Time Assistive Devices: Glasses and Walker Review of Systems Review of Systems: As per HPI, all other systems reviewed and negative Physical Exam Physical Exam: GENERAL: Slightly uncomfortable, pleasant, no respiratory distress SKIN: Pallor, warm HEENT: Pale palpebral conjunctivae, no ptosis, dry buccal mucosa NECK : Supple, no tenderness CHEST : CTA, no tenderness HEART : Tachycardic, no obvious murmurs ABDOMEN: Some distention, nontender EXTREMITIES : No LE swelling/tenderness, no other conspicuous deformities noted NEUROLOGIC : Coherent, no facial asymmetry, no other gross focality Results & Data Results & Data Vital Signs (Past 12 Hours) Vital Signs Temp Pulse Pulse Resp BP BP Pulse Ox 08/14/24 02:46 36.7 C 112 H 18 107/74 94 08/13/24 23:21 37.5 C 110 H 18 102/67 95 08/13/24 20:00 08/13/24 19:55 36.4 C L 112 H 18 116/75 99 08/13/24 18:41 36.6 C 120 H 18 121/81 97 O2 Del Method O2 Flow Rate 08/14/24 02:46 Room Air 08/13/24 23:21 Room Air 08/13/24 20:00 Nasal Cannula 3 08/13/24 19:55 Nasal Cannula 3 08/13/24 18:41 Nasal Cannula 2 Laboratory Results Laboratory Results Blood Type O Positive 08/13/24 06:21 Antibody Screen NEGATIVE 08/13/24 06:21 Crossmatch See Detail 08/13/24 06:21 Impressions Lumbar Spine X-Ray 08/13/24 07:30 FL lumbar spine 2-3V CLINICAL HISTORY: LATERAL FUSION WITH INTERBODYchronic low back pain COMPARISON STUDY: CT 08/13/2024 FLUOROSCOPY TIME: 4.44 minutes FLUOROSCOPY IMAGES: 19 EXPOSURE DOSE: 158.55 mGy FINDINGS: 2 level discectomy changes with posterior interbody laura and screw fusion noted at what appears to be the L2-L3 and L3-L4 levels. IMPRESSION: Fluoroscopic assistance as above. ACT 112: Negative or not required by law. Electronically signed by: Jv Petty M.D. 08/13/2024 2:47 PM Diagnostic Findings EKG as per my interpretation :Rate 125, sinus tachycardia, normal axis, no ischemia
[2024-08-14 07:32] LABS: Basophils # (auto) 0.02 K/uL (0.00-0.20); Basophils % (auto) 0.2 %; Eosinophils # (auto) 0.01 K/uL (0.00-0.50); Eosinophils % (auto) 0.1 %; Hematocrit (blood only) 39.5 % (42.0-52.0); Hemoglobin 13.7 g/dl (14.0-18.0); Immature Granulocytes # (auto) 0.04 K/uL (0.01-0.20); Immature Granulocytes % (auto) 0.4 %; Lymphocytes # (auto) 0.97 K/uL (1.20-3.40); Lymphocytes % (auto) 9.1 %; Mean Corpuscular Hemoglobin 30.8 pg (25.0-34.0); Mean Corpuscular Hgb Conc 34.7 g/dL (32.0-36.0); Mean Corpuscular Volume 88.8 fL (80.0-100.0); Mean Platelet Volume 10.3 fL (9.4-12.4); Monocytes % (auto) 6.5 %; Neutrophils # (auto) 8.96 K/uL (1.40-6.50); Neutrophils % (auto) 83.7 %; Platelet Count 213 K/uL (130-400); RDW Coefficient of Variation 13.5 % (11.5-14.5); RDW Standard Deviation 43.5 fL (36.4-46.3); Red Blood Count 4.45 M/uL (4.70-6.10)
[2024-08-14] MEDS: SODIUM CHLORIDE 0.9% 1,000 ML IV ONE (07:47)
[2024-08-14 08:07] LABS: Calcium 8.8 mg/dl (8.6-10.3); Magnesium 1.8 mg/dl (1.7-2.4); Potassium 3.8 mmol/L (3.5-5.1)
[2024-08-14 08:13] LABS: BUN Creatinine Ratio 14.4 (10-20); Creatinine Clr Calc Pharmacy 64.5 ml/min
[2024-08-14 08:26] LABS: Thyroid Stimulating Hormone 1.682 uIu/ml (0.300-4.500)
[2024-08-14] MEDS: HYDROmorphone INJ 1 MG/ML SYRINGE IV PRN ×2 (09:19→16:04)
[2024-08-14] MEDS: POTASSIUM CHLORIDE CRTAB 20 MEQ TABCR PO STA (09:20)
[2024-08-14] MEDS: OXYBUTYNIN CHLORIDE XL 5 MG TABCR PO SCH (09:20)
[2024-08-14] MEDS: buPROPion HCl 75 MG TABLET PO SCH (09:20)
[2024-08-14] MEDS: VITAMIN B COMPLEX TAB PO SCH (09:21)
[2024-08-14] MEDS: MAGNESIUM SULFATE / D5W 1 GM/100 ML BAG IV ONE (09:41)
[2024-08-14] MEDS: nitrofurantoin macrocrystaL 50 MG CAP PO SCH (11:07)
--- NOTE | 2024-08-14 14:41 | Hospitalist Progress Note ---
Date of Service August 14, 2024 Assessment & Plan (1) Scoliosis of lumbar region due to degenerative disease of spine in adult: Plan: Lumbar scoliosis/lumbar spinal stenosis Status post surgery Sinus tachycardia Patient underwent L2-L3, L3-L4 lateral fusion with interbody cage and posterior instrumentation 3-6 levels on 08/13/2024 EKG reviewed; sinus tachycardia with no ST or T wave changes. Telemetry reviewed; no arrhythmia. Denies any palpitation, chest pain or shortness of breath. Prior history also suggests tachycardia which was asymptomatic. Reports that he is heart rate is in 50s to 60s while in PCP's office Tachycardia likely related with pain/anxiety; optimize pain medication, muscle relaxant. Continue telemonitoring for any arrhythmia Rest per primary Review electrolytes Chronic conditions: hx transverse myelitis chronic anemia (baseline hemoglobin of 13) hypogonadism on periodic testosterone injections neurogenic bladder/recurrent UTIs on chronic Macrodantin suppression Rx, CIC at home chronic pain ADD, anxiety/mood disorder, at baseline past tobacco abuse Full code DVT prophylaxis as per primary Please note the above document was generated using voice recognition software. It may contain grammatical, syntax or spelling errors. Any formal questions or concerns about the content, text or information contained within the body of this dictation should be directly addressed to the provider for clarification Admission and Anticipated Discharge Date Admission Date: August 13, 2024 Subjective Patient seen and examined at bedside. He is sitting up on a chair at the side of the bed. He reports having back spasms and lower back. Telemetry reviewed; sinus tachycardia. Review of heart rate in past hospitalization also reviewed ; periods of tachycardia. The sinus tachycardia likely related with pain/anxiety. Review of Systems Review of Systems: All systems reviewed & are unremarkable except as noted in Subjective Physical Exam Physical Exam: Constitutional: Alert oriented x 3; not in distress. Respiratory: normal respiratory effort, lungs clear to auscultation, no wheeze, rales, rhonchi. Normal insp/exp effort, no accessory muscle use Cardiovascular: RRR, no murmur, no edema Vessels: no JVD or carotid bruit Chest: normal inspection of chest Abdomen: normal bowel sounds, soft, nontender, no hepatosplenomegaly Musculoskeletal: Bandages over lower back; clean/dry and intact. Neurologic: PERRL, EOMI, accommodation nl, no face palsy, no dysarthria CN's II- XI intact bilaterally and moves all extremities Psychiatric: A+Ox3, euthymic affect Results & Data Results & Data Vital Signs (Past 12 Hours) Vital Signs Temp Pulse Pulse Pulse Resp BP BP 08/14/24 11:16 37.1 C 115 H 18 132/90 08/14/24 09:45 37.3 C 120 H 18 109/75 08/14/24 08:51 120 H 08/14/24 07:06 37.4 C 130 H 16 103/62 08/14/24 06:35 37.3 C 124 H 20 113/68 08/14/24 02:46 36.7 C 112 H 18 107/74 Pulse Ox O2 Del Method 08/14/24 11:16 99 Room Air 08/14/24 09:45 95 Room Air 08/14/24 08:51 08/14/24 07:06 95 Room Air 08/14/24 06:35 94 Room Air 08/14/24 02:46 94 Room Air
[2024-08-14] MEDS: KETOROLAC TROMETHAMINE 15 MG/ML VIAL IV ONE (23:19)
[2024-08-15 00:22] LABS: Adenovirus PCR Not Detected (NotDetected); Bordetella parapertussis PCR Not Detected (NotDetected); Bordetella pertussis PCR Not Detected (NotDetected); Chlamydia pneumoniae PCR Not Detected (NotDetected); Coronavirus 229E PCR Not Detected (NotDetected); Coronavirus CoV-2 (COVID19)PCR Not Detected (NotDetected); Coronavirus HKU1 PCR Not Detected (NotDetected); Coronavirus NL63 PCR Not Detected (NotDetected); Coronavirus OC43PCR Not Detected (NotDetected); Human Metapneumovirus PCR Not Detected (NotDetected); Influenza A PCR Not Detected (NotDetected); Influenza B PCR Not Detected (NotDetected); Mycoplasma pneumoniae PCR Not Detected (NotDetected); Parainfluenza Virus 1 PCR Not Detected (NotDetected); Parainfluenza Virus 2 PCR Not Detected (NotDetected); Parainfluenza Virus 3 PCR Not Detected (NotDetected); Parainfluenza Virus 4 PCR Not Detected (NotDetected); Respiratory Syncytial VirusPCR Not Detected (NotDetected); Rhinovirus/Enterovirus PCR Not Detected (NotDetected)
[2024-08-15] MEDS: NSS + 20MEQ KCL 20 MEQ/1,000 ML BAG IV ONE (01:06)
--- NOTE | 2024-08-15 01:26 | XRay Report ---
Exam(s): XR CXR 1 VIEW EXAM: XR Chest, 1 View CLINICAL HISTORY: Reason for exam: cough, fever. TECHNIQUE: Frontal view of the chest. COMPARISON: January 15, 2024 FINDINGS: Lungs: Slight vascular and interstitial prominence, increased since previous. No overt edema or focal consolidation is seen. Pleural space: Unremarkable. No pneumothorax. Heart: The cardiac silhouette is upper normal in size. Mediastinum: Unremarkable. Normal mediastinal contour. Bones/joints: New spinal instrumentation in the lower thoracic spine. No acute fracture. Upper abdomen: Unremarkable as visualized. No pneumoperitoneum under the diaphragm. IMPRESSION: 1. Slight vascular and interstitial prominence, increased since previous. No overt edema or focal consolidation is seen. 2. New spinal instrumentation in the lower thoracic spine. Electronically signed by: Nicola Ngo MD 08/15/24 01:25 AM
--- NOTE | 2024-08-15 03:59 | Communication Note ---
Date of Service: August 15, 2024 Overnight developments 06/14, 11 PM Patient noted to be febrile with with new dry cough symptoms. No chest pain or SOB. No abdominal pain, dysuria, or diarrhea symptoms Chest x-ray as per my interpretation atelectasis Respiratory BioFire negative 06/15, 3:40 AM SBP 80s, heart rate 110s. Patient with usual postop back complaints. No abdominal pain but abdomen distended as per RN. Last BM was 08/13, prior to surgery. UA WBC esterase, nitrate positive Ap Sepsis secondary to complicated UTI History neurogenic bladder CS, Cefepime
[2024-08-15] MEDS: LACTULOSE SYRUP 30 GM/45 ML UDP PO STA (04:42)
[2024-08-15] MEDS: DOCUSATE SODIUM/SENNA 50/8.6MG TAB PO SCH (04:42)
[2024-08-15 04:50] LABS: Basophils # (auto) 0.04 K/uL (0.00-0.20); Basophils % (auto) 0.3 %; Eosinophils # (auto) 0.05 K/uL (0.00-0.50); Eosinophils % (auto) 0.4 %; Hematocrit (blood only) 38.3 % (42.0-52.0); Hemoglobin 12.7 g/dl (14.0-18.0); Immature Granulocytes # (auto) 0.03 K/uL (0.01-0.20); Immature Granulocytes % (auto) 0.3 %; Lymphocytes # (auto) 1.39 K/uL (1.20-3.40); Mean Corpuscular Hemoglobin 30.2 pg (25.0-34.0); Mean Corpuscular Hgb Conc 33.2 g/dL (32.0-36.0); Mean Platelet Volume 10.2 fL (9.4-12.4); Monocytes % (auto) 10.4 %; Neutrophils # (auto) 8.83 K/uL (1.40-6.50); Neutrophils % (auto) 76.6 %; Platelet Count 188 K/uL (130-400); RDW Coefficient of Variation 13.3 % (11.5-14.5); RDW Standard Deviation 44.1 fL (36.4-46.3); Red Blood Count 4.21 M/uL (4.70-6.10); White Blood Count 11.54 K/ul (4.8-10.8)
[2024-08-15 04:52] LABS: Appearance Urine Clear (Clear); Bacteria Urine Automated None Seen (None Seen); Bilirubin Urine 1+ (Negative); Blood Urine Negative (Negative); Color Urine Dark Yellow; Glucose Urine UA Negative (Negative); Ketones Urine Trace (Negative); Leukocyte Esterase Urine 1+ (Negative); Nitrite Urine Positive (Negative); Protein Urine 1+ (Negative); Specific Gravity Urine 1.031 (1.000-1.030); Urobilinogen Urine Negative (Negative); pH Urine 5.5 (4.5-7.5)
[2024-08-15 04:56] LABS: BUN Creatinine Ratio 11.8 (10-20); Calcium 8.6 mg/dl (8.6-10.3); Creatinine Clr Calc Pharmacy 56.4 ml/min; Magnesium 2.1 mg/dl (1.7-2.4)
[2024-08-15] MEDS: CEFEPIME 2000MG 2,000 MG/20 ML SYR IV SCH (05:28)
--- NOTE | 2024-08-15 08:29 | Orthopedic Progress Note ---
Date of Service August 15, 2024 Subjective Patient seen and examined, notes improvement in low back pain, had some spasms but relieved with diazepam. Incision sites unremarkable, no focal motor weakness. Impression: Postop day 2 from L2-3 L3-4 instrumentation fusion. Plan: Discussed with patient that if he clears physical therapy today and medical assessment with hospitalist, can potentially discharge home later this afternoon which is what the patient would prefer. Will communicate with the hospitalist regarding this potential option. Review of Systems All systems reviewed & are unremarkable except as noted in HPI & below. Physical Exam . Results & Data Results & Data Laboratory Results . Diagnostic Findings . PG Care Time/CCT Total # of Minutes Spent Total Time Spent with Patient: Total time spent is greater than 50% in coordination of care (as documented) at patient's floor/unit and/or counseling patient: Coding Level of Care Code 38956 Post Operative Follow-Up
--- NOTE | 2024-08-15 10:11 | Hospitalist Progress Note ---
Date of Service August 15, 2024 Assessment & Plan (1) Scoliosis of lumbar region due to degenerative disease of spine in adult: Plan: Lumbar scoliosis/lumbar spinal stenosis Status post surgery Sinus tachycardia Patient underwent L2-L3, L3-L4 lateral fusion with interbody cage and posterior instrumentation 3-6 levels on 08/13/2024 EKG reviewed; sinus tachycardia with no ST or T wave changes. Telemetry reviewed; no arrhythmia. Denies any palpitation, chest pain or shortness of breath. Prior history also suggests tachycardia which was asymptomatic. Reports that he is heart rate is in 50s to 60s while in PCP's office Tachycardia likely related with pain/anxiety; optimize pain medication, muscle relaxant. Continue telemonitoring for any arrhythmia Rest per primary Review electrolytes Fever Patient febrile upto 39C overnight on 08/14. CXR doesn't show any infiltrates Urine analysis suggestive possible infection Biofire negative Continue empiric antibiotic for now until culture results are available. Chronic conditions: hx transverse myelitis chronic anemia (baseline hemoglobin of 13) hypogonadism on periodic testosterone injections neurogenic bladder/recurrent UTIs on chronic Macrodantin suppression Rx, CIC at home chronic pain ADD, anxiety/mood disorder, at baseline past tobacco abuse Full code DVT prophylaxis as per primary Please note the above document was generated using voice recognition software. It may contain grammatical, syntax or spelling errors. Any formal questions or concerns about the content, text or information contained within the body of this dictation should be directly addressed to the provider for clarification Admission and Anticipated Discharge Date Admission Date: August 13, 2024 Subjective Patient seen and examined at bedside. He reports that the pain is well- controlled currently with valium and analgesics. Febrile upto 39C overnight Review of Systems Review of Systems: All systems reviewed & are unremarkable except as noted in Subjective Physical Exam Physical Exam: Constitutional: Alert oriented x 3; not in distress. Respiratory: normal respiratory effort, lungs clear to auscultation, no wheeze, rales, rhonchi. Normal insp/exp effort, no accessory muscle use Cardiovascular: RRR, no murmur, no edema Vessels: no JVD or carotid bruit Chest: normal inspection of chest Abdomen: normal bowel sounds, soft, nontender, no hepatosplenomegaly Musculoskeletal: Bandages over lower back; clean/dry and intact. Neurologic: PERRL, EOMI, accommodation nl, no face palsy, no dysarthria CN's II- XI intact bilaterally and moves all extremities Psychiatric: A+Ox3, euthymic affect Results & Data Results & Data Vital Signs (Past 12 Hours) Vital Signs Temp Pulse Pulse Pulse Resp BP BP 08/15/24 07:36 37.6 C H 111 H 18 128/81 08/15/24 07:33 105 H 08/15/24 03:41 37.3 C 110 H 18 86/56 L 08/15/24 00:00 37.6 C H 08/14/24 23:22 102 H 18 123/84 08/14/24 23:08 39.1 C H Pulse Ox O2 Del Method 08/15/24 07:36 95 Room Air 08/15/24 07:33 08/15/24 03:41 95 Room Air 08/15/24 00:00 08/14/24 23:22 95 Room Air 08/14/24 23:08
--- NOTE | 2024-08-15 13:08 | Operative Report ---
PG Post Operative Report Pre & Post Diagnosis Operation Date: 08/13/24 07:30 Pre-Op Diagnosis: (1) Scoliosis of lumbar region due to degenerative disease of spine in adult (2) Disc degeneration, lumber (3) Lumbar stenosis with neurogenic claudication (4) Chronic low back pain Post-Op Diagnosis: (1) Scoliosis of lumbar region due to degenerative disease of spine in adult (2) Disc degeneration, lumber (3) Lumbar stenosis with neurogenic claudication (4) Chronic low back pain I identified the patient and participated in the time-out.: Yes Procedure Operation Date: 08/13/24 07:30 Actual Procedures p L2-L3, L3-L4 Lateral Fusion with Interbody Cage and Posterior Instrumentation 3-6 Levels, Spinal Cord Monitoring(Not Applicable) - Damion Alcantar MD Surgeon Damion Alcantar MD Tax Audit Manager none Estimated Blood Loss 75 Findings Consistent with Post-Op Diagnosis Specimens none Description of Procedure 1. L2-3 right lateral interbody arthrodesis. (69068) 2. L3-4 right lateral interbody arthrodesis. (04274) 3. L2-3 insertion of intervertebral device, NuVasive cohere 8 x 18 x 50 mm lordotic. (26057) 4. L3-4 insertion of intervertebral device, NuVasive cohere 10 x 18 x 55 mm lordotic. (27556) 5. Insertion of posterior segmental instrumentation, Medtronic Voyager L2L3- L4. (92609) 6. Stereotactic CT-guided navigation for spinal instrumentation. (74831) Patient taken the operating room and after adequate esthesia was carefully position in the left lateral decubitus position right side up for a lateral approach to the L2-3 and L3-4 levels. He was secured to the table in routine fashion using fluoroscopic assistance, and after making adjustments to the table, the approximate location for the incision was marked after preprep, followed by prepping and draping. I began the procedure with a linear transverse incision over the iliac crest right side, and through here and carefully advanced to the subcutaneous Yvrose's into the retroperitoneal region where I was able to palpate the psoas on the right side and advanced initial dilator from the NuVasive set down onto the midportion of the L3-4 level locating the start point using monitoring, I was able to advance the initial guidewire. After doing so, I then proceeded with the usual dilators, and then advance up to the insertion apparatus which is advanced down to the lateral aspect of the disc base at L3-4. Fluoroscopy was used to confirm the position followed by then inspection with the probe and insertion of the Jamshidi needle using fluoroscopic assistance. Once in place, I then incised the lateral annulus and began the procedure with removal of disc material through the disc b ase followed by dilators to improve the overall alignment as it was collapsed on the right side. Continued effort was made removing any remaining degenerative disc material and then followed by trials selecting the size cage as noted. Thorough discectomy was completed, this included removal of cartilage from the endplates, and then the cage was then inserted after inserting some fusion materials into the disc space followed by insertion of the cage with excellent position on AP and lateral views. The access apparatus was then removed after insertion of some vancomycin powder, no issues were noted, and then I then used fluoroscopy to advance the initial dilator to the L2-3 level through the same incision. Once docking and checking with monitoring I inserted the guidewire in a similar fashion followed by the dilators and insertion of the access apparatus. The lateral aspect of the annulus was incised followed by then additional dilators and removal of degenerative disc material, with both these levels by inserting dilators and the trials were able to improve the overall alignment of the vertebral bodies. Second cage was then obtained with a size as noted at the L2-3 level inserted without issue after insertion of remaining fusion materials. Final inspection revealed no issues noted vancomycin powder up in place, the operative site was closed using 0 Vicryl suture, 2-0 Vicryl suture marcelle for the skin. Sterile dressing was applied, the patient was repositioned on the Francis table, I preprepped was performed followed by then prepping and draping. A small stab incision was made over the right iliac crest from here I inserted the initial pin into the iliac crest followed by the array, and the CT scan spin was then performed using the C arm. Once this was complete d and the data obtained, I then utilized the navigation instruments to begin the procedure with insertion of instrumentation. Assistance for starting at the L4 level, I used the instrumentation to katarzyna for the area of the incision followed by incision of the skin approximately 10 to 15 mm in length on the left side followed by insertion of the bur. I was able to make the start point followed by insertion of the pedicle probe advanced using the navigation system into the L4 vertebral body first on the left side and then on the right side using the navigation instrumentation. This was followed by a 6.5 mm tap and then insertion of 6.5 millimeter screws from the Medtronic set, 50 mm on the left and 45 mm on the right. I then moved up to the L3 level and performed a similar function with 2 stab incisions out of the side of midline, using the navigation started with a high-speed bur, insertion of the gearshift probe and then tap with insertion of 45 mm screws 6.5 mm in diameter at both locations. This was then followed by additional screws placed then at L2 in a similar fashion without issue noted. Monitoring was then checked to note no issues greater than 20 readings at all screws. We then began the spin for the CT scan, and upon conclusion this noted all the hardware to be in proper position. The measuring device was then utilized for estimation for the laura lengths on both sides, these were obtained I did slight contouring to the rods, these were then inserted percutaneously through all rods, and with these in place I then torqued down the inferior most screw and did slight compression on the left side at the L2-3 level and to a lesser degree at L3-4 and slight distraction on the right side at the same levels and with this as able to get excellent correction of the scoliosis at these 2 levels. All this torque screws were then tightened down properly, he towers were then removed, the operative sites were irrigated vancomycin powder was placed along with some injection of some local followed by then closure using 0 and 2-0 Vicryl sutures and marcelle for the skin. The insertion site was also closed for the array, sterile dressing was applied, the patient tolerated procedure well was taken recovery room satisfactory position. I attest to the content of the Intraoperative Record and any orders documented therein. Any exceptions are noted below.
--- NOTE | 2024-08-15 13:20 | Discharge Summary ---
Date of Service August 15, 2024 Admission HPI (Per Admitting) Lumbar stenosis, scoliosis. Principal Diagnosis Same as "Discharge Diagnosis" noted below under Discharge Instructions. Discharge Exam . Discharge Data Consultations 08/13/24 14:21 Consult Hospitalist Routine Procedures Performed Operation Date: 08/13/24 07:30 Actual Procedures p L2-L3, L3-L4 Lateral Fusion with Interbody Cage and Posterior Instrumentation 3-6 Levels, Spinal Cord Monitoring(Not Applicable) - Damion Alcantar MD Ordered Studies 08/13/24 07:30 CT lumbar spine wo con Routine [place] lumbar spine 2-3V Routine Hospital Course (1) Scoliosis of lumbar region due to degenerative disease of spine in adult: Surgery (2) Disc degeneration, lumbar: PG Care Time/CCT Total # of Minutes Spent Total Time Spent with Patient: Total time spent is greater than 50% in coordination of care (as documented) at patient's floor/unit and/or counseling patient: Discharge Plan Discharge Items Patient Disposition: Home - Home Health Services Reason For Visit: Lumbar Stenosis with Neurogenic Claudication, Disc Discharge Diagnosis: Lumbar stenosis, scoliosis. Activity: As commented below Lifting: No more than 10 pounds Bathing: May shower/bathe in 3 days Exercise/Sports: Wait until after follow-up appointment Weightbearing: Full weightbearing Non-emergency contact: Surgeon Call non-emergency contact if: your pain is worsening Follow-up/Referrals: Darren Flores MD [Primary Care Provider] - (Date & Time 08/23/2024 10:40 AM Provider: Darren Flores MD Family Practice [facility] [place] ) Damion Alcantar MD [Surgeon] - 08/28/24 11:30 am Diet: Regular Addtl Attending Provider Instructions: No bending lifting twisting. Follow-up in 2 weeks. Pending Studies at Discharge: No Stand-Alone Forms: [employer], Smoking Cessation Medications and DC Order Prescriptions: Continued (DME) 3-in-1 Commode Misc See Rx Instructions .MEDSUPPLY Qty: 1 0RF Rx Instructions: As directed (DME) Wheelchair (Manual) Device See Rx Instructions .MEDSUPPLY Qty: 1 0RF Rx Instructions: As directed sildenafil [Viagra] 50 mg tablet 100 mg PO DIRECTED PRN (Reason: sexual activity) Qty: 30 3RF Rx Instructions: administer 1 hour before sexual activity nitrofurantoin macrocrystal [Macrodantin] 100 mg capsule 100 mg PO DAILY Qty: 90 0RF testosterone cypionate 200 mg/mL oil 100 mg IM .Q10 days Qty: 10 2RF rizatriptan 10 mg tablet See Rx Instructions PO .COMPLEX Qty: 9 5RF Rx Instructions: take 1 tab at onset of headache; if no relief may repeat 1 tab after at least 2 hrs; max = 3 tabs/24 hr PO (DME) Wheeled Walker [facility] [place] See Rx Instructions .ROUTE .MEDSUPPLY Qty: 1 0RF Rx Instructions: As directed ondansetron HCl 4 mg tablet 4 mg PO Q8H PRN (Reason: Nausea And Vomiting) ziprasidone HCl [Geodon] 20 mg capsule 20 mg PO BID Rx Instructions: give with food (meal/snack) pantoprazole 40 mg Tablet,Delayed Release (Dr/Ec) 40 mg PO BID Medical Marijuana Card 1 dose PO UD PRN (Reason: anxiety/pain) caroline rodriguez 2 tab PO QAM diazepam [Valium] 10 mg Tablet 10 mg PO QID PRN (Reason: Anxiety) bupropion HCl 75 mg Tablet 150 mg PO TID acetaminophen [Acetaminophen Extra Strength] 500 mg Tablet 1,000 mg PO Q6H PRN (Reason: Pain) tolterodine [Detrol] 2 mg tablet 2 mg PO BID Rx Instructions: TAKE 1 TABLET BY MOUTH TWICE A DAY aspirin 81 mg Tablet 81 mg PO QAM vitamin B complex Capsule 1 cap PO DAILY simethicone 250 mg Capsule 250 mg PO DAILY PRN (Reason: Abdominal Discomfort) triamcinolone acetonide 0.1 % Cream TOPICAL 2XD Held ibuprofen 200 mg Tablet 600 mg PO Q8H PRN (Reason: Pain) Hold Instructions: Resume on 10/21/24. No Action oxycodone-acetaminophen [Percocet] 5-325 mg tablet 1 - 2 tab PO Q4H PRN (Reason: pain) Qty: 50 0RF Discharge Orders: Discharge Order (Routine); Ordered 08/16/24 Ordered By: Thomas Ma Admission Data Admit Date/Time: 08/13/24 14:21 Attending Provider: Damion Alcantar Admit Provider: Damion Alcantar Primary Care Provider: Darren Flores Other Providers: [facility]; [facility] Other Interventions: Discharge Summary Assessment (RN) Last Done: 08/16/24 13:39
--- NOTE | 2024-08-15 21:56 | Electrocardiogram Report ---
Test Reason : Blood Pressure : */* mmHG Vent. Rate : 125 BPM Atrial Rate : 125 BPM P-R Int : 164 ms QRS Dur : 88 ms QT Int : 292 ms P-R-T Axes : 45 11 47 degrees QTcB Int : 421 ms Poor data quality, interpretation may be adversely affected Sinus tachycardia Otherwise normal ECG When compared with ECG of 15-Jan-2024 13:36, Vent. rate has increased by 42 bpm Confirmed by Duane Chan ([id number]) on 08/15/2024 9:56:49 PM Referred By: Damion Alcantar Confirmed By: Duane Chan
[2024-08-16] MEDS: HYDROmorphone INJ 0.5 MG/0.5 ML SYR IV PRN (01:17)
[2024-08-16] MEDS: RIZATRIPTAN BENZOATE 10 MG TAB PO PRN (01:37)
[2024-08-16] MEDS: ONDANSETRON 4 MG OD TAB PO PRN (05:26)
[2024-08-16 07:56] VITALS: RESP 20; TEMP 99.9; O2SAT 94
[2024-08-16] MEDS: ACETAMINOPHEN 500 MG TAB PO PRN (08:24)
[2024-08-16] MEDS: HYDROmorphone INJ 1 MG/ML SYRINGE IV PRN (08:24)
--- NOTE | 2024-08-16 09:27 | Orthopedic Progress Note ---
Date of Service August 16, 2024 Assessment & Plan (1) S/P lumbar fusion: Plan: Patient orthopedically stable for discharge. Discussed w/ patient that possibly his low grade fever is due to a virus; Medicine recommending f/u w/ PCP next week. Plan: 1. DVT prophylaxis w/ regular ambulation/mobilization. 2. PT/OT at home as taught while inpatient. 3. Rx for Percocet sent to pharmacy by Dr. Alcantar; may also utilize OTC acetaminophen. 4. Dressing changes and showering per discharge instructions section. 5. Disposition - plan to D/C home today once cleared by PT/OT and medical service. [facility] per case mgmt note. 6. F/u as scheduled w/ Dr. Alcantar for first post-op visit. Admission and Anticipated Discharge Date Admission Date: August 13, 2024 Subjective Patient feeling better today. Still w/ pain, but controlled w/ meds. He has some concern over a "low grade fever". He wishes to return home as opposed to rehab. Physical Exam Physical Exam: GENERAL: Speech and cognition is intact. Mood and affect is appropriate. Does not appear in acute distress. HEAD: Normocephalic; atraumatic. CHEST: Regular chest respiration and excursion. EXTREMITIES: Sensation intact to light touch of the bilateral L2-S1 dermatomes. Diminished sensation to right anteromedial proximal thigh and groin. BACK: Midline lumbar surgical incision noted with no evidence of erythema, drainage, or abnormal warmth. Dermabond Prineo mesh is intact. NEURO: Awake, alert, and oriented x 3. LOWER EXTREMITIES: Negative straight leg raise bilaterally. R ankle dorsiflexion 5/5; ankle plantar flexion 5/5; EHL 5/5 L ankle dorsiflexion 4-/5 (baseline); ankle plantar flexion 5/5; EHL 4-/5 (baseline) Results & Data Vital Signs (Past 12 Hours) Vital Signs Temp Pulse Pulse Pulse Resp BP BP 08/16/24 07:56 37.7 C H 107 H 20 131/86 08/16/24 07:41 118 H 08/16/24 02:37 37.6 C H 112 H 16 125/78 08/15/24 22:40 37.4 C 106 H 16 114/76 08/15/24 21:44 104 H Pulse Ox O2 Del Method 08/16/24 07:56 94 Room Air 08/16/24 07:41 08/16/24 02:37 96 Room Air 08/15/24 22:40 95 Room Air 08/15/24 21:44
--- NOTE | 2024-08-16 12:45 | Ultrasound Report ---
BILATERAL LOWER EXTREMITY VENOUS DOPPLER HISTORY: Acute pain is on the lower legs rule out DVT COMPARISON STUDY: None. FINDINGS: There is normal compressibility, flow, and augmentation within the bilateral lower extremit y deep venous systems. IMPRESSION: No DVT within the right or left lower extremity. ACT 112: Negative or not required by law. Electronically signed by: Jv Petty M.D. 08/16/2024 12:25 PM
[2024-08-16 13:40] VITALS: BP 125/78
[2024-08-16 14:06] VITALS: PULSE 95
--- NOTE | 2024-08-16 14:25 | Hospitalist Progress Note ---
Date of Service August 16, 2024 Assessment & Plan (1) Scoliosis of lumbar region due to degenerative disease of spine in adult: Plan: Lumbar scoliosis/lumbar spinal stenosis Status post surgery Sinus tachycardia Patient underwent L2-L3, L3-L4 lateral fusion with interbody cage and posterior instrumentation 3-6 levels on 08/13/2024 EKG reviewed; sinus tachycardia with no ST or T wave changes. Telemetry reviewed; no arrhythmia. Denies any palpitation, chest pain or shortness of breath. Prior history also suggests tachycardia which was asymptomatic. Reports that he is heart rate is in 50s to 60s while in PCP's office Tachycardia likely related with pain/anxiety; optimize pain medication, muscle relaxant. No arrhythmia on the telemetry. Patient did not have any palpitation, chest pain or shortness of breath during the hospitalization. Fever Patient was found to have episode of fever on 08/14/2024. Patient did not report any symptoms. He denied any chills, rigors, visual disturbances, neck rigidity, chest pain, shortness of breath, cough, abdominal pain, diarrhea, nausea, vomiting, urinary symptoms, joint pain, skin rash. Infectious workup including urine culture, blood culture, chest x-ray, respiratory BioFire was done which was negative. Patient also underwent venous duplex which was negative for DVT. Patient reported that he has history of hypothalamic temperature dysregulation(as per his discussion with his neurologist) and has fluctuating body temperature. Patient's fever subsided in the last 24 hours in the hospitalization. Patient was discharged with instructions to follow-up with his PCP closely. Time spent evaluating patient, direct bedside care, chart review, placing orders, interpretation of diagnostic studies, discussion with consultants, patient, and family members, as well as other required patient management activities is 60 minutes Please note the above document was generated using voice recognition software. It may contain grammatical, syntax or spelling errors. Any formal questions or concerns about the content, text or information contained within the body of this dictation should be directly addressed to the provider for clarification Admission and Anticipated Discharge Date Admission Date: August 13, 2024 Subjective Patient seen and examined at bedside. He is comfortable; not in distress Low-grade elevation temperature overnight; no chills, rigors, visual disturbances, neck rigidity, chest pain, shortness of breath, cough, abdominal pain, diarrhea, nausea, vomiting, urinary symptoms, joint pain, skin rash. Review of Systems Review of Systems: All systems reviewed & are unremarkable except as noted in Subjective Physical Exam Physical Exam: Constitutional: Alert oriented x 3; not in distress. Respiratory: normal respiratory effort, lungs clear to auscultation, no wheeze, rales, rhonchi. Normal insp/exp effort, no accessory muscle use Cardiovascular: RRR, no murmur, no edema Vessels: no JVD or carotid bruit Chest: normal inspection of chest Abdomen: normal bowel sounds, soft, nontender, no hepatosplenomegaly Musculoskeletal: Bandages over lower back; clean/dry and intact. Neurologic: PERRL, EOMI, accommodation nl, no face palsy, no dysarthria CN's II- XI intact bilaterally and moves all extremities Psychiatric: A+Ox3, euthymic affect Results & Data Results & Data Vital Signs (Past 12 Hours) Vital Signs Temp Pulse Pulse Pulse Resp BP BP 08/16/24 14:04 95 H 08/16/24 13:39 37.7 C H 107 H 112 H 20 131/86 125/78 08/16/24 07:56 37.7 C H 107 H 20 131/86 08/16/24 07:41 118 H 08/16/24 02:37 37.6 C H 112 H 16 125/78 Pulse Ox O2 Del Method 08/16/24 14:04 08/16/24 13:39 94 08/16/24 07:56 94 Room Air 08/16/24 07:41 08/16/24 02:37 96 Room Air
--- NOTE | 2024-08-18 14:17 | Coding Query ---
CODING QUERY To promote full compliance with coding requirements relating to patient care, provider participation is requested in all cases of plant culture manager uncertainty. Please assist us with the question(s) below: Coding Question(s): Pt admitted for back fusion. 08/15 Hospitalist note mentioned Sepsis 2nd to UTI. Please check below the phrase that describes the Sepsis . Thanks for your help! Pascual Gracia [employer] [facility] Physician's Response(s): Pt had Sepsis d/t UTI Present After admission Pt had Sepsis d/t UTI NOT present on admission ___X__ Pt did not have Sepsis Principal Diagnosis: "that condition established after study, to be chiefly responsible for occasioning the admission of the patient to the hospital for care." Co-Existing Principal Diagnosis: "when two or more diagnoses equally meet the criteria for principal diagnosis as determined by the circumstances of admission, diagnostic work up, and/or therapy provided, and the Alphabetic Index, Tabular List, or another coding guideline does not provide sequencing direction, any one of the diagnoses may be sequenced first." "When the physician has documented what appears to be a current diagnosis in the body of the record, but has not included the diagnosis in the final diagnostic statement, the physician should be asked whether the diagnosis should be added." (Source Coding [facility] 2 QTR90. p3-4) MARKY
--- NOTE | 2024-08-22 13:22 | Coding Query ---
SEPSIS To promote full compliance with coding requirements relating to patient care, physician participation is requested in all cases of radiology therapist uncertainty. Please assist us with the question(s) below: In responding to this query, please exercise your independent professional judgement. The fact that a question is asked does not imply that any particular answer is desired or expected. We appreciate your clarification on this issue. Throughout the medical record, you have clearly documented a localized infection and your patient has clinical evidence of a generalized sepsis or severe sepsis. The term urosepsis is a nonspecific entity and is coded as an UTI. If the patient has sepsis, severe sepsis, from an urinary source or some other source, please clarify in your response below. The medical record reflects the following clinical findings: Pt adm for spinal fusion.. 08/14 progress note documented Sepsis d/t complicated UTI. SBP 80's/ HR 110's. Pt with neurogenic bladder. Pt with fever and tachycardia. U/A had epithelial contamination. Urine Culture negative. Please check below , if applicable, the diagnosis that was treated during this inpatient stay. Thank you . [facility] ____ ( )Bacteremia (Nonspecific laboratory finding of bacteria in the blood) Specify Organism ( ) Present on Admission ( ) Not present on admission ( ) Unable to clinically determine ( ) Septicemia (Systemic disease associated with the presence of pathogenic microorganisms in the blood): Specify Organism ( ) Present on Admission ( ) Not present on admission ( ) Unable to clinically determine ( ) Sepsis Specify Organism Specify Associated Condition/Diagnosis ( ) Present on Admission ( ) Not present on admission ( ) Unable to clinically determine ( ) Severe Sepsis (Sepsis associated with acute organ dysfunction) Specify Organism Specify Associated Condition/Diagnosis ( ) Present on Admission ( ) Not present on admission ( ) Unable to clinically determine ( ) Septic Shock (Severe sepsis with acute circulatory failure, unexplained by other causes) ( ) Present on Admission ( ) Not present on admission ( ) Unable to clinically determine ( ) Other, patient has: Sepsis,ruled out MTDD
== END 2024-08-16 14:18 | disposition home health service (06) | DRG 427 ==
LOC: ASU 05:59 → 3W 14:21 → 2W 08-14 07:40